=== PATIENT | female | born 1960 | race Caucasian/White ===

== ENCOUNTER 2019-12-18 09:14 | Outpatient (CLI) | payer OTHER, SELFPAY ==
--- NOTE | ~2019-12-18 | XR_ITS ---
EXAMINATION: XR foot LT min 3V EXAM DATE: 12/18/2019 09:34 INDICATION: Initial encounter following injury, with pain of the left foot. TECHNIQUE: Left foot dorsoplantar, lateral and oblique projections obtained and reviewed. There is n o prior study for comparison. FINDINGS: There is mild to moderate left metatarsophalangeal joint primary osteoarthritis. There is mild bunion formation. Subchondral cyst formation at the first metatarsal head. Otherwise, left foot joint spaces are unremarkable. 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 Reviewed, dictated and finalized at location A. E MACHINE HEATER
== END 2019-12-18 09:15 | disposition home or self-care (01) ==
LOC: ANHIMG 09:16
PROVIDERS: PCP Internal Medicine; Visit Provider Internal Medicine
DX: S99.929A Unspecified injury of unspecified foot, initial encounter (principal); M19.072 Primary osteoarthritis, left ankle and foot
CPT/HCPCS: 73630

== ENCOUNTER 2020-03-26 12:59 | Outpatient (CLI) | payer OTHER, SELFPAY ==
--- NOTE | ~2020-03-26 | NM_ITS ---
NM hepatobiliary wo pharm DATE: 03/27/2020 08:02 INDICATION: Right upper quadrant abdominal pain. Gallstones. TECHNIQUE: Serial images of the abdomen were obtained up to 60 minutes after intravenous injection of 4.8 mCi 99M technetium Choletec. The gallbladder ejection fraction was determined after intravenous injection of of 1.5 mcg Kinevac. COMPARISON: 10/19/2016 CT abdomen pelvis: Cholelithiasis was demonstrated FINDINGS: There is hepatic extraction of the radiopharmaceutical. Activity is noted in the common terese e duct within 20 minutes. Gallbladder activity is evident within 45 minutes. The 30 minute gallbladder ejection fraction measures 21%, which is within the lower normal limits. IMPRESSION: Negative gallbladder ejection fraction measures 21%; no evidence of acute cholecystitis Reviewed, dictated and finalized at Location [facility]. Reviewed, dictated and finalized at location A.
== END 2020-03-26 13:00 | disposition home or self-care (01) ==
PROVIDERS: PCP Internal Medicine; Visit Provider Internal Medicine Gastroenterology
DX: R10.11 Right upper quadrant pain (principal); K80.50 Calculus of bile duct without cholangitis or cholecystitis without obstruction
CPT/HCPCS: 78226; A9537

== ENCOUNTER 2020-03-28 07:00 | Outpatient (CLI) | payer OTHER, SELFPAY ==
[2020-03-28 17:05] LABS: SARS-CoV-2 RNA PCR Negative
== END 2020-03-28 07:01 | disposition home or self-care (01) ==
LOC: ANHCOVIDDT 07:00
PROVIDERS: PCP Internal Medicine; Visit Provider Internal Medicine Gastroenterology
DX: Z01.818 Encounter for other preprocedural examination (principal); Z11.59 Encounter for screening for other viral diseases
CPT/HCPCS: 87635; C9803; U0003

== ENCOUNTER 2020-03-31 01:43 | Day surgery (SDC) | payer OTHER, SELFPAY ==
[2020-03-25 14:20] VITALS: BMI 27.5
[2020-03-31 08:22] VITALS: BP 115/64; PULSE 65; RESP 16; TEMP 37.1; O2SAT 98
[2020-03-31] MEDS: LACTATED RINGERS 1,000 ML 150 ML IV CONT (08:26)
--- NOTE | 2020-03-31 08:35 | WPDANESEPPF ---
Anes - Initial Pre Proc Eval Procedure: Operation Date: 03/31/20 09:30 Proposed Procedures p Screening Colonoscopy - Aaron Bradley MD Date/Time: 03/31/20 08:35 Surgeon: Aaron Bradley MD Pre Op Diagnosis: Neoplasm Screening Patient Data Age: 60 Gender: F Height: 5 ft 5 in Weight: 72.3 kg Last Vital Signs Temp 37.1 C 03/31/20 08:22 Pulse 65 03/31/20 08:22 Resp 16 03/31/20 08:22 BP 115/64 03/31/20 08:22 Pulse Ox 98 03/31/20 08:22 Allergies Allergy/AdvReac Type Severity Reaction Status Date / Time Penicillins Allergy Intermediate Hives Verified 03/25/20 14:23 Home Medications Medication Instructions Recorded Confirmed Type pravastatin 40 mg tablet 40 mg PO DAILY #90 tablet 10/25/19 03/25/20 Rx paroxetine HCl 20 mg tablet 20 mg PO DAILY 11/21/19 03/25/20 History carvedilol phosphate 40 mg See Rx Instructions .ROUTE 01/21/20 03/25/20 Rx capsule,[id number] multiphase .COMPLEX #90 cap trazodone 200 mg PO HS 03/25/20 03/25/20 History dextroamphetamine-amphetamine 20 See Rx Instructions PO .COMPLEX 03/28/20 03/31/20 Rx mg tablet #75 tablet Patient hx anesthesia problems: none Family hx anesthesia problems: none PMFSH Past Medical History Medical History Anxiety and depression Attention deficit hyperactivity disorder (ADHD), combined type Grade II diastolic dysfunction History of tongue cancer Mitral valve prolapse Other and unspecified hyperlipidemia Primary insomnia Surgical History Surgical History Endometriosis determined by laparoscopy H/O section History of carpal tunnel release History of tonsillectomy S/P bunionectomy Family History Family History Mother Alzheimer disease Unknown Colon cancer Social History Social History Smoking status: Never smoker Second hand tobacco smoke exposure: No Alcohol intake: current Anes - Eval Final PreProcedure Day of Procedure 03/31/20 08:35 Patient weight: overweight Heart: regular rate and rhythm Lungs: clear to auscultation Airway: Mallampati scale class II Neurological: alert and oriented Last oral intake: >/= 8 hours ASA classification: III Emergent: no Anesthetic plan: proceed Anesthesia type and monitoring: general GIVS and standard monitoring Informed Consent: The patient's anesthetic plan and its attendant risks and benefits were discussed with the patient/family/POA. Questions were solicited and answers provided to the satisfaction of the patient/family/POA.
--- NOTE | 2020-03-31 08:40 | WPDGICN ---
Assessment and Plan Assessment and plan (1) Right sided abdominal pain: Code(s): R10.9 - Unspecified abdominal pain Status: Acute Assessment and Plan: Etiology of pain is somewhat on clear. The pain appears more on the side than typical expectations for gallstones. Plan is for screening colonoscopy to assess for colon and etiology of pain. High-fiber diet is advised. Further recommendations will be given after endoscopy. (2) Gallstones: Code(s): K80.20 - Calculus of gallbladder without cholecystitis without obstruction Status: Acute Assessment and Plan: Gallstones noted a year ago by ultrasound. Pain does not immediately correlate with this finding. To exclude symptomatic gallstones a HIDA scan will be obtained. Further recommendations after HIDA scan. GI Consult Note Consult date/time: 03/31/20 08:40 HPI: Yamileth Sims is a 60 year old female Seen in evaluation at the request Dr. Giovanni Gutierrez. Patient complains of right-sided abdominal pain. Often on for the last several months. She describes as burning and aching. Occasional cramps. Symptoms seem to vary. She has difficulty lying on her right side at night. She does note occasional low back pain. It is not appear related to bowel habits are urinating. No relation to oral intake. She reports that her bowel habits are somewhat irregular. Last colonoscopy was 10 years ago. Recent workup including abdominal ultrasound confirms gallstones. Review of Systems Review of Systems: All systems reviewed & are unremarkable except as noted in HPI and below PMFSH Past Medical History Medical History Anxiety and depression Attention deficit hyperactivity disorder (ADHD), combined type Grade II diastolic dysfunction History of tongue cancer Mitral valve prolapse Other and unspecified hyperlipidemia Primary insomnia Surgical History Surgical History Endometriosis determined by laparoscopy H/O section History of carpal tunnel release History of tonsillectomy S/P bunionectomy Family History Family History Mother Alzheimer disease Unknown Colon cancer Social History Social History Smoking status: Never smoker Second hand tobacco smoke exposure: No Alcohol intake: current Meds Home Medications and Allergies Home Medications Medication Instructions Recorded Confirmed Type pravastatin 40 mg tablet 40 mg PO DAILY #90 tablet 10/25/19 03/25/20 Rx paroxetine HCl 20 mg tablet 20 mg PO DAILY 11/21/19 03/25/20 History carvedilol phosphate 40 mg See Rx Instructions .ROUTE 01/21/20 03/25/20 Rx capsule,[id number] multiphase .COMPLEX #90 cap trazodone 200 mg PO HS 03/25/20 03/25/20 History dextroamphetamine-amphetamine 20 See Rx Instructions PO .COMPLEX 03/28/20 03/31/20 Rx mg tablet #75 tablet Allergies Allergy/AdvReac Type Severity Reaction Status Date / Time Penicillins Allergy Intermediate Hives Verified 03/25/20 14:23 Vital Signs Vital Signs - 24 hr 03/31/20 08:22 Temperature 37.1 C Pulse Rate 65 Respiratory Rate 16 Blood Pressure 115/64 Pulse Oximetry 98 Exam Narrative: Exam Narrative: Physical exam reveals patient to be alert. Comfortable at rest. HEENT exam unremarkable. She is anicteric. Lungs are clear to auscultation and percussion. Heart is without murmur or extra sounds. Abdominal exam bowel sounds are present soft nontender no organomegaly. Laboratory work reveals LFTs to be normal. CBC is normal. An ultrasound 1 year ago revealed asymptomatic gallstones.
[2020-03-31 09:35] VITALS: BP 110/69; PULSE 62; RESP 16; O2SAT 100
[2020-03-31 09:45] VITALS: BP 107/64; PULSE 62; RESP 16; O2SAT 100
[2020-03-31 09:55] VITALS: BP 116/75; PULSE 61; RESP 19; O2SAT 100
== END 2020-03-31 10:25 | disposition home or self-care (01) ==
PROVIDERS: PCP Internal Medicine; Visit Provider Internal Medicine Gastroenterology
PROC: 0DJD8ZZ Inspection of Lower Intestinal Tract, Via Natural or Artificial Opening Endoscopic (ICD-10-PCS; CPT 45378; principal; 2020-03-31 09:30)
DX: Z12.11 Encounter for screening for malignant neoplasm of colon (principal); K57.30 Diverticulosis of large intestine without perforation or abscess without bleeding; K64.8 Other hemorrhoids; R10.9 Unspecified abdominal pain; K80.20 Calculus of gallbladder without cholecystitis without obstruction; F41.8 Other specified anxiety disorders; E78.5 Hyperlipidemia, unspecified; I34.1 Nonrheumatic mitral (valve) prolapse
CPT/HCPCS: 45378; J2001; J2704; J7120

== ENCOUNTER 2020-05-05 13:55 | Outpatient (CLI) | payer OTHER, SELFPAY ==
--- NOTE | 2020-05-05 13:57 | ECG_ITS ---
Measurements Intervals [place] Rate: 56 P: 43 WY: 182 QRS: 65 QRSD: 87 T: 33 QT: 398 QTc: 386 Interpretive Statements SINUS BRADYCARDIA BORDERLINE T WAVE ABNORMALITY- ANTERIOR LEADS BORDERLINE ECG Electronically Signed On 05-05-2020 14:48:40 CDT by Waqas Bruno D.O.
[2020-05-05 14:19] LABS: Hematocrit 43.8 % (37.0-47.0); Hemoglobin 15.3 g/dL (12.0-15.0); Mean Corpuscular HGB Conc 34.9 g/dl (32-36); Mean Corpuscular Hemoglobin 31.3 pg (26-34); Mean Corpuscular Volume 89.6 fl (80-100); Mean Platelet Volume 9.2 fl (7.4-10.4); Platelet Count Result 297 k/mm3 (150-375); Red Blood Count 4.89 M/mm3 (4.2-5.4); Red Cell Distribution Width 12.7 % (11.5-14.5); White Blood Count 5.5 K/mm3 (4.5-10.0)
[2020-05-05 14:26] LABS: Alanine Aminotransferase 15 U/L (4-35); Albumin Level 4.5 g/dL (3.5-5.1); Alkaline Phosphatase 68 U/L (38-126); Amylase 81 U/L (30-110); Aspartate Amino Transferase 27 U/L (14-36); Bilirubin,Total 0.5 mg/dL (0.2-1.3); Lipase 83 U/L (23-300); Magnesium 2.1 mg/dL (1.6-2.3)
== END 2020-05-05 13:56 | disposition home or self-care (01) ==
LOC: ANHSURGERY 13:57
PROVIDERS: PCP Internal Medicine; Visit Provider Surgery
DX: K80.10 Calculus of gallbladder with chronic cholecystitis without obstruction (principal); R94.31 Abnormal electrocardiogram [ECG] [EKG]
CPT/HCPCS: 36415; 80076; 82150; 83690; 83735; 85027; 93005

== ENCOUNTER 2020-05-07 00:10 | Outpatient (CLI) | payer OTHER, SELFPAY ==
[2020-05-07 17:34] LABS: SARS-CoV-2 RNA PCR Negative
== END 2020-05-07 00:11 | disposition home or self-care (01) ==
LOC: ANHCOVIDDT 00:11
PROVIDERS: PCP Internal Medicine; Visit Provider Surgery
DX: Z01.812 Encounter for preprocedural laboratory examination (principal); Z11.59 Encounter for screening for other viral diseases
CPT/HCPCS: 87635; C9803; U0003

== ENCOUNTER 2020-05-09 01:29 | Day surgery (SDC) | payer OTHER, SELFPAY ==
[2020-05-05 10:03] VITALS: BMI 27.3
[2020-05-09] VITALS (12 sets, daily range): BP systolic 94–133; BP diastolic 57–80; PULSE 56–102; RESP 10–18; TEMP 36.1–36.4; O2SAT 93–100
--- NOTE | 2020-05-09 10:48 | WPDANESEPPF ---
Anes - Initial Pre Proc Eval Procedure: Operation Date: 05/09/20 12:00 Proposed Procedures p Laparoscopic Cholecystectomy, Possible Intraoperative Cholangiogram, Possible Open - Aubrey Ronquillo MD Date/Time: 05/09/20 10:48 Surgeon: Aubrey Ronquillo MD Pre Op Diagnosis: Chronic cholecystitis with cholelithiasis Patient Data Age: 60 Gender: F Height: 1.65 m Weight: 74.5 kg Allergies Allergy/AdvReac Type Severity Reaction Status Date / Time Penicillins Allergy Intermediate Hives Verified 05/09/20 10:24 adhesive tape AdvReac Mild RASH, Verified 05/09/20 10:24 ITCHING Home Medications Medication Instructions Recorded Confirmed Type paroxetine HCl 20 mg tablet 20 mg PO DAILY 11/21/19 05/09/20 History pravastatin 40 mg tablet 40 mg PO DAILY #90 tablet 04/21/20 05/09/20 Rx trazodone 100 mg tablet 200 mg PO HS #180 tablet 04/21/20 05/09/20 Rx calcium polycarbophil [FiberCon] 1,250 mg PO DAILY 05/05/20 05/09/20 History carvedilol phosphate 40 mg PO DAILY 05/05/20 05/09/20 History dextroamphetamine-amphetamine 20 mg PO QACLUNCH 05/05/20 05/09/20 History dextroamphetamine-amphetamine 30 mg PO DAILY 05/05/20 05/09/20 History [Adderall] Patient hx anesthesia problems: post op nausea/vomiting Family hx anesthesia problems: none PMFSH Past Medical History Medical History (Updated 05/08/20 @ 08:41 by Hari Foy DO) Anxiety and depression Attention deficit hyperactivity disorder (ADHD), combined type Grade II diastolic dysfunction History of tongue cancer Mitral valve prolapse Other and unspecified hyperlipidemia Primary insomnia SVT (supraventricular tachycardia) 2009 Surgical History Surgical History (Updated 05/01/20 @ 08:46 by Shanique Simpson) Endometriosis determined by laparoscopy H/O section H/O rectal sphincterotomy History of carpal tunnel release History of tonsillectomy S/P bunionectomy Social History Social History Smoking status: Never smoker Second hand tobacco smoke exposure: No Alcohol intake: current Anes - Eval Final PreProcedure Day of Procedure 05/09/20 10:48 Patient weight: overweight Heart: regular rate and rhythm Lungs: clear to auscultation and normal air movement Airway: Mallampati scale class II Neurological: alert and oriented Last oral intake: >/= 8 hours ASA classification: III Emergent: no Anesthetic plan: proceed Anesthesia type and monitoring: general ETT and standard monitoring Informed Consent: The patient's anesthetic plan and its attendant risks and benefits were discussed with the patient/family/POA. Questions were solicited and answers provided to the satisfaction of the patient/family/POA.
[2020-05-09] MEDS: LACTATED RINGERS 1,000 ML 30 ML IV CONT ×2 (10:50→13:17)
--- NOTE | 2020-05-09 11:11 | WPDHPUPDATE1 ---
History and Physical Update Update Date/Time: 05/09/20 11:11 History and Physical has been reviewed, including an updated exam of the patient. There are NO changes in the patient's condition. Risks, benefits, and alternatives have been discussed and questions answered. Patient agrees to proceed with procedure.
[2020-05-09] MEDS: FAMOTIDINE 20 MG/2 ML VIAL IV PUSH (11:22)
[2020-05-09] MEDS: SCOPOLAMINE 1.5 MG PATCH TRANSDERM (11:22)
[2020-05-09] MEDS: CLINDAMYCIN 900 MG/NS 50 ML 900 MG/50 ML PIGGYBACK 50 MG IVPB (11:55)
[2020-05-09] MEDS: BUPIVACAINE/EPINEPHRINE 0.5% 30 ML VIAL INFILTRATE (12:38)
--- NOTE | 2020-05-09 13:29 | PM.PROC ---
Procedure Note - Detailed Date of procedure: 05/09/20 Pre-op diagnosis: Chronic cholecystitis with cholelithiasis Chronic Cholecystitis with Cholelithiasis Post-op diagnosis: same Procedure performed: Laparoscopic Cholecystectomy Description of procedure: Patient was seen preoperatively in the holding area and risks, benefits and alternatives confirmed. Patient was taken to the operating room and general anesthesia was induced. A time out was then preformed with the surgery team confirming patient and site of surgery. The abdomen was prepped and draped in the usual sterile fashion. Incision was made just below the umbilicus with an 11 blade knife. I placed 2 stay sutures of O- Vicryl on either side of the mid-line fascia beneath the umbilicus and was then able to slide in the Armendariz cannula through the fascial defect into the peritoneum. First under low flow and then under high flow the abdomen was insufflated with carbon dioxide never exceeding a pressure of 14. Three 5 mm trocars were then introduced under direct vision. The following trocars were introduced under direct vision: a 5 mm in the epigastrium and two 5 mm trocars along the right costal margin laterally in the subcostal area. There were no significant omental adhesions to the underside of the gallbladder. I then carefully used the L-shaped cautery and the [place] dissector to dissect out the triangle of Calot. I then was able to dissect out both the cystic duct and cystic artery and identify a window of safety. The gall bladder was grasped and the cystic duct and artery were dissected free and clipped with an 5 mm endo-clip truer pinion and wheel. The cystic duct and artery were clipped with use of 2 clips on the patient's side 1 on the gallbladder side utilizing a 5 mm endoclip-truer pinion and wheel. The cystic duct was then transected. The cystic artery was also transected at this point. The gall bladder was removed using electrocautery and then removed from the abdomen using a large 10 mm grasper via the umbilical incision. This patient previously had endometriosis and surgery for that. We noted as we did our exploration that there were some adhesions of the uterus to the anterior abdominal wall there did not appear to be any that were are concerning for possible cause the causing small bowel obstruction. There were not any bandlike adhesions it was more broad adhesions anchoring the anterior surface of the uterus to the anterior the underside of the abdomen. There was also adhesion of the right colon to the lateral abdominal wall. Some pictures of this were taken we did not see any thing that looked like implants of endometriosis at this time. The trocars were removed visualizing hemostasis and the remaining gas evacuated. The large trocar site at the umbilicus was closed with use of the 2 stay sutures of 0 Vicryl mentioned above and also a figure of 8 O-Vicryl suture. The 2 stay sutures mentioned above on either side of the fascia were also tied together to help approximate this midline fascia. Further local anesthetic was placed into each incision for postop pain control. The skin incisions were closed with subcuticular suture of 4-0 Monocryl. Surgical glue then was applied to all the incisions. Patient tolerated the procedure well was taken to the recovery room in good condition. Anesthesia: GETA Surgeon: Aubrey Ronquillo MD Hvac Service Technician: Rae OGDEN, OR visitor services assistant Estimated blood loss (mL): 10 Drains: No Packing: No Pathology: yes (Gallbladder) Complications: No immediate complications Condition: stable Disposition: PACU Findings: Non-inflamed gallbladder with some palpable stones within it upon removal.
[2020-05-09] MEDS: HYDROMORPHONE HCL 2 MG/ML VIAL 0.5 MG IV PUSH (14:24)
== END 2020-05-09 16:38 | disposition home or self-care (01) ==
PROVIDERS: PCP Internal Medicine; Visit Provider Surgery
PROC: 0FT44ZZ Resection of Gallbladder, Percutaneous Endoscopic Approach (ICD-10-PCS; CPT 47562; principal; 2020-05-09 12:00)
DX: K80.10 Calculus of gallbladder with chronic cholecystitis without obstruction (principal); F41.8 Other specified anxiety disorders; F90.2 Attention-deficit hyperactivity disorder, combined type; E78.5 Hyperlipidemia, unspecified; I34.1 Nonrheumatic mitral (valve) prolapse
CPT/HCPCS: 47562; 88304; A9270; J0131; J1100; J1170; J2250; J2405; J2704; J2710; J3010; J7120; Q9966

== ENCOUNTER 2020-05-23 09:21 | Outpatient (CLI) | payer OTHER, SELFPAY ==
[2020-05-23 09:53] LABS: Basophils Percent Auto 0.7 % (0.2-1.2); Eosinophils Absolute Auto 0.2 K/mm3 (0-0.3); Eosinophils Percent Auto 4.2 % (0-4.4); Hematocrit 44.3 % (37.0-47.0); Hemoglobin 15.4 g/dL (12.0-15.0); Immature Granulocyte Absolute 0.02 K/mm3 (0.00-0.031); Immature Granulocyte Percent A 0.4 % (0-0.5); Lymphocytes Absolute Auto 1.47 K/mm3 (0.9-3.2); Lymphocytes Percent Auto 26.6 % (18.3-44.2); Mean Corpuscular HGB Conc 34.8 g/dl (32-36); Mean Corpuscular Hemoglobin 31.3 pg (26-34); Mean Platelet Volume 9.6 fl (7.4-10.4); Monocytes Absolute Auto 0.4 K/mm3 (0.1-0.6); Monocytes Percent Auto 7.2 % (2.6-8.5); Neutrophils Absolute Auto 3.4 K/mm3 (1.3-6.7); Neutrophils Percent Auto 60.9 % (45.5-73.1); Platelet Count Result 358 k/mm3 (150-375); Red Blood Count 4.92 M/mm3 (4.2-5.4); Red Cell Distribution Width 12.4 % (11.5-14.5); White Blood Count 5.5 K/mm3 (4.5-10.0)
[2020-05-23 10:05] LABS: Cholesterol 174 mg/dL (0-200); HDL Direct 49 mg/dL; Triglycerides 134 mg/dL (<150)
[2020-05-23 10:06] LABS: Alanine Aminotransferase 16 U/L (4-35); Albumin Level 4.4 g/dL (3.5-5.1); Alkaline Phosphatase 73 U/L (38-126); Aspartate Amino Transferase 29 U/L (14-36); Bilirubin,Total 0.5 mg/dL (0.2-1.3); Blood Urea Nitrogen 11 mg/dL (7-17); Calcium 9.4 mg/dL (8.4-10.2); Carbon Dioxide 33 mmol/L (22-30); Chloride 98 mmol/L (98-107); Estimated Glomerular Filt Rate > 60; Glucose 102 mg/dL (65-105); Potassium 4.2 mmol/L (3.4-5.0); Sodium 138 mmol/L (137-145)
[2020-05-23 10:15] LABS: LDL Cholesterol Direct 86 mg/dL
== END 2020-05-23 09:22 | disposition home or self-care (01) ==
PROVIDERS: PCP Internal Medicine; Visit Provider Nurse Practitioner Family
DX: K80.10 Calculus of gallbladder with chronic cholecystitis without obstruction (principal)
CPT/HCPCS: 36415; 80053; 80061; 85025

== ENCOUNTER 2020-08-15 07:40 | Outpatient (CLI) | payer OTHER, SELFPAY ==
--- NOTE | ~2020-08-15 | DEXA_ITS ---
Bone Density Report Name: Yamileth Sims Age: 60 Sex: Female Ethnicity: White Date of : 1960 Indication: postmenopausal; cancer; Referring Provider: Yocasta Holliday Study: Bone densitometry was performed. Exam Date: August 15, 2020 Accession number: [id number] Bone Density: Region BMD T-score Z-score Classification AP Spine (L1-L4) 1.131 0.8 2.1 Normal Femoral Neck (Left) 0.911 0.6 1.8 Normal Total Hip (Left) 1.072 1.1 2.0 Normal Total Hip Bilateral Avg 1.062 1.0 1.9 Normal Femoral Neck (Right) 0.835 -0.1 1.1 Normal Total Hip (Right) 1.051 0.9 1.8 Normal World Health Organization criteria for BMD impression classify patients as: Normal (T-score at or above -1.0), Osteopenia (T-score between -1.0 and -2.5), or Osteoporosis (T-score at or below -2.5). 10-year Fracture Risk: FRAX not reported because: All T-scores for Spine Total, Hip Total, Femoral Neck at or above -1.0 Clinical Information Provided by Patient: Has the following medical conditions: Cancer Patient maximum height was 65 Menopause Age: 56 No regular weight bearing exercise Drinks caffeinated beverages Onset of menses at age 14 Number of children 2 Impression: The patient has normal bone mass. Discussion: BONE DENSITY IS ABOVE THE MINIMUM DESIRABLE LEVEL AT ALL SKELETAL SITES TESTED. This patient?s bone mineral density is above the minimum desirable level (T-score -1.0 or better) at all sites measured. The patient should follow a healthful lifestyle (good nutrition with adequate calcium and vitamin D, and appropriate weight-bearing exercise). Follow-Up: Consider repeating this study in 5 years or sooner if there is some new clinical indication. Reported by: [facility] on 08/15/2020 8:02:00 AM. Reviewed, dictated and finalized at location A. [facility]
--- NOTE | ~2020-08-15 | MM_ITS ---
EXAMINATION: MM screening [facility] BI w kristen HISTORY: Screening mammogram TECHNIQUE: Craniocaudal and mediolateral oblique 3-D tomosynthesis images were obtained and synthetic 2-D images were generated. CAD analysis was submitted and interpreted. COMPARISON: 07/17/2019, 07/14/2018, 07/25/2017 BREAST PARENCHYMAL COMPOSITION: The breasts are extremely dense, which lowers the sensitivity of mamm ography. FINDINGS: There is no evidence of suspicious mass, calcification, or architectural distortion to sugg est malignancy in either breast. There has been no suspicious interval change. IMPRESSION: 1. No mammographic evidence of malignancy. 2. Recommend routine screening mammography in one year. BI-RADS Category 1: Negative Reviewed, dictated and finalized at location A.
== END 2020-08-15 07:41 | disposition home or self-care (01) ==
LOC: ANHIMG 07:41
PROVIDERS: PCP Internal Medicine; Visit Provider Nurse Practitioner
DX: Z12.31 Encounter for screening mammogram for malignant neoplasm of breast (principal); Z78.0 Asymptomatic menopausal state
CPT/HCPCS: 77063; 77067; 77080

== ENCOUNTER 2020-11-11 18:49 | Outpatient (CLI) | payer OTHER, SELFPAY ==
--- NOTE | ~2020-11-11 | XR_ITS ---
EXAMINATION: XR lumbar spine 2-3V DATE: 11/11/2020 19:04 INDICATION: Low back pain TECHNIQUE: Anteroposterior and lateral views of the lumbar spine, and cone-down lateral view of the l umbosacral junction were obtained. COMPARISON: 10/15/2016 FINDINGS: There are 3 mm of stable retrolisthesis at L2-3 and L3-4 and 4 mm of stable anterolisthesis of L4 on L5. The vertebral body heights are maintained. There is mild chronic loss of intervertebral disc space height at L2-3 and L4-5. No fracture is identified. There is moderate lower facet osteoar thritis. Small degenerative osteophytes project from the anterior endplates of multiple vertebral bod ies. Surgical clips in the right upper quadrant are likely from prior cholecystectomy. IMPRESSION: 1. Moderate lumbar spondylosis without acute findings or significant interval change. Reviewed, dictated and finalized at location A. 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 Moderate lumbar spondylosis without acute findings or significant interval yulia talley
== END 2020-11-11 18:50 | disposition home or self-care (01) ==
LOC: ANHIMG 18:50
PROVIDERS: PCP Internal Medicine; Visit Provider Nurse Practitioner
DX: M47.896 Other spondylosis, lumbar region (principal)
CPT/HCPCS: 72100

== ENCOUNTER 2021-08-17 08:40 | Outpatient (CLI) | payer OTHER, SELFPAY ==
--- NOTE | ~2021-08-17 | MM_ITS ---
EXAMINATION: MM screening [facility] BI w kristen HISTORY: Screening mammogram TECHNIQUE: Craniocaudal and mediolateral oblique 3-D tomosynthesis images were obtained and synthetic 2-D images were generated. CAD analysis was submitted and interpreted. COMPARISON: 08/15/2020, 07/17/2019, 07/14/2019 BREAST PARENCHYMAL COMPOSITION: The breasts are extremely dense, which lowers the sensitivity of mamm ography. FINDINGS: There is no evidence of suspicious mass, calcification, or architectural distortion to sugg est malignancy in either breast. There has been no suspicious interval change. IMPRESSION: 1. No mammographic evidence of malignancy. 2. Recommend routine screening mammography in one year. BI-RADS Category 1: Negative Reviewed, dictated and finalized at location A.
== END 2021-08-17 08:41 | disposition home or self-care (01) ==
LOC: ANHIMG 08:42
PROVIDERS: PCP Internal Medicine; Visit Provider Nurse Practitioner Obstetrics & Gynecology
DX: Z12.31 Encounter for screening mammogram for malignant neoplasm of breast (principal)
CPT/HCPCS: 77063; 77067

== ENCOUNTER 2021-11-23 12:20 | Outpatient (CLI) | payer OTHER, SELFPAY ==
--- NOTE | ~2021-11-23 | XR_ITS ---
EXAMINATION: XR wrist LT min 3V EXAM DATE: 11/23/2021 12:42 INDICATION: Left Wrist Pain Falling Injury In . TECHNIQUE: Left wrist frontal, frontal with ulnar deviation, oblique and lateral projections obtained and reviewed. There is no prior study for comparison. FINDINGS: Left wrist scapholunate joint space is maintained. There is moderate 1st carpometacarpal pr imary osteoarthritis. There are no acute fractures or dislocations identified. There is no subcutane ous gas. The soft tissue is unremarkable. There are no radiopaque foreign bodies. IMPRESSION: 1. XR wrist LT min 3V exam without acute osseous findings. Reviewed, dictated and finalized at location A. GLOSSER
== END 2021-11-23 12:21 | disposition home or self-care (01) ==
PROVIDERS: PCP Internal Medicine; Visit Provider Plastic Surgery
DX: M19.032 Primary osteoarthritis, left wrist (principal)
CPT/HCPCS: 73110

== ENCOUNTER 2021-12-23 16:00 | Outpatient (RCR) | payer OTHER, SELFPAY ==
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
--- NOTE | 2021-11-26 07:33 | PCPTNOTE ---
Patient did not show up for scheduled appointment this date. She did call later to inform our clinic she over slept. She was rescheduled.
--- NOTE | 2021-12-02 12:04 | PCPTNOTE ---
Patient called & cancelled scheduled appointment this date due to having a last minute meeting at work.
--- NOTE | 2021-12-14 15:32 | PCPTNOTE ---
Patient called & cancelled scheduled appointment this date due to having car problems.
--- NOTE | 2021-12-17 11:45 | PCPTNOTE ---
Patient called & cancelled scheduled appointment this date due to snowy weather.
--- NOTE | 2021-12-21 15:22 | PCPTNOTE ---
Patient called & cancelled scheduled appointment this date due to family emergency. Pt's Aunt has been on hospice and she received an urgent call. Will continue per POC.
--- NOTE | 2021-12-25 07:15 | PCPTNOTE ---
Patient did not show up for scheduled appointment this date. Called pt due to her her no show, she states she over slept. Attempted to give her later times, but the times did not work with her sched. Her re-eval is scheduled for 12/28.
--- NOTE | 2021-12-28 16:27 | PCPTNOTE ---
Patient did not show up for scheduled appointment this date. She had been reminded of this visit last week on 12/25/21 after her no show for that visit. Will plan to DC per no show policy
--- NOTE | 2022-01-12 10:31 | PCPTNOTE ---
Admitting Provider: Attending Provider: Giovanni Gutierrez DO Patient:Yamileth Sims Date of :1960 Physical Therapy Discharge Note Patient has not returned for any further treatments since 12/23/2021, therefore she will be discharged at this time. Patient?s initial visit was on 11/24/2021 and she had a total of 7 visits with 6 cancelled or no show visits. The goals have been not met due to limited visits attended. Thank you for referring this patient to [facility]. Please review, sign, date and return this discharge summary SOURAV. I have been updated about the patient's current status and I agree with discharge from the above service at this time. Referring Physician Date
== END 2022-01-13 09:08 | disposition home or self-care (01) ==
LOC: ANHPT 16:00
PROVIDERS: PCP Internal Medicine; Visit Provider Internal Medicine
DX: M79.605 Pain in left leg (principal); M54.50 Low back pain, unspecified; G89.29 Other chronic pain
CPT/HCPCS: 97014; 97110; 97162; G0283

== ENCOUNTER 2022-01-01 13:07 | Outpatient (CLI) | payer OTHER, SELFPAY ==
--- NOTE | ~2022-01-01 | MMUS_ITS ---
EXAMINATION: MM diagnostic gertrude LT w kristen, US breast LT limited HISTORY: Palpable left breast lump TECHNIQUE: Additional 3-D tomosynthesis images of the left breast were performed and synthetic 2-D im ages were generated. CAD analysis was submitted and interpreted. High resolution Limited left breast ultrasound was performed. COMPARISON: Comparison to multiple prior studies sequentially, with oldest reviewed study dated 07/11. BREAST PARENCHYMAL COMPOSITION: The breasts are extremely dense, which lowers the sensitivity of mamm ography. FINDINGS: MAMMOGRAPHIC FINDINGS: There is a new mass in the upper inner quadrant of the left breast which is obscured by dense fibrogl andular tissue. There are no suspicious calcifications or architectural distortion. ULTRASOUND: Limited left breast ultrasound: At 10:00, 8 cm from the nipple there is an irregular shaped hypoechoi c mass with mixed posterior attenuation measuring 3.3 x 2.9 x 2.4 cm. There are angular margins and i nternal vascularity. IMPRESSION: 1. Irregular heterogeneous left breast mass at 10:00, 8 cm from the nipple corresponding to the area of mammographic abnormality. 2. Ultrasound-guided left breast biopsy recommended. BI-RADS category 4, suspicious findings. Reviewed, dictated and finalized at location A. 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 Irregular heterogeneous left breast mass at 10:00, 8 cm from the nipple mirna esponding to the area of mammographic abnormality. 2. Ultrasound-guided left breast biopsy recommended. BI-RADS category 4, suspicious findings.
== END 2022-01-01 13:08 | disposition home or self-care (01) ==
LOC: ANHIMG 13:13
PROVIDERS: PCP Internal Medicine; Visit Provider Nurse Practitioner Obstetrics & Gynecology
DX: N64.4 Mastodynia (principal); R92.8 Other abnormal and inconclusive findings on diagnostic imaging of breast
CPT/HCPCS: 76642; 77061; 77065; G0279

== ENCOUNTER → 2022-05-21 02:03 | Outpatient (CLI) | payer OTHER, SELFPAY ==
[2022-05-21 12:28] LABS: SARS-CoV-2 RNA PCR Positive
== END ==
PROVIDERS: PCP Internal Medicine; Visit Provider Nurse Practitioner
DX: U07.1 COVID-19 (principal)
CPT/HCPCS: C9803; U0003; U0005

== ENCOUNTER 2024-04-10 13:44 | Outpatient (CLI) | payer OTHER, SELFPAY ==
--- NOTE | ~2024-04-10 | XR_ITS ---
Left foot Technique: AP, oblique, and lateral views were obtained. Clinical History: Pain Findings: There is an acute, transverse, essentially nondisplaced fracture the base of the fifth meta tarsal.. There is mild degenerative change of the first MTP joint region. Soft tissues are unremarkab le. Impression: Acute fracture of the base the fifth metatarsal, as detailed above. Mild degenerative change about the first MTP joint. Reviewed, dictated and finalized at location M. Impression: Acute fracture of the base the fifth metatarsal, as detailed above. Mild degenerative change about the first MTP joint.
--- NOTE | ~2024-04-10 | XR_ITS ---
Left ankle Technique: AP, oblique, and lateral views were obtained. Clinical History: Pain Findings: There is an acute, transverse, nondisplaced fracture the base the fifth metatarsal. No othe r fracture or dislocation seen. Ankle mortise and other visualized joint spaces are preserved. Soft tissues are otherwise unremarkable. Impression: Acute fracture the base of fifth metatarsal, as detailed above. Reviewed, dictated and finalized at location M. Impression: Acute fracture the base of fifth metatarsal, as detailed above.
== END 2024-04-10 13:45 | disposition home or self-care (01) ==
LOC: ANHIMG 13:45
PROVIDERS: PCP Nurse Practitioner Family; Visit Provider Nurse Practitioner Family
DX: S92.355A Nondisplaced fracture of fifth metatarsal bone, left foot, initial encounter for closed fracture (principal); M19.072 Primary osteoarthritis, left ankle and foot; X58.XXXA Exposure to other specified factors, initial encounter
CPT/HCPCS: 73610; 73630

== ENCOUNTER 2025-04-01 17:40 | Outpatient (CLI) | payer OTHER, SELFPAY ==
--- NOTE | ~2025-04-01 | XR_ITS ---
EXAM: XR wrist RT min 3V DATE: 04/01/2025 17:54 HISTORY: Right wrist pain, FELL YESTERDAY, PAIN ANTERIOR AN POSTERIOR . COMPARISON: None available. FINDINGS: Osteopenia. No fracture or dislocation. No lytic or blastic lesion. Mild scattered degener ative change. Ulnar negative variance. No erosion or periosteal change. Soft tissues within normal li mits. IMPRESSION: No acute osseous finding in the right wrist. Reviewed, dictated and finalized at location K.
--- OUTSIDE RECORDS SUMMARY | 2025-04-01 17:44 | XMS_ITS | Encounter Summary ---
Author Organization [facility] Address [address] [place] [address] Care Team Providers Care Industrial Radiographer Name Role Phone Wei Swan MD Primary Care Provider [phone] Encounter Details Date Type Department Care Team (Late st Contact Info) Description 06/19/2020 Lab Requisition [facility] Care DermPath Lab [address] [place] [id number] Phillip Sims MD [address] [place] [address] Social History Tobacco Use Types Packs/Day Years Used Date Smoking Tobacco: Never Smokeless Tobacco: Never Alcohol Use Standard Drinks/Week Comments Yes 0 (1 standard drink = 0.6 oz pur e alcohol) Comments Unknown Sex and Gender Information Value Date Recorded Sex Assigned at Not on file 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 Gender Identity Not on file Sexual Orientation Not on file documented as of this encounter Plan of Treatment Not on file documented as of this encounter Procedures Procedure Name Priority Date/Time Associated Diagnosis Comments DERMATOPATHOLOGY Routine 06/18/2020 12:0 0 AM CDT documented in this encounter Results * DERMATOPATHOLOGY (06/18/2020 12:00 AM CDT) Case Report Dermatopathology Report Case: [id number] Authorizing Provider: Phillip Sims MD Collected: 06/18/2020 12:00 AM Ordering Location: [facility] Care DermPath Lab Received: 06/19/2020 12:27 PM Pathologist: Krzysztof Larson MD Specimens: A) - Skin, right medial breast B) - Skin, dependent left lat breast 0 12:34 PM CDT DERMATOPATHOLOGY LABORATORY Final Diagnosis Specimen A. SKIN, right medial breast: LICHEN PLANUS-LIKE KERATOSIS (BENIGN LICHENOID KERATOSIS), RESOVLING (L82.1) Specimen B. SKIN, dependent left lat breast: LICHEN PLANUS-LIKE KERATOSIS (BENIGN LICHENOID KERATOSIS) (L82.1) 0 12:34 PM CDT DERMATOPATHOLOGY LABORATORY at 1234 CDT Clinical History A-B: R/O dys nevus. 0 12:34 PM CDT DERMATOPATHOLOGY LABORATORY Gross Description Specimen A: Received is one formalin filled container labeled with the patient's name and designated right medial breast. The specimen consists of a shave biopsy measuring [id number]. Jar 0. Specimen B: Received is one formalin filled container labeled with the patient's name and designated dependent left lat breast. The specimen consists of a shave biopsy (2 pieces) measuring [id number] & [id number]. Jar 0. 0 12:34 PM CDT DERMATOPATHOLOGY LABORATORY Microscopic Description Specimen A. SKIN, right medial breast: The epidermis is mildly acanthotic. There is a focal lichenoid infiltrate with vacuolar changes of basilar keratinocytes and scattered necrotic keratinocytes. The number of melanocytes, highlighted by MART-1/Melan-A immunohistochemical staining, is only mildly increased. Specimen B. SKIN, dependent left lat breast: The epidermis is mildly acanthotic. There is a lichenoid infiltrate with vacuolar changes of basilar keratinocytes and scattered necrotic keratinocytes. The number of melanocytes, highlighted by MART-1/Melan-A immunohistochemical staining, is only mildly increased. 0 12:34 PM CDT DERMATOPATHOLOGY LABORATORY Disclaimer An external and internal positive and negative controls are appropriate for the histochemical, immunohistochemical and immunofluorescence stain(s) in this case (if any), except where stated explicitly. The performance characteristics of the stain(s) cited in this report were developed and its performance characteristic determined by the Dermatopathology Laboratory at [facility], directed by Dr. Deepthi Larson. These tests need not be, and therefore are not, approved by the [place] Food and Drug Administration. The tests are used for clinical purposes. Billing Codes Specimen Charges Stain Charges 71814 72345 1 1 [id number] [id number] 1 1 0 12:34 PM CDT DERMATOPATHOLOGY LABORATORY Embedded Images 0 12:34 PM CDT DERMATOPATHOLOGY LABORATORY Pathology/Cytology TISSUE SPECIMEN FROM SKIN / Unknown 06/18/2020 06/19/2020 12:27 PM CDT Miscellaneous samples (specimen) TISSUE SPECIMEN FROM SKIN / Unknown 06/18/2020 06/19/2020 12:27 PM CDT Phillip Sims MD LAB - PATHOLOGY/CYTOLOGY ORD ERABLES Final Result DERMATOPATHOLOGY LABORATORY [facility] - Department of Dermatology Distance Education Coordinator Center/[address] [phone] documented in this encounter Visit Diagnoses Not on filedocumented in this encounter Care Teams Industrial Radiographer Relationship Specialty Start Date End Date Wei Swan MD [address] [place] [address] PCP - General 06/28/17 documented as of this encounter
--- OUTSIDE RECORDS SUMMARY | 2025-04-01 17:44 | XMS_ITS | Encounter Summary ---
Author Organization [facility] Address [address] [place] [address] Phone Care Team Providers Care Correspondence Renew Clerk Name Role Phone Yasir Gonzalez MD Unavailable Aft, Ciara Dorsey MD PhD Unavailable [phone] Monika Bryant MD Unavailable Yeny Oliveira PhD Unavailable [phone] Yossi Reaves MD Primary Care Provider [phone] Jessenia Vaughn POWERTRAIN ENGINEER Unavailable [phone] Encounter Details Date Type Department Care Team (Latest Contact Info) Description 10/15/2024 Orders Only [facility] Scanning, Provider Social History Tobacco Use Types Packs/Day Years [...] on file 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 Gender Identity Female 03/11/2022 12:06 PM CDT Sexual Orientation Straight 03/11/2022 12 :06 PM CDT documented as of this encounter Plan of Treatment Not on file documented as of this encounter Procedures Procedure Name Priority Date/Time Associated Diagnosis Comments SCAN - LABS 10/15/2024 documented in this encounter Results * SCAN - LABS (10/15/2024) us Provider Scanning Edited Result - Final documented in this encounter Visit Diagnoses Not on filedocumented in this encounter Care Teams Correspondence Renew Clerk Relationship Specialty Start Date End Date Yossi Reaves MD [address] [place] [address] PCP - General Family Practice 09/02/23 Yasir Gonzalez MD [address] [place] [address] Consulting Physician Medical Oncology 03/08/22 Aft, Ciara Dorsey MD PhD [address] [place] [address] Surgeon Surgical Oncology 03/16/22 Monika Bryant MD [address] [place] [address] Radiation Oncologist Radiation Oncology 11/25/22 Yeny Oliveira, PhD [address] [place] [address] Nurse Practitioner Radiation Oncology 02/07/23 Jessenia Vaughn NP [address] [place] [address] Nurse Practitioner Nurse Practitioner 09/05/23 documented as of this encounter
--- OUTSIDE RECORDS SUMMARY | 2025-04-01 17:44 | XMS_ITS | Encounter Summary ---
Author Organization [facility] Address [address] [place] [address] Phone Care Team Providers Care Watch Electrician Name Role Phone Yasir Gonzalez MD Unavailable Aft, Ciara Dorsey MD PhD Unavailable Monika Bryant MD Unavailable Yeny Oliveira PhD Unavailable [phone] Yossi Reaves MD Primary Care Provider [phone] Jessenia Vaughn BAND INSTRUMENT MAKER Unavailable [phone] Encounter Details Date Type Department Care Team (Latest Contact Info) Description 10/03/2024 Orders Only [facility] Scanning, Provider [...] on file 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 Gender Identity Female 03/11/2022 12:06 PM CDT Sexual Orientation Straight 03/11/2022 12 :06 PM CDT documented as of this encounter Plan of Treatment Not on file documented as of this encounter Procedures Procedure Name Priority Date/Time Associated Diagnosis Comments SCAN - PATHOLOGY 10/03/2024 documented in this encounter Results * SCAN - PATHOLOGY (10/03/2024) us Provider Scanning Final Result documented in this encounter Visit Diagnoses Not on filedocumented in this encounter Care Teams Watch Electrician Relationship Specialty Start Date End Date Yossi Reaves MD [address] [place] [address] PCP - General Family Practice 09/02/23 Yasir Gonzalez MD [address] [place] [address] Consulting Physician Medical Oncology 03/08/22 Aft, Ciara Dorsey MD PhD [address] [place] [address] Surgeon Surgical Oncology 03/16/22 Monika Bryant MD [address] [place] [address] Radiation Oncologist Radiation Oncology 11/25/22 Yeny Oliveira, PhD [address] [place] [address] Nurse Practitioner Radiation Oncology 02/07/23 Jessenia Vaughn NP [address] [place] [address] Nurse Practitioner Nurse Practitioner 09/05/23 documented as of this encounter
--- OUTSIDE RECORDS SUMMARY | 2025-04-01 17:44 | XMS_ITS | Clinical Summary ---
Author Organization [facility] Address [address] [place] [address] Care Team Providers Care Supervisor Painting Department Name Role Phone Yasir Gonzalez MD Unavailable Aft, Ciara Dorsey MD PhD Unavailable [phone] Monika Bryant MD Unavailable Yeny Oliveira PhD Unavailable [phone] Yossi Reaves MD Primary Care Provider [phone] Jessenia Vaughn AUTO BODY PAINTER Unavailable [phone] Allergies Active Allergy Reactions Criticality Noted Date Comments Adhesive Rash Medium 02/05/2022 Penicillins Hives,Itching Medium 02/05/2022 Medications carvedilol CR (COREG CR) 40 mg 24 hr capsuleIndicati ons:hypertensio n Take 1 capsule (40 mg total) by mouth every morning 12/01/19 22 Active omeprazole (PriLOSEC) 20 mg capsuleIndicati ons:Treatment of Non-Bleeding Gastric Disorder Take 1 capsule (20 mg total) by mouth every morning 12/11/19 22 Active pravastatin (PRAVACHOL) 40 mg tabletIndicatio ns:hyperlipidem ia Take 1 tablet (40 mg total) by mouth every morning 01/28/20 22 Active traZODone (DESYREL) 100 mg tabletIndicatio ns:insomnia associated with depression Take 1 tablet (100 mg total) by mouth nightly 05/11/20 17 Active acetaminophen (TYLENOL) 500 mg tabletIndicatio ns:Pain Take 1 tablet (500 mg total) by mouth as needed for pain Active ibuprofen (ADVIL,MOTRIN) 200 mg tab/cap Take 1 tablet/capsule (200 mg total) by mouth 2 (two) times a day as needed for pain 05/03/20 22 Active PARoxetine (PAXIL) 20 mg tabletIndicatio ns:night sweats Take 1 tablet (20 mg total) by mouth nightly Active doxycycline (PERIOSTAT) 20 mg tablet Take 1 tablet (20 mg total) by mouth 2 (two) times a day Active dextroamphetami ne sulfate (DEXTROSTAT) 15 mg tablet Active vibegron (Gemtesa) 75 mg tabletIndicatio ns:Urinary Urge Incontinence Take 75 mg by mouth nightly Active DULoxetine DR (CYMBALTA) 30 mg capsule Take 1 capsule (30 mg total) by mouth 2 (two) times a day 10/04/20 23 Active Vyvanse 40 mg capsule Take 1 capsule (40 mg total) by mouth daily 10/10/20 23 Active loperamide (IMODIUM) 2 mg capsuleIndicati ons: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 breast in female, estrogen receptor positive (HCC) Take 2 caps (4 mg) by mouth with first onset of diarrhea, 1 cap (2 mg) after each loose stool thereafter. Max 8 caps (16 mg) per 24 hours. 60 capsule 3 12/02/19 24 Active dextroamphetami ne-amphetamine (ADDERALL) 15 mg tablet TAKE 1 TABLET BY MOUTH TWICE DAILY 4 TO 6 HOURS APART 12/20/19 24 Active scopolamine 1 mg over 3 days patch 3 day APPLY 1 PATCH TOPICALLY TO THE SKIN EVERY 3 DAYS NEEDED FOR MOTION SICKNESS 12/27/19 24 Active al & mag hydroxide simethicone-dip henhydramine-li docaine-nystati n (MAGIC MOUTHWASH) suspension 2-6-3-1Indicati ons:Mouth sores Swish and swallow 10 mL every 4 (four) hours as needed (Mouth pain) 400 mL 1 01/20/[address] (CYMBALTA) 60 mg capsule Take 1 capsule (60 mg total) by mouth daily 01/19/20 24 Active nystatin cream Apply topically 2 (two) times a day To affected area until resolved 30 g 1 02/17/20 24 Active ondansetron (ZOFRAN) 8 mg tabletIndicatio ns: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 breast in female, estrogen receptor positive (HCC),Nausea and vomiting, unspecified vomiting type TAKE 1 TABLET BY MOUTH EVERY 8 HOURS NEEDED FOR NAUSEA AND VOMITING 30 tablet 3 07/17/20 24 Active docusate sodium (COLACE) 100 mg capsuleIndicati ons: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 breast in female, estrogen receptor positive (HCC),Constipat ion, unspecified constipation type TAKE 1 CAPSULE BY MOUTH 2 TIMES A DAY NEEDED FOR CONSTIPATION 60 capsule 1 09/03/20 24 Active prochlorperazin e (COMPAZINE) 10 mg tabletIndicatio ns: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 breast in female, estrogen receptor positive (HCC),Nausea TAKE 1 TABLET(10 MG) BY MOUTH EVERY 6 HOURS NEEDED FOR NAUSEA 60 tablet 1 09/20/20 24 Active abemaciclib (VERZENIO) 150 mg tabletIndicatio ns: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 breast in female, estrogen receptor positive (HCC) Take 1 tablet (150 mg total) by mouth 2 (two) times a day 56 tablet 11 10/16/20 24 Active anastrozole (ARIMIDEX) 1 mg tabletIndicatio ns: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 breast in female, estrogen receptor positive (HCC) TAKE 1 TABLET BY MOUTH EVERY DAY 90 tablet 3 10/31/20 24 Active dicyclomine (BENTYL) 20 mg tabletIndicatio ns:Abdominal cramping TAKE 1 TABLET(20 MG) BY MOUTH EVERY 6 HOURS 120 tablet 1 02/16/20 25 Active gabapentin (NEURONTIN) 300 mg capsuleIndicati ons: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 breast in female, estrogen receptor positive (HCC) TAKE 1 CAPSULE BY MOUTH EVERY MORNING AND 2 CAPSULES BY MOUTH AT NIGHT 90 capsule 3 03/14/20 25 Active gabapentin (NEURONTIN) 300 mg capsuleIndicati ons: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 breast in female, estrogen receptor positive (HCC) TAKE 1 CAPSULE BY MOUTH EVERY MORNING AND 2 CAPSULES BY MOUTH AT NIGHT 90 capsule 3 11/19/192024 Discontinued Active Problems Problem Noted Date Diagnosed Date Closed displaced fracture of fifth metatarsal bone of left foot 04/12/2024 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 SVT (supraventricular tachycardia) 05/01/2022 Assessment & Plan (05/03/2022 12:59 PM CDT): EKG with sinus tachycardia on admission. Continue home coreg Assessment & Plan (05/01/2022 6:19 AM CDT): EKG pending. RRR on auscultation Continue home coreg Hypertension 05/01/2022 Assessment & Plan (05/02/2022 12:24 PM CDT): Continue on coreg as above Assessment & Plan (05/01/2022 6:20 AM CDT): Continue on coreg as above Malignant neoplasm of upper- outer quadrant of left breast in female, estrogen receptor positive 03/08/2022 Cancer Staging:Clinical stage from 02/24/2022:Stage IIA(cT2, cN0(f), cM0, G3, ER+, SC+, HER2-) - Signed by Ilda Jenkins MD on 11/25/2022 Pathologic stage from 10/05/2022:No Stage Recommended(ypT1a, pN1mi(sn), cM0, GX, ER+, SC+, HER2-) - Signed by Ilda Jenkins MD on 11/25/2022 Overview (03/08/2022): Added automatically from request for surgery [id number] Assessment & Plan (05/03/2022 12:59 PM CDT): Diagnosed on 02/2022 with high-grade HR+ HER2 negative breast cancer. Most recently received cycle 3 of ddAC on 04/23/22. Presented with neutropenic fever Followed by Dr. Gonzalez Med onc consulted and followed recommendation. Assessment & Plan (05/01/2022 6:19 AM CDT): Diagnosis 02/2022 with high-grade HR+ HER2 negative breast cancer. Most recently received cycle 3 of ddAC on 04/23/22. Now presents with neutropenic fever Followed by Dr. Gonzalez Touch base with Onc team in AM Abnormal MRI, breast 02/24/2022 Resolved Problems Problem Noted Date Diagnosed Date Resolved Date Neutropenic fever 05/01/2022 06/15/2024 Assessment & Plan (05/03/2022 1:01 PM CDT): Presented after being found febrile at home to 102.7. T. On arrival of 100.1. Severe neutropenia with ANC of 0.1 on presentation, likely secondary to chemotherapy. CXR with only atelectasis, UA unremarkable. RVP negative. Blood cx from 05/01 with NGTD. No other localizing signs/symptoms of infection - patient was initiated on empiric antibiotics with cefepime on admission but as counts recovered (ANC on 05/02 and 05/03 are both above 1000), will dc antibiotic and discharge patient today. Assessment & Plan (05/01/2022 6:19 AM CDT): Sever neutropenia with ANC of 0.1, likely secondary to chemotherapy Presents after febrile at home to 102.7. T on arrival of 100.1 ANC of 0.1. CXR with only atelectasis, UA unremarkable. RVP negative No other localizing signs/symptoms of infection Blood cultures pending Continue on empiric cefepime for now Encounters Date Type Department Care Team Description 03/20/2025 Telephone [facility] Oncology [facility] [facility] [address] [place] [address] Liza Porras RN apt cancellation 03/20/2025 Orders Only [facility] Oncology [address] [facility] [address] [place] [address] Liza Porras RN 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 breast in female, estrogen receptor positive (HCC) (Primary Dx) 03/05/2025 Results Follow-Up [facility] Oncology [address] [facility] [address] [place] [address] Devon Cabrera NP Dexa Axial Skeleton Bone Density 1 or 2 Site 02/28/2025 3:10 PM CDT Clinical Support [facility] Bone Health [address] [facility] 5th [place] [address] [place] [address] Postmenopausal (Primary Dx); 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 breast in female, estrogen receptor positive (HCC); group home (current) use of aromatase inhibitors; Encounter for monitoring zoledronic acid therapy 01/29/2025 Telephone [facility] Oncology [address] [place] [address] from Last 3 Months Immunizations Immunization Administration Dates Next Due Influenza, Quadrivalent, Marisol l Culture-based MDCK, Preservative Free, Antibiotic Free, Intramuscular 09/02/2023 Influenza, Quadrivalent, Spl it, Preservative Free, Intramuscular 10/15/2021 Influenza, Trivalent, Cell Culture-based MDCK, Preservative Free, Antibiotic Free, Intramuscular 10/03/2024(Deferred: Other),10/03/2024 Influenza, Unspecified 08/29/2013,08/23/2012 Tdap 03/18/2018 ZOSTER Recombinant 10/08/2018,07/04/2018 Surgical History Surgery Date Site/Laterality Comments BREAST BIOPSY 02/24/2022 Left LAPAROSCOPIC ENDOMETRIOSIS FULGURATION 1991,1992,1995 OTHER SURGICAL HISTORY 11/14/1989 - 11/13/1990 repair tear in anus OTHER SURGICAL HISTORY 11/14/1992 - 11/13/1993 removed cancer under tongue SECTION 11/14/1993 - 11/13/1994 CARPAL TUNNEL RELEASE 11/14/2009 - 11/13/2010 Bilateral BUNIONECTOMY 11/14/2012 - 11/13/2013 CHOLECYSTECTOMY 11/14/2019 - 11/13/2020 BREAST BIOPSY 04/02/2022 Right SECTION 1993 Medical History Medical History Date Comments PONV (postoperative nausea and vomiting) Motion sickness Cancer (HCC) Last chemo Mid O ctober 2021 Hypertension GERD (gastroesophageal reflux disease) Depression Hyperlipidemia Mitral valve prolapse SVT (supraventricular tachycardia) Chest pain Anxiety 1989 Arthritis 2019 Migraines 1981 Family History Medical History Relation Name Comments Cancer Maternal Grandfather Kaleb Throat cancer Maternal Grandfather Kaleb Arthritis Maternal Grandmother khang Clotting disorder Maternal Grandmother khang Melanoma Mother mom Family history of malignant melanoma - (Added by TW Conv) Rashes / Skin problems Mother mom Anesthesia problems Neg Hx Relation Name Status Comments Father Alive Maternal Grandfather Kaleb Maternal Grandmother khang Mother mom Social History Tobacco Use Types Packs/Day Years [...] on file Legal Sex Female 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 Gender Identity Female 03/11/2022 12:06 PM CDT Sexual Orientation Straight 03/11/2022 12 :06 PM CDT Obstetrics History Para Term AB IAB SAB Ectopic Multiple Livin g Live Births 3 2 Date Outcome GA Total Labor Labor/2nd/3rd Weight Sex Type Anes PTL Pamela A1 A5 Name Clin Para Para Last Filed Vital Signs Vital Sign Reading Time Taken Comments Blood Pressure 112/72 12/19/2024 10:22 AM TRAINING FACILITATOR Pulse 71 12/19/2024 10:22 AM TRAINING FACILITATOR Temperature 36.9 C (98.4 F) 12/19/2024 10:22 AM TRAINING FACILITATOR Respiratory Rate 16 12/19/2024 10:22 AM TRAINING FACILITATOR Oxygen Saturation 98% 12/19/2024 10:22 AM TRAINING FACILITATOR Inhaled Oxygen Concentration - - Weight 80.3 kg (177 lb) 12/19/2024 10:22 AM TRAINING FACILITATOR Height 165.1 cm (5' 5 ) 07/26/2024 8:36 AM CDT Body Mass Index 29.45 07/26/2024 8:36 AM CDT Plan of Treatment Health Maintenance Due Date Last Done Comments Cervical Cancer Screening 1960 Colon Cancer Screening-Colonoscopy 1960 Depression Screening 1960 Hepatitis C Screening 1960 Hepatitis B Screening 1979 Regular Well Visit/Exam 18-64 1979 Pneumococcal vaccine <65 (1 of 2 - PCV) 02/04/1980 Covid-19 Vaccine (4 - 2023-2 5 season) 2024 09/14/2021, 2021, 01/13/2021 Breast Cancer Screening-Mammogram 04/30/2025 04/30/2024, 05/25/2023, 08/26/2021, Additional history exists DTaP/Tdap/Td Vaccine (2 - Td or Tdap) 03/18/2028 03/18/2018 Zoster Vaccine Completed 10/08/2018, 07/04/2018 Influenza Vaccine Completed 10/03/2024, , 10/15/2021, Additional history exists Medical Devices Implanted Type Area Mathematical Technician Device Identifier Shelf Expiration Date Model / Serial / Lot Bard [employer]ipheral V[employer] Ultraclip Bard 17ga 10cm 2 Trigger Permanent Ultrasound [id number] - [id number] Implanted:Qty: 1 on 02/24/2022 at [facility] [employer] [id number] / / [employer] Powerport Clearvue Airguard 8fr 1 Lumen Lightweight Intermediate Latex Free [id number] - [id number] Implanted:Qty: 1 on 03/16/2022 by Aft, Ciara Dorsey MD PhD at [facility] Right: Chest [employer] 05/13/2023 [id number] / / [id number] [employer] Ghiatas 20ga 15cm 5cm Beaded Needle Breast Wire Localization [id number] - [id number] Implanted:Qty: 1 on 10/05/2022 at [facility] Left: Breast [employer] [id number] / / Procedures Procedure Name Priority Date/Time Associated Diagnosis Comments DEXA AXIAL SKELETON BONE DENSITY 1 OR MORE SITES Schedule Routine, Read Routine (OP Routine) 02/28/2025 3:38 PM CDT 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 breast in female, estrogen receptor positive (HCC) long term care pharmacist (current) use of aromatase inhibitors DIAGNOSTIC MAMMOGRAM BILATERAL W REESE Schedule Routine, Read Routine (OP Routine) 04/30/2024 1:48 PM CDT 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 breast in female, estrogen receptor positive (HCC) from Last 3 Months or Most Recently Relevant to Health Maintenance Results * Dexa Axial Skeleton Bone Density 1 or 2 Site (02/28/2025 3:38 PM CDT) Anatomical Region Laterality Modality Body N/A Radiographic Rpincess ging Narrative 03/01/2025 8:24 AM CDT Patient Name: Yamileth Sims Date of : 1960 Date of scan: 02/28/2025 Bone mineral density was performed on a HoloCambly Discovery Densitometer. Based on machine cross-calibration and precision studies the least significant changes of this densitometer is 0.024 g/cm2 at the spine, 0.020 g/cm2 at the total proximal femur, and 0.014g/cm2 at the forearm. HISTORY: This is a 65 y.o. postmenopausal female with a history of breast cancer. She reports that she has never smoked. She has never used smokeless tobacco. Currently on treatment with calcium, vitamin D, zoledronic acid (Reclast), and aromatase inhibitor, previously treated with tamoxifen, and current complaint of back pain and leg pain. INDICATIONS: Menopause status, treatment monitoring, and aromatase inhibitor therapy. FINDINGS: BONE MINERAL DENSITY OF THE LUMBAR SPINE Bone Mineral Density (BMD) of the lumbar spine was measured from L1-L4 and the average density was calculated to be 1.225 gm/cm2. This corresponds to a T-score (standard deviations from the mean of young adults) of 1.6. When compared to the previous study of 02/16/2023 there has been a 0.116 gm/cm (10.5%) increase in bone density that is considered significant. BONE MINERAL DENSITY OF THE PROXIMAL FEMUR Bone Mineral Density (BMD) of the left hip total was found to be 1.004 gm/cm2. This corresponds to a T-score standard deviations from the mean of young adults of 0.5. Femoral neck is 0.820 gm/cm2 with a T-score (standard deviations from the mean of young adults) of -0.3. When compared to the previous study of 02/16/2023 there has been a 0.049 gm/cm (5.2%) increase in bone density that is considered significant. SUMMARY: Bone mineral density is near the young adult normal mean with no increased risk for fracture. There has been a significant increase in bone density since previous measurement. ADDITIONAL COMMENTS: Postmenopausal Women and Men Over 50: Diagnostic criteria: Osteoporosis: BMD at or below -2.5 T-score; Osteopenia (low bone mass): BMD between -1.0 and -2.5 T-score. If the patient has a history of a fragility fracture, a fracture that occurred with trauma equivalent to a fall from a standing position or less, then the diagnosis is osteoporosis regardless of bone density. The history and data sections of the bone mineral density scan were prepared by Tisha Batista(Maria Elena) [employer]ik[employer] who is accredited by the International Society of Clinical Densitometry. The overall patient assessment and scan interpretation were performed by Chuyita Horne M.D. who is certified by the International Society of Clinical Densitometry. [id number] us Yasir Gonzalez MD IM DXA PROCEDURE S Final Result * Diagnostic Mammogram Bilateral W Reese (04/30/2024 1:48 PM CDT) Anatomical Region Laterality Modality Breast Bilateral Mammography 04/30/2024 1:54 PM CDT Impressions 04/30/2024 1:54 PM CDT Stable post breast conservation therapy changes within the LEFT breast without mammographic evidence of malignancy in EITHER breast. OVERALL FINAL ASSESSMENT: BI-RADS Category 2: Benign. RECOMMENDATION: 1. Annual diagnostic mammography is recommended. 2. Breast MRI is recommended for supplemental imaging surveillance given personal history of breast cancer and dense breast tissue. Electronically signed by: MD Renetta Owen 04/30/2024 1:54 PM CDT EXAMINATION: BILATERAL DIGITAL DIAGNOSTIC MAMMOGRAM INCLUDING CAD AND BILATERAL DIGITAL BREAST TOMOSYNTHESIS HISTORY: 64-year-old woman with history of LEFT breast invasive ductal carcinoma status post breast conservation therapy in 2021. Prior MRI described LEFT skin thickening which was subsequently biopsied demonstrating changes most consistent with treatment effect. COMPARISON: Multiple priors dating back to 2019, most recent mammogram 05/25/2023 and MRI 11/15/2023 TECHNIQUE: Full field digital mammographic views of BOTH breasts were performed, including computer aided detection (CAD) and BILATERAL digital breast tomosynthesis (DBT). BREAST PARENCHYMAL COMPOSITION: The breasts are extremely dense, which lowers the sensitivity of mammography. MAMMOGRAM FINDINGS: No new suspicious mass, distortion, or calcification within the RIGHT breast. Stable post breast conservation therapy changes within the LEFT breast without new suspicious mass, distortion, or calcification. Procedure Note Wes Mas MD - 04/30/2024 EXAMINATION: BILATERAL DIGITAL DIAGNOSTIC MAMMOGRAM INCLUDING CAD AND BILATERAL DIGITAL BREAST TOMOSYNTHESIS HISTORY: 64-year-old woman with history of LEFT breast invasive ductal carcinoma status post breast conservation therapy in 2021. Prior MRI described LEFT skin thickening which was subsequently biopsied demonstrating changes most consistent with treatment effect. COMPARISON: Multiple priors dating back to 2019, most recent mammogram 05/25/2023 and MRI 11/15/2023 TECHNIQUE: Full field digital mammographic views of BOTH breasts were performed, including computer aided detection (CAD) and BILATERAL digital breast tomosynthesis (DBT). BREAST PARENCHYMAL COMPOSITION: The breasts are extremely dense, which lowers the sensitivity of mammography. MAMMOGRAM FINDINGS: No new suspicious mass, distortion, or calcification within the RIGHT breast. Stable post breast conservation therapy changes within the LEFT breast without new suspicious mass, distortion, or calcification. IMPRESSION: Stable post breast conservation therapy changes within the LEFT breast without mammographic evidence of malignancy in EITHER breast. OVERALL FINAL ASSESSMENT: BI-RADS Category 2: Benign. RECOMMENDATION: 1. Annual diagnostic mammography is recommended. 2. Breast MRI is recommended for supplemental imaging surveillance given personal history of breast cancer and dense breast tissue. Electronically signed by: Wes Mas MD Ciara Martinez MD PhD IMG MAMMO PROCEDURES Final Result from Last 3 Months or Most Recently Relevant to Health Maintenance Insurance [facility] Advance Directives For more information, please contact: [phone] * Full Code (Latest Code Status on File) Date Activated Date Inactivated Comments 05/01/2022 8:25 PM 05/03/2022 7:39 PM Care Teams Supervisor Painting Department Relationship Specialty Start Date End Date Yossi Reaves MD [address] [place] [address] PCP - General Family Practice 09/02/23 Yasir Gonzalez MD [address] [place] [address] Consulting Physician Medical Oncology 03/08/22 Aft, Ciara Dorsey MD PhD [address] [place] [address] Surgeon Surgical Oncology 03/16/22 Monika Bryant MD [address] [place] [address] Radiation Oncologist Radiation Oncology 11/25/22 Yeny Oliveira, PhD [address] [place] [address] Nurse Practitioner Radiation Oncology 02/07/23 Jessenia Vaughn, HAYLEY [address] [place] [address] Nurse Practitioner Nurse Practitioner 09/05/23
--- OUTSIDE RECORDS SUMMARY | 2025-04-01 17:44 | XMS_ITS | Referral Summary ---
Author Organization [facility] Address [address] [place] [address] Care Team Providers Care Accounting Tutor Name Role Phone Yasir Gonzalez MD Unavailable Aft, Ciara Dorsey MD PhD Unavailable Monika Bryant MD Unavailable Yeny Oliveira PhD Unavailable [phone] Yossi Reaves MD Primary Care Provider [phone] Jessenia Vaughn PRINTING PRESSMAN Unavailable [phone] Encounters Date Type Department Care Team Description 03/20/[address] [facility] On[facility] [address] [place] [address] [address] [place] [address] Liza Porras, RN apt cancellation 03/20/[address] [facility] On[facility] [address] [place] [address] 8 [place] [address] Liza Porras, RN 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 breast in female, estrogen receptor positive (HCC) (Primary Dx) 03/05/2025 Results Follow-Up [facility] Oncology [address] [place] [address] 6 [place] [address] Devon Cabrera NP Dexa Axial Skeleton Bone Density 1 or 2 Site 02/28/2025 3:10 PM CDT Clinical Support [facility] [address] [facility] 5th [place] [address] [place] [address] Postmenopausal (Primary Dx); 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 breast in female, estrogen receptor positive (HCC); custodial (current) use of aromatase inhibitors; Encounter for monitoring zoledronic acid therapy 01/29/[address] [facility] On[facility] [address] [place] [address] from Last 3 Months Allergies Active Allergy Reactions Criticality Noted Date [...] simethicone-dip henhydramine-li docaine-nystati n (MAGIC MOUTHWASH) suspension 9-7-2-1Indicati ons:Mouth sores Swish and swallow 10 mL [...] BY MOUTH AT NIGHT 90 capsule 3 11/19/19 25 2024 Discontinued Active Problems Problem Noted Date Diagnosed [...] from 02/24/2022:Stage IIA(cT2, cN0(f), cM0, G3, ER+, CT+, HER2-) - Signed by Ilda Jenkins MD on 11/25/2022 Pathologic stage from 10/05/2022:No Stage Recommended(ypT1a, pN1mi(sn), cM0, GX, ER+, CT+, HER2-) - Signed by Ilda Jenkins MD on 11/25/2022 Overview (03/08/2022): Added automatically from request for surgery [id number] Assessment & Plan (05/03/2022 12:59 PM CDT): [...] pending Continue on empiric cefepime for now Immunizations Immunization Administration Dates Next Due Influenza, Quadrivalent, Marisol l Culture-based MDCK, Preservative Free, Antibiotic Free, Intramuscular 09/02/2023 Influenza, Quadrivalent, Spl it, Preservative Free, Intramuscular 10/15/2021 Influenza, Trivalent, Cell Culture-based MDCK, Preservative Free, Antibiotic Free, Intramuscular 10/03/2024(Deferred: Other),10/03/2024 Influenza, Unspecified 08/29/2013,08/23/2012 Tdap 03/18/2018 ZOSTER Recombinant 10/08/2018,07/04/2018 Social History Tobacco Use Types Packs/Day Years [...] on file Legal Sex Female 2:50 AM PAPER COATING SUPERVISOR Gender Identity Female 03/11/2022 12:06 PM CDT Sexual Orientation Straight 03/11/2022 12 :06 PM CDT Last Filed Vital Signs Vital Sign Reading Time Taken Comments Blood Pressure 112/72 12/19/2024 10:22 AM PAPER COATING SUPERVISOR Pulse 71 12/19/2024 10:22 AM PAPER COATING SUPERVISOR Temperature 36.9 C (98.4 F) 12/19/2024 10:22 AM PAPER COATING SUPERVISOR Respiratory Rate 16 12/19/2024 10:22 AM PAPER COATING SUPERVISOR Oxygen Saturation 98% 12/19/2024 10:22 AM PAPER COATING SUPERVISOR Inhaled Oxygen Concentration - - Weight 80.3 kg (177 lb) 12/19/2024 10:22 AM PAPER COATING SUPERVISOR Height 165.1 cm (5' 5 ) 07/26/2024 8:36 AM CDT Body Mass Index 29.45 07/26/2024 8:36 AM CDT Plan of Treatment Not on file Medical Devices Implanted Type Area Sports Equipment Racker Device Identifier Shelf Expiration Date Model / Serial / Lot Bard Peripheral Vascular Ultraclip Bard 17ga 10cm 2 Trigger Permanent Ultrasound [id number] - [id number] Implanted:Qty: 1 on 02/24/2022 at [facility] Bard Peripheral Vascular [id number] / / Bard Peripheral Vascular Powerport Clearvue Airguard 8fr 1 Lumen Lightweight Intermediate Latex Free [id number] - [id number] Implanted:Qty: 1 on 03/16/2022 by Aft, Ciara Dorsey MD PhD at [facility] Right: Chest Bard Peripheral Vascular 05/13/2023 [id number] / / [id number] Bard Peripheral Vascular Ghiatas 20ga 15cm 5cm Beaded Needle Breast Wire Localization [id number] - [id number] Implanted:Qty: 1 on 10/05/2022 at [facility] Left: Breast Bard Peripheral Vascular [id number] / / Procedures Procedure Name Priority Date/Time Associated Diagnosis Comments DEXA AXIAL SKELETON BONE DENSITY 1 OR MORE SITES Schedule Routine, Read Routine (OP Routine) 02/28/2025 3:38 PM CDT 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 breast in female, estrogen receptor positive (HCC) custodial (current) use of aromatase inhibitors DIAGNOSTIC MAMMOGRAM [...] Anatomical Region Laterality Modality Body N/A Radiographic Princess ging Narrative 03/01/2025 8:24 AM CDT Patient Name: Yamileth Sims Date of : 1960 Date of scan: 02/28/2025 Bone mineral density was performed on a HoloIntigua Discovery Densitometer. Based on machine cross-calibration and [...] mineral density scan were prepared by Tisha Guidry) IVANNA who is accredited by the International Society of Clinical Densitometry. The overall patient assessment and scan interpretation were performed by Chuyita Horne M.D. who is certified by the International Society of Clinical Densitometry. [id number] us Yasir Gonzalez MD IMG DXA PROCEDURE S Final Result * Diagnostic [...] tissue. Electronically signed by: Wes Mas MD Narrative 04/30/2024 1:54 PM CDT EXAMINATION: BILATERAL DIGITAL [...] Most Recently Relevant to Health Maintenance Insurance [facility] Advance Directives For more information, please contact: [phone] * Full Code (Latest Code Status on File) Date Activated Date Inactivated Comments 05/01/2022 8:25 PM 05/03/2022 7:39 PM Care Teams Accounting Tutor Relationship Specialty Start Date End Date Yossi Reaves MD [address] [place] [address] PCP - General Family Practice 09/02/23 Yasir Gonzalez MD [address] [place] [address] Consulting Physician Medical Oncology 03/08/22 Aft, Ciara Dorsey MD PhD [address] [place] [address] Surgeon Surgical Oncology 03/16/22 Monika Bryant MD [address] [place] [address] Radiation Oncologist Radiation Oncology 11/25/22 Yeny Oliveira, PhD [address] [place] [address] Nurse Practitioner Radiation Oncology 02/07/23 Jessenia Vaughn, HAYLEY [address] [place] [address] Nurse Practitioner Nurse Practitioner 09/05/23
--- OUTSIDE RECORDS SUMMARY | 2025-04-01 17:44 | XMS_ITS | Encounter Summary ---
Author Organization [facility] Address [address] [place] [address] Phone Care Team Providers Care Lock Tender Name Role Phone Yasir Gonzalez MD Unavailable AftCiaar MD PhD Unavailable [phone] Monika Bryant MD Unavailable Yeny Oliveira PhD Unavailable [phone] Yossi Reaves MD Primary Care Provider [phone] Jessenia Vaughn VICE PRESIDENT RESEARCH Unavailable [phone] Encounter Details Date Type Department Care Team (Late st Contact Info) Description 03/05/2025 Results Follow-Up [facility] Oncology [address] [facility] Floor 6 [place] [address] Devon Cabrera NP [address] [place] [address] Dexa Axial Skeleton Bone Density 1 or 2 Site Social History Tobacco Use Types Packs/Day Years [...] on file Legal Sex Female 2: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 [address] Surgeon Surgical Oncology 03/16/22 Monika Bryant MD [address] [facility] [address] [place] [address] Radiation Oncologist Radiation Oncology 11/25/22 Yeny Oliveira, PhD [address] [facility] [address] [place] [address] Nurse Practitioner Radiation Oncology 02/07/23 Jessenia Vaughn NP [address] [place] [address] Nurse Practitioner Nurse Practitioner 09/05/23 documented as of this encounter
--- OUTSIDE RECORDS SUMMARY | 2025-04-01 17:44 | XMS_ITS | Encounter Summary ---
Author Organization [facility] Address [address] [place] [address] Phone Care Team Providers Care Turret Lathe Set Up Operator Name Role Phone Giovanni Gutierrez DO Primary Care Provider [phone] Jessenia Vaughn CORE MICROARCHITECT Unavailable [phone] Yasir Gonzalez MD Unavailable Aft, Ciara Dorsey MD PhD Unavailable [phone] Monika Bryant MD Unavailable Nenita Rivera DPT Unavailable Yeny Oliveira PhD Unavailable [phone] Yossi Reaves MD Primary Care Provider [phone] Jessenia Vaughn CORE MICROARCHITECT Unavailable [phone] Encounter Details Date Type Department Care Team (Latest Contact Info) Description 08/20/2022 Orders Only [facility] Scanning, Provider Social History Tobacco Use Types Packs/Day Years Used Date Smoking Tobacco: Never Smokeless Tobacco: Never AUDIT-C Answer Date Recorded Q1: How often do you have a drink containing alcohol? 4 or more times a week 03/16/2022 Q2: How many drinks containi ng alcohol do you have on a typical day when you are drinking? 1 or 2 2 Q3: How often do you have si x or more drinks on one occasion? Never 03/16/2022 Comments No Sex and Gender Information Value Date Recorded Sex Assigned at Not on file Legal Sex Female 2:50 AM TOOTH CUTTER PINION Gender Identity Female 03/11/2022 12:06 PM CDT Sexual Orientation Straight 03/11/2022 12 :06 PM CDT documented as of this encounter Plan of Treatment Not on file documented as of this encounter Procedures Procedure Name Priority Date/Time Associated Diagnosis Comments SCAN - LABS 08/20/2022 documented in this encounter Results * SCAN - LABS (08/20/2022) us Provider Scanning Edited Result - Final documented in this encounter Visit Diagnoses Not on filedocumented in this encounter Care Teams Turret Lathe Set Up Operator Relationship Specialty Start Date End Date Giovanni Gutierrez DO PCP - General Internal Medicine 01/14/22 05/11/23 Yossi Reaves MD [address] [facility] [address] [place] [address] PCP - General Family Practice 09/02/23 Jessenia Vaughn NP Nurse Practitioner Nurse Practitioner 01/14/22 Yasir Villeda MD [address] [place] [address] Consulting Physician Medical Oncology 03/08/22 AftCiara MD PhD [address] [facility] [place] [address] Surgeon Surgical Oncology 03/16/22 Monika Bryant MD [address] [facility] [address] [place] [address] Radiation Oncologist Radiation Oncology 11/25/22 Nenita Rivera DPT [address] [place] [address] Physical Therapist Physical Therapy 12/06/22 01/19/24 Yeny Oliveira, PhD [address] [place] [address] Nurse Practitioner Radiation Oncology 02/07/23 Jessenia Vaughn, HAYLEY [address] [place] [address] Nurse Practitioner Nurse Practitioner 09/05/23 documented as of this encounter
--- OUTSIDE RECORDS SUMMARY | 2025-04-01 17:44 | XMS_ITS ---
Author Organization [facility] Address [address] [place] [address] Care Team Providers Care Mill Recorder Name Role Phone Yasir Gonzalez MD Unavailable Aft, Ciara Dorsey MD PhD Unavailable Monika Bryant MD Unavailable Yeny Oliveira PhD Unavailable [phone] Yossi Reaves MD Primary Care Provider [phone] Jessenia Vaughn DIRECTOR COMMUNITY CENTER Unavailable [phone] Active Problems Problem Noted Date Diagnosed Date [...] from 02/24/2022:Stage IIA(cT2, cN0(f), cM0, G3, ER+, [place]+, HER2-) - Signed by Ilda Jenkins MD on 11/25/2022 Pathologic stage from 10/05/2022:No Stage Recommended(ypT1a, pN1mi(sn), cM0, GX, ER+, [place]+, HER2-) - Signed by Ilda Jenkins MD on 11/25/2022 Overview (03/08/2022): Added automatically from request for surgery [id number] Assessment & Plan (05/03/2022 12:59 PM CDT): [...] team in AM Abnormal MRI, breast 02/24/2022 Current Treatment and Therapy Plans Abemaciclib PO 28 Day Cycles - Breast* Plan Start Date:12/01/2023 Plan Provider:Yasir Gonzalez MD Linked Problems Malignant neoplasm of upper- outer quadrant of left breast in female, estrogen receptor positive (HCC) Treatment Medications Current Day (Day 1 , Cycle 6 - Planned for 08/03/2024) Next Day (Day 1, Cycle 7 - Planned for 08/31/2024) abemaciclib (VERZENIO) No medications scheduled. No medications scheduled. IV MAINTENANCE THERAPY PLAN* Plan Start Date:03/19/2022 Plan Provider:Hari Singer MD PhD Linked Problems Malignant neoplasm of upper- outer quadrant of left breast in female, estrogen receptor positive (HCC) Treatment Medications No medications scheduled. Zoledronic Acid (ZOMETA) Infusion* Plan Start Date:12/16/2023 Plan Provider:Yasir Gonzalez MD Linked Problems Malignant neoplasm of upper- outer quadrant of left breast in female, estrogen receptor positive (HCC) Treatment Medications No medications scheduled. Past Treatment and Therapy Plans Oncology Chemotherapy Treatment Plan Name Start Date Discontinue Date Treatment Medications Discontinue Reason Plan Provider Cycles Dose-Dense AC: DOXOrubicin (ADRIAMYCIN) / Cyclophosphamide followed by: PACLitaxel Weekly x 12 - Breast 2 11/30/2022 cycloPHOSphamide (CYTOXAN)cycloPHOS phamide IVPB in 250 mL (vial 200 mg/mL)([id number])DOXOr ubicin (ADRIAMYCIN)DOXOru bicin (ADRIAMYCIN) 2 mg/mLPACLitaxel (TAXOL)PACLItaxel (TAXOL) 100 mlPACLItaxel (TAXOL) IVPB in 250 mL Therapy Complete Yasir Gonzalez MD 8 of 8 cycles started Radiation Treatments * Course [id number]_202212/30/2022 - 01/26/2023 Treatment Period Energy Fraction Dose Fractions Total Dose Plans Planned L BRS BOOST 01/21/2023 - 01/26/2023 250 4 / 1,000 LT BREAST LNs 12/30/2022 - 01/20/2023 266 16 / 4,256 Reference Points Delivered PTV_BOOST 01/21/2023 - 01/26/2023 1,000 [id number] 12/30/2022 - 01/20/2023 4,256 Lifetime Dose Tracking * Chemical Lifetime Dose Automatic Entry Manual Entr y doxorubicin 237.579 mg/m2 (470.4 mg) 237.579 mg/m2 (470.4 mg) 0 mg/m2 (0 mg) Fluoro Time 0.17 minutes 0.17 minutes 0 minutes cyclophosphamide 2,383.869 mg/m2 (4,720 mg) 2,383.869 mg/m2 (4,720 mg) 0 mg/m2 (0 mg) doxorubicin isotoxic equivalent (Please manually verify calculation) 237.579 mg/m2 (470.4 mg) 237.579 mg/m2 (470.4 mg) 0 mg/m2 (0 mg) Air kerma at the reference point (Ka,r) 1.6 mGy 1.6 mGy 0 mGy DLP 1,326 mGycm 1,326 mGycm 0 mGycm Resolved Problems Problem Noted Date Diagnosed Date [...]
--- OUTSIDE RECORDS SUMMARY | 2025-04-01 17:44 | XMS_ITS | Encounter Summary ---
Author Organization [facility] Address [address] [place] [address] Phone Care Team Providers Care Business Control Specialist Name Role Phone Yasir Gonzalez MD Unavailable Aft, Ciara Dorsey MD PhD Unavailable [phone] Monika Bryant MD Unavailable Yeny Oliveira PhD Unavailable [phone] Yossi Reaves MD Primary Care Provider [phone] Jessenia Vaughn ROVING MARKER Unavailable [phone] Encounter Details Date Type Department Care Team (Latest Contact Info) Description 07/17/2024 Orders Only [facility] Scanning, Provider Social History Tobacco Use Types Packs/Day Years Used Date Smoking Tobacco: Never Cigarettes Smokeless Tobacco: Never AUDIT-C Answer Date Recorded [...] on file Legal Sex Female 2:50 AM HAND PACKER Gender Identity Female 03/11/2022 12:06 PM CDT Sexual Orientation Straight 03/11/2022 12 :06 PM CDT documented as of this encounter Plan of Treatment Not on file documented as of this encounter Procedures Procedure Name Priority Date/Time Associated Diagnosis Comments SCAN - PATHOLOGY 07/17/2024 10:33 AM CDT documented in this encounter Results * SCAN - PATHOLOGY (07/17/2024 10:33 AM CDT) us Provider Scanning Final Result documented in this encounter Visit Diagnoses Not on filedocumented in this encounter Care Teams Business Control Specialist Relationship Specialty Start Date End Date Yossi Reaves MD [address] [facility] [address] [place] [address] PCP - General Family Practice 09/02/23 Yasir Gonzalez MD [address] [place] [address] Consulting Physician Medical Oncology 03/08/22 Aft, Ciara Dorsey MD PhD [address] [place] [address] Surgeon Surgical Oncology 03/16/22 Monika Bryant MD [address] [facility] [address] [place] [address] Radiation Oncologist Radiation Oncology 11/25/22 Yeny Oliveira, PhD [address] [facility] [address] [place] [address] Nurse Practitioner Radiation Oncology 02/07/23 Jessenia Vaughn NP [facility] [place] [address] Nurse Practitioner Nurse Practitioner 09/05/23 documented as of this encounter
--- OUTSIDE RECORDS SUMMARY | 2025-04-01 17:45 | XMS_ITS | Clinical Summary ---
Author Organization [facility] Address [address] 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
--- OUTSIDE RECORDS SUMMARY | 2025-04-01 17:45 | XMS_ITS | Encounter Summary ---
Author Organization [facility] Address [address] [place] [address] Care Team Providers Care Drywall Application Supervisor Name Role Phone Unavailable Primary Care Provider Unavailabl e Encounter Details Date Type Department Care Team (Latest Contact Info) Description 04/16/1999 Outpatient Historical [facility] Dae Lobo Female infertility associated with anovulation (Primary Dx) Social History Tobacco Use Types Packs/Day Years Used Date Smoking Tobacco: Never Assessed Comments Unknown Sex and Gender Information Value Date Recorded Sex Assigned at Not on file Legal Sex Female 4:53 AM ZINC PLATE CUTTER Gender Identity Not on file Sexual Orientation Not on file documented as of this encounter Plan of Treatment Not on file documented as of this encounter Visit Diagnoses Diagnosis 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
--- OUTSIDE RECORDS SUMMARY | 2025-04-01 17:45 | XMS_ITS | Encounter Summary ---
Author Organization [facility] Address [address] [place] [address] Care Team Providers Care Tomb Maker Helper Name Role Phone Unavailable Primary Care Provider Unavailabl e Encounter Details Date Type Department Care Team (Latest Contact Info) Description [address] [facility] Clinton Mota MD NO ADDRESS ON FILE Female infertility of unspecified origin (Primary Dx) Social History Tobacco Use Types Packs/Day Years Used Date Smoking Tobacco: Never Assessed Comments Unknown Sex and Gender Information Value Date Recorded Sex Assigned at Not on file Legal Sex Female 4:53 AM LINE PATROLMAN Gender Identity Not on file Sexual Orientation Not on file documented as of this encounter Plan of Treatment Not on file documented as of this encounter Visit Diagnoses Diagnosis Female infertility of unspecified origin- Primary documented in this encounter
--- OUTSIDE RECORDS SUMMARY | 2025-04-01 17:45 | XMS_ITS | Encounter Summary ---
Author Organization [facility] Address [address] [place] [address] Care Team Providers Care Industrial Aerial Installer Name Role Phone Wei Swan MD Primary Care Provider [phone] Reason for Visit * Diagnostic Imaging (Routine) - Closed Specialty Diagnoses / Procedures Referred By Contac t Referred To Contact Procedures Breast Imaging Screening Outside Reference Aft, Ciara Dorsey MD PhD [address] [place] [address] Phone: tel: fax: Referral ID Status Reason Start Date Expiration Date Visits Re quested Visits Authorized [id number] Closed 01/26/2022 02/25/2023 1 1 Encounter Details Date Type Department Care Team (Late st Contact Info) Description 08/15/2020 Hospital Encounter [facility] [address] [place], [place] [id number] Social History Tobacco Use Types Packs/Day Years [...] on file Legal Sex Female 2:50 AM STADIUM MANAGER Gender Identity Female 03/11/2022 12:06 PM CDT Sexual Orientation Straight 03/11/2022 12 :06 PM CDT documented as of this encounter Functional Status * Audit-C Score Answer Date of Assessment Author 1 [...] only and have not been reviewed by [facility] Radiology. There will be no report generated by a [facility] Radiologist. Narrative [facility]_M[facility]MO[facility] - 01/26/2022 2:57 PM CDT EXAMINATION: Images For Reference Purposes Only us Ciara Martinez MD PhD IMG MAMMO PROCEDURES Final Result [facility] documented in this encounter Visit Diagnoses Not on filedocumented in this encounter Additional Health Concerns Infection Onset Date Last Indicated Resolved Time COVID: Suspected 05/01/2022 05/01/2022 05/01/2022 4:59 AM CDT documented as of this encounter Care Teams Industrial Aerial Installer Relationship Specialty Start Date End Date Wei Swan MD [address] [facility] [address] [place] [address] PCP - General 02/22/13 01/13/22 documented as of this encounter
--- OUTSIDE RECORDS SUMMARY | 2025-04-01 17:45 | XMS_ITS | Encounter Summary ---
Author Organization [facility] Address [address] [place] [address] Care Team Providers Care Customs Entry Writer Name Role Phone Unavailable Primary Care Provider Unavailabl e Encounter Details Date Type Department Care Team (Latest Contact Info) Description 06/08/1999 Outpatient Historical [facility] Clinton Mota MD NO ADDRESS ON FILE Female infertility associated with anovulation (Primary Dx) Social History Tobacco Use Types Packs/Day Years Used Date Smoking Tobacco: Never Assessed Comments Unknown Sex and Gender Information Value Date Recorded Sex Assigned at Not on file Legal Sex Female 4:53 AM WELDER GAS TUNGSTEN ARC Gender Identity Not on file Sexual Orientation Not on file documented as of this encounter Plan of Treatment Not on file documented as of this encounter Visit Diagnoses Diagnosis 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
--- OUTSIDE RECORDS SUMMARY | 2025-04-01 17:45 | XMS_ITS | Encounter Summary ---
Author Organization [facility] Address [address] [place] [address] Care Team Providers Care Rivet Heater Name Role Phone Unavailable Primary Care Provider Unavailabl e Encounter Details Date Type Department Care Team (Latest Contact Info) Description 03/06/2000 Outpatient Historical [facility] Clinton Mota MD NO ADDRESS ON FILE Female infertility of unspecified origin (Primary Dx) Social History Tobacco Use Types Packs/Day Years Used Date Smoking Tobacco: Never Assessed Comments Unknown Sex and Gender Information Value Date Recorded Sex Assigned at Not on file Legal Sex Female 4:53 AM INSULATION SUPERVISOR Gender Identity Not on file Sexual Orientation Not on file documented as of this encounter Plan of Treatment Not on file documented as of this encounter Visit Diagnoses Diagnosis Female infertility of unspecified origin- Primary documented in this encounter
--- OUTSIDE RECORDS SUMMARY | 2025-04-01 17:45 | XMS_ITS | Encounter Summary ---
Author Organization [facility] Address [address] [place] [address] Care Team Providers Care Stove Cleaner Name Role Phone Unavailable Primary Care Provider Unavailabl e Encounter Details Date Type Department Care Team (Latest Contact Info) Description 08/11/1999 Outpatient Historical [facility] Clinton Mota MD NO ADDRESS ON FILE Female infertility associated with anovulation (Primary Dx) Social History Tobacco Use Types Packs/Day Years Used Date Smoking Tobacco: Never Assessed Comments Unknown Sex and Gender Information Value Date Recorded Sex Assigned at Not on file Legal Sex Female 4:53 AM TUBING TESTER Gender Identity Not on file Sexual Orientation Not on file documented as of this encounter Plan of Treatment Not on file documented as of this encounter Visit Diagnoses Diagnosis 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
--- OUTSIDE RECORDS SUMMARY | 2025-04-01 17:45 | XMS_ITS | Encounter Summary ---
Author Organization [facility] Address [address] [place] [address] Care Team Providers Care Slicing Machine Operator/Tender Name Role Phone Wei Swan MD Primary Care Provider [phone] Reason for Visit * Diagnostic Imaging (Routine) - Closed Specialty Diagnoses / Procedures Referred By Contac t Referred To Contact Procedures Breast Imaging US Outside Reference Aft, Ciara Dorsey MD PhD [address] [place] [address] Phone: tel: fax: Referral ID Status Reason Start Date Expiration Date Visits Re quested Visits Authorized [id number] Closed 01/26/2022 02/25/2023 1 1 Encounter Details Date Type Department Care Team (Late st Contact Info) Description 07/25/2017 12:05 AM CDT Hospital Encounter [facility] [address] [place] [id number] Social History Tobacco Use Types Packs/Day [...] on file Legal Sex Female 2:50 AM OIL DEVELOPER Gender Identity Female 03/11/2022 12:06 PM CDT [...] [facility] Radiologist. Narrative [facility] - 01/26/2022 2:59 PM CDT EXAMINATION: Images For Reference Purposes Only us Ciara Martinez MD PhD IMG MAMMO PROCEDURES Final Result [facility] documented in this encounter Visit Diagnoses Not on filedocumented in this encounter Additional Health Concerns Infection Onset Date Last Indicated Resolved Time COVID: Suspected 05/01/2022 05/01/2022 05/01/2022 4:59 AM CDT documented as of this encounter Care Teams Slicing Machine Operator/Tender Relationship Specialty Start Date End Date Wei Swan MD [address] [facility] [address] [facility] [address] [place] [address] PCP - General 02/22/13 01/13/22 documented as of this encounter
--- OUTSIDE RECORDS SUMMARY | 2025-04-01 17:45 | XMS_ITS | Encounter Summary ---
Author Organization [facility] Address 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
--- OUTSIDE RECORDS SUMMARY | 2025-04-01 17:45 | XMS_ITS | Encounter Summary ---
Author Organization [facility] Address [address] [place] [address] Care Team Providers Care Roll Winder Name Role Phone Unavailable Primary Care Provider Unavailabl e Encounter Details Date Type Department Care Team (Latest Contact Info) Description 12/26/1998 Outpatient Historical [facility] D[facility] Lobo Endometriosis of fallopian tube (Primary Dx) Social History Tobacco Use Types Packs/Day Years Used Date Smoking Tobacco: Never Assessed Comments Unknown Sex and Gender Information Value Date Recorded Sex Assigned at Not on file Legal Sex Female 4:53 AM BUSINESS SERVICES ADMINISTRATOR Gender Identity Not on file Sexual Orientation Not on file documented as of this encounter Plan of Treatment Not on file documented as of this encounter Visit Diagnoses Diagnosis Endometriosis of fallopian tube- Primary documented in this encounter
--- OUTSIDE RECORDS SUMMARY | 2025-04-01 17:45 | XMS_ITS | Encounter Summary ---
Author Organization [facility] Healthcare Address [address] [place] [address] Care Team Providers Care Cartographic Technician Name Role Phone Wei Swan MD Primary Care Provider [phone] Reason for Visit * Diagnostic Imaging (Routine) - Closed Specialty Diagnoses / Procedures Referred By Contac t Referred To Contact Procedures Breast Imaging Diagnostic Outside Reference Aft, Ciara Dorsey MD PhD [address] [place] [address] Phone: tel: fax: Referral ID Status Reason Start Date Expiration Date Visits Re quested Visits Authorized [id number] Closed 01/26/2022 02/25/2023 1 1 Encounter Details Date Type Department Care Team (Late st Contact Info) Description 07/25/2017 Hospital Encounter [facility] [address] [place], [place] [id number] Social History Tobacco Use Types Packs/Day Years [...] on file Legal Sex Female 2:50 AM TOBACCO FLAVORER Gender Identity Female 03/11/2022 12:06 PM CDT [...] and have not been reviewed by [facility] Radiology. There will be no report generated by a [facility] Radiologist. Narrative [facility] - 01/26/2022 2:59 PM CDT EXAMINATION: Images For Reference Purposes Only us Ciara Martinez MD PhD IMG MAMMO PROCEDURES Final Result [facility] documented in this encounter Visit Diagnoses Not on filedocumented in this encounter Additional Health Concerns Infection Onset Date Last Indicated Resolved Time COVID: Suspected 05/01/2022 05/01/2022 05/01/2022 4:59 AM CDT documented as of this encounter Care Teams Cartographic Technician Relationship Specialty Start Date End Date Wei Swan MD [address] [facility] [address] [place] [address] PCP - General 02/22/13 01/13/22 documented as of this encounter
--- OUTSIDE RECORDS SUMMARY | 2025-04-01 17:45 | XMS_ITS | Encounter Summary ---
Author Organization [facility] Healthcare Address [address] [place] [address] Care Team Providers Care Cartoon Designer Name Role Phone Wei Swan MD Primary Care Provider [phone] Reason for Visit * Diagnostic Imaging (Routine) - Closed Specialty Diagnoses / Procedures Referred By Contac t Referred To Contact Procedures Breast Imaging Screening Outside Reference Aft, Ciara Dorsey MD PhD [address] [place] [address] Phone: tel: fax: Referral ID Status Reason Start Date Expiration Date Visits Re quested Visits Authorized [id number] Closed 01/26/2022 02/25/2023 1 1 Encounter Details Date Type Department Care Team (Late st Contact Info) Description 07/07/2016 Hospital Encounter [facility] [address] [place], [place] [id number] Social History Tobacco Use Types Packs/Day Years [...] on file Legal Sex Female 2:50 AM EXECUTIVE 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 There will be no report generated by a [facility] Radiologist. Narrative [facility] - 01/26/2022 [...] documented as of this encounter Care Teams Cartoon Designer Relationship Specialty Start Date End Date Wei Swan MD [address] [facility] [address] [place] [address] PCP - General 02/22/13 01/13/22 documented as of this encounter
--- OUTSIDE RECORDS SUMMARY | 2025-04-01 17:45 | XMS_ITS | Encounter Summary ---
Author Organization [facility] Address [address] [place] [address] Care Team Providers Care Refrigerator Room Clerk Name Role Phone Unavailable Primary Care Provider Unavailabl e Encounter Details Date Type Department Care Team (Latest Contact Info) Description 10/14/1999 Outpatient Historical [facility] Clinton Mota MD NO ADDRESS ON FILE Female infertility associated with anovulation (Primary Dx) Social History Tobacco Use Types Packs/Day Years Used Date Smoking Tobacco: Never Assessed Comments Unknown Sex and Gender Information Value Date Recorded Sex Assigned at Not on file Legal Sex Female 4:53 AM HAIR OR BEAUTY SALON MANAGER Gender Identity Not on file Sexual Orientation Not on file documented as of this encounter Plan of Treatment Not on file documented as of this encounter Visit Diagnoses Diagnosis 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
--- OUTSIDE RECORDS SUMMARY | 2025-04-01 17:45 | XMS_ITS | Encounter Summary ---
Author Organization [facility] Address [address] [place] [address] Care Team Providers Care Direct Mail Clerk Name Role Phone Unavailable Primary Care Provider Unavailabl e Encounter Details Date Type Department Care Team (Latest Contact Info) Description 03/18/1999 Outpatient Historical [facility] Clinton Mota MD NO ADDRESS ON FILE Female infertility associated with anovulation (Primary Dx) Social History Tobacco Use Types Packs/Day Years Used Date Smoking Tobacco: Never Assessed Comments Unknown Sex and Gender Information Value Date Recorded Sex Assigned at Not on file Legal Sex Female 4:53 AM EM PHYSICIAN Gender Identity Not on file Sexual Orientation Not on file documented as of this encounter Plan of Treatment Not on file documented as of this encounter Visit Diagnoses Diagnosis 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
--- OUTSIDE RECORDS SUMMARY | 2025-04-01 17:45 | XMS_ITS | Encounter Summary ---
Author Organization [facility] Healthcare Address [address] [place] [address] Care Team Providers Care Machine Engraver Name Role Phone Wei Swan MD Primary Care Provider [phone] Reason for Visit * Diagnostic Imaging (Routine) - Closed Specialty Diagnoses / Procedures Referred By Contac t Referred To Contact Procedures Breast Imaging Screening Outside Reference Aft, Ciara Dorsey MD PhD [address] [place] [address] Phone: tel: fax: Referral ID Status Reason Start Date Expiration Date Visits Re quested Visits Authorized [id number] Closed 01/26/2022 02/25/2023 1 1 Encounter Details Date Type Department Care Team (Late st Contact Info) Description 07/17/2019 Hospital Encounter [facility] [address] [place], [place] [id number] Social History Tobacco Use Types Packs/Day Years [...] on file Legal Sex Female 2:50 AM INFUSION RN Gender Identity Female 03/11/2022 12:06 PM CDT [...] as of this encounter Care Teams Machine Engraver Relationship Specialty Start Date End Date Wei Swan MD [address] [facility] [address] [place] [address] PCP - General 02/22/13 01/13/22 documented as of this encounter
--- OUTSIDE RECORDS SUMMARY | 2025-04-01 17:45 | XMS_ITS | Encounter Summary ---
Author Organization [facility] Address [address] [place] [address] Care Team Providers Care Plastic Surgeon Name Role Phone Unavailable Primary Care Provider Unavailabl e Encounter Details Date Type Department Care Team (Late st Contact Info) Description 12/31/1999 Outpatient Historical [facility] Clinton Mota MD NO ADDRESS ON FILE Investigation and testing for procreation management (Primary Dx) Social History Tobacco Use Types Packs/Day Years Used Date Smoking Tobacco: Never Assessed Comments Unknown Sex and Gender Information Value Date Recorded Sex Assigned at Not on file Legal Sex Female 4:53 AM NUT TAPPER Gender Identity Not on file Sexual Orientation Not on file documented as of this encounter Plan of Treatment Not on file documented as of this encounter Visit Diagnoses Diagnosis Investigation and testing for procreation management- Primary documented in this encounter
--- OUTSIDE RECORDS SUMMARY | 2025-04-01 17:45 | XMS_ITS | Encounter Summary ---
Author Organization [facility] Address [address] [place] [address] Care Team Providers Care Grade Tamper Name Role Phone Unavailable Primary Care Provider Unavailabl e Encounter Details Date Type Department Care Team (Latest Contact Info) Description 12/01/1999 Outpatient Historical [facility] Clinton Mota MD NO ADDRESS ON FILE Female infertility of unspecified origin (Primary Dx) Social History Tobacco Use Types Packs/Day Years Used Date Smoking Tobacco: Never Assessed Comments Unknown Sex and Gender Information Value Date Recorded Sex Assigned at Not on file Legal Sex Female 4:[address]ER Gender Identity Not on file Sexual Orientation Not on file documented as of this encounter Plan of Treatment Not on file documented as of this encounter Visit Diagnoses Diagnosis Female infertility of unspecified origin- Primary documented in this encounter
--- OUTSIDE RECORDS SUMMARY | 2025-04-01 17:45 | XMS_ITS | Encounter Summary ---
Author Organization [facility] Address [address] [place] [address] Care Team Providers Care Care Taker Name Role Phone Unavailable Primary Care Provider Unavailabl e Encounter Details Date Type Department Care Team (Latest Contact Info) Description 02/09/1999 Inpatient Historical [facility] Unspecified symptom associated with female genital organs (Primary Dx) Social History Tobacco Use Types Packs/Day Years Used Date Smoking Tobacco: Never Assessed Comments Unknown Sex and Gender Information Value Date Recorded Sex Assigned at Not on file Legal Sex Female 4:53 AM DEPUTY PROSECUTING ATTORNEY Gender Identity Not on file Sexual Orientation Not on file documented as of this encounter Plan of Treatment Not on file documented as of this encounter Visit Diagnoses Diagnosis Unspecified symptom associated with female genital organs- Primary documented in this encounter
--- OUTSIDE RECORDS SUMMARY | 2025-04-01 17:45 | XMS_ITS | Data Portability ---
Author Organization [facility] Address [address] [place] [address] [place] [address] Care Team Providers Care Media Relations Coordinator Name Role Phone LUCIO SCHRADER Primary Care Provider [phone] Assessment Encounter Date Assessment Date Assessment LastModified by Organization Details LastModified Time 08/10/2022 08/10/2022 Annual gynecological exam performed. Patient will come back in a year unless there are new symptoms. Not available 08/10/2022 14:16:00 08/16/2023 08/16/2023 Annual gynecological exam performed. Patient will come back in a year unless there are new symptoms. [email or web address] Not available 08/16/2023 12:36:51 09/03/2024 09/03/2024 Annual gynecological exam performed. Patient will come back in a year unless there are new symptoms. [email or web address] Not available 09/03/2024 14:47:06 Plan of Treatment Reminders Order Date Submit Date Provider Last Modified By Organization Details Last Modified Time Details Appointments [facility] 2024 01:00P M LENORA HATCH NP Not available Not available Not available Lab urinalysi s, dipstick 2023 024 [facility], [address], [place], [address], 09/03/2024 14:26:45 Referral None recorded. Procedures None recorded. Surgeries None recorded. Imaging MAMMO, diagnosti c, unilatera l 2021 022 JONAS [facility], [address], [place], [address], 01/08/2022 10:06:45 US, breast, unilatera l 2021 oss8 [facility], [address], [place], [address], 03/22/2022 17:18:35 Medication Orders paroxetin e 10 mg tablet [address] [id number], [address] [place], [id number], 08/10/2022 14:20:25 paroxetin e 40 mg tablet [address] [id number], [address] [place], [place], [id number], 08/10/2022 14:20:17 Patient TargetsNo targets recorded. Patient InstructionsNo instructions recorded. Reason for Referral None Reported. Results Created Date Observation Date Name Description Value Unit Range Abnormal Flag Note LastModifiedBy Organization Detail LastModifiedTime 08/10/20 22 08/10/2022 IMAGE GUIDE D PAP AND HPV REGAR DLESS image guided Pap, HPV regardless of Pap result SEE RESULT S BELOW CASE REPOR T: Cytol ogy Gynec ologi latia Repor t Case: [id number] Autho tina santizo Provi sujit: Musa Schultz Colle cted: 08/10 1703 DEATH CLAIM CLERK Order ing Locat ion: [place] [facility] Recei kirstin: 08/11 0742 First Scree n: Bang Carlos, CT Speci men: Scree ja Pap - Image d, Cervi x STATE MENT OF ADEQU ACY: Satis facto ry for evalu ation Trans forma tion zone compo nent canno t be defin itive ly ident ified due to the prese nce of atrop hy or other hormo nal riley es FINAL DIAGN OSIS: Negat jannie for Intra epith elial Lesio n or Ilan qureshi (NIL) . Atrop hic cell hiram rodriguez. Elect ade moe deann d by Bang Carlos, CT on 2021 at 12:54 PM ----- ----- ----- ----- ----- ----- ----- ----- ----- ----- ----- ----- ----- ----- ----- ----- ----- ---- HPV RESUL TS: HPV mRNA E6/E7 : No HPV mRNA Detec desiree NOTE: This high risk HPV mRNA assay detec ts fourt een high- risk HPV types (16, 18, 31, 33, 35, 39, 45, 51, 52, 56, 58, 59, 66, 68) witho ut diffe renti ation . COMME NT: Note: This speci men was revie wed by a Cytot echno logis t and/o r Patho logis t (as indic ated in this repor t) after evalu ation using the Thinp rep Imagi ng Syste m. CLINI LATIA INFOR MATIO N: Menst rual Statu s: LMP (if appli cable ): Clini latia Histo ry/Pr eviou s Pap: Type of Neopl anjelica (if appli cable ): Signi fican t Clini latia Findi ngs: Other Histo ry: Hormo devin (if appli cable ): PAP EDUCA ASIM L NOTE: The Pap Test is a scree ja test with an inher ent false negat jannie rate. Liqui d-bas ed sampl ing may decre ase, but will not elimi delfino, false negat jannie resul ts. A negat jannie resul t does not precl ude the prese nce and/o r devel opmen t of disea se, since the prese nce of abnor mal cells in the sampl e depen ds on the locat ion of the lesio n and sampl ing techn ique. Alison nued regul ar scree ja is the best metho d of cance r preve ntion . If repor desiree cytol ogic findi ng do not corre late with physi latia and/o r histo rical findi ngs, furth er inves tigat ion is recom mikhail d, as clini maureen moore nted. Not Available [facility] [address], [place], [address], 08/17/2022 13:56:46 08/16/20 23 08/16/2023 IMAGE GUIDE D PAP AND HPV REGAR DLESS image guided Pap, HPV regardless of Pap result SEE RESULT S BELOW CASE REPOR T: Cytol ogy Gynec ologi latia Repor t Case: [id number] Autho tina santizo Provi sujit: Musa Schultz Colle cted: 08/16 1400 DEATH CLAIM CLERK Order ing Locat ion: [place] [facility] Recei kirstin: 08/17 0241 First Scree n: Whitley crabtree, Ryan ogden, CT Speci men: Scree ja Pap - Image d, Cervi x STATE MENT OF ADEQU ACY: Satis facto ry for evalu ation Trans forma tion zone compo nent prese nt FINAL DIAGN OSIS: Negat jannie for Intra epith elial Sayda ta or Ilan qureshi (NIL) . Atrop hy prese nt. Elect ade moe deann d by Ryan Remy, CT on 2022 at 3:22 PM ----- ----- ----- ----- ----- ----- ----- ----- ----- ----- ----- ----- ----- ----- ----- ----- ----- ---- HPV RESUL TS: HPV mRNA E6/E7 : No HPV mRNA Detec desiree NOTE: This high risk HPV mRNA assay detec ts fourt een high- risk HPV types (16, 18, 31, 33, 35, 39, 45, 51, 52, 56, 58, 59, 66, 68) witho ut diffe renti ation . COMME NT: This speci men was revie wed by a Cytot echno logis t and/o r Patho logis t (as indic ated in this repor t) after evalu ation using the Thinp rep Imagi ng Syste m. CLINI LATIA INFOR MATIO N: Menst rual Statu s: LMP (if appli cable ): Clini latia Histo ry/Pr eviou s Pap: Type of Neopl anjelica (if appli cable ): Signi fican t Clini latia Findi ngs: Other Histo ry: Hormo devin (if appli cable ): PAP EDUCA ASIM L NOTE: The Pap Test is a scree ja test with an inher ent false negat jannie rate. Liqui d-bas ed sampl ing may decre ase, but will not elimi delfino, false negat jannie resul ts. A negat jannie resul t does not precl ude the prese nce and/o r devel opmen t of disea se, since the prese nce of abnor mal cells in the sampl e depen ds on the locat ion of the lesio n and sampl ing techn ique. Alison nued regul ar scree ja is the best metho d of cance r preve ntion . If repor desiree cytol ogic findi ng do not corre late with physi latia and/o r histo rical findi ngs, furth er inves tigat ion is recom mikhail d, as clini maureen moore nted. Not Available [facility] ([facility]) [address], [place], [address], 08/18/2023 16:24:50 09/03/20 24 09/03/2024 urina lysis , dipst ick Leukocytes - Not Available [facility] [address], [place], [address], 09/03/2024 14:24:36 09/03/20 24 09/03/2024 urina lysis , dipst ick Nitrite - Not Available [place] [address], [place], [address], 09/03/2024 14:24:36 09/03/20 24 09/03/2024 urina lysis , dipst ick Urobilinogen - Not Available [facility] [address], [place], [address], 09/03/2024 14:24:36 09/03/20 24 09/03/2024 urina lysis , dipst ick Protein - Not Available [facility] [address], [place], [address], 09/03/2024 14:24:36 09/03/2009/03/2024 urina lysis , dipst ick pH 5 Not Available [facility] [address], [place], [address], 09/03/2024 14:24:36 09/03/20 24 09/03/2024 urina lysis , dipst ick Specific [place] 1.020 Not Available [facility] [address], [place], [address], 09/03/2024 14:24:36 09/03/2009/03/2024 urina lysis , dipst ick Ketone - Not Available [facility] [address], [place], [address], 09/03/2024 14:24:36 09/03/2009/03/2024 urina lysis , dipst ick Bilirubin - Not Available [facility] shmuel [address], [place], [address], 09/03/2024 14:24:36 09/03/2009/03/2024 urina lysis , dipst ick Glucose - Not Available [facility] [address], [place], [address], 09/03/2024 14:24:36 09/03/20 24 09/03/2024 urina lysis , dipst ick Appearance clear Not Available [facility] [address], [place], [address], 09/03/2024 14:24:36 09/03/20 24 09/03/2024 urina lysis , dipst ick Color Dark yellow Not Available [facility] [address], [place], [address], 09/03/2024 14:24:36 01/08/20 22 MAMMO , diagn ostic , unila teral No observ ation record ed. [facility] [address], [place], [address], 01/15/2022 13:02:25 Result Notes None recorded. Problems Name Problem SNOMED Code Status Onset Date Resolution Date Notes Provider Name and Address Organization Details Recorded Time Pelvic and perineal pain 698404660 Completed 201707/21/2021 Pelvic and perineal pain;Rec orded Elsewher e: No Locat ion: Christine [facility] S ource: EHR Pacu Nurse iva: N Sohanti ce ID: 0001 Román lable Time: 03:30:00 PM Miranda song [facility] 10:59:53 Polyp of cervix [id number] Completed 201707/21/2021 Polyp of cervix uteri;Re corded Elsewher e: No Locat ion: [facility] S ource: EHR Pacu Nurse iva: N Practi ce ID: 0001 Román lable Time: 11:00:00 AM Miranda song [facility] 10:59:55 Menopaus e present [id number] Completed 201707/21/2021 Symptoms such as flushing , sleeples sness, headache , lack of concentr ation, associat ed with natural (age-rel ated) menopaus e;Record ed Elsewher e: No [facility]: [facility] Pacu Nurse iva: N Practi ce ID: 0001 Román lable Time: 11:00:00 AM Miranda Toledo duncan, [facility] 10:59:28 Screenin g for malignan t neoplasm of rectum Completed 201407/21/2021 Screenin g for malignan t neoplasm s of the rectum;R ecorded Elsewher e: No Locat ion: [facility] S ource: EHR Pacu Nurse iva: N Practi ce ID: 0001 Román lable Time: 11:00:00 AM Miranda Paris duncan, [facility] 11:00:15 Speciali zed medical examinat ion Completed 201207/21/2021 Gynecolo gical Examinat ion;Murtaza rded Elsewher e: No Locat ion: [facility] Practi ce ID: 0001 Román lable Time: 11:00:00 AM Miranda Paris duncan, [facility] 11:00:26 Leukocyt osis [id number] Completed 201407/21/2021 LEUKOCYT OSIS NOS;Prac edgardo ID: 0001 Miranda Paris duncan, [facility] 10:59:26 Microsco pic hematuri a [id number] Completed 201407/21/2021 MICROSCO PIC HEMATURI A;Practi ce ID: 0001 Miranda song, [facility] 10:59:30 Adult health examinat ion Completed 201407/21/2021 Routine general medical examinat ion at a health care facility ;Practic e ID: 0001 Miranda song, [facility] 10:41:46 Screenin g for malignan t neoplasm of cervix Completed 201407/21/2021 SCREEN MAL NEOP-CER VIX;Prac edgardo ID: 0001 Miranda song, [facility] 1 11:00:09 Urinary tract infectio us disease [id number] Completed 201507/21/2021 Urinary tract infectio n, site not specifie d;Practi ce ID: 0001 Miranda song, [facility] 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 11:00:24 Removal of intraute rine device Completed 201507/21/2021 Encounte r for removal of intraute rine contrace ptive device;P ractice ID: 0001 Miranda Toledo [facility] 11:00:[address] Concept Completed 201607/21/2021 Encntr for general adult medical exam w/o abnormal findings ;Practic e ID: 0001 Miranda Toledo [facility] 11:00:19 Insertio n of intraute rine contrace ptive device Completed 201107/21/2021 INSERTIO N OF IUD;Murtaza rded Elsewher e: No Locat ion: [facility] S ource: EHR Pacu Nurse iva: N Practi ce ID: 0001 Román lable Time: 11:45:00 AM Miranda Toledo [facility] 1 10:59:21 Mucous polyp of cervix [id number] Completed 201207/21/2021 Mucous polyp of cervix;R ecorded Elsewher e: No Locat ion: [facility] S ource: EHR Pacu Nurse iva: N Practi ce ID: 0001 Román lable Time: 11:00:00 AM Miranda Toledo [facility] 1 10:59:46 Pregnanc y test negative [id number] Completed 201107/21/2021 Pregnanc y examinat ion or test, negative result;R ecorded Elsewher e: No Locat ion: [facility] S ource: EHR Pacu Nurse iva: N Practi ce ID: 0001 Román lable Time: 11:45:00 AM Miranda Toledo [facility] 1 10:59:58 Evaluati on finding Completed 201807/21/2021 Hematuri a, unspecif ied;Murtaza rded Elsewher e: No Locat ion: [facility]: N Practi ce ID: 0001 Román lable Time: 08:26:20 AM Miranda Toledo [facility] 1 10:58:50 Dysfunct ional uterine bleeding Completed 201107/21/2021 Other disorder s of menstrua tion and other abnormal bleeding from female genital tract;Re corded Elsewher e: No Locat ion: [facility]: N Practi ce ID: 0001 Román lable Time: 04:30:00 PM Miranda song [facility] 1 10:58:46 Evaluati on finding [id number] Completed 201607/21/2021 Oth abn and inconclu sive findings on dx imaging of breast;R ecorded Elsewher e: No Locat ion: [facility] S ource: EHR Pacu Nurse iva: N Practi ce ID: 0001 Román lable Time: 10:36:46 AM Miranda song [facility] 1 10:41:52 Proteinu herman [id number] Completed 201007/21/2021 Proteinu herman;Prac edgardo ID: 0001 Miranda song [facility] 11:00:02 Uterovag inal prolapse [id number] Completed 201007/21/2021 Uterovag inal prolapse , unspecif ied;Prac edgardo ID: 0001 Miranda Toledo duncan, [facility] 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 10:59:49 Incomple te uterovag inal prolapse [id number] Completed 201007/21/2021 Uterovag inal prolapse , incomple te;Pract ice ID: 0001 Miranda Toledo [facility] 10:59:15 Cyst of ovary [id number] Completed 201007/21/2021 OVARIAN CYST;Pra ctice ID: 0001 Miranda Toledo [facility], [facility] 10:49:09 Blood in urine [id number] Completed 201407/21/2021 HEMATURI A NOS;Murtaza rded Elsewher e: No Locat ion: Christine mi [facility] S ource: EHR Pacu Nurse iva: N Practi ce ID: 0001 Román lable Time: 10:11:05 AM Miranda Toledojamaal song [facility] 10:41:49 Problem Notes None recorded. Procedures Surgical History Date Name Laterality Status Provider Name and Address Organization Details Recorded Time 024 Date of Last Mammogram completed [facility] 09/03/2024 14:13:02 023 Date of Last Pap Smear completed [facility] 09/03/2024 14:12:05 023 Most Recent Bone Density completed Gisel Snowden [facility] 08/16/2023 12:39:48 021 completed [facility] 11/17/2021 15:52:53 021 Date of Last Colonoscopy completed [facility] 11/17/2021 15:52:53 020 cholecystectomy completed Jessenia Vaughn [facility], [place], [address], [facility] 07/14/2020 13:04:07 018 cervical biopsy completed [facility] 11/17/2021 15:58:27 016 excision of bunion completed [facility] 07/21/2021 19:03:18 013 cervical polypectomy completed [facility] 07/21/2021 19:10:40 010 Carpal tunnel surgery completed [facility] 07/14/2020 10:54:58 997 Laparoscopy completed [facility] 07/21/2021 19:04:04 994 delivery completed [facility] 07/14/2020 10:55:31 993 Laparoscopy completed [facility] 07/21/2021 19:03:53 993 laparotomy completed [facility] 07/14/2020 10:54:48 985 Tonsillectomy completed [facility] 07/14/2020 10:54:31 Imaging Results Imaging Date Name Status LastModified by Organiz ation Details LastModified Time 01/08/2022 MAMMO, diagnostic, unilateral completed [facility] [address], [place], [address], 01/15/2022 13:02:25 Procedure Notes None recorded. Medical Equipment None Reported. Allergies Allergen ID Allergen Name Allergen Category Reaction Reaction Severity Criticality Documentation Date Start Date Code Code System Note Provider Name and Address Organization Details Recorded Time 96361 adhesive environme nt,medica tion rash severe Not available 11/17/2021 86818 UNK Kierra Brandon [facility], [facility] 2 15:52:45 1883 Product containin g penicilli n (product) medicatio n rash severe Not available 07/14/2020 58617 8001 SNOMED Darling Juarez [facility] 0 10:54:05 Medications Name Sig Start Date Stop Date Status Note LastModified by Organization Details LastModified Time Prescript ion - Renewal 07/21 completed Not Available Not Available Not Available nystatin 100,000 unit/ml susp 09/03 completed Not Available Not Available Not Available cyclobenz aprine 10 mg tablet TK 1 T PO QHS PRF MUSCLE SPASM 07/21 completed Not Available Not Available Not Available anastrozo le 1 mg tablet TAKE 1 TABLET BY MOUTH EVERY DAY active Not Available Not Available No t Available nystatin 100,000 unit/mL oral suspensio n 08/16 completed Not Available Not Available Not Available doxycycli ne hyclate 100 mg capsule TAKE 1 CAPSULE BY MOUTH TWICE DAILY FOR 10 DAYS 11/02 completed Not Available Not Available Not Available paroxetin e 10 mg tablet TAKE 1 TABLET BY MOUTH EVERY DAY 08/10 completed Not Available Not Available Not Available clindamyc in HCl 300 mg capsule take 1 capsule by oral route every 12 hours 07/05 completed Prescrib ed Elsewher e: No Locat ion: [facility] M odify By: kobe brown DateTime : 07/02/20 15 09:21:07 AM Not Available Not Available Not Available Coreg 3.125 mg tablet take 1 tablet by oral route 2 times every day with food 07/21 completed Prescrib ed Elsewher e: Yes Loca tion: [facility] odify By: doreen Malagon r DateTime : 02/20/20 12 09:56:27 PM Not Available Not Available Not Available Daily Vitamin tablet take 1 tablet by oral route every day with food 2011 active Prescrib ed Elsewher e: No Locat ion: [facility] odify By: elijah Malagon r DateTime : 02/21/20 12 04:30:00 PM Not Available Not Available Not Available pravastat in 40 mg tablet TAKE 1 TABLET BY MOUTH DAILY active Not Available Not Available No t Available cephalexi n 250 mg capsule 08/10 completed Not Available Not Available Not Available ondansetr on HCl 8 mg tablet TAKE 1 TABLET BY MOUTH EVERY 8 HOURS NEEDED FOR NAUSEA AND VOMITING active Not Available Not Available No t Available fluconazo le 200 mg tablet TAKE 2 TABLETS BY MOUTH DAILY FOR 21 DAYS 08/16 completed Not Available Not Available Not Available vitamin E 100 unit capsule 07/09 completed Prescrib ed Elsewher e: Yes Loca tion: [facility] odify By: aguila Malagon r DateTime : 06/04/20 14 11:30:00 AM Not Available Not Available Not Available ondansetr on HCl 4 mg tablet TK 1 T PO Q 8 H PRF NAUSEA OR VOM 07/21 completed Not Available Not Available Not Available Paxil 10 mg/5 mL oral suspensio n take 10 millilit er by oral route every day 07/09 completed Prescrib ed Elsewher e: Yes Loca tion: [facility] odify By: julio cesarhar tz Encou nter DateTime : 07/09/20 19 08:26:20 AM Not Available Not Available Not Available dextroamp hetamine- amphetami ne 10 mg tablet TAKE 1 TABLET BY MOUTH TWICE DAILY 08/16 completed Not Available Not Available Not Available pimecroli mus 1 % topical cream APPLY TO RASH AREAS ON FACE TWICE DAILY 08/16 completed Not Available Not Available Not Available prochlorp erazine maleate 10 mg tablet active Not Available Not Available Not Available omeprazol e 40 mg capsule,d elayed release TAKE 1 CAPSULE BY MOUTH DAILY FOR 8 WEEKS 08/22 completed Not Available Not Available Not Available tramadol 50 mg tablet 09/03 completed Not Available Not Available Not Available lidocaine -prilocai ne 2.5 %-2.5 % topical cream APPLY TO PORT SITE AND COVER 1 HOUR PRIOR TO APPOINTM ENT 08/10 completed Not Available Not Available Not Available dextroamp hetamine- amphetami ne 30 mg tablet 11/02 completed Not Available Not Available Not Available oxycodone -acetamin ophen 5 mg-325 mg tablet 08/16 completed Not Available Not Available Not Available hydrocort isone 2.5 % topical cream with perineal applicato r INSERT RECTALLY DIRECTED TWICE DAILY 08/10 completed Not Available Not Available Not Available alprazola m 0.25 mg tablet active Not Available Not Available Not Available Metrogel Vaginal 0.75 % (37.5 mg/5 gram) insert 1 applicat orful by vaginal route for 5 nights at bedtime 07/05 completed Prescrib ed Elsewher e: No Locat ion: [facility] odify By: kobe brown DateTime : 06/30/20 16 10:42:35 AM Not Available Not Available Not Available prednisol one acetate 1 % eye drops,jessica pension 08/10 completed Not Available Not Available Not Available pravastat in 10 mg tablet take 1 tablet by oral route every day 11/02 completed Prescrib ed Elsewher e: Yes Loca tion: [facility] odify By: kobe brown DateTime : 07/05/20 18 01:30:00 PM Not Available Not Available Not Available Depo-Prov era 150 mg/mL intramusc ular suspensio n inject 1 millilit er (150MG) by intramus cular route every 3 months 06/14 completed Prescrib ed Elsewher e: No Locat ion: [facility] odify By: justus brown DateTime : 05/25/20 12 01:30:00 PM Not Available Not Available Not Available trazodone 100 mg tablet TAKE 2 TABLETS BY MOUTH AT BEDTIME active Not Available Not Available No t Available dicyclomi ne 20 mg tablet active Not Available Not Available Not Available cephalexi n 500 mg capsule 08/10 completed Not Available Not Available Not Available paroxetin e 20 mg tablet TAKE 1 TABLET BY MOUTH DAILY 09/03 completed Not Available Not Available Not Available trazodone 150 mg tablet take 1 tablet by oral route every day at bedtime 11/02 completed Prescrib ed Elsewher e: Yes Loca tion: [facility] odify By: doreen beltran DateTime : 02/20/20 12 09:56:27 PM Not Available Not Available Not Available Cipro 500 mg tablet take 1 tablet by oral route every 12 hours 07/05 completed Prescrib ed Elsewher e: No Locat ion: [facility] odify By: kobe brown DateTime : 06/23/20 15 11:00:00 AM Not Available Not Available Not Available nystatin 100,000 unit/gram topical cream APPLY TOPICALL Y TO THE AFFECTED AREA TWICE DAILY UNTIL RESOLVED active Not Available Not Available No t Available dexametha sone 4 mg tablet 08/10 completed Not Available Not Available Not Available dextroamp hetamine- amphetami ne 15 mg tablet TAKE 1 TABLET BY MOUTH TWICE DAILY 4 TO 6 HOURS APART 09/03 completed Not Available Not Available Not Available Glucosami ne 500 mg tablet 08/16 completed Prescrib ed Elsewher e: Yes Loca tion: [facility] odify By: elijah Malagon r DateTime : 02/21/20 12 04:30:00 PM Not Available Not Available Not Available docusate sodium 100 mg capsule TAKE 1 CAPSULE BY MOUTH 2 TIMES A DAY NEEDED FOR CONSTIPA TION active Not Available Not Available No t Available gabapenti n 300 mg capsule TAKE 1 CAPSULE BY MOUTH EVERY MORNING AND 2 CAPSULES BY MOUTH AT NIGHT active Not Available Not Available No t Available omeprazol e 20 mg capsule,d elayed release TAKE 1 CAPSULE BY MOUTH DAILY active Not Available Not Available No t Available hydroxyzi ne HCl 25 mg tablet 09/03 completed Not Available Not Available Not Available lotepredn ol etabonate 0.5 % eye drops,jessica pension 08/16 completed Not Available Not Available Not Available scopolami ne 1 mg over 3 days transderm al patch APPLY 1 PATCH TOPICALL Y TO THE SKIN EVERY 3 DAYS NEEDED FOR MOTION SICKNESS active Not Available Not Available No t Available paroxetin e 40 mg tablet TAKE 1 TABLET BY MOUTH DAILY WITH 10MG TABLET FOR TOTAL OF 50MG DAILY 08/10 completed Not Available Not Available Not Available doxycycli ne hyclate 20 mg tablet TAKE 1 TABLET BY MOUTH TWICE DAILY 08/16 completed Not Available Not Available Not Available ondansetr on 4 mg disintegr ating tablet 08/10 completed Not Available Not Available Not Available cefdinir 300 mg capsule TAKE 1 CAPSULE BY MOUTH EVERY 12 HOURS 08/10 completed Not Available Not Available Not Available fluticaso ne propionat e 50 mcg/actua tion nasal spray,jessica pension SHAKE LIQUID AND USE 2 SPRAYS IN EACH NOSTRIL DAILY 08/16 completed Not Available Not Available Not Available dextroamp hetamine- amphetami ne 5 mg tablet TAKE 1 TABLET BY MOUTH DAILY AT 3 PM 08/16 completed Not Available Not Available Not Available oxycodone 5 mg tablet 08/10 completed Not Available Not Available Not Available clindamyc in 1 % lotion APPLY TO RASH AREAS ON FACE TWO TIMES A DAY 08/16 completed Not Available Not Available Not Available Bactrim DS 800 mg-160 mg tablet take 1 tablet by oral route every 12 hours 07/05 completed Prescrib ed Elsewher e: No Locat ion: [facility] odify By: kobe denger DateTime : 06/28/20 16 08:15:00 AM Not Available Not Available Not Available iron ER 325 mg (65 mg iron) capsule,e xtended release take 1 Tablet by Oral route 3 times every day 05/25 completed Prescrib ed Elsewher e: Yes Loca tion: [facility] odify By: agapito nielson DateTime : 02/21/20 12 04:30:00 PM Not Available Not Available Not Available nitrofura ntoin monohydra te/macroc rystals 100 mg capsule 10/03 /2023 completed Not Available Not Available Not Available duloxetin e 30 mg capsule,d elayed release 08/22 completed Not Available Not Available Not Available duloxetin e 60 mg capsule,d elayed release TAKE 1 CAPSULE BY MOUTH DAILY active Not Available Not Available No t Available Calcio Suhail 500 mg tablet 07/05 completed Prescrib ed Elsewher e: Yes Loca tion: [facility] odify By: kobe pateluntvon DateTime : 06/04/20 14 11:30:00 AM Not Available Not Available Not Available docusate sodium 09/03 completed Not Available Not Available Not Available Coreg 07/21 completed Not Available Not Available Not Available dicyclomi ne 09/03 completed [id number]|2025-04-01 17:44:00|2025-04-01 17:44:00|XMS_ITS|BKG DAZOHRAON|External Medical Summaries|[id number]|" Clinical Summary Created on: April 01, 2025 Yamileth Guevara : 1960 Sex: Female Author Organization [facility] Address [address] [place] [address] Care Team Providers Care Media Relations Coordinator Name Role Phone Wei Swan MD Primary Care Provider [phone] Source Comments [facility],non-owned Affiliates and Associated Physician Practices is amultiple site organization consisting of ambulatory clinics and hospital sitesin [place], [place], [place] and [place]. This disclosure is being madepursuant to the Care Everywhere program and may not contain all information available regarding this patient. Last updated 18.[facility] Allergies Active Allergy Reactions Criticality Noted Date Comments Penicillins Rash Medium 07/05/2017 Medications * Be aware that medications may not be up to date on this document. Alwaysverify current medications with the patient. glucosamine 500 MG capsule Take by mouth. 07/05/2017 Active pravastatin (PRAVACHOL) 20 MG tablet 2 05/30/2017 Active traZODone (DESYREL) 100 MG tablet 0 05/11/2017 Active carvedilol CR 24hr (COREG CR) 20 MG capsule 0 05/12/2017 Activ e Biotin 1 MG Take by mouth. 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 Gender Identity Not on file Sexual Orientation Not on file Last Filed Vital Signs Vital Sign Reading Time Taken Comments Blood Pressure 101/74 07/05/2017 3:00 PM CDT Pulse 72 07/05/2017 3:00 PM CDT Temperature - - Respiratory Rate - - Oxygen Saturation 98% 07/05/2017 3:00 PM CDT Inhaled Oxygen Concentration - - Weight 59.4 kg (131 lb) 07/05/2017 3:00 PM CDT Height 165.1 cm (5' 5 ) 07/05/2017 3:00 PM CDT Body Mass Index 21.8 07/05/2017 3:00 PM CDT Plan of Treatment Health Maintenance Due Date Last Done Comments COLOGUARD (AGES 45-75) - COL ON CA SCREENING 1960 COLON MONITORING 1960 COLONOSCOPY - COLON CA SCREENING 1960 CT COLONOGRAPHY - COLON CA SCREENING 1960 Colorectal Cancer Screening 1960 FIT - COLON CA SCREENING 1960 FLEX SIG - COLON CA SCREENING 1960 MAMMOGRAM 1960 HIV SCREENING 02/04/1976 HEPATITIS C SCREENING 01/30/1979 DTAP/TDAP/TD VACCINES (1 - Tdap) 02/04/1980 PNEUMOCOCCAL VACCINE 50+ (1 of 1 - PCV) 2011 ZOSTER VACCINE (1 of 2) 2011 COVID-19 VACCINE (1 - 2023-2 5 season) 2024 DEPRESSION SCREENING 11/14/2024 INFLUENZA VACCINE (Season Ended) 2025 Respiratory Syncytial Virus (RSV) Vaccine Pt: or over 60 yrs (1 - 1-dose 75+ series) 02/04/2036 HEPATITIS B VACCINE Aged Out No longe r eligible based on patient's age to complete this topic HIB VACCINE Aged Out No longer eligi ble based on patient's age to complete this topic HPV VACCINE Aged Out No longer eligi ble based on patient's age to complete this topic MENINGOCOCCAL (Group B) VACC INE SHARED DECISION-MAKING Aged Out No longer eligibl e based on patient's age to complete this topic MENINGOCOCCAL GROUPS A/C/Y/W VACCINE Aged Out No longer eligible b ased on patient's age to complete this topic Insurance [employer] Care Teams Media Relations Coordinator Relationship Specialty Start Date End Date Wei Swan MD [address] [place] [address] PCP - General 06/28/17 "
--- OUTSIDE RECORDS SUMMARY | 2025-04-01 17:45 | XMS_ITS | Encounter Summary ---
Author Organization [facility] Address [address] [place] [address] Care Team Providers Care Food Service Order Clerk Name Role Phone Unavailable Primary Care Provider Unavailabl e Encounter Details Date Type Department Care Team (Latest Contact Info) Description 09/12/1999 Outpatient Historical [facility] Clinton Mota MD NO ADDRESS ON FILE Female infertility associated with anovulation (Primary Dx) Social History Tobacco Use Types Packs/Day Years Used Date Smoking Tobacco: Never Assessed Comments Unknown Sex and Gender Information Value Date Recorded Sex Assigned at Not on file Legal Sex Female 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
--- OUTSIDE RECORDS SUMMARY | 2025-04-01 17:45 | XMS_ITS | Encounter Summary ---
Author Organization [facility] Address [address] [place] [address] Care Team Providers Care Sorting Machine Attendant Name Role Phone Wei Swan MD Primary Care Provider [phone] Reason for Visit * Diagnostic Imaging (Routine) - Closed Specialty Diagnoses / Procedures Referred By Contac t Referred To Contact Procedures Breast Imaging Screening Outside Reference Aft, Ciara Dorsey MD PhD [address] [place] [address] Phone: tel: fax: Referral ID Status Reason Start Date Expiration Date Visits Re quested Visits Authorized [id number] Closed 01/26/2022 02/25/2023 1 1 Encounter Details Date Type Department Care Team (Late st Contact Info) Description 07/14/2018 Hospital Encounter [facility] [address] [place], [place] [id number] Social History Tobacco Use Types Packs/Day Years [...] on file Legal Sex Female 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 There will be no report generated by a [facility] Radiologist. Narrative [facility] - 01/26/2022 2:57 PM CDT EXAMINATION: Images For Reference Purposes Only us Ciara Martinez MD PhD IMG MAMMO PROCEDURES Final Result [facility] documented in this encounter Visit Diagnoses Not on filedocumented in this encounter Additional Health Concerns Infection Onset Date Last Indicated Resolved Time COVID: Suspected 05/01/2022 05/01/2022 05/01/2022 4:59 AM CDT documented as of this encounter Care Teams Sorting Machine Attendant Relationship Specialty Start Date End Date Wei Swan MD [address] [facility] [address] [place] [address] PCP - General 02/22/13 01/13/22 documented as of this encounter
--- OUTSIDE RECORDS SUMMARY | 2025-04-01 17:45 | XMS_ITS | Encounter Summary ---
Author Organization [facility] Address 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
--- OUTSIDE RECORDS SUMMARY | 2025-04-01 17:45 | XMS_ITS | Encounter Summary ---
Author Organization [facility] Healthcare Address [address] [place] [address] Care Team Providers Care Commercial Announcer Name Role Phone Wei Swan MD Primary Care Provider [phone] Reason for Visit * Diagnostic Imaging (Routine) - Closed Specialty Diagnoses / Procedures Referred By Contac t Referred To Contact Procedures Breast Imaging Screening Outside Reference Aft, Ciara Dorsey MD PhD [address] [place] [address] Phone: tel: fax: Referral ID Status Reason Start Date Expiration Date Visits Re quested Visits Authorized [id number] Closed 01/26/2022 02/25/2023 1 1 Encounter Details Date Type Department Care Team (Late st Contact Info) Description 07/11/2017 Hospital Encounter [facility] [address] [place], [place] [id number] Social History Tobacco Use Types Packs/Day Years [...] on file 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 There will be no report generated by a [facility] Radiologist. Narrative [facility] - 01/26/2022 2:58 PM CDT EXAMINATION: Images For Reference Purposes Only us Ciara Martinez MD PhD IMG MAMMO PROCEDURES Final Result [facility] documented in this encounter Visit Diagnoses Not on filedocumented in this encounter Additional Health Concerns Infection Onset Date Last Indicated Resolved Time COVID: Suspected 05/01/2022 05/01/2022 05/01/2022 4:59 AM CDT documented as of this encounter Care Teams Commercial Announcer Relationship Specialty Start Date End Date Wei Swan MD [address] [facility] [address] [place] [address] PCP - General 02/22/13 01/13/22 documented as of this encounter
== END 2025-04-01 17:41 | disposition home or self-care (01) ==
PROVIDERS: PCP Nurse Practitioner Family; Visit Provider Chiropractor Rehabilitation
DX: M25.531 Pain in right wrist (principal)
CPT/HCPCS: 73110

== ENCOUNTER 2025-04-02 08:34 | Emergency (ER) | payer OTHER, SELFPAY ==
[2025-04-02] VITALS (31 sets, daily range): BP systolic 79–123; BP diastolic 50–73; PULSE 77–96; RESP 12–18; TEMP 36.6; O2SAT 87–100
--- NOTE | ~2025-04-02 | CT_ITS ---
EXAMINATION: CT brain wo con DATE: 04/02/2025 10:41 INDICATION: Headache TECHNIQUE: Computed tomography (CT) of the head was performed without intravenous contrast. Sagittal and coronal reconstructions were performed. The mA was adjusted according to patient size. Iterative reconstruction technique was employed. The dose-length product was 605.33 mGy-cm. COMPARISON: None FINDINGS: No acute intracranial hemorrhage, acute infarction or abnormal extra axial fluid collection. There is some contrast within the arteries and venous sinuses related to a contrast-enhanced CT of the abdome n and pelvis performed one hour prior. Ventricles are normal and symmetric. No mass/mass effect. Ther e is an :empty sella with the pituitary flattened along the floor of the sella with concave cephalad pituitary margin. The orbits and paranasal sinuses are normal. Small right mastoid effusion. IMPRESSION: 1. No acute intracranial process. 2. 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 Reviewed, dictated and finalized at location A. IMPRESSION: 1. No acute intracranial process. 2. Empty sella with pituitary flattened along the floor of the sella which ca n be seen in the setting of idiopathic intracranial hypertension.
--- NOTE | ~2025-04-02 | CT_ITS ---
CLINICAL INDICATION: Nausea vomiting and diarrhea. Personal history of breast cancer. COMPARISON: 10/19/2016. TECHNIQUE: Multiple contiguous axial images of the abdomen and pelvis were performed following the ad ministration of with 100 mL Omnipaque-350 intravenous contrast The dose-length product (DLP) was 599.48 mGy-cm. Automated exposure control and iterative reconstruction technique were employed. FINDINGS/OBSERVATIONS: Visualized lower thorax: The bilateral lung bases are clear. The heart is of normal size, without pericardial effusion. Liver: The liver demonstrates homogeneous enhancement and is not enlarged. Gallbladder and biliary system: The gallbladder is surgically absent. Pancreas: The pancreas enhances homogeneously without ductal dilatation. Spleen: The spleen enhances homogeneously and is not enlarged. Kidneys: 2.6 cm rounded focus of decreased attenuation within the lower pole of the right kidney, unc hanged from 2016 representing a simple cyst. The remainder of the bilateral kidneys otherwise enhance symmetrically without hydronephrosis or elham l calculi. Adrenal glands: Unremarkable. Gastrointestinal tract: Moderate hiatal hernia with mural thickening. Colonic diverticulosis without surrounding inflammatory change. Extensive fecal stasis within the distal colon. Small bowel and proximal colon is distended with fluid, consistent with patient's history. Appendix: The appendix is not definitively visualized. However, no pericecal inflammatory change is identified suggest the presence of acute appendicitis. Vasculature: Unremarkable. Lymph nodes: No pathologically enlarged or morphologically suspicious lymph nodes within the retroperitoneum or at the root of the mesentery. Pelvic structures: The bladder is minimally distended, and otherwise unremarkable. The uterus is anteverted and anteflexed. Body wall and musculoskeletal: Age appropriate degenerative disease within the lumbosacral spine, most severe at the level of L3/L4 with osteophyte formation, endplate changes and facet arthropathy. IMPRESSION: Findings consistent with patient's presenting symptoms of nausea and vomiting. Colonic diverticulosis without surrounding inflammatory change (most severe within the rectum). Moderate hiatal hernia with mural thickening. Reviewed, dictated and finalized at location A. IMPRESSION: Findings consistent with patient's presenting symptoms of nausea and vomiting. Colonic diverticulosis without surrounding inflammatory change (most severe wit hin the rectum). Moderate hiatal hernia with mural thickening.
--- OUTSIDE RECORDS SUMMARY | 2025-04-02 08:44 | XMS_ITS | Encounter Summary ---
Author Organization [facility] Healthcare Address [address] [place] [address] Care Team Providers Care Patent Prosecution Attorney Name Role Phone Wei Swan MD Primary Care Provider [phone] Reason for Visit * Diagnostic Imaging (Routine) - Closed Specialty Diagnoses / Procedures Referred By Contac t Referred To Contact Procedures Breast Imaging Screening Outside Reference Aft, Ciara Dorsey MD PhD [address] [place] [address] Phone: tel: fax: Referral ID Status Reason Start Date Expiration Date Visits Re quested Visits Authorized [id number] Closed 01/26/2022 02/25/2023 1 1 Encounter Details Date Type Department Care Team (Late st Contact Info) Description 07/11/2017 Hospital Encounter [facility] [address] [place], [place] [id number] Social History Tobacco Use Types Packs/Day Years [...] on file 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
--- OUTSIDE RECORDS SUMMARY | 2025-04-02 08:44 | XMS_ITS | Clinical Summary ---
Author Organization [facility] Address [address] [place] [address] Care Team Providers Care Hide And Skin Processing Worker Name Role Phone Wei Swan MD Primary Care Provider [phone] Source Comments [facility],non-owned Affiliates and Associated Physician Practices is amultiple site organization consisting of ambulatory clinics and hospital sitesin [place], [place], [place] and [place]. This disclosure is being madepursuant to the Care Everywhere program and may not contain all information available regarding this patient. 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
--- OUTSIDE RECORDS SUMMARY | 2025-04-02 08:44 | XMS_ITS | Referral Summary ---
Author Organization [facility] Address [address] [place] [address] Care Team Providers Care Payroll Benefits Administrator Name Role Phone Yasir Gonzalez MD Unavailable Aft, Ciara Dorsey MD PhD Unavailable [phone] Monika Bryant MD Unavailable Yeny Oliveira PhD Unavailable [phone] Yossi Reaves MD Primary Care Provider [phone] Jessenia Vaughn ROPER OPERATOR Unavailable [phone] Encounters Date Type Department Care Team Description 03/20/2025 Telephone [facility] Oncology [address] [place] [address] [address] [place] [address] Liza Porras, RN apt cancellation 03/20/2025 Orders Only [facility] Oncology [address] [place] [address] [address] [place] [address] Liza Porras, RN 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 breast in female, estrogen receptor positive (HCC) (Primary Dx) 03/05/2025 Results Follow-Up [facility] Oncology [address] [place] [address] [address] [place] [address] Devon Cabrera NP Dexa Axial Skeleton Bone Density 1 or 2 Site 02/28/2025 3:10 PM CDT Clinical Support [facility] [address] 5th [place] [address] [place] [address] Postmenopausal (Primary Dx); 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 breast in female, estrogen receptor positive (HCC); nursing home (current) use of aromatase inhibitors; Encounter for monitoring zoledronic acid therapy 01/29/2025 Telephone [facility] Oncology [address] [place] [address] from Last [...] simethicone-dip henhydramine-li docaine-nystati n (MAGIC MOUTHWASH) suspension 9-9-0-1Indicati ons:Mouth sores Swish and swallow 10 mL [...] from 02/24/2022:Stage IIA(cT2, cN0(f), cM0, G3, ER+, SD+, HER2-) - Signed by Ilda Jenkins MD on 11/25/2022 Pathologic stage from 10/05/2022:No Stage Recommended(ypT1a, pN1mi(sn), cM0, GX, ER+, SD+, HER2-) - Signed by Ilda Jenkins MD on 11/25/2022 Overview (03/08/2022): Added automatically from request for surgery [id number] Assessment & Plan (05/03/2022 12:59 PM CDT): [...] on file Legal Sex Female 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 Gender Identity Female 03/11/2022 12:06 PM CDT Sexual Orientation Straight 03/11/2022 12 :06 PM CDT Last Filed Vital Signs Vital Sign Reading Time Taken Comments Blood Pressure 112/72 12/19/2024 10:22 AM FRAMING MILL OPERATOR HELPER Pulse 71 12/19/2024 10:22 AM FRAMING MILL OPERATOR HELPER Temperature 36.9 C (98.4 F) 12/19/2024 10:22 AM FRAMING MILL OPERATOR HELPER Respiratory Rate 16 12/19/2024 10:22 AM FRAMING MILL OPERATOR HELPER Oxygen Saturation 98% 12/19/2024 10:22 AM FRAMING MILL OPERATOR HELPER Inhaled Oxygen Concentration - - Weight 80.3 kg (177 lb) 12/19/2024 10:22 AM FRAMING MILL OPERATOR HELPER Height 165.1 cm (5' 5 ) 07/26/2024 8:36 AM CDT Body Mass Index 29.45 07/26/2024 8:36 AM CDT Plan of Treatment Not on file Medical Devices Implanted Type Area Concrete Stone Fabricator Device Identifier Shelf Expiration Date Model / Serial / Lot Bard Peripheral Vascular Ultraclip Bard 17ga 10cm 2 Trigger Permanent Ultrasound [id number] - [id number] Implanted:Qty: 1 on 02/24/2022 at [facility] Bard Peripheral Vascular [id number] / / Bard Peripheral Vascular Powerport Clearvue Airguard 8fr 1 Lumen Lightweight Intermediate Latex Free [id number] - [id number] Implanted:Qty: 1 on 03/16/2022 by Aft, Ciara Dorsey MD PhD at [facility] Right: Chest Bard Peripheral Vascular 05/13/2023 [id number] / / [id number] Bard Peripheral Vascular Ghiatas 20ga 15cm 5cm Beaded Needle Breast Wire Localization [id number] - [id number] Implanted:Qty: 1 on 10/05/2022 at [facility] Left: Breast Bard Peripheral Vascular [id number] / / Procedures Procedure Name Priority Date/Time Associated Diagnosis Comments DEXA AXIAL SKELETON BONE DENSITY 1 OR MORE SITES Schedule Routine, Read Routine (OP Routine) 02/28/2025 3:38 PM CDT 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 breast in female, estrogen receptor positive (HCC) nursing home (current) use of aromatase inhibitors DIAGNOSTIC MAMMOGRAM [...] Bone mineral density was performed on a HoloCorNova Discovery Densitometer. Based on machine cross-calibration and [...] by the International Society of Clinical Densitometry. [id number] us Yasir Gonzalez MD IMG DXA PROCEDURE [...] Electronically signed by: Wes Mas MD Ciara aMrtinez MD PhD IMG MAMMO PROCEDURES Final Result from Last 3 Months or Most Recently Relevant to Health Maintenance Insurance [facility] H[facility]PPO Address: [place] [address] [facility] H[facility]/PPO Address: [place] [address] [facility] H[facility]/PPO Address: [place] [address] Advance Directives For more information, please contact: [phone] * Full Code (Latest Code Status on File) Date Activated Date Inactivated Comments 05/01/2022 8:25 PM 05/03/2022 7:39 PM Care Teams Payroll Benefits Administrator Relationship Specialty Start Date End Date Yossi Reaves MD [address] [place] [address] PCP - General Family Practice 09/02/23 Yasir Gonzalez MD [address] [place] [address] Consulting Physician Medical Oncology 03/08/22 Aft, Ciara Dorsey MD PhD [address] [place] [address] Surgeon Surgical Oncology 03/16/22 Monika Bryant MD [address] [place] [address] Radiation Oncologist Radiation Oncology 11/25/22 Yeny Oliveira, PhD [address] [place] [address] Nurse Practitioner Radiation Oncology 02/07/23 Jessenia Vaughn, [place] [address] [place] [address] Nurse Practitioner Nurse Practitioner 09/05/23
--- OUTSIDE RECORDS SUMMARY | 2025-04-02 08:44 | XMS_ITS | Clinical Summary ---
Author Organization [facility] Address [address] [place] [address] Care Team Providers Care Manager People Name Role Phone Yasir Gonzalez MD Unavailable Aft, Ciara Dorsey MD PhD Unavailable [phone] Monika Bryant MD Unavailable Yeny Oliveira PhD Unavailable [phone] Yossi Reaves MD Primary Care Provider [phone] Jessenia Vaughn INDUSTRIAL PAINTER Unavailable [phone] Allergies Active Allergy Reactions Criticality Noted Date [...] simethicone-dip henhydramine-li docaine-nystati n (MAGIC MOUTHWASH) suspension 5-9-8-1Indicati ons:Mouth sores Swish and swallow 10 mL [...] from 02/24/2022:Stage IIA(cT2, cN0(f), cM0, G3, ER+, CA+, HER2-) - Signed by Ilda Jenkins MD on 11/25/2022 Pathologic stage from 10/05/2022:No Stage Recommended(ypT1a, pN1mi(sn), cM0, GX, ER+, CA+, HER2-) - Signed by Ilda Jenkins MD on 11/25/2022 Overview (03/08/2022): Added automatically from request for surgery [id number] Assessment & Plan (05/03/2022 12:59 PM CDT): [...] Type Department Care Team Description 03/20/2025 Telephone [facility] ([place], [place] Floor 8 [place] [address] Liza Porras RN apt cancellation 03/20/2025 Orders Only [facility] [address] [facility] [place] Floor 8 [place] [address] Liza Porras RN 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 breast in female, estrogen receptor positive (HCC) (Primary Dx) 03/05/2025 Results Follow-Up [facility] [address] [facility] ([place], [place] Floor [address] [place] [address] Devon Cabrera NP Dexa Axial Skeleton Bone Density 1 or 2 Site 02/28/2025 3:10 PM CDT Clinical Support [facility] [address] [facility] Medicine 5th [place] [address] [place] [address] Postmenopausal (Primary Dx); 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 breast in female, estrogen receptor positive (HCC); FDC (current) use of aromatase inhibitors; Encounter for monitoring zoledronic acid therapy 01/29/2025 Telephone [facility] [address] [place] [address] from Last [...] on file Legal Sex Female 2:50 AM FASHION MERCHANDISER Gender Identity Female 03/11/2022 12:06 PM CDT [...] Comments Blood Pressure 112/72 12/19/2024 10:22 AM FASHION MERCHANDISER Pulse 71 12/19/2024 10:22 AM FASHION MERCHANDISER Temperature 36.9 C (98.4 F) 12/19/2024 10:22 AM FASHION MERCHANDISER Respiratory Rate 16 12/19/2024 10:22 AM FASHION MERCHANDISER Oxygen Saturation 98% 12/19/2024 10:22 AM FASHION MERCHANDISER Inhaled Oxygen Concentration - - Weight 80.3 kg (177 lb) 12/19/2024 10:22 AM FASHION MERCHANDISER Height 165.1 cm (5' 5 ) 07/26/2024 [...] history exists Medical Devices Implanted Type Area Reed Fixer Device Identifier Shelf Expiration Date Model / Serial / Lot Bard Peripheral Vascular Ultraclip Bard 17ga 10cm 2 Trigger Permanent Ultrasound [id number] - [id number] Implanted:Qty: 1 on 02/24/2022 at [facility] Bard Peripheral Vascular [id number] / / Bard Peripheral Vascular Powerport Clearvue Airguard 8fr 1 Lumen Lightweight Intermediate Latex Free [id number] - [id number] Implanted:Qty: 1 on 03/16/2022 by Aft, Ciara Dorsey MD PhD at [facility] Right: Chest Bard Peripheral Vascular 05/13/2023 [id number] / / [id number] Bard Peripheral Vascular Ghiatas 20ga 15cm 5cm Beaded Needle Breast Wire Localization [id number] - [id number] Implanted:Qty: 1 on 10/05/2022 at [facility] Left: Breast Bard Peripheral Vascular [id number] / / Procedures Procedure Name Priority Date/Time Associated Diagnosis Comments DEXA AXIAL SKELETON BONE DENSITY 1 OR MORE SITES Schedule Routine, Read Routine (OP Routine) 02/28/2025 3:38 PM CDT 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 breast in female, estrogen receptor positive (HCC) intermodal dispatcher (current) use of aromatase inhibitors DIAGNOSTIC MAMMOGRAM [...] Bone mineral density was performed on a [id number] Discovery Densitometer. Based on machine cross-calibration and [...] by the International Society of Clinical Densitometry. [id number] us Yasir Gonzalez MD IM DXA PROCEDURE [...] Electronically signed by: Wes Mas MD Ciara Martienz MD PhD IMG MAMMO PROCEDURES Final Result from Last 3 Months or Most Recently Relevant to Health Maintenance Insurance [facility] Advance Directives For more information, please contact: [phone] * Full Code (Latest Code Status on File) Date Activated Date Inactivated Comments 05/01/2022 8:25 PM 05/03/2022 7:39 PM Care Teams Manager People Relationship Specialty Start Date End Date Yossi Reaves MD [address] [place] [address] PCP - General Family Practice 09/02/23 Yasir Gonzalez MD [address] [place] [address] Consulting Physician Medical Oncology 03/08/22 Aft, Ciara Dorsey MD PhD [address] [place] [address] Surgeon Surgical Oncology 03/16/22 Monika Bryant MD [address] [place] [address] Radiation Oncologist Radiation Oncology 11/25/22 Yeny Oliveira, PhD [address] [place] [address] Nurse Practitioner Radiation Oncology 02/07/23 Jessenia Vaughn, HAY[place] [address] [place] [address] Nurse Practitioner Nurse Practitioner 09/05/23
--- OUTSIDE RECORDS SUMMARY | 2025-04-02 08:44 | XMS_ITS | Encounter Summary ---
Author Organization [facility] Healthcare Address [address] [place] [address] Care Team Providers Care Case Picker Name Role Phone Wei Swan MD Primary Care Provider [phone] Reason for Visit * Diagnostic Imaging (Routine) - Closed Specialty Diagnoses / Procedures Referred By Contac t Referred To Contact Procedures Breast Imaging Screening Outside Reference Aft, Ciara Dorsey MD PhD [address] [place] [address] Phone: tel: fax: Referral ID Status Reason Start Date Expiration Date Visits Re quested Visits Authorized [id number] Closed 01/26/2022 02/25/2023 1 1 Encounter Details Date Type Department Care Team (Late st Contact Info) Description 07/17/2019 Hospital Encounter [facility] [address] [place], [place] [id number] Social History Tobacco Use Types Packs/Day Years [...] on file Legal Sex Female 2:50 AM HR ADMINISTRATOR Gender Identity Female 03/11/2022 12:06 PM CDT [...] drinking? 1 or 2 11/25/2022 9:34 AM Suamn Sun RN Q3: How often do you [...] only and have not been reviewed by [facility] Radiology. There will be no report generated by a [facility] Radiologist. Narrative [facility] - 01/26/2022 [...] documented as of this encounter Care Teams Case Picker Relationship Specialty Start Date End Date Wei Swan MD [address] [facility] [address] [place] [address] PCP - General 02/22/13 01/13/22 documented as of this encounter
--- OUTSIDE RECORDS SUMMARY | 2025-04-02 08:44 | XMS_ITS | Encounter Summary ---
Author Organization [facility] Address [address] [place] [address] Phone Care Team Providers Care Telex Operator Name Role Phone Yasir Gonzalez MD Unavailable Aft, Ciara Dorsey MD PhD Unavailable [phone] Monika Bryant MD Unavailable Yeny Oliveira PhD Unavailable [phone] Yossi Reaves MD Primary Care Provider [phone] Jessenia Vaughn WAIVER ANALYST Unavailable [phone] Encounter Details Date Type Department Care Team [...] on file Legal Sex Female 2:50 AM DENTAL APPLIANCE FIXER Gender Identity Female 03/11/2022 12:06 PM CDT [...] on filedocumented in this encounter Care Teams Telex Operator Relationship Specialty Start Date End Date Yossi Reaves MD [address] [place] [address] PCP - General Family Practice 09/02/23 Yasir Gonzalez MD [address] [place] [address] Consulting Physician Medical Oncology 03/08/22 Aft, Ciara Dorsey MD PhD [address] [place] [address] Surgeon Surgical Oncology 03/16/22 Monika Bryant MD [address] [place] [address] Radiation Oncologist Radiation Oncology 11/25/22 Yeny Oliveira, PhD [address] [place] [address] Nurse Practitioner Radiation Oncology 02/07/23 Jessenia Vaughn NP [address] [place] [address] Nurse Practitioner Nurse Practitioner 09/05/23 documented as of this encounter
--- OUTSIDE RECORDS SUMMARY | 2025-04-02 08:44 | XMS_ITS | Encounter Summary ---
Author Organization [facility] Healthcare Address [address] [place] [address] Care Team Providers Care Mattress Spring Encaser Name Role Phone Wei Swan MD Primary Care Provider [phone] Reason for Visit * Diagnostic Imaging (Routine) - Closed Specialty Diagnoses / Procedures Referred By Contac t Referred To Contact Procedures Breast Imaging Screening Outside Reference Aft, Ciara Dorsey MD PhD [address] [place] [address] Phone: tel: fax: Referral ID Status Reason Start Date Expiration Date Visits Re quested Visits Authorized [id number] Closed 01/26/2022 02/25/2023 1 1 Encounter Details Date Type Department Care Team (Late st Contact Info) Description 08/15/2020 Hospital Encounter [facility] [address] [place], [place] [id number] Social History Tobacco Use Types Packs/Day Years [...] on file Legal Sex Female 2:50 AM KICK PRESS OPERATOR Gender Identity Female 03/11/2022 12:06 PM [...] documented as of this encounter Care Teams Mattress Spring Encaser Relationship Specialty Start Date End Date Wei Swan MD [address] [facility] [address] [place] [address] PCP - General 02/22/13 01/13/22 documented as of this encounter
--- OUTSIDE RECORDS SUMMARY | 2025-04-02 08:44 | XMS_ITS | Encounter Summary ---
Author Organization [facility] Address [address] [place] [address] Phone Care Team Providers Care Torsion Spring Coiling Machine Setter Name Role Phone Yasir Gonzalez MD Unavailable Aft, Ciara Dorsey MD PhD Unavailable [phone] Monika Bryant MD Unavailable Yeny Oliveira PhD Unavailable [phone] Yossi Reaves MD Primary Care Provider [phone] Jessenia Vaughn CHILDCARE WORKER Unavailable [phone] Encounter Details Date Type Department Care Team [...] on file Legal Sex Female 2:50 AM ICU CLERK Gender Identity Female 03/11/2022 12:06 PM CDT [...] on filedocumented in this encounter Care Teams Torsion Spring Coiling Machine Setter Relationship Specialty Start Date End Date Yossi Reaves MD [address] [place] [address] PCP - General Family Practice 09/02/23 Yasir Gonzalez MD [address] [place] [address] Consulting Physician Medical Oncology 03/08/22 Aft, Ciara Dorsey MD PhD [address] [place] [address] Surgeon Surgical Oncology 03/16/22 Monika Bryant MD [address] [place] [address] Radiation Oncologist Radiation Oncology 11/25/22 Yeny Oliveira, PhD [address] [place] [address] Nurse Practitioner Radiation Oncology 02/07/23 Jessenia Vaughn NP [address] [place] [address] Nurse Practitioner Nurse Practitioner 09/05/23 documented as of this encounter
--- OUTSIDE RECORDS SUMMARY | 2025-04-02 08:44 | XMS_ITS | Encounter Summary ---
Author Organization [facility] Address 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
--- OUTSIDE RECORDS SUMMARY | 2025-04-02 08:44 | XMS_ITS | Encounter Summary ---
Author Organization [facility] Healthcare Address [address] [place] [address] Care Team Providers Care Professor In Family Studies Name Role Phone Wei Swan MD Primary Care Provider [phone] Reason for Visit * Diagnostic Imaging (Routine) - Closed Specialty Diagnoses / Procedures Referred By Contac t Referred To Contact Procedures Breast Imaging US Outside Reference Aft, Ciara Dorsey MD PhD [address] [place] [address] Phone: tel: fax: Referral ID Status Reason Start Date Expiration Date Visits Re quested Visits Authorized [id number] Closed 01/26/2022 02/25/2023 1 1 Encounter Details Date Type Department Care Team (Late st Contact Info) Description 07/25/2017 12:05 AM CDT Hospital Encounter [facility] [address] [place] [address] Social History Tobacco Use Types Packs/Day [...] on file Legal Sex Female 2:50 AM TUNNEL WORKER Gender Identity Female 03/11/2022 12:06 PM [...] only and have not been reviewed by [facility] Radiology. There will be no report generated by a [facility] Radiologist. Narrative [facility] - 01/26/2022 2:59 PM CDT EXAMINATION: Images For Reference Purposes Only us Ciara Martinez MD PhD IMG MAMMO PROCEDURES Final Result [facility] documented in this encounter Visit Diagnoses Not on filedocumented in this encounter Additional Health Concerns Infection Onset Date Last Indicated Resolved Time COVID: Suspected 05/01/2022 05/01/2022 05/01/2022 4:59 AM CDT documented as of this encounter Care Teams Professor In Family Studies Relationship Specialty Start Date End Date Wei Swan MD [address] [facility] [address] [place] [address] [place] [address] PCP - General 02/22/13 01/13/22 documented as of this encounter
--- OUTSIDE RECORDS SUMMARY | 2025-04-02 08:44 | XMS_ITS | Encounter Summary ---
Author Organization [facility] Address [address] [place] [address] Phone Care Team Providers Care Loss Prevention Lead Name Role Phone Yasir Gonzalez MD Unavailable Aft, Ciara Dorsey MD PhD Unavailable [phone] Monika Bryant MD Unavailable Yeny Oliveira PhD Unavailable [phone] Yossi Reaves MD Primary Care Provider [phone] Jessenia Vaughn BREAKFAST HOST Unavailable [phone] Encounter Details Date Type Department Care Team [...] on file Legal Sex Female 2:50 AM COVER STRIPPER Gender Identity Female 03/11/2022 12:06 PM CDT [...] on filedocumented in this encounter Care Teams Loss Prevention Lead Relationship Specialty Start Date End Date Yossi Reaves MD [address] [facility] [address] [place] [address] PCP - General Family Practice 09/02/23 Yasir Gonzalez MD [address] [place] [address] Consulting Physician Medical Oncology 03/08/22 Aft, Ciara Dorsey MD PhD [address] [place] [address] Surgeon Surgical Oncology 03/16/22 Monika Bryant MD [address] [facility] [address] [place] [address] Radiation Oncologist Radiation Oncology 11/25/22 Yeny Oliveira, PhD [address] [facility] [address] [place] [address] Nurse Practitioner Radiation Oncology 02/07/23 Jessenia Vaughn NP [facility][note 3] [place] [address] Nurse Practitioner Nurse Practitioner 09/05/23 documented as of this encounter
--- OUTSIDE RECORDS SUMMARY | 2025-04-02 08:44 | XMS_ITS | Encounter Summary ---
Author Organization [facility] Healthcare Address [address] [place] [address] Care Team Providers Care Blurb Writer Name Role Phone Wei Swan MD Primary Care Provider [phone] Reason for Visit * Diagnostic Imaging (Routine) - Closed Specialty Diagnoses / Procedures Referred By Contac t Referred To Contact Procedures Breast Imaging Screening Outside Reference Aft, Ciara Dorsey MD PhD [address] [place] [address] Phone: tel: fax: Referral ID Status Reason Start Date Expiration Date Visits Re quested Visits Authorized [id number] Closed 01/26/2022 02/25/2023 1 1 Encounter Details Date Type Department Care Team (Late st Contact Info) Description 07/14/2018 Hospital Encounter [facility] [address] [place], [place] [id number] Social History Tobacco Use Types Packs/Day Years [...] on file Legal Sex Female 2:50 AM SUPERVISOR PAIRING AND INSPECTING Gender Identity Female 03/11/2022 12:06 PM CDT [...] drinking? 1 or 2 11/25/2022 9:34 AM Sumna Sun RN Q3: How often do you [...] only and have not been reviewed by [facility] Radiology. There will be no report generated by a [facility] Radiologist. Narrative [facility]_M[facility]MO[facility] - 01/26/2022 [...] documented as of this encounter Care Teams Blurb Writer Relationship Specialty Start Date End Date Wei Swan MD [address] [facility] [address] [place] [address] PCP - General 02/22/13 01/13/22 documented as of this encounter
--- OUTSIDE RECORDS SUMMARY | 2025-04-02 08:44 | XMS_ITS ---
Author Organization [facility] Address [address] [place] [address] Care Team Providers Care Counter Roller Name Role Phone Yasir Gonzalez MD Unavailable Aft, Ciara Dorsey MD PhD Unavailable Monika Bryant MD Unavailable Yeny Oliveira PhD Unavailable Yossi Reaves MD Primary Care Provider [phone] Jessenia Vaughn SECOND SHIFT SUPERVISOR Unavailable [phone] Active Problems Problem Noted Date Diagnosed Date [...] from 02/24/2022:Stage IIA(cT2, cN0(f), cM0, G3, ER+, WV+, HER2-) - Signed by Ilda Jenkins MD on 11/25/2022 Pathologic stage from 10/05/2022:No Stage Recommended(ypT1a, pN1mi(sn), cM0, GX, ER+, WV+, HER2-) - Signed by Ilda Jenkins MD on 11/25/2022 Overview (03/08/2022): Added automatically from request for surgery [id number] Assessment & Plan (05/03/2022 12:59 PM CDT): [...]
--- OUTSIDE RECORDS SUMMARY | 2025-04-02 08:44 | XMS_ITS | Encounter Summary ---
Author Organization [facility] Healthcare Address [address] [place] [address] Care Team Providers Care Breaker Engineer Name Role Phone Wei Swan MD Primary Care Provider [phone] Reason for Visit * Diagnostic Imaging (Routine) - Closed Specialty Diagnoses / Procedures Referred By Contac t Referred To Contact Procedures Breast Imaging Screening Outside Reference Aft, Ciara Dorsey MD PhD [address] [place] [address] Phone: tel: fax: Referral ID Status Reason Start Date Expiration Date Visits Re quested Visits Authorized [id number] Closed 01/26/2022 02/25/2023 1 1 Encounter Details Date Type Department Care Team (Late st Contact Info) Description 07/07/2016 Hospital Encounter [facility]iology [facility] [address] [place], [place] [id number] Social History Tobacco Use Types Packs/Day Years [...] on file Legal Sex Female 2:50 AM STATION BAGGAGE AGENT Gender Identity Female 03/11/2022 12:06 PM CDT [...] and have not been reviewed by [facility] Radiology. There will be no report generated by a [facility] Radiologist. Narrative RAD_MAMMO[facility] - 01/26/2022 [...] documented as of this encounter Care Teams Breaker Engineer Relationship Specialty Start Date End Date Wei Swan MD [address] [facility] [address] [place] [address] PCP - General 02/22/13 01/13/22 documented as of this encounter
--- OUTSIDE RECORDS SUMMARY | 2025-04-02 08:44 | XMS_ITS | Encounter Summary ---
Author Organization [facility] Address [address] [place] [address] Phone Care Team Providers Care Real Estate Officer Name Role Phone Yasir Gonzalez MD Unavailable AftCiara MD PhD Unavailable [phone] Monika Bryant MD Unavailable Yeny Oliveira PhD Unavailable [phone] Yossi Reaves MD Primary Care Provider [phone] Jessenia Vaughn CLOUD SERVICES ARCHITECT Unavailable [phone] Encounter Details Date Type Department Care Team (Late st Contact Info) Description 03/05/2025 Results Follow-Up [facility] Oncology [address] [facility] [address] [place] [address] Devon Cabrera NP [address] [place] [address] Dexa Axial Skeleton Bone Density 1 or [...] on file Legal Sex Female 2:50 AM MAORI LIAISON ADVISER Gender Identity Female 03/11/2022 12:06 PM CDT Sexual Orientation Straight 03/11/2022 12 :06 PM CDT documented as of this encounter Plan of Treatment Not on file documented as of this encounter Visit Diagnoses Not on filedocumented in this encounter Care Teams Real Estate Officer Relationship Specialty Start Date End Date Yossi Reaves MD [address] [place] [address] PCP - General Family Practice 09/02/23 Yasir Gonzalez MD [address] [place] [address] Consulting Physician Medical Oncology 03/08/22 Aft, Ciara Dorsey MD PhD [address] [place] [address] Surgeon Surgical Oncology 03/16/22 Monika Bryant MD [address] [facility] [address] [place] [address] Radiation Oncologist Radiation Oncology 11/25/22 Yeny Oliveira, PhD [address] [facility] [address] [place] [address] Nurse Practitioner Radiation Oncology 02/07/23 Jessenia Vaughn NP [address] [place] [address] Nurse Practitioner Nurse Practitioner 09/05/23 documented as of this encounter
--- OUTSIDE RECORDS SUMMARY | 2025-04-02 08:44 | XMS_ITS | Encounter Summary ---
Author Organization [facility] Address [address] [place] [address] Phone Care Team Providers Care Photo Engraver Name Role Phone Giovanni Gutierrez DO Primary Care Provider [phone] Jessenia Vaughn INTAKE ASSESSOR Unavailable [phone] Yasir Gonzalez MD Unavailable Aft, Ciara Dorsey MD PhD Unavailable [phone] Monika Bryant MD Unavailable Nenita Rivera DPT Unavailable Yeny Oliveira PhD Unavailable [phone] Yossi Reaves MD Primary Care Provider [phone] Jessenia Vaughn INTAKE ASSESSOR Unavailable [phone] Encounter Details Date Type Department Care Team [...] file Legal Sex Female 2:50 AM SUPERVISOR SOUND TECHNICIAN Gender Identity Female 03/11/2022 12:06 PM [...] on filedocumented in this encounter Care Teams Photo Engraver Relationship Specialty Start Date End Date Giovanni Gutierrez DO PCP - General Internal Medicine 01/14/22 05/11/23 Yossi Reaves MD [address] [facility] [address] [place] [address] PCP - General Family Practice 09/02/23 Jessenia Vaughn NP Nurse Practitioner Nurse Practitioner 01/14/22 Yasir Villeda MD [address] [place] [address] Consulting Physician Medical Oncology 03/08/22 AftCiara MD PhD [address] [facility] [place] [address] Surgeon Surgical Oncology 03/16/22 Monika Bryant MD [address] [facility] [address] [place] [address] Radiation Oncologist Radiation Oncology 11/25/22 Nenita Rivera DPT [address] [place] [address] Physical Therapist Physical Therapy 12/06/22 01/19/24 Yeny Oliveira, PhD [address] [place] [address] Nurse Practitioner Radiation Oncology 02/07/23 Jessenia Vaughn, HAYLEY [address] [place] [address] Nurse Practitioner Nurse Practitioner 09/05/23 documented as of this encounter
--- OUTSIDE RECORDS SUMMARY | 2025-04-02 08:44 | XMS_ITS | Encounter Summary ---
Author Organization [facility] Healthcare Address [address] [place] [address] Care Team Providers Care Wood Treating Inspector Name Role Phone Wei Swan MD Primary Care Provider [phone] Reason for Visit * Diagnostic Imaging (Routine) - Closed Specialty Diagnoses / Procedures Referred By Contac t Referred To Contact Procedures Breast Imaging Diagnostic Outside Reference Aft, Ciara Dorsey MD PhD [address] [place] [address] Phone: tel: fax: Referral ID Status Reason Start Date Expiration Date Visits Re quested Visits Authorized [id number] Closed 01/26/2022 02/25/2023 1 1 Encounter Details Date Type Department Care Team (Late st Contact Info) Description 07/25/[address] [facility] [address] [place], [place] [id number] Social History Tobacco Use Types Packs/Day Years [...] on file Legal Sex Female 2:50 AM BREAKFAST SERVER Gender Identity Female 03/11/2022 12:06 PM CDT [...] only and have not been reviewed by [facility] Radiology. There will be no report generated by a [facility] Radiologist. Narrative [id number] - 01/26/2022 [...] documented as of this encounter Care Teams Wood Treating Inspector Relationship Specialty Start Date End Date Wei Swan MD [address] [facility] [address] [place] [address] PCP - General 02/22/13 01/13/22 documented as of this encounter
--- OUTSIDE RECORDS SUMMARY | 2025-04-02 08:44 | XMS_ITS | Encounter Summary ---
Author Organization [facility] Address [address] [place] [address] Care Team Providers Care Community Center Coordinator Name Role Phone Wei Swan MD Primary Care Provider Encounter Details Date Type Department Care Team (Late st Contact Info) Description 06/19/2020 Lab Requisition [facility] Care DermPath Lab [address] [facility] [place] [id number] Phillip Sims MD [address] [place] [address] Social History Tobacco Use Types Packs/Day Years Used Date Smoking Tobacco: Never Smokeless Tobacco: Never Alcohol Use Standard Drinks/Week Comments Yes 0 (1 standard drink = 0.6 oz pur e alcohol) Comments Unknown Sex and Gender Information Value Date Recorded Sex Assigned at Not on file Legal Sex Female 5:29 PM HOME HEALTH MANAGER Gender Identity Not on file Sexual Orientation Not on file documented as of this encounter Plan of Treatment Not on file documented as of this encounter Procedures Procedure Name Priority Date/Time Associated Diagnosis Comments DERMATOPATHOLOGY Routine 06/18/2020 12:0 0 AM CDT documented in this encounter Results * DERMATOPATHOLOGY (06/18/2020 12:00 AM CDT) Case Report Dermatopathology Report Case: [id number] Authorizing Provider: Phillip Sims MD Collected: 06/18/2020 12:00 AM Ordering Location: [facility] Care DermPath Lab Received: 06/19/2020 12:27 PM [...] specimen consists of a shave biopsy measuring [id number]. Jar 0. Specimen B: Received is one formalin filled container labeled with the patient's name and designated dependent left lat breast. The specimen consists of a shave biopsy (2 pieces) measuring [id number] & [id number]. Jar 0. 0 12:34 PM CDT DERMATOPATHOLOGY [...] characteristic determined by the Dermatopathology Laboratory at [facility], directed by Dr. Deepthi Larson. These tests need not be, and therefore are not, approved by the [place] Food and Drug Administration. The tests are used for clinical purposes. Billing Codes Specimen Charges Stain Charges 82191 75194 1 1 20545 19789 1 1 0 12:34 PM CDT DERMATOPATHOLOGY LABORATORY Embedded Images 0 12:34 PM CDT DERMATOPATHOLOGY LABORATORY Pathology/Cytology TISSUE SPECIMEN FROM SKIN / Unknown 06/18/2020 06/19/2020 12:27 PM CDT Miscellaneous samples (specimen) TISSUE SPECIMEN FROM SKIN / Unknown 06/18/2020 06/19/2020 12:27 PM CDT Phillip Sims MD LAB - PATHOLOGY/CYTOLOGY ORD ERABLES Final Result DERMATOPATHOLOGY LABORATORY [facility] - Department of Dermatology Geological Technical Officer Center/[address] [phone] documented in this encounter Visit Diagnoses Not on filedocumented in this encounter Care Teams Community Center Coordinator Relationship Specialty Start Date End Date Wei Swan MD [address] [place] [address] PCP - General 06/28/17 documented as of this encounter
--- OUTSIDE RECORDS SUMMARY | 2025-04-02 08:45 | XMS_ITS | Encounter Summary ---
Author Organization [employer] Address [address] [place] [address] Care Team Providers Care Refuge Worker Name Role Phone Unavailable Primary Care Provider Unavailabl e Encounter Details Date Type Department Care Team (Latest Contact Info) Description 08/11/1999 Outpatient Historical [facility] Clinton Mota MD NO ADDRESS ON FILE Female infertility associated with anovulation (Primary Dx) Social History Tobacco Use Types Packs/Day Years Used Date Smoking Tobacco: Never Assessed Comments Unknown Sex and Gender Information Value Date Recorded Sex Assigned at Not on file Legal Sex Female 4:53 AM LEAN MANAGER Gender Identity Not on file Sexual Orientation Not on file documented as of this encounter Plan of Treatment Not on file documented as of this encounter Visit Diagnoses Diagnosis 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
--- OUTSIDE RECORDS SUMMARY | 2025-04-02 08:45 | XMS_ITS | Encounter Summary ---
Author Organization [facility] Address [address] [place] [address] Care Team Providers Care Packer Operator Automatic Name Role Phone Unavailable Primary Care Provider Unavailabl e Encounter Details Date Type Department Care Team (Latest Contact Info) Description 12/01/1999 Outpatient Historical [facility] Clinton Mota MD NO ADDRESS ON FILE Female infertility of unspecified origin (Primary Dx) Social History Tobacco Use Types Packs/Day Years Used Date Smoking Tobacco: Never Assessed Comments Unknown Sex and Gender Information Value Date Recorded Sex Assigned at Not on file Legal Sex Female 4:53 AM AUTO WHEEL ALIGNMENT SPECIALIST Gender Identity Not on file Sexual Orientation Not on file documented as of this encounter Plan of Treatment Not on file documented as of this encounter Visit Diagnoses Diagnosis Female infertility of unspecified origin- Primary documented in this encounter
--- OUTSIDE RECORDS SUMMARY | 2025-04-02 08:45 | XMS_ITS | Encounter Summary ---
Author Organization [facility] Address [address] [place] [address] Care Team Providers Care Food Safety Field Specialist Name Role Phone Unavailable Primary Care Provider Unavailabl e Encounter Details Date Type Department Care Team (Latest Contact Info) Description 10/14/1999 Outpatient Historical [facility] Clinton Mota MD NO ADDRESS ON FILE Female infertility associated with anovulation (Primary Dx) Social History Tobacco Use Types Packs/Day Years Used Date Smoking Tobacco: Never Assessed Comments Unknown Sex and Gender Information Value Date Recorded Sex Assigned at Not on file Legal Sex Female 4:53 AM NETWORK SUPPORT MANAGER Gender Identity Not on file Sexual Orientation Not on file documented as of this encounter Plan of Treatment Not on file documented as of this encounter Visit Diagnoses Diagnosis 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
--- OUTSIDE RECORDS SUMMARY | 2025-04-02 08:45 | XMS_ITS | Encounter Summary ---
Author Organization [facility] Address [address] [place] [address] Care Team Providers Care Plywood And Veneer Repairer Name Role Phone Unavailable Primary Care Provider [...] on file Legal Sex Female 4:53 AM TRUCK SERVICE TECHNICIAN Gender Identity Not on file Sexual Orientation Not on file documented as of this encounter Plan of Treatment Not on file documented as of this encounter Visit Diagnoses Diagnosis Investigation and testing for procreation management- Primary documented in this encounter
--- OUTSIDE RECORDS SUMMARY | 2025-04-02 08:45 | XMS_ITS | Encounter Summary ---
Author Organization [facility] Address [address] [place] [address] Care Team Providers Care Senior Payroll Administrator Name Role Phone Unavailable Primary Care Provider Unavailabl e Encounter Details Date Type Department Care Team (Latest Contact Info) Description 01/02/2000 Outpatient Historical [facility] Clinton Mota MD NO ADDRESS ON FILE Female infertility of unspecified origin (Primary Dx) Social History Tobacco Use Types Packs/Day Years Used Date Smoking Tobacco: Never Assessed Comments Unknown Sex and Gender Information Value Date Recorded Sex Assigned at Not on file Legal Sex Female 4:53 AM YARD JOCKEY Gender Identity Not on file Sexual Orientation Not on file documented as of this encounter Plan of Treatment Not on file documented as of this encounter Visit Diagnoses Diagnosis Female infertility of unspecified origin- Primary documented in this encounter
--- OUTSIDE RECORDS SUMMARY | 2025-04-02 08:45 | XMS_ITS | Clinical Summary ---
Author Organization [facility] Address [address] Robertn: Epic Prelude [place]T [place] [address] Care Team Providers Care Negotiator Sales Name Role Phone Unavailable Primary Care Provider Unavailabl e Social History Tobacco Use Types Packs/Day Years Used Date Smoking Tobacco: Never Assessed Comments Unknown Sex and Gender Information Value Date Recorded Sex Assigned at Not on file Legal Sex Female 4:53 AM LINE DRIVER Gender Identity Not on file Sexual Orientation [...]
--- OUTSIDE RECORDS SUMMARY | 2025-04-02 08:45 | XMS_ITS | Encounter Summary ---
Author Organization [facility] Address 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
--- OUTSIDE RECORDS SUMMARY | 2025-04-02 08:45 | XMS_ITS | Encounter Summary ---
Author Organization [facility] Address [address] [place] [address] Care Team Providers Care Stock Handler Name Role Phone Unavailable Primary Care Provider Unavailabl e Encounter Details Date Type Department Care Team (Latest Contact Info) Description 03/06/2000 Outpatient Historical [facility] Clinton Mota MD NO ADDRESS ON FILE Female infertility of unspecified origin (Primary Dx) Social History Tobacco Use Types Packs/Day Years Used Date Smoking Tobacco: Never Assessed Comments Unknown Sex and Gender Information Value Date Recorded Sex Assigned at Not on file Legal Sex Female 4:53 AM CUSTOMER ACCOUNT SPECIALIST Gender Identity Not on file Sexual Orientation Not on file documented as of this encounter Plan of Treatment Not on file documented as of this encounter Visit Diagnoses Diagnosis Female infertility of unspecified origin- Primary documented in this encounter
--- OUTSIDE RECORDS SUMMARY | 2025-04-02 08:45 | XMS_ITS | Encounter Summary ---
Author Organization [facility] Address [address] [place] [address] Care Team Providers Care Double End Sewer Name Role Phone Unavailable Primary Care Provider [...] on file Legal Sex Female 4:53 AM MEMORY CARE PROGRAM DIRECTOR Gender Identity Not on file Sexual Orientation Not on file documented as of this encounter Plan of Treatment Not on file documented as of this encounter Visit Diagnoses Diagnosis Unspecified symptom associated with female genital organs- Primary documented in this encounter
--- OUTSIDE RECORDS SUMMARY | 2025-04-02 08:45 | XMS_ITS | Encounter Summary ---
Author Organization [facility] Address [address] [place] [address] Care Team Providers Care Railway Signalling Engineer Name Role Phone Unavailable Primary Care Provider [...] on file Legal Sex Female 4:53 AM PLUG WIRER Gender Identity Not on file Sexual Orientation Not on file documented as of this encounter Plan of Treatment Not on file documented as of this encounter Visit Diagnoses Diagnosis Endometriosis of fallopian tube- Primary documented in this encounter
--- OUTSIDE RECORDS SUMMARY | 2025-04-02 08:45 | XMS_ITS | Encounter Summary ---
Author Organization [facility] Address [address] [place] [address] Care Team Providers Care Environmental Services Attendant Name Role Phone Unavailable Primary Care Provider [...] on file Legal Sex Female 4:53 AM TEACHER SELECTION SPECIALIST Gender Identity Not on file Sexual Orientation Not on file documented as of this encounter Plan of Treatment Not on file documented as of this encounter Visit Diagnoses Diagnosis 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
--- OUTSIDE RECORDS SUMMARY | 2025-04-02 08:45 | XMS_ITS | Encounter Summary ---
Author Organization [facility] Address [address] [place] [address] Care Team Providers Care Director Of Customer Service Name Role Phone Unavailable Primary Care Provider Unavailabl e Encounter Details Date Type Department Care Team (Latest Contact Info) Description 03/18/1999 Outpatient Historical [facility] Clinton Mota MD NO ADDRESS ON FILE Female infertility associated with anovulation (Primary Dx) Social History Tobacco Use Types Packs/Day Years Used Date Smoking Tobacco: Never Assessed Comments Unknown Sex and Gender Information Value Date Recorded Sex Assigned at Not on file Legal Sex Female 4:53 AM CLOTHES IRONER Gender Identity Not on file Sexual Orientation Not on file documented as of this encounter Plan of Treatment Not on file documented as of this encounter Visit Diagnoses Diagnosis 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
--- OUTSIDE RECORDS SUMMARY | 2025-04-02 08:45 | XMS_ITS | Encounter Summary ---
Author Organization [facility] Address [address] [place] [address] Care Team Providers Care University Partnership Rep Name Role Phone Unavailable Primary Care Provider Unavailabl e Encounter Details Date Type Department Care Team (Latest Contact Info) Description 2000 Outpatient Historical [facility] Clinton Mota MD NO ADDRESS ON FILE Female infertility of unspecified origin (Primary Dx) Social History Tobacco Use Types Packs/Day Years Used Date Smoking Tobacco: Never Assessed Comments Unknown Sex and Gender Information Value Date Recorded Sex Assigned at Not on file Legal Sex Female 4:53 AM FINANCIAL ACCOUNTING MANAGER Gender Identity Not on file Sexual Orientation Not on file documented as of this encounter Plan of Treatment Not on file documented as of this encounter Visit Diagnoses Diagnosis Female infertility of unspecified origin- Primary documented in this encounter
--- OUTSIDE RECORDS SUMMARY | 2025-04-02 08:45 | XMS_ITS | Encounter Summary ---
Author Organization [facility] Address [address] [place] [address] Care Team Providers Care Elocution Teacher Name Role Phone Unavailable Primary Care Provider Unavailabl e Encounter Details Date Type Department Care Team (Latest Contact Info) Description 09/12/[address] 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
--- NOTE | 2025-04-02 08:58 | PC.NURSE ---
pt requesting not to get into gown at this time. pt made aware that urine sample is needed. declining straight cath at this time.
[2025-04-02 09:00] LABS: Basophils Percent Auto 0.8 % (0.2-1.2); Eosinophils Percent Auto 1.2 % (0-4.4); Hematocrit 36.9 % (37.0-47.0); Hemoglobin 13.6 g/dL (12.0-15.0); Immature Granulocyte Absolute 0.02 K/mm3 (0.00-0.031); Immature Granulocyte Percent A 0.8 % (0-0.5); Lymphocytes Absolute Auto 0.07 K/mm3 (0.9-3.2); Lymphocytes Percent Auto 2.8 % (18.3-44.2); Mean Corpuscular HGB Conc 36.9 g/dl (32-36); Mean Corpuscular Hemoglobin 39.9 pg (26-34); Mean Corpuscular Volume 108.2 fl (80-100); Mean Platelet Volume 9.1 fl (7.4-10.4); Monocytes Absolute Auto 0.1 K/mm3 (0.1-0.6); Monocytes Percent Auto 3.6 % (2.6-8.5); Neutrophils Absolute Auto 2.3 K/mm3 (1.3-6.7); Neutrophils Percent Auto 90.8 % (45.5-73.1); Platelet Count Result 138 k/mm3 (150-375); Red Blood Count 3.41 M/mm3 (4.2-5.4); Red Cell Distribution Width 12.3 % (11.5-14.5); White Blood Count 2.5 K/mm3 (4.5-10.0)
--- NOTE | 2025-04-02 09:07 | ED.NAVMDI ---
HPI - Nausea/Vomiting/Diarrhea General Chief complaint: Nausea/Vomiting/Diarrhea Stated complaint: N/V/D Time Seen by Provider: 04/02/25 08:55 Source: patient and family (Daughter) Mode of arrival: ambulatory Limitations: no limitations History of Present Illness HPI Narrative: Patient presents with nausea, vomiting and diarrhea that started last night after eating a rare steak. She is concerned about food poisoning. She has more than a dozen episodes emesis and similar number episodes of liquid stool. Non bloody stools. Denies any fevers but is having chills. She is also complaining abdominal pain that is generalized right greater than left. Her last bowel movement was just before leaving home and remained diarrheal. History lalo. Currently on Verzenio for breast cancer which does make her nauseous at baseline. Related Data Home Medications ?Medication ?Instructions ?Recorded ?Confirmed ?Last Taken ?Type gabapentin 300 mg capsule 300 mg PO BID 10/04/23 10/15/24 Unknown History vibegron 75 mg tablet (Gemtesa) 75 mg PO DAILY 10/04/23 10/15/24 Unknown History dicyclomine 20 mg tablet 20 mg PO QID PRN abdominal pain 04/10/24 10/15/24 Unknown History abemaciclib 150 mg tablet 150 mg PO BID 10/15/24 10/15/24 Unknown History (Verzenio) Allergies Allergy/AdvReac Type Severity Reaction Status Date / Time Penicillins Allergy Intermediate Hives Verified 04/02/25 08:51 adhesive tape AdvReac Mild RASH, Verified 04/02/25 08:51 ITCHING PMFSH Past Medical History Medical History Breast cancer COVID-19 Cervicalgia Chronic low back pain Back pain associated with peripheral numbness Screening for colon cancer Screening for breast cancer Postmenopausal SVT (supraventricular tachycardia) 2010 History of tongue cancer Anxiety and depression Attention deficit hyperactivity disorder (ADHD), combined type Grade II diastolic dysfunction Mitral valve prolapse Other and unspecified hyperlipidemia Primary insomnia Surgical History Surgical History History of laparoscopic cholecystectomy 05/09/20 H/O rectal sphincterotomy Endometriosis determined by laparoscopy History of tonsillectomy H/O section S/P bunionectomy History of carpal tunnel release Family History Family History Mother Alzheimer disease Unknown Colon cancer Social History Social History Smoking status: Never smoker Second hand tobacco smoke exposure: No Alcohol intake: current Alcohol use details: a glass of wine every night with dinner Substance use: never Substance use type: does not use Do You Feel Safe in your Home?: Yes Lack of Transportation: No Lack of Food: Never True Current Housing: I Have Housing Concerned About Future Housing: No Difficulty Paying Gas/Electric Bills: No Difficulty Paying for Meds: No Currently Unemployed: No Education: Master's Degree or Higher Difficulty w/ Childcare or Family Care: No Living arrangements: with family Occupation/Education: occupation Gender identity (if verbalized by the patient): Female Sexual Orientation (if Verbalized by the Patient): Straight or Heterosexual Spiritual care concerns: No Agree to blood products: Yes Exam Narrative: GENERAL: well-nourished, in no acute distress. HEAD: Normocephalic, atraumatic. EYES: Non injected, non icteric ENT: Nares clear, no rhinorrhea or epistaxis. Tacky mucous membranes NECK: Supple. CHEST: Speaking in full sentences. No respiratory distress. HEART: Regular rate and rhythm. ABDOMEN: Soft, nondistended. No tenderness to palpation. Abdomen is without rigidity or guarding. Not peritoneal. EXTREMITIES: Normal range of motion. No lower extremity edema. SKIN: Warm, dry, no rash. NEURO: No focal deficits. Alert and oriented x3. PSYCH: Normal mood and affect. Course Vital Signs Vital signs: Vital Signs Temperature 98 F 04/02/25 08:41 Pulse Rate 77 04/02/25 08:41 Respiratory Rate 17 04/02/25 08:41 Blood Pressure 122/71 04/02/25 08:41 Pulse Oximetry 100 04/02/25 08:41 Oxygen Delivery Room Air 04/02/25 08:41 Temperature 97.9 F 04/02/25 10:55 Pulse Rate 90 04/02/25 17:01 Respiratory Rate 18 04/02/25 17:01 Blood Pressure 100/61 04/02/25 17:01 Pulse Oximetry 96 04/02/25 17:01 Oxygen Delivery Room Air 04/02/25 08:41 MDM - Nausea/Vomiting/Diarrhea MDM Narrative Medical decision making narrative: Patient presents with acute onset nausea, vomiting, and diarrhea starting last night after having a rare steak. Patient is concerned about food poisoning. She is also a medication for breast cancer the makes her nauseated at baseline at times. Complaining generalized abdominal pain although right greater than left. In the emergency department they are afebrile with vital signs within normal limits. Patient has leukopenia, previously seen although worse today. She also has very mild thrombocytopenia. Hyperglycemia without anion gap acidosis. Ordered analgesic medication as well as antiemetic and 1L IV fluids for tacky mucous membranes. Upon reassessment she notes her N/V/D are better but she has a headache after a vomiting. CT head ordered. After negative for acute intracranial pathology, headache cocktail ordered. I am informed by nurse that patient has had to hypotensive blood pressures checked in bilateral upper extremities. Another 1 L IV fluids ordered. Patient otherwise appears better and notes that her symptoms have markedly improved. I suspect that the hypotension is a combination of the blood pressure being checked with cuff overlying her thick cardigan and medication side effect but, when still remains hypotensive after appropriately obtaining BP measurement, anotehr 1L fluids ordered. Upon reassessment, she does note that her symptoms are resolved and she is feeling better. Blood pressures are borderline but patient feels like she is better able to sit up and trial PO. After doing this, patient has several repeat blood pressures that are improved. Stable for discharge although Patient advised to follow up with her care team including oncologist (has an appoitnment tomorrow) and given return precautions. Patiend and daughter comfortable with plan. Prescribed Zofran ODT. Differential Diagnosis Differential diagnosis: Likely food poisoning, gastroenteritis, drug-induced nausea and vomiting, dehydration and other (appendicitis) Lab Data Attestation: I reviewed the patient's lab results. 04/02/25 08:52 04/02/25 08:52 Labs: Lab Results 04/02/25 04/02/25 Range/Units 08:52 10:54 WBC 2.5 L (4.5-10.0) K/mm3 RBC 3.41 L (4.2-5.4) M/mm3 Hgb 13.6 (12.0-15.0) g/dL Hct 36.9 L (37.0-47.0) % MCV 108.2 H (80-100) fl MCH 39.9 H (26-34) pg MCHC 36.9 H (32-36) g/dl RDW 12.3 (11.5-14.5) % Plt Count 138 L D (150-375) k/mm3 MPV 9.1 (7.4-10.4) fl Immature Gran % (Auto) 0.8 H (0-0.5) % Neut % (Auto) 90.8 H (45.5-73.1) % Lymph % (Auto) 2.8 L (18.3-44.2) % [place] % (Auto) 3.6 (2.6-8.5) % Eos % (Auto) 1.2 (0-4.4) % Baso % (Auto) 0.8 (0.2-1.2) % Lymph # (Auto) 0.07 L (0.9-3.2) K/mm3 [place] # (Auto) 0.1 (0.1-0.6) K/mm3 Eos # (Auto) 0.0 (0-0.3) K/mm3 Baso # (Auto) 0.0 (0.0-0.1) K/mm3 Abs Immat Gran (auto) 0.02 (0.00-0.031) K/mm3 Absolute Neuts (auto) 2.3 (1.3-6.7) K/mm3 Absolute Nucleated RBC 0.000 (0.0-0.012) K/mm3 Nucleated RBC % 0.0 (0.0-0.2) % Sodium 138 (137-145) mmol/L Potassium 3.4 (3.4-5.0) mmol/L Chloride 104 (98-107) mmol/L Carbon Dioxide 25 (22-30) mmol/L Anion Gap 9 (4-12) mmol/L BUN 12 (7-17) mg/dL Creatinine 0.86 (0.7-1.0) mg/dL Estim Creat Clear Calc 57 ml/min Estimated GFR > 60 (59 - ) Glucose 144 H (65-110) mg/dL Calcium 9.5 (8.4-10.2) mg/dL Magnesium 1.7 (1.6-2.3) mg/dL Total Bilirubin 0.9 (0.2-1.3) mg/dL AST 39 H (14-36) U/L ALT 21 (6-35) U/L Alkaline Phosphatase 66 (38-126) U/L Total Protein 7.0 (6.3-8.2) g/dL Albumin 4.3 (3.5-5.1) g/dL Lipase 19 L (23-300) U/L Urine Color Yellow (Yellow) Urine Appearance Clear (Clear) Urine pH 6.0 (5.0-9.0) Ur Specific [place] > 1.045 H (1.001-1.035) Urine Protein Trace (Negative) mg/dL Urine Glucose (UA) Negative (Negative) mg/dL Urine Ketones 2+ H (Negative) mg/dL Ur Blood (Man) Non-hemolyzed trace H (Negative) Urine Nitrate Negative (Negative) Urine Bilirubin Negative (Negative) Urine Urobilinogen 0.2 (<2.0) mg/dL Leukocyte Esterase Rfl Negative (Negative) SAHRA/UL Urine RBC 6-10 H (0-2) /hpf Urine WBC 0-5 (0-3) /hpf Ur Squamous Epith Cells None seen (Few) /hpf Urine Bacteria None seen /hpf Urine Casts 0-2 Imaging Data Radiologist's impression: IMPRESSION: Findings consistent with patient's presenting symptoms of nausea and vomiting. Colonic diverticulosis without surrounding inflammatory change (most severe within the rectum). Moderate hiatal hernia with mural thickening. IMPRESSION: 1. No acute intracranial process. 2. Empty sella with pituitary flattened along the floor of the sella which can be seen in the setting of idiopathic intracranial hypertension. Discharge Plan Discharge Clinical Impression: Right sided abdominal pain, Leukopenia, Diverticulosis of colon, Hernia, hiatal, Headache, Empty sella, Microscopic hematuria, Gastroenteritis Patient Disposition: Home Condition: Stable Instructions: Antibiotic Form, Hiatal Hernia (ED), Diverticulosis (DC), Gastroenteritis (DC), Acute Headache (DC), Acute Nausea and Vomiting (ED), Abdominal Pain (ED) Additional Instructions: Rest and maintain your hydration. The oral disintegrating tablets of Zofran can help with you continue to feel nauseated. Follow-up with primary care provider as well as the rest of your care team including your senior sql server developer/oncologist. Return to the Emergency Department immediately if the pain worsens, develops fever, persistent and uncontrolled vomiting, or for any new symptoms or concerns. Patient Language: Citizen Of [place] Prescriptions: New ondansetron 4 mg tablet,disintegrating 4 mg PO Q8H PRN (Reason: nausea and vomiting) Qty: 7 0RF No Action anastrozole 1 mg tablet 1 mg PO DAILY Qty: 1 0RF prochlorperazine maleate 10 mg tablet 10 mg PO Q8H PRN (Reason: nausea and vomiting) Qty: 1 0RF docusate sodium 100 mg capsule 100 mg PO DAILY PRN (Reason: constipation) Qty: 1 0RF fluticasone propionate [Flonase Allergy Relief] 50 mcg/actuation spray,suspension 2 spray intranasal DAILY Qty: 16 2RF Rx Instructions: administer into each nostril gabapentin 300 mg capsule 300 mg PO BID Rx Instructions: 300 mg in the morning. 600mg in the evening Gemtesa 75 mg tablet 75 mg PO DAILY dicyclomine 20 mg tablet 20 mg PO QID PRN (Reason: abdominal pain) Verzenio 150 mg tablet 150 mg PO BID omeprazole 40 mg capsule,delayed release(DR/EC) See Rx Instructions .ROUTE .COMPLEX Qty: 90 0RF Dose Instruction: TAKE 1 CAPSULE BY MOUTH DAILY FOR 8 WEEKS Rx Instructions: TAKE 1 CAPSULE BY MOUTH DAILY FOR 8 WEEKS duloxetine 60 mg capsule,delayed release(DR/EC) See Rx Instructions .ROUTE .COMPLEX Qty: 90 0RF Dose Instruction: TAKE 1 CAPSULE BY MOUTH DAILY Rx Instructions: TAKE 1 CAPSULE BY MOUTH DAILY carvedilol phosphate 40 mg capsule, ER multiphase 24 hr See Rx Instructions .ROUTE .COMPLEX Qty: 90 1RF Dose Instruction: TAKE 1 CAPSULE BY MOUTH DAILY WITH FOOD Rx Instructions: TAKE 1 CAPSULE BY MOUTH DAILY WITH FOOD trazodone 100 mg tablet 200 mg PO HS Qty: 180 1RF pravastatin 40 mg tablet 40 mg PO DAILY Qty: 90 1RF dextroamphetamine-amphetamine [Adderall] 15 mg tablet 15 mg PO BID Qty: 60 0RF Rx Instructions: administer doses at least 4-6 hours apart Follow-up/Referrals: Maria Elena Garcia APRN [Primary Care Provider] - Stand Alone Forms: Work/School Release IP Time of Disposition: 16:45
[2025-04-02 09:09] LABS: Alanine Aminotransferase 21 U/L (6-35); Albumin Level 4.3 g/dL (3.5-5.1); Alkaline Phosphatase 66 U/L (38-126); Anion Gap 9 mmol/L (4-12); Aspartate Amino Transferase 39 U/L (14-36); Bilirubin,Total 0.9 mg/dL (0.2-1.3); Blood Urea Nitrogen 12 mg/dL (7-17); Calcium 9.5 mg/dL (8.4-10.2); Carbon Dioxide 25 mmol/L (22-30); Chloride 104 mmol/L (98-107); Estimated CRCL calculation 57 ml/min; Estimated Glomerular Filt Rate > 60; Glucose 144 mg/dL (65-110); Lipase 19 U/L (23-300); Potassium 3.4 mmol/L (3.4-5.0); Sodium 138 mmol/L (137-145)
--- OUTSIDE RECORDS SUMMARY | 2025-04-02 09:25 | XMS_ITS | Referral Summary ---
Author Organization [facility] Address [address] [place] [address] Care Team Providers Care Commodity Industry Analyst Name Role Phone Yasir Gonzalez MD Unavailable Aft, Ciara Dorsey MD PhD Unavailable Monika Bryant MD Unavailable Yeny Oliveira PhD Unavailable [phone] Yossi Reaves MD Primary Care Provider [phone] Jessenia Vaughn HAM DOCTOR Unavailable [phone] Encounters Date Type Department Care Team Description 03/20/2025 Telephone [facility] Oncology [address] [place] [address] [address] [place] [address] Liza Porras, RN apt cancellation 03/20/2025 Orders Only [facility] Oncology [address] [place] [address] 8 [place] [address] Liza Porras, RN 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 breast in female, estrogen receptor positive (HCC) (Primary Dx) 03/05/2025 Results Follow-Up [facility] Oncology [address] [place] [address] 6 [place] [address] Devon Cabrera NP Dexa Axial Skeleton Bone Density 1 or 2 Site 02/28/2025 3:10 PM CDT Clinical Support [facility] [address] [facility] 5th [place] [address] [place] [address] Postmenopausal (Primary Dx); 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 breast in female, estrogen receptor positive (HCC); half-way (current) use of aromatase inhibitors; Encounter for monitoring zoledronic acid therapy 01/29/2025 Telephone [facility] Oncology [address] [place] [address] from Last [...] simethicone-dip henhydramine-li docaine-nystati n (MAGIC MOUTHWASH) suspension 8-5-1-1Indicati ons:Mouth sores Swish and swallow 10 mL [...] from 02/24/2022:Stage IIA(cT2, cN0(f), cM0, G3, ER+, WA+, HER2-) - Signed by Ilda Jenkins MD on 11/25/2022 Pathologic stage from 10/05/2022:No Stage Recommended(ypT1a, pN1mi(sn), cM0, GX, ER+, WA+, HER2-) - Signed by Ilda Jenkins MD on 11/25/2022 Overview (03/08/2022): Added automatically from request for surgery [id number] Assessment & Plan (05/03/2022 12:59 PM CDT): [...] on file Legal Sex Female 2:50 AM PASSENGER SERVICE SUPERVISOR Gender Identity Female 03/11/2022 12:06 PM CDT Sexual Orientation Straight 03/11/2022 12 :06 PM CDT Last Filed Vital Signs Vital Sign Reading Time Taken Comments Blood Pressure 112/72 12/19/2024 10:22 AM PASSENGER SERVICE SUPERVISOR Pulse 71 12/19/2024 10:22 AM PASSENGER SERVICE SUPERVISOR Temperature 36.9 C (98.4 F) 12/19/2024 10:22 AM PASSENGER SERVICE SUPERVISOR Respiratory Rate 16 12/19/2024 10:22 AM PASSENGER SERVICE SUPERVISOR Oxygen Saturation 98% 12/19/2024 10:22 AM PASSENGER SERVICE SUPERVISOR Inhaled Oxygen Concentration - - Weight 80.3 kg (177 lb) 12/19/2024 10:22 AM PASSENGER SERVICE SUPERVISOR Height 165.1 cm (5' 5 ) 07/26/2024 8:36 AM CDT Body Mass Index 29.45 07/26/2024 8:36 AM CDT Plan of Treatment Not on file Medical Devices Implanted Type Area Head Of Sales Device Identifier Shelf Expiration Date Model / Serial / Lot Bard Peripheral Vascular Ultraclip Bard 17ga 10cm 2 Trigger Permanent Ultrasound [id number] - [id number] Implanted:Qty: 1 on 02/24/2022 at [facility] Bard Peripheral Vascular [id number] / / Bard Peripheral Vascular Powerport Clearvue Airguard 8fr 1 Lumen Lightweight Intermediate Latex Free [id number] - [id number] Implanted:Qty: 1 on 03/16/2022 by Aft, Ciara Dorsey MD PhD at [facility] Right: Chest Bard Peripheral Vascular 05/13/2023 [id number] / / [id number] Bard Peripheral Vascular Ghiatas 20ga 15cm 5cm Beaded Needle Breast Wire Localization [id number] - [id number] Implanted:Qty: 1 on 10/05/2022 at [facility] Left: Breast Bard Peripheral Vascular [id number] / / Procedures Procedure Name Priority Date/Time Associated Diagnosis Comments DEXA AXIAL SKELETON BONE DENSITY 1 OR MORE SITES Schedule Routine, Read Routine (OP Routine) 02/28/2025 3:38 PM CDT 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 breast in female, estrogen receptor positive (HCC) half-way (current) use of aromatase inhibitors DIAGNOSTIC MAMMOGRAM [...] Bone mineral density was performed on a HoloInPronto Discovery Densitometer. Based on machine cross-calibration and [...] by the International Society of Clinical Densitometry. [id number] us Yasir Gonzalez MD IMG DXA PROCEDURE [...] Most Recently Relevant to Health Maintenance Insurance [facility] Advance Directives For more information, please contact: [phone] * Full Code (Latest Code Status on File) Date Activated Date Inactivated Comments 05/01/2022 8:25 PM 05/03/2022 7:39 PM Care Teams Commodity Industry Analyst Relationship Specialty Start Date End Date Yossi Reaves MD [email or web address] [place] [address] PCP - General Family Practice 09/02/23 Yasir Gonzalez MD [address] [place] [address] Consulting Physician Medical Oncology 03/08/22 Aft, Ciara Dorsey MD PhD [address] [place] [address] Surgeon Surgical Oncology 03/16/22 Monika Bryant MD [address] [place] [address] Radiation Oncologist Radiation Oncology 11/25/22 Yeny Oliveira, PhD [address] [place] [address] Nurse Practitioner Radiation Oncology 02/07/23 Jessenia Vaughn, HAYLEY [address] [place] [address] Nurse Practitioner Nurse Practitioner 09/05/23
--- OUTSIDE RECORDS SUMMARY | 2025-04-02 09:25 | XMS_ITS | Encounter Summary ---
Author Organization [facility] Address [address] [facility] [place] [address] Care Team Providers Care Rn Tele Name Role Phone Wei Swan MD Primary Care Provider [phone] Encounter Details Date Type Department Care Team (Late st Contact Info) Description 06/19/2020 Lab Requisition [facility] Care DermPath Lab [address] [facility] [place] [address] Phillip Sims MD [address] [place] [address] Social History Tobacco Use Types Packs/Day Years Used Date Smoking Tobacco: Never Smokeless Tobacco: Never Alcohol Use Standard Drinks/Week Comments Yes 0 (1 standard drink = 0.6 oz pur e alcohol) Comments Unknown Sex and Gender Information Value Date Recorded Sex Assigned at Not on file Legal Sex Female 5:29 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 Gender Identity Not on file Sexual Orientation Not on file documented as of this encounter Plan of Treatment Not on file documented as of this encounter Procedures Procedure Name Priority Date/Time Associated Diagnosis Comments DERMATOPATHOLOGY Routine 06/18/2020 12:0 0 AM CDT documented in this encounter Results * DERMATOPATHOLOGY (06/18/2020 12:00 AM CDT) Case Report Dermatopathology Report Case: [id number] Authorizing Provider: Phillip Sims MD Collected: 06/18/2020 12:00 AM Ordering Location: [facility] Care DermPath Lab Received: 06/19/2020 12:27 PM [...] specimen consists of a shave biopsy measuring [id number]. Jar 0. Specimen B: Received is one formalin filled container labeled with the patient's name and designated dependent left lat breast. The specimen consists of a shave biopsy (2 pieces) measuring [id number] & [id number]. Jar 0. 0 12:34 PM CDT DERMATOPATHOLOGY [...] characteristic determined by the Dermatopathology Laboratory at [facility], directed by Dr. Deepthi Larson. These tests need not be, and therefore are not, approved by the [place] Food and Drug Administration. The tests are used for clinical purposes. Billing Codes Specimen Charges Stain Charges 74163 91354 1 1 [id number] 49142 1 1 0 12:34 PM CDT DERMATOPATHOLOGY LABORATORY Embedded Images 0 12:34 PM CDT DERMATOPATHOLOGY LABORATORY Pathology/Cytology TISSUE SPECIMEN FROM SKIN / Unknown 06/18/2020 06/19/2020 12:27 PM CDT Miscellaneous samples (specimen) TISSUE SPECIMEN FROM SKIN / Unknown 06/18/2020 06/19/2020 12:27 PM CDT Phillip Sims MD LAB - PATHOLOGY/CYTOLOGY ORD ERABLES Final Result DERMATOPATHOLOGY LABORATORY [facility] - Department of Dermatology [facility]/[address] [phone] documented in this encounter Visit Diagnoses Not on filedocumented in this encounter Care Teams Rn Tele Relationship Specialty Start Date End Date Wei Swan MD [address] [place] [address] PCP - General 06/28/17 documented as of this encounter
--- OUTSIDE RECORDS SUMMARY | 2025-04-02 09:25 | XMS_ITS | Encounter Summary ---
Author Organization [facility] Address [address] [place] [address] Care Team Providers Care Log Chipper Name Role Phone Wei Swan MD Primary Care Provider [phone] Reason for Visit * Diagnostic Imaging (Routine) - Closed Specialty Diagnoses / Procedures Referred By Contac t Referred To Contact Procedures Breast Imaging Screening Outside Reference Aft, Ciara Dorsey MD PhD [address] [place] [address] Phone: tel: fax: Referral ID Status Reason Start Date Expiration Date Visits Re quested Visits Authorized [id number] Closed 01/26/2022 02/25/2023 1 1 Encounter Details Date Type Department Care Team (Late st Contact Info) Description 07/07/2016 Hospital Encounter [facility] [address] [place], [place] [id number] Social History Tobacco Use Types Packs/Day Years [...] on file Legal Sex Female 2:50 AM SECTION WEAVER Gender Identity Female 03/11/2022 12:06 PM [...] and have not been reviewed by [facility] Radiology. There will be no report generated by a [facility] Radiologist. Narrative [facility]_M[facility]MO[facility] - 01/26/2022 3:01 PM CDT EXAMINATION: Images For Reference Purposes Only us Ciara Martinez MD PhD IMG MAMMO PROCEDURES Final Result [facility] documented in this encounter Visit Diagnoses Not on filedocumented in this encounter Additional Health Concerns Infection Onset Date Last Indicated Resolved Time COVID: Suspected 05/01/2022 05/01/2022 05/01/2022 4:59 AM CDT documented as of this encounter Care Teams Log Chipper Relationship Specialty Start Date End Date Wei Swan MD [address] [facility] [address] [place] [address] PCP - General 02/22/13 01/13/22 documented as of this encounter
--- OUTSIDE RECORDS SUMMARY | 2025-04-02 09:25 | XMS_ITS | Encounter Summary ---
Author Organization [facility] Address [address] [place] [address] Care Team Providers Care Dog Obedience Instructor Name Role Phone Unavailable Primary Care Provider Unavailabl e Encounter Details Date Type Department Care Team (Latest Contact Info) Description 06/08/1999 Outpatient Historical 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
--- OUTSIDE RECORDS SUMMARY | 2025-04-02 09:25 | XMS_ITS | Encounter Summary ---
Author Organization [facility] Healthcare Address [address] [place] [address] Care Team Providers Care Hull Builder Name Role Phone Wei Swan MD Primary Care Provider [phone] Reason for Visit * Diagnostic Imaging (Routine) - Closed Specialty Diagnoses / Procedures Referred By Contac t Referred To Contact Procedures Breast Imaging Diagnostic Outside Reference Aft, Ciara Dorsey MD PhD [address] [place] [address] Phone: tel: fax: Referral ID Status Reason Start Date Expiration Date Visits Re quested Visits Authorized [id number] Closed 01/26/2022 02/25/2023 1 1 Encounter Details Date Type Department Care Team (Late st Contact Info) Description 07/25/2017 Hospital Encounter [facility] [address] [place], [place] [id number] Social History Tobacco Use Types Packs/Day Years [...] on file 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 There will be no report generated by a [facility] Radiologist. Narrative [facility]_MAMMO_[facility] - 01/26/2022 [...] documented as of this encounter Care Teams Hull Builder Relationship Specialty Start Date End Date Wei Swan MD [address] [facility] [address] [place] [address] PCP - General 02/22/13 01/13/22 documented as of this encounter
--- OUTSIDE RECORDS SUMMARY | 2025-04-02 09:25 | XMS_ITS | Encounter Summary ---
Author Organization [facility] Address 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
--- OUTSIDE RECORDS SUMMARY | 2025-04-02 09:25 | XMS_ITS | Encounter Summary ---
Author Organization [facility] Healthcare Address [address] [place] [address] Care Team Providers Care Release And Technical Records Clerk Name Role Phone Wei Swan MD Primary Care Provider [phone] Reason for Visit * Diagnostic Imaging (Routine) - Closed Specialty Diagnoses / Procedures Referred By Contac t Referred To Contact Procedures Breast Imaging US Outside Reference Aft, Ciara Dorsey MD PhD [address] [place] [address] Phone: tel: fax: Referral ID Status Reason Start Date Expiration Date Visits Re quested Visits Authorized [id number] Closed 01/26/2022 02/25/2023 1 1 Encounter Details Date Type Department Care Team (Late st Contact Info) Description 07/25/2017 12:05 AM CDT Hospital Encounter [facility] Radiology [facility] [address] [place] [id number] Social History Tobacco Use Types Packs/Day [...] on file 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 There will be no report generated by a [facility] Radiologist. Narrative RAD_MAMMO[facility] - 01/26/2022 [...] documented as of this encounter Care Teams Release And Technical Records Clerk Relationship Specialty Start Date End Date Wei Swan MD [address] [facility] [address] [address] [address] [facility] [address] [place] [address] PCP - General 02/22/13 01/13/22 documented as of this encounter
--- OUTSIDE RECORDS SUMMARY | 2025-04-02 09:25 | XMS_ITS | Encounter Summary ---
Author Organization [facility] Address [address] [place] [address] Care Team Providers Care Greenhouse Worker Name Role Phone Unavailable Primary Care Provider Unavailabl e Encounter Details Date Type Department Care Team (Latest Contact Info) Description 08/11/1999 Outpatient Historical [facility] Clinton Mota MD NO ADDRESS ON FILE Female infertility associated with anovulation (Primary Dx) Social History Tobacco Use Types Packs/Day Years Used Date Smoking Tobacco: Never Assessed Comments Unknown Sex and Gender Information Value Date Recorded Sex Assigned at Not on file Legal Sex Female 4:53 AM CONSTRUCTION RECRUITER Gender Identity Not on file Sexual Orientation Not on file documented as of this encounter Plan of Treatment Not on file documented as of this encounter Visit Diagnoses Diagnosis 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
--- OUTSIDE RECORDS SUMMARY | 2025-04-02 09:25 | XMS_ITS | Encounter Summary ---
Author Organization [facility] Address 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
--- OUTSIDE RECORDS SUMMARY | 2025-04-02 09:25 | XMS_ITS | Encounter Summary ---
Author Organization [facility] Healthcare Address [address] [place] [address] Care Team Providers Care Area Intelligence Technician Name Role Phone Wei Swan MD Primary Care Provider [phone] Reason for Visit * Diagnostic Imaging (Routine) - Closed Specialty Diagnoses / Procedures Referred By Contac t Referred To Contact Procedures Breast Imaging Screening Outside Reference Aft, Ciara Dorsey MD PhD [address] [place] [address] Phone: tel: fax: Referral ID Status Reason Start Date Expiration Date Visits Re quested Visits Authorized [id number] Closed 01/26/2022 02/25/2023 1 1 Encounter Details Date Type Department Care Team (Late st Contact Info) Description 08/15/2020 Hospital Encounter [facility] Radiology [facility] [address] [place], [place] [id number] Social History Tobacco Use Types Packs/Day Years [...] on file Legal Sex Female 2:50 AM PATIENT CASE COORDINATOR Gender Identity Female 03/11/2022 12:06 PM CDT [...] not been reviewed by [facility] Radiology. There will be no report generated by a [facility] Radiologist. Narrative [facility]MAMMO[facility] - 01/26/2022 2:57 PM CDT EXAMINATION: Images For Reference Purposes Only us Ciara Martinez MD PhD IMG MAMMO PROCEDURES Final Result [facility] documented in this encounter Visit Diagnoses Not on filedocumented in this encounter Additional Health Concerns Infection Onset Date Last Indicated Resolved Time COVID: Suspected 05/01/2022 05/01/2022 05/01/2022 4:59 AM CDT documented as of this encounter Care Teams Area Intelligence Technician Relationship Specialty Start Date End Date Wei Swan MD [address] [facility] [address] [place] [address] PCP - General 02/22/13 01/13/22 documented as of this encounter
--- OUTSIDE RECORDS SUMMARY | 2025-04-02 09:25 | XMS_ITS ---
Author Organization [facility] Address [address] [place] [address] Care Team Providers Care Die Cutter Name Role Phone Yasir Gonzalez MD Unavailable Aft, Ciara Dorsey MD PhD Unavailable Monika Bryant MD Unavailable Yeny Oliveira PhD Unavailable [phone] Yossi Reaves MD Primary Care Provider [phone] Jessenia Vaughn FEED CRUSHER Unavailable [phone] Active Problems Problem Noted Date Diagnosed Date [...] (03/08/2022): Added automatically from request for surgery [id number] Assessment & Plan (05/03/2022 12:59 PM CDT): [...]
--- OUTSIDE RECORDS SUMMARY | 2025-04-02 09:25 | XMS_ITS | Clinical Summary ---
Author Organization [facility] Address [address] [place] [address] Care Team Providers Care Choir Teacher Name Role Phone Yasir Gonzalez MD Unavailable Aft, Ciara Dorsey MD PhD Unavailable [phone] Monika Bryant MD Unavailable Yeny Oliveira PhD Unavailable [phone] Yossi Reaves MD Primary Care Provider [phone] Jessenia Vaughn PAPER REELER Unavailable [phone] Allergies Active Allergy Reactions Criticality Noted Date [...] simethicone-dip henhydramine-li docaine-nystati n (MAGIC MOUTHWASH) suspension 4-3-0-1Indicati ons:Mouth sores Swish and swallow 10 mL [...] from 02/24/2022:Stage IIA(cT2, cN0(f), cM0, G3, ER+, IA+, HER2-) - Signed by Ilda Jenkins MD on 11/25/2022 Pathologic stage from 10/05/2022:No Stage Recommended(ypT1a, pN1mi(sn), cM0, GX, ER+, IA+, HER2-) - Signed by Ilda Jenkins MD on 11/25/2022 Overview (03/08/2022): Added automatically from request for surgery [id number] Assessment & Plan (05/03/2022 12:59 PM CDT): [...] Type Department Care Team Description 03/20/2025 Telephone [facility] Oncology [facility] [facility] Floor [address] [place] [address] Liza Porras RN apt cancellation 03/20/2025 Orders Only [facility] Oncology [address] [facility] Floor [address] [place] [address] Liza Porras RN 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 breast in female, estrogen receptor positive (HCC) (Primary Dx) 03/05/2025 Results Follow-Up [facility] Oncology [address] [facility] Floor [address] [place] [address] Devon Cabrera NP Dexa Axial Skeleton Bone Density 1 or 2 Site 02/28/2025 3:10 PM CDT Clinical Support [facility] [address] [facility] 5th [place] [address] [place] [address] Postmenopausal (Primary Dx); 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 breast in female, estrogen receptor positive (HCC); alf (current) use of aromatase inhibitors; Encounter for monitoring zoledronic acid therapy 01/29/2025 Telephone [facility] Oncology [address] [place] [address] from Last [...] on file 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 Gender Identity Female 03/11/2022 12:06 [...] Comments Blood Pressure 112/72 12/19/2024 10:22 AM SHAVING MACHINE OPERATOR Pulse 71 12/19/2024 10:22 AM SHAVING MACHINE OPERATOR Temperature 36.9 C (98.4 F) 12/19/2024 10:22 AM SHAVING MACHINE OPERATOR Respiratory Rate 16 12/19/2024 10:22 AM SHAVING MACHINE OPERATOR Oxygen Saturation 98% 12/19/2024 10:22 AM SHAVING MACHINE OPERATOR Inhaled Oxygen Concentration - - Weight 80.3 kg (177 lb) 12/19/2024 10:22 AM SHAVING MACHINE OPERATOR Height 165.1 cm (5' 5 ) 07/26/2024 [...] history exists Medical Devices Implanted Type Area Powder Expert Device Identifier Shelf Expiration Date Model / Serial / Lot Bard Peripheral Vascular Ultraclip Bard 17ga 10cm 2 Trigger Permanent Ultrasound [id number] - [id number] Implanted:Qty: 1 on 02/24/2022 at [facility] Bard Peripheral Vascular [id number] / / Bard Peripheral Vascular Powerport Clearvue Airguard 8fr 1 Lumen Lightweight Intermediate Latex Free [id number] - [id number] Implanted:Qty: 1 on 03/16/2022 by Aft, Ciara Dorsey MD PhD at [facility] Right: Chest Bard Peripheral Vascular 05/13/2023 [id number] / / [id number] Bard Peripheral Vascular Ghiatas 20ga 15cm 5cm Beaded Needle Breast Wire Localization [id number] - [id number] Implanted:Qty: 1 on 10/05/2022 at [facility] Left: Breast Bard Peripheral Vascular [id number] / / Procedures Procedure Name Priority Date/Time Associated Diagnosis Comments DEXA AXIAL SKELETON BONE DENSITY 1 OR MORE SITES Schedule Routine, Read Routine (OP Routine) 02/28/2025 3:38 PM CDT 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 breast in female, estrogen receptor positive (HCC) terminal computer operator (current) use of aromatase inhibitors DIAGNOSTIC MAMMOGRAM [...] Bone mineral density was performed on a HoloAdcrowd retargeting Discovery Densitometer. Based on machine cross-calibration and [...] by the International Society of Clinical Densitometry. [id number] us Yasir Gonzalez MD IM DXA PROCEDURE [...] Most Recently Relevant to Health Maintenance Insurance [facility] Advance Directives For more information, please contact: [phone] * Full Code (Latest Code Status on File) Date Activated Date Inactivated Comments 05/01/2022 8:25 PM 05/03/2022 7:39 PM Care Teams Choir Teacher Relationship Specialty Start Date End Date oYssi Reaves MD [address] [place] [address] PCP - General Family Practice 09/02/23 Yasir Gonzalez MD [address] [place] [address] Consulting Physician Medical Oncology 03/08/22 Aft, Ciara Dorsey MD PhD [address] [place] [address] Surgeon Surgical Oncology 03/16/22 Monika Bryant MD [address] [place] [address] Radiation Oncologist Radiation Oncology 11/25/22 Yeny Oliveira, PhD [address] [place] [address] Nurse Practitioner Radiation Oncology 02/07/23 Jessenia Vaughn, H[place] [address] [place] [address] Nurse Practitioner Nurse Practitioner 09/05/23
--- OUTSIDE RECORDS SUMMARY | 2025-04-02 09:25 | XMS_ITS | Encounter Summary ---
Author Organization [facility] Address [address] [place] [address] Care Team Providers Care Forensics Analyst Name Role Phone Unavailable Primary Care Provider Unavailabl e Encounter Details Date Type Department Care Team (Latest Contact Info) Description 12/01/1999 Outpatient Historical [facility] Clinton Mota MD NO ADDRESS ON FILE Female infertility of unspecified origin (Primary Dx) Social History Tobacco Use Types Packs/Day Years Used Date Smoking Tobacco: Never Assessed Comments Unknown Sex and Gender Information Value Date Recorded Sex Assigned at Not on file Legal Sex Female 4:53 AM FOCUSER Gender Identity Not on file Sexual Orientation Not on file documented as of this encounter Plan of Treatment Not on file documented as of this encounter Visit Diagnoses Diagnosis Female infertility of unspecified origin- Primary documented in this encounter
--- OUTSIDE RECORDS SUMMARY | 2025-04-02 09:25 | XMS_ITS | Encounter Summary ---
Author Organization [facility] Address [address] [place] [address] Phone Care Team Providers Care Steel Wool Machine Operator Name Role Phone Yasir Gonzalez MD Unavailable Aft, Ciara Dorsey MD PhD Unavailable [phone] Monika Bryant MD Unavailable Yeny Oliveira PhD Unavailable [phone] Yossi Reaves MD Primary Care Provider [phone] BAILIFF Unavailable [phone] Encounter Details Date Type Department Care Team [...] on file Legal Sex Female 2:50 AM STAGE SET UP WORKER Gender Identity Female 03/11/2022 12:06 PM [...] on filedocumented in this encounter Care Teams Steel Wool Machine Operator Relationship Specialty Start Date End Date Yossi Reaves MD [address] [facility] [address] [place] [address] PCP - General Family Practice 09/02/23 Yasir Gonzalez MD [address] [place] [address] Consulting Physician Medical Oncology 03/08/22 Aft, Ciara Dorsey MD PhD [address] [place] [address] Surgeon Surgical Oncology 03/16/22 Monika Bryant MD [address] [facility] [address] [place] [address] Radiation Oncologist Radiation Oncology 11/25/22 Yeny Oliveira, PhD [address] [facility] [address] [place] [address] Nurse Practitioner Radiation Oncology 02/07/23 Jessenia Vaughn NP [facility] [place] [place] [address] Nurse Practitioner Nurse Practitioner 09/05/23 documented as of this encounter
--- OUTSIDE RECORDS SUMMARY | 2025-04-02 09:25 | XMS_ITS | Encounter Summary ---
Author Organization [facility] Address [address] [place] [address] Care Team Providers Care First Coat Sander Name Role Phone Unavailable Primary Care Provider Unavailabl e Encounter Details Date Type Department Care Team (Latest Contact Info) Description 03/06/2000 Outpatient Historical [facility] Clinton Mota MD NO ADDRESS ON FILE Female infertility of unspecified origin (Primary Dx) Social History Tobacco Use Types Packs/Day Years Used Date Smoking Tobacco: Never Assessed Comments Unknown Sex and Gender Information Value Date Recorded Sex Assigned at Not on file Legal Sex Female 4:53 AM COMMUNITY RELATIONS MANAGER Gender Identity Not on file Sexual Orientation Not on file documented as of this encounter Plan of Treatment Not on file documented as of this encounter Visit Diagnoses Diagnosis Female infertility of unspecified origin- Primary documented in this encounter
--- OUTSIDE RECORDS SUMMARY | 2025-04-02 09:25 | XMS_ITS | Encounter Summary ---
Author Organization [facility] Address [address] [place] [address] Care Team Providers Care Cisco Network Engineer Name Role Phone Unavailable Primary Care Provider Unavailabl e Encounter Details Date Type Department Care Team (Latest Contact Info) Description 03/18/1999 Outpatient Historical [facility] Clinton Mota MD NO ADDRESS ON FILE Female infertility associated with anovulation (Primary Dx) Social History Tobacco Use Types Packs/Day Years Used Date Smoking Tobacco: Never Assessed Comments Unknown Sex and Gender Information Value Date Recorded Sex Assigned at Not on file Legal Sex Female 4:53 AM ROTATING EQUIPMENT ENGINEER Gender Identity Not on file Sexual Orientation Not on file documented as of this encounter Plan of Treatment Not on file documented as of this encounter Visit Diagnoses Diagnosis 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
--- OUTSIDE RECORDS SUMMARY | 2025-04-02 09:25 | XMS_ITS | Encounter Summary ---
Author Organization [facility] Address [address] [place] [address] Phone Care Team Providers Care Sanitation Supervisor Name Role Phone Yasir Gonzalez MD Unavailable AftCiara MD PhD Unavailable [phone] Monika Bryant MD Unavailable Yeny Oliveira PhD Unavailable [phone] Yossi Reaves MD Primary Care Provider [phone] Jessenia Vaughn FUSE COILER Unavailable [phone] Encounter Details Date Type Department Care Team (Late st Contact Info) Description 03/05/2025 Results Follow-Up [facility] Oncology [address] [facility] [address] [place] [address] Devon Cabrera NP [address] [place] [address] Dexa Axial Skeleton Bone Density 1 or [...] on file Legal Sex Female 2:50 AM 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 ENGINEER Gender Identity Female 03/11/2022 12:06 PM CDT Sexual Orientation Straight 03/11/2022 12 :06 PM CDT documented as of this encounter Plan of Treatment Not on file documented as of this encounter Visit Diagnoses Not on filedocumented in this encounter Care Teams Sanitation Supervisor Relationship Specialty Start Date End Date Yossi Reaves MD [address] [place] [address] PCP - General Family Practice 09/02/23 Yasir Gonzalez MD [address] [place] [address] Consulting Physician Medical Oncology 03/08/22 Aft, Ciara Dorsey MD PhD [address] [address] Surgeon Surgical Oncology 03/16/22 Monika Bryant MD [address] [facility] [address] [place] [address] Radiation Oncologist Radiation Oncology 11/25/22 Yeny Oliveira, PhD [address] [facility] [address] [place] [address] Nurse Practitioner Radiation Oncology 02/07/23 Jessenia Vaughn NP [address] [place] [address] Nurse Practitioner Nurse Practitioner 09/05/23 documented as of this encounter
--- OUTSIDE RECORDS SUMMARY | 2025-04-02 09:25 | XMS_ITS | Encounter Summary ---
Author Organization [facility] Address 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
--- OUTSIDE RECORDS SUMMARY | 2025-04-02 09:25 | XMS_ITS | Encounter Summary ---
Author Organization [facility] Address 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
--- OUTSIDE RECORDS SUMMARY | 2025-04-02 09:25 | XMS_ITS | Encounter Summary ---
Author Organization [facility] Address [address] [place] [address] Phone Care Team Providers Care Miscellaneous Machine Operator Name Role Phone Yasir Gonzalez MD Unavailable Aft, Ciara Dorsey MD PhD Unavailable [phone] Monika Bryant MD Unavailable Yeny Oliveira PhD Unavailable Yossi Reaves MD Primary Care Provider [phone] Jessenia Vaughn CASE MANAGEMENT DIRECTOR Unavailable [phone] Encounter Details Date Type Department Care Team [...] on file Legal Sex Female 2:50 AM SOCIAL PROBLEMS SPECIALIST Gender Identity Female 03/11/2022 12:06 PM [...] on filedocumented in this encounter Care Teams Miscellaneous Machine Operator Relationship Specialty Start Date End Date Yossi Reaves MD [address] [place] [address] PCP - General Family Practice 09/02/23 Yasir Gonzalez MD [address] [place] [address] Consulting Physician Medical Oncology 03/08/22 Aft, Ciara Dorsey MD PhD [address] [place] [address] Surgeon Surgical Oncology 03/16/22 Monika Bryant MD [address] [place] [address] Radiation Oncologist Radiation Oncology 11/25/22 Yeny Oliveira, PhD [address] [place] [address] Nurse Practitioner Radiation Oncology 02/07/23 Jessenia Vaughn NP [address] [place] [address] Nurse Practitioner Nurse Practitioner 09/05/23 documented as of this encounter
--- OUTSIDE RECORDS SUMMARY | 2025-04-02 09:25 | XMS_ITS | Encounter Summary ---
Author Organization [facility] Address [address] [place] [address] Care Team Providers Care Face Cleaner Name Role Phone Unavailable Primary Care [...] on file Legal Sex Female 4:53 AM HOSPITAL UNIT COORDINATOR Gender Identity Not on file Sexual Orientation Not on file documented as of this encounter Plan of Treatment Not on file documented as of this encounter Visit Diagnoses Diagnosis Unspecified symptom associated with female genital organs- Primary documented in this encounter
--- OUTSIDE RECORDS SUMMARY | 2025-04-02 09:25 | XMS_ITS | Encounter Summary ---
Author Organization [facility] Address [address] [place] [address] Care Team Providers Care Equipment Operator Name Role Phone Unavailable Primary Care Provider [...] on file Legal Sex Female 4:53 AM COAT CHECK ATTENDANT Gender Identity Not on file Sexual Orientation Not on file documented as of this encounter Plan of Treatment Not on file documented as of this encounter Visit Diagnoses Diagnosis 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
--- OUTSIDE RECORDS SUMMARY | 2025-04-02 09:25 | XMS_ITS | Clinical Summary ---
Author Organization [facility] [employer] Address [address] [place] [address] Care Team Providers Care Assistant Director Of Plant Operations Name Role Phone Wei Swan MD Primary Care Provider Source Comments [facility] [employer]non-owned Affiliates and Associated Physician Practices is amultiple site organization consisting of ambulatory clinics and hospital sitesin [place], [place], [place] and [place]. This disclosure is being madepursuant to the Care Everywhere program and may not contain all information available regarding this patient. Last updated 18.[facility] [employer] [facility] [employer] Allergies Active Allergy Reactions Criticality Noted Date [...] on file Legal Sex Female 5:29 PM TELEGRAPH EQUIPMENT MAINTAINER Gender Identity Not on file Sexual Orientation [...] complete this topic Insurance [employer] Care Teams Assistant Director Of Plant Operations Relationship Specialty Start Date End Date Wei Swan MD [address] [place] [address] PCP - General 06/28/17
--- OUTSIDE RECORDS SUMMARY | 2025-04-02 09:25 | XMS_ITS | Encounter Summary ---
Author Organization [facility] Address [address] [place] [address] Phone Care Team Providers Care Metal Cleaner Name Role Phone Giovanni Gutierrez DO Primary Care Provider [phone] Jessenia Vaughn WASTE COTTON CLEANER Unavailable [phone] Yasir Gonzalez MD Unavailable Aft, Ciara Dorsey MD PhD Unavailable [phone] Monika Bryant MD Unavailable Nenita Rivera DPT Unavailable Yeny Oliveira PhD Unavailable [phone] Yossi Reaves MD Primary Care Provider [phone] Jessenia Vaughn WASTE COTTON CLEANER Unavailable [phone] Encounter Details Date Type Department Care Team [...] on file Legal Sex Female 2:50 AM SALVAGER Gender Identity Female 03/11/2022 12:06 PM CDT [...] on filedocumented in this encounter Care Teams Metal Cleaner Relationship Specialty Start Date End Date Giovanni Gutierrez DO PCP - General Internal Medicine 01/14/22 05/11/23 Yossi Reaves MD [address] [facility] [address] [place] [address] PCP - General Family Practice 09/02/23 Jessenia Vaughn NP Nurse Practitioner Nurse Practitioner 01/14/22 Yasir Villeda MD [address] [place] [address] Consulting Physician Medical Oncology 03/08/22 AftCiara MD PhD [address] [facility] [place] [address] Surgeon Surgical Oncology 03/16/22 Monika Bryant MD [address] [facility] [address] [place] [address] Radiation Oncologist Radiation Oncology 11/25/22 Nenita Rivera DPT [address] [place] [address] Physical Therapist Physical Therapy 12/06/22 01/19/24 Yeny Oliveira, PhD [address] [place] [address] Nurse Practitioner Radiation Oncology 02/07/23 Jessenia Vaughn, HAYLEY [address] [place] [address] Nurse Practitioner Nurse Practitioner 09/05/23 documented as of this encounter
--- OUTSIDE RECORDS SUMMARY | 2025-04-02 09:25 | XMS_ITS | Encounter Summary ---
Author Organization [facility] Address 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
--- OUTSIDE RECORDS SUMMARY | 2025-04-02 09:25 | XMS_ITS | Encounter Summary ---
Author Organization [facility] Address [address] [place] [address] Care Team Providers Care Staff Electronic Warfare Officer Name Role Phone Wei Swan MD Primary Care Provider [phone] Reason for Visit * Diagnostic Imaging (Routine) - Closed Specialty Diagnoses / Procedures Referred By Contac t Referred To Contact Procedures Breast Imaging Screening Outside Reference Aft, Ciara Dorsey MD PhD [address] [place] [address] Phone: tel: fax: Referral ID Status Reason Start Date Expiration Date Visits Re quested Visits Authorized [id number] Closed 01/26/2022 02/25/2023 1 1 Encounter Details Date Type Department Care Team (Late st Contact Info) Description 07/14/2018 Hospital Encounter [facility] [address] [place], [place] [id number] Social History Tobacco Use Types Packs/Day Years [...] on file Legal Sex Female 2:50 AM CULINARY INTERN Gender Identity Female 03/11/2022 12:06 PM CDT [...] documented as of this encounter Care Teams Staff Electronic Warfare Officer Relationship Specialty Start Date End Date Wei Swan MD [address] [facility] [address] [place] [address] PCP - General 02/22/13 01/13/22 documented as of this encounter
--- OUTSIDE RECORDS SUMMARY | 2025-04-02 09:25 | XMS_ITS | Encounter Summary ---
Author Organization [facility] Address [address] [place] [address] Care Team Providers Care Allergist/Md Name Role Phone Unavailable Primary Care Provider [...] on file Legal Sex Female 4:53 AM DIE TRY OUT WORKER STAMPING Gender Identity Not on file Sexual Orientation Not on file documented as of this encounter Plan of Treatment Not on file documented as of this encounter Visit Diagnoses Diagnosis Investigation and testing for procreation management- Primary documented in this encounter
--- OUTSIDE RECORDS SUMMARY | 2025-04-02 09:25 | XMS_ITS | Clinical Summary ---
Author Organization [facility] Address [address] Robertn: Epic Prelude [place]T [place] [address] Care Team Providers Care Program Coordinator Executive Education Name Role Phone Unavailable Primary Care Provider Unavailabl e Social History Tobacco Use Types Packs/Day Years Used Date Smoking Tobacco: Never Assessed Comments Unknown Sex and Gender Information Value Date Recorded Sex Assigned at Not on file Legal Sex Female 4:53 AM DIRECTOR OF CARDIOLOGY SERVICE LINE Gender Identity Not on file Sexual Orientation [...]
--- OUTSIDE RECORDS SUMMARY | 2025-04-02 09:25 | XMS_ITS | Encounter Summary ---
Author Organization [facility] Address [address] [place] [address] Care Team Providers Care Analytical Data Miner Name Role Phone Wei Swan MD Primary Care Provider [phone] Reason for Visit * Diagnostic Imaging (Routine) - Closed Specialty Diagnoses / Procedures Referred By Contac t Referred To Contact Procedures Breast Imaging Screening Outside Reference Aft, Ciara Dorsey MD PhD [address] [place] [address] Phone: tel: fax: Referral ID Status Reason Start Date Expiration Date Visits Re quested Visits Authorized [id number] Closed 01/26/2022 02/25/2023 1 1 Encounter Details Date Type Department Care Team (Late st Contact Info) Description 07/17/2019 Hospital Encounter [facility]iology [facility] [address] [place], [place] [id number] Social History Tobacco Use Types Packs/Day Years [...] on file Legal Sex Female 2:50 AM CASE MANAGEMENT ASSISTANT Gender Identity Female 03/11/2022 12:06 PM CDT Sexual Orientation Straight 03/11/2022 12 :06 PM CDT documented as of this encounter Functional Status * Audit-C Score Answer Date of Assessment Author 1 11/25/2022 9:34 AM Krzyzstof Sun RN * Question Answer Date of [...] only and have not been reviewed by [facility]. There will be no report generated by a [facility] Radiologist. Narrative [facility] - 01/26/2022 2:57 PM CDT EXAMINATION: Images For Reference Purposes Only us Ciara Martinez MD PhD IMG MAMMO PROCEDURES Final Result [facility] documented in this encounter Visit Diagnoses Not on filedocumented in this encounter Additional Health Concerns Infection Onset Date Last Indicated Resolved Time COVID: Suspected 05/01/2022 05/01/2022 05/01/2022 4:59 AM CDT documented as of this encounter Care Teams Analytical Data Miner Relationship Specialty Start Date End Date Wei Swan MD [address] [facility] [address] [place] [address] PCP - General 02/22/13 01/13/22 documented as of this encounter
--- OUTSIDE RECORDS SUMMARY | 2025-04-02 09:25 | XMS_ITS | Encounter Summary ---
Author Organization [facility] Address [address] [place] [address] Phone Care Team Providers Care Lip Of Shank Cutter Name Role Phone Yasir Gonzalez MD Unavailable Aft, Ciara Dorsey MD PhD Unavailable [phone] Monika Bryant MD Unavailable Yeny Oliveira PhD Unavailable [phone] Yossi Reaves MD Primary Care Provider [phone] Jessenia Vaughn CHECK AIRMAN Unavailable [phone] Encounter Details Date Type Department Care Team [...] on file Legal Sex Female 2:50 AM FEATHER BONER Gender Identity Female 03/11/2022 12:06 PM CDT [...] on filedocumented in this encounter Care Teams Lip Of Shank Cutter Relationship Specialty Start Date End Date Yossi Reaves MD [address] [place] [address] PCP - General Family Practice 09/02/23 Yasir Gonzalez MD [address] [place] [address] Consulting Physician Medical Oncology 03/08/22 Aft, Ciara Dorsey MD PhD [address] [place] [address] Surgeon Surgical Oncology 03/16/22 Monika Bryant MD [address] [place] [address] Radiation Oncologist Radiation Oncology 11/25/22 Yeny Oliveira, PhD [address] [place] [address] Nurse Practitioner Radiation Oncology 02/07/23 Jessenia Vaughn NP [address] [place] [address] Nurse Practitioner Nurse Practitioner 09/05/23 documented as of this encounter
--- OUTSIDE RECORDS SUMMARY | 2025-04-02 09:25 | XMS_ITS | Encounter Summary ---
Author Organization [facility] Address [address] [place] [address] Care Team Providers Care Motel Front Desk Clerk Name Role Phone Unavailable Primary Care [...] on file Legal Sex Female 4:53 AM MANAGER MERCHANDISE Gender Identity Not on file Sexual Orientation Not on file documented as of this encounter Plan of Treatment Not on file documented as of this encounter Visit Diagnoses Diagnosis Endometriosis of fallopian tube- Primary documented in this encounter
--- OUTSIDE RECORDS SUMMARY | 2025-04-02 09:25 | XMS_ITS | Encounter Summary ---
Author Organization [facility] Address [address] [place] [address] Care Team Providers Care Marine Pilot Name Role Phone Wei Swan MD Primary Care Provider [phone] Reason for Visit * Diagnostic Imaging (Routine) - Closed Specialty Diagnoses / Procedures Referred By Contac t Referred To Contact Procedures Breast Imaging Screening Outside Reference Aft, Ciara Dorsey MD PhD [address] [place] [address] Phone: tel: fax: Referral ID Status Reason Start Date Expiration Date Visits Re quested Visits Authorized [id number] Closed 01/26/2022 02/25/2023 1 1 Encounter Details Date Type Department Care Team (Late st Contact Info) Description 07/11/[address] [facility] [address] [place], [place] [id number] Social History Tobacco Use Types Packs/Day Years [...] on file Legal Sex Female 2:50 AM BANANA CARRIER Gender Identity Female 03/11/2022 12:06 PM CDT [...] and have not been reviewed by [facility] Radiology. There will be no report generated by a [facility] Radiologist. Narrative [facility] [...] documented as of this encounter Care Teams Marine Pilot Relationship Specialty Start Date End Date Wei Swan MD [address] [facility] [address] [place] [address] PCP - General 02/22/13 01/13/22 documented as of this encounter
[2025-04-02] MEDS: SODIUM CHLORIDE 0.9% IV 1,000 ML 999 ML IV CONT ×3 (09:32→14:36)
[2025-04-02] MEDS: MORPHINE SULFATE (*CRX) 4 MG/ML INJ IV PUSH (09:32)
[2025-04-02] MEDS: ONDANSETRON INJ 4 MG/2 ML VIAL IV PUSH (09:32)
[2025-04-02] MEDS: ACETAMINOPHEN 500 MG TABLET 1000 MG PO (10:44)
[2025-04-02] MEDS: PANTOPRAZOLE 40 MG TABLET PO (10:44)
[2025-04-02 11:08] LABS: Add Urine Microscopic? YES; Appearance Urine Clear (Clear); Bacteria Urine None Seen /hpf; Bilirubin Urine Negative (Negative); Blood Urine Non-Hemolyzed Trace (Negative); Color Urine Yellow (Yellow); Glucose Urine UA Negative (Negative); Ketones Urine 2+ mg/dL (Negative); Leukocyte Esterase Ur Negative LEU/UL (Negative); Nitrate Urine Negative (Negative); Non Pathogenic Casts 0-2; Protein Urine Trace mg/dL (Negative); Specific Grav Ur > 1.045 (1.001-1.035); Squamous Epithelial Cell Urine None Seen /hpf (Few); Urobilinogen Urine 0.2 mg/dL (<2.0); WBC Urine 0-5 /hpf (0-3)
[2025-04-02 11:30] LABS: Magnesium 1.7 mg/dL (1.6-2.3)
[2025-04-02] MEDS: KETOROLAC 15 MG/ML VIAL (*BKC) IV PUSH (11:32)
[2025-04-02] MEDS: PROCHLORPERAZINE EDISYLATE 10 MG/2 ML VIAL 5 MG IV PUSH (11:33)
[2025-04-02] MEDS: diphenhydrAMINE HCl INJ 50 MG/ML VIAL 25 MG IV PUSH (11:33)
== END 2025-04-02 17:02 | disposition home or self-care (01) ==
PROVIDERS: Emergency Provider Student in an Organized Health Care Education/Training Program; PCP Nurse Practitioner Family
DX: K52.9 Noninfective gastroenteritis and colitis, unspecified (principal); K57.90 Diverticulosis of intestine, part unspecified, without perforation or abscess without bleeding; K44.9 Diaphragmatic hernia without obstruction or gangrene; E23.6 Other disorders of pituitary gland; R31.29 Other microscopic hematuria; D72.819 Decreased white blood cell count, unspecified; C50.919 Malignant neoplasm of unspecified site of unspecified female breast; I34.1 Nonrheumatic mitral (valve) prolapse; I51.89 Other ill-defined heart diseases; E78.5 Hyperlipidemia, unspecified; F41.9 Anxiety disorder, unspecified; F32.A Depression, unspecified; F90.2 Attention-deficit hyperactivity disorder, combined type; F51.01 Primary insomnia; Z85.810 Personal history of malignant neoplasm of tongue; Z86.16 Personal history of COVID-19; Z90.49 Acquired absence of other specified parts of digestive tract; Z79.899 Other long term (current) drug therapy
CPT/HCPCS: 36415; 70450; 74177; 80053; 81001; 83690; 83735; 85025; 96361; 96374; 96375; 99284; A9270; J0780; J1200; J1885; J2270; J2405; J7030; Q9967

== ENCOUNTER 2025-08-27 08:50 | Outpatient (CLI) | payer OTHER, SELFPAY ==
--- OUTSIDE RECORDS SUMMARY | 2016-07-07 | XMS_ITS | Encounter Summary ---
Author Organization [facility] Healthcare Address [address] [place] [address] Care Team Providers Care Family Services Specialist Name Role Phone Wei Swan MD Primary Care Provider [phone] Reason for Visit * Diagnostic Imaging (Routine) - Closed Specialty Diagnoses / Procedures Referred By Contac t Referred To Contact Procedures Breast Imaging Screening Outside Reference Aft, Ciara Dorsey MD PhD [address] [place] [address] Phone: tel: fax: Referral ID Status Reason Start Date Expiration Date Visits Re quested Visits Authorized [id number] Closed 01/26/2022 02/25/2023 1 1 Encounter Details Date Type Department Care Team (Late st Contact Info) Description 07/07/2016 Hospital Encounter [facility] [address] [place], [place] [id number] Social History Tobacco Use Types Packs/Day Years Used Date Smoking Tobacco: Never Smokeless Tobacco: Never AUDIT-C Answer Date [...] on file Legal Sex Female 2:50 AM RN PROGRESSIVE CARE UNIT Gender Identity Female 03/11/2022 12:06 PM CDT Sexual Orientation Straight 03/11/2022 12 :06 PM CDT documented as of this encounter Functional Status * AUDIT-C Score Answer Date of Assessment Author 1 11/25/2022 9:34 AM Krzysztof Sun RN * Question Answer Date of Assessment Author Q1: [...] Never 11/25/2022 9:34 AM Alisson Sun RN documented as of this encounter Plan of Treatment Not on [...] only and have not been reviewed by [facility] Radiology. There will be no report generated by a [facility] Radiologist. Narrative [facility] - 01/26/2022 3:01 PM CDT EXAMINATION: Images For Reference Purposes Only us Ciara Martinez MD PhD IMG MAMMO PROCEDURES Final Result [facility] documented in this encounter Visit Diagnoses Not on filedocumented in this encounter Additional Health Concerns Infection Onset Date Last Indicated Resolved Time COVID: Suspected 05/01/2022 05/01/2022 05/01/2022 4:59 AM CDT documented as of this encounter Care Teams Family Services Specialist Relationship Specialty Start Date End Date Wei Swan MD PCP - General 02/22/13 01/13/22 documented as of this encounter
--- OUTSIDE RECORDS SUMMARY | 2017-07-11 | XMS_ITS | Encounter Summary ---
Author Organization [facility] Healthcare Address [address] [place] [address] Care Team Providers Care Development Analyst Name Role Phone Wei Swan MD Primary Care Provider [phone] Reason for Visit * Diagnostic Imaging (Routine) - Closed Specialty Diagnoses / Procedures Referred By Contac t Referred To Contact Procedures Breast Imaging Screening Outside Reference Aft, Ciara Dorsey MD PhD [address] [place] [address] Phone: tel: fax: Referral ID Status Reason Start Date Expiration Date Visits Re quested Visits Authorized [id number] Closed 01/26/2022 02/25/2023 1 1 Encounter Details Date Type Department Care Team (Late st Contact Info) Description 07/11/2017 Hospital Encounter [facility]iology [facility] [address] [place], [place] [phone] Social History Tobacco Use Types Packs/Day Years [...] on file Legal Sex Female 2:50 AM SFDC TECHNICAL ARCHITECT Gender Identity Female 03/11/2022 12:06 PM CDT [...] only and have not been reviewed by [facility] Radiology. There will be no report generated by a [facility] Radiologist. Narrative RAD_MAMMO[facility] - 01/26/2022 2:58 PM CDT EXAMINATION: Images For Reference Purposes Only us Ciara Martinez MD PhD IMG MAMMO PROCEDURES Final Result [facility] documented in this encounter Visit Diagnoses Not on filedocumented in this encounter Additional Health Concerns Infection Onset Date Last Indicated Resolved Time COVID: Suspected 05/01/2022 05/01/2022 05/01/2022 4:59 AM CDT documented as of this encounter Care Teams Development Analyst Relationship Specialty Start Date End Date Wei Swan MD PCP - General 02/22/13 01/13/22 documented as of this encounter
--- OUTSIDE RECORDS SUMMARY | 2017-07-25 | XMS_ITS | Encounter Summary ---
Author Organization [facility] Healthcare Address [address] [place] [address] Care Team Providers Care Keycase Assembler Name Role Phone Wei Swan MD Primary Care Provider Reason for Visit * Diagnostic Imaging (Routine) - Closed Specialty Diagnoses / Procedures Referred By Contac t Referred To Contact Procedures Breast Imaging Diagnostic Outside Reference Aft, Ciara Dorsey MD PhD [address] [place] [address] Phone: tel: fax: Referral ID Status Reason Start Date Expiration Date Visits Re quested Visits Authorized [id number] Closed 01/26/2022 02/25/2023 1 1 Encounter Details Date Type Department Care Team (Late st Contact Info) Description 07/25/2017 Hospital Encounter [facility] Radiology [facility] [address] [place], [place] [phone] Social History Tobacco Use Types Packs/Day Years [...] on file Legal Sex Female 2:50 AM ENT NURSE Gender Identity Female 03/11/2022 12:06 PM CDT [...] only and have not been reviewed by [facility] Radiology. There will be no report generated by a [facility] Radiologist. Narrative [facility] - 01/26/2022 2:59 PM CDT EXAMINATION: Images For Reference Purposes Only us Ciara Martinez MD PhD IMG MAMMO PROCEDURES Final Result [facility] documented in this encounter Visit Diagnoses Not on filedocumented in this encounter Additional Health Concerns Infection Onset Date Last Indicated Resolved Time COVID: Suspected 05/01/2022 05/01/2022 05/01/2022 4:59 AM CDT documented as of this encounter Care Teams Keycase Assembler Relationship Specialty Start Date End Date Wei Swan MD PCP - General 02/22/13 01/13/22 documented as of this encounter
--- OUTSIDE RECORDS SUMMARY | 2017-07-25 00:05 | XMS_ITS | Encounter Summary ---
Author Organization [facility] Healthcare Address [address] [place] [address] Care Team Providers Care Lorry Weigher Name Role Phone Wei Swan MD Primary Care Provider [phone] Reason for Visit * Diagnostic Imaging (Routine) - Closed Specialty Diagnoses / Procedures Referred By Contac t Referred To Contact Procedures Breast Imaging US Outside Reference Aft, Ciara Dorsey MD PhD [address] [place] [address] Phone: tel: fax: Referral ID Status Reason Start Date Expiration Date Visits Re quested Visits Authorized [id number] Closed 01/26/2022 02/25/2023 1 1 Encounter Details Date Type Department Care Team (Late st Contact Info) Description 07/25/2017 12:05 AM CDT Hospital Encounter [facility] Radiology [facility] [address] [place] [id number] Social History Tobacco Use Types Packs/Day Years [...] on file Legal Sex Female 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 Radiology. There will be no report generated by a [facility] Radiologist. Narrative [facility] - 01/26/2022 2:59 PM CDT EXAMINATION: Images For Reference Purposes Only us Ciara Martinez MD PhD IMG MAMMO PROCEDURES Final Result [facility] documented in this encounter Visit Diagnoses Not on filedocumented in this encounter Additional Health Concerns Infection Onset Date Last Indicated Resolved Time COVID: Suspected 05/01/2022 05/01/2022 05/01/2022 4:59 AM CDT documented as of this encounter Care Teams Lorry Weigher Relationship Specialty Start Date End Date Wei Swan MD PCP - General 02/22/13 01/13/22 documented as of this encounter
--- OUTSIDE RECORDS SUMMARY | 2018-07-14 | XMS_ITS | Encounter Summary ---
Author Organization [facility] Healthcare Address [address] [place] [address] Care Team Providers Care Claim Manager Name Role Phone Wei Swan MD Primary Care Provider [phone] Reason for Visit * Diagnostic Imaging (Routine) - Closed Specialty Diagnoses / Procedures Referred By Contac t Referred To Contact Procedures Breast Imaging Screening Outside Reference Aft, Ciara Dorsey MD PhD [address] [place] [address] Phone: tel: fax: Referral ID Status Reason Start Date Expiration Date Visits Re quested Visits Authorized [id number] Closed 01/26/2022 02/25/2023 1 1 Encounter Details Date Type Department Care Team (Late st Contact Info) Description 07/14/2018 Hospital Encounter [facility]iology [facility] [address] [place], [place] [phone] Social History Tobacco Use Types Packs/Day Years [...] on file Legal Sex Female 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 Never 11/25/2022 9:34 AM Alissno Sun RN documented as of this encounter [...] have not been reviewed by [facility] Radiology. There will be no report generated by a [facility] Radiologist. Narrative RAD[facility] - 01/26/2022 2:57 PM CDT EXAMINATION: Images For Reference Purposes Only us Ciara Martinez MD PhD IMG MAMMO PROCEDURES Final Result [facility] documented in this encounter Visit Diagnoses Not on filedocumented in this encounter Additional Health Concerns Infection Onset Date Last Indicated Resolved Time COVID: Suspected 05/01/2022 05/01/2022 05/01/2022 4:59 AM CDT documented as of this encounter Care Teams Claim Manager Relationship Specialty Start Date End Date Wei Swan MD PCP - General 02/22/13 01/13/22 documented as of this encounter
--- OUTSIDE RECORDS SUMMARY | 2019-07-17 | XMS_ITS | Encounter Summary ---
Author Organization [facility] Healthcare Address [address] [place] [address] Care Team Providers Care Certified Recreational Therapist Name Role Phone Wei Swan MD Primary Care Provider [phone] Reason for Visit * Diagnostic Imaging (Routine) - Closed Specialty Diagnoses / Procedures Referred By Contac t Referred To Contact Procedures Breast Imaging Screening Outside Reference Aft, Ciara Dorsey MD PhD [address] [place] [address] Phone: tel: fax: Referral ID Status Reason Start Date Expiration Date Visits Re quested Visits Authorized [id number] Closed 01/26/2022 02/25/2023 1 1 Encounter Details Date Type Department Care Team (Late st Contact Info) Description 07/17/2019 Hospital Encounter [facility] [address] [place], [place] [id number] Social History Tobacco Use Types Packs/Day Years [...] on file 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
--- OUTSIDE RECORDS SUMMARY | 2020-08-15 | XMS_ITS | Encounter Summary ---
Author Organization [facility] Healthcare Address [address] [place] [address] Care Team Providers Care Bulldozer Operator Name Role Phone Wei Swan MD Primary Care Provider [phone] Reason for Visit * Diagnostic Imaging (Routine) - Closed Specialty Diagnoses / Procedures Referred By Contac t Referred To Contact Procedures Breast Imaging Screening Outside Reference Aft, Ciara Dorsey MD PhD [address] [place] [address] Phone: tel: fax: Referral ID Status Reason Start Date Expiration Date Visits Re quested Visits Authorized [id number] Closed 01/26/2022 02/25/2023 1 1 Encounter Details Date Type Department Care Team (Late st Contact Info) Description 08/15/2020 Hospital Encounter [facility] [address], [place] [id number] Social History Tobacco Use Types Packs/Day Years [...] on file 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 There will be no report generated by a [facility] Radiologist. Narrative [facility]MO[facility] - 01/26/2022 2:57 PM CDT EXAMINATION: Images For Reference Purposes Only us Ciara Martinez MD PhD IMG MAMMO PROCEDURES Final Result [facility] documented in this encounter Visit Diagnoses Not on filedocumented in this encounter Additional Health Concerns Infection Onset Date Last Indicated Resolved Time COVID: Suspected 05/01/2022 05/01/2022 05/01/2022 4:59 AM CDT documented as of this encounter Care Teams Bulldozer Operator Relationship Specialty Start Date End Date Wei Swan MD PCP - General 02/22/13 01/13/22 documented as of this encounter
--- OUTSIDE RECORDS SUMMARY | 2025-08-27 09:32 | XMS_ITS | Encounter Summary ---
Author Organization [facility] Address 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
--- OUTSIDE RECORDS SUMMARY | 2025-08-27 09:32 | XMS_ITS | Encounter Summary ---
Author Organization [facility] Address 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
--- OUTSIDE RECORDS SUMMARY | 2025-08-27 09:32 | XMS_ITS | Encounter Summary ---
Author Organization [facility] Address [address] [place] [address] Care Team Providers Care Weed Burner Name Role Phone Unavailable Primary Care Provider Unavailabl e Encounter Details Date Type Department Care Team (Latest Contact Info) Description 09/12/1999 Outpatient Historical [facility] Clinton Mota MD NO ADDRESS ON FILE Female infertility associated with anovulation (Primary Dx) Social History Tobacco Use Types Packs/Day Years Used Date Smoking Tobacco: Never Assessed Comments Unknown Sex and Gender Information Value Date Recorded Sex Assigned at Not on file Legal Sex Female 4:53 AM LOCATION MAN Gender Identity Not on file Sexual Orientation Not on file documented as of this encounter Plan of Treatment Not on file documented as of this encounter Visit Diagnoses Diagnosis 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
--- OUTSIDE RECORDS SUMMARY | 2025-08-27 09:32 | XMS_ITS | Encounter Summary ---
Author Organization [facility] Address [address] [place] [address] Care Team Providers Care Investigation Officer Name Role Phone Unavailable Primary Care Provider Unavailabl e Encounter Details Date Type Department Care Team (Latest Contact Info) Description 10/14/1999 Outpatient Historical [facility] Clinton Mota MD NO ADDRESS ON FILE Female infertility associated with anovulation (Primary Dx) Social History Tobacco Use Types Packs/Day Years Used Date Smoking Tobacco: Never Assessed Comments Unknown Sex and Gender Information Value Date Recorded Sex Assigned at Not on file Legal Sex Female 4:53 AM HANGER Gender Identity Not on file Sexual Orientation Not on file documented as of this encounter Plan of Treatment Not on file documented as of this encounter Visit Diagnoses Diagnosis 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
--- OUTSIDE RECORDS SUMMARY | 2025-08-27 09:32 | XMS_ITS | Encounter Summary ---
Author Organization [facility] Address [address] [place] [address] Care Team Providers Care Correctional Captain Name Role Phone Unavailable Primary Care Provider [...] on file Legal Sex Female 4:53 AM SECOND STEWARD Gender Identity Not on file Sexual Orientation Not on file documented as of this encounter Plan of Treatment Not on file documented as of this encounter Visit Diagnoses Diagnosis 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
--- OUTSIDE RECORDS SUMMARY | 2025-08-27 09:32 | XMS_ITS | Encounter Summary ---
Author Organization [facility] Address [address] [place] [address] Phone Care Team Providers Care Electronic Funds Transfer Coordinator Name Role Phone Yasir Gonzalez MD Unavailable Aft, Ciara Dorsey MD PhD Unavailable [phone] Monika Bryant MD Unavailable Yeny Oliveira PhD Unavailable [phone] Yossi Reaves MD Primary Care Provider [phone] Jessenia Vaughn LOCKSTITCH LINING MAKER Unavailable [phone] Encounter Details Date Type Department Care Team [...] on file Legal Sex Female 2:50 AM WEB RETAILER Gender Identity Female 03/11/2022 12:06 PM CDT [...] on filedocumented in this encounter Care Teams Electronic Funds Transfer Coordinator Relationship Specialty Start Date End Date Yossi Reaves MD [address] [place] [address] PCP - General Family Practice 09/02/23 Yasir Gonzalez MD [address] [place] [address] Consulting Physician Medical Oncology 03/08/22 Aft, Ciara Dorsey MD PhD [address] [place] [address] Surgeon Surgical Oncology 03/16/22 Monika Bryant MD [address] [place] [address] Radiation Oncologist Radiation Oncology 11/25/22 Yeny Oliveira, PhD [address] [place] [address] Nurse Practitioner Radiation Oncology 02/07/23 Jessenia Vaughn NP [address] [place] [address] Nurse Practitioner Nurse Practitioner 09/05/23 documented as of this encounter
--- OUTSIDE RECORDS SUMMARY | 2025-08-27 09:32 | XMS_ITS | Encounter Summary ---
Author Organization [facility] Address [address] [place] [address] Care Team Providers Care Cinder Block Mason Name Role Phone Unavailable Primary Care Provider Unavailabl e Encounter Details Date Type Department Care Team (Latest Contact Info) Description 01/02/2000 Outpatient Historical [facility] Clinton Mota MD NO ADDRESS ON FILE Female infertility of unspecified origin (Primary Dx) Social History Tobacco Use Types Packs/Day Years Used Date Smoking Tobacco: Never Assessed Comments Unknown Sex and Gender Information Value Date Recorded Sex Assigned at Not on file Legal Sex Female 4:53 AM ARMOR RECONNAISSANCE SPECIALIST Gender Identity Not on file Sexual Orientation Not on file documented as of this encounter Plan of Treatment Not on file documented as of this encounter Visit Diagnoses Diagnosis Female infertility of unspecified origin- Primary documented in this encounter
--- OUTSIDE RECORDS SUMMARY | 2025-08-27 09:32 | XMS_ITS | Encounter Summary ---
Author Organization [facility] Address [address] [place] [address] Care Team Providers Care Solar Photovoltaic Crew Lead Name Role Phone Unavailable Primary Care Provider Unavailabl e Encounter Details Date Type Department Care Team (Latest Contact Info) Description 06/08/1999 Outpatient Historical [facility] Clinton Mota MD NO ADDRESS ON FILE Female infertility associated with anovulation (Primary Dx) Social History Tobacco Use Types Packs/Day Years Used Date Smoking Tobacco: Never Assessed Comments Unknown Sex and Gender Information Value Date Recorded Sex Assigned at Not on file Legal Sex Female 4:53 AM RADIOLOGY EQUIPMENT SERVICER Gender Identity Not on file Sexual Orientation Not on file documented as of this encounter Plan of Treatment Not on file documented as of this encounter Visit Diagnoses Diagnosis 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
--- OUTSIDE RECORDS SUMMARY | 2025-08-27 09:32 | XMS_ITS | Encounter Summary ---
Author Organization [facility] Address [address] [place] [address] Care Team Providers Care Tour Consultant Name Role Phone Unavailable Primary Care Provider [...] on file Legal Sex Female 4:53 AM FRESH FOODS CAKE DECORATOR Gender Identity Not on file Sexual Orientation Not on file documented as of this encounter Plan of Treatment Not on file documented as of this encounter Visit Diagnoses Diagnosis Unspecified symptom associated with female genital organs- Primary documented in this encounter
--- OUTSIDE RECORDS SUMMARY | 2025-08-27 09:32 | XMS_ITS | Clinical Summary ---
Author Organization [facility] Address [address] [place] [address] Care Team Providers Care Finisher Tailor Apprentice Name Role Phone Wei Swan MD Primary Care Provider [phone] Source Comments [facility],non-owned Affiliates and Associated Physician Practices is amultiple site organization consisting of ambulatory clinics and hospital sitesin [place], [place], [place] and [place]. This disclosure is being madepursuant to the Care Everywhere program and may not contain all information available regarding this patient. Last updated 18.[facility] Allergies Active Allergy Reactions Criticality Noted Date [...] on file Legal Sex Female 5:29 PM LATIN PROFESSOR Gender Identity Not on file Sexual Orientation [...] 3:00 PM CDT Height 165.1 cm (5' 5) 07/05/2017 3:00 PM CDT Body Mass Index [...] 2011 ZOSTER VACCINE (1 of 2) 2011 DEPRESSION SCREENING 11/14/2024 COVID-19 VACCINE (1 - 2023-2 5 season) 2025 INFLUENZA VACCINE (#1) 2025 Respiratory Syncytial Virus (RSV) Vaccine Pt: [...] complete this topic Insurance [employer] Care Teams Finisher Tailor Apprentice Relationship Specialty Start Date End Date Wei Swan MD [address] [place] [address] PCP - General 06/28/17
--- OUTSIDE RECORDS SUMMARY | 2025-08-27 09:32 | XMS_ITS | Encounter Summary ---
Author Organization [facility] Address [address] [place] [address] Phone Care Team Providers Care Market News Reporter Name Role Phone Giovanni Gutierrez DO Primary Care Provider [phone] Jessenia Vaughn PHARMACEUTICAL PHYSICIAN Unavailable [phone] Yasir Gonzalez MD Unavailable Aft, Ciara oDrsey MD PhD Unavailable [phone] Monika Bryant MD Unavailable Nenita Rivera DPT Unavailable Yeny Oliveira PhD Unavailable [phone] Yossi Reaves MD Primary Care Provider [phone] Jessenia Vaughn PHARMACEUTICAL PHYSICIAN Unavailable [phone] Encounter Details Date Type Department Care Team [...] on file Legal Sex Female 2:50 AM RISK CONTROL SPECIALIST Gender Identity Female 03/11/2022 12:06 PM [...] on filedocumented in this encounter Care Teams Market News Reporter Relationship Specialty Start Date End Date Giovanni Gutierrez DO PCP - General Internal Medicine 01/14/22 05/11/23 Yossi Reaves MD [address] [facility] [address] [place] [address] PCP - General Family Practice 09/02/23 Jessenia Vaughn NP Nurse Practitioner Nurse Practitioner 01/14/22 Yasir Villeda MD [address] [place] [address] Consulting Physician Medical Oncology 03/08/22 AftCiara MD PhD [address] [facility] [place] [address] Surgeon Surgical Oncology 03/16/22 Monika Bryant MD [address] [facility] [address] [place] [address] Radiation Oncologist Radiation Oncology 11/25/22 Nenita Rivera DPT [address] [place] [address] Physical Therapist Physical Therapy 12/06/22 01/19/24 Yeny Oliveira, PhD [address] [place] [address] Nurse Practitioner Radiation Oncology 02/07/23 Jessenia Vaughn, [place] [address] [place] [address] Nurse Practitioner Nurse Practitioner 09/05/23 documented as of this encounter
--- OUTSIDE RECORDS SUMMARY | 2025-08-27 09:32 | XMS_ITS | Patient Health Record ---
Author Organization [facility] Address [address] [place], [place] [id number] Care Team Providers Care Clinical Immunologist Name Role Phone MOIZ Sadler Unavailable Wei Swan Unavailable Unavailable Reason For Referral No Information Plan Of Treatment No Information Insurance Providers Payer Name Payer Address Payer Phone Subscriber Number Group Number Insured Name Patient Relationship to Insured Coverage Start Date [facility]age End Date [facility] [address] [place], [place] [id number] ALEXANDER GUEVARA Self - patient is the insured
--- OUTSIDE RECORDS SUMMARY | 2025-08-27 09:32 | XMS_ITS | Clinical Summary ---
Author Organization [facility] Address [address] [place] [phone] Care Team Providers Care Upholstery Covers Inspector Name Role Phone Yasir Gonzalez MD Unavailable Aft, Ciara Dorsey MD PhD Unavailable [phone] Monika Bryant MD Unavailable Yeny Oliveira PhD Unavailable [phone] Yossi Reaves MD Primary Care Provider [phone] Jessenia Vaughn UNIT AIDE Unavailable [phone] Allergies Active Allergy Reactions Criticality Noted Date Comments Adhesive Rash Medium 02/05/2022 Penicillins Hives,Itching Medium 02/05/2022 Medications carvedilol CR (COREG CR) 40 mg 24 hr capsuleIndicatio ns:hypertension Take 1 capsule (40 mg total) by mouth every morning 12/01/19 22 Active omeprazole (PriLOSEC) 20 mg capsuleIndicatio ns:Treatment of Non-Bleeding Gastric Disorder Take 1 capsule (20 mg total) by mouth every morning 12/11/19 22 Active pravastatin (PRAVACHOL) 40 mg tabletIndication s:hyperlipidemia Take 1 tablet (40 mg total) by mouth every morning 01/28/20 22 Active traZODone (DESYREL) 100 mg tabletIndication s:insomnia associated with depression Take 1 tablet (100 mg total) by mouth nightly 05/11/20 17 Active acetaminophen (TYLENOL) 500 mg tabletIndication s:Pain Take 1 tablet (500 mg total) by mouth as needed for pain Active ibuprofen (ADVIL,MOTRIN) 200 mg tab/cap Take 1 tablet/capsule (200 mg total) by mouth 2 (two) times a day as needed for pain 05/03/20 22 Active doxycycline (PERIOSTAT) 20 mg tablet Take 1 tablet (20 mg total) by mouth 2 (two) times a day Active dextroamphetamin e sulfate (DEXTROSTAT) 15 mg tablet Active vibegron (Gemtesa) 75 mg tabletIndication s:Urinary Urge Incontinence Take 75 mg by mouth nightly Active DULoxetine DR (CYMBALTA) 30 mg capsule Take 1 capsule (30 mg total) by mouth 2 (two) times a day 10/04/20 23 Active Vyvanse 40 mg capsule Take 1 capsule (40 mg total) by mouth daily 10/10/20 23 Active loperamide (IMODIUM) 2 mg capsuleIndicatio ns: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 breast in female, estrogen receptor positive (HCC) Take 2 caps (4 mg) by mouth with first onset of diarrhea, 1 cap (2 mg) after each loose stool thereafter. Max 8 caps (16 mg) per 24 hours. 60 capsule 3 12/02/19 24 Active dextroamphetamin e-amphetamine (ADDERALL) 15 mg tablet TAKE 1 TABLET BY MOUTH TWICE DAILY 4 TO 6 HOURS APART 12/20/19 24 Active al & mag hydroxide simethicone-diph enhydramine-lido goyo-nystatin (MAGIC MOUTHWASH) suspension 7-7-4-1Indicatio ns:Mouth sores Swish and swallow 10 mL every 4 (four) hours as needed (Mouth pain) 400 mL 1 01/20/[address] (CYMBALTA) 60 mg capsule Take 1 capsule (60 mg total) by mouth daily 01/19/20 24 Active nystatin cream Apply topically 2 (two) times a day To affected area until resolved 30 g 1 02/17/20 24 Active ondansetron (ZOFRAN) 8 mg tabletIndication s: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 breast in female, estrogen receptor positive (HCC),Nausea and vomiting, unspecified vomiting type TAKE 1 TABLET BY MOUTH EVERY 8 HOURS NEEDED FOR NAUSEA AND VOMITING 30 tablet 3 07/17/20 24 Active docusate sodium (COLACE) 100 mg capsuleIndicatio ns: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 breast in female, estrogen receptor positive (HCC),Constipati on, unspecified constipation type TAKE 1 CAPSULE BY MOUTH 2 TIMES A DAY NEEDED FOR CONSTIPATION 60 capsule 1 09/03/20 24 Active abemaciclib (VERZENIO) 150 mg tabletIndication s: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 breast in female, estrogen receptor positive (HCC) Take 1 tablet (150 mg total) by mouth 2 (two) times a day 56 tablet 11 10/16/20 24 Active anastrozole (ARIMIDEX) 1 mg tabletIndication s: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 breast in female, estrogen receptor positive (HCC) TAKE 1 TABLET BY MOUTH EVERY DAY 90 tablet 3 10/31/20 24 Active diphenoxylate-at ropine (LOMOTIL) 2.5-0.025 mg per tabletIndication s:diarrhea Take 1 tablet by mouth 4 (four) times a day as needed for diarrhea 30 tablet 04/04/20 25 Active fluticasone propionate (FLONASE) 50 mcg/actuation nasal spray 2 sprays daily 04/22/20 25 Active prochlorperazine (COMPAZINE) 10 mg tabletIndication s: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 breast in female, estrogen receptor positive (HCC),Nausea Take 1 tablet (10 mg total) by mouth every 6 (six) hours as needed for nausea or vomiting 60 tablet 1 06/19/20 25 Active gabapentin (NEURONTIN) 300 mg capsuleIndicatio ns: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 breast in female, estrogen receptor positive (HCC) TAKE 1 CAPSULE BY MOUTH EVERY MORNING AND 2 CAPSULES BY MOUTH AT NIGHT 90 capsule 3 06/19/20 25 Active dicyclomine (BENTYL) 20 mg tabletIndication s:Abdominal cramping TAKE 1 TABLET(20 MG) BY MOUTH FOUR TIMES DAILY NEEDED FOR ABDOMINAL CRAMPS 120 tablet 1 07/22/20 25 Active amitriptyline (ELAVIL) 50 mg tablet Take 1 tablet (50 mg total) by mouth nightly 30 tablet 11 08/14/20 25 026 Active levothyroxine (SYNTHROID) 50 mcg tablet Take 1 tablet (50 mcg total) by 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 before breakfast 30 tablet 2 08/15/20 25 Active PARoxetine (PAXIL) 20 mg tabletIndication s:night sweats Take 1 tablet (20 mg total) by mouth nightly 025 Discontin ued(Thera py completed ) Active Problems Problem Noted Date Diagnosed Date Migraine with aura and witho ut status migrainosus, not intractable 08/14/2025 Medication overuse headache 08/14/2025 Closed displaced fracture of fifth metatarsal bone [...] from 02/24/2022:Stage IIA(cT2, cN0(f), cM0, G3, ER+, ID+, HER2-) - Signed by Ilda Jenkins MD on 11/25/2022 Pathologic stage from 10/05/2022:No Stage Recommended(ypT1a, pN1mi(sn), cM0, GX, ER+, ID+, HER2-) - Signed by Ilda Jenkins MD on 11/25/2022 Overview (03/08/2022): Added automatically from request for surgery [id number] Assessment & Plan (05/03/2022 12:59 PM CDT): [...] Encounters Date Type Department Care Team Description 08/14/2025 9:50 AM CDT Lab [facility] [address] [place] [phone] Migraine with aura and without status migrainosus, not intractable 08/14/2025 9:00 AM CDT Office [facility] [address] [place] [phone] Rod Barrett MD Migraine with aura and without status migrainosus, not intractable (Primary Dx); Medication overuse headache 08/14/2025 Results [facility] [address] [place] [address] [address] [place] [phone] Rod Barrett MD Thyroid Function Letcher, T4, free 07/03/2025 1:15 PM CDT Office Visit [facility] with [facility] [address] [place] [address] Helena Lombardo, UNIT AIDE Empty sella (Primary Dx) 07/03/2025 10:26 AM CDT - 07/03/2025 11:59 PM CDT Hospital Encounter [facility] - Imaging [address] [place] [phone] Other disorders of pituitary gland Discharge Disposition: Discharge to home or self care 06/19/2025 4:00 PM CDT Infusion [facility] [address] [facility] [address] [place] [address] 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 breast in female, estrogen receptor positive (HCC) (Primary Dx); FDC (current) use of aromatase inhibitors 06/19/2025 3:00 PM CDT Office Visit [facility] [address] [facility] [address] [place] [phone] Yasir Gonzalez MD 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 breast in female, estrogen receptor positive (HCC) (Primary Dx); buttermaker helper (current) use of aromatase inhibitors; Nausea 06/19/2025 2:30 PM CDT Lab [facility] - Lab Collection [address] [facility] [address] [place] [address] 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 breast in female, estrogen receptor positive (HCC) 06/19/2025 2:00 PM CDT Lab [facility] [address] [facility] [address] [place] [address] 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 breast in female, estrogen receptor positive (HCC) from Last 3 Months Immunizations Immunization Administration [...] on file 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 Gender Identity Female 03/11/2022 12:06 PM CDT Sexual Orientation Straight 03/11/2022 12 :06 PM CDT Obstetrics History Para Term AB IAB SAB Ectopic Multiple Livin g Live Births 3 2 Date Outcome GA Total Labor Labor/2nd/3rd Weight Sex Type Anes PTL Pamela A1 A5 Name Clin Para Para Last Filed Vital Signs Vital Sign Reading Time Taken Comments Blood Pressure 124/62 08/14/2025 8:47 AM CDT Pulse 73 08/14/2025 8:47 AM CDT Temperature 36.2 C (97.1 F) 06/19/2025 2:43 PM CDT Respiratory Rate 16 08/14/2025 8:47 AM CDT Oxygen Saturation 97% 08/14/2025 8:47 AM CDT Inhaled Oxygen Concentration - - Weight 71.2 kg (157 lb) 08/14/2025 8:47 AM CDT Height 162.6 cm (5' 4) 08/14/2025 8:47 AM CDT Body Mass Index 26.95 08/14/2025 8:47 AM CDT Plan of Treatment Health Maintenance Due Date Last Done Comments Cervical Cancer Screening 1961 Colon Cancer Screening-Colonoscopy 1961 Depression Screening 1961 Hepatitis C Screening 1961 Hepatitis B Screening 1979 Regular Well Visit/Exam 18-64 1979 Pneumococcal vaccine <65 (1 of 2 - PCV) 02/04/1980 Covid-19 Vaccine (4 - 2024-2 6 season) 2025 09/14/2021, 2021, 01/13/2021 Influenza Vaccine (#1) 2025 , 09/02/2023, 10/15/2021, Additional history exists Breast Cancer Screening-Mammogram 05/07/2026 05/07/2025, 04/30/2024, 05/25/2023, Additional history exists DTaP/Tdap/Td Vaccine (2 - Td or Tdap) 03/18/2028 03/18/2018 Zoster Vaccine Completed 10/08/2018, 07/04/2018 Medical Devices Implanted Type Area Liaison Inspection Laboratory Assistant Device Identifier Shelf Expiration Date Model / Serial / Lot Bard Peripheral Vascular Ultraclip Bard 17ga 10cm 2 Trigger Permanent Ultrasound [id number] - [id number] Implanted:Qty: 1 on 02/24/2022 at [facility] [employer] [id number] / / [employer]ipheral [employer] Powerport Clearvue Airguard 8fr 1 Lumen Lightweight Intermediate Latex Free [id number] - [id number] Implanted:Qty: 1 on 03/16/2022 by Aft, Ciara Dorsey MD PhD at [facility] Right: Chest [employer] 05/13/2023 [id number] / / [id number] Bard Peripheral [employer] Ghiatas 20ga 15cm 5cm Beaded Needle Breast Wire Localization [id number] - [id number] Implanted:Qty: 1 on 10/05/2022 at [facility] Left: Breast [employer] [id number] / / Procedures Procedure Name Priority Date/Time Associated Diagnosis Comments T4, FREE Routine 08/14/2025 9:53 AM CDT Migraine with aura and without status migrainosus, not intractable THYROID FUNCTION CASCADE Routine 08/14/2025 9:53 AM CDT Migraine with aura and without status migrainosus, not intractable MRI BRAIN W WO CONTRAST Schedule Routine, Read Routine (OP Routine) 07/03/2025 11:39 AM CDT Other disorders of pituitary gland EGFR Routine 06/19/2025 2:33 PM CDT 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 breast in female, estrogen receptor positive (HCC) DIFFERENTIAL AUTO Routine 06/19/2025 2:3 3 PM CDT 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 breast in female, estrogen receptor positive (HCC) CBC WITH AUTO DIFFERENTIAL Routine 06/19/2025 2:33 PM CDT 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 breast in female, estrogen receptor positive (HCC) COMPREHENSIVE METABOLIC PANEL Routine 06/19/2025 2:33 PM CDT 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 breast in female, estrogen receptor positive (HCC) DIAGNOSTIC MAMMOGRAM BILATERAL W REESE Schedule Routine, Read Routine (OP Routine) 05/07/2025 2:56 PM CDT History of breast cancer from Last 3 Months or Most Recently Relevant to Health Maintenance Results * (ABNORMAL) Thyroid Function Letcher (08/14/2025 9:53 AM CDT) TSH 5.42(H) 0.30 - 4.20 mcIUnit/mL Blood 08/14/2025 9:53 AM CDT 08/14/2025 12:44 PM CDT us Rod Barrett MD LAB BLOOD ORDERABLES Final Result [facility] [address] Department [place] [address] * T4, free (08/14/2025 9:53 AM CDT) Free T4 0.90 0.90 - 1.70 ng/dL Blood 08/14/2025 9:53 AM CDT 08/14/2025 12:44 PM CDT Narrative [facility] - 08/14/2025 3:25 PM CDT This test was reflexed from a TSH result. us Rod Barrett MD LAB BLOOD ORDERABLES Final Result [facility] [address] Department [place] [address] * MRI Brain W WO Contrast (07/03/2025 11:39 AM CDT) Anatomical Region Laterality Modality Head and Neck N/A Magnetic Resonan ce 07/03/2025 11:4 9 AM CDT Impressions 07/03/2025 12:18 PM CDT Unchanged partially empty sella, a nonspecific finding that typically represents a normal variant in this age group. No pituitary lesion. Dictated by: Mario Beckham MD The radiology attending physician has personally reviewed this study, and had reviewed and/or edited this written report and agrees with it. Electronically signed by: Dae Blair MD Narrative 07/03/2025 12:18 PM CDT EXAMINATION: Magnetic resonance imaging (MRI) of the brain and brainstem without and with contrast. HISTORY: Incidental empty sella on head CT TECHNIQUE: Multiplanar multi-weighted MRI of the brain and brainstem was performed without without and with intravenous contrast using the pituitary protocol. This included acquisitions showing dynamic contrast enhancement of the sella turcica in the coronal plane and a post-contrast T1-Stealth sequence. Contrast information: 14 mL Gadoterate Meglumine IV COMPARISON: Head CT 04/02/2025 FINDINGS: Motion degraded examination. Redemonstrated partially empty sella, with a small amount of CSF herniation through the diaphragm sella causing concavity within the superior pituitary margin. The pituitary gland enhances normally with no adenoma . The infundibulum appears normal. The optic chiasm and orbits are normal. There is no abnormal contrast enhancement. The scalp and calvarium are normal. The superior sagittal sinus demonstrates normal venous flow. The corpus callosum is normal in shape and signal intensity. The posterior fossa is unremarkable. The brainstem and craniocervical junction are unremarkable. The ventricles are normal in size and position without evidence of hydrocephalus. The paranasal sinuses are normal. Unchanged small bilateral mastoid effusions. The orbits appear normal. Normal flow voids are demonstrated in the carotid arteries and basilar artery. Procedure Note Dae Blair MD PhD - 07/03/2025 EXAMINATION: Magnetic resonance imaging (MRI) of the brain and brainstem without and with contrast. HISTORY: Incidental empty sella on head CT TECHNIQUE: Multiplanar multi-weighted MRI of the brain and brainstem was performed without without and with intravenous contrast using the pituitary protocol. This included acquisitions showing dynamic contrast enhancement of the sella turcica in the coronal plane and a post-contrast T1-Stealth sequence. Contrast information: 14 mL Gadoterate Meglumine IV COMPARISON: Head CT 04/02/2025 FINDINGS: Motion degraded examination. Redemonstrated partially empty sella, with a small amount of CSF herniation through the diaphragm sella causing concavity within the superior pituitary margin. The pituitary gland enhances normally with no adenoma . The infundibulum appears normal. The optic chiasm and orbits are normal. There is no abnormal contrast enhancement. The scalp and calvarium are normal. The superior sagittal sinus demonstrates normal venous flow. The corpus callosum is normal in shape and signal intensity. The posterior fossa is unremarkable. The brainstem and craniocervical junction are unremarkable. The ventricles are normal in size and position without evidence of hydrocephalus. The paranasal sinuses are normal. Unchanged small bilateral mastoid effusions. The orbits appear normal. Normal flow voids are demonstrated in the carotid arteries and basilar artery. IMPRESSION: Unchanged partially empty sella, a nonspecific finding that typically represents a normal variant in this age group. No pituitary lesion. Dictated by: Mario Beckham MD The radiology attending physician has personally reviewed this study, and had reviewed and/or edited this written report and agrees with it. Electronically signed by: Dae Blair MD us Helena Padmini Lombardo NP IM MRI PROCEDURES Final Resul t * eGFR (06/19/2025 2:33 PM CDT) eGFR 66 >=60 mL/min/1. 73 m2 Comment: Interpretive Data Reference Interval Normal >/= 90 mL/min/1.73m2 Mildly decreased* 60 - 89 mL/min/1.73m2 Mildly to moderately decreased 45 - 59 mL/min/1.73m2 Moderately to severely decreased 30 - 44 mL/min/1.73m2 Severely decreased 15 - 29 mL/min/1.73m2 Kidney Failure < 15 mL/min/1.73m2 *Relative to young adult level Estimated glomerular filtration rate is determined by the 2020 CKD-EPI equation recommended by the National Kidney Foundation (A Unifying Approach to GFR Estimation: Recommendations of the NKF-ASK Task Force on Reassessing the Inclusion of Race in Diagnosing Kidney Disease, JASN 2020). The CKD-EPI equation should not be used for patients with unstable renal function and has not been validated in children and those over 70. Current interpretive data was last reviewed 2021. Blood 06/19/2025 2:33 PM CDT 06/19/2025 2:36 PM CDT Yasir Gonzalez MD LAB BLOOD ORDERAB LES Final Result [facility] [address] [facility] Department [place] [address] * Differential, auto (06/19/2025 2:33 PM CDT) Neutrophil abs 2.54 1.50 - 6.50 K/cumm Comment:Testing performed by : [facility], [address] [place], [place] [phone] Lymphocyte abs 0.86 0.80 - 3.30 K/cumm [facility] Comment:Testing performed by : [facility], [address] [place] [phone] Monocyte abs 0.29 0.20 - 0.80 K/cumm [facility] Comment:Testing performed by : [facility], [address] [place] [phone] Eosinophil abs 0.05 0.00 - 0.50 K/cumm [facility] Comment:Testing performed by : [facility], [address] [place] [phone] Basophil abs 0.05 0.00 - 0.10 K/cumm [facility] Comment:Testing performed by : [facility], [address] [place] [phone] Neutrophil pct 67.0 % [facility] Comment: Interpretive Data Percent cell count reference ranges are not reported, since discordance with absolute values may lead to misinterpretation of CBC data. Current Interpretive Data was last revised on 2018. Testing performed by: [facility], [address] [place] [phone] Lymphocyte pct 22.6 % [facility] Comment: Interpretive Data Percent cell count reference ranges are not reported, since discordance with absolute values may lead to misinterpretation of CBC data. Current Interpretive Data was last revised on 2018. Testing performed by: [facility], [address] [place] [phone] Monocyte pct 7.8 % [facility] Comment: Interpretive Data Percent cell count reference ranges are not reported, since discordance with absolute values may lead to misinterpretation of CBC data. Current Interpretive Data was last revised on 2018. Testing performed by: [facility], [address] [place] [phone] Eosinophil pct 1.2 % [facility] Comment: Interpretive Data Percent cell count reference ranges are not reported, since discordance with absolute values may lead to misinterpretation of CBC data. Current Interpretive Data was last revised on 2018. Testing performed by: [facility], [address] [place] [phone] Basophil pct 1.4 % [facility] Comment: Interpretive Data Percent cell count reference ranges are not reported, since discordance with absolute values may lead to misinterpretation of CBC data. Current Interpretive Data was last revised on 2018. Testing performed by: [facility], [address] [place] [phone] Blood 06/19/2025 2:33 PM CDT 06/19/2025 2:35 PM CDT Yasir Gonzalez MD LAB BLOOD ORDERAB LES Final Result [facility] Department [place] [address] * (ABNORMAL) CBC with auto differential (06/19/2025 2:33 PM CDT) WBC 3.79(L) 3.80 - 9.90 K/cumm Comment:Testing performed by : [facility], [address] [place] [address] Hgb 12.7 11.9 - 15.5 g/dL [facility] Comment:Testing performed by : [facility], [address] [place] [address] Hct 35.5(L) 35.6 - 45.5 % [facility] Comment:Testing performed by : [facility], [address] [place] [address] Plt 195 150 - 400 K/cumm [facility] Comment:Testing performed by : [facility], [address] [place] [address] MPV 6.4(L) 6.8 - 10.4 fL [facility] Comment:Testing performed by : [facility], [address] [place] [address] RBC 3.27(L) 3.90 - 5.20 M/cumm [facility] Comment:Testing performed by : [facility], [address] [place] [address] MCV 108.5(H) 81.3 - 96.4 fL [facility] Comment:Testing performed by : [facility], [address] [place] [address] MCH 38.8(H) 27.1 - 33.3 pg [facility] Comment:Testing performed by : [facility], [address] [place] [address] MCHC 35.7 32.3 - 35.7 g/dL [facility] Comment:Testing performed by : [facility], [address] [place] [address] RDW CV 13.6 11.1 - 14.9 % [facility] Comment:Testing performed by : [facility], [address] [place] [address] NRBC abs 0.00 0.00 - 0.01 K/cumm [facility] Comment:Testing performed by : [facility], [address] [place] [address] Blood 06/19/2025 2:33 PM CDT 06/19/2025 2:35 PM CDT Yasir Gonzalez MD LAB BLOOD ORDERAB LES Final Result [facility] Department [place] [address] * Comprehensive metabolic panel (06/19/2025 2:33 PM CDT) Sodium 140 135 - 145 mmol/L Potassium, pl 3.5 3.3 - 4.9 mmol/L [facility] Chloride 100 97 - 110 mmol/L [facility] CO2 29 22 - 32 mmol/L [facility] Anion gap 11 2 - 15 mmol/L [facility] BUN 16 6 - 25 mg/dL [facility] Creatinine 0.96 0.60 - 1.10 mg/dL [facility] Glucose 103 70 - 199 mg/dL [facility] Comment: Interpretive Data Fasting glucose >/= 126 mg/dl is diagnostic for diabetes. Fasting is defined as no caloric intake for at least 8 hours. Fasting glucose between 100 mg/dl to 125 mg/dl is diagnostic of prediabetes. In a patient with classic symptoms of hyperglycemia or hyperglycemic crisis, a random glucose >/= 200 mg/dl is diagnostic for diabetes. In the absence of unequivocal hyperglycemia, results should be confirmed by repeat testing. The classification and Diagnosis of Diabetes Diabetes Care 2021; 46: S19-S40. Current interpretive data was last revised 2022. Calcium 10.1 8.5 - 10.3 mg/dL [facility] Bilirubin, total 0.4 0.1 - 1.2 mg/dL [facility] Protein, pl 6.8 6.5 - 8.5 g/dL [facility] Albumin 4.2 3.5 - 5.0 g/dL [facility] Alk phos 83 40 - 130 Units/L [facility] ALT 12 7 - 45 Units/L [facility] AST 23 10 - 45 Units/L [facility] Blood 06/19/2025 2:33 PM CDT 06/19/2025 2:36 PM CDT us Yasir Gonzalez MD LAB BLOOD ORDERAB LES Final Result [facility] Department [place] [address] * Diagnostic Mammogram Bilateral W Reese (05/07/2025 2:56 PM CDT) Anatomical Region Laterality Modality Breast Bilateral Mammography 05/07/2025 3:37 PM CDT Impressions 05/07/2025 3:37 PM CDT Questionable area of architectural distortion in the right upper breast that partially effaces on the additional imaging, seen only on the MLO views. Further evaluation with breast MRI is recommended. In the absence of an MRI correlate, short-term follow-up may be performed with right breast diagnostic mammography in 6 months. OVERALL FINAL ASSESSMENT: BI-RADS Category 3: Probably Benign. RECOMMENDATION: Breast MRI with IV contrast. In the absence of suspicious MRI correlate, short-term follow-up with right breast mammogram. Electronically signed by: Radha Tilley M.D. Narrative 05/07/2025 3:37 PM CDT EXAMINATION: DIAGNOSTIC MAMMOGRAM BILATERAL W REESE, US BREAST RIGHT LIMITED HISTORY: 65-year-old female with history of left breast invasive ductal carcinoma treated conservatively. COMPARISON: Priors dating back to 2021 TECHNIQUE: Full field digital mammographic views of BOTH breasts were performed, including computer aided detection (CAD) and digital breast tomosynthesis (DBT). Targeted right breast ultrasound was performed by a trained dianeticist. BREAST PARENCHYMAL COMPOSITION: The breasts are extremely dense, which lowers the sensitivity of mammography. MAMMOGRAM FINDINGS: Right breast postbiopsy changes are present. Left breast conservation therapy changes are present. There is a questionable area of architectural distortion in the right upper breast seen only on the MLO view that partially effaces on the additional imaging and does not persist on the ML imaging. Ultrasound findings: There is no sonographic correlate to the questioned mammographic finding. No suspicious cystic or solid masses visualized. 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 Relationship Specialty Start Date End Date Yossi Reaves MD [address] [facility] [address] [place] [address] PCP - General Family Practice 09/02/23 Yasir Gonzalez MD [address] [place] [address] Consulting Physician Medical Oncology 03/08/22 Aft, Ciara Dorsey MD PhD [address] [place] [address] Surgeon Surgical Oncology 03/16/22 Monika Bryant MD [address] [facility] [address] [place] [address] Radiation Oncologist Radiation Oncology 11/25/22 Yeny Oliveira, PhD [address] [facility] [address] [place] [address] Nurse Practitioner Radiation Oncology 02/07/23 Jessenia Vaughn NP [address] [place] [address] Nurse Practitioner Nurse Practitioner 09/05/23
--- OUTSIDE RECORDS SUMMARY | 2025-08-27 09:32 | XMS_ITS | Encounter Summary ---
Author Organization [facility] Address [address] [place] [address] Phone Care Team Providers Care Supervisor Gelatin Plant Name Role Phone Yasir Gonzalez MD Unavailable Aft, Ciara Dorsey MD PhD Unavailable [phone] Monika Bryant MD Unavailable Yeny Oliveira PhD Unavailable [phone] Yossi Reaves MD Primary Care Provider [phone] Jessenia Vaughn CITY DISTRIBUTION CLERK Unavailable [phone] Encounter Details Date Type Department Care Team [...] on file Legal Sex Female 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 DIRECTOR OF INSTITUTIONAL SALES Gender Identity Female 03/11/2022 12:06 PM CDT [...] on filedocumented in this encounter Care Teams Supervisor Gelatin Plant Relationship Specialty Start Date End Date Yossi Reaves MD [address] [facility] [address] [place] [address] PCP - General Family Practice 09/02/23 Yasir Gonzalez MD [address] [place] [address] Consulting Physician Medical Oncology 03/08/22 Aft, Ciara Dorsey MD PhD [address] [place] [address] Surgeon Surgical Oncology 03/16/22 Monika Bryant MD [address] [facility] [address] [place] [address] Radiation Oncologist Radiation Oncology 11/25/22 Yeny Oliveira, PhD [address] [facility] [address] [place] [address] Nurse Practitioner Radiation Oncology 02/07/23 Jessenia Vaughn NP [facility] [place] [place] [address] Nurse Practitioner Nurse Practitioner 09/05/23 documented as of this encounter
--- OUTSIDE RECORDS SUMMARY | 2025-08-27 09:32 | XMS_ITS | Encounter Summary ---
Author Organization [facility] Address [address] [place] [address] Care Team Providers Care Job Coach/Job Developer Name Role Phone Wei Swan MD Primary Care Provider [phone] Encounter Details Date Type Department Care Team (Late st Contact Info) Description 06/19/2020 Lab Requisition [facility] Care DermPath Lab [address] 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 FISHER Gender Identity Not on file Sexual Orientation Not on file documented as of this encounter Plan of Treatment Not on file documented as of this encounter Procedures Procedure Name Priority Date/Time Associated Diagnosis Comments DERMATOPATHOLOGY Routine 06/18/2020 12:0 0 AM CDT documented in this encounter Results * DERMATOPATHOLOGY (06/18/2020 12:00 AM CDT) Case Report Dermatopathology Report Case: [id number] Authorizing Provider: Phillip Sims MD Collected: 06/18/2020 12:00 AM Ordering Location: [facility] Care DermPath Lab Received: 06/19/2020 12:27 [...] specimen consists of a shave biopsy measuring [id number]. Jar 0. Specimen B: Received is one formalin filled container labeled with the patient's name and designated dependent left lat breast. The specimen consists of a shave biopsy (2 pieces) measuring [id number] & [id number]. Jar 0. 0 12:34 PM CDT DERMATOPATHOLOGY [...] characteristic determined by the Dermatopathology Laboratory at [facility], directed by Dr. Deepthi Larson. These tests need not be, and therefore are not, approved by the [place] Food and Drug Administration. The tests are used for clinical purposes. Billing Codes Specimen Charges Stain Charges 89800 70571 1 1 [id number] 18782 1 1 0 12:34 PM CDT DERMATOPATHOLOGY LABORATORY Embedded Images 0 12:34 PM CDT DERMATOPATHOLOGY LABORATORY Pathology/Cytology TISSUE SPECIMEN FROM SKIN / Unknown 06/18/2020 06/19/2020 12:27 PM CDT Miscellaneous samples (specimen) TISSUE SPECIMEN FROM SKIN / Unknown 06/18/2020 06/19/2020 12:27 PM CDT Phillip Sims MD LAB - PATHOLOGY/CYTOLOGY ORD ERABLES Final Result DERMATOPATHOLOGY LABORATORY [facility] - Department of Dermatology [facility]/[address] [phone] documented in this encounter Visit Diagnoses Not on filedocumented in this encounter Care Teams Job Coach/Job Developer Relationship Specialty Start Date End Date Wei Swan MD [address] [place] [address] PCP - General 06/28/17 documented as of this encounter
--- OUTSIDE RECORDS SUMMARY | 2025-08-27 09:32 | XMS_ITS ---
Author Organization [facility] Address [address] [place] [address] Care Team Providers Care Software Implementation Project Manager Name Role Phone Yasir Gonzalez MD Unavailable Aft, Ciara Dorsey MD PhD Unavailable Monika Bryant MD Unavailable Yeny Oliveira PhD Unavailable [phone] Yossi Reaves MD Primary Care Provider [phone] Jessenia Vaughn CAN FILLING AND CLOSING MACHINE TENDER Unavailable [phone] Active Problems Problem Noted Date Diagnosed Date [...] from 02/24/2022:Stage IIA(cT2, cN0(f), cM0, G3, ER+, MS+, HER2-) - Signed by Ilda Jenkins MD on 11/25/2022 Pathologic stage from 10/05/2022:No Stage Recommended(ypT1a, pN1mi(sn), cM0, GX, ER+, MS+, HER2-) - Signed by Ilda Jenkins MD on 11/25/2022 Overview (03/08/2022): Added automatically from request for surgery [id number] Assessment & Plan (05/03/2022 12:59 PM CDT): [...]
--- OUTSIDE RECORDS SUMMARY | 2025-08-27 09:32 | XMS_ITS | Encounter Summary ---
Author Organization [facility] Address [address] [place] [address] Care Team Providers Care Treating Plant Supervisor Name Role Phone Unavailable Primary Care Provider Unavailabl e Encounter Details Date Type Department Care Team (Latest Contact Info) Description 2000 Outpatient Historical [facility] Clinton Mota MD NO ADDRESS ON FILE Female infertility of unspecified origin (Primary Dx) Social History Tobacco Use Types Packs/Day Years Used Date Smoking Tobacco: Never Assessed Comments Unknown Sex and Gender Information Value Date Recorded Sex Assigned at Not on file Legal 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
--- OUTSIDE RECORDS SUMMARY | 2025-08-27 09:32 | XMS_ITS | Encounter Summary ---
Author Organization [facility] Address [address] [place] [address] Phone Care Team Providers Care Supervisor Reactor Fueling Name Role Phone Yasir Gonzalez MD Unavailable Aft, Ciara Dorsey MD PhD Unavailable [phone] Monika Bryant MD Unavailable Yeny Oliveira PhD Unavailable [phone] Yossi Reaves MD Primary Care Provider [phone] Jessenia Vaughn PHYSICAL EDUCATION INSTRUCTOR Unavailable [phone] Encounter Details Date Type Department Care Team [...] on file Legal Sex Female 2:50 AM HUMANITIES DEPARTMENT CHAIR Gender Identity Female 03/11/2022 12:06 PM CDT [...] filedocumented in this encounter Care Teams Supervisor Reactor Fueling Relationship Specialty Start Date End Date Yossi Reaves MD [address] [place] [address] PCP - General Family Practice 09/02/23 Yasir Gonzalez MD [address] [place] [address] Consulting Physician Medical Oncology 03/08/22 Aft, Ciara Dorsey MD PhD [address] [place] [address] Surgeon Surgical Oncology 03/16/22 Monika Bryant MD [address] [place] [address] Radiation Oncologist Radiation Oncology 11/25/22 Yeny Oliveira, PhD [address] [place] [address] Nurse Practitioner Radiation Oncology 02/07/23 Jessenia Vaughn NP [address] [place] [address] Nurse Practitioner Nurse Practitioner 09/05/23 documented as of this encounter
--- OUTSIDE RECORDS SUMMARY | 2025-08-27 09:33 | XMS_ITS | Encounter Summary ---
Author Organization [employer] [facility] Address [address] [place] [address] Care Team Providers Care Dump Worker Name Role Phone Unavailable Primary Care Provider Unavailabl e Encounter Details Date Type Department Care Team (Latest Contact Info) Description 12/01/1999 Outpatient Historical [facility] Clinton Mota MD NO ADDRESS ON FILE Female infertility of unspecified origin (Primary Dx) Social History Tobacco Use Types Packs/Day Years Used Date Smoking Tobacco: Never Assessed Comments Unknown Sex and Gender Information Value Date Recorded Sex Assigned at Not on file Legal Sex Female 4:53 AM EXAMINING OFFICER Gender Identity Not on file Sexual Orientation Not on file documented as of this encounter Plan of Treatment Not on file documented as of this encounter Visit Diagnoses Diagnosis Female infertility of unspecified origin- Primary documented in this encounter
--- OUTSIDE RECORDS SUMMARY | 2025-08-27 09:33 | XMS_ITS | Clinical Summary ---
Author Organization [facility] Address [address] Robertn: Epic Prelude ADT [place] [address] Care Team Providers Care Enrobing Machine Feeder Name Role Phone Unavailable Primary Care Provider Unavailabl e Social History Tobacco Use Types Packs/Day Years Used Date Smoking Tobacco: Never Assessed Comments Unknown Sex and Gender Information Value Date Recorded Sex Assigned at Not on file Legal Sex Female 4:53 AM SORTING COWS WORKER Gender Identity Not on file Sexual [...] (1 of 2) 2011 INFLUENZA VACCINE (#1) 2025 RSV VACCINE (60+ or ) (1 - 1-dose 75+ series) 02/04/2036
--- OUTSIDE RECORDS SUMMARY | 2025-08-27 09:33 | XMS_ITS | Encounter Summary ---
Author Organization [facility] Address [address] [place] [address] Care Team Providers Care Second Vp Hr Assessment Name Role Phone Unavailable Primary Care Provider Unavailabl e Encounter Details Date Type Department Care Team (Latest Contact Info) Description 03/06/2000 Outpatient Historical [facility] Clinton Mota MD NO ADDRESS ON FILE Female infertility of unspecified origin (Primary Dx) Social History Tobacco Use Types Packs/Day Years Used Date Smoking Tobacco: Never Assessed Comments Unknown Sex and Gender Information Value Date Recorded Sex Assigned at Not on file Legal Sex Female 4:53 AM FRENCH PROFESSOR Gender Identity Not on file Sexual Orientation Not on file documented as of this encounter Plan of Treatment Not on file documented as of this encounter Visit Diagnoses Diagnosis Female infertility of unspecified origin- Primary documented in this encounter
--- OUTSIDE RECORDS SUMMARY | 2025-08-27 09:33 | XMS_ITS | Encounter Summary ---
Author Organization [facility] Address [address] [place] [address] Phone Care Team Providers Care Gear Tooth Grinding Machine Operator Name Role Phone Yasir Gonzalez MD Unavailable Aft, Ciara Dorsey MD PhD Unavailable [phone] Monika Bryant MD Unavailable Yeny Oliveira PhD Unavailable [phone] Yossi Reaves MD Primary Care Provider [phone] Jessenia Vaughn PROFESSOR/NURSE ANESTHETIST Unavailable [phone] Encounter Details Date Type Department Care Team (Latest Contact Info) Description 04/10/2025 Orders Only [facility] Scanning, Provider [...] on file Legal Sex Female 2:50 AM CHEMISTRY TECHNICIAN Gender Identity Female 03/11/2022 12:06 PM CDT Sexual Orientation Straight 03/11/2022 12 :06 PM CDT documented as of this encounter Plan of Treatment Not on file documented as of this encounter Procedures Procedure Name Priority Date/Time Associated Diagnosis Comments SCAN - PATHOLOGY 04/10/2025 documented in this encounter Results * SCAN - PATHOLOGY (04/10/2025) us Provider Scanning Final Result documented in this encounter Visit Diagnoses Not on filedocumented in this encounter Care Teams Gear Tooth Grinding Machine Operator Relationship Specialty Start Date End Date Yossi Reaves MD [address] [place] [address] PCP - General Family Practice 09/02/23 Yasir Gonzalez MD [address] [place] [address] Consulting Physician Medical Oncology 03/08/22 Aft, Ciara Dorsey MD PhD [address] [place] [address] Surgeon Surgical Oncology 03/16/22 Monika Bryant MD [address] [place] [address] Radiation Oncologist Radiation Oncology 11/25/22 Yeny Oliveira, PhD [address] [place] [address] Nurse Practitioner Radiation Oncology 02/07/23 Jessenia Vaughn NP [address] [place] [address] Nurse Practitioner Nurse Practitioner 09/05/23 documented as of this encounter
--- OUTSIDE RECORDS SUMMARY | 2025-08-27 09:33 | XMS_ITS | Encounter Summary ---
Author Organization [facility] Address [address] [place] [address] Care Team Providers Care Sewer Head Name Role Phone Unavailable Primary Care Provider [...] on file Legal Sex Female 4:53 AM CATH LAB TECH Gender Identity Not on file Sexual Orientation Not on file documented as of this encounter Plan of Treatment Not on file documented as of this encounter Visit Diagnoses Diagnosis 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
--- OUTSIDE RECORDS SUMMARY | 2025-08-27 09:33 | XMS_ITS | Encounter Summary ---
Author Organization [facility] Address [address] [place] [address] Care Team Providers Care Alterations Sewer Name Role Phone Unavailable Primary Care [...] on file Legal Sex Female 4:53 AM CRYSTAL GROWING TECHNICIAN Gender Identity Not on file Sexual Orientation Not on file documented as of this encounter Plan of Treatment Not on file documented as of this encounter Visit Diagnoses Diagnosis Endometriosis of fallopian tube- Primary documented in this encounter
--- OUTSIDE RECORDS SUMMARY | 2025-08-27 09:33 | XMS_ITS | Encounter Summary ---
Author Organization [facility] Address [address] [place] [address] Care Team Providers Care Trial Attorney Name Role Phone Unavailable Primary Care Provider [...] on file Legal Sex Female 4:53 AM TIRE BUSTER Gender Identity Not on file Sexual Orientation Not on file documented as of this encounter Plan of Treatment Not on file documented as of this encounter Visit Diagnoses Diagnosis Investigation and testing for procreation management- Primary documented in this encounter
[2025-09-19 11:45] VITALS: BMI 26.1
--- NOTE | 2025-09-19 11:45 | WPDHOMESLEEP ---
Sleep Study - Home Unattended Date of Study: 08/27/25 Ordering Provider: Maria Elena Garcia APRN Interpreting Provider: Qiana Henderson, DO Home Sleep Study Type: Watch PAT Height: 1.65 m Weight: 71.214 kg Body Mass Index: 26.1 Neck Circumference (inches): 14 [place]: 8 Reason for Sleep Study snoring Sleep History The patient is a 65-year-old female that had a sleep study ordered by her primary care for evaluation of sleep apnea. The patient rarely awakens from sleep short of breath. She frequently awakens at night with heartburn, belching or cough. She frequently snores and is frequently loud enough that others complain. She frequently has trouble sleeping when she has a cold. She rarely wakes up gasping for air throughout the night. She frequently has breathing problems at night observed by herself or others. She occasionally sweats excessively at night. She rarely has heart palpitations or irregular heartbeats during the night. She denies falling asleep during the day. She rarely falls asleep while driving. She denies sleep paralysis, cataplexy and hypnagogic/ hypnopompic hallucinations. She denies feeling afraid of going to sleep. She rarely has nightmares. She occasionally remembers her dreams. She occasionally has thoughts racing through her mind. She rarely feels sad or depressed. She frequently has anxiety. She occasionally has muscular tension. She denies noticing parts of her body jerk. She rarely kicks during the night. She occasionally has crawling and aching feelings in her legs and occasionally has leg pain during the night. She frequently grinds her teeth during sleep but rarely awakens with morning jaw pain. She is occasionally bothered by pain during the day and occasionally awakened by pain during the night. She occasionally wakes up feeling stiff in the morning. She rarely wakes up with sore or achy muscles. She occasionally wakes up with pain in the neck, spine and other joints. She goes to bed at 11:30 p.m. on weekdays and at 12:30 a.m. on the weekends. It takes her 15-20 minutes to fall asleep. She wakes up 1-2 times throughout the night to urinate and is able to fall back asleep within 5 minutes. She wakes up at 5:00 a.m. on weekdays and at 7:00 a.m. on the weekends. She typically gets 8 hours of sleep per night. She will stay in bed for 10-15 minutes after waking up in the morning. She currently lives with her. She denies consuming any caffeinated beverages within 2 hours of bedtime. She denies engaging in physical exercise before bedtime. She will watch television before falling asleep. She denies taking naps in afternoon or the evening. She consumes 1-2 cups of caffeinated beverage per day. She denies tobacco, alcohol and recreational drug use. [facility] Past Medical History Medical History Breast cancer COVID-19 Cervicalgia Chronic low back pain Back pain associated with peripheral numbness Screening for colon cancer Screening for breast cancer Postmenopausal SVT (supraventricular tachycardia) 2010 History of tongue cancer Anxiety and depression Attention deficit hyperactivity disorder (ADHD), combined type Grade II diastolic dysfunction Mitral valve prolapse Other and unspecified hyperlipidemia Primary insomnia Surgical History Surgical History History of laparoscopic cholecystectomy 05/09/20 H/O rectal sphincterotomy Endometriosis determined by laparoscopy History of tonsillectomy H/O section S/P bunionectomy History of carpal tunnel release Family History Family History Mother Alzheimer disease Unknown Colon cancer Social History Social History Smoking status: Never smoker Second hand tobacco smoke exposure: No Alcohol intake: current Alcohol use details: a glass of wine every night with dinner Substance use: never Substance use type: does not use Do You Feel Safe in your Home?: Yes Lack of Transportation: No Lack of Food: Never True Current Housing: I Have Housing Concerned About Future Housing: No Difficulty Paying Gas/Electric Bills: No Difficulty Paying for Meds: No Currently Unemployed: No Education: Master's Degree or Higher Difficulty w/ Childcare or Family Care: No Living arrangements: with family Occupation/Education: occupation Gender identity (if verbalized by the patient): Female Sexual Orientation (if Verbalized by the Patient): Straight or Heterosexual Spiritual care concerns: No Agree to blood products: Yes Medications Home Medications ?Medication ?Instructions ?Recorded ?Confirmed ?Type anastrozole 1 mg tablet 1 mg PO DAILY #1 tablet 03/01/23 04/22/25 Rx prochlorperazine maleate 10 mg 10 mg PO Q8H PRN nausea and 03/01/23 04/22/25 Rx tablet vomiting #1 tablet gabapentin 300 mg capsule 300 mg PO BID 10/04/23 04/22/25 History vibegron 75 mg tablet (Gemtesa) 75 mg PO DAILY 10/04/23 04/22/25 History dicyclomine 20 mg tablet 20 mg PO QID PRN abdominal pain 04/10/24 04/22/25 History abemaciclib 150 mg tablet 150 mg PO BID 10/15/24 04/22/25 History (Verzenio) carvedilol phosphate 40 mg See Rx Instructions .Route 01/31/25 04/22/25 Rx capsule,ext.[id number] multiphase .COMPLEX #90 caps ondansetron 4 mg disintegrating 4 mg PO Q8H PRN nausea and 04/02/25 04/22/25 Rx tablet vomiting #7 tabs duloxetine 60 mg capsule,delayed See Rx Instructions .Route 04/17/25 04/22/25 Rx release .COMPLEX #90 caps biotin 10,000 mcg capsule mcg PO 04/22/25 04/22/25 History calcium carbonate 600 mg PO BID 04/22/25 04/22/25 History fluticasone propionate 50 2 spray intranasal DAILY #16 mL 04/22/25 04/22/25 Rx mcg/actuation nasal spray,suspension (Flonase Allergy Relief) multivitamin (Daily Multi-Vitamin 1 tablet PO DAILY 04/22/25 04/22/25 History tablet) omeprazole 20 mg capsule,delayed 20 mg PO DAILY #90 caps 04/22/25 04/22/25 Rx release scopolamine base 1 mg over 3 days 1 patch transdermal Q3D PRN motion 04/22/25 04/22/25 Rx transdermal patch sickness #10 ea trazodone 100 mg tablet 200 mg (2 x 100 mg) PO HS #180 tabs 04/22/25 04/22/25 Rx vitamin B complex 1 tablet PO DAILY 04/22/25 04/22/25 History pravastatin 40 mg tablet See Rx Instructions .Route 08/27/25 Rx .COMPLEX #90 tabs dextroamphetamine-amphetamine 15 15 mg PO BID #60 tabs 09/11/25 Rx mg tablet (Adderall) Sleep Procedure The sleep study was completed using [employer] a technically adequate device with seven channels: peripheral arterial tone, actigraphy, body position, snore, respiratory movement, pulse oximetry, sleep staging, and heart rate. Prior to using the device, the patient received verbal and written instructions for its application and was provided with the help desk phone number for additional telephonic instruction with 24-hour availability of qualified personnel to answer questions. The study was scored using CMS guidelines. Sleep Architecture The total recording time is 8 hrs, 7 min. The total sleep time is 6 hrs, 24 min. Sleep latency is 6 minutes. REM latency is 79 minutes. The patient had 17 episodes of waking. Sleep architecture shows 7.3% deep sleep, 81.4% light sleep, and (as % Total Sleep Time) showed NREM (Light 81.4%; Deep 7.3%), and a 11.4% stage REM. The patient spent 3.1% of total sleep time in the supine position. Sleep efficiency was 78.85. Respiratory Analysis The overall AHI (pAHI 4%:) is 4.2. The overall AHI (pAHI 3%:) is 6.9. The central AHI is 1.0. The AHI was 6.7 in NREM and 8.4 in REM sleep. The AHI was 40.0 in Supine and 5.7 in Non-supine sleep. Percent of Jamari Ornelas respirations is 0.0. Oximetry Data The oxygen desaturation index (DARNELL 4%:) is 2.7. The mean saturation is 95%, and the lowest saturation is 90%. Time spent with saturation < 88% is 0.0 minutes. Snoring Profile Snoring average intensity is 40 dB. The patient snored above 45 decibels for 9.4 minutes, 2.4% of sleep time. Cardiac Profile The average pulse rate is 78 beats per minutes. The lowest pulse rate is 63 bpm. The highest pulse rate reported is 113 bpm. Atrial fibrillation was not detected. Premature beats occur <0.1 per minute. Assessment and Plan Assessment and Plan (1) STEVE (obstructive sleep apnea): Code(s): G47.33 - Obstructive sleep apnea (adult) (pediatric) Status: Acute Assessment and Plan: Per AASM criteria (pAHI 3%), the patient had an overall AHI of 6.9 with desaturation down to 90%. This is consistent with mild sleep apnea. Due to the patient's insomnia, she qualifies for treatment. I recommend that the patient be prescribed AutoPAP 5-15 cm H2O, CPAP mask/filters/tubing and heated humidity. A mandibular advancement device is also an acceptable treatment option. This should be used with all episodes of sleep.? Compliance should be reviewed within 31-90 days of starting therapy for usage greater than 4 hours per night greater than 70% of the nights. The patient should be asked about symptoms such as?excessive daytime sleepiness, quality of sleep, decreased nocturia, increased?mental functioning such as memory, mood, and concentration. Per CMS criteria (pAHI 4%), the patient had an overall AHI of 4.2 with desaturation down to 90%.This is not consistent with sleep-disordered breathing. If the patient's insurance company only recognizes CMS guidelines, she would not qualify for treatment. I recommend that she have a split study with the use of a hypnotic to ensure we obtain enough sleep data. Data The data obtained during this sleep study is adequate for interpretation. Certification This sleep study has been reviewed by a board certified sleep medicine physician.
== END 2025-08-28 11:47 | disposition home or self-care (01) ==
PROVIDERS: PCP Nurse Practitioner Family; Visit Provider Nurse Practitioner Family
DX: G47.30 Sleep apnea, unspecified (principal); G47.33 Obstructive sleep apnea (adult) (pediatric)
CPT/HCPCS: 95800

== ENCOUNTER 2025-10-11 12:02 | Emergency (ER) | payer OTHER, SELFPAY ==
--- OUTSIDE RECORDS SUMMARY | 2016-07-06 23:00 | XMS_ITS | Encounter Summary ---
Author Organization [facility] Healthcare Address [address] [place] [address] Care Team Providers Care Japanese Professor Name Role Phone Wei Swan MD Primary Care Provider [phone] Reason for Visit * Diagnostic Imaging (Routine) - Closed Specialty Diagnoses / Procedures Referred By Contac t Referred To Contact Procedures Breast Imaging Screening Outside Reference Aft, Ciara Dorsey MD PhD [address] [place] [address] Phone: tel: fax: Referral ID Status Reason Start Date Expiration Date Visits Re quested Visits Authorized [id number] Closed 01/26/2022 02/25/2023 1 1 Encounter Details Date Type Department Care Team (Late st Contact Info) Description 07/07/2016 Hospital Encounter [facility] [address], [place] [id number] Social History Tobacco Use Types Packs/Day Years Used Date Smoking Tobacco: Never Passive Smoke Exposure: Never Smokeless Tobacco: Never AUDIT-C Answer Date Recorded Q1: How often do you have a drink containing alc ohol? Monthly or less 11/25/2022 Q2: How many drinks containi ng alcohol do you have on a typical day when you are drinking? 1 or 2 11/25/2022 Q3: How often do you have si x or more drinks on one occasion? Never 11/25/2022 Comments No Sex and Gender Information Value Date Recorded Sex Assigned at Not on file Legal Sex Female 2:50 AM M1A1 TANK CREWMAN Gender Identity Female 03/11/2022 12:06 PM CDT Sexual Orientation Straight 03/11/2022 12 :06 PM CDT documented as of this encounter Functional Status * In the past year, patient experienced: Question Answer Date of Assessment Author One or more falls in the las t year 2 11/25/2022 9:29 AM Alisson Sun RN How many times? 2 or more 11/25/2022 9:29 AM Alisson Luo Ma, RN Was the patient injured in the fall? No 11/25/2022 9:29 AM Alisson Sun RN Has trouble stepping up onto a curb 1 11/25/2022 9:29 AM Alisson Sun RN Advised to use a cane or walker to get around safely 2 11/25/2022 9:29 AM Krzysztof Sun RN Often has to herrera to the toilet 0 11/25/2022 9:29 AM Alisson Sun RN Feels unsteady when walking 1 11/25/2022 9: 29 AM Alisson Sun RN Has lost some feeling in feet 1 11/25/2022 9:29 AM Alisson Sun RN Steadies self on furniture while walking at home 1 11/25/2022 9:29 AM Alisson Sun RN Takes medicine that makes him/her feel lightheaded or more tired than usual 0 11/25/2022 9:29 AM Alisson Sun RN Worried about falling 1 11/25/2022 9:29 AM Alisson Sun RN Takes medicine to sleep or improve mood 1 11/25/2022 9:29 AM Alisson Sun RN Needs to push with hands whe n rising from a chair 1 11/25/2022 9:29 AM Alisson Sun RN Often feels sad or depressed 0 11/25/2022 9 :29 AM Alisson Sun RN STEADI Score Total 11 11/25/2022 9:29 AM Alisson Sun RN * DALY Fall Risk Interventions Question Answer Date of Assessment Author Interventions applied Yellow armband 11/25/2022 9:30 A M Alisson Sun RN * Question Answer Date of Assessment Author MAP (mmHg) 93 10/05/2022 1:10 PM Joycelyn Griffin RN * Flaquito Fall Risk Question Answer Date of Assessment Author History of Falling 0 10/05/2022 12 :10 PM Joycelyn Ziegler RN Secondary Diagnosis 15 10/05/2022 1 2:10 PM Joycelyn Ziegler RN Ambulatory Aids 0 10/05/2022 12:10 PM Joycelyn Ziegler RN Intravenous Therapy/Heparin/Saline Lock 20 10/05/2022 12:10 PM Joycelyn Ziegler RN Gait/Transferring 10 10/05/2022 12: 10 PM Joycelyn Ziegler RN Mental Status 0 10/05/2022 12:10 PM Joycelyn Ziegler RN Auto Low/High - if selected proceed to interventions (retired) N/A-fall assessment required 03/16/2022 12:49 PM CDZaira Parker RN Morse Fall Risk Score (Score >= 45 places fall precaution order) 45 10/05/2022 12:10 PM Joycelyn Ziegler RN Prior Fall Event (Autopopulated from EMR) None found 10/05/2022 12:10 PM Joycelyn Ziegler RN * Aamir Scale Question Answer Date of Assessment Author Sensory Perceptions 4 10/05/2022 12:10 PM C Joycelyn Hussein RN Moisture 4 10/05/2022 12:10 PM Joycelyn Barnett RN Activity 4 10/05/2022 12:10 PM Joycelyn Barnett RN Mobility 4 10/05/2022 12:10 PM Joycelyn Barnett RN Nutrition 3 10/05/2022 12:10 PM M1A1 TANK CREWMAN Joycelyn Owen RN Friction and Shear 3 10/05/2022 12:10 PM Joycelyn Bender RN Aamir Scale Score 22 10/05/2022 12:10 PM Joycelyn Bender RN * Question Answer Date of Assessment Author BP Method Manual 03/03/2023 3:56 PM CDT rTinity Dorantes PTA * Question Answer Date of Assessment Author BP Location Left arm 09/18/2025 2:24 PM M1A1 TANK CREWMAN Johanny Begum CMA * Fall Risk Interventions Question Answer Date of Assessment Author All Low Fall Interventions Applied Yes 10/05/2022 12:10 PM Joycelyn Ziegler RN All Moderate Fall Interventions Applied No 10/05/2022 12:10 PM Joycelyn Ziegler RN All Moderate Fall Risk Interventions EXCEPT: Fall risk sign with education;Gait belt at bedside;PT eval requested or obtained;OT eval requested or obtained 10/05/2022 12:10 PM Joycelyn Ziegler RN All High Fall Risk Interventions Applied No 10/05/2022 12:10 PM Joycelyn Ziegler RN All High Risk Interventions EXCEPT: Bed alarm;Chair alarm 10/05/2022 12:10 PM Joycelyn Ziegler RN Reason For Exception(s) pacu 10/05/20 12:10 PM Joycelyn Ziegler RN Reason For Exception(s) pacu 10/05/20 12:10 PM Joycelyn Ziegler RN * B.M.A.T. - Bedside Mobility Assessment Tool for Nurses Question Answer Date of Assessment Author Is patient able to participate in the BMAT? Yes 05/02/2022 7:00 PM BETHT Tigist Sun RN BMAT Level Level 4 - Green 05/02/2022 7:00 PM CDT Itzel Mahmood RN * Question Answer Date of Assessment Author 1. Has the patient self-repo rted, presented with clinical signs of, or have a documented history of any of the following within the past 30 days? No 05/01/2022 8:35 PM CDT Itzel Sun RN * Self-Injurious Risk Level Answer Date of Assessment Author No risk level 05/01/2022 8:35 PM CDT Mina Sun RN * Alcohol Withdrawal BP Hierarchy Answer Date of Assessment Author 69 09/02/2023 2:03 PM CDT Colin Sam CMA * Pressure Injury Prevention Question Answer Date of Assessment Author Pressure Ulcer Prevention Interventions Keep skin clean and dry (Sensory Perception/Moisture ) 10/05/2022 6:30 AM Zaira Wasserman RN * AUDIT-C Score Answer Date of Assessment Author 1 11/25/2022 9:34 AM Krzysztof Sun RN * Alcohol Use Question Answer Date of Assessment Author Q1: How often do you have a drink containing alcohol? Monthly or less 11/25/2022 9:34 AM Alisson Sun RN Q2: How many drinks containing alcohol do you have on a typical day when you are drinking? 1 or 2 11/25/2022 9:34 AM Suman Sun RN Q3: How often do you have six or more drinks on one occasion? Never 11/25/2022 9:34 AM Alisson Sun RN * Integumentary Question Answer Date of Assessment Author Skin Color Appropriate for ethnicity 10/05/2022 12:10 PM Joycelyn Ziegler RN Skin Condition/Temp Warm;Dry 10/05/2022 1 2:10 PM Joycelyn Ziegler RN Skin Integrity Surgical incision 10/05/2022 12: 10 PM Joycelyn Ziegler RN Skin Turgor Non-tenting 10/05/2022 12:10 PM Joycelyn Ziegler RN Integumentary Additional Assessments Yes-Aamir 10/05/2022 12:10 PM Joycelyn Ziegler RN Integumentary (WDL) X 10/05/2022 1 2:10 PM Joycelyn Ziegler RN Skin Location R chest, L breast 10/05/2022 12: 10 PM Joycelyn Ziegler RN * Aamir Scale Question Answer Date of Assessment Author Aamir Scale Used Aamir 10/05/2022 12:10 PM Joycelyn Ziegler RN * Question Answer Date of Assessment Author Percent Meal Eaten (%) 50 05/03/2022 12:55 P M BETHT Fannie Domingo RN * Question Answer Date of Assessment Author BP Method Manual 03/03/2023 3:56 PM CDT Trinity Dorantes PTA * Question Answer Date of Assessment Author BP Location Left arm 09/18/2025 2:24 PM M1A1 TANK CREWMAN Johanny Begum CMA * Question Answer Date of Assessment Author Bed In Lowest Position Yes 10/05/2022 12:10 P M Joycelyn Ziegler RN Bed Wheels Locked Yes 10/05/2022 12:10 PM Joycelyn Ziegler RN * Fall Risk Interventions Question Answer Date of Assessment Author All Low Fall Interventions Applied Yes 10/05/2022 12:10 PM Joycelyn Ziegler RN All Moderate Fall Interventions Applied No 10/05/2022 12:10 PM Joycelyn Ziegler RN All Moderate Fall Risk Interventions EXCEPT: Fall risk sign with education;Gait belt at bedside;PT eval requested or obtained;OT eval requested or obtained 10/05/2022 12:10 PM Joycelyn Ziegler RN All High Fall Risk Interventions Applied No 10/05/2022 12:10 PM Joycelyn Ziegler RN All High Risk Interventions EXCEPT: Bed alarm;Chair alarm 10/05/2022 12:10 PM Joycelyn Ziegler RN Reason For Exception(s) pacu 10/05/20 12:10 PM Joycelyn Ziegler RN Reason For Exception(s) pacu 10/05/20 12:10 PM Joycelyn Ziegler RN * Question Answer Date of Assessment Author Hygiene Gown Changed 05/02/2022 7:00 PM Itzel Washington RN Hygiene Level of Assistance Independent 05/01/2022 8:35 PM Itzel Washington RN Bath Bathed/showered with chlorhexidine (CHG) 05/02/2022 7:00 PM Itzel Washington RN * ADL Screening Question Answer Date of Assessment Author Patient's Vision Adequate to Safely Complete Daily Activities Yes 05/01/2022 8:35 PM Itzel Washington RN Patient's Judgement Adequate to Safely Complete Daily Activities Yes 05/01/2022 8:35 PM Itzel Washington RN Patient's Memory Adequate to Safely Complete Daily Activities Yes 05/01/2022 8:35 PM Itzel Washington RN Patient Able to Express Needs/Desires Yes 05/01/2022 8:35 PM BETHT Itzel Sun RN Dressing Independent 05/01/2022 8:35 PM BETHT Itzel Sun RN Grooming Independent 05/01/2022 8:35 PM Itzel Washington RN Feeding Independent 05/01/2022 8:35 PM Itzel Washington RN Bathing Independent 05/01/2022 8:35 PM Itzel Washington RN Toileting Independent 05/01/2022 8:35 PM Itzel Washington RN In/Out Bed Independent 05/01/2022 8:35 PM Itzel Washington RN Walks in Home Independent 05/01/2022 8:35 PM Itzel Figueroa RN Weakness of Legs Both 09/20/2022 2:04 PM Cleo Fergsuon, RN Weakness of Arms/Hands None 09/20/2022 2:04 PM Cleo Aguillon RN Hearing - Right Ear Functional 09/20/2022 2:04 PM CS Cleo Calix, RN Hearing - Left Ear Functional 09/20/2022 2:04 PM Cleo Aguillon RN Dominant hand? Right 05/01/2022 8:35 PM Itzel Vila RN Decline in ADLs in last 2 weeks? No 05/01/2022 8:35 PM Itzel Washington RN * Therapy Consults Question Answer Date of Assessment Author PT Evaluation Needed 2 05/01/2022 8:35 PM Itzel Pollack RN OT Evaluation Needed 2 05/01/2022 8:35 PM C Itzel Alfaro RN HATCHERY LABORER Evaluation Needed 2 05/01/2022 8:35 PM CDT Itzel Sun RN * Assistive Devices Question Answer Date of Assessment Author Assistive Devices/DME Cane;Eyeglasses;Co nt acts 09/20/2022 2:04 PM M1A1 TANK CREWMAN Cleo Solis RN documented as of this encounter Mental Status * Question Answer Entry Date Author Neuro (WDL) WDL 05/03/2022 9:00 AM CDT Fannie Rubalcava RN Other Neuro Symptoms Headache 05/02/2022 8:30 AM C Lisa Grayson RN * Question Answer Entry Date Author Level of Consciousness Drowsy;Responds t o voice 10/05/2022 1:10 PM Joycelyn Ziegler RN Orientation Oriented X4 (person, place, time, situation) 10/05/2022 1:10 PM Joycelyn Ziegler RN Neuro (WDL) X 10/05/2022 1:10 PM Joycelyn Ziegler RN documented in this encounter Plan of Treatment Not on file documented as of this encounter Procedures Procedure Name Priority Date/Time Associated Diagnosis Comments BREAST IMAGING MG SCREENING OUTSIDE REFERENCE Routine 07/07/2016 12:00 AM CDT documented in this encounter Results * Breast Imaging Screening Outside Reference (07/07/2016 12:00 AM CDT) Impressions [facility] - 01/26/2022 3:01 PM CDT These images are for Reference purposes only and have not been reviewed by [facility] Radiology. There will be no report generated by a [facility] Radiologist. Narrative [facility] - 01/26/2022 3:01 PM CDT EXAMINATION: Images For Reference Purposes Only us Ciara Martinez MD PhD IMG MAMMO PROCEDURES Final Result [facility] documented in this encounter Visit Diagnoses Not on filedocumented in this encounter Additional Health Concerns Infection Onset Date Last Indicated Resolved Time COVID: Suspected 05/01/2022 05/01/2022 05/01/2022 4:59 AM CDT documented as of this encounter Care Teams Japanese Professor Relationship Specialty Start Date End Date Wei Swan MD PCP - General 02/22/13 01/13/22 documented as of this encounter
--- OUTSIDE RECORDS SUMMARY | 2017-07-10 23:00 | XMS_ITS | Encounter Summary ---
Author Organization [facility] Healthcare Address [address] [place] [address] Care Team Providers Care Chemical Processor Name Role Phone Wei Swan MD Primary Care Provider [phone] Reason for Visit * Diagnostic Imaging (Routine) - Closed Specialty Diagnoses / Procedures Referred By Contac t Referred To Contact Procedures Breast Imaging Screening Outside Reference Aft, Ciara Dorsey MD PhD [address] [place] [address] Phone: tel: fax: Referral ID Status Reason Start Date Expiration Date Visits Re quested Visits Authorized [id number] Closed 01/26/2022 02/25/2023 1 1 Encounter Details Date Type Department Care Team (Late st Contact Info) Description 07/11/2017 Hospital Encounter [facility] [address] [place], [place] [id number] Social History Tobacco Use Types Packs/Day Years [...] on file Legal Sex Female 2:50 AM EMERGING TECHNOLOGIES DIRECTOR Gender Identity Female 03/11/2022 12:06 PM CDT [...] Barnett RN Nutrition 3 10/05/2022 12:10 PM EMERGING TECHNOLOGIES DIRECTOR Joycelyn Owen RN Friction and Shear 3 10/05/2022 12:10 PM Joycelyn Bender RN Aamir Scale Score 22 10/05/2022 12:10 PM Joycelyn Bender RN * Question Answer Date of Assessment Author BP Method Manual 03/03/2023 3:56 PM CDT Trinity Dorantes PTA * Question Answer Date of Assessment Author BP Location Left arm 09/18/2025 2:24 PM EMERGING TECHNOLOGIES DIRECTOR Johanny Begum CMA * Fall Risk Interventions [...] Surgical incision 10/05/2022 12: 10 PM Joycelyn Zielger RN Skin Turgor Non-tenting 10/05/2022 12:10 PM [...] BP Location Left arm 09/18/2025 2:24 PM EMERGING TECHNOLOGIES DIRECTOR Johanny Begum CMA * Question Answer Date [...] Evaluation Needed 2 05/01/2022 8:35 PM C Itezl Alfaro RN SEMICONDUCTOR WAFERS MARKER Evaluation Needed 2 05/01/2022 8:35 PM CDT Itzel Sun RN * Assistive Devices Question Answer Date of Assessment Author Assistive Devices/DME Cane;Eyeglasses;Co nt acts 09/20/2022 2:04 PM EMERGING TECHNOLOGIES DIRECTOR Cleo Solis RN documented as of this [...] only and have not been reviewed by [facility] Radiology. There will be no report generated by a [facility] Radiologist. Narrative RAD_MAMMO_[facility] - 01/26/2022 2:58 PM CDT EXAMINATION: Images For Reference Purposes Only us Ciara Martinez MD PhD IMG MAMMO PROCEDURES Final Result RAD_MAMMO[facility] documented in this encounter Visit Diagnoses Not on filedocumented in this encounter Additional Health Concerns Infection Onset Date Last Indicated Resolved Time COVID: Suspected 05/01/2022 05/01/2022 05/01/2022 4:59 AM CDT documented as of this encounter Care Teams Chemical Processor Relationship Specialty Start Date End Date Wei Swan MD PCP - General 02/22/13 01/13/22 documented as of this encounter
--- OUTSIDE RECORDS SUMMARY | 2017-07-24 23:00 | XMS_ITS | Encounter Summary ---
Author Organization [facility] Healthcare Address [address] [place] [address] Care Team Providers Care Piano Refinisher Name Role Phone Wei Swan MD Primary Care Provider [phone] Reason for Visit * Diagnostic Imaging (Routine) - Closed Specialty Diagnoses / Procedures Referred By Contac t Referred To Contact Procedures Breast Imaging Diagnostic Outside Reference Aft, Ciara Dorsey MD PhD [address] [place] [address] Phone: tel: fax: Referral ID Status Reason Start Date Expiration Date Visits Re quested Visits Authorized [id number] Closed 01/26/2022 02/25/2023 1 1 Encounter Details Date Type Department Care Team (Late st Contact Info) Description 07/25/2017 [address] Encounter [facility] [address] [place], [place] [phone] Social History Tobacco Use Types Packs/Day Years [...] on file Legal Sex Female 2:50 AM STRATEGIC MANAGER Gender Identity Female 03/11/2022 12:06 PM [...] EMR) None found 10/05/2022 12:10 PM Joycelyn Zieglre RN * Aamir Scale Question Answer Date of Assessment Author Sensory Perceptions 4 10/05/2022 12:10 PM C Joycelyn Hussein RN Moisture 4 10/05/2022 12:10 PM Joycelyn Barnett RN Activity 4 10/05/2022 12:10 PM Joycelyn Barnett RN Mobility 4 10/05/2022 12:10 PM Joycelyn Barnett RN Nutrition 3 10/05/2022 12:10 PM STRATEGIC MANAGER Joycelyn Owen RN Friction and Shear 3 10/05/2022 12:10 PM Joycelyn Bender RN Aamir Scale Score 22 10/05/2022 12:10 PM Joycelyn Bender RN * Question Answer Date of Assessment Author BP Method Manual 03/03/2023 3:56 PM CDT Trinity Dorantes PTA * Question Answer Date of Assessment Author BP Location Left arm 09/18/2025 2:24 PM STRATEGIC MANAGER Johanny Begum CMA * Fall Risk [...] BP Location Left arm 09/18/2025 2:24 PM STRATEGIC MANAGER Johanny Begum CMA * Question Answer [...] 05/01/2022 8:35 PM C Itzel Alfaro RN CASH REGISTER SERVICER Evaluation Needed 2 05/01/2022 8:35 PM CDT Itzel Sun RN * Assistive Devices Question Answer Date of Assessment Author Assistive Devices/DME Cane;Eyeglasses;Co nt acts 09/20/2022 2:04 PM STRATEGIC MANAGER Cleo Solis RN documented as of [...] [facility]. Narrative RAD_M[facility]MO[facility] - 01/26/2022 2:59 PM CDT EXAMINATION: Images For Reference Purposes Only us Ciara Martinez MD PhD IMG MAMMO PROCEDURES Final Result RAD_M[facility]MO[facility] documented in this encounter Visit Diagnoses Not on filedocumented in this encounter Additional Health Concerns Infection Onset Date Last Indicated Resolved Time COVID: Suspected 05/01/2022 05/01/2022 05/01/2022 4:59 AM CDT documented as of this encounter Care Teams Piano Refinisher Relationship Specialty Start Date End Date Wei Swan MD PCP - General 02/22/13 01/13/22 documented as of this encounter
--- OUTSIDE RECORDS SUMMARY | 2017-07-24 23:05 | XMS_ITS | Encounter Summary ---
Author Organization [facility] Healthcare Address [address] [place] [address] Care Team Providers Care Manager Urology Name Role Phone eWi Swan MD Primary Care Provider [phone] Reason for Visit * Diagnostic Imaging (Routine) - Closed Specialty Diagnoses / Procedures Referred By Contac t Referred To Contact Procedures Breast Imaging US Outside Reference Aft, Ciara Dorsey MD PhD [address] [place] [address] Phone: tel: fax: Referral ID Status Reason Start Date Expiration Date Visits Re quested Visits Authorized [id number] Closed 01/26/2022 02/25/2023 1 1 Encounter Details Date Type Department Care Team (Late st Contact Info) Description 07/25/2017 12:05 AM CDT Hospital Encounter [facility] Radiology [facility] [address] [place] [phone] Social History Tobacco Use Types Packs/Day Years [...] on file Legal Sex Female 2:50 AM IN FLIGHT CREW MEMBER Gender Identity Female 03/11/2022 12:06 PM CDT [...] at home 1 11/25/2022 9:29 AM Alisson uSn RN Takes medicine that makes him/her feel [...] (retired) N/A-fall assessment required 03/16/2022 12:49 PM CDT Zaira Novoa RN Morse Fall Risk Score (Score >= [...] Barnett RN Nutrition 3 10/05/2022 12:10 PM IN FLIGHT CREW MEMBER Joycelyn Owen RN Friction and Shear 3 10/05/2022 12:10 PM Joycelyn Bender RN Aamir Scale Score 22 10/05/2022 12:10 PM Joycelyn Bender RN * Question Answer Date of Assessment Author BP Method Manual 03/03/2023 3:56 PM CDT Trinity Dorantes PTA * Question Answer Date of Assessment Author BP Location Left arm 09/18/2025 2:24 PM IN FLIGHT CREW MEMBER Johanny Begum CMA * Fall Risk Interventions [...] in the BMAT? Yes 05/02/2022 7:00 PM CDT Tigist Sun RN BMAT Level Level 4 [...] Scale Used Aamir 10/05/2022 12:10 PM Joycelyn Ziegler, MELVI * Question Answer Date of Assessment Author Percent Meal Eaten (%) 50 05/03/2022 12:55 P M BETHT Fannie Domingo RN * Question Answer Date of Assessment Author BP Method Manual 03/03/2023 3:56 PM CDT Trinity Dorantes PTA * Question Answer Date of Assessment Author BP Location Left arm 09/18/2025 2:24 PM IN FLIGHT CREW MEMBER Johanny Begum CMA * Question Answer Date [...] of Legs Both 09/20/2022 2:04 PM Cleo Ferguson RN Weakness of Arms/Hands None 09/20/2022 2:04 PM Cleo Aguillon RN Hearing - Right Ear Functional 09/20/2022 2:04 PM CS Cleo Calix RN Hearing - Left Ear Functional 09/20/2022 [...] 05/01/2022 8:35 PM C Itzel Alfaro RN CREDIT COLLECTIONS ANALYST Evaluation Needed 2 05/01/2022 8:35 PM CDT Itzel Sun RN * Assistive Devices Question Answer Date of Assessment Author Assistive Devices/DME Cane;Eyeglasses;Co nt acts 09/20/2022 2:04 PM IN FLIGHT CREW MEMBER Cleo Solis RN documented as of this [...] Priority Date/Time Associated Diagnosis Comments BREAST IMAGING US OUTSIDE REFERENCE Routine 07/25/2017 12:05 AM CDT documented in this encounter Results * Breast Imaging US Outside Reference (07/25/2017 12:05 AM CDT) Impressions RAD_M[facility]MO[facility] - 01/26/2022 2:59 PM CDT These images are for Reference purposes only and have not been reviewed by [facility] Radiology. There will be no report generated by a [facility] Radiologist. Narrative RAD_MAMMO_[facility] - 01/26/2022 2:59 PM CDT EXAMINATION: Images For Reference Purposes Only us Ciara Martinez MD PhD IMG MAMMO PROCEDURES Final Result [facility] documented in this encounter Visit Diagnoses Not on filedocumented in this encounter Additional Health Concerns Infection Onset Date Last Indicated Resolved Time COVID: Suspected 05/01/2022 05/01/2022 05/01/2022 4:59 AM CDT documented as of this encounter Care Teams Manager Urology Relationship Specialty Start Date End Date Wei Swan MD PCP - General 02/22/13 01/13/22 documented as of this encounter
--- OUTSIDE RECORDS SUMMARY | 2018-07-13 23:00 | XMS_ITS | Encounter Summary ---
Author Organization [facility] Healthcare Address [address] [place] [address] Care Team Providers Care Asset Management Analyst Name Role Phone Wei Swan MD Primary Care Provider Reason for Visit * Diagnostic Imaging (Routine) - Closed Specialty Diagnoses / Procedures Referred By Contac t Referred To Contact Procedures Breast Imaging Screening Outside Reference Aft, Ciara Dorsey MD PhD [address] [place] [address] Phone: tel: fax: Referral ID Status Reason Start Date Expiration Date Visits Re quested Visits Authorized [id number] Closed 01/26/2022 02/25/2023 1 1 Encounter Details Date Type Department Care Team (Late st Contact Info) Description 07/14/2018 Hospital Encounter [facility] Radiology [facility] [address] [place], [place] [phone] Social History Tobacco Use Types Packs/Day Years [...] on file Legal Sex Female 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 POWER SHOVEL OPERATOR Gender Identity Female 03/11/2022 12:06 PM [...] Barnett RN Nutrition 3 10/05/2022 12:10 PM POWER SHOVEL OPERATOR Joycelyn Owen RN Friction and Shear 3 10/05/2022 12:10 PM Joycelyn Bender RN Aamir Scale Score 22 10/05/2022 12:10 PM Joycelyn Bender RN * Question Answer Date of Assessment Author BP Method Manual 03/03/2023 3:56 PM CDT Trinity Dorantes PTA * Question Answer Date of Assessment Author BP Location Left arm 09/18/2025 2:24 PM POWER SHOVEL OPERATOR Johanny Begum CMA * Fall Risk Interventions [...] BP Location Left arm 09/18/2025 2:24 PM POWER SHOVEL OPERATOR Johanny Begum CMA * Question Answer Date [...] 05/01/2022 8:35 PM C Itzel Alfaro RN ASSOCIATE PROFESSOR OF PSYCHOLOGY Evaluation Needed 2 05/01/2022 8:35 PM CDT Itzel Sun RN * Assistive Devices Question Answer Date of Assessment Author Assistive Devices/DME Cane;Eyeglasses;Co nt acts 09/20/2022 2:04 PM POWER SHOVEL OPERATOR Cleo Solis RN documented as of this [...] only and have not been reviewed by [facility] Radiology. There will be no report generated by a [facility] Radiologist. Narrative RAD[facility]MO[facility] - 01/26/2022 2:57 PM CDT EXAMINATION: Images For Reference Purposes Only us Ciara Martinez MD PhD IMG MAMMO PROCEDURES Final Result [facility] documented in this encounter Visit Diagnoses Not on filedocumented in this encounter Additional Health Concerns Infection Onset Date Last Indicated Resolved Time COVID: Suspected 05/01/2022 05/01/2022 05/01/2022 4:59 AM CDT documented as of this encounter Care Teams Asset Management Analyst Relationship Specialty Start Date End Date Wei Swan MD PCP - General 02/22/13 01/13/22 documented as of this encounter
--- OUTSIDE RECORDS SUMMARY | 2019-07-16 23:00 | XMS_ITS | Encounter Summary ---
Author Organization [facility] Healthcare Address [address] [place] [address] Care Team Providers Care Electronic Commerce Specialist Name Role Phone Wei Swan MD Primary Care Provider [phone] Reason for Visit * Diagnostic Imaging (Routine) - Closed Specialty Diagnoses / Procedures Referred By Contac t Referred To Contact Procedures Breast Imaging Screening Outside Reference Aft, Ciara Dorsey MD PhD [address] [place] [address] Phone: tel: fax: Referral ID Status Reason Start Date Expiration Date Visits Re quested Visits Authorized [id number] Closed 01/26/2022 02/25/2023 1 1 Encounter Details Date Type Department Care Team (Late st Contact Info) Description 07/17/2019 Hospital Encounter [facility] Radiology [facility] [address] [place], [place] [phone] Social History Tobacco Use Types Packs/Day Years [...] file Legal Sex Female 2:50 AM LOOM BLOWER Gender Identity Female 03/11/2022 12:06 PM CDT [...] of Falling 0 10/05/2022 12 :10 PM Joyceyln Ziegler RN Secondary Diagnosis 15 10/05/2022 1 [...] Barnett RN Nutrition 3 10/05/2022 12:10 PM LOOM BLOWER Joycelyn Owen RN Friction and Shear 3 10/05/2022 12:10 PM Joycelyn Bender RN Aamir Scale Score 22 10/05/2022 12:10 PM Joycelyn Bender RN * Question Answer Date of Assessment Author BP Method Manual 03/03/2023 3:56 PM CDT Trinity Dorantes PTA * Question Answer Date of Assessment Author BP Location Left arm 09/18/2025 2:24 PM LOOM BLOWER Johanny Begum CMA * Fall Risk Interventions [...] BP Location Left arm 09/18/2025 2:24 PM LOOM BLOWER Johanny Begum CMA * Question Answer Date [...] 05/01/2022 8:35 PM C Itzel Alfaro RN CIRCULAR SAWYER HELPER Evaluation Needed 2 05/01/2022 8:35 PM CDT Itzel Sun RN * Assistive Devices Question Answer Date of Assessment Author Assistive Devices/DME Cane;Eyeglasses;Co nt acts 09/20/2022 2:04 PM LOOM BLOWER Cleo Solis RN documented as of this [...] BREAST IMAGING MG SCREENING OUTSIDE REFERENCE Routine 07/17/2019 12:00 AM CDT documented in this encounter Results * Breast Imaging Screening Outside Reference (07/17/2019 12:00 AM CDT) Impressions RAD[facility] - 01/26/2022 2:57 PM CDT These images are for Reference purposes only and have not been reviewed by [facility] Radiology. There will be no report generated by a [facility] Radiologist. Narrative RAD_M[facility]MO[facility] - 01/26/2022 2:57 PM CDT EXAMINATION: Images For Reference Purposes Only us Ciara Martinez MD PhD IMG MAMMO PROCEDURES Final Result [facility] documented in this encounter Visit Diagnoses Not on filedocumented in this encounter Additional Health Concerns Infection Onset Date Last Indicated Resolved Time COVID: Suspected 05/01/2022 05/01/2022 05/01/2022 4:59 AM CDT documented as of this encounter Care Teams Electronic Commerce Specialist Relationship Specialty Start Date End Date Wei Swan MD PCP - General 02/22/13 01/13/22 documented as of this encounter
--- OUTSIDE RECORDS SUMMARY | 2020-08-14 23:00 | XMS_ITS | Encounter Summary ---
Author Organization [facility] Healthcare Address [address] [place] [address] Care Team Providers Care Director Of Residence Life Name Role Phone Wei Swan MD Primary Care Provider Reason for Visit * Diagnostic Imaging (Routine) - Closed Specialty Diagnoses / Procedures Referred By Contac t Referred To Contact Procedures Breast Imaging Screening Outside Reference Aft, Ciara Dorsey MD PhD [address] [place] [address] Phone: tel: fax: Referral ID Status Reason Start Date Expiration Date Visits Re quested Visits Authorized [id number] Closed 01/26/2022 02/25/2023 1 1 Encounter Details Date Type Department Care Team (Late st Contact Info) Description 08/15/2020 Hospital Encounter [facility] [address] [place], [place] [id number] Social History Tobacco Use Types Packs/Day Years [...] on file 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 Gender Identity Female 03/11/2022 12:06 PM CDT [...] Barnett RN Nutrition 3 10/05/2022 12:10 PM BODY TRIMMER UPHOLSTERER Joycelyn Owen RN Friction and Shear 3 10/05/2022 12:10 PM Joycelyn Bender RN Aamir Scale Score 22 10/05/2022 12:10 PM Joycelyn Bender RN * Question Answer Date of Assessment Author BP Method Manual 03/03/2023 3:56 PM CDT Trinity Dorantes PTA * Question Answer Date of Assessment Author BP Location Left arm 09/18/2025 2:24 PM BODY TRIMMER UPHOLSTERER Johanny Begum CMA * Fall Risk Interventions [...] BP Location Left arm 09/18/2025 2:24 PM BODY TRIMMER UPHOLSTERER Johanny Begum CMA * Question Answer Date [...] 05/01/2022 8:35 PM C Itzel Alfaro RN MAINTENANCE SCHEDULER Evaluation Needed 2 05/01/2022 8:35 PM CDT Itzel Sun RN * Assistive Devices Question Answer Date of Assessment Author Assistive Devices/DME Cane;Eyeglasses;Co nt acts 09/20/2022 2:04 PM BODY TRIMMER UPHOLSTERER Cleo Solis RN documented as of this [...] only and have not been reviewed by [facility] Radiology. There will be no report generated by a [facility] Radiologist. Narrative [facility]_MAMMO[facility] - 01/26/2022 2:57 [...] of this encounter Care Teams Director Of Residence Life Relationship Specialty Start Date End Date Wei Swan MD PCP - General 02/22/13 01/13/22 documented as of this encounter
--- OUTSIDE RECORDS SUMMARY | 2025-10-11 12:07 | XMS_ITS | Encounter Summary ---
Author Organization [facility] Address 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
--- OUTSIDE RECORDS SUMMARY | 2025-10-11 12:07 | XMS_ITS | Clinical Summary ---
Author Organization [facility] Address [address] 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
--- OUTSIDE RECORDS SUMMARY | 2025-10-11 12:07 | XMS_ITS | Encounter Summary ---
Author Organization [facility] Address 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
--- OUTSIDE RECORDS SUMMARY | 2025-10-11 12:07 | XMS_ITS | Encounter Summary ---
Author Organization [facility] Address 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
--- OUTSIDE RECORDS SUMMARY | 2025-10-11 12:07 | XMS_ITS | Clinical Summary ---
Author Organization [facility] Address [address] [place] [address] Care Team Providers Care Stores Assistant Name Role Phone Wei Swan MD Primary Care Provider [phone] Source Comments [facility],non-owned Affiliates and Associated Physician Practices is amultiple site organization consisting of ambulatory clinics and hospital sitesin [place], [place], [place] and [place]. This disclosure is being madepursuant to the Care Everywhere program and may not contain all information available regarding this patient. 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
--- OUTSIDE RECORDS SUMMARY | 2025-10-11 12:07 | XMS_ITS | Encounter Summary ---
Author Organization [facility] Address 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
--- OUTSIDE RECORDS SUMMARY | 2025-10-11 12:07 | XMS_ITS | Encounter Summary ---
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 Gender Identity Female 03/11/2022 12:06 PM [...] on filedocumented in this encounter Care Teams Pump House Technician Relationship Specialty Start Date End Date Yossi Reaves MD [address] [place] [address] PCP - General Family Practice 09/02/23 Yasir Gonzalez MD [address] [place] [address] Consulting Physician Medical Oncology 03/08/22 Aft, Ciara Dorsey MD PhD [address] [place] [address] Surgeon Surgical Oncology 03/16/22 Monika Bryant MD [address] [place] [address] Radiation Oncologist Radiation Oncology 11/25/22 Yeny Oliveira, PhD [address] [place] [address] Nurse Practitioner Radiation Oncology 02/07/23 Jessenia Vaughn NP [address] [place] [address] Nurse Practitioner Nurse Practitioner 09/05/23 documented as of this encounter
--- OUTSIDE RECORDS SUMMARY | 2025-10-11 12:07 | XMS_ITS | Continuity of Care Document ---
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 Patient will come back in a year unless there are new symptoms. [email or web address] Not available 09/05/2025 14:08:37 Plan of Treatment Reminders Order Date Submit Date Provider Last Modified By Organization Details Last Modified Time Details Appointments WELL WOMAN- EST 026 01:00PM LENORA HATCH NP Not available Not available Not available Lab None record ed. Referral None record ed. Procedures None record ed. Surgeries None record ed. Imaging None record ed. Medication Orders None record ed. Patient TargetsNo targets recorded. Patient InstructionsNo instructions recorded. Reason for Referral None Reported. Problems Name Problem SNOMED Code Status Onset Date Resolution Date Notes Provider Name and Address Organization Details Recorded Time Proteinu herman [id number] Completed 201007/21/2021 Proteinu herman;Prac edgardo ID: 0001 Miranda song, [facility] 11:00:02 Uterovag inal prolapse [id number] Completed 201007/21/2021 Uterovag inal prolapse , unspecif ied;Prac edgardo ID: 0001 Miranda song, [facility] 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 10:59:49 Incomple te uterovag inal prolapse [id number] Completed 201007/21/2021 Uterovag inal prolapse , incomple te;Pract ice ID: 0001 Miranda song, [facility] 10:59:15 Cyst of ovary [id number] Completed 201007/21/2021 OVARIAN CYST;Pra ctice ID: 0001 Miranda [facility], [facility] 10:49:09 Dysfunct ional uterine bleeding Completed 201107/21/2021 Other disorder s of menstrua tion and other abnormal bleeding from female genital tract;Re corded Elsewher e: No Locat ion: [facility] S ource: [employer] [facility] [facility] Esthetics Instructor iva: N Practi ce ID: 0001 Román lable Time: 04:30:00 PM Miranda [facility] 10:58:46 Insertio n of intraute rine contrace ptive device Completed 201107/21/2021 INSERTIO N OF IUD;Murtaza rded Elsewher e: No Locat ion: [facility] S ource: EHR Esthetics Instructor iva: N Practi ce ID: 0001 Román lable Time: 11:45:00 AM Miranda [facility] [facility] 1 10:59:21 Pregnanc y test negative [id number] Completed 201107/21/2021 Pregnanc y examinat ion or test, negative result;R ecorded Elsewher e: No Locat ion: [facility] S ource: EHR Esthetics Instructor iva: N Practi ce ID: 0001 Román lable Time: 11:45:00 AM Miranda [place] duncan, [facility] 1 10:59:58 Speciali butch medical examinat ion Completed 201207/21/2021 Gynecolo gical Examinat ion;Murtaza rded Elsewher e: No Locat ion: [facility] S ource: EHR Esthetics Instructor iva: N Practi ce ID: 0001 Román lable Time: 11:00:00 AM Miranda [place] duncan, [facility] 1 11:00:26 Mucous polyp of cervix [id number] Completed 201207/21/2021 Mucous polyp of cervix;R ecorded Elsewher e: No Locat ion: [facility] S ource: [employer] Esthetics Instructor iva: N Practi ce ID: 0001 Román lable Time: 11:00:00 AM Miranda [place] duncan, [facility] 1 10:59:46 Screenin g for malignan t neoplasm of rectum Completed 201407/21/2021 Screenin g for malignan t neoplasm s of the rectum;R ecorded Elsewher e: No Locat ion: [facility] N Practi ce ID: 0001 Román lable Time: 11:00:00 AM Miranda [place] duncan, [facility] 1 11:00:15 Leukocyt osis [id number] Completed 201407/21/2021 LEUKOCYT OSIS NOS;Prac edgardo ID: 0001 Miranda [place] duncan, [facility] 10:59:26 Microsco pic hematuri a [id number] Completed 201407/21/2021 MICROSCO PIC HEMATURI A;Practi ce ID: 0001 Miranda song, [facility] 10:59:30 Adult health examinat ion Completed 201407/21/2021 Routine general medical examinat ion at a health care facility ;Practic e ID: 0001 Miranda song [facility] 10:41:46 Screenin g for malignan t neoplasm of cervix Completed 201407/21/2021 SCREEN MAL NEOP-CER VIX;Prac edgardo ID: 0001 Miranda [facility] 11:00:09 Blood in urine [id number] Completed 201407/21/2021 HEMATURI A NOS;Murtaza rded Elsewher e: No Locat ion: [facility] S ource: EHR Esthetics Instructor iva: N Practi ce ID: 0001 Román lable Time: 10:11:05 AM Miranda [place] duncan [facility] 10:41:49 Urinary tract infectio us disease [id number] Completed 201507/21/2021 Urinary tract infectio n, site not specifie d;Practi ce ID: 0001 Miranda Tol[place] duncna [facility] 11:00:[address] Concept Completed 201507/21/2021 Encntr for supervisor metalizing exam (general ) (routine ) w/o abn findings ;Practic e ID: 0001 Miranda [facility] 11:00:24 Removal of intraute rine device Completed 201507/21/2021 Encounte r for removal of intraute rine contrace ptive device;P ractice ID: 0001 Miranda [facility] 11:00:[address] Concept Completed 201607/21/2021 Encntr for general adult medical exam w/o abnormal findings ;Practic e ID: 0001 Miranda [facility] 11:00:19 Evaluati on finding Completed 201607/21/2021 Oth abn and inconclu sive findings on dx imaging of breast;R ecorded Elsewher e: No Locat ion: [facility]: N Sohanti ce ID: 0001 Román lable Time: 10:36:46 AM Miranda song [facility] 1 10:41:52 Pelvic and perineal pain [id number] Completed 201707/21/2021 Pelvic and perineal pain;Rec orded Elsewher e: No Locat ion: [facility] S ource: [facility] iva: N Sohanti ce ID: 0001 Román lable Time: 03:30:00 PM Miranda song [facility] 1 10:59:53 Polyp of cervix [id number] Completed 201707/21/2021 Polyp of cervix uteri;Re corded Elsewher e: No Locat ion: [facility] S ource: [facility] iva: N Sohanti ce ID: 0001 Román lable Time: 11:00:00 AM Miranda song [facility] 1 10:59:55 Menopaus e present [id number] Completed 201707/21/2021 Symptoms such as flushing , sleeples sness, headache , lack of concentr ation, associat ed with natural (age-rel ated) menopaus e;Record ed Elsewher e: No Locat ion: [facility] S ource: EHR Esthetics Instructor iva: N Sohanti ce ID: 0001 Román lable Time: 11:00:00 AM Miranda song [facility] 1 10:59:28 Evaluati on finding Completed 201807/21/2021 Hematuri a, unspecif ied;Murtaza rded Elsewher e: No Locat ion: [facility]: N Practi ce ID: 0001 Román lable Time: 08:26:20 AM Miranda song [facility] 10:58:50 Problem Notes None recorded. Procedures Surgical History Date Name Laterality Status Provider Name and Address Organization Details Recorded Time 025 Date of Last Mammogram completed Niya Conway [facility] 09/05/2025 14:12:13 023 Date of Last Pap Smear completed Edith Najera [facility] 09/03/2024 14:12:05 023 Most Recent Bone Density completed Gisel Snowden [facility] 08/16/2023 12:39:48 022 excision of mass of breast completed Niya Conway [facility] 09/05/2025 14:14:56 021 completed Kierra Brandon [facility] 11/17/2021 15:52:53 021 Date of Last Colonoscopy completed Kierra [facility] 11/17/2021 15:52:53 020 cholecystectomy completed Jessenia Vaughn [facility] [address], [place], [address], [facility] 07/14/2020 13:04:07 018 cervical biopsy completed Kierra Brandon [facility] 11/17/2021 15:58:27 016 excision of bunion completed Miranda Toledo [facility] 07/21/2021 19:03:18 013 cervical polypectomy completed Miranda Toledo [facility] 07/21/2021 19:10:40 010 Carpal tunnel surgery completed Darling Juarez [facility] 07/14/2020 10:54:58 997 Laparoscopy completed [facility] 07/21/2021 19:04:04 994 delivery completed [facility] 07/14/2020 10:55:31 993 Laparoscopy completed [facility] 07/21/2021 19:03:53 993 laparotomy completed [facility] 07/14/2020 10:54:48 985 Tonsillectomy completed [facility] 07/14/2020 10:54:31 Imaging Results None recorded. Procedure Notes None recorded. Medical Equipment None Reported. Allergies Allergen ID Allergen Name Allergen Category Reaction Reaction Severity Criticality Documentation Date Start Date Code Code System Note Provider Name and Address Organization Details Recorded Time 69484 adhesive environme nt,medica tion rash severe Not available 11/17/2021 Kierra Brandon [facility] 2 15:52:45 1883 Product containin g penicilli n (product) medicatio n rash severe Not available 07/14/2020 62667 8001 SNOMED [facility] 0 10:54:05 Medications Name Sig Start [...] Prescrib ed Elsewher e: No Locat ion: [facility] odify By: kobe Sona kevin DateTime : 07/02/20 15 09:21:07 AM Not Available Not Available Not Available Coreg 3.125 mg tablet take 1 tablet by oral route 2 times every day with food 07/21 completed Prescrib ed Elsewher e: Yes Loca tion: [facility] odify By: doreen Malagon r DateTime : 02/20/20 12 09:56:27 PM Not Available Not Available Not Available Daily Vitamin tablet take 1 tablet by oral route every day with food 2011 active Prescrib ed Elsewher e: No Locat ion: [facility] odify By: elijah Malagon r DateTime : 02/21/20 12 04:30:00 PM Not Available Not Available Not Available azithromy arielle 250 mg tablet TAKE 2 TABLETS BY MOUTH FOR 1 DAY THEN TAKE 1 TABLET BY MOUTH DAILY FOR 4 DAYS 08/22 completed Not Available Not Available Not Available pravastat in 40 mg tablet TAKE 1 TABLET BY MOUTH DAILY active Not Available Not Available No t Available nystatin 100,000 unit/gram topical ointment APPLY TOPICALL Y TO THE AFFECTED AREA 2-3 TIMES DAILY active Not Available Not Available No [...] Prescrib ed Elsewher e: Yes Loca tion: [facility] odify By: aguila Malagon r DateTime : [...] Prescrib ed Elsewher e: Yes Loca tion: [facility] odify By: julio cesarhar tz Encou nter DateTime : 07/09/20 19 08:26:20 AM Not Available Not Available Not Available dextroamp hetamine- amphetami ne 10 mg tablet TAKE 1 TABLET BY MOUTH TWICE DAILY 08/16 completed Not Available Not Available Not Available pimecroli mus 1 % topical cream APPLY TO RASH AREAS ON FACE TWICE DAILY 08/16 completed Not Available Not Available Not Available diphenoxy late-atro pine 2.5 mg-0.025 mg tablet TAKE 1 TABLET BY MOUTH FOUR TIMES DAILY NEEDED FOR DIARRHEA active Not Available Not Available No t Available prochlorp erazine maleate 10 mg tablet active Not Available Not Available Not Available omeprazol e 40 mg capsule,d elayed release TAKE 1 CAPSULE BY MOUTH DAILY FOR 8 WEEKS 09/05 completed Not Available Not Available Not Available [...] Not Available alprazola m 0.25 mg tablet Take 1 tablet 3 times a day by oral route. active Not Available Not Available No t Available Metrogel Vaginal 0.75 % (37.5 mg/5 gram) insert 1 applicat orful by vaginal route for 5 nights at bedtime 07/05 completed Prescrib ed Elsewher e: No Locat ion: Christine mi [facility] odify By: kobe pateluntvon DateTime : 06/30/20 16 10:42:35 AM Not Available Not Available Not Available prednisol one acetate 1 % eye drops,jessica pension 08/10 completed Not Available Not Available Not Available pravastat in 10 mg tablet take 1 tablet by oral route every day 11/02 completed Prescrib ed Elsewher e: Yes Loca tion: Christine mi [facility] odify By: kobe Mi ncounter DateTime : 07/05/20 18 01:30:00 PM Not Available Not Available Not Available Depo-Prov era 150 mg/mL intramusc ular suspensio n inject 1 millilit er (150MG) by intramus cular route every 3 months 06/14 completed Prescrib ed Elsewher e: No Locat ion: Christine mi [facility] odify By: justus pateluntvon DateTime : 05/25/20 12 01:30:00 PM Not [...] Elsewher e: Yes Loca tion: Christine mi [facility] odify By: doreen beltran DateTime : 02/20/20 12 09:56:27 PM Not Available Not Available Not Available Cipro 500 mg tablet take 1 tablet by oral route every 12 hours 07/05 completed Prescrib ed Elsewher e: No Locat ion: Christine mi [facility] odify By: kobe Mi ncounter DateTime : 06/23/20 15 11:00:00 AM Not [...] TWICE DAILY 4 TO 6 HOURS APART active Not Available Not Available No t Available Glucosami ne 500 mg tablet 08/16 completed Prescrib ed Elsewher e: Yes Loca tion: [facility] odify By: elijah beltran DateTime : 02/21/20 12 04:30:00 PM Not Available Not Available Not Available docusate sodium 100 mg capsule TAKE 1 CAPSULE BY MOUTH 2 TIMES A DAY NEEDED FOR CONSTIPA TION active Not Available Not Available No t Available gabapenti n 300 mg capsule TAKE ONE CAPSULE BY MOUTH EVERY MORNING AND 2 CAPSULES AT NIGHT active Not Available Not Available [...] EVERY 3 DAYS NEEDED FOR MOTION SICKNESS 09/05 completed Not Available Not Available Not Available paroxetin e 40 mg tablet TAKE 1 TABLET BY MOUTH DAILY WITH 10MG TABLET FOR TOTAL OF 50MG DAILY 08/10 completed Not Available Not Available Not Available doxycycli ne hyclate 20 mg tablet TAKE 1 TABLET BY MOUTH TWICE DAILY 08/16 completed Not Available Not Available Not Available ondansetr on 4 mg disintegr ating tablet DISSOLVE 1 TABLET ON THE TONGUE EVERY 8 HOURS NEEDED FOR NAUSEA OR VOMITING active Not Available Not Available No t Available cefdinir 300 mg capsule TAKE 1 CAPSULE BY MOUTH EVERY 12 HOURS 08/10 completed Not Available Not Available Not Available fluticaso ne propionat e 50 mcg/actua tion nasal spray,jessica pension SHAKE LIQUID AND USE 2 SPRAYS IN EACH NOSTRIL DAILY active Not Available Not Available No t Available dextroamp hetamine- amphetami ne 5 mg [...] Prescrib ed Elsewher e: No Locat ion: [facility] odify By: kobe brown DateTime : 06/28/20 16 08:15:00 AM Not Available Not Available Not Available iron ER 325 mg (65 mg iron) capsule,e xtended release take 1 Tablet by Oral route 3 times every day 05/25 completed Prescrib ed Elsewher e: Yes Loca tion: [facility] odify By: agapito nielson DateTime : 02/21/20 12 04:30:00 PM Not Available Not Available Not Available nitrofura ntoin monohydra te/macroc rystals 100 mg capsule 08/16 completed Not Available Not Available Not Available duloxetin e 30 mg capsule,d elayed release 08/22 completed Not Available Not Available Not Available duloxetin e 60 mg capsule,d elayed release TAKE 1 CAPSULE BY MOUTH DAILY active Not Available Not Available No t Available Calcio Suhail 500 mg tablet 07/05 completed Prescrib ed Elsewher e: Yes Loca tion: [facility] odify By: kobe brown DateTime : 06/04/20 14 11:30:00 AM Not Available Not Available Not Available docusate sodium 09/03 completed Not Available Not Available Not Available Coreg 07/21 completed Not Available Not Available Not Available dicyclomi ne 09/03 completed Not Available Not Available Not Available pravastat in 07/21 completed Not Available Not Available Not Available Adderall (10mg) active Not Available Not Available Not Available trazodone 07/21 completed Not Available Not Available Not Available Trazodone 11/17 completed Not Available Not Available Not Available Adderall 07/21 completed Not Available Not Available Not Available Daily Vitamin Formula 07/21 completed Not Available Not Available Not Available carvedilo l phosphate ER 40 mg capsule,e xt.releas e24hr multiphas e TAKE 1 CAPSULE BY MOUTH DAILY WITH FOOD active Not Available Not Available No t Available Vyvanse 50 mg capsule TAKE 1 CAPSULE BY MOUTH DAILY 08/16 completed Not Available Not Available Not Available Vyvanse 70 mg capsule TAKE 1 CAPSULE BY MOUTH DAILY 08/10 completed Not Available Not Available Not Available Vyvanse 60 mg capsule TAKE 1 CAPSULE BY MOUTH DAILY 08/10 completed Not Available Not Available Not Available Vyvanse 40 mg capsule TAKE 1 CAPSULE BY MOUTH DAILY 09/05 completed Not Available Not Available Not Available Myrbetriq 25 mg tablet,ex tended release TAKE 1 TABLET BY MOUTH DAILY. MONITOR BLOOD PRESSURE WEEKLY 11/17 completed Not Available Not Available Not Available biotin 1 mg capsule 07/05 completed Prescrib kacy Hurst e: Yes [facility] By: kobe brown DateTime : 06/04/20 11:30:00 AM Not Available Not Available Not Available dextroamp hetamine sulfate 15 mg tablet 09/03 completed Not Available Not Available Not Available prochlorp erazine 09/03 completed Not Available Not Available Not Available Verzenio 150 mg tablet 09/05 completed Not Available Not Available Not Available Acid Knife Setter Assembler (omeprazo le) 20 mg capsule,d elayed release 11/17 completed Not Available Not Available Not Available COVID-19 test specimen collectio n TEST DIRECTED TODAY 08/10 completed Not Available Not Available Not Available Gemtesa 75 mg tablet TAKE 1 TABLET BY MOUTH DAILY active Not Available Not Available No t Available BinaxNOW COVID-19 Ag Self Test kit TEST DIRECTED TODAY 08/10 completed Not Available Not Available Not Available Paxlovid 300 mg (150 mg x 2)-100 mg tablets in a dose pack FOLLOW PACKAGE DIRECTIO NS 08/10 completed Not Available Not Available Not Available Vitals Date Recorded Body height Body mass index (BMI) Body weight Systolic And Diastolic Provider Name and Address Organization Details Last Updated DateTime 09/05/2025 165.1 cm 26.5 kg/m2 91877.19 g 96/64 mm[Hg] Niya Conway [facility] 09/05/2025 14:09:22 Social History Question Answer Notes LastModified by Organizat ion Details LastModified Time Tobacco Smoking Status Never Smoker Olena Chavez duncan, [facility] 08/16/2023 12:23:20 Do You Have An Advance Directive? No Information n ot available 11/17/2021 How Many Years Have You Consumed Alcohol? 20 [email or web address] Information not available 09/03/2024 Are You Blind Or Do You Have Difficulty Seeing? No [email or web address] Information n ot available 07/21/2021 What Is Your Level Of Caffeine Consumption? Moderate [email or web address] Information not available 07/21/2021 How Much Tobacco Do You Chew? None Information not available 11/17/2021 In The 14 Days Before Symptom Onset, Have You Had Close Contact With A Laboratory-confirm ed COVID-19 While That Case Was Ill? No [email or web address] Information n ot available 07/21/2021 In The 14 Days Before Symptom Onset, Have You Had Close Contact With A Person Who Is Under Investigation For COVID-19 While That Person Was Ill? No [email or web address] Information not available 07/21/2021 Have You Been To An Area Known To Be High Risk For COVID-19? No [email or web address] Information not available 07/21/2021 Are You Deaf Or Do You Have Serious Difficulty Hearing? No [email or web address] Information not available 07/21/2021 What Type Of Diet Are You Following? REGULAR Information n ot available 07/21/2021 What Is The Highest Grade Or Level Of School You Have Completed Or The Highest Degree You Have Received? [id number] Information not available 11/17/2021 Are There Any Guns Present In Your Home? No Information not available 11/17/2021 Have You Ever Been Counseled For Unhealthy Alcohol Use? No [email or web address] Information not available 08/16/2023 Do You Use Protection During Sex? No Information not available 11/17/2021 Do You Use Your Seat Belt Or Car Seat Routinely? Yes [email or web address] Information not available 07/21/2021 Are You Sexually Active? No [email or web address] Information not available 09/05/2025 Do You Have Smoke And Carbon Monoxide Detectors In Your Home? Yes [email or web address] Information not available 07/21/2021 How Much Tobacco Do You Smoke? No Information not available 11/17/2021 Do You Use Sunscreen Routinely? Yes [email or web address] Information not available 07/21/2021 Has Tobacco Cessation Counseling Been Provided? No [email or web address] Information not available 08/16/2023 Have You Used IV Drugs? No Information not available 11/17/2021 Do You Have Difficulty Walking Or Climbing Stairs? Yes [email or web address] Information not available 09/05/2025 Sex: Unknown Functional Status Question Answer Note LastModified by Organizat ion Details LastModified Time Do you use any illicit or recreational drugs? No [email or web address] Information not available 07/21/2021 Do you or have you ever used any other forms of tobacco or nicotine? No Information not available 08/16/2023 What is your level of alcohol consumption? Moderate [email or web address] Information not available 09/03/2024 Are you currently employed? Yes [email or web address] Information not available 09/05/2025 Are you able to walk independently without assistance or assistive devices? [email or web address] Information not available 09/05/2025 Are you able to care for yourself independently? 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 No [email or web address] Information not available 09/05/2025 What is your exercise level? Occasional walking [email or web address] Information not available 07/14/2020 Mental Status Question Answer Note LastModified by Organization D etails LastModified Time Do you feel stressed (tense, restless, nervous, or anxious, or unable to sleep at night)? [id number] [email or web address] Information not available 07/21/2021 Family History Relationship Description Onset Age of this Age Resolved Age Notes LastModified by Organization Details LastModified Time Maternal Aunt Malignant neoplasm of colon [email or web address] Not available 2019 10:53:15 Maternal Grandmother Deep venous thrombosis [email or web address] Not available 09/03 14:02:31 Maternal Grandmother Polyp of colon [email or web address] Not available 2023 14:02:31 Maternal Grandfather Family history of malignant neoplasm of oral cavity [email or web address] Not available 08/15 14:02:31 Medical History Condition Response Allergies (Food, seasonal, environmental ) N Other Y Breast Cancer N Drug/Latex Allergies/Reactions N Blood Transfusion N Dermatologic Disorders N Lung Disease N Defects or Inherited Disease N Breast Problem Y Gestational Diabetes N Hematologic disorders N Anesthesia Complications N History of STI N Deep Vein Thrombosis N Polycystic ovary syndrome N Anxiety Disorder Y Autoimmune disease N Arthritis N Infertility N Polyps N Acid Reflux (GERD) N History of abnormal pap N Cancer Y Stroke N Varicosities N Neurologic/Epilepsy N Endometriosis Y High Cholesterol Y Headaches N Fibromyalgia N Kidney Disease N Heart Problems Y Kidney or Bladder Problems Y Thyroid Problems N GI Problems N Eating Disorder N Anemia N Art (IVF or FET) N Psychiatric Illness Y Ovarian Cancer N Diabetes N Pulmonary (TB, Asthma) N Hepatitis/Liver Disease N No Past Medical History N Eczema N Urinary Tract Infection N Abuse/Domestic Violence N Asthma N Trauma/Violence N Depression/ depression N Heart Disease N Pre-Eclampsia N Hypertension N Osteoporosis N Thrombophilias N Gynecological History Statement/Question Response Abnormal Pap N Date of Last Mammogram 04/14/2025 Date of LMP N On BCP's at Conception? N STIs/STDs N Was last menstrual period normal N HPV Vaccine N Current Control Method None Age at First Child 35 Date of Last Colonoscopy 02/21/2021 Most Recent Bone Density 11/14/2022 Sexually Active? N Menses Monthly N Age of first menstrual cycle 13 Date of Last Pap Smear 08/16/2023 Sexual Problems? N LMP Unknown 02/21/2021 N Obstetrics History GPAL:G 2 P 0 2 0 2 Type Value Premature 2 Living 2 Total 2 Past Encounters Encounter ID Performer Location Encounter Start Date Encounter Closed Date Diagnosis/Indication Diagnosis SNOMED-CT Code Diagnosis ICD10 Code Diagnosis IMO Codes Diagnosis Note [id number] LENORA HATCH, HAYLEY [place] [address] [address] 09/05/2025 13:57:20 09/05/2025 14:28:16 Well woman health examination [id number] Annual gynecologi latia exam performed. Patient will come back in a year unless there are new symptoms. Suggest Calcium with Vitamin D if not eating in diet. Patient advised to get annual flu shot. Recommend yearly physicals and perform monthly breast exams. Genetic testing is available for patients with family history of cancer. Engage in safe sexual practices, use condoms. Encouraged to have daily exercise. Avoid tobacco and illicit drugs, moderation of alcohol. If BMI greater than 25 dietary consult advised. If you have any questions please call or email. mammogram- UTD (04/2025 WNL) - managed by breast oncologist at [facility] colon cancer screening - UTD (2020)- PCP DEXA scan- UTD - PCP Pap smear- UTD (08/16/23 - WNL), will repeat in 2025 per ASCCP guidelines . laboratory evaluation - PCP STI testing - Declined Health Concerns Section Related Observation LastModified by Organization Detai ls LastModified Time None Recorded Concern Status LastModified by Organization Details LastModified Time None Recorded Payers Encounter Date Sequence Insurance Name Policy Number Policy Trevizo Covered Member ID Trevizo Member ID Guarantor Name 09/05/2025 1 [facility] [id number] Yamileth Sims [id number] Yamileth Sims Notes Date Note Type Note Provider Name and Address Organization Details Recorded Time 5 text/html Annual Bowl Turner Post-MenopausalReported by PatientGenitourinary symptomsFor menopausal symptoms, patient reportsno menopausal symptomsandnormal vaginal lubrication. For vaginal bleeding, patient reportshistory of menopause having occurredandno history of post menopausal bleeding. For urinary symptoms, patient reportsno hematuria,no incontinence,no nocturia, andno urinary frequency(oab/incontinenc e sx r/t uterine prolapse. patient states that sx are controlled on gemtesa - sees urologist). For vulva, patient reportsno genital lesionandno vulvar atrophy. For vagina, patient reportsnormal vaginal dischargeandno vaginal atrophy.Breast symptomsFor breast, patient reportsno breast lump,no nipple discharge, andno breast pain.Psychological symptomsFor sexual complaints, patient reportsno sexual complaints. For psychological symptoms, patient reportsno depressionandno anxiety.Preventative measuresFor preventive measures, patient reportsencourage regular mammograms starting age 40,encourage self breast examination,encourage regular exercise, andencourage no tobacco use. Patient presents for annual well woman exam. Patient denies concerns today. LENORA HATCH, HAYLEY [address], [place], [address], [place] [facility] 09/05/2025 14:28:02 OBGyn Episode No OBEpisode recorded.
--- OUTSIDE RECORDS SUMMARY | 2025-10-11 12:07 | XMS_ITS | Encounter Summary ---
Author Organization [facility] Address 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
--- OUTSIDE RECORDS SUMMARY | 2025-10-11 12:07 | XMS_ITS | Encounter Summary ---
Author Organization [facility] Address 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
--- OUTSIDE RECORDS SUMMARY | 2025-10-11 12:07 | XMS_ITS | Encounter Summary ---
Author Organization [facility] Address 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
--- OUTSIDE RECORDS SUMMARY | 2025-10-11 12:07 | XMS_ITS | Encounter Summary ---
Author Organization [facility] Address 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
--- OUTSIDE RECORDS SUMMARY | 2025-10-11 12:07 | XMS_ITS | Encounter Summary ---
Author Organization [facility] Address 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
--- OUTSIDE RECORDS SUMMARY | 2025-10-11 12:07 | XMS_ITS | Encounter Summary ---
Author Organization [facility] Address [address] [place] [address] Phone Care Team Providers Care Route Rider Supervisor Name Role Phone Giovanni Gutierrez DO Primary Care Provider [phone] Jessenia Vaughn APPRENTICE PHOTOGRAPHER Unavailable [phone] Yasir Gonzalez MD Unavailable Aft, Ciara Dorsey MD PhD Unavailable [phone] Monika Bryant MD Unavailable Nenita Rivera DPT Unavailable Yeny Oliveira PhD Unavailable [phone] Yossi Reaves MD Primary Care Provider [phone] Jessenia Vaughn APPRENTICE PHOTOGRAPHER Unavailable [phone] Encounter Details Date Type Department Care Team [...] on file 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 Gender Identity Female 03/11/2022 12:06 PM CDT Sexual Orientation Straight 03/11/2022 12 :06 PM CDT documented as of this encounter Functional Status documented as of this encounter Plan of Treatment Not on file documented as of this encounter Procedures Procedure Name Priority Date/Time Associated Diagnosis Comments SCAN - LABS 08/20/2022 documented in this encounter Results * SCAN - LABS (08/20/2022) us Provider Scanning Edited Result - Final documented in this encounter Visit Diagnoses Not on filedocumented in this encounter Care Teams Route Rider Supervisor Relationship Specialty Start Date End Date Giovanni Gutierrez DO PCP - General Internal Medicine 01/14/22 05/11/23 Yossi Reaves MD [address] [facility] [address] [facility] [address] [place] [address] PCP - General Family Practice 09/02/23 Jessenia Vaughn NP Nurse Practitioner Nurse Practitioner 01/14/22 3 Yasir Gonzalez MD [address] [place] [address] Consulting Physician Medical Oncology 03/08/22 AftCiara MD PhD [address] [facility] [place] [address] Surgeon Surgical Oncology 03/16/22 Monika Bryant MD [address] [facility] [address] [place] [address] Radiation Oncologist Radiation Oncology 11/25/22 Nenita Rivera DPT [address] [place] [address] Physical Therapist Physical Therapy 12/06/22 01/19/24 Yeny Oliveira, PhD [address] [place] [address] Nurse Practitioner Radiation Oncology 02/07/23 Jessenia Vaughn NP [address] [place] [address] Nurse Practitioner Nurse Practitioner 09/05/23 documented as of this encounter
--- OUTSIDE RECORDS SUMMARY | 2025-10-11 12:07 | XMS_ITS | Encounter Summary ---
Author Organization [facility] Address [address] [place] [address] Care Team Providers Care Division Commander Name Role Phone Wei Swan MD Primary Care Provider [phone] Encounter Details Date Type Department Care Team (Late st Contact Info) Description 06/19/2020 Lab Requisition [facility] Care Derm[facility] Lab [address] 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 Gender Identity Not on file Sexual Orientation Not on file documented as of this encounter Plan of Treatment Not on file documented as of this encounter Procedures Procedure Name Priority Date/Time Associated Diagnosis Comments DERMATOPATHOLOGY Routine 06/18/2020 12:0 0 AM CDT documented in this encounter Results * DERMATOPATHOLOGY (06/18/2020 12:00 AM CDT) Case Report Dermatopathology Report Case: [id number] Authorizing Provider: Phillpi Sims MD Collected: 06/18/2020 12:00 AM Ordering Location: [facility] Care DermPath Lab Received: 06/19/2020 12:27 [...] specimen consists of a shave biopsy measuring [id number]. Jar 0. Specimen B: Received is one formalin filled container labeled with the patient's name and designated dependent left lat breast. The specimen consists of a shave biopsy (2 pieces) measuring 2o7g0ar & 0s7u5un. Jar 0. 0 12:34 PM CDT DERMATOPATHOLOGY [...] characteristic determined by the Dermatopathology Laboratory at [facility], directed by Dr. Deepthi Larson. These tests need not be, and therefore are not, approved by the [place] Food and Drug Administration. The tests are used for clinical purposes. Billing Codes Specimen Charges Stain Charges 44697 10361 1 1 00130 01143 1 1 0 12:34 PM CDT DERMATOPATHOLOGY LABORATORY Embedded Images 0 12:34 PM CDT DERMATOPATHOLOGY LABORATORY Pathology/Cytology TISSUE SPECIMEN FROM SKIN / Unknown 06/18/2020 06/19/2020 12:27 PM CDT Miscellaneous samples (specimen) TISSUE SPECIMEN FROM SKIN / Unknown 06/18/2020 06/19/2020 12:27 PM CDT Phillip Sims MD LAB - PATHOLOGY/CYTOLOGY ORD ERABLES Final Result DERMATOPATHOLOGY LABORATORY [facility] - Department of Dermatology [facility]/[address] [phone] documented in this encounter Visit Diagnoses Not on filedocumented in this encounter Care Teams Division Commander Relationship Specialty Start Date End Date Wei Swan MD [address] [place] [address] PCP - General 06/28/17 documented as of this encounter
--- OUTSIDE RECORDS SUMMARY | 2025-10-11 12:07 | XMS_ITS ---
Author Organization [facility] Address [address] [place] [address] Care Team Providers Care Tar Pot Man Name Role Phone Yasir Gonzalez MD Unavailable Aft, Ciara Dorsey MD PhD Unavailable Monika Bryant MD Unavailable Yeny Oliveira PhD Unavailable [phone] Yossi Reaves MD Primary Care Provider [phone] Jessenia Vaughn COMMUNITY SPECIALIST Unavailable [phone] Active Problems Problem Noted Date Diagnosed Date [...] from 02/24/2022:Stage IIA(cT2, cN0(f), cM0, G3, ER+, TN+, HER2-) - Signed by Ilda Jenkins MD on 11/25/2022 Pathologic stage from 10/05/2022:No Stage Recommended(ypT1a, pN1mi(sn), cM0, GX, ER+, TN+, HER2-) - Signed by Ilda Jenkins MD on 11/25/2022 Overview (03/08/2022): Added automatically from request for surgery [id number] Assessment & Plan (05/03/2022 12:59 PM CDT): [...] Medications Current Day (Day 1 , Cycle 7 - Planned for 10/16/2025) Next Day (Day 1, Cycle 8 - Planned for 11/13/2025) abemaciclib (VERZENIO) No medications scheduled. No medications [...]
--- OUTSIDE RECORDS SUMMARY | 2025-10-11 12:07 | XMS_ITS | Encounter Summary ---
Author Organization [facility] Address 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
--- OUTSIDE RECORDS SUMMARY | 2025-10-11 12:07 | XMS_ITS | Clinical Summary ---
Author Organization [facility] Address [address] [place] [address] Care Team Providers Care Senior Statistical Programmer Name Role Phone Yasir Gonzalez MD Unavailable Aft, Ciara Dorsey MD PhD Unavailable Monika Bryant MD Unavailable Yeny Oliveira PhD Unavailable [phone] Yossi Reaves MD Primary Care Provider [phone] Jessenia Vaughn ADDICTION MEDICINE PHYSICIAN Unavailable [phone] Allergies Active Allergy Reactions Criticality Noted Date Comments Adhesive Rash Medium 02/05/2022 Penicillins Hives,Itching Medium 02/05/2022 Medications carvedilol CR (COREG CR) 40 mg 24 hr capsuleIndicati ons:hypertensio n Take 1 capsule (40 mg total) by mouth every morning 022 Active pravastatin (PRAVACHOL) 40 mg tabletIndicatio ns:hyperlipidem ia Take 1 tablet (40 mg total) by mouth every morning 022 Active traZODone (DESYREL) 100 mg tabletIndicatio ns:insomnia associated with depression Take 1 tablet (100 mg total) by mouth nightly 017 Active acetaminophen (TYLENOL) 500 mg tabletIndicatio ns:Pain Take 1 tablet (500 mg total) by mouth as needed for pain Active ibuprofen (ADVIL,MOTRIN) 200 mg tab/cap Take 1 tablet/capsule (200 mg total) by mouth 2 (two) times a day as needed for pain 022 Active dextroamphetami ne sulfate (DEXTROSTAT) 15 mg tablet Active vibegron (Gemtesa) 75 mg tabletIndicatio ns:Urinary Urge Incontinence Take 75 mg by mouth nightly Active DULoxetine DR (CYMBALTA) 30 mg capsule Take 1 capsule (30 mg total) by mouth 2 (two) times a day 023 Active loperamide (IMODIUM) 2 mg capsuleIndicati ons: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 breast in female, estrogen receptor positive (HCC) Take 2 caps (4 mg) by mouth with first onset of diarrhea, 1 cap (2 mg) after each loose stool thereafter. Max 8 caps (16 mg) per 24 hours. 60 capsule 3 024 Active dextroamphetami ne-amphetamine (ADDERALL) 15 mg tablet TAKE 1 TABLET BY MOUTH TWICE DAILY 4 TO 6 HOURS APART 024 Active al & mag hydroxide simethicone-dip henhydramine-li docaine-nystati n (MAGIC MOUTHWASH) suspension 8-3-1-1Indicati ons:Mouth sores Swish and swallow 10 mL every 4 (four) hours as needed (Mouth pain) 400 mL [address] (CYMBALTA) 60 mg capsule Take 1 capsule (60 mg total) by mouth daily 024 Active nystatin cream Apply topically 2 (two) times a day To affected area until resolved 30 g 1 024 Active ondansetron (ZOFRAN) 8 mg tabletIndicatio ns: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 breast in female, estrogen receptor positive (HCC),Nausea and vomiting, unspecified vomiting type TAKE 1 TABLET BY MOUTH EVERY 8 HOURS NEEDED FOR NAUSEA AND VOMITING 30 tablet 3 024 Active diphenoxylate-a tropine (LOMOTIL) 2.5-0.025 mg per tabletIndicatio ns:diarrhea Take 1 tablet by mouth 4 (four) times a day as needed for diarrhea 30 tablet 025 Active fluticasone propionate (FLONASE) 50 mcg/actuation nasal spray 2 sprays daily 025 Active amitriptyline (ELAVIL) 50 mg tablet Take 1 tablet (50 mg total) by mouth nightly 30 tablet 11 025 2025 Active levothyroxine (SYNTHROID) 50 mcg tablet Take 1 tablet (50 mcg total) by mouth supervisor liquid yeast before breakfast 30 tablet 2 025 Active docusate sodium (COLACE) 100 mg capsuleIndicati ons: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 breast in female, estrogen receptor positive (HCC),Constipat ion, unspecified constipation type TAKE 1 CAPSULE BY MOUTH 2 TIMES A DAY NEEDED FOR CONSTIPATION 60 capsule 1 025 Active prochlorperazin e (COMPAZINE) 10 mg tabletIndicatio ns: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 breast in female, estrogen receptor positive (HCC),Nausea TAKE 1 TABLET(10 MG) BY MOUTH EVERY 6 HOURS NEEDED FOR NAUSEA OR VOMITING 60 tablet 1 025 Active omeprazole (PriLOSEC) 40 mg capsule TAKE 1 CAPSULE BY MOUTH DAILY FOR 8 WEEKS 025 Active gabapentin (NEURONTIN) 300 mg capsuleIndicati ons: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 breast in female, estrogen receptor positive (HCC) TAKE 1 CAPSULE BY MOUTH EVERY MORNING AND 2 CAPSULES BY MOUTH AT NIGHT 90 capsule 3 025 Active abemaciclib (VERZENIO) 150 mg tabletIndicatio ns: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 breast in female, estrogen receptor positive (HCC) Take 1 tablet (150 mg total) by mouth 2 (two) times a day 60 tablet 4 025 Active dicyclomine (BENTYL) 20 mg tabletIndicatio ns:Abdominal cramping TAKE 1 TABLET(20 MG) BY MOUTH FOUR TIMES DAILY NEEDED FOR ABDOMINAL CRAMPS 120 tablet 1 025 Active anastrozole (ARIMIDEX) 1 mg tabletIndicatio ns: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 breast in female, estrogen receptor positive (HCC) TAKE 1 TABLET BY MOUTH EVERY DAY 90 tablet 3 025 Active omeprazole (PriLOSEC) 20 mg capsuleIndicati ons:Treatment of Non-Bleeding Gastric Disorder Take 1 capsule (20 mg total) by mouth every morning 022 2024 Discontinued(T herapy completed) abemaciclib (VERZENIO) 150 mg tabletIndicatio ns: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 breast in female, estrogen receptor positive (HCC) Take 1 tablet (150 mg total) by mouth 2 (two) times a day 56 tablet 11 024 2024 Discontinued(D uplicate order) anastrozole (ARIMIDEX) 1 mg tabletIndicatio ns: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 breast in female, estrogen receptor positive (HCC) TAKE 1 TABLET BY MOUTH EVERY DAY 90 tablet 3 024 2024 Discontinued prochlorperazin e (COMPAZINE) 10 mg tabletIndicatio ns: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 breast in female, estrogen receptor positive (HCC),Nausea Take 1 tablet (10 mg total) by mouth every 6 (six) hours as needed for nausea or vomiting 60 tablet 1 025 2024 Discontinued gabapentin (NEURONTIN) 300 mg capsuleIndicati ons: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 breast in female, estrogen receptor positive (HCC) TAKE 1 CAPSULE BY MOUTH EVERY MORNING AND 2 CAPSULES BY MOUTH AT NIGHT 90 capsule 3 025 2024 Discontinued(R eorder) dicyclomine (BENTYL) 20 mg tabletIndicatio ns:Abdominal cramping TAKE 1 TABLET(20 MG) BY MOUTH FOUR TIMES DAILY NEEDED FOR ABDOMINAL CRAMPS 120 tablet 1 025 2024 Discontinued Active Problems Problem Noted Date [...] from 02/24/2022:Stage IIA(cT2, cN0(f), cM0, G3, ER+, PA+, HER2-) - Signed by Ilda Jenkins MD on 11/25/2022 Pathologic stage from 10/05/2022:No Stage Recommended(ypT1a, pN1mi(sn), cM0, GX, ER+, PA+, HER2-) - Signed by Ilda Jenkins MD on 11/25/2022 Overview (03/08/2022): Added automatically from request for surgery [id number] Assessment & Plan (05/03/2022 12:59 PM CDT): [...] Encounters Date Type Department Care Team Description 09/18/2025 2:30 PM MANAGER OF CORPORATE COMMUNICATIONS Office Visit [facility] Medicine Oncology [address] [place] [address] Yasir Gonzalez MD 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 breast in female, estrogen receptor positive (HCC) (Primary Dx); superintendent terminal (current) use of aromatase inhibitors 09/18/2025 1:30 PM MANAGER OF CORPORATE COMMUNICATIONS Lab [facility] - Lab Collection [address] [place] [address] 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 breast in female, estrogen receptor positive (HCC); longterm (current) use of aromatase inhibitors 09/10/2025 11:00 AM CDT Office Visit [facility] Cardiology [address] [place] [address] Neha Roche NP History of chest pain; SVT (supraventricular tachycardia) 08/14/2025 9:50 AM CDT Lab [facility] [address] [place] [address] Migraine with aura and without status migrainosus, not intractable 08/14/2025 9:00 AM CDT Office Visit [facility] [address], [place] [address] Rod Barrett MD Migraine with aura and without status migrainosus, not intractable (Primary Dx); Medication overuse headache 08/14/2025 Results [facility] [address] [place] [phone] Rod Barrett MD Thyroid Function Rich, T4, free from Last 3 Months Immunizations Immunization Administration Dates Next Due Influenza, Quadrivalent, Marisol l Culture-based MDCK, Preservative Free, Antibiotic Free, Intramuscular 09/02/2023 Influenza, Quadrivalent, Spl it, Preservative Free, Intramuscular 10/15/2021 Influenza, Trivalent, Cell Culture-based MDCK, Preservative Free, Antibiotic Free, Intramuscular 10/03/2024(Deferred: Other),10/03/2024 Influenza, Trivalent, IM (MDV) 08/29/2013,2011 Influenza, Trivalent, Preser vative Free, Intramuscular 09/18/2025 Influenza, Unspecified 08/29/2013,08/23/2012 Sars-cov-2 Covid-19 Mrna, Bi valent, Original/omicron Ba.1 09/24/2022 Tdap 03/18/2018 ZOSTER LIVE 10/08/2018,07/04/2018 ZOSTER Recombinant 10/08/2018,07/04/2018 Surgical History Surgery Date [...] Chest pain Anxiety 1989 Arthritis 2019 Migraines 1980 Family History Medical History Relation Name Comments [...] Passive Smoke Exposure: Never Smokeless Tobacco: Never Tobacco Cessation:Counseling Given: Not Answered AUDIT-C Answer Date Recorded Q1: How often [...] on file Legal Sex Female 2:50 AM MANAGER OF CORPORATE COMMUNICATIONS Gender Identity Female 03/11/2022 12:06 PM CDT Sexual Orientation Straight 03/11/2022 12 :06 PM CDT Obstetrics History Para Term AB IAB SAB Ectopic Multiple Livin g Live Births 3 2 Date Outcome GA Total Labor Labor/2nd/3rd Weight Sex Type Anes PTL Pamela A1 A5 Name Clin Para Para Last Filed Vital Signs Vital Sign Reading Time Taken Comments Blood Pressure 100/64 09/18/2025 2:24 PM MANAGER OF CORPORATE COMMUNICATIONS Pulse 83 09/18/2025 2:24 PM MANAGER OF CORPORATE COMMUNICATIONS Temperature 37.8 C (100 F) 09/18/2025 2:24 PM MANAGER OF CORPORATE COMMUNICATIONS Respiratory Rate 18 09/18/2025 2:24 PM MANAGER OF CORPORATE COMMUNICATIONS Oxygen Saturation 94% 09/18/2025 2:24 PM MANAGER OF CORPORATE COMMUNICATIONS Inhaled Oxygen Concentration - - Weight 71 kg (156 lb 9.6 oz) 09/18/2025 2:24 PM MANAGER OF CORPORATE COMMUNICATIONS Height 165.1 cm (5' 5) 09/10/2025 10:58 AM CDT Body Mass Index 26.06 09/10/2025 10:58 AM CDT Plan of Treatment Health Maintenance Due Date Last Done Comments Cervical Cancer Screening 1961 Colon Cancer Screening-Colonoscopy 1961 Depression Screening 1961 Hepatitis C Screening 1961 Hepatitis B Screening 1979 Regular Well Visit/Exam 18-64 1979 Pneumococcal vaccine <65 (1 of 2 - PCV) 02/04/1980 Covid-19 Vaccine (2024-2 6 season) 2025 09/24/2022, 09/14/2021, 2021, Additional history exists Breast Cancer Screening-Mammogram 05/07/2026 05/07/2025, 04/30/2024, 05/25/2023, Additional history exists DTaP/Tdap/Td Vaccine (2 - Td or Tdap) 03/18/2028 03/18/2018 Zoster Vaccine Completed 10/08/2018, 09/15, 07/04/2018, Additional history exists Influenza Vaccine Completed 09/18/2025, , 09/02/2023, Additional history exists Medical Devices Implanted Type Area Street Light Inspector Device Identifier Shelf Expiration Date Model / Serial / Lot Bard Peripheral V[employer] Ultraclip Bard 17ga 10cm 2 Trigger Permanent Ultrasound [id number] - [id number] Implanted:Qty: 1 on 02/24/2022 at [facility] [employer] [id number] / / [employer] Powerport Clearvue Airguard 8fr 1 Lumen Lightweight Intermediate Latex Free [id number] - [id number] Implanted:Qty: 1 on 03/16/2022 by Aft, Ciara Dorsey MD PhD at [facility] Right: Chest [employer] 05/13/2023 [id number] / / [id number] [employer]ascular Dylaniatas 20ga 15cm 5cm Beaded Needle Breast Wire Localization [id number] - [id number] Implanted:Qty: 1 on 10/05/2022 at [facility] Left: Breast [employer] [id number] / / Procedures Procedure Name Priority Date/Time Associated Diagnosis Comments EGFR Routine 09/18/2025 2:14 PM MANAGER OF CORPORATE COMMUNICATIONS 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 breast in female, estrogen receptor positive (HCC) superintendent terminal (current) use of aromatase inhibitors DIFFERENTIAL AUTO Routine 09/18/2025 2:1 4 PM MANAGER OF CORPORATE COMMUNICATIONS 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 breast in female, estrogen receptor positive (HCC) superintendent terminal (current) use of aromatase inhibitors CBC WITH AUTO DIFFERENTIAL Routine 09/18/2025 2:14 PM MANAGER OF CORPORATE COMMUNICATIONS 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 breast in female, estrogen receptor positive (HCC) longterm (current) use of aromatase inhibitors COMPREHENSIVE METABOLIC PANEL Routine 09/18/2025 2:14 PM MANAGER OF CORPORATE COMMUNICATIONS 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 breast in female, estrogen receptor positive (HCC) superintendent terminal (current) use of aromatase inhibitors GUARDANT REVEAL Routine 09/18/2025 2:08 PM MANAGER OF CORPORATE COMMUNICATIONS 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 breast in female, estrogen receptor positive (HCC) T4, FREE Routine 08/14/2025 9:53 AM CDT Migraine with aura and without status migrainosus, not intractable THYROID FUNCTION CASCADE Routine 08/14/2025 9:53 AM CDT Migraine with aura and without status migrainosus, not intractable DIAGNOSTIC MAMMOGRAM BILATERAL W REESE Schedule Routine, Read Routine (OP Routine) 05/07/2025 2:56 PM CDT History of breast cancer from Last 3 Months or Most Recently Relevant to Health Maintenance Results * eGFR (09/18/2025 2:14 PM MANAGER OF CORPORATE COMMUNICATIONS) [facility] eGFR 71 >=60 mL/min/1. 73 m2 Comment: Interpretive Data [...] interpretive data was last reviewed 2021. Blood 09/18/2025 2:14 PM MANAGER OF CORPORATE COMMUNICATIONS 09/18/2025 2:20 PM MANAGER OF CORPORATE COMMUNICATIONS us Yasir Gonzalez MD LAB BLOOD ORDERAB LES Final Result [facility] [place] [address] * (ABNORMAL) Differential, auto (09/18/2025 2:14 PM MANAGER OF CORPORATE COMMUNICATIONS) [facility] Neutrophil abs 2.37 1.50 - 6.50 K/cumm Comment:Testing performed by : [facility], [address] [place] [phone] Lymphocyte abs 0.49(L) 0.80 - 3.30 K/cumm [facility] Comment:Testing performed by : [facility], [address] [place] [phone] Monocyte abs 0.28 0.20 - 0.80 K/cumm [facility] Comment:Testing performed by : [facility], [address] [place] [phone] Eosinophil abs 0.19 0.00 - 0.50 K/cumm [facility] Comment:Testing performed by : [facility], [address] [place] [phone] Basophil abs 0.05 0.00 - 0.10 K/cumm [facility] Comment:Testing performed by : [facility], [address] [place] [phone] Neutrophil pct 70.1 % [facility] Comment: Interpretive Data Percent cell count reference ranges are not reported, since discordance with absolute values may lead to misinterpretation of CBC data. Current Interpretive Data was last revised on 2018. Testing performed by: [facility], [address] [place] [phone] Lymphocyte pct 14.4 % [facility] Comment: Interpretive Data Percent cell count reference ranges are not reported, since discordance with absolute values may lead to misinterpretation of CBC data. Current Interpretive Data was last revised on 2018. Testing performed by: [facility], [address] [place] [phone] Monocyte pct 8.4 % [facility] Comment: Interpretive Data Percent cell count reference ranges are not reported, since discordance with absolute values may lead to misinterpretation of CBC data. Current Interpretive Data was last revised on 2018. Testing performed by: [facility], [address] [place] [phone] Eosinophil pct 5.7 % [facility] Comment: Interpretive Data Percent cell count reference ranges are not reported, since discordance with absolute values may lead to misinterpretation of CBC data. Current Interpretive Data was last revised on 2018. Testing performed by: [facility], [address] [place] [phone] Basophil pct 1.5 % [facility] Comment: Interpretive Data Percent cell count reference ranges are not reported, since discordance with absolute values may lead to misinterpretation of CBC data. Current Interpretive Data was last revised on 2018. Testing performed by: [facility], [address] [place] [phone] Blood 09/18/2025 2:14 PM MANAGER OF CORPORATE COMMUNICATIONS 09/18/2025 2:17 PM MANAGER OF CORPORATE COMMUNICATIONS Yasir Gonzalez MD LAB BLOOD ORDERAB LES Final Result [facility] [place] [address] * (ABNORMAL) CBC with auto differential (09/18/2025 2:14 PM MANAGER OF CORPORATE COMMUNICATIONS) WBC 3.38(L) 3.80 - 9.90 K/cumm Comment:Testing performed by : [facility], [address] [place] [address] Hgb 10.7(L) 11.9 - 15.5 g/dL [facility] Comment:Testing performed by : [facility], [address] [place] [address] Hct 30.2(L) 35.6 - 45.5 % [facility] Comment:Testing performed by : [facility], [address] [place] [address] Plt 252 150 - 400 K/cumm [facility] Comment:Testing performed by : [facility], [address] [place] [address] MPV 6.1(L) 6.8 - 10.4 fL [facility] Comment:Testing performed by : [facility], [address] [place] [address] RBC 2.72(L) 3.90 - 5.20 M/cumm [facility] Comment:Testing performed by : [facility], [address] [place] [address] MCV 111.0(H) 81.3 - 96.4 fL [facility] Comment:Testing performed by : [facility], [address] [place] [address] MCH 39.4(H) 27.1 - 33.3 pg [facility] Comment:Testing performed by : [facility], [address] [place] [phone] MCHC 35.5 32.3 - 35.7 g/dL [facility] Comment:Testing performed by : [facility], [address] [place] [phone] RDW CV 14.0 11.1 - 14.9 % [facility] Comment:Testing performed by : [facility], [address] [place] [phone] NRBC abs 0.00 0.00 - 0.01 K/cumm [facility] Comment:Testing performed by : [facility], [address] [place] [phone] Blood 09/18/2025 2:14 PM MANAGER OF CORPORATE COMMUNICATIONS 09/18/2025 2:17 PM MANAGER OF CORPORATE COMMUNICATIONS Yasir Gonzalez MD LAB BLOOD ORDERAB LES Final Result [facility] [place] [address] * (ABNORMAL) Comprehensive metabolic panel (09/18/2025 2:14 PM MANAGER OF CORPORATE COMMUNICATIONS) Sodium 136 135 - 145 mmol/L Potassium, pl 4.6 3.3 - 4.9 mmol/L [facility] Chloride 99 97 - 110 mmol/L [facility] CO2 29 22 - 32 mmol/L [facility] Anion gap 8 2 - 15 mmol/L [facility] BUN 17 6 - 25 mg/dL [facility] Creatinine 0.90 0.60 - 1.10 mg/dL [facility] Glucose 92 70 - 199 mg/dL [facility] Comment: Interpretive Data Fasting glucose >/= 126 [...] interpretive data was last revised 2022. Calcium 9.3 8.5 - 10.3 mg/dL [facility] Bilirubin, total 0.5 0.1 - 1.2 mg/dL [facility] Protein, pl 6.4(L) 6.5 - 8.5 g/dL [facility] Albumin 3.7 3.5 - 5.0 g/dL [facility] Alk phos 93 40 - 130 Units/L [facility] ALT 14 7 - 45 Units/L [facility] AST 33 10 - 45 Units/L [facility] Blood 09/18/2025 2:14 PM MANAGER OF CORPORATE COMMUNICATIONS 09/18/2025 2:20 PM MANAGER OF CORPORATE COMMUNICATIONS Yasir Gonzalez MD LAB BLOOD ORDERAB LES Final Result [facility] [place] [address] * [facility] Reveal One-Time Order (09/18/2025 2:08 PM MANAGER OF CORPORATE COMMUNICATIONS) [facility] TUMOR FRACTION 0% 09/27/2025 6:23 PM MANAGER OF CORPORATE COMMUNICATIONS [facility] Blood specimen (specimen) Venous blood specimen / Unknown 09/18/2025 2:08 PM MANAGER OF CORPORATE COMMUNICATIONS 09/20/2025 3:33 PM MANAGER OF CORPORATE COMMUNICATIONS Yasir Gonzalez MD LAB GENETIC TESTI NG Final Result [facility] [address] [place] [address], [facility] [phone] [facility] [address] [place] [address] * (ABNORMAL) Thyroid Function Rich (08/14/2025 9:53 AM CDT) TSH 5.42(H) 0.30 - 4.20 mcIUnit/mL Blood 08/14/2025 9:53 AM CDT 08/14/2025 12:44 PM CDT Rod Barrett MD LAB BLOOD ORDERABLES Final Result Performing Organization Address City/[facility]/ZIP Co de Phone Number [facility] [address] [facility] [employer] [place] [address] * T4, free (08/14/2025 9:53 AM CDT) Free T4 0.90 0.90 - 1.70 ng/dL Blood 08/14/2025 9:53 AM CDT 08/14/2025 12:44 PM CDT Narrative [facility] - 08/14/2025 3:25 PM CDT This test was reflexed from a TSH result. Rod Barrett MD LAB BLOOD ORDERABLES Final Result Performing Organization Address [facility] Co de Phone Number [facility] [address] [facility] [employer] [place] [address] * Diagnostic Mammogram Bilateral W Reese (05/07/2025 [...] breast ultrasound was performed by a trained import customs clearing agent. BREAST PARENCHYMAL COMPOSITION: The breasts are extremely [...] Most Recently Relevant to Health Maintenance Insurance [facility] HMO/PPO Address: [facility] [id number] [place] [id number] [facility] HMO/PPO Address: [address] [address] [facility] HMO/PPO Address: [address] [place] [phone] Advance Directives For more information, please contact: [phone] * Full Code (Latest Code Status on File) Date Activated Date Inactivated Comments 05/01/2022 8:25 PM 05/03/2022 7:39 PM Care Teams Senior Statistical Programmer Relationship Specialty Start Date End Date Yossi Reaves MD [address] [facility] [address] [place] [address] PCP - General Family Practice 09/02/23 Yasir Gonzalez MD [address] [place] [address] Consulting Physician Medical Oncology 03/08/22 Aft, Ciara Dorsey MD PhD [address] [place] [address] Surgeon Surgical Oncology 03/16/22 Monika Bryant MD [address] [facility] [address] [place] [address] Radiation Oncologist Radiation Oncology 11/25/22 Yeny Oliveira, PhD [address] [facility] [address] [place] [address] Nurse Practitioner Radiation Oncology 02/07/23 Jessenia Vaughn NP [address] [place] [address] Nurse Practitioner Nurse Practitioner 09/05/23
--- OUTSIDE RECORDS SUMMARY | 2025-10-11 12:07 | XMS_ITS | Encounter Summary ---
Author Organization [facility] Address [address] [place] [address] Care Team Providers Care Legal Paraprofessional Name Role Phone Unavailable Primary Care Provider Unavailabl e Encounter Details Date Type Department Care Team (Latest Contact Info) Description 08/11/1999 Outpatient Historical [facility] Clinton Mota MD NO ADDRESS ON FILE Female infertility associated with anovulation (Primary Dx) Social History Tobacco Use Types Packs/Day Years Used Date Smoking Tobacco: Never Assessed Comments Unknown Sex and Gender Information Value Date Recorded Sex Assigned at Not on file Legal Sex Female 4:53 AM NEWSPAPER 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
--- OUTSIDE RECORDS SUMMARY | 2025-10-11 12:07 | XMS_ITS | Patient Health Record ---
Author Organization [facility] Address [address] [place], [place] [address] Care Team Providers Care Neuropsychology Medical Consultant Name Role Phone MOIZ Sadler Unavailable [phone] Wei Swan Unavailable Unavailable Reason For Referral No Information Social History Social History Additional Details Category Social Info Options Details Migrated Social History Migrated Social History History of tobacco use : , Smoking Status : Never smoked , Alcohol intake : Plan Of Treatment No Information Insurance Providers Payer Name Payer Address Payer Phone Subscriber Number Group Number Insured Name Patient Relationship to Insured Coverage Start Date [facility]age End Date [facility] [address] [place], [place] [id number] ALEXANDER GUEVARA Self - patient is the insured
--- OUTSIDE RECORDS SUMMARY | 2025-10-11 12:07 | XMS_ITS | Encounter Summary ---
Author Organization [facility] Address 

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
--- OUTSIDE RECORDS SUMMARY | 2025-10-11 12:07 | XMS_ITS | Encounter Summary ---
Author Organization [facility] Address 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
--- OUTSIDE RECORDS SUMMARY | 2025-10-11 12:07 | XMS_ITS | Encounter Summary ---
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 Gender Identity Female 03/11/2022 12:06 PM CDT [...] on filedocumented in this encounter Care Teams Reverberatory Skimmer Relationship Specialty Start Date End Date Yossi Reaves MD [address] [facility] [address] [place] [address] PCP - General Family Practice 09/02/23 Yasir Gonzalez MD [address] [place] [address] Consulting Physician Medical Oncology 03/08/22 Aft, Ciara Dorsey MD PhD [address] [place] [address] Surgeon Surgical Oncology 03/16/22 Monika Bryant MD [address] [facility] [address] [place] [address] Radiation Oncologist Radiation Oncology 11/25/22 Yeny Oliveira, PhD [address] [facility] [address] [place] [address] Nurse Practitioner Radiation Oncology 02/07/23 Jessenia Vaughn NP [facility] [place] [address] Nurse Practitioner Nurse Practitioner 09/05/23 documented as of this encounter
--- OUTSIDE RECORDS SUMMARY | 2025-10-11 12:07 | XMS_ITS | Encounter Summary ---
Author Organization [employer] Address 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
--- OUTSIDE RECORDS SUMMARY | 2025-10-11 12:07 | XMS_ITS | Encounter Summary ---
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 Gender Identity Female 03/11/2022 12:06 PM CDT [...] filedocumented in this encounter Care Teams Community Educator Relationship Specialty Start Date End Date Yossi Reaves MD [address] [place] [address] PCP - General Family Practice 09/02/23 Yasir Gonzalez MD [address] [place] [address] Consulting Physician Medical Oncology 03/08/22 Aft, Ciara Dorsey MD PhD [address] [place] [address] Surgeon Surgical Oncology 03/16/22 Monika Bryant MD [address] [place] [address] Radiation Oncologist Radiation Oncology 11/25/22 Yeny Oliveira, PhD [address] [place] [address] Nurse Practitioner Radiation Oncology 02/07/23 Jessenia Vaughn NP [address] [place] [address] Nurse Practitioner Nurse Practitioner 09/05/23 documented as of this encounter
--- OUTSIDE RECORDS SUMMARY | 2025-10-11 12:07 | XMS_ITS | Data Portability ---
Author Organization [facility] [place] Address [address] [place] [address] [place] [address] Care Team Providers Care Instrument Worker Name Role Phone LUCIO SCHRADER Primary Care [...] new symptoms. [email or web address] Not available 09/03/2024 14:47:06 09/05/2025 09/05/2025 Annual gynecological exam performed. Patient will come back in a year unless there are new symptoms. [email or web address] Not available 09/05/2025 14:08:37 Plan of Treatment Reminders Order Date Submit Date Provider Last Modified By Organization Details Last Modified Time Details Appointments [facility] 2025 01:00P M LENORA HATCH NP Not available Not available Not available Lab urinalysi s, dipstick 2023 024 [email or web address] [facility], [place], [address], 09/03/2024 14:26:45 Referral None recorded. Procedures None recorded. Surgeries None recorded. Imaging MAMMO, diagnosti c, unilatera l 2021 022 JONAS [facility], [address], [place], [address], 01/08/2022 10:06:45 US, breast, unilatera l 2021 022 [facility], [address], [place], [address], 03/22/2022 17:18:35 Medication Orders None recorded. Patient TargetsNo targets recorded. Patient InstructionsNo instructions recorded. Reason for Referral None Reported. 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 CLINI DANE INFOR MATIO N: Menst rual Statu s: LMP (if appli cable ): Clini dane Histo ry/Pr eviou s Pap: Type of Neopl anjelica (if appli cable ): Signi fican t Clini dane Findi ngs: Other Histo ry: Hormo devin [...] techn ique. Alison nued regul ar scree aj is the best metho d of cance r preve ntion . If repor desiree cytol ogic findi ng do not corre late with physi dane and/o r histo rical findi ngs, furth er inves tigat ion is recom mikhail d, as clini maureen moore nted. Not Available [facility] [id number] [facility], [place], [address], 08/17/2022 13:56:46 08/16/20 23 08/16/2023 IMAGE GUIDE D PAP AND HPV REGAR DLESS image guided Pap, HPV regardless of Pap result SEE RESULT S BELOW CASE REPOR T: Cytol ogy Gynec ologi dane Repor t Case: [id number] Autho tina santizo Provi sujit: Niko silvio , Dima Albarado cted: 08/16 1400 BULLARD OPERATOR Order ing Locat ion: [place] Patho logy [...] n or Ilan qureshi (NIL) . Atrop hy prese nt. Elect ade moe deann d by Whitley crabtree, [place] og[place], [place] on 2022 at 3:22 PM ----- [...] Thinp rep Imagi ng Syste m. CLINI DAEN INFOR MATIO N: Menst rual Statu s: LMP (if appli cable ): Clini dane Histo ry/Pr eviou s Pap: Type of Neopl anjelica (if appli cable ): Signi fican t Clini dane Findi ngs: Other Histo ry: Hormo devin [...] ng do not corre late with physi dane and/o r histo rical findi ngs, furth er inves tigat ion is recom mikhail d, as clini maureen warra nted. Not Available [facility] (Lab) [address], [place], [address], 08/18/2023 16:24:50 09/03/20 24 09/03/2024 urina lysis , dipst ick Leukocytes - Not Available [facility] [address], [place], [address], 09/03/2024 14:24:36 09/03/20 24 09/03/2024 urina lysis , dipst ick Nitrite - Not Available [facility] [address], [place], [address], 09/03/2024 14:24:36 09/03/20 24 09/03/2024 urina lysis , dipst ick Urobilinogen - Not Available Quique grissom [address], [place], [address], 09/03/2024 14:24:36 09/03/20 24 09/03/2024 urina lysis , dipst ick Protein - Not Available [facility] [address], [place], [address], 09/03/2024 14:24:36 09/03/20 24 09/03/2024 urina lysis , dipst ick pH 5 Not Available [facility] [address], [place], [address], 09/03/2024 14:24:36 09/03/2009/03/2024 urina lysis , dipst ick Specific [place] 1.[address] [facility] [address], [place], [address], 09/03/2024 14:24:36 09/03/20 24 09/03/2024 urina lysis , dipst ick Ketone - Not Available [facility] [address], [place], [address], 09/03/2024 14:24:36 09/03/20 24 09/03/2024 urina lysis , dipst ick Bilirubin - Not [facility] [address], [place], [address], 09/03/2024 14:24:36 09/03/2009/03/2024 urina lysis , dipst ick Glucose - Not Available [facility] [address], [place], [address], 09/03/2024 14:24:36 09/03/2009/03/2024 urina lysis , dipst ick Appearance clear Not Available Randa contreras [address], [place], [address], 09/03/2024 14:24:36 09/03/20 24 09/03/2024 urina lysis , dipst ick Color Dark yellow Not Available [facility] [address], [place], [address], 09/03/2024 14:24:36 01/08/20 22 MAMMO , diagn ostic , unila teral No observ ation record ed. JONAS [facility] [address], [place], [address], 01/15/2022 13:02:25 Result Notes None recorded. Problems Name Problem SNOMED Code Status Onset Date Resolution Date Notes Provider Name and Address Organization Details Recorded Time Proteinu herman 36585034 Completed 201007/21/2021 Proteinu herman;Prac edgardo ID: 0001 Miranda song [facility] 11:00:02 Uterovag inal prolapse 19033767 Completed 201007/21/2021 Uterovag inal prolapse , unspecif ied;Prac edgardo ID: 0001 Miranda [facility], [facility] 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 10:59:49 Incomple te uterovag inal prolapse [id number] Completed 201007/21/2021 Uterovag inal prolapse , incomple te;Pract ice ID: 0001 Miranda [facility], [facility] 10:59:15 Cyst of ovary [id number] Completed 201007/21/2021 OVARIAN CYST;Pra ctice ID: 0001 Miranda [facility] 10:49:09 Dysfunct ional uterine bleeding Completed 201107/21/2021 Other disorder s of menstrua tion and other abnormal bleeding from female genital tract;Re corded Elsewher e: No Locat ion[facility] N Sohanti ce ID: 0001 Román lable Time: 04:30:00 PM Miranda Toledo duncan, [facility] 1 10:58:46 Insertio n of intraute rine contrace ptive device Completed 201107/21/2021 INSERTIO N OF IUD;Murtaza rded Elsewher e: No Locat ion: [facility] N Sohanti ce ID: 0001 Román lable Time: 11:45:00 AM Miranda [facility], [facility] 1 10:59:21 Pregnanc y test negative [id number] Completed 201107/21/2021 Pregnanc y examinat ion or test, negative result;R ecorded Elsewher e: No Locat ion: [facility] S ource: [facility] iva: N Sohanti ce ID: 0001 Román lable Time: 11:45:00 AM Miranda [facility], [facility] 1 10:59:58 Speciali zed medical examinat ion Completed 201207/21/2021 Gynecolo gical Examinat ion;Murtaza rded Elsewher e: No Locat ion: [facility] Kunal Parryti ce ID: 0001 Román lable Time: 11:00:00 AM Miranda Toledo duncan, [facility] 1 11:00:26 Mucous polyp of cervix 19410643 Completed 201207/21/2021 Mucous polyp of cervix;R ecorded Elsewher e: No Locat ion: [facility] N Sohanti ce ID: 0001 Román lable Time: 11:00:00 AM Miranda [facility], [facility] 1 10:59:46 Screenin g for malignan t neoplasm of rectum Completed 201407/21/2021 Screenin g for malignan t neoplasm s of the rectum;R ecorded Elsewher e: No Locat ion: [facility] S ource: [employer] iva: N Practi ce ID: 0001 Román lable Time: 11:00:00 AM Miranda Paris duncan, [facility] 11:00:15 Leukocyt osis [id number] Completed 201407/21/2021 LEUKOCYT OSIS NOS;Prac edgardo ID: 0001 Miranda Toledo dunacn, [facility] 10:59:26 Microsco pic hematuri a [id number] Completed 201407/21/2021 MICROSCO PIC HEMATURI A;Practi ce ID: 0001 Miranda Toledo duncan [facility] 10:59:30 Adult health examinat ion Completed 201407/21/2021 Routine general medical examinat ion at a health care facility ;Practic e ID: 0001 Miranda [facility], [facility] 10:41:46 Screenin g for malignan t neoplasm of cervix Completed 201407/21/2021 SCREEN MAL NEOP-CER VIX;Prac edgardo ID: 0001 Miranda Toledo duncan, [facility] 11:00:09 Blood in urine [id number] Completed 201407/21/2021 HEMATURI A NOS;Murtaza rded Elsewher e: No Locat ion: [facility] S ource: [employer] iva: N Practi ce ID: 0001 Román lable Time: 10:11:05 AM Miranda Toledo duncan [facility] 10:41:49 Urinary tract infectio us disease [id number] Completed 201507/21/2021 Urinary tract infectio n, site not specifie d;Faisal ce ID: 0001 Miranda song [facility] [address] 11:00:[address] Concept Completed 201507/21/2021 Encntr for clock smith exam (general ) (routine ) w/o abn findings ;Practic e ID: 0001 Miranda song [facility] 1 11:00:24 Removal of intraute rine device Completed 201507/21/2021 Encounte r for removal of intraute rine contrace ptive device;P ractice ID: 0001 Miranda song [facility] 11:00:[address] Concept Completed 201607/21/2021 Encntr for general adult medical exam w/o abnormal findings ;Practic e ID: 0001 Miranad [facility] 11:00:19 Evaluati on finding Completed 201607/21/2021 Oth abn and inconclu sive findings on dx imaging of breast;R ecorded Elsewher e: No Locat ion: [facility] S ource: [employer] iva: N Faisal ce ID: 0001 Román lable Time: 10:36:46 AM Miranda [facility] 10:41:52 Pelvic and perineal pain 127575604 Completed 201707/21/2021 Pelvic and perineal pain;Rec orded Elsewher e: No Locat ion: [facility] S ource: [employer] iva: N Sohanti ce ID: 0001 Román lable Time: 03:30:00 PM Miranda [facility] 10:59:53 Polyp of cervix [id number] Completed 201707/21/2021 Polyp of cervix uteri;Re corded Elsewher e: No Locat ion: [facility] S ource: [employer] iva: N Sohanti ce ID: 0001 Román lable Time: 11:00:00 AM Miranda song [facility] 10:59:55 Menopaus e present [id number] Completed 201707/21/2021 Symptoms such as flushing , sleeples sness, headache , lack of concentr ation, associat ed with natural (age-rel ated) menopaus e;Record ed Elsewher e: No Locat ion: Christine mi [facility] S ource: [employer] iva: N Practi ce ID: 0001 Román lable Time: 11:00:00 AM Miranda song [facility] 10:59:28 Evaluati on finding Completed 201807/21/2021 Hematuri a, unspecif ied;Murtaza rded Elsewher e: No Locat ion: Christine [facility] S ource: [employer] iva: N Sohanti ce ID: 0001 Román lable Time: 08:26:20 AM Miranda song [facility] 10:58:50 Problem Notes None recorded. Procedures Surgical History Date Name Laterality Status Provider Name and Address Organization Details Recorded Time 025 Date of Last Mammogram completed Niya Conway [facility] 09/05/2025 14:12:13 023 Date of Last Pap Smear completed Edith Najera [facility] 09/03/2024 14:12:05 023 Most Recent Bone Density completed Gisel Snowden [facility] 08/16/2023 12:39:48 022 excision of mass of breast completed Niya Conway [facility] 09/05/2025 14:14:56 021 completed Kierra Brandon [facility] 11/17/2021 15:52:53 021 Date of Last Colonoscopy completed [facility] 11/17/2021 15:52:53 020 cholecystectomy completed Jessenia Vaughn [facility]- [address], [place], [address], [facility] 07/14/2020 13:04:07 018 cervical biopsy completed [facility] 11/17/2021 15:58:27 016 excision of bunion completed [facility] 07/21/2021 19:03:18 013 cervical polypectomy completed [facility] 07/21/2021 19:10:40 010 Carpal tunnel surgery completed [facility] 07/14/2020 10:54:58 997 Laparoscopy completed [facility] 07/21/2021 19:04:04 994 delivery completed [facility] 07/14/2020 10:55:31 993 Laparoscopy completed [facility] 07/21/2021 19:03:53 993 laparotomy completed [facility] 07/14/2020 10:54:48 985 Tonsillectomy completed [facility] 07/14/2020 10:54:31 Imaging Results None recorded. Procedure Notes None recorded. Medical Equipment None Reported. Allergies Allergen ID Allergen Name Allergen Category Reaction Reaction Severity Criticality Documentation Date Start Date Code Code System Note Provider Name and Address Organization Details Recorded Time 20569 adhesive environme nt,medica tion rash severe Not available 11/17/2021 Kierra Brandon [facility] 2 15:52:45 1883 Product containin g penicilli n (product) medicatio n rash severe Not available 07/14/2020 57373 8001 JOLANTA Juarez [facility] 0 10:54:05 Medications Name Sig Start [...] Prescrib ed Elsewher e: No Locat ion: [facility] odify By: kobe brown DateTime : 07/02/20 15 09:21:07 AM Not Available Not Available Not Available Coreg 3.125 mg tablet take 1 tablet by oral route 2 times every day with food 07/21 completed Prescrib ed Elsewher e: Yes Loca tion: [facility] odify By: doreen Malagon r DateTime : 02/20/20 12 09:56:27 PM Not Available Not Available Not Available Daily Vitamin tablet take 1 tablet by oral route every day with food 2011 active Prescrib ed Elsewher e: No Locat ion: [facility] odify By: elijah Malagon r DateTime [...] Prescrib ed Elsewher e: Yes Loca tion: [facility] odify By: aguila Malagon r DateTime [...] Prescrib ed Elsewher e: Yes Loca tion: [facility] M odify By: norberto coloradoer DateTime : 07/09/20 19 08:26:20 AM Not [...] Prescrib ed Elsewher e: No Locat ion: [facility] odify By: kobe brown DateTime : 06/30/20 16 10:42:35 AM Not Available Not Available Not Available prednisol one acetate 1 % eye drops,jessica pension 08/10 completed Not Available Not Available Not Available pravastat in 10 mg tablet take 1 tablet by oral route every day 11/02 completed Prescrib ed Elsewher e: Yes Loca tion: [facility] odify By: kobe brown DateTime : 07/05/20 18 01:30:00 PM Not Available Not Available Not Available Depo-Prov era 150 mg/mL intramusc ular suspensio n inject 1 millilit er (150MG) by intramus cular route every 3 months 06/14 completed Prescrib ed Elsewher e: No Locat ion: [facility] odify By: justus brown DateTime : 05/25/20 [...] Prescrib ed Elsewher e: Yes Loca tion: [facility] odify By: doreen Malagon r DateTime : 02/20/20 12 09:56:27 PM Not Available Not Available Not Available Cipro 500 mg tablet take 1 tablet by oral route every 12 hours 07/05 completed Prescrib ed Elsewher e: No Locat ion: [facility] odify By: kobe brown DateTime : 06/23/20 [...] Prescrib ed Elsewher e: Yes Loca tion: [facility] odify By: elijah Malagon r DateTime [...] ne propionat e 50 mcg/actua tion nasal spray,[facility] thumb region SHAKE LIQUID AND USE 2 SPRAYS IN [...] Prescrib ed Elsewher e: No Locat ion: [facility] odify By: kobe brown DateTime : 06/28/20 16 08:15:00 AM Not Available Not Available Not Available iron ER 325 mg (65 mg iron) capsule,e xtended release take 1 Tablet by Oral route 3 times every day 05/25 completed Prescrib ed Elsewher e: Yes [facility] By: agapito nielson DateTime : 02/21/20 [...] Prescrib ed Elsewher e: Yes [facility] By: kobe brown DateTime : 06/04/20 [...] biotin 1 mg capsule 07/05 completed Prescrib ed Elsewher e: Yes [facility] By: kobe brown DateTime : 06/04/20 14 11:30:00 AM Not Available Not Available Not Available dextroamp hetamine sulfate 15 mg tablet 09/03 completed Not Available Not Available Not Available prochlorp erazine 09/03 completed Not Available Not Available Not Available Verzenio 150 mg tablet 09/05 completed Not Available Not Available Not Available Acid Care Analyst (omeprazo le) 20 mg capsule,d elayed release [...] and Address Organization Details Last Updated DateTime 12/22/2021 164.47 cm 29.5 kg/m2 46542.26 g 130/62 mm[Hg] [facility] 12/22/2021 15:02:25 Date Recorded Body height Body mass index (BMI) Body weight Systolic And Diastolic Provider Name and Address Organization Details Last Updated DateTime 08/10/2022 161.93 cm 30.4 kg/m2 14554.26 g 120/80 mm[Hg] [facility] 08/10/2022 14:19:17 Date Recorded Body height Body mass index (BMI) Body weight Systolic And Diastolic Provider Name and Address Organization Details Last Updated DateTime 08/16/2023 161.93 cm 29.6 kg/m2 67293.3 g 108/71 mm[Hg] Gisel Snowden [facility] 08/16/2023 12:37:18 Date Recorded Body height Body mass index (BMI) Body weight Systolic And Diastolic Systolic And Diastolic Provider Name and Address Organization Details Last Updated DateTime 09/03/2024 161.93 cm 32.8 kg/m2 61184.39 g 109/74 mm[Hg] 92/60 mm[Hg] Edith Blankton [facility] 14:09:02 Date Recorded Body height Body mass index (BMI) Body weight Systolic And Diastolic Provider Name and Address Organization Details Last Updated DateTime 09/05/2025 165.1 cm 26.5 kg/m2 15213.19 g 96/64 mm[Hg] Niya Floresalejandra [facility] 09/05/2025 14:09:22 Social History Question Answer Notes LastModified by Organizat ion Details LastModified Time Tobacco Smoking Status Never Smoker Olena Chavez duncan, [facility] 08/16/2023 12:23:20 Do You Have An Advance Directive? No Information n ot available 11/17/2021 How Many Years Have You Consumed Alcohol? 20 [email or web address] Information not available 09/03/2024 Are You Blind Or Do You Have Difficulty Seeing? No [email or web address] Information n ot available 07/21/2021 What Is Your Level Of Caffeine Consumption? Moderate [email or web address] Information not available 07/21/2021 How Much Tobacco Do You Chew? None Information not available 11/17/2021 In The 14 Days Before Symptom Onset, Have You Had Close Contact With A Laboratory-confirm ed COVID-19 While That Case Was Ill? No [email or web address] Information n ot available 07/21/2021 In The 14 Days Before Symptom Onset, Have You Had Close Contact With A Person Who Is Under Investigation For COVID-19 While That Person Was Ill? No Information not available 07/21/2021 Have You Been To An Area Known To Be High Risk For COVID-19? No [email or web address] Information not available 07/21/2021 Are You Deaf Or Do You Have Serious Difficulty Hearing? No [email or web address] Information not available 07/21/2021 What Type Of Diet Are You Following? REGULAR [email or web address] Information n ot available 07/21/2021 What Is The Highest Grade Or Level Of School You Have Completed Or The Highest Degree You Have Received? [id number] Information not available 11/17/2021 Are There Any Guns Present In Your Home? No Information not available 11/17/2021 Have You Ever Been Counseled For Unhealthy Alcohol Use? No [email or web address] Information not available 08/16/2023 Do You Use Protection During Sex? No Information not available 11/17/2021 Do You Use Your Seat Belt Or Car Seat Routinely? Yes [email or web address] Information not available 07/21/2021 Are You Sexually Active? No Information not available 09/05/2025 Do You Have Smoke And Carbon Monoxide Detectors In Your Home? Yes [email or web address] Information not available 07/21/2021 How Much Tobacco Do You Smoke? No Information not available 11/17/2021 Do You Use Sunscreen Routinely? Yes [email or web address] Information not available 07/21/2021 Has Tobacco Cessation Counseling Been Provided? No [email or web address] Information not available 08/16/2023 Have You Used IV Drugs? No Information not available 11/17/2021 Do You Have Difficulty Walking Or Climbing Stairs? Yes [email or web address] Information not available 09/05/2025 Sex: Unknown Functional Status Question Answer Note LastModified by Organizat ion Details LastModified Time Do you use any illicit or recreational drugs? No [email or web address] Information not available 07/21/2021 Do you or have you ever used any other forms of tobacco or nicotine? No [email or web address] Information not available 08/16/2023 What is your level of alcohol consumption? Moderate [email or web address] Information not available 09/03/2024 Are you currently employed? Yes [email or web address] Information not available 09/05/2025 Are you able to walk independently without assistance or assistive devices? YESASSIST [email or web address] Information not available 09/05/2025 Are you able to care for yourself independently? Yes [email or web address] Information not available 09/05/2025 What is your occupation? [employer] Information not available 11/17/2021 Do you have difficulty dressing, bathing, grooming, or toileting? No [email or web address] Information not available 09/05/2025 What is your exercise level? Occasional walking jgumber Information not available 07/14/2020 Mental Status Question Answer Note LastModified by Organization D etails LastModified Time Do you feel stressed (tense, restless, nervous, or anxious, or unable to sleep at night)? [id number] [email or web address] Information not available 07/21/2021 Family History Relationship Description Onset Age of this Age Resolved Age Notes LastModified by Organization Details LastModified Time Maternal Aunt Malignant neoplasm of colon [email or web address] Not available 2019 10:53:15 Maternal Grandmother Deep venous thrombosis [email or web address] Not available 09/03 14:02:31 Maternal Grandmother Polyp of colon [email or web address] Not available 2023 14:02:31 Maternal Grandfather Family history of malignant neoplasm of oral cavity [email or web address] Not available 08/15 14:02:31 Medical History Condition Response Allergies (Food, seasonal, environmental ) N Other Y Breast Cancer N Drug/Latex Allergies/Reactions N Blood Transfusion N Lung Disease N Dermatologic Disorders N Defects or Inherited Disease N Breast [...] ICD10 Code Diagnosis IMO Codes Diagnosis Note [id number] Jessenia Vaughn [facility] [address] [address] 07/14/2020 12:41:06 07/14/2020 13:14:36 Gynecologic examination [id number] Z01.419 Take Calcium with Vitamin D 12-1500mg daily. Do monthly self breast exams. It is advised to get annual flu shot in the fall and she could obtain at [facility] or [facility]. If you haven't received the Tdap vaccine in the last 10 years you should obtain one as well. Have mammogram yearly, bone density every 2-3 years and colonoscop y every 5-10 years depending on findings and history. Engage in daily exercise of low impact aerobic exercise 45-60 minutes 4-5 times weekly. Avoid tobacco and illicit drugs as well as using moderation with alcohol intake less than 1-2 8 oz beverages daily. This lifestyle behavior pattern will lead to less health conditions and longer life span. If BMI greater than 25 weight watchers or dietary consult advised. Questions have been answered. Patient appears to understand instructio ns, but if you have any further questions call or respond to this email Option to defer pap this year. Prefers to proceed with pap/hpv. Mammo ordered Dexa 2018 ok Colonoscop y 03/2020 Menopause approx 2017. [id number] Jessenia Vaughn [facility] [address] [address] 07/21/2021 10:22:21 07/22/2021 10:27:02 Gynecologic examination [id number] Z01.419 Take Calcium with Vitamin D 12-1500mg daily. Do monthly self breast exams. It is advised to get annual flu shot in the fall and she could obtain at [facility] or [facility] clinic. If you haven't received the Tdap vaccine in the last 10 years you should obtain one as well. Have mammogram yearly, bone density every 2-3 years and colonoscop y every 5-10 years depending on findings and history. Engage in daily exercise of low impact aerobic exercise 45-60 minutes 4-5 times weekly. Avoid tobacco and illicit drugs as well as using moderation with alcohol intake less than 1-2 8 oz beverages daily. This lifestyle behavior pattern will lead to less health conditions and longer life span. If BMI greater than 25 weight watchers or dietary consult advised. Questions have been answered. Patient appears to understand instructio ns, but if you have any further questions call or respond to this email Option to defer pap this year. Prefers to proceed with pap/hpv. Mammo ordered Dexa 2018; ordered for 2020 Colonoscop y 03/2020 Menopause approx 2017. Postmenopa usal osteopenia [id number] M85.80 Menopausal symptom 27731 002 N95.1 Trial of 50mg vs 40mg of current SSRI for hot flashes as she feels she is having some break through flushes lately over the last 6mos.RTO x 2mos med check Female uri nary stress incontinence [id number] N39.3 Offered trial of Pessary if interested & referral to Pelvic floor therapy.Wi ll let us know if wants to pursue this issue. Pain in pelvis [id number] R10.2 Having some random lower pelvic cramping.D ifficult to decipher if it is abd or clock smith related.So me right adnexal tenderness on exam but otherwise wnlWe agreed to update TVUS to ensure not clock smith related issue.if not, she will go see her PCP for further evaluation . [id number] Huber Abernathy MD [facility] [address] [address] 08/06/2021 17:00:53 08/06/2021 17:22:21 Pain in pelvis [id number] R10.2 [id number] [facility] [address] [address] 11/17/2021 15:39:11 11/17/2021 18:16:08 Menopausal symptom [id number] N95.1 Doing exceptiona lly well on Paroxetine 50mg daily.Has resolved all menopausal hot flushes and she feels it has positively enhanced her mood.Wishe s to contine. Neg suicidal ideations or thoughts of self harm.Will make appt for next WWE 07/2022. Time spent in visit is a total of 15 mins with at least 50% of visit consisting of counseling and review of plan of care.Addit ional precaution dieter measures were taken to minimize potential exposure to the Covid-19 virus during this patient s visit, including available hand foreman or supervisor and operator upon arrive, temperatur e check and being asked a series of screening questions. All staff wore face coverings during this encounter, as well as provided additional cleaning and sanitizing of all surfaces, including countertop s, pens, chairs, door handles, light switches, etc, prior to and following the patient s visit. [id number] Jessenia Vaughn [facility] [address] [address] 12/22/2021 14:37:40 12/23/2021 10:35:20 Mass of left breast [id number] N64.4 today we agreed to updated imaging based on findings during exam.Will await results to determine if further f/u or evaluation is required. Time spent in visit is a total of 15 mins with at least 50% of visit consisting of counseling and review of plan of care.Addit ional precaution dieter measures were taken to minimize potential exposure to the Covid-19 virus during this patient s visit, including available hand foreman or supervisor and operator upon arrive, temperatur e check and being asked a series of screening questions. All staff wore face coverings during this encounter, as well as provided additional cleaning and sanitizing of all surfaces, including countertop s, pens, chairs, door handles, light switches, etc, prior to and following the patient s visit. [id number] Jessenia Vaughn [facility] [address] [address] 08/10/2022 13:59:42 08/10/2022 14:44:00 Gynecologic examination [id number] Z01.419 Z11.51 Take Calcium with Vitamin D 12-1500mg daily. Do monthly self breast exams. It is advised to get annual flu shot in the fall and she could obtain at [facility] or [facility] clinic. If you haven't received the Tdap vaccine in the last 10 years you should obtain one as well. Have mammogram yearly, bone density every 2-3 years and colonoscop y every 5-10 years depending on findings and history. Engage in daily exercise of low impact aerobic exercise 45-60 minutes 4-5 times weekly. Avoid tobacco and illicit drugs as well as using moderation with alcohol intake less than 1-2 8 oz beverages daily. This lifestyle behavior pattern will lead to less health conditions and longer life span. If BMI greater than 25 weight watchers or dietary consult advised. Questions have been answered. Patient appears to understand instructio ns, but if you have any further questions call or respond to this email Pap/hpv sent STD Screen declined Genetic Screen discussed Colon Screen PCP Dexa Screen PCP Routine Labs PCP/Specia listMammo- -breast care managed by breast oncologist [id number] [facility] [address] [address] 08/16/2023 12:22:28 08/16/2023 12:48:30 Gynecologic examination [id number] Z01.419 Z11.51 Take Calcium with Vitamin D 12-1500mg daily. Do monthly self breast exams. It is advised to get annual flu shot in the fall and she could obtain at [facility] or [facility] care clinic. If you haven't received the Tdap vaccine in the last 10 years you should obtain one as well. Have mammogram yearly, bone density every 2-3 years and colonoscop y every 5-10 years depending on findings and history. Engage in daily exercise of low impact aerobic exercise 45-60 minutes 4-5 times weekly. Avoid tobacco and illicit drugs as well as using moderation with alcohol intake less than 1-2 8 oz beverages daily. This lifestyle behavior pattern will lead to less health conditions and longer life span. If BMI greater than 25 weight watchers or dietary consult advised. Questions have been answered. Patient appears to understand instructio ns, but if you have any further questions call or respond to this email Pap/hpv sentSTD Screen declinedGe netic Screen discussedC olon Screen PCPDexa Screen PCPRoutine Labs PCP/Specia listMammo- -breast care managed by breast oncologist [id number] Huber Abernathy MD [facility] [address],[place] [address] 09/03/2024 14:02:27 09/03/2024 15:04:39 Gynecologic examination [id number] Z01.419 Annual gynecologi dane exam performed. Patient will come back in [...] questions please call or email. mammogram- UTD (04/2024 WNL) - managed by breast oncologist colon cancer screening - UTD - PCP DEXA scan- UTD - PCP Pt to continue following up with urology regarding urinary sx r/t prolapse. Pap smear- UTD (08/16/23 - WNL), will repeat in 2025 per ASCCP guidelines . laboratory evaluation - PCP STI testing - Declined [id number] LENORA HATCH NP [facility] [address],[facility] [place] [address] 09/05/2025 13:57:20 09/05/2025 14:28:16 Well woman health examination [id number] Z01.419 [id number] Annual gynecologi dane exam performed. Patient will come back in [...] WNL) - managed by breast oncologist at [facility] colon cancer screening - UTD (2020)- PCP DEXA scan- UTD - PCP Pap smear- UTD (08/16/23 - WNL), will repeat in 2025 per ASCCP guidelines . laboratory evaluation - PCP STI testing - Declined Health Concerns Section Related Observation LastModified by Organization Saniya ls LastModified Time None Recorded Concern Status LastModified by Organization Details LastModified Time None Recorded Advance Directives Directive N: Payers Insurance Date Sequence Insurance Name Policy Number Policy Trevizo Covered Member ID Trevizo Member ID Guarantor Name 07/16/2021 1 [employer] Farrukh Sims [id number] 2 Yamileth Sims 09/04/2025 1 [employer] Yamileth Sims [id number] OI Yamileth Sims 11/02/2021 1 [employer] - [employer] PRIOR TO 21 - [facility] [employer] [id number] Farrukh Sims [id number] OI Yamileth Sims 09/09/2025 1 [employer] [id number] Yamileth Sims [id number] Yamileth Sims Notes Date Note Type Note Provider Name and Address Organization Details Recorded Time 2 text/html Breast MassReported by PatientHPIFor location, patient reportsleftandupper inner quadrant. For onset/timing, patient reports2-4 weeksandsudden. For quality, patient reportslocalized,firm,ten sujit, andfixed. For severity, patient reportsmild. For duration, patient reportsconstantandpersist ent. For context, patient reportsperforms breast self examination. For associated symptoms, patient reportsno fever,no skin redness,no nipple discharge,no breast swelling,no arm pain,no arm swelling, andno chest pain.ROS as noted in the HPI Jessenia Vaughn, [facility]- [address], [place], [address], [facility] 12/22/2021 23:04:31 2 text/html Annual Didactic Instructor Post-MenopausalReported by PatientGenitourinary symptomsFor menopausal symptoms, patient reportsno menopausal symptomsandnormal vaginal lubrication. For vaginal bleeding, patient reportshistory of menopause having occurredandno history of post menopausal bleeding. For urinary symptoms, patient reportsno hematuria,no incontinence,no nocturia, andno urinary frequency. For vulva, patient reportsno genital lesionandno vulvar atrophy. For vagina, patient reportsnormal vaginal dischargeandno vaginal atrophy.Breast symptomsFor breast, patient reportsno breast lump,no nipple discharge, andno breast pain.Psychological symptomsFor sexual complaints, patient reportsno sexual complaints. For psychological symptoms, patient reportsno depressionandno anxiety.Preventative measuresFor preventive measures, patient reportsencourage regular mammograms starting age 40,encourage self breast examination,encourage regular exercise,encourage no tobacco use,mammogram performed within the past year (seeing breast oncologist for chemo currently), andhistory of recent colonoscopy. Jessenia Vaughn [facility] [address], [place], [address], [facility] 08/10/2022 14:32:57 3 text/html Annual Didactic Instructor Post-MenopausalReported by PatientGenitourinary symptomsFor menopausal symptoms, patient reportsno menopausal symptomsandnormal vaginal lubrication. For vaginal bleeding, patient reportshistory of menopause having occurredandno history of post menopausal bleeding. For urinary symptoms, patient reportsno hematuria,no incontinence,no nocturia, andno urinary frequency. For vulva, patient reportsno genital lesionandno vulvar atrophy. For vagina, patient reportsnormal vaginal dischargeandno vaginal atrophy.Breast symptomsFor breast, patient reportsno breast lump,no nipple discharge, andno breast pain.Psychological symptomsFor sexual complaints, patient reportsno sexual complaints. For psychological symptoms, patient reportsno depressionandno anxiety.Preventative measuresFor preventive measures, patient reportsencourage regular mammograms starting age 40,encourage self breast examination,encourage regular exercise,encourage no tobacco use,mammogram performed within the past year, andhistory of recent colonoscopy. Jessenia Vaughn [facility] [address], [place], [address], [facility] 08/16/2023 12:48:07 4 text/html Annual GYNReported by PatientHistoryFor history, patient reportsno gynecologic complaints.Genitourinary symptomsFor urinary symptoms, patient reportsstress incontinence (managed by urologist)but reportsno hematuria. For vulva, patient reportsno genital lesion. For vagina, patient reportsnormal vaginal discharge. For menstrual cycle, (post menopausal).Breast symptomsFor breast, patient reportsno breast pain,no breast lump, andno nipple discharge.Endocrine symptomsFor sexual complaints, patient reportsno sexual complaints,no pain during intercourse, andnormal libido. For menopausal symptoms, patient reportsno menopausal symptomsandnormal vaginal lubrication.Psychological symptomsFor psychological symptoms, patient reportsno depression,no anxiety, andno pmdd.Preventative measuresFor preventive measures, patient reportsencourage self breast examination,encourage regular exercise,encourage no tobacco use,encourage regular mammograms starting age 40,mammogram performed within the past year, andup to date on colonoscopy screening. Patient presents for annual well woman exam. Patient denies concerns today. LENORA HATCH NP [address], [place], [address], [facility] 09/03/2024 14:58:21 5 text/html Annual Didactic Instructor Post-MenopausalReported by PatientGenitourinary symptomsFor menopausal symptoms, patient reportsno menopausal symptomsandnormal vaginal lubrication. For vaginal bleeding, patient reportshistory of menopause having occurredandno history of post menopausal bleeding. For urinary symptoms, patient reportsno hematuria,no incontinence,no nocturia, andno urinary frequency(oab/incontinenc e sx r/t uterine prolapse. patient states that sx are controlled [facility] For vulva, patient reportsno genital lesionandno [...] woman exam. Patient denies concerns today. LENORA HATCH NP [address], [place], [address], [facility] 09/05/2025 14:28:02 OBGyn Episode Ob Episode Information Episode Created Date Number of Fetuses Patient Bloodtype Patient rh Status Prepregnancy Weight lbs Domestic Partner Domestic Partner Phone Father Name Technology Analyst Status 07/14/20 20 1 CLOSED Fetus Data First Name Last Name Admitted to NICU Weight (g) Sex Living Outcome Pediatric Complications Fetus ID Race Codes Race Delivery Type 2749.67 4704 F Prematur e 4155 Vaginal Delivery Dagoberto Calculation Initial Dagoberto Date Initial Exam Date Initial Exam Provider Initial Ultrasound Date Last Menstrual Period Date Ultra Sound Weeks Gestation 0 Eighteen To Twenty Week Dagoberto Update Ultra Sound Date Fundal Height At Umbil Quickening Date Ultra Sound Latest Weeks Gestation Final Dagoberto Confirmed By Final Dagoberto Confirmed Date Final Dagoberto Date Ultra Sound Latest Days Gestation 0 0 Menstrual History Last Menstrual Date Menses Monthly On Bcp Conception Prior Menses Frequency Hcg Plus Date Menarche Onset Age Delivery Information Delivery Date Delivery Type Labor Anesthesia Weeks Gestation Incision Type Labor Labor Length Hrs Delivered By Post Complications Tubal Sterilization Discharge Date Comments 7 34 true Sirisha Discharge Information Feeding Method Contraceptive Method Maternal HG B and HCT Levels Ob Episode Information Episode Created Date Number of Fetuses Patient Bloodtype Patient rh Status Prepregnancy Weight lbs Domestic Partner Domestic Partner Phone Father Name Technology Analyst Status 07/14/20 20 1 CLOSED Fetus Data First Name Last Name Admitted to NICU Weight (g) Sex Living Outcome Pediatric Complications Fetus ID Race Codes Race Delivery Type 2381.35 8 M Prematur e 4156 Primary Dagoberto Calculation Initial Dagoberto Date Initial Exam Date Initial Exam Provider Initial Ultrasound Date Last Menstrual Period Date Ultra Sound Weeks Gestation 0 Eighteen To Twenty Week Dagoberto Update Ultra Sound Date Fundal Height At Umbil Quickening Date Ultra Sound Latest Weeks Gestation Final Dagoberto Confirmed By Final Dagoberto Confirmed Date Final Dagoberto Date Ultra Sound Latest Days Gestation 0 0 Menstrual History Last Menstrual Date Menses Monthly On Bcp Conception Prior Menses Frequency Hcg Plus Date Menarche Onset Age Delivery Information Delivery Date Delivery Type Labor Anesthesia Weeks Gestation Incision Type Labor Labor Length Hrs Delivered By Post Complications Tubal Sterilization Discharge Date Comments 4 33 true Yasir - - breech Discharge Information Feeding Method Contraceptive Method Maternal HG B and HCT Levels
[2025-10-11 12:16] VITALS: BP 92/55; PULSE 93; RESP 20; TEMP 36.1; O2SAT 93
--- NOTE | 2025-10-11 12:36 | ED.URI ---
HPI - URI/Sore Throat General Chief Complaint: Upper Respiratory Infection Stated Complaint: URI Symptoms Source: patient Mode of arrival: ambulatory Limitations: no limitations History of Present Illness HPI Narrative: this is a 65 y/o female patient that presents to the urgent care with one week history of cough, sore throat, and sinus pressure. patient has been using OTC medication with minimal relief. denies any other distress. MD elicited complaint: cough, sore throat, rhinorrhea, nasal congestion and sinus pain Onset (ago): week(s) (1) Consistency: constant Severity: mild Description of mucous: green Able to tolerate fluids by mouth: Yes Exacerbating factors: exertion Relieving factors: nothing Context: sick contacts Associated symptoms: denies other symptoms Treatments prior to arrival: acetaminophen and cold medicine Related Data Home Medications ?Medication ?Instructions ?Recorded ?Confirmed ?Last Taken ?Type gabapentin 300 mg capsule 300 mg PO BID 10/04/23 04/22/25 Unknown History vibegron 75 mg tablet (Gemtesa) 75 mg PO DAILY 10/04/23 04/22/25 Unknown History dicyclomine 20 mg tablet 20 mg PO QID PRN abdominal pain 04/10/24 04/22/25 Unknown History abemaciclib 150 mg tablet 150 mg PO BID 10/15/24 04/22/25 Unknown History (Verzenio) biotin 10,000 mcg capsule mcg PO 04/22/25 04/22/25 Unknown History calcium carbonate 600 mg PO BID 04/22/25 04/22/25 Unknown History multivitamin (Daily Multi-Vitamin 1 tablet PO DAILY 04/22/25 04/22/25 Unknown History tablet) vitamin B complex 1 tablet PO DAILY 04/22/25 04/22/25 Unknown History Allergies Allergy/AdvReac Type Severity Reaction Status Date / Time Penicillins Allergy Intermediate Hives Verified 10/11/25 12:09 adhesive tape AdvReac Mild RASH, Verified 10/11/25 12:09 ITCHING Review of Systems Review of Systems: All systems reviewed & are unremarkable except as noted in HPI and below PMFSH Past Medical History Medical History Breast cancer COVID-19 Cervicalgia Chronic low back pain Back pain associated with peripheral numbness Screening for colon cancer Screening for breast cancer Postmenopausal SVT (supraventricular tachycardia) 2010 History of tongue cancer Anxiety and depression Attention deficit hyperactivity disorder (ADHD), combined type Grade II diastolic dysfunction Mitral valve prolapse Other and unspecified hyperlipidemia Primary insomnia Surgical History Surgical History History of laparoscopic cholecystectomy 05/09/20 H/O rectal sphincterotomy Endometriosis determined by laparoscopy History of tonsillectomy H/O section S/P bunionectomy History of carpal tunnel release Family History Family History Mother Alzheimer disease Unknown Colon cancer Social History Social History Smoking status: Never smoker Second hand tobacco smoke exposure: No Alcohol intake: current Alcohol use details: a glass of wine every night with dinner Substance use: never Substance use type: does not use Lack of Transportation: No Lack of Food: Never True Current Housing: I Have Housing Concerned About Future Housing: No Difficulty Paying Gas/Electric Bills: No Difficulty Paying for Meds: No Currently Unemployed: No Education: Master's Degree or Higher Difficulty w/ Childcare or Family Care: No Living arrangements: with family Occupation/Education: occupation Gender identity (if verbalized by the patient): Female Sexual Orientation (if Verbalized by the Patient): Straight or Heterosexual Spiritual care concerns: No Agree to blood products: Yes Course Course Emergency Course: is a 65 y/o female patient that presents to the urgent care with one week history of cough, sore throat, and sinus pressure. patient has been using OTC medication with minimal relief. denies any other distress. after exam educated patient on treatment and with her medical history need for outpatient follow up. educated patient to continue with symptoms management. answered her questions to satisfaction. educated her to increase fluids, rest, Take antibiotic as prescribed, take prednisone as prescribed, continue with symptom relief with over the counter cough and cold medications, follow up with your primary MD in 3-4 days for further exam if no improvement next 48 hours, follow-up with the emergency department. patient denied any further needs or concerns to be addressed prior to discharge. Level of Care: Express Care Visit Vital Signs Vital signs: Vital Signs Temperature 97.0 F L 10/11/25 12:16 Pulse Rate 93 10/11/25 12:16 Respiratory Rate 20 11/28/25 12:16 Blood Pressure 92/55 L 10/11/25 12:16 Pulse Oximetry 93 10/11/25 12:16 Oxygen Delivery Room Air 10/11/25 12:16 Temperature 97.0 F L 10/11/25 12:16 Pulse Rate 93 10/11/25 12:16 Respiratory Rate 20 10/11/25 12:16 Blood Pressure 92/55 L 10/11/25 12:16 Pulse Oximetry 93 10/11/25 12:16 Oxygen Delivery Room Air 10/11/25 12:16 MDM - URI/Sore Throat MDM Narrative Medical decision making narrative: is a 65 y/o female patient that presents to the urgent care with one week history of cough, sore throat, and sinus pressure. patient has been using OTC medication with minimal relief. denies any other distress. after exam educated patient on treatment and with her medical history need for outpatient follow up. educated patient to continue with symptoms management. answered her questions to satisfaction. educated her to increase fluids, rest, Take antibiotic as prescribed, take prednisone as prescribed, continue with symptom relief with over the counter cough and cold medications, follow up with your primary MD in 3-4 days for further exam if no improvement next 48 hours, follow-up with the emergency department. patient denied any further needs or concerns to be addressed prior to discharge. Differential Diagnosis Differential diagnosis: Likely upper respiratory infection, sinusitis, bronchitis and pharyngitis Medical Records Attestation: I reviewed the patient's medical records. Discharge Plan Discharge Clinical Impression: Upper respiratory infection Qualifiers: URI type: unspecified URI Qualified Code(s): J06.9 - Acute upper respiratory infection, unspecified Patient Disposition: Home Condition: Stable Instructions: Antibiotic Form Additional Instructions: increase fluids rest Take antibiotic as prescribed take prednisone as prescribed continue with symptom relief with over the counter cough and cold medications follow up with your primary MD in 3-4 days for further exam if no improvement next 48 hours, follow-up with the emergency department. Patient Language: E[place]re[place] Prescriptions: New azithromycin [Zithromax Z-Slick] 250 mg tablet See Rx Instructions .ROUTE .COMPLEX Qty: 6 0RF Rx Instructions: For 250 mg dose pack: take 500 mg today (day 1), then 250 mg for 4 days (days 2-5) prednisone 20 mg tablet 20 mg PO BID Qty: 10 0RF No Action anastrozole 1 mg tablet 1 mg PO DAILY Qty: 1 0RF prochlorperazine maleate 10 mg tablet 10 mg PO Q8H PRN (Reason: nausea and vomiting) Qty: 1 0RF gabapentin 300 mg capsule 300 mg PO BID Rx Instructions: 300 mg in the morning. 600mg in the evening Gemtesa 75 mg tablet 75 mg PO DAILY multivitamin [Daily Multi-Vitamin] Tablet 1 tablet PO DAILY calcium carbonate 600 mg calcium (1,500 mg) tablet 600 mg PO BID vitamin B complex Tablet 1 tablet PO DAILY biotin 10,000 mcg capsule PO fluticasone propionate [Flonase Allergy Relief] 50 mcg/actuation spray,suspension 2 spray intranasal DAILY Qty: 16 2RF Rx Instructions: administer into each nostril trazodone 100 mg tablet 200 mg PO HS Qty: 180 1RF scopolamine base 1 mg over 3 days patch 3 day 1 patch transdermal Q3D PRN (Reason: motion sickness) Qty: 10 0RF dicyclomine 20 mg tablet 20 mg PO QID PRN (Reason: abdominal pain) Verzenio 150 mg tablet 150 mg PO BID ondansetron 4 mg tablet,disintegrating 4 mg PO Q8H PRN (Reason: nausea and vomiting) Qty: 7 0RF carvedilol phosphate 40 mg capsule, ER multiphase 24 hr See Rx Instructions .ROUTE .COMPLEX Qty: 90 1RF Dose Instruction: TAKE 1 CAPSULE BY MOUTH DAILY WITH FOOD Rx Instructions: TAKE 1 CAPSULE BY MOUTH DAILY WITH FOOD pravastatin 40 mg tablet See Rx Instructions .ROUTE .COMPLEX Qty: 90 0RF Dose Instruction: TAKE 1 TABLET BY MOUTH DAILY Rx Instructions: TAKE 1 TABLET BY MOUTH DAILY omeprazole 20 mg capsule,delayed release(DR/EC) See Rx Instructions .ROUTE .COMPLEX Qty: 90 0RF Dose Instruction: TAKE 1 CAPSULE BY MOUTH DAILY Rx Instructions: TAKE 1 CAPSULE BY MOUTH DAILY dextroamphetamine-amphetamine [Adderall] 15 mg tablet 15 mg PO BID Qty: 60 0RF Rx Instructions: administer doses at least 4-6 hours apart duloxetine 60 mg capsule,delayed release(DR/EC) See Rx Instructions .ROUTE .COMPLEX Qty: 90 0RF Dose Instruction: TAKE 1 CAPSULE BY MOUTH DAILY Rx Instructions: TAKE 1 CAPSULE BY MOUTH DAILY Follow-up/Referrals: Maria Elena Garcia APRN [Primary Care Provider, Internal Medicine] Time of Disposition: 12:40
== END 2025-10-11 12:42 | disposition home or self-care (01) ==
PROVIDERS: Emergency Provider Nurse Practitioner Family; PCP Nurse Practitioner Family
DX: J06.9 Acute upper respiratory infection, unspecified (principal); F90.9 Attention-deficit hyperactivity disorder, unspecified type; E78.49 Other hyperlipidemia; I34.1 Nonrheumatic mitral (valve) prolapse; F32.A Depression, unspecified; Z86.16 Personal history of COVID-19; Z85.3 Personal history of malignant neoplasm of breast; Z85.810 Personal history of malignant neoplasm of tongue
CPT/HCPCS: 99213; G0463

== ENCOUNTER 2025-10-16 14:26 | Inpatient (IN) | payer OTHER, SELFPAY ==
--- OUTSIDE RECORDS SUMMARY | 2016-07-06 23:00 | XMS_ITS | Encounter Summary ---
Author Organization [facility] Healthcare Address [address] [place] [address] Care Team Providers Care Executive Chairman Of The Board Name Role Phone Wei Swan MD Primary Care Provider [phone] Reason for Visit * Diagnostic Imaging (Routine) - Closed Specialty Diagnoses / Procedures Referred By Contac t Referred To Contact Procedures Breast Imaging Screening Outside Reference Aft, Ciara Dorsey MD PhD [address] [place] [address] Phone: tel: fax: Referral ID Status Reason Start Date Expiration Date Visits Re quested Visits Authorized [id number] Closed 01/26/2022 02/25/2023 1 1 Encounter Details Date Type Department Care Team (Late st Contact Info) Description 07/07/2016 Hospital Encounter [facility] [address], [place] [id number] Social History Tobacco Use Types Packs/Day Years [...] on file Legal Sex Female 2:50 AM COMPLIANCE SPEC Gender Identity Female 03/11/2022 12:06 PM CDT [...] Gait/Transferring 10 10/05/2022 12: 10 PM Joycelyn Zielger RN Mental Status 0 10/05/2022 12:10 PM [...] Barnett RN Nutrition 3 10/05/2022 12:10 PM COMPLIANCE SPEC Joycelyn Owen RN Friction and Shear 3 10/05/2022 12:10 PM Joycelyn Bender RN Aamir Scale Score 22 10/05/2022 12:10 PM Joycelyn Bender RN * Question Answer Date of Assessment Author BP Method Manual 03/03/2023 3:56 PM CDT Triinty Dorantes PTA * Question Answer Date of Assessment Author BP Location Left arm 09/18/2025 2:24 PM COMPLIANCE SPEC Johanny Begum CMA * Fall Risk Interventions [...] one occasion? Never 11/25/2022 9:34 AM Alisson Snu RN * Integumentary Question Answer Date of [...] BP Location Left arm 09/18/2025 2:24 PM COMPLIANCE SPEC Johanny Begum CMA * Question Answer Date [...] of Legs Both 09/20/2022 2:04 PM Cleo Ferguson, RN Weakness of Arms/Hands None 09/20/2022 2:04 [...] 05/01/2022 8:35 PM C Itzel Alfaro RN WEBBING INSPECTOR Evaluation Needed 2 05/01/2022 8:35 PM CDT Itzel Sun RN * Assistive Devices Question Answer Date of Assessment Author Assistive Devices/DME Cane;Eyeglasses;Co nt acts 09/20/2022 2:04 PM COMPLIANCE SPEC Cleo Solis RN documented as of this [...] only and have not been reviewed by [facility] Radiology. There will be no report generated by a [facility] Radiologist. Narrative [facility] - 01/26/2022 3:01 PM CDT EXAMINATION: Images For Reference Purposes Only us Ciara Martinez MD PhD IMG MAMMO PROCEDURES Final Result [facility] documented in this encounter Visit Diagnoses Not on filedocumented in this encounter Additional Health Concerns Infection Onset Date Last Indicated Resolved Time COVID: Suspected 05/01/2022 05/01/2022 05/01/2022 4:59 AM CDT documented as of this encounter Care Teams Executive Chairman Of The Board Relationship Specialty Start Date End Date Wei Swan MD PCP - General 02/22/13 01/13/22 documented as of this encounter
--- OUTSIDE RECORDS SUMMARY | 2016-07-06 23:00 | XMS_ITS | Encounter Summary ---
Author Organization [facility] Healthcare Address [address] [place] [address] Care Team Providers Care Web Content Producer Name Role Phone Wei Swan MD Primary Care Provider [phone] Reason for Visit * Diagnostic Imaging (Routine) - Closed Specialty Diagnoses / Procedures Referred By Contac t Referred To Contact Procedures Breast Imaging Screening Outside Reference Aft, Ciara Dorsey MD PhD [address] [place] [address] Phone: tel: fax: Referral ID Status Reason Start Date Expiration Date Visits Re quested Visits Authorized [id number] Closed 01/26/2022 02/25/2023 1 1 Encounter Details Date Type Department Care Team (Late st Contact Info) Description 07/07/2016 Hospital Encounter [facility] [address] [place], [place] [id number] Social History Tobacco Use Types Packs/Day Years [...] on file Legal Sex Female 2:50 AM LACE WEAVER Gender Identity Female 03/11/2022 12:06 PM CDT [...] Secondary Diagnosis 15 10/05/2022 1 2:10 PM Joyeclyn Ziegler RN Ambulatory Aids 0 10/05/2022 12:10 [...] Barnett RN Nutrition 3 10/05/2022 12:10 PM LACE WEAVER Joycelyn Owen RN Friction and Shear 3 10/05/2022 12:10 PM Joycelyn Bender RN Aamir Scale Score 22 10/05/2022 12:10 PM Joycelyn Bender RN * Question Answer Date of Assessment Author BP Method Manual 03/03/2023 3:56 PM CDT Trinity Doranets PTA * Question Answer Date of Assessment Author BP Location Left arm 09/18/2025 2:24 PM LACE WEAVER Johanny Begum CMA * Fall Risk Interventions [...] BP Location Left arm 09/18/2025 2:24 PM LACE WEAVER Johanny Begum CMA * Question Answer Date [...] 05/01/2022 8:35 PM C Itzel Alfaro RN ETHICS OFFICER Evaluation Needed 2 05/01/2022 8:35 PM CDT Itzel Sun RN * Assistive Devices Question Answer Date of Assessment Author Assistive Devices/DME Cane;Eyeglasses;Co nt acts 09/20/2022 2:04 PM LACE WEAVER Cleo Solis RN documented as of this [...] only and have not been reviewed by [facility] Radiology. There will be no report generated by a [facility] Radiologist. Narrative [facility] - 01/26/2022 3:01 PM CDT EXAMINATION: Images For Reference Purposes Only us Ciara Martinez MD PhD IMG MAMMO PROCEDURES Final Result [facility] documented in this encounter Visit Diagnoses Not on filedocumented in this encounter Additional Health Concerns Infection Onset Date Last Indicated Resolved Time COVID: Suspected 05/01/2022 05/01/2022 05/01/2022 4:59 AM CDT documented as of this encounter Care Teams Web Content Producer Relationship Specialty Start Date End Date Wei Swan MD PCP - General 02/22/13 01/13/22 documented as of this encounter
--- OUTSIDE RECORDS SUMMARY | 2017-07-10 23:00 | XMS_ITS | Encounter Summary ---
Author Organization [facility] Healthcare Address [address] [place] [address] Care Team Providers Care Smoke Control Supervisor Name Role Phone Wei Swan MD Primary Care Provider [phone] Reason for Visit * Diagnostic Imaging (Routine) - Closed Specialty Diagnoses / Procedures Referred By Contac t Referred To Contact Procedures Breast Imaging Screening Outside Reference Aft, Ciara Dorsey MD PhD [address] [place] [address] Phone: tel: fax: Referral ID Status Reason Start Date Expiration Date Visits Re quested Visits Authorized [id number] Closed 01/26/2022 02/25/2023 1 1 Encounter Details Date Type Department Care Team (Late st Contact Info) Description 07/11/2017 Hospital Encounter [facility] [address] [place], [place] [phone] Social History Tobacco Use Types Packs/Day Years [...] on file Legal Sex Female 2:50 AM CREAMERY WORKER Gender Identity Female 03/11/2022 12:06 PM CDT [...] Barnett RN Nutrition 3 10/05/2022 12:10 PM CREAMERY WORKER Joycelyn Owen RN Friction and Shear 3 10/05/2022 12:10 PM Joycelyn Bender RN Aamir Scale Score 22 10/05/2022 12:10 PM Joycelyn Bender RN * Question Answer Date of Assessment Author BP Method Manual 03/03/2023 3:56 PM CDT Trinity Dorantes PTA * Question Answer Date of Assessment Author BP Location Left arm 09/18/2025 2:24 PM CREAMERY WORKER Johanny Begum CMA * Fall Risk Interventions [...] BP Location Left arm 09/18/2025 2:24 PM CREAMERY WORKER Johanny Begum CMA * Question Answer Date [...] 05/01/2022 8:35 PM C Itzel Alfaro RN PIT HOIST OPERATOR Evaluation Needed 2 05/01/2022 8:35 PM CDT Itzel Sun RN * Assistive Devices Question Answer Date of Assessment Author Assistive Devices/DME Cane;Eyeglasses;Co nt acts 09/20/2022 2:04 PM CREAMERY WORKER Cleo Solis RN documented as of this [...] BREAST IMAGING MG SCREENING OUTSIDE REFERENCE Routine 07/11/2017 12:00 AM CDT documented in this encounter Results * Breast Imaging Screening Outside Reference (07/11/2017 12:00 AM CDT) Impressions [facility] - 01/26/2022 2:58 PM CDT These images are for Reference purposes only and have not been reviewed by [facility] Radiology. There will be no report generated by a [facility] Radiologist. Narrative RAD[facility] - 01/26/2022 2:58 PM CDT EXAMINATION: Images For Reference Purposes Only us Ciara Martinez MD PhD IMG MAMMO PROCEDURES Final Result [facility] documented in this encounter Visit Diagnoses Not on filedocumented in this encounter Additional Health Concerns Infection Onset Date Last Indicated Resolved Time COVID: Suspected 05/01/2022 05/01/2022 05/01/2022 4:59 AM CDT documented as of this encounter Care Teams Smoke Control Supervisor Relationship Specialty Start Date End Date Wei Swan MD PCP - General 02/22/13 01/13/22 documented as of this encounter
--- OUTSIDE RECORDS SUMMARY | 2017-07-10 23:00 | XMS_ITS | Encounter Summary ---
Author Organization [facility] Healthcare Address [address] [place] [address] Care Team Providers Care Resource Room Special Education Teacher Name Role Phone Wei Swan MD Primary Care Provider [phone] Reason for Visit * Diagnostic Imaging (Routine) - Closed Specialty Diagnoses / Procedures Referred By Contac t Referred To Contact Procedures Breast Imaging Screening Outside Reference Aft, Ciara Dorsey MD PhD [address] [place] [address] Phone: tel: fax: Referral ID Status Reason Start Date Expiration Date Visits Re quested Visits Authorized [id number] Closed 01/26/2022 02/25/2023 1 1 Encounter Details Date Type Department Care Team (Late st Contact Info) Description 07/11/2017 Hospital Encounter [facility] [address] [place], [place] [phone] Social History Tobacco Use Types Packs/Day Years [...] on file Legal Sex Female 2:50 AM SHOWPLACE MANAGER Gender Identity Female 03/11/2022 12:06 PM CDT [...] Barnett RN Nutrition 3 10/05/2022 12:10 PM SHOWPLACE MANAGER Joycelyn Owen RN Friction and Shear 3 10/05/2022 12:10 PM Joycelyn Bender RN Aamir Scale Score 22 10/05/2022 12:10 PM Joycelyn Bender RN * Question Answer Date of Assessment Author BP Method Manual 03/03/2023 3:56 PM CDT Trinity Dorantes PTA * Question Answer Date of Assessment Author BP Location Left arm 09/18/2025 2:24 PM SHOWPLACE MANAGER Johanny Begum CMA * Fall Risk Interventions [...] BP Location Left arm 09/18/2025 2:24 PM SHOWPLACE MANAGER Johanny Begum CMA * Question Answer Date [...] 05/01/2022 8:35 PM C Itzel Alfaro RN SUSTAINABLE AGRICULTURE SPECIALIST Evaluation Needed 2 05/01/2022 8:35 PM CDT Itzel Sun RN * Assistive Devices Question Answer Date of Assessment Author Assistive Devices/DME Cane;Eyeglasses;Co nt acts 09/20/2022 2:04 PM SHOWPLACE MANAGER Cleo Solis RN documented as of this [...] only and have not been reviewed by [facility] Radiology. There will be no report generated by a [facility] Radiologist. Narrative RAD_MAMMO[facility] - 01/26/2022 2:58 PM CDT EXAMINATION: Images For Reference Purposes Only us Ciara Martinez MD PhD IMG MAMMO PROCEDURES Final Result [facility]MO[facility] documented in this encounter Visit Diagnoses Not on filedocumented in this encounter Additional Health Concerns Infection Onset Date Last Indicated Resolved Time COVID: Suspected 05/01/2022 05/01/2022 05/01/2022 4:59 AM CDT documented as of this encounter Care Teams Resource Room Special Education Teacher Relationship Specialty Start Date End Date Wei Swan MD PCP - General 02/22/13 01/13/22 documented as of this encounter
--- OUTSIDE RECORDS SUMMARY | 2017-07-24 23:00 | XMS_ITS | Encounter Summary ---
Author Organization [facility] Healthcare Address [address] [place] [address] Care Team Providers Care Supervisor Hanging And Trimming Name Role Phone Wei Swan MD Primary Care Provider [phone] Reason for Visit * Diagnostic Imaging (Routine) - Closed Specialty Diagnoses / Procedures Referred By Contac t Referred To Contact Procedures Breast Imaging Diagnostic Outside Reference Aft, Ciara Dorsey MD PhD [address] [place] [address] Phone: tel: fax: Referral ID Status Reason Start Date Expiration Date Visits Re quested Visits Authorized [id number] Closed 01/26/2022 02/25/2023 1 1 Encounter Details Date Type Department Care Team (Late st Contact Info) Description 07/25/2017 Hospital Encounter [facility] Radiology [facility] [address] [place], [place] [phone] Social History Tobacco Use Types Packs/Day Years [...] on file Legal Sex Female 2:50 AM EXTERNAL GRINDER TENDER Gender Identity Female 03/11/2022 12:06 PM CDT [...] Barnett RN Nutrition 3 10/05/2022 12:10 PM EXTERNAL GRINDER TENDER Joycelyn Owen RN Friction and Shear 3 10/05/2022 12:10 PM Joycelyn Bender RN Aamir Scale Score 22 10/05/2022 12:10 PM Joycelyn Bender RN * Question Answer Date of Assessment Author BP Method Manual 03/03/2023 3:56 PM CDT Trinity Dorantes PTA * Question Answer Date of Assessment Author BP Location Left arm 09/18/2025 2:24 PM EXTERNAL GRINDER TENDER Johanny Begum CMA * Fall Risk Interventions [...] the BMAT? Yes 05/02/2022 7:00 PM BETHT Tiigst Sun RN BMAT Level Level 4 - [...] drinking? 1 or 2 11/25/2022 9:34 AM Alisson Sun RN Q3: How often do you [...] Eaten (%) 50 05/03/2022 12:55 P M Fannie Arriaza RN * Question Answer Date of Assessment Author BP Method Manual 03/03/2023 3:56 PM CDT Trinity Dorantes PTA * Question Answer Date of Assessment Author BP Location Left arm 09/18/2025 2:24 PM EXTERNAL GRINDER TENDER Johanny Begum CMA * Question Answer Date [...] Complete Daily Activities Yes 05/01/2022 8:35 PM BETHT Gail Sun RN Patient's Memory Adequate to Safely Complete Daily Activities Yes 05/01/2022 8:35 PM Itzel Washington RN Patient Able to Express Needs/Desires Yes 05/01/2022 8:35 PM Itzel [place] RN Dressing Independent 05/01/2022 8:35 PM Itzel [place] RN Grooming Independent 05/01/2022 8:35 PM Itzel [place] RN Feeding Independent 05/01/2022 8:35 PM Itzel [place] RN Bathing Independent 05/01/2022 8:35 PM Itzel [place] RN Toileting Independent 05/01/2022 8:35 PM Itzel [place] RN In/Out Bed Independent 05/01/2022 8:35 PM Itzel [place] RN Walks in Home Independent 05/01/2022 8:35 PM Itzel Figueroa RN Weakness of Legs Both 09/20/2022 2:04 PM Cleo Aguillon, RN Weakness of Arms/Hands None 09/20/2022 2:04 PM Cleo Aguillon RN Hearing - Right Ear Functional 09/20/2022 2:04 PM Cleo Hurley RN Hearing - Left Ear Functional 09/20/2022 2:04 PM Cleo Aguillon RN Dominant hand? Right 05/01/2022 8:35 PM Itzel Vila RN Decline in ADLs in last 2 weeks? No 05/01/2022 8:35 PM Itzel Washington RN * Therapy Consults Question Answer Date of Assessment Author PT Evaluation Needed 2 05/01/2022 8:35 PM C Itzel Alfaro RN OT Evaluation Needed 2 05/01/2022 8:35 PM C Itzel Alfaro RN SENIOR ORACLE DBA Evaluation Needed 2 05/01/2022 8:35 PM CDT Itzel Sun RN * Assistive Devices Question Answer Date of Assessment Author Assistive Devices/DME Cane;Eyeglasses;Co nt acts 09/20/2022 2:04 PM EXTERNAL GRINDER TENDER Cleo Solis RN documented as of this [...] Date/Time Associated Diagnosis Comments BREAST IMAGING MG DIAGNOSTIC OUTSIDE REFERENCE Routine 07/25/2017 12:00 AM CDT documented in this encounter Results * Breast Imaging Diagnostic Outside Reference (07/25/2017 12:00 AM CDT) Impressions RAD_MAMMO[facility] - 01/26/2022 2:59 PM CDT These images are for Reference purposes only and have not been reviewed by [facility] Radiology. There will be no report generated by a [facility] Radiologist. Narrative RAD_MAMMO[facility] - 01/26/2022 2:59 PM CDT EXAMINATION: Images For Reference Purposes Only us Ciara Martinez MD PhD IMG MAMMO PROCEDURES Final Result [facility]MO[facility] documented in this encounter Visit Diagnoses Not on filedocumented in this encounter Additional Health Concerns Infection Onset Date Last Indicated Resolved Time COVID: Suspected 05/01/2022 05/01/2022 05/01/2022 4:59 AM CDT documented as of this encounter Care Teams Supervisor Hanging And Trimming Relationship Specialty Start Date End Date Wei Swan MD PCP - General 02/22/13 01/13/22 documented as of this encounter
--- OUTSIDE RECORDS SUMMARY | 2017-07-24 23:00 | XMS_ITS | Encounter Summary ---
Author Organization [facility] Healthcare Address [address] [place] [address] Care Team Providers Care Parcel Contractor Name Role Phone Wei Swan MD Primary Care Provider [phone] Reason for Visit * Diagnostic Imaging (Routine) - Closed Specialty Diagnoses / Procedures Referred By Contac t Referred To Contact Procedures Breast Imaging Diagnostic Outside Reference Aft, Ciara Dorsey MD PhD [address] [place] [address] Phone: tel: fax: Referral ID Status Reason Start Date Expiration Date Visits Re quested Visits Authorized [id number] Closed 01/26/2022 02/25/2023 1 1 Encounter Details Date Type Department Care Team (Late st Contact Info) Description 07/25/2017 Hospital Encounter [facility] Radiology [facility] [address] [place], [place] [phone] Social History Tobacco Use Types Packs/Day Years [...] on file Legal Sex Female 2:50 AM CHANGE OVER Gender Identity Female 03/11/2022 12:06 PM CDT [...] Barnett RN Nutrition 3 10/05/2022 12:10 PM CHANGE OVER Joycelyn Owen RN Friction and Shear 3 10/05/2022 12:10 PM Joycelyn Bender RN Aamir Scale Score 22 10/05/2022 12:10 PM Joycelyn Bender RN * Question Answer Date of Assessment Author BP Method Manual 03/03/2023 3:56 PM CDT Trinity Dorantes PTA * Question Answer Date of Assessment Author BP Location Left arm 09/18/2025 2:24 PM CHANGE OVER Johanny Begum CMA * Fall Risk Interventions [...] BP Location Left arm 09/18/2025 2:24 PM CHANGE OVER Johanny Begum CMA * Question Answer Date [...] 05/01/2022 8:35 PM C Itzel Alfaro RN WOODEN FURNITURE POLISHER Evaluation Needed 2 05/01/2022 8:35 PM CDT Itzel Sun RN * Assistive Devices Question Answer Date of Assessment Author Assistive Devices/DME Cane;Eyeglasses;Co nt acts 09/20/2022 2:04 PM CHANGE OVER Cleo Solis RN documented as of this [...] only and have not been reviewed by [facility] Radiology. There will be no report generated by a [facility] Radiologist. Narrative RAD_MAMMO_[facility] - 01/26/2022 2:59 PM CDT EXAMINATION: Images For Reference Purposes Only us Ciara Martinez MD PhD IMG MAMMO PROCEDURES Final Result RAD[facility]MO[facility] documented in this encounter Visit Diagnoses Not on filedocumented in this encounter Additional Health Concerns Infection Onset Date Last Indicated Resolved Time COVID: Suspected 05/01/2022 05/01/2022 05/01/2022 4:59 AM CDT documented as of this encounter Care Teams Parcel Contractor Relationship Specialty Start Date End Date Wei Swan MD PCP - General 02/22/13 01/13/22 documented as of this encounter
--- OUTSIDE RECORDS SUMMARY | 2017-07-24 23:05 | XMS_ITS | Encounter Summary ---
Author Organization [facility] Healthcare Address [address] [place] [address] Care Team Providers Care Retread Technician Name Role Phone Wei Swan MD Primary Care Provider [phone] Reason for Visit * Diagnostic Imaging (Routine) - Closed Specialty Diagnoses / Procedures Referred By Contac t Referred To Contact Procedures Breast Imaging US Outside Reference Aft, Ciara Dorsey MD PhD [address] [place] [address] Phone: tel: fax: Referral ID Status Reason Start Date Expiration Date Visits Re quested Visits Authorized [id number] Closed 01/26/2022 02/25/2023 1 1 Encounter Details Date Type Department Care Team (Late st Contact Info) Description 07/25/2017 12:05 AM CDT Hospital Encounter [facility]iology [facility] [address] [place] [phone] Social History Tobacco Use Types Packs/Day Years [...] on file Legal Sex Female 2:50 AM PULP PILER Gender Identity Female 03/11/2022 12:06 PM CDT [...] Falling 0 10/05/2022 12 :10 PM Joycelyn Ziegelr RN Secondary Diagnosis 15 10/05/2022 1 2:10 [...] Barnett RN Nutrition 3 10/05/2022 12:10 PM PULP PILER Joycelyn Owen RN Friction and Shear 3 10/05/2022 12:10 PM Joycelyn Bender RN Aamir Scale Score 22 10/05/2022 12:10 PM Joycelyn Bender RN * Question Answer Date of Assessment Author BP Method Manual 03/03/2023 3:56 PM CDT Trinity Dorantes PTA * Question Answer Date of Assessment Author BP Location Left arm 09/18/2025 2:24 PM PULP PILER Johanny Begum CMA * Fall Risk Interventions [...] BP Location Left arm 09/18/2025 2:24 PM PULP PILER Johanny Begum CMA * Question Answer Date [...] 05/01/2022 8:35 PM C Itzel Alfaro RN GEODETIC ADVISOR Evaluation Needed 2 05/01/2022 8:35 PM CDT Itzel Sun RN * Assistive Devices Question Answer Date of Assessment Author Assistive Devices/DME Cane;Eyeglasses;Co nt acts 09/20/2022 2:04 PM PULP PILER Cleo Solis RN documented as of this [...] only and have not been reviewed by [facility] Radiology. There will be no report generated by a [facility] Radiologist. Narrative RAD_MAMMO_[facility] - 01/26/2022 2:59 PM CDT EXAMINATION: Images For Reference Purposes Only us Ciara Martinez MD PhD IMG MAMMO PROCEDURES Final Result [facility]_M[facility] documented in this encounter Visit Diagnoses Not on filedocumented in this encounter Additional Health Concerns Infection Onset Date Last Indicated Resolved Time COVID: Suspected 05/01/2022 05/01/2022 05/01/2022 4:59 AM CDT documented as of this encounter Care Teams Retread Technician Relationship Specialty Start Date End Date Wei Swan MD PCP - General 02/22/13 01/13/22 documented as of this encounter
--- OUTSIDE RECORDS SUMMARY | 2017-07-24 23:05 | XMS_ITS | Encounter Summary ---
Author Organization [facility] Healthcare Address [address] [place] [address] Care Team Providers Care Mirror Silverer Name Role Phone Wei Swan MD Primary Care Provider [phone] Reason for Visit * Diagnostic Imaging (Routine) - Closed Specialty Diagnoses / Procedures Referred By Contac t Referred To Contact Procedures Breast Imaging US Outside Reference Aft, Ciara Dorsey MD PhD [address] [place] [address] Phone: tel: fax: Referral ID Status Reason Start Date Expiration Date Visits Re quested Visits Authorized [id number] Closed 01/26/2022 02/25/2023 1 1 Encounter Details Date Type Department Care Team (Late st Contact Info) Description 07/25/2017 12:05 AM CDT Hospital Encounter [facility] [address] [place] [id number] Social History Tobacco Use Types Packs/Day Years [...] on file Legal Sex Female 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 CUP MOLD CUTTER Gender Identity Female 03/11/2022 12:06 PM CDT [...] Barnett RN Nutrition 3 10/05/2022 12:10 PM BRASSIERE CUP MOLD CUTTER Joycelyn Owen RN Friction and Shear 3 10/05/2022 12:10 PM Joycelyn Bender RN Aamir Scale Score 22 10/05/2022 12:10 PM Joycelyn Bender RN * Question Answer Date of Assessment Author BP Method Manual 03/03/2023 3:56 PM CDT Trinity Dorantes PTA * Question Answer Date of Assessment Author BP Location Left arm 09/18/2025 2:24 PM BRASSIERE CUP MOLD CUTTER Johanny Begum CMA * Fall Risk Interventions [...] BP Location Left arm 09/18/2025 2:24 PM BRASSIERE CUP MOLD CUTTER Johanny Begum CMA * Question Answer Date [...] 05/01/2022 8:35 PM C Itzel Alfaro RN CONTAINER FINISHER Evaluation Needed 2 05/01/2022 8:35 PM CDT Itzel Sun RN * Assistive Devices Question Answer Date of Assessment Author Assistive Devices/DME Cane;Eyeglasses;Co nt acts 09/20/2022 2:04 PM BRASSIERE CUP MOLD CUTTER Cleo Solis RN documented as of this [...] only and have not been reviewed by [facility] Radiology. There will be no report generated by a [facility] Radiologist. Narrative [facility] - 01/26/2022 2:59 PM CDT EXAMINATION: Images For Reference Purposes Only us Ciara Martinez MD PhD IMG MAMMO PROCEDURES Final Result [facility] documented in this encounter Visit Diagnoses Not on filedocumented in this encounter Additional Health Concerns Infection Onset Date Last Indicated Resolved Time COVID: Suspected 05/01/2022 05/01/2022 05/01/2022 4:59 AM CDT documented as of this encounter Care Teams Mirror Silverer Relationship Specialty Start Date End Date Wei Swan MD PCP - General 02/22/13 01/13/22 documented as of this encounter
--- OUTSIDE RECORDS SUMMARY | 2018-07-13 23:00 | XMS_ITS | Encounter Summary ---
Author Organization [facility] Healthcare Address [address] [place] [address] Care Team Providers Care Assistant Scientist Name Role Phone Wei Swan MD Primary Care Provider [phone] Reason for Visit * Diagnostic Imaging (Routine) - Closed Specialty Diagnoses / Procedures Referred By Contac t Referred To Contact Procedures Breast Imaging Screening Outside Reference Aft, Ciara Dorsey MD PhD [address] [place] [address] Phone: tel: fax: Referral ID Status Reason Start Date Expiration Date Visits Re quested Visits Authorized [id number] Closed 01/26/2022 02/25/2023 1 1 Encounter Details Date Type Department Care Team (Late st Contact Info) Description 07/14/2018 Hospital Encounter [facility] Radiology [facility] [address] [place], [place] [phone] Social History Tobacco Use Types Packs/Day Years [...] on file Legal Sex Female 2:50 AM MAGAZINE FEEDER Gender Identity Female 03/11/2022 12:06 PM CDT [...] Gait/Transferring 10 10/05/2022 12: 10 PM Joycelyn Ziegelr RN Mental Status 0 10/05/2022 12:10 PM [...] Barnett RN Nutrition 3 10/05/2022 12:10 PM MAGAZINE FEEDER Joycelyn Owen RN Friction and Shear 3 10/05/2022 12:10 PM Joycelyn Bender RN Aamir Scale Score 22 10/05/2022 12:10 PM Joycelyn Bender RN * Question Answer Date of Assessment Author BP Method Manual 03/03/2023 3:56 PM CDT Trinity Dorantes PTA * Question Answer Date of Assessment Author BP Location Left arm 09/18/2025 2:24 PM MAGAZINE FEEDER Johanny Begum CMA * Fall Risk Interventions [...] BP Location Left arm 09/18/2025 2:24 PM MAGAZINE FEEDER Johanny Begum CMA * Question Answer Date [...] 05/01/2022 8:35 PM C Itzel Alfaro RN BOX COVERER HAND Evaluation Needed 2 05/01/2022 8:35 PM CDT Itzel Sun RN * Assistive Devices Question Answer Date of Assessment Author Assistive Devices/DME Cane;Eyeglasses;Co nt acts 09/20/2022 2:04 PM MAGAZINE FEEDER Cleo Solis RN documented as of this [...] BREAST IMAGING MG SCREENING OUTSIDE REFERENCE Routine 07/14/2018 12:00 AM CDT documented in this encounter Results * Breast Imaging Screening Outside Reference (07/14/2018 12:00 AM CDT) Impressions [facility] - 01/26/2022 2:57 PM CDT These images are for Reference purposes only and have not been reviewed by [facility] Radiology. There will be no report generated by a [facility] Radiologist. Narrative [facility] - 01/26/2022 2:57 PM CDT EXAMINATION: Images For Reference Purposes Only us Ciara Martinez MD PhD IMG MAMMO PROCEDURES Final Result [facility] documented in this encounter Visit Diagnoses Not on filedocumented in this encounter Additional Health Concerns Infection Onset Date Last Indicated Resolved Time COVID: Suspected 05/01/2022 05/01/2022 05/01/2022 4:59 AM CDT documented as of this encounter Care Teams Assistant Scientist Relationship Specialty Start Date End Date Wei Swan MD PCP - General 02/22/13 01/13/22 documented as of this encounter
--- OUTSIDE RECORDS SUMMARY | 2018-07-13 23:00 | XMS_ITS | Encounter Summary ---
Author Organization [facility] Healthcare Address [address] [place] [address] Care Team Providers Care Information Systems Audit Manager Name Role Phone Wei Swan MD Primary Care Provider [phone] Reason for Visit * Diagnostic Imaging (Routine) - Closed Specialty Diagnoses / Procedures Referred By Contac t Referred To Contact Procedures Breast Imaging Screening Outside Reference Aft, Ciara Dorsey MD PhD [address] [place] [address] Phone: tel: fax: Referral ID Status Reason Start Date Expiration Date Visits Re quested Visits Authorized [id number] Closed 01/26/2022 02/25/2023 1 1 Encounter Details Date Type Department Care Team (Late st Contact Info) Description 07/14/[address] [facility] Radiology [facility] [address] [place], [place] [phone] Social History Tobacco Use Types Packs/Day Years [...] on file Legal Sex Female 2:50 AM CHILD CARE TEACHER Gender Identity Female 03/11/2022 12:06 PM CDT [...] Barnett RN Nutrition 3 10/05/2022 12:10 PM CHILD CARE TEACHER Joycelyn Owen RN Friction and Shear 3 10/05/2022 12:10 PM Joycelyn Bender RN Aamir Scale Score 22 10/05/2022 12:10 PM Joycelyn Bender RN * Question Answer Date of Assessment Author BP Method Manual 03/03/2023 3:56 PM CDT Trinity Dorantes PTA * Question Answer Date of Assessment Author BP Location Left arm 09/18/2025 2:24 PM CHILD CARE TEACHER Johanny Begum CMA * Fall Risk Interventions [...] BP Location Left arm 09/18/2025 2:24 PM CHILD CARE TEACHER Johanny Begum CMA * Question Answer Date [...] 05/01/2022 8:35 PM C Itzel Alfaro RN DISPLAY FABRICATION SUPERVISOR Evaluation Needed 2 05/01/2022 8:35 PM CDT Itzel Sun RN * Assistive Devices Question Answer Date of Assessment Author Assistive Devices/DME Cane;Eyeglasses;Co nt acts 09/20/2022 2:04 PM CHILD CARE TEACHER Cleo Solis RN documented as of this [...] and have not been reviewed by [facility] Radiology. There will be no report generated by a [facility] Radiologist. Narrative [facility] - 01/26/2022 2:57 PM CDT EXAMINATION: Images For Reference Purposes Only us Ciara Martinez MD PhD IMG MAMMO PROCEDURES Final Result [facility] documented in this encounter Visit Diagnoses Not on filedocumented in this encounter Additional Health Concerns Infection Onset Date Last Indicated Resolved Time COVID: Suspected 05/01/2022 05/01/2022 05/01/2022 4:59 AM CDT documented as of this encounter Care Teams Information Systems Audit Manager Relationship Specialty Start Date End Date Wei Swan MD PCP - General 02/22/13 01/13/22 documented as of this encounter
--- OUTSIDE RECORDS SUMMARY | 2019-07-16 23:00 | XMS_ITS | Encounter Summary ---
Author Organization [facility] Healthcare Address [address] [place] [address] Care Team Providers Care Machine Buffer Name Role Phone Wei Swan MD Primary Care Provider [phone] Reason for Visit * Diagnostic Imaging (Routine) - Closed Specialty Diagnoses / Procedures Referred By Contac t Referred To Contact Procedures Breast Imaging Screening Outside Reference Aft, Ciara Dorsey MD PhD [address] [place] [address] Phone: tel: fax: Referral ID Status Reason Start Date Expiration Date Visits Re quested Visits Authorized [id number] Closed 01/26/2022 02/25/2023 1 1 Encounter Details Date Type Department Care Team (Late st Contact Info) Description 07/17/2019 Hospital Encounter [facility]iology [facility] [address] [place], [place] [phone] Social History Tobacco Use Types Packs/Day Years [...] on file Legal Sex Female 2:50 AM PROMOTION MANAGER Gender Identity Female 03/11/2022 12:06 PM [...] improve mood 1 11/25/2022 9:29 AM Alisson uSn RN Needs to push with hands whe [...] Barnett RN Nutrition 3 10/05/2022 12:10 PM PROMOTION MANAGER Joycelyn Owen RN Friction and Shear 3 10/05/2022 12:10 PM Joycelyn Bender RN Aamir Scale Score 22 10/05/2022 12:10 PM Joycelyn Bender RN * Question Answer Date of Assessment Author BP Method Manual 03/03/2023 3:56 PM CDT Trinity Dorantes PTA * Question Answer Date of Assessment Author BP Location Left arm 09/18/2025 2:24 PM PROMOTION MANAGER Johanny Begum CMA * Fall Risk Interventions Question Answer Date of Assessment Author All Low Fall Interventions Applied Yes 10/05/2022 12:10 PM Joycelyn Ziegler RN All Moderate Fall Interventions Applied No 10/05/2022 12:10 PM Joycelyn iZegler RN All Moderate Fall Risk Interventions EXCEPT: [...] BP Location Left arm 09/18/2025 2:24 PM PROMOTION MANAGER Johanny Begum CMA * Question Answer [...] 05/01/2022 8:35 PM C Itzel Alfaro RN HYDROELECTRIC PRODUCTION TECHNICIAN Evaluation Needed 2 05/01/2022 8:35 PM CDT Itzel Sun RN * Assistive Devices Question Answer Date of Assessment Author Assistive Devices/DME Cane;Eyeglasses;Co nt acts 09/20/2022 2:04 PM PROMOTION MANAGER Cleo Solis RN documented as of [...] only and have not been reviewed by [facility] Radiology. There will be no report generated by a [facility] Radiologist. Narrative RAD_M[facility]MO[facility] - 01/26/2022 2:57 PM CDT EXAMINATION: Images For Reference Purposes Only us Ciara Martinez MD PhD IMG MAMMO PROCEDURES Final Result [facility] documented in this encounter Visit Diagnoses Not on filedocumented in this encounter Additional Health Concerns Infection Onset Date Last Indicated Resolved Time COVID: Suspected 05/01/2022 05/01/2022 05/01/2022 4:59 AM CDT documented as of this encounter Care Teams Machine Buffer Relationship Specialty Start Date End Date Wei Swan MD PCP - General 02/22/13 01/13/22 documented as of this encounter
--- OUTSIDE RECORDS SUMMARY | 2019-07-16 23:00 | XMS_ITS | Encounter Summary ---
Author Organization [facility] Healthcare Address [address] [place] [address] Care Team Providers Care Detector Car Operator Name Role Phone Wei Swan MD Primary Care Provider [phone] Reason for Visit * Diagnostic Imaging (Routine) - Closed Specialty Diagnoses / Procedures Referred By Contac t Referred To Contact Procedures Breast Imaging Screening Outside Reference Aft, Ciara Dorsey MD PhD [address] [place] [address] Phone: tel: fax: Referral ID Status Reason Start Date Expiration Date Visits Re quested Visits Authorized [id number] Closed 01/26/2022 02/25/2023 1 1 Encounter Details Date Type Department Care Team (Late st Contact Info) Description 07/17/2019 Hospital Encounter [facility] [address] [place], [place] [id number] Social History Tobacco Use Types Packs/Day Years [...] on file 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 Gender Identity Female 03/11/2022 12:06 PM [...] Barnett RN Nutrition 3 10/05/2022 12:10 PM OPTICAL GOODS DRILLING MACHINE OPERATOR Joycelyn Owen RN Friction and Shear 3 10/05/2022 12:10 PM Joycelyn Bender RN Aamir Scale Score 22 10/05/2022 12:10 PM Joycelyn Bender RN * Question Answer Date of Assessment Author BP Method Manual 03/03/2023 3:56 PM CDT Trinity Dorantes PTA * Question Answer Date of Assessment Author BP Location Left arm 09/18/2025 2:24 PM OPTICAL GOODS DRILLING MACHINE OPERATOR Johanny Begum CMA * Fall Risk [...] BP Location Left arm 09/18/2025 2:24 PM OPTICAL GOODS DRILLING MACHINE OPERATOR Johanny Begum CMA * Question Answer [...] 2 weeks? No 05/01/2022 8:35 PM Itzel Washintgon RN * Therapy Consults Question Answer Date of Assessment Author PT Evaluation Needed 2 05/01/2022 8:35 PM Itzel Pollack RN OT Evaluation Needed 2 05/01/2022 8:35 PM C Itzel Alfaro RN UNIT TRUST MANAGER Evaluation Needed 2 05/01/2022 8:35 PM CDT Itzel Sun RN * Assistive Devices Question Answer Date of Assessment Author Assistive Devices/DME Cane;Eyeglasses;Co nt acts 09/20/2022 2:04 PM OPTICAL GOODS DRILLING MACHINE OPERATOR Cleo Solis RN documented as of [...] and have not been reviewed by [facility] Radiology. There will be no report generated by a [facility] Radiologist. Narrative [facility] - 01/26/2022 2:57 PM CDT EXAMINATION: Images For Reference Purposes Only us Ciara Martinez MD PhD IMG MAMMO PROCEDURES Final Result [facility] documented in this encounter Visit Diagnoses Not on filedocumented in this encounter Additional Health Concerns Infection Onset Date Last Indicated Resolved Time COVID: Suspected 05/01/2022 05/01/2022 05/01/2022 4:59 AM CDT documented as of this encounter Care Teams Detector Car Operator Relationship Specialty Start Date End Date Wei Swan MD PCP - General 02/22/13 01/13/22 documented as of this encounter
--- OUTSIDE RECORDS SUMMARY | 2020-08-14 23:00 | XMS_ITS | Encounter Summary ---
Author Organization [facility] Healthcare Address [address] [place] [address] Care Team Providers Care Director Of Regional Sales Name Role Phone Wei Swan MD Primary Care Provider [phone] Reason for Visit * Diagnostic Imaging (Routine) - Closed Specialty Diagnoses / Procedures Referred By Contac t Referred To Contact Procedures Breast Imaging Screening Outside Reference Aft, Ciara Dorsey MD PhD [address] [place] [address] Phone: tel: fax: Referral ID Status Reason Start Date Expiration Date Visits Re quested Visits Authorized [id number] Closed 01/26/2022 02/25/2023 1 1 Encounter Details Date Type Department Care Team (Late st Contact Info) Description 08/15/2020 Hospital Encounter [facility] [address] [place], [place] [id number] Social History Tobacco Use Types Packs/Day Years [...] on file 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 Gender Identity Female 03/11/2022 12:06 PM CDT [...] Barnett RN Nutrition 3 10/05/2022 12:10 PM RAIL GANG SUPERVISOR Joycelyn Owen RN Friction and Shear 3 10/05/2022 12:10 PM Joycelyn Bender RN Aamir Scale Score 22 10/05/2022 12:10 PM Joycelyn Bender RN * Question Answer Date of Assessment Author BP Method Manual 03/03/2023 3:56 PM CDT Trinity Dorantes PTA * Question Answer Date of Assessment Author BP Location Left arm 09/18/2025 2:24 PM RAIL GANG SUPERVISOR Johanny Begum CMA * Fall Risk Interventions [...] BP Location Left arm 09/18/2025 2:24 PM RAIL GANG SUPERVISOR Johanny Begum CMA * Question Answer Date [...] with chlorhexidine (CHG) 05/02/2022 7:00 PM Itzel Washingtno RN * ADL Screening Question Answer Date [...] 05/01/2022 8:35 PM C Itzel Alfaro RN COMPUTER APPLICATIONS ENGINEER Evaluation Needed 2 05/01/2022 8:35 PM CDT Itzel Sun RN * Assistive Devices Question Answer Date of Assessment Author Assistive Devices/DME Cane;Eyeglasses;Co nt acts 09/20/2022 2:04 PM RAIL GANG SUPERVISOR Cleo Solis RN documented as of this [...] BREAST IMAGING MG SCREENING OUTSIDE REFERENCE Routine 08/15/2020 12:00 AM CDT documented in this encounter Results * Breast Imaging Screening Outside Reference (08/15/2020 12:00 AM CDT) Impressions [facility] - 01/26/2022 2:57 PM CDT These images are for Reference purposes only and have not been reviewed by [facility] Radiology. There will be no report generated by a [facility] Radiologist. Narrative [facility] - 01/26/2022 2:57 PM CDT EXAMINATION: Images For Reference Purposes Only us Ciara Martinez MD PhD IMG MAMMO PROCEDURES Final Result [facility] documented in this encounter Visit Diagnoses Not on filedocumented in this encounter Additional Health Concerns Infection Onset Date Last Indicated Resolved Time COVID: Suspected 05/01/2022 05/01/2022 05/01/2022 4:59 AM CDT documented as of this encounter Care Teams Director Of Regional Sales Relationship Specialty Start Date End Date Wei Swan MD PCP - General 02/22/13 01/13/22 documented as of this encounter
--- OUTSIDE RECORDS SUMMARY | 2020-08-14 23:00 | XMS_ITS | Encounter Summary ---
Author Organization [facility] Healthcare Address [address] [place] [address] Care Team Providers Care Wire Charger Name Role Phone eWi Swan MD Primary Care Provider [phone] Reason for Visit * Diagnostic Imaging (Routine) - Closed Specialty Diagnoses / Procedures Referred By Contac t Referred To Contact Procedures Breast Imaging Screening Outside Reference Aft, Ciara Dorsey MD PhD [address] [place] [address] Phone: tel: fax: Referral ID Status Reason Start Date Expiration Date Visits Re quested Visits Authorized [id number] Closed 01/26/2022 02/25/2023 1 1 Encounter Details Date Type Department Care Team (Late st Contact Info) Description 08/15/2020 Hospital Encounter [facility] [address] [place], [place] [id number] Social History Tobacco Use Types Packs/Day Years [...] on file 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 Gender Identity Female 03/11/2022 12:06 PM CDT [...] Barnett RN Nutrition 3 10/05/2022 12:10 PM UNDRAPED ARTIST MODEL Joycelyn Owen RN Friction and Shear 3 10/05/2022 12:10 PM Joycelyn Bender RN Aamir Scale Score 22 10/05/2022 12:10 PM Joycelyn Bender RN * Question Answer Date of Assessment Author BP Method Manual 03/03/2023 3:56 PM CDT Trinity Dorantes PTA * Question Answer Date of Assessment Author BP Location Left arm 09/18/2025 2:24 PM UNDRAPED ARTIST MODEL Johanny Begum CMA * Fall Risk Interventions [...] BP Location Left arm 09/18/2025 2:24 PM UNDRAPED ARTIST MODEL Johanny Begum CMA * Question Answer Date [...] Washington RN Feeding Independent 05/01/2022 8:35 PM Itezl Washington RN Bathing Independent 05/01/2022 8:35 PM [...] 05/01/2022 8:35 PM C Itzel Alfaro RN CORPORATE SECRETARY Evaluation Needed 2 05/01/2022 8:35 PM CDT Itzel Sun RN * Assistive Devices Question Answer Date of Assessment Author Assistive Devices/DME Cane;Eyeglasses;Co nt acts 09/20/2022 2:04 PM UNDRAPED ARTIST MODEL Cleo Solis RN documented as of this [...] only and have not been reviewed by [facility] Radiology. There will be no report generated by a [facility] Radiologist. Narrative [facility]_MAMMO[facility] - 01/26/2022 2:57 PM CDT EXAMINATION: Images For Reference Purposes Only us Ciara Martinez MD PhD IMG MAMMO PROCEDURES Final Result [facility]MAMMO[facility] documented in this encounter Visit Diagnoses Not on filedocumented in this encounter Additional Health Concerns Infection Onset Date Last Indicated Resolved Time COVID: Suspected 05/01/2022 05/01/2022 05/01/2022 4:59 AM CDT documented as of this encounter Care Teams Wire Charger Relationship Specialty Start Date End Date Wei Swan MD PCP - General 02/22/13 01/13/22 documented as of this encounter
[2025-10-16] VITALS (24 sets, daily range): BP systolic 83–127; BP diastolic 47–86; PULSE 61–89; RESP 17–35; TEMP 36.8–37.1; O2SAT 87–99; BMI 26.0
--- NOTE | ~2025-10-16 | XR_ITS ---
EXAMINATION: XR chest 1V portable COMPARISON: No comparisons available. HISTORY: Post procedure BRONCHOSCOPY FINDINGS: There are bilateral infiltrates. No pneumothorax. Heart is normal size. Mediastinal and hilar contours are within normal limits. Bony thorax no acute abnormality. Miscellaneous:ETT 3 cm above the brown, nasogastric tube in the stomach, left PICC line in the SVC. Large amount of subcutaneous air obscures evaluation for pneumothorax or pneumomediastinum. Impression: Bilateral pneumonia. Large amount of subcutaneous air. Evaluation for pneumothorax or pneumomediastinum is limited. CT suggested to assess as clinically one Reviewed, dictated and finalized at location P. ESS IM[employer]OVEMENT ANALYST Impression: Bilateral pneumonia. Large amount of subcutaneous air. Evaluation for pneumotho rax or pneumomediastinum is limited. CT suggested to assess as clinically one
--- NOTE | ~2025-10-16 | XR_ITS ---
EXAMINATION: XR chest 1V portable DATE: 10/18/2025 05:25 INDICATION: Pneumonia. Respiratory failure. TECHNIQUE: frontal view of the chest was obtained. COMPARISON: Chest radiograph dated 10/17/2025 FINDINGS: Coarse interstitial and patchy airspace opacities throughout both lungs. No pleural effusion or pneumothorax. Heart size is normal. There is suggestion of some pneumomediastinum in the region of the aortic arch with soft tissue gas at the neck. Cholecystectomy clips in right upper quadrant. IMPRESSION: 1. Diffuse bilateral lung disease which could represent pneumonia and/or mild to moderate pulmonary edema. 2. Pneumomediastinum and soft tissue gas at the neck. No pneumothorax. Reviewed, dictated and finalized at location A. AND PET SUPPLIES SALESPERSON IMPRESSION: 1. Diffuse bilateral lung disease which could represent pneumonia and/or mild t o moderate pulmonary edema. 2. Pneumomediastinum and soft tissue gas at the neck. No pneumothorax.
--- NOTE | ~2025-10-16 | XR_ITS ---
XR chest 1V portable INDICATION:Tachypnea/SaO2 74% . REFERENCE: None FINDINGS: A single AP of the chest demonstrates normal heart size. Patchy airspace opacities are scattered bilaterally. There is no evidence of pneumothorax or pleural effusion. IMPRESSION: Diffuse patchy airspace opacities bilaterally. Reviewed, dictated and finalized at location S. OSOFT DYNAMICS MANAGER ARCHITECT
--- NOTE | ~2025-10-16 | XR_ITS ---
EXAMINATION: XR chest ET placement COMPARISON: No comparisons available. HISTORY: intubation AND OG TUBE PLACEMENT FINDINGS: There are large diffuse bilateral airspace opacity is. No pneumothorax. Heart is normal size. Mediastinal and hilar contours are within normal limits. Bony thorax no acute abnormality. Miscellaneous: ETT 3 cm above the brown, nasogastric tube in the stomach. Impression: Severe bilateral pneumonia Reviewed, dictated and finalized at location P. T SERVICE HOST Impression: Severe bilateral pneumonia
--- NOTE | ~2025-10-16 | CT_ITS ---
EXAMINATION:CT diagnostic chest wo con DATE: 10/21/2025 14:20 INDICATION: Pneumomediastinum TECHNIQUE: Computed tomography (CT) of the chest was performed without intravenous contrast. The dose-length product (DLP) was 303.50 mGy-cm. COMPARISON: None. FINDINGS: Severe pneumomediastinum with air tracking into the soft tissues of the neck with extensive subcutaneous emphysema present; no clear source for pneumomediastinum. No pneumothorax. Diffuse patchy alveolar opacification throughout both lung ricci, accentuated by lower lung volumes, and developing trace pleural effusions right greater than left. Endotracheal tube tip extending to the mid to lower trachea. Gastric catheter with tip extending into the body the stomach. Left sided PICC line with tip in the lower SVC. Heart size normal with no significant pericardial effusion. Great vessels normal size. No acute process seen in the visualized upper abdomen or bony thorax. IMPRESSION: 1. Severe pneumomediastinum with air tracking cephalad into the neck soft tissues resulting in extensive subcutaneous emphysema in the neck, and lies right-sided chest wall. 2. Multifocal consolidative changes and trace bilateral pleural effusions with overall worse appearance compared to October 16 exam. 3. Other findings as above. Reviewed, dictated and finalized at location A. CLEANER IMPRESSION: 1. Severe pneumomediastinum with air tracking cephalad into the neck soft tissu es resulting in extensive subcutaneous emphysema in the neck, and lies right-si ded chest wall. 2. Multifocal consolidative changes and trace bilateral pleural effusions with overall worse appearance compared to October 16 exam. 3. Other findings as above.
--- NOTE | ~2025-10-16 | US_ITS ---
EXAMINATION: US venous doppler [facility] DATE: 10/22/2025 11:57 INDICATION: Pulmonary embolus TECHNIQUE: Grayscale ultrasound images without and with compression and Doppler ultrasound images of the bilateral lower extremity veins were obtained. Exam limited due to patient body habitus, limited mobility and mechanical ventilation. COMPARISON: None. FINDINGS: The visualized portions of right common femoral vein, profunda (deep) femoral vein, femoral vein, popliteal vein, peroneal veins, posterior tibial veins, and greater saphenous vein outflow are patent. The visualized portions of left common femoral vein, profunda femoral vein, femoral vein, popliteal vein, peroneal veins, posterior tibial veins, and greater saphenous vein outflow are patent. IMPRESSION: 1. Somewhat limited examination with no deep venous thrombosis identified. Reviewed, dictated and finalized at location A. HASING OFFICER
--- NOTE | ~2025-10-16 | XR_ITS ---
Examination: XR chest 1V portable Clinical History: INCREASED WORK OF BREATHING Comparison: X-ray and CT chest earlier same day Technique: Portable AP Findings: Heart size normal. Mild worsening of diffuse interstitial opacity. No acute bony abnormality. IMPRESSION: 1. Mild worsening of diffuse severe pneumonitis, probably viral. Reviewed, dictated and finalized at location R. D TRUCK OPERATOR
--- NOTE | ~2025-10-16 | XR_ITS ---
EXAMINATION: XR chest 1V portable COMPARISON: No comparisons available. HISTORY: JIM x10d FINDINGS: Scattered bilateral infiltrates. No pneumothorax. Heart is normal size. Mediastinal and hilar contours are within normal limits. Bony thorax no acute abnormality. Miscellaneous: None Impression: Bilateral pneumonia Reviewed, dictated and finalized at location P. RANCE VERIFICATION SPECIALIST Impression: Bilateral pneumonia
--- NOTE | ~2025-10-16 | XR_ITS ---
Examination: XR chest 1V portable Clinical History: Pneumonia, respiratory failure Comparison: 1 day prior Technique: Portable AP Findings: ET tube, NG tube, left PICC. Heart size normal. Persistent pneumomediastinum. Diffuse bilateral airspace opacities. Dense airspace disease left base. No acute bony abnormality. Cervical subcutaneous emphysema. IMPRESSION: 1. No significant change or worsening. Reviewed, dictated and finalized at location R. SINGER
--- NOTE | ~2025-10-16 | XR_ITS ---
EXAMINATION: XR chest 1V portable COMPARISON: No comparisons available. HISTORY: Pneumonia, respiratory failure FINDINGS: There are bilateral infiltrates. No pneumothorax. Heart is normal size. Mediastinal and hilar contours are within normal limits. Bony thorax no acute abnormality. Miscellaneous: ET tube 3 cm above the brown, nasogastric tube in the stomach, left PICC line in the SVC. Impression: Mild improvement Reviewed, dictated and finalized at location P. AL MARKETING COORDINATOR Impression: Mild improvement
--- NOTE | ~2025-10-16 | XR_ITS ---
Examination: XR chest 1V portable Clinical History: Pneumonia, respiratory failure Comparison: 1 day prior Technique: Portable AP Findings: ET tube, NG tube. Heart size normal. Mild pneumomediastinum persists. Persistent scattered diffuse bilateral airspace disease. No acute bony abnormality. IMPRESSION: 1. Persistent bilateral multifocal pneumonia. 2. Persistent mild pneumomediastinum. Reviewed, dictated and finalized at location R. CTOR DATABASE
--- NOTE | ~2025-10-16 | XR_ITS ---
EXAMINATION: XR chest 1V portable COMPARISON: No comparisons available. HISTORY: Pneumonia, respiratory failure FINDINGS: There are large bilateral infiltrates with moderate pulmonary venous congestion. No pneumothorax. Mild cardiomegaly. Mediastinal and hilar contours are within normal limits. Bony thorax no acute abnormality. Miscellaneous: ET tube 3 cm above the brown, nasogastric tube in the stomach. Impression: CHF. Superimposed probable pneumonia. The findings appear slightly progressed Reviewed, dictated and finalized at location P. LY RESOURCE SPECIALIST Impression: CHF. Superimposed probable pneumonia. The findings appear slightly progressed
--- NOTE | ~2025-10-16 | XR_ITS ---
EXAMINATION: XR chest 1V portable COMPARISON: No comparisons available. HISTORY: Pneumonia, respiratory failure FINDINGS: There are bilateral infiltrates. No pneumothorax. Heart is normal size. Mediastinal and hilar contours are within normal limits. Bony thorax no acute abnormality. Miscellaneous: ET tube 2 cm above the brown, left PICC line in the SVC, nasogastric tube in the stomach. Impression: Bilateral pneumonia. The findings appear minimally improved Reviewed, dictated and finalized at location P. ERN HAND Impression: Bilateral pneumonia. The findings appear minimally improved
--- NOTE | ~2025-10-16 | CT_ITS ---
EXAMINATION: CTA chest PE protocol DATE: 10/16/2025 16:14 INDICATION: Difficulty breathing. Recent upper respiratory tract infection. TECHNIQUE: Computed tomography (CT) pulmonary angiogram of the chest was performed with 100 mL Omnipaque-350 intravenous contrast. Additional 3D reconstructions utilizing coronal maximum intensity projection (MIP) were performed. Automated exposure control and iterative reconstruction technique were employed. The dose-length product was 167.83 mGy-cm. COMPARISON: None FINDINGS: There is a pulmonary arterial filling defect in the first order branch of the right posterior basilar pulmonary artery as well as within a few smaller subsegmental pulmonary arteries in the lateral basilar segment of the left lower lobe. Small patchy regions of consolidation with surrounding groundglass and linear opacities scattered throughout both lungs suspicious for pneumonia with appearance very similar to COVID pneumonia as manifest during the early stages of the pandemic. No pleural effusion. Heart size is normal. No evident right heart strain. No pericardial effusion. There is pneumomediastinum primarily peripheral to the pericardium on both the left and right. No evident pneumothorax. Thoracic aorta is normal in caliber with no dissection. No pathologically enlarged thoracic lymphadenopathy. And visualized upper abdomen is unremarkable. Moderate to severe thoracic spondylosis. IMPRESSION: 1. Pulmonary emboli in subsegmental pulmonary arteries in the bilateral basilar lower lobes with relatively low clot burden and without evident right heart strain. Dr. French discussed these findings with Dr. Guadalupe at 4:40 PM. 2. Diffuse bilateral lung disease suspicious for atypical pneumonia with appearance similar to COVID pneumonia as manifest during the early stages of the pandemic. 3. Small amount of pneumomediastinum of indeterminate origin. Reviewed, dictated and finalized at location A. Y COORDINATOR IMPRESSION: 1. Pulmonary emboli in subsegmental pulmonary arteries in the bilateral basilar lower lobes with relatively low clot burden and without evident right heart st rain. Dr. French discussed these findings with Dr. Guadalupe at 4:40 PM. 2. Diffuse bilateral lung disease suspicious for atypical pneumonia with appear ance similar to COVID pneumonia as manifest during the early stages of the pand emic. 3. Small amount of pneumomediastinum of indeterminate origin.
--- NOTE | ~2025-10-16 | XR_ITS ---
EXAMINATION: XR chest 1V portable COMPARISON: No comparisons available. HISTORY: Resp Failure FINDINGS: There are bilateral infiltrates superimposed on chronic lung disease. No pneumothorax. Heart is normal size. Mediastinal and hilar contours are within normal limits. Bony thorax no acute abnormality. Miscellaneous: ET tube 3 cm above the brown, nasogastric tube in the stomach, left PICC line in the SVC. Impression: Bilateral pneumonia superimposed on chronic lung disease. The findings appear slightly progressed compared to the previous study. Reviewed, dictated and finalized at location P. COORDINATOR Impression: Bilateral pneumonia superimposed on chronic lung disease. The findings appear s lightly progressed compared to the previous study.
--- NOTE | 2025-10-16 14:51 | ECG_ITS ---
Test Date: 2025-10-16 15:29:45 Measurements Intervals [place] Rate: 82 P: 54 IA: 171 QRS: 39 QRSD: 85 T: 36 QT: 377 QTc: 442 Interpretive Statements SINUS RHYTHM POSSIBLE LEFT ATRIAL ENLARGEMENT MINIMAL Q WAVES- INFERIOR LEADS BORDERLINE T WAVE ABNORMALITY- ANTERIOR LEADS BASELINE ARTIFACT- I, II, III, AVR, AVF, V2-V6 BORDERLINE ECG No previous ECG available for comparison Electronically Signed On 10-16-2025 19:37:24 SERVICE GIRL by Waqas Bruno D.O.
[2025-10-16] MEDS: IPRATROPIUM 0.5 MG/ALBUTEROL SULFATE 2.5 MG (BASE) AMPUL.NEB 3 ML INHALATION (15:15)
[2025-10-16 15:21] LABS: Hematocrit 31.0 % (37.0-47.0); Hemoglobin 11.3 g/dL (12.0-15.0); Immature Granulocyte Percent A 0.6 % (0-0.5); Lymphocytes Absolute Auto 0.75 K/mm3 (0.9-3.2); Mean Corpuscular HGB Conc 36.5 g/dl (32-36); Mean Corpuscular Hemoglobin 42.0 pg (26-34); Mean Corpuscular Volume 115.2 fl (80-100); Nucleated Red Blood Cells Absolute Auto 0.000 K/mm3 (0.0-0.012); Nucleated Red Blood Cells Perc 0.0 % (0.0-0.2); Platelet Count Result 150 k/mm3 (150-375); Red Blood Count 2.69 M/mm3 (4.2-5.4); White Blood Count 5.3 K/mm3 (4.5-10.0)
[2025-10-16 15:22] LABS: Strep Group A RT-PCR NOT DETECTED (Negative)
[2025-10-16 15:33] LABS: Influenza A QL RT-PCR Negative (Negative); Influenza B QL RT-PCR Negative (Negative); RSV RNA, RT-PCR Negative (Negative); SARS-CoV-2 RNA PCR Negative (Negative)
[2025-10-16 15:34] LABS: Alanine Aminotransferase 29 U/L (6-35); Albumin Level 3.7 g/dL (3.5-5.1); Alkaline Phosphatase 134 U/L (38-126); Anion Gap 4 mmol/L (4-12); Aspartate Amino Transferase 44 U/L (14-36); Bilirubin,Total 0.6 mg/dL (0.2-1.3); Blood Urea Nitrogen 24 mg/dL (7-17); Calcium 9.8 mg/dL (8.4-10.2); Carbon Dioxide 31 mmol/L (22-30); Chloride 99 mmol/L (98-107); Estimated CRCL calculation 49 ml/min; Estimated Glomerular Filt Rate > 60; Glucose 76 mg/dL (65-110); Magnesium 2.0 mg/dL (1.6-2.3); Potassium 3.5 mmol/L (3.4-5.0); Sodium 134 mmol/L (137-145); Total Protein 6.7 g/dL (6.3-8.2)
[2025-10-16 15:43] LABS: NT Pro B Type Natriuretic Pept 592 pg/mL (19.9-100)
[2025-10-16 15:45] LABS: Hypochromasia Occasional; Schistocytes None Seen
[2025-10-16 15:46] LABS: Macrocytosis 1+ (NORMAL)
--- OUTSIDE RECORDS SUMMARY | 2025-10-16 15:47 | XMS_ITS | Clinical Summary ---
Author Organization [facility] Address [address] [place] [address] Care Team Providers Care Brush Loader And Handle Attacher Name Role Phone Yasir Gonzalez MD Unavailable Aft, Ciara Dorsey MD PhD Unavailable [phone] Monika Bryant MD Unavailable Yeny Oliveira PhD Unavailable [phone] Yossi Reaves MD Primary Care Provider [phone] Jessenia Vaughn ELECTRICAL TECH/PROJECT MANAGER Unavailable [phone] Allergies Active Allergy Reactions Criticality Noted Date [...] simethicone-dip henhydramine-li docaine-nystati n (MAGIC MOUTHWASH) suspension 2-1-5-1Indicati ons:Mouth sores Swish and swallow 10 mL [...] 1 tablet (50 mcg total) by mouth information systems administrator before breakfast 30 tablet 2 025 Active [...] DAY 90 tablet 3 024 2024 Discontinued gabapentin (NEURONTIN) 300 mg capsuleIndicati [...] from 02/24/2022:Stage IIA(cT2, cN0(f), cM0, G3, ER+, VT+, HER2-) - Signed by Ilda Jenkins MD on 11/25/2022 Pathologic stage from 10/05/2022:No Stage Recommended(ypT1a, pN1mi(sn), cM0, GX, ER+, VT+, HER2-) - Signed by Ilda Jenkins MD on 11/25/2022 Overview (03/08/2022): Added automatically from request for surgery [id number] Assessment & Plan (05/03/2022 12:59 PM CDT): [...] Department Care Team Description 09/18/2025 2:30 PM HEALTHCARE ACCOUNT MANAGER Office Visit [facility] Medicine Oncology [address] [facility] [address] [place] [address] Yasir Gonzalez MD 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 breast in female, estrogen receptor positive (HCC) (Primary Dx); credit officer (current) use of aromatase inhibitors 09/18/2025 1:30 PM HEALTHCARE ACCOUNT MANAGER Lab [facility] - Lab Collection [address] [facility] Floor 5 [place] [address] 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 breast in female, estrogen receptor positive (HCC); credit officer (current) use of aromatase inhibitors 09/10/2025 11:00 AM CDT Office Visit [facility] Cardiology [address] [place] [address] Neha Roche NP History of chest pain; SVT (supraventricular tachycardia) 08/14/2025 9:50 AM CDT Lab [facility] [address] [place] [address] Migraine with aura and without status migrainosus, not intractable 08/14/2025 9:00 AM CDT Office Visit [facility] [address] [facility] [address] [place] [address] Rod Barrett MD Migraine with aura and without status migrainosus, not intractable (Primary Dx); Medication overuse headache 08/14/2025 Results [facility] [address] [place] [address] [address] [place] [address] Rod Barrett MD Thyroid Function Davis, T4, free from Last 3 Months Immunizations [...] Unspecified 08/29/2013,08/23/2012 Sars-cov-2 Covid-19 Mrna, Bi valent, Original/omoliverron Ba.1 09/24/2022 Tdap 03/18/2018 ZOSTER LIVE 10/08/2018,07/04/2018 [...] (supraventricular tachycardia) Chest pain Anxiety 1989 Arthritis 2020 Migraines 1981 Family History Medical History Relation [...] on file Legal Sex Female 2:50 AM HEALTHCARE ACCOUNT MANAGER Gender Identity Female 03/11/2022 12:06 PM [...] Comments Blood Pressure 100/64 09/18/2025 2:24 PM HEALTHCARE ACCOUNT MANAGER Pulse 83 09/18/2025 2:24 PM HEALTHCARE ACCOUNT MANAGER Temperature 37.8 C (100 F) 09/18/2025 2:24 PM HEALTHCARE ACCOUNT MANAGER Respiratory Rate 18 09/18/2025 2:24 PM HEALTHCARE ACCOUNT MANAGER Oxygen Saturation 94% 09/18/2025 2:24 PM HEALTHCARE ACCOUNT MANAGER Inhaled Oxygen Concentration - - Weight 71 kg (156 lb 9.6 oz) 09/18/2025 2:24 PM HEALTHCARE ACCOUNT MANAGER Height 165.1 cm (5' 5) 09/10/2025 10:58 [...] Vaccine (4 - 2024-2 6 season) 2025 09/24/2022, 09/14/2021, 2021, Additional history exists Breast Cancer Screening-Mammogram 05/07/2026 05/07/2025, 04/30/2024, 05/25/2023, Additional history exists DTaP/Tdap/Td Vaccine (2 - Td or Tdap) 03/18/2028 03/18/2018 Zoster Vaccine Completed 10/08/2018, 09/15, 07/04/2018, Additional history exists Influenza Vaccine Completed 09/18/2025, , 09/02/2023, Additional history exists Medical Devices Implanted Type Area Regulatory Internship Device Identifier Shelf Expiration Date Model / Serial / Lot Bard Peripheral Vascular Ultraclip Bard 17ga 10cm 2 Trigger Permanent Ultrasound [id number] - [id number] Implanted:Qty: 1 on 02/24/2022 at [facility] Bard Peripheral Vascular [id number] / / Bard Peripheral Vascular Powerport Clearvue Airguard 8fr 1 Lumen Lightweight Intermediate Latex Free [id number] - [id number] Implanted:Qty: 1 on 03/16/2022 by Aft, Ciara Dorsey MD PhD at [facility] Right: Chest Bard Peripheral Vascular 05/13/2023 [id number] / / [id number] Bard Peripheral Vascular Ghiatas 20ga 15cm 5cm Beaded Needle Breast Wire Localization [id number] - [id number] Implanted:Qty: 1 on 10/05/2022 at [facility] Left: Breast Bard Peripheral Vascular [id number] / / Procedures Procedure Name Priority Date/Time Associated Diagnosis Comments EGFR Routine 09/18/2025 2:14 PM HEALTHCARE ACCOUNT MANAGER 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 breast in female, estrogen receptor positive (HCC) assisted (current) use of aromatase inhibitors DIFFERENTIAL AUTO Routine 09/18/2025 2:1 4 PM HEALTHCARE ACCOUNT MANAGER 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 breast in female, estrogen receptor positive (HCC) assisted (current) use of aromatase inhibitors CBC WITH AUTO DIFFERENTIAL Routine 09/18/2025 2:14 PM HEALTHCARE ACCOUNT MANAGER 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 breast in female, estrogen receptor positive (HCC) assisted (current) use of aromatase inhibitors COMPREHENSIVE METABOLIC PANEL Routine 09/18/2025 2:14 PM HEALTHCARE ACCOUNT MANAGER 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 breast in female, estrogen receptor positive (HCC) assisted (current) use of aromatase inhibitors GUARDANT REVEAL Routine 09/18/2025 2:08 PM HEALTHCARE ACCOUNT MANAGER 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 [...] Maintenance Results * eGFR (09/18/2025 2:14 PM HEALTHCARE ACCOUNT MANAGER) eGFR 71 >=60 mL/min/1. 73 m2 Comment: [...] last reviewed 2021. Blood 09/18/2025 2:14 PM HEALTHCARE ACCOUNT MANAGER 09/18/2025 2:20 PM HEALTHCARE ACCOUNT MANAGER us Yasir Gonzalez MD LAB BLOOD ORDERAB LES Final Result [facility] Department [place] [address] * (ABNORMAL) Differential, auto (09/18/2025 2:14 PM HEALTHCARE ACCOUNT MANAGER) Neutrophil abs 2.37 1.50 - 6.50 K/cumm Comment:Testing performed by : [facility], [address] [place] [phone] Lymphocyte abs 0.49(L) 0.80 - 3.30 K/cumm [facility] Comment:Testing performed by : [facility], [address] [place] [phone] Monocyte abs 0.28 0.20 - 0.80 K/cumm [facility] Comment:Testing performed by : [facility], [address] [place] [phone] Eosinophil abs 0.19 0.00 - 0.50 K/cumm [facility] Comment:Testing performed by : [facility], [address] [place] [phone] Basophil abs 0.05 0.00 - 0.10 K/cumm [facility] Comment:Testing performed by : [facility], [address] [place] [phone] Neutrophil pct 70.1 % CERNER BJ Comment: Interpretive Data Percent cell count reference ranges are not reported, since discordance with absolute values may lead to misinterpretation of CBC data. Current Interpretive Data was last revised on 2018. Testing performed by: [facility], [address] [place] [phone] Lymphocyte pct 14.4 % [facility]ERN[facility] BJ Comment: Interpretive Data Percent cell count reference ranges are not reported, since discordance with absolute values may lead to misinterpretation of CBC data. Current Interpretive Data was last revised on 2018. Testing performed by: [facility], [address] [place] [phone] Monocyte pct 8.4 % [facility]J Comment: Interpretive Data Percent cell count reference ranges are not reported, since discordance with absolute values may lead to misinterpretation of CBC data. Current Interpretive Data was last revised on 2018. Testing performed by: [facility], [address] [place] [phone] Eosinophil pct 5.7 % [facility] BJ Comment: Interpretive Data Percent cell count reference ranges are not reported, since discordance with absolute values may lead to misinterpretation of CBC data. Current Interpretive Data was last revised on 2018. Testing performed by: [facility], [address] [place] [phone] Basophil pct 1.5 % [facility] BJ Comment: Interpretive Data Percent cell count reference ranges are not reported, since discordance with absolute values may lead to misinterpretation of CBC data. Current Interpretive Data was last revised on 2018. Testing performed by: [facility], [address] [place] [phone] Blood 09/18/2025 2:14 PM HEALTHCARE ACCOUNT MANAGER 09/18/2025 2:17 PM HEALTHCARE ACCOUNT MANAGER Yasir Gonzalez MD LAB BLOOD ORDERAB LES Final Result [facility] Department [place] [address] * (ABNORMAL) CBC with auto differential (09/18/2025 2:14 PM HEALTHCARE ACCOUNT MANAGER) WBC 3.38(L) 3.80 - 9.90 K/cumm Comment:Testing performed by : [facility], [address] [place] [address] Hgb 10.7(L) 11.9 - 15.5 g/dL [facility] BJ Comment:Testing performed by : [facility], [address] [place] [address] Hct 30.2(L) 35.6 - 45.5 % [facility]ER[facility] ACUNA Comment:Testing performed by : [facility], [address] [place] [address] Plt 252 150 - 400 K/cumm [facility] Comment:Testing performed by : [facility], [address] [place] [address] MPV 6.1(L) 6.8 - 10.4 fL [facility] BJ Comment:Testing performed by : [facility], [address] [place] [address] RBC 2.72(L) 3.90 - 5.20 M/cumm [facility] BJ Comment:Testing performed by : [facility], [address] [place] [address] MCV 111.0(H) 81.3 - 96.4 fL [facility] BJ Comment:Testing performed by : [facility], [address] [place] [address] MCH 39.4(H) 27.1 - 33.3 pg [facility] BJ Comment:Testing performed by : [facility], [address] [place] [address] MCHC 35.5 32.3 - 35.7 g/dL C[facility] BJ Comment:Testing performed by : [facility], [address] [place] [address] RDW CV 14.0 11.1 - 14.9 % [facility] Comment:Testing performed by : [facility], [address] [place] [address] NRBC abs 0.00 0.00 - 0.01 K/cumm [facility] Comment:Testing performed by : [facility], [address] [place] [address] Blood 09/18/2025 2:14 PM HEALTHCARE ACCOUNT MANAGER 09/18/2025 2:17 PM HEALTHCARE ACCOUNT MANAGER Yasir Gonzalez MD LAB BLOOD ORDERAB LES Final Result [facility] Department [place] [address] * (ABNORMAL) Comprehensive metabolic panel (09/18/2025 2:14 PM HEALTHCARE ACCOUNT MANAGER) Sodium 136 135 - 145 mmol/L Potassium, pl 4.6 3.3 - 4.9 mmol/L [facility] Chloride 99 97 - 110 mmol/L [facility] CO2 29 22 - 32 mmol/L [facility] Anion gap 8 2 - 15 mmol/L [facility] BUN 17 6 - 25 mg/dL [facility] Creatinine 0.90 0.60 - 1.10 mg/dL [facility] Glucose 92 70 - 199 mg/dL [facility] Comment: Interpretive Data Fasting glucose >/= [...] 2022. Calcium 9.3 8.5 - 10.3 mg/dL [facility] Bilirubin, total 0.5 0.1 - 1.2 mg/dL [facility] Protein, pl 6.4(L) 6.5 - 8.5 g/dL [facility] Albumin 3.7 3.5 - 5.0 g/dL [facility] Alk phos 93 40 - 130 Units/L [facility] ALT 14 7 - 45 Units/L [facility] AST 33 10 - 45 Units/L [facility] Blood 09/18/2025 2:14 PM HEALTHCARE ACCOUNT MANAGER 09/18/2025 2:20 PM HEALTHCARE ACCOUNT MANAGER us Yasir Gonzalez MD LAB BLOOD ORDERAB LES Final Result [facility] [place] [address] * Guardant Reveal One-Time Order (09/18/2025 2:08 PM HEALTHCARE ACCOUNT MANAGER) Pathologist [facility] TUMOR FRACTION 0% 09/27/2025 6:23 PM HEALTHCARE ACCOUNT MANAGER [facility] Blood specimen (specimen) Venous blood specimen / Unknown 09/18/2025 2:08 PM HEALTHCARE ACCOUNT MANAGER 09/20/2025 3:33 PM HEALTHCARE ACCOUNT MANAGER Yasir Gonzalez MD LAB GENETIC TESTI NG Final Result Performing Organization Address City/[facility]/ZIP Co de Phone Number [facility] [address] [place] [address] [facility] [address] [place] [address] * (ABNORMAL) Thyroid Function Davis (08/14/2025 9:53 AM CDT) Pathologist [facility] TSH 5.42(H) 0.30 - 4.20 mcIUnit/mL Blood 08/14/2025 9:53 AM CDT 08/14/2025 12:44 PM CDT Rod Barrett MD LAB BLOOD ORDERABLES Final Result Performing Organization Address [facility] Co de Phone Number [facility] [address] [place] [address] * T4, free (08/14/2025 9:53 AM CDT) Free T4 0.90 0.90 - 1.70 ng/dL Blood 08/14/2025 9:53 AM CDT 08/14/2025 12:44 PM CDT Narrative [facility] - 08/14/2025 3:25 PM CDT This test was reflexed from a TSH result. Rod aBrrett MD LAB BLOOD ORDERABLES Final Result Performing Organization Address [facility] de Phone Number [facility] [address] [place] [address] * Diagnostic Mammogram Bilateral W Reese (05/07/2025 [...] breast ultrasound was performed by a trained artillery or naval gunfire observer. BREAST PARENCHYMAL COMPOSITION: The breasts are extremely [...] Most Recently Relevant to Health Maintenance Insurance [facility] Advance Directives For more information, please contact: [phone] * Full Code (Latest Code Status on File) Date Activated Date Inactivated Comments 05/01/2022 8:25 PM 05/03/2022 7:39 PM Care Teams Brush Loader And Handle Attacher Relationship Specialty Start Date End Date Yossi Reaves MD [address] [place] [address] PCP - General Family Practice 09/02/23 Yasir Gonzalez MD [address] [place] [address] Consulting Physician Medical Oncology 03/08/22 Aft, Ciara Dorsey MD PhD [address] [place] [address] Surgeon Surgical Oncology 03/16/22 Monika Bryant MD [address] [place] [address] Radiation Oncologist Radiation Oncology 11/25/22 Yeny Oliveira, PhD [address] [facility] [address] [place] [address] Nurse Practitioner Radiation Oncology 02/07/23 Jessenia Vaughn NP [address] [place] [address] Nurse Practitioner Nurse Practitioner 09/05/23
--- OUTSIDE RECORDS SUMMARY | 2025-10-16 15:47 | XMS_ITS | Encounter Summary ---
Author Organization [facility] Address [address] [place] [address] Phone Care Team Providers Care On Air Talent Name Role Phone Giovanni Gutierrez DO Primary Care Provider [phone] Jessenia Vaughn CRANBERRY FARM SUPERVISOR Unavailable [phone] Yasir Gonzalez MD Unavailable Aft, Ciara Dorsey MD PhD Unavailable [phone] Monika Bryant MD Unavailable Nenita Rivera DPT Unavailable Yeny Oliveira PhD Unavailable [phone] Yossi Reaves MD Primary Care Provider [phone] Jessenia Vaughn CRANBERRY FARM SUPERVISOR Unavailable [phone] Encounter Details Date Type Department Care Team [...] on file Legal Sex Female 2:50 AM CLAMP FORKLIFT OPERATOR Gender Identity Female 03/11/2022 12:06 PM [...] on filedocumented in this encounter Care Teams On Air Talent Relationship Specialty Start Date End Date Giovanni Gutierrez DO PCP - General Internal Medicine 01/14/22 05/11/23 Yossi Reaves MD [address] [facility] [address] [facility] [address] [place] [address] PCP - General Family Practice 09/02/23 Jessenia Vaughn NP Nurse Practitioner Nurse Practitioner 01/14/22 3 Yasir Gonzalez MD [address] [place] [address] Consulting Physician Medical Oncology 03/08/22 AftCiara MD PhD [address] [place] [address] Surgeon Surgical Oncology 03/16/22 Monika Bryant MD [address] [facility] [address] [place] [address] Radiation Oncologist Radiation Oncology 11/25/22 Nenita Rivera DPT [address] [place] [address] Physical Therapist Physical Therapy 12/06/22 01/19/24 Yeny Oliveira, PhD [address] [place] [address] Nurse Practitioner Radiation Oncology 02/07/23 Jessenia Vaughn NP [address] [place] [address] Nurse Practitioner Nurse Practitioner 09/05/23 documented as of this encounter
--- OUTSIDE RECORDS SUMMARY | 2025-10-16 15:47 | XMS_ITS | Encounter Summary ---
Author Organization [facility] Address [address] [place] [address] Phone Care Team Providers Care Watch Repair Technician Name Role Phone Yasir Gonzalez MD Unavailable Aft, Ciara Dorsey MD PhD Unavailable [phone] Monika Bryant MD Unavailable Yeny Oliveira PhD Unavailable [phone] Yossi Reaves MD Primary Care Provider [phone] Jessenia Vaughn OBSERVATION ASSISTANT Unavailable [phone] Encounter Details Date Type Department Care Team [...] on file Legal Sex Female 2:50 AM SPINNER CONCRETE PIPE Gender Identity Female 03/11/2022 12:06 PM CDT [...] filedocumented in this encounter Care Teams Watch Repair Technician Relationship Specialty Start Date End Date Yossi Reaves MD [address] [facility] [address] [place] [address] PCP - General Family Practice 09/02/23 Yasir Gonzalez MD [address] [place] [address] Consulting Physician Medical Oncology 03/08/22 Aft, Ciara Dorsey MD PhD [address] [place] [address] Surgeon Surgical Oncology 03/16/22 Monika Bryant MD [address] [facility] [address] [place] [address] Radiation Oncologist Radiation Oncology 11/25/22 Yeny Oliveira, PhD [address] [facility] [address] [place] [address] Nurse Practitioner Radiation Oncology 02/07/23 Jessenia Vaughn NP [facility] [place] [place] [address] Nurse Practitioner Nurse Practitioner 09/05/23 documented as of this encounter
--- OUTSIDE RECORDS SUMMARY | 2025-10-16 15:47 | XMS_ITS ---
Author Organization [facility] Address [address] [place] [address] Care Team Providers Care Hand Mexican Food Maker Name Role Phone Yasir Gonzalez MD Unavailable Aft, Ciara Dorsey MD PhD Unavailable Monika Bryant MD Unavailable Yeny Oliveira PhD Unavailable [phone] Yossi Reaves MD Primary Care Provider [phone] Jessenia Vaughn LINE PREP COOK Unavailable [phone] Active Problems Problem Noted Date Diagnosed Date [...] from 02/24/2022:Stage IIA(cT2, cN0(f), cM0, G3, ER+, TX+, HER2-) - Signed by Ilda Jenkins MD on 11/25/2022 Pathologic stage from 10/05/2022:No Stage Recommended(ypT1a, pN1mi(sn), cM0, GX, ER+, TX+, HER2-) - Signed by Ilda Jenkins MD on 11/25/2022 Overview (03/08/2022): Added automatically from request for surgery [id number] Assessment & Plan (05/03/2022 12:59 PM CDT): [...]
--- OUTSIDE RECORDS SUMMARY | 2025-10-16 15:47 | XMS_ITS | Encounter Summary ---
Author Organization [facility] Address [address] [place] [address] Phone Care Team Providers Care Panelbeater Name Role Phone Yasir Gonzalez MD Unavailable Aft, Ciara Dorsey MD PhD Unavailable [phone] Monika Bryant MD Unavailable Yeny Oliveira PhD Unavailable [phone] Yossi Reaves MD Primary Care Provider [phone] Jessenia Vaughn INSPECTOR [employer] Unavailable [phone] Encounter Details Date Type Department Care Team [...] on file Legal Sex Female 2:50 AM MARKETING OPERATIONS SPECIALIST Gender Identity Female 03/11/2022 12:06 PM [...] on filedocumented in this encounter Care Teams Panelbeater Relationship Specialty Start Date End Date Yossi Reaves MD [address] [place] [address] PCP - General Family Practice 09/02/23 Yasir Gonzalez MD [address] [place] [address] Consulting Physician Medical Oncology 03/08/22 Aft, Ciara Dorsey MD PhD [address] [place] [address] Surgeon Surgical Oncology 03/16/22 Monika Bryant MD [address] [place] [address] Radiation Oncologist Radiation Oncology 11/25/22 Yeny Oliveira, PhD [address] [place] [address] Nurse Practitioner Radiation Oncology 02/07/23 Jessenia Vaughn NP [address] [place] [address] Nurse Practitioner Nurse Practitioner 09/05/23 documented as of this encounter
--- OUTSIDE RECORDS SUMMARY | 2025-10-16 15:47 | XMS_ITS | Encounter Summary ---
Author Organization [facility] Address [address] [place] [address] Phone Care Team Providers Care Fan Engine Engineer Name Role Phone Yasir Gonzalez MD Unavailable Aft, Ciara Dorsey MD PhD Unavailable [phone] Monika Bryant MD Unavailable Yeny Oliveira PhD Unavailable [phone] Yossi Reaves MD Primary Care Provider [phone] Jessenia Vaughn WELD LAY OUT WORKER Unavailable [phone] Encounter Details Date Type Department Care Team [...] on file Legal Sex Female 2:50 AM CALCULUS TUTOR Gender Identity Female 03/11/2022 12:06 PM CDT [...] on filedocumented in this encounter Care Teams Fan Engine Engineer Relationship Specialty Start Date End Date Yossi Reaves MD [address] [place] [address] PCP - General Family Practice 09/02/23 Yasir Gonzalez MD [address] [place] [address] Consulting Physician Medical Oncology 03/08/22 Aft, Ciara Dorsey MD PhD [address] [place] [address] Surgeon Surgical Oncology 03/16/22 Monika Bryant MD [address] [place] [address] Radiation Oncologist Radiation Oncology 11/25/22 Yeny Oliveira, PhD [address] [place] [address] Nurse Practitioner Radiation Oncology 02/07/23 Jessenia Vaughn, HAYLEY [address] [place] [address] Nurse Practitioner Nurse Practitioner 09/05/23 documented as of this encounter
--- OUTSIDE RECORDS SUMMARY | 2025-10-16 15:47 | XMS_ITS | Encounter Summary ---
Author Organization [facility] Address [address] [place] [address] Care Team Providers Care Title Camera Operator Name Role Phone Wei Swan MD Primary Care Provider [phone] Encounter Details Date Type Department Care Team (Late st Contact Info) Description 06/19/2020 Lab Requisition [facility] Care DermPath Lab [address] [facility] [place] [id number] Phillip Sims MD [address] [place] [address] Social History Tobacco Use Types Packs/Day Years Used Date Smoking Tobacco: Never Smokeless Tobacco: Never Alcohol Use Standard Drinks/Week Comments Yes 0 (1 standard drink = 0.6 oz pur e alcohol) Comments Unknown Sex and Gender Information Value Date Recorded Sex Assigned at Not on file Legal Sex Female 5:29 PM DIRECTOR EXPERIMENTAL MEDICINE Gender Identity Not on file Sexual Orientation Not on file documented as of this encounter Plan of Treatment Not on file documented as of this encounter Procedures Procedure Name Priority Date/Time Associated Diagnosis Comments DERMATOPATHOLOGY Routine 06/18/2020 12:0 0 AM CDT documented in this encounter Results * DERMATOPATHOLOGY (06/18/2020 12:00 AM CDT) Case Report Dermatopathology Report Case: [id number] Authorizing Provider: Phillip Sims MD Collected: 06/18/2020 12:00 AM Ordering Location: [facility] Care DermPath Lab Received: 06/19/2020 [...] specimen consists of a shave biopsy measuring [id number]. Jar 0. Specimen B: Received is one formalin filled container labeled with the patient's name and designated dependent left lat breast. The specimen consists of a shave biopsy (2 pieces) measuring [id number] & [id number]. Jar 0. 0 12:34 PM CDT DERMATOPATHOLOGY [...] characteristic determined by the Dermatopathology Laboratory at [facility], directed by Dr. Deepthi Larson. These tests need not be, and therefore are not, approved by the [place] Food and Drug Administration. The tests are used for clinical purposes. Billing Codes Specimen Charges Stain Charges 55842 44025 1 1 [id number] [id number] 1 1 0 12:34 PM CDT DERMATOPATHOLOGY LABORATORY Embedded Images 0 12:34 PM CDT DERMATOPATHOLOGY LABORATORY Pathology/Cytology TISSUE SPECIMEN FROM SKIN / Unknown 06/18/2020 06/19/2020 12:27 PM CDT Miscellaneous samples (specimen) TISSUE SPECIMEN FROM SKIN / Unknown 06/18/2020 06/19/2020 12:27 PM CDT Phillip Sims MD LAB - PATHOLOGY/CYTOLOGY ORD ERABLES Final Result DERMATOPATHOLOGY LABORATORY [facility] - Department of Dermatology [facility]/[address] [phone] documented in this encounter Visit Diagnoses Not on filedocumented in this encounter Care Teams Title Camera Operator Relationship Specialty Start Date End Date Wei Swan MD [address] [place] [address] PCP - General 06/28/17 documented as of this encounter
--- OUTSIDE RECORDS SUMMARY | 2025-10-16 15:47 | XMS_ITS | Clinical Summary ---
Author Organization [facility] [employer] Address [address] [place] [address] Care Team Providers Care Fabrication Manager Name Role Phone Wei Swan MD Primary Care Provider [phone] Source Comments [facility] [employer],non-owned Affiliates and Associated Physician Practices is amultiple site organization consisting of ambulatory clinics and hospital sitesin [place], [place], [place] and [place]. This disclosure is being madepursuant to the Care Everywhere program and may not contain all information available regarding this patient. Last updated 18.[facility] [employer] Allergies Active Allergy Reactions Criticality Noted Date [...] on file Legal Sex Female 5:29 PM ENGINEERING PROJECT DESIGNER Gender Identity Not on file Sexual Orientation [...] complete this topic Insurance [employer] Care Teams Fabrication Manager Relationship Specialty Start Date End Date Wei Swan MD [address] [place] [address] PCP - General 06/28/17
--- OUTSIDE RECORDS SUMMARY | 2025-10-16 15:48 | XMS_ITS | Encounter Summary ---
Author Organization [facility] Address [address] [place] [address] Care Team Providers Care Machine Slat Basket Maker Name Role Phone Unavailable Primary Care Provider Unavailabl e Encounter Details Date Type Department Care Team (Latest Contact Info) Description 12/01/[address] 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
--- OUTSIDE RECORDS SUMMARY | 2025-10-16 15:48 | XMS_ITS | Encounter Summary ---
Author Organization [facility] Address 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
--- OUTSIDE RECORDS SUMMARY | 2025-10-16 15:48 | XMS_ITS | Encounter Summary ---
Author Organization [facility] Address [address] [place] [address] Care Team Providers Care School Bus Driver/Mechanic Name Role Phone Unavailable Primary Care Provider Unavailabl e Encounter Details Date Type Department Care Team (Latest Contact Info) Description 03/18/1999 Outpatient Historical [facility] Clinton Mota MD NO ADDRESS ON FILE Female infertility associated with anovulation (Primary Dx) Social History Tobacco Use Types Packs/Day Years Used Date Smoking Tobacco: Never Assessed Comments Unknown Sex and Gender Information Value Date Recorded Sex Assigned at Not on file Legal Sex Female 4:53 AM RIVET MAKER Gender Identity Not on file Sexual Orientation Not on file documented as of this encounter Plan of Treatment Not on file documented as of this encounter Visit Diagnoses Diagnosis 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
--- OUTSIDE RECORDS SUMMARY | 2025-10-16 15:48 | XMS_ITS | Encounter Summary ---
Author Organization [facility] Address [address] [place] [address] Care Team Providers Care Staffing Analyst Name Role Phone Unavailable Primary Care [...] on file Legal Sex Female 4:53 AM PHOTOGRAPH INSPECTOR Gender Identity Not on file Sexual Orientation Not on file documented as of this encounter Plan of Treatment Not on file documented as of this encounter Visit Diagnoses Diagnosis Unspecified symptom associated with female genital organs- Primary documented in this encounter
--- OUTSIDE RECORDS SUMMARY | 2025-10-16 15:48 | XMS_ITS | Encounter Summary ---
Author Organization [facility] Address [address] [place] [address] Phone Care Team Providers Care Supplier Specialist Name Role Phone Yasir Gonzalez MD Unavailable Aft, Ciara Dorsey MD PhD Unavailable [phone] Monika Bryant MD Unavailable Yeny Oliveira PhD Unavailable [phone] Yossi Reaves MD Primary Care Provider [phone] Jessenia Vaughn PERSONAL BANKING ASSISTANT Unavailable [phone] Encounter Details Date Type Department Care Team [...] on file Legal Sex Female 2:50 AM SPRAYER INSECTICIDE Gender Identity Female 03/11/2022 12:06 PM CDT [...] on filedocumented in this encounter Care Teams Supplier Specialist Relationship Specialty Start Date End Date Yossi Reaves MD [address] [place] [address] PCP - General Family Practice 09/02/23 Yasir Gonzalez MD [address] [place] [address] Consulting Physician Medical Oncology 03/08/22 Aft, Ciara Dorsey MD PhD [address] [place] [address] Surgeon Surgical Oncology 03/16/22 Monika Bryant MD [address] [place] [address] Radiation Oncologist Radiation Oncology 11/25/22 Yeny Oliveira, PhD [address] [place] [address] Nurse Practitioner Radiation Oncology 02/07/23 Jessenia Vaughn NP [address] [place] [address] Nurse Practitioner Nurse Practitioner 09/05/23 documented as of this encounter
--- OUTSIDE RECORDS SUMMARY | 2025-10-16 15:48 | XMS_ITS | Encounter Summary ---
Author Organization [facility] Address [address] [place] [address] Care Team Providers Care Transport Rn Name Role Phone Unavailable Primary Care Provider [...] on file Legal Sex Female 4:53 AM SUPERVISOR LIME Gender Identity Not on file Sexual Orientation Not on file documented as of this encounter Plan of Treatment Not on file documented as of this encounter Visit Diagnoses Diagnosis Endometriosis of fallopian tube- Primary documented in this encounter
--- OUTSIDE RECORDS SUMMARY | 2025-10-16 15:48 | XMS_ITS | Encounter Summary ---
Author Organization [facility] Address 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
--- OUTSIDE RECORDS SUMMARY | 2025-10-16 15:48 | XMS_ITS | Encounter Summary ---
Author Organization [facility] Address [address] [place] [address] Care Team Providers Care Basic Sciences Professor Name Role Phone Unavailable Primary Care Provider [...] on file Legal Sex Female 4:53 AM LEARNING AND DEVELOPMENT ADMINISTRATOR Gender Identity Not on file Sexual Orientation Not on file documented as of this encounter Plan of Treatment Not on file documented as of this encounter Visit Diagnoses Diagnosis 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
--- OUTSIDE RECORDS SUMMARY | 2025-10-16 15:48 | XMS_ITS | Clinical Summary ---
Author Organization [facility] Address [address] Robertn: Epic Prelude ADT [place] [address] Care Team Providers Care Tire Builder Operator Name Role Phone Unavailable Primary Care Provider Unavailabl e Social History Tobacco Use Types Packs/Day Years Used Date Smoking Tobacco: Never Assessed Comments Unknown Sex and Gender Information Value Date Recorded Sex Assigned at Not on file Legal Sex Female 4:53 AM GROUP FITNESS DEPARTMENT HEAD Gender Identity Not on file Sexual Orientation [...]
--- OUTSIDE RECORDS SUMMARY | 2025-10-16 15:48 | XMS_ITS | Encounter Summary ---
Author Organization [facility] Address [address] [place] [address] Care Team Providers Care Health And Safety Consultant Name Role Phone Unavailable Primary Care Provider Unavailabl e Encounter Details Date Type Department Care Team (Latest Contact Info) Description 01/02/2000 Outpatient Historical [facility] Clinton Mota MD NO ADDRESS ON FILE Female infertility of unspecified origin (Primary Dx) Social History Tobacco Use Types Packs/Day Years Used Date Smoking Tobacco: Never Assessed Comments Unknown Sex and Gender Information Value Date Recorded Sex Assigned at Not on file Legal Sex Female 4:53 AM INFORMATION SYSTEMS SPECIALIST Gender Identity Not on file Sexual Orientation Not on file documented as of this encounter Plan of Treatment Not on file documented as of this encounter Visit Diagnoses Diagnosis Female infertility of unspecified origin- Primary documented in this encounter
--- OUTSIDE RECORDS SUMMARY | 2025-10-16 15:48 | XMS_ITS | Encounter Summary ---
Author Organization [facility] Address [address] [place] [address] Care Team Providers Care Retail Specialist Name Role Phone Unavailable Primary Care Provider Unavailabl e Encounter Details Date Type Department Care Team (Latest Contact Info) Description 03/06/2000 Outpatient Historical [facility] Clinton Mota MD NO ADDRESS ON FILE Female infertility of unspecified origin (Primary Dx) Social History Tobacco Use Types Packs/Day Years Used Date Smoking Tobacco: Never Assessed Comments Unknown Sex and Gender Information Value Date Recorded Sex Assigned at Not on file Legal Sex Female 4:53 AM STEEL SHOT HEADER OPERATOR Gender Identity Not on file Sexual Orientation Not on file documented as of this encounter Plan of Treatment Not on file documented as of this encounter Visit Diagnoses Diagnosis Female infertility of unspecified origin- Primary documented in this encounter
--- OUTSIDE RECORDS SUMMARY | 2025-10-16 15:48 | XMS_ITS | Encounter Summary ---
Author Organization [facility] Address [address] [place] [address] Care Team Providers Care Vacuum Conditioner Operator Name Role Phone Unavailable Primary Care Provider Unavailabl e Encounter Details Date Type Department Care Team (Latest Contact Info) Description 2000 Outpatient Historical [facility] Clinton Mota MD NO ADDRESS ON FILE Female infertility of unspecified origin (Primary Dx) Social History Tobacco Use Types Packs/Day Years Used Date Smoking Tobacco: Never Assessed Comments Unknown Sex and Gender Information Value Date Recorded Sex Assigned at Not on file Legal Sex Female 4:53 AM MEDICAL PAYMENT POSTER Gender Identity Not on file Sexual Orientation Not on file documented as of this encounter Plan of Treatment Not on file documented as of this encounter Visit Diagnoses Diagnosis Female infertility of unspecified origin- Primary documented in this encounter
--- OUTSIDE RECORDS SUMMARY | 2025-10-16 15:48 | XMS_ITS | Encounter Summary ---
Author Organization [facility] Address [address] [place] [address] Care Team Providers Care Dip Dyer Name Role Phone Unavailable Primary Care Provider [...] on file Legal Sex Female 4:53 AM MAINTENANCE CHIEF Gender Identity Not on file Sexual Orientation Not on file documented as of this encounter Plan of Treatment Not on file documented as of this encounter Visit Diagnoses Diagnosis Investigation and testing for procreation management- Primary documented in this encounter
--- OUTSIDE RECORDS SUMMARY | 2025-10-16 15:48 | XMS_ITS | Patient Health Record ---
Author Organization [facility] Address [address] [place], [place] [id number] Care Team Providers Care Lens Grinder And Polisher Name Role Phone MOIZ Sadler Unavailable [phone] Wei Swan Unavailable Unavailable Reason For Referral [...] Insured Coverage Start Date Coverage End Date [facility] [address] [place], [place] [id number] ALEXANDER GUEVARA Self - patient is the insured
--- OUTSIDE RECORDS SUMMARY | 2025-10-16 15:48 | XMS_ITS | Encounter Summary ---
Author Organization [facility] Address 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
--- OUTSIDE RECORDS SUMMARY | 2025-10-16 15:48 | XMS_ITS | Encounter Summary ---
Author Organization [facility] Address 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
--- OUTSIDE RECORDS SUMMARY | 2025-10-16 15:48 | XMS_ITS | Encounter Summary ---
Author Organization [facility] Address [address] [place] [address] Care Team Providers Care Nurses Aide Name Role Phone Unavailable Primary Care Provider [...] on file Legal Sex Female 4:53 AM UNARMED SECURITY OFFICER Gender Identity Not on file Sexual Orientation Not on file documented as of this encounter Plan of Treatment Not on file documented as of this encounter Visit Diagnoses Diagnosis 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
--- OUTSIDE RECORDS SUMMARY | 2025-10-16 16:46 | XMS_ITS | Clinical Summary ---
Author Organization [facility] [employer] Address [address] [place] [address] Care Team Providers Care Pig Handler Name Role Phone Wei Swan MD Primary Care Provider [phone] [facility] [employer],non-owned Affiliates and Associated Physician Practices is amultiple site organization consisting of ambulatory clinics and hospital sitesin [place], [place], [place] and [place]. This disclosure is being madepursuant to the Care Everywhere program and may not contain all information available regarding this patient. Last updated 18.[facility] [employer] Allergies Active Allergy Reactions Criticality Noted Date [...] on file Legal Sex Female 5:29 PM TENTER FRAME BACK TENDER Gender Identity Not on file Sexual Orientation [...] complete this topic Insurance [employer] Care Teams Pig Handler Relationship Specialty Start Date End Date Wei Swan MD [address] [place] [address] PCP - General 06/28/17
--- OUTSIDE RECORDS SUMMARY | 2025-10-16 16:46 | XMS_ITS | Encounter Summary ---
Author Organization [facility] Address [address] [place] [address] Care Team Providers Care Pmp Name Role Phone Wei Swan MD Primary Care Provider [phone] Encounter Details Date Type Department Care Team (Late st Contact Info) Description 06/19/[address] [facility] Care DermPath Lab [address] [place] [address] Phillip Sims MD [address] [place] [address] Social History Tobacco Use Types Packs/Day Years Used Date Smoking Tobacco: Never Smokeless Tobacco: Never Alcohol Use Standard Drinks/Week Comments Yes 0 (1 standard drink = 0.6 oz pur e alcohol) Comments Unknown Sex and Gender Information Value Date Recorded Sex Assigned at Not on file Legal Sex Female 5:29 PM METHODS ENGINEER Gender Identity Not on file Sexual Orientation Not on file documented as of this encounter Plan of Treatment Not on file documented as of this encounter Procedures Procedure Name Priority Date/Time Associated Diagnosis Comments DERMATOPATHOLOGY Routine 06/18/2020 12:0 0 AM CDT documented in this encounter Results * DERMATOPATHOLOGY (06/18/2020 12:00 AM CDT) Case Report Dermatopathology Report Case: [id number] Authorizing Provider: Phillip Sims MD Collected: 06/18/2020 12:00 AM Ordering Location: [facility] Care DermPath Lab Received: 06/19/2020 12:27 PM [...] specimen consists of a shave biopsy measuring [id number]. Jar 0. Specimen B: Received is one formalin filled container labeled with the patient's name and designated dependent left lat breast. The specimen consists of a shave biopsy (2 pieces) measuring [id number] & [id number]. Jar 0. 0 12:34 PM CDT DERMATOPATHOLOGY [...] by the Dermatopathology Laboratory at [facility], directed by Dr. Deepthi Larson. These tests need not be, and therefore are not, approved by the [place] Food and Drug Administration. The tests are used for clinical purposes. Billing Codes Specimen Charges Stain Charges 82697 64383 1 1 [id number] 1 1 0 12:34 PM CDT DERMATOPATHOLOGY LABORATORY Embedded Images 0 12:34 PM CDT DERMATOPATHOLOGY LABORATORY Pathology/Cytology TISSUE SPECIMEN FROM SKIN / Unknown 06/18/2020 06/19/2020 12:27 PM CDT Miscellaneous samples (specimen) TISSUE SPECIMEN FROM SKIN / Unknown 06/18/2020 06/19/2020 12:27 PM CDT Phillip Sims MD LAB - PATHOLOGY/CYTOLOGY ORD ERABLES Final Result DERMATOPATHOLOGY LABORATORY [facility] - Department of Dermatology [employer] Accessories Salesperson Center/[address] [phone] documented in this encounter Visit Diagnoses Not on filedocumented in this encounter Care Teams Pmp Relationship Specialty Start Date End Date Wei Swan MD [address] [place] [address] PCP - General 06/28/17 documented as of this encounter
--- OUTSIDE RECORDS SUMMARY | 2025-10-16 16:47 | XMS_ITS | Encounter Summary ---
Author Organization [facility] Address [address] [place] [address] Phone Care Team Providers Care Rope Twisting Machine Operator Name Role Phone Yasir Gonzalez MD Unavailable Aft, Ciara Dorsey MD PhD Unavailable [phone] Monika Bryant MD Unavailable Yeny Oliveira PhD Unavailable [phone] Yossi Reaves MD Primary Care Provider [phone] Jessenia Vaughn FLAG MAKER Unavailable [phone] Encounter Details Date Type Department Care Team [...] on file Legal Sex Female 2:50 AM WOODWORKING SHOP LABORER Gender Identity Female 03/11/2022 12:06 PM CDT [...] on filedocumented in this encounter Care Teams Rope Twisting Machine Operator Relationship Specialty Start Date End Date Yossi Reaves MD [address] [facility] [address] [place] [address] PCP - General Family Practice 09/02/23 Yasir Gonzalez MD [address] [place] [address] Consulting Physician Medical Oncology 03/08/22 Aft, Ciara Dorsey MD PhD [address] [place] [address] Surgeon Surgical Oncology 03/16/22 Monika Bryant MD [address] LL [facility] [address] [place] [address] Radiation Oncologist Radiation Oncology 11/25/22 Yeny Oliveira, PhD [address] LL [facility] [address] [place] [address] Nurse Practitioner Radiation Oncology 02/07/23 Jessenia Vaughn NP [facility] [place] [place] [address] Nurse Practitioner Nurse Practitioner 09/05/23 documented as of this encounter
--- OUTSIDE RECORDS SUMMARY | 2025-10-16 16:47 | XMS_ITS | Encounter Summary ---
Author Organization [facility] Address [address] [place] [address] Phone Care Team Providers Care Casting Supervisor Name Role Phone Yasir Gonzalez MD Unavailable Aft, Ciara Dorsey MD PhD Unavailable [phone] Monika Bryant MD Unavailable Yeny Oliveira PhD Unavailable [phone] Yossi Reaves MD Primary Care Provider [phone] Jessenia Vaughn SUPERVISOR CURING ROOM Unavailable [phone] Encounter Details Date Type Department Care Team [...] on file Legal Sex Female 2:50 AM PIECE MARKER SMALL ARMS Gender Identity Female 03/11/2022 12:06 PM CDT [...] on filedocumented in this encounter Care Teams Casting Supervisor Relationship Specialty Start Date End Date Yossi Reaves MD [address] [place] [address] PCP - General Family Practice 09/02/23 Yasir Gonzalez MD [address] [place] [address] Consulting Physician Medical Oncology 03/08/22 Aft, Ciara Dorsey MD PhD [address] [place] [address] Surgeon Surgical Oncology 03/16/22 Monika Bryant MD [address] [place] [address] Radiation Oncologist Radiation Oncology 11/25/22 Yeny Oliveira, PhD [address] [place] [address] Nurse Practitioner Radiation Oncology 02/07/23 Jessenia Vaughn, [place] [address] [place] [address] Nurse Practitioner Nurse Practitioner 09/05/23 documented as of this encounter
--- OUTSIDE RECORDS SUMMARY | 2025-10-16 16:47 | XMS_ITS | Clinical Summary ---
Author Organization [facility] Address [address] [place] [address] Care Team Providers Care Home Health Provider Name Role Phone Yasir Gonzalez MD Unavailable Aft, Ciara Dorsey MD PhD Unavailable [phone] Monika Bryant MD Unavailable Yeny Oliveira PhD Unavailable [phone] Yossi Reaves MD Primary Care Provider [phone] Jessenia Vaughn STABLE MANAGER Unavailable [phone] Allergies Active Allergy Reactions Criticality Noted Date [...] simethicone-dip henhydramine-li docaine-nystati n (MAGIC MOUTHWASH) suspension 9-0-4-1Indicati ons:Mouth sores Swish and swallow 10 mL [...] 1 tablet (50 mcg total) by mouth service person before breakfast 30 tablet 2 025 Active [...] from 02/24/2022:Stage IIA(cT2, cN0(f), cM0, G3, ER+, WI+, HER2-) - Signed by Ilda Jenkins MD on 11/25/2022 Pathologic stage from 10/05/2022:No Stage Recommended(ypT1a, pN1mi(sn), cM0, GX, ER+, WI+, HER2-) - Signed by Ilda Jenkins MD on 11/25/2022 Overview (03/08/2022): Added automatically from request for surgery [id number] Assessment & Plan (05/03/2022 12:59 PM CDT): [...] Department Care Team Description 09/18/2025 2:30 PM FACEPIECE LINE SUPERVISOR Office Visit [facility] Medicine Oncology [address] [facility] Floor [address] [place] [address] Yasir Gonzalez MD 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 breast in female, estrogen receptor positive (HCC) (Primary Dx); superintendent container terminal (current) use of aromatase inhibitors 09/18/2025 1:30 PM FACEPIECE LINE SUPERVISOR Lab [facility] - Lab Collection [address] [facility] [address] [place] [address] 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 breast in female, estrogen receptor positive (HCC); superintendent container terminal (current) use of aromatase inhibitors 09/10/2025 11:00 AM CDT Office Visit [facility] [address] [place] [address] Neha Roche NP History of chest pain; SVT (supraventricular tachycardia) 08/14/2025 9:50 AM CDT Lab [facility] [address] [place] [address] Migraine with aura and without status migrainosus, not intractable 08/14/2025 9:00 AM CDT Office Visit [facility] [address] [facility] [address] [place] [address] Rod Barrett MD Migraine with aura and without status migrainosus, not intractable (Primary Dx); Medication overuse headache 08/14/2025 Results [facility] [address] [place] [address] [address] [place] [address] Rod Barrett MD Thyroid Function Grand, T4, free from Last 3 Months Immunizations [...] on file Legal Sex Female 2:50 AM FACEPIECE LINE SUPERVISOR Gender Identity Female 03/11/2022 12:06 PM [...] Comments Blood Pressure 100/64 09/18/2025 2:24 PM FACEPIECE LINE SUPERVISOR Pulse 83 09/18/2025 2:24 PM FACEPIECE LINE SUPERVISOR Temperature 37.8 C (100 F) 09/18/2025 2:24 PM FACEPIECE LINE SUPERVISOR Respiratory Rate 18 09/18/2025 2:24 PM FACEPIECE LINE SUPERVISOR Oxygen Saturation 94% 09/18/2025 2:24 PM FACEPIECE LINE SUPERVISOR Inhaled Oxygen Concentration - - Weight 71 kg (156 lb 9.6 oz) 09/18/2025 2:24 PM FACEPIECE LINE SUPERVISOR Height 165.1 cm (5' 5) 09/10/2025 10:58 [...] history exists Medical Devices Implanted Type Area Party Supply Specialist Device Identifier Shelf Expiration Date Model / Serial / Lot Bard Peripheral Vascular Ultraclip Bard 17ga 10cm 2 Trigger Permanent Ultrasound [id number] - [id number] Implanted:Qty: 1 on 02/24/2022 at [facility] Bard Peripheral Vascular [id number] / / Bard Peripheral Vascular Powerport Clearvue Airguard 8fr 1 Lumen Lightweight Intermediate Latex Free [id number] - [id number] Implanted:Qty: 1 on 03/16/2022 by Aft, Ciara Dorsey MD PhD at [facility] Right: Chest Bard Peripheral Vascular 05/13/2023 [id number] / / [id number] Bard Peripheral Vascular Ghiatas 20ga 15cm 5cm Beaded Needle Breast Wire Localization [id number] - [id number] Implanted:Qty: 1 on 10/05/2022 at [facility] Left: Breast Bard Peripheral Vascular [id number] / / Procedures Procedure Name Priority Date/Time Associated Diagnosis Comments EGFR Routine 09/18/2025 2:14 PM FACEPIECE LINE SUPERVISOR 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 breast in female, estrogen receptor positive (HCC) shelter (current) use of aromatase inhibitors DIFFERENTIAL AUTO Routine 09/18/2025 2:1 4 PM FACEPIECE LINE SUPERVISOR 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 breast in female, estrogen receptor positive (HCC) shelter (current) use of aromatase inhibitors CBC WITH AUTO DIFFERENTIAL Routine 09/18/2025 2:14 PM FACEPIECE LINE SUPERVISOR 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 breast in female, estrogen receptor positive (HCC) shelter (current) use of aromatase inhibitors COMPREHENSIVE METABOLIC PANEL Routine 09/18/2025 2:14 PM FACEPIECE LINE SUPERVISOR 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 breast in female, estrogen receptor positive (HCC) shelter (current) use of aromatase inhibitors GUARDANT REVEAL Routine 09/18/2025 2:08 PM FACEPIECE LINE SUPERVISOR 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 [...] Maintenance Results * eGFR (09/18/2025 2:14 PM FACEPIECE LINE SUPERVISOR) eGFR 71 >=60 mL/min/1. 73 m2 Comment: [...] last reviewed 2021. Blood 09/18/2025 2:14 PM FACEPIECE LINE SUPERVISOR 09/18/2025 2:20 PM FACEPIECE LINE SUPERVISOR us Yasir Gonzalez MD LAB BLOOD ORDERAB LES Final Result [facility] Department [place] [address] * (ABNORMAL) Differential, auto (09/18/2025 2:14 PM FACEPIECE LINE SUPERVISOR) Neutrophil abs 2.37 1.50 - 6.50 K/cumm Comment:Testing performed by : [facility], [address] [place] [phone] Lymphocyte abs 0.49(L) 0.80 - 3.30 K/cumm [facility] Comment:Testing performed by : [facility], [address] [place] [phone] Monocyte abs 0.28 0.20 - 0.80 K/cumm [facility] Comment:Testing performed by : [facility], [address] [place] [phone] Eosinophil abs 0.19 0.00 - 0.50 K/cumm [facility] Comment:Testing performed by : [facility], [address] [place] [phone] Basophil abs 0.05 0.00 - 0.10 K/cumm [facility] Comment:Testing performed by : [facility], [address] [place] [phone] Neutrophil pct 70.1 % [facility] Comment: Interpretive Data Percent cell count reference ranges are not reported, since discordance with absolute values may lead to misinterpretation of CBC data. Current Interpretive Data was last revised on 2018. Testing performed by: [facility], [address] [place] [phone] Lymphocyte pct 14.4 % [facility] Comment: Interpretive Data Percent cell count reference ranges are not reported, since discordance with absolute values may lead to misinterpretation of CBC data. Current Interpretive Data was last revised on 2018. Testing performed by: [facility], [address] [place] [phone] Monocyte pct 8.4 % [facility] Comment: Interpretive Data Percent cell count reference ranges are not reported, since discordance with absolute values may lead to misinterpretation of CBC data. Current Interpretive Data was last revised on 2018. Testing performed by: [facility], [address] [place] [phone] Eosinophil pct 5.7 % [facility] Comment: Interpretive Data Percent cell count reference ranges are not reported, since discordance with absolute values may lead to misinterpretation of CBC data. Current Interpretive Data was last revised on 2018. Testing performed by: [facility], [address] [place] [phone] Basophil pct 1.5 % [facility] Comment: Interpretive Data Percent cell count reference ranges are not reported, since discordance with absolute values may lead to misinterpretation of CBC data. Current Interpretive Data was last revised on 2018. Testing performed by: [facility], [address] [place] [phone] Blood 09/18/2025 2:14 PM FACEPIECE LINE SUPERVISOR 09/18/2025 2:17 PM FACEPIECE LINE SUPERVISOR Yasir Gnozalez MD LAB BLOOD ORDERAB LES Final Result [facility] Department [place] [address] * (ABNORMAL) CBC with auto differential (09/18/2025 2:14 PM FACEPIECE LINE SUPERVISOR) WBC 3.38(L) 3.80 - 9.90 K/cumm Comment:Testing performed by : [facility], [address] [place] [address] Hgb 10.7(L) 11.9 - 15.5 g/dL [facility] Comment:Testing performed by : [facility], [address] [place] [address] Hct 30.2(L) 35.6 - 45.5 % [facility] Comment:Testing performed by : [facility], [address] [place] [address] Plt 252 150 - 400 K/cumm [facility] Comment:Testing performed by : [facility], [address] [place] [address] MPV 6.1(L) 6.8 - 10.4 fL [facility] Comment:Testing performed by : [facility], [address] [place] [address] RBC 2.72(L) 3.90 - 5.20 M/cumm [facility] Comment:Testing performed by : [facility], [address] [place] [address] MCV 111.0(H) 81.3 - 96.4 fL [facility] Comment:Testing performed by : [facility], [address] [place] [address] MCH 39.4(H) 27.1 - 33.3 pg [facility] Comment:Testing performed by : [facility], [address] [place] [address] MCHC 35.5 32.3 - 35.7 g/dL [facility] Comment:Testing performed by : [facility], [address] [place] [address] RDW CV 14.0 11.1 - 14.9 % [facility] Comment:Testing performed by : [facility], [address] [place] [address] NRBC abs 0.00 0.00 - 0.01 K/cumm [facility] Comment:Testing performed by : [facility], [address] [place] [address] Blood 09/18/2025 2:14 PM FACEPIECE LINE SUPERVISOR 09/18/2025 2:17 PM FACEPIECE LINE SUPERVISOR Yasir Gonzalez MD LAB BLOOD ORDERAB LES Final Result [facility] Department [place] [address] * (ABNORMAL) Comprehensive metabolic panel (09/18/2025 2:14 PM FACEPIECE LINE SUPERVISOR) Sodium 136 135 - 145 mmol/L Potassium, pl 4.6 3.3 - 4.9 mmol/L [facility] Chloride 99 97 - 110 mmol/L [facility] CO2 29 22 - 32 mmol/L [facility] Anion gap 8 2 - 15 mmol/L [facility] BUN 17 6 - 25 mg/dL [facility] Creatinine 0.90 0.60 - 1.10 mg/dL [facility] Glucose 92 70 - 199 mg/dL [facility] Comment: Interpretive Data Fasting glucose >/= 126 [...] 2022. Calcium 9.3 8.5 - 10.3 mg/dL [facility] Bilirubin, total 0.5 0.1 - 1.2 mg/dL [facility] Protein, pl 6.4(L) 6.5 - 8.5 g/dL [facility] Albumin 3.7 3.5 - 5.0 g/dL [facility] Alk phos 93 40 - 130 Units/L [facility] ALT 14 7 - 45 Units/L [facility] AST 33 10 - 45 Units/L [facility] Blood 09/18/2025 2:14 PM FACEPIECE LINE SUPERVISOR 09/18/2025 2:20 PM FACEPIECE LINE SUPERVISOR us Yasir Gonzalez MD LAB BLOOD ORDERAB LES Final Result [facility] Department [place] [address] * Guardant Reveal One-Time Order (09/18/2025 2:08 PM FACEPIECE LINE SUPERVISOR) Pathologist [facility] TUMOR FRACTION 0% 09/27/2025 6:23 PM FACEPIECE LINE SUPERVISOR [facility] Blood specimen (specimen) Venous blood specimen / Unknown 09/18/2025 2:08 PM FACEPIECE LINE SUPERVISOR 09/20/2025 3:33 PM FACEPIECE LINE SUPERVISOR Yasir Gonzalez MD LAB GENETIC TESTI NG Final Result Performing Organization Address City/[facility]/ZIP Co de Phone Number [facility] [address] [place] [address] [facility] [address] [place] [address] * (ABNORMAL) Thyroid Function Grand (08/14/2025 9:53 AM CDT) Pathologist [facility] TSH 5.42(H) 0.30 - 4.20 mcIUnit/mL Blood 08/14/2025 9:53 AM CDT 08/14/2025 12:44 PM CDT Rod Barrett MD LAB BLOOD ORDERABLES Final Result Performing Organization Address [facility] Co de Phone Number [facility] [address] [place] [address] * T4, free (08/14/2025 9:53 AM CDT) Free T4 0.90 0.90 - 1.70 ng/dL Blood 08/14/2025 9:53 AM CDT 08/14/2025 12:44 PM CDT Narrative [facility] - 08/14/2025 3:25 PM CDT This test was reflexed from a TSH result. Rod Barrett MD LAB BLOOD ORDERABLES Final Result Performing Organization Address [facility] de Phone Number [facility] [address] [place] [address] * Diagnostic Mammogram Bilateral W Reese (05/07/2025 [...] breast ultrasound was performed by a trained refinish technician. BREAST PARENCHYMAL COMPOSITION: The breasts are extremely [...] Most Recently Relevant to Health Maintenance Insurance [facility] Advance Directives For more information, please contact: [phone] * Full Code (Latest Code Status on File) Date Activated Date Inactivated Comments 05/01/2022 8:25 PM 05/03/2022 7:39 PM Care Teams Home Health Provider Relationship Specialty Start Date End Date Yossi Reaves MD [address] [place] [address] PCP - General Family Practice 09/02/23 Yasir Gonzalez MD [address] [place] [address] Consulting Physician Medical Oncology 03/08/22 Aft, Ciara Dorsey MD PhD [address] [place] [address] Surgeon Surgical Oncology 03/16/22 Monika Bryant MD [address] [place] [address] Radiation Oncologist Radiation Oncology 11/25/22 Yeny Oliveira, PhD [address] [facility] [address] [place] [address] Nurse Practitioner Radiation Oncology 02/07/23 Jessenia Vaughn NP [address] [place] [address] Nurse Practitioner Nurse Practitioner 09/05/23
--- OUTSIDE RECORDS SUMMARY | 2025-10-16 16:47 | XMS_ITS | Encounter Summary ---
Author Organization [facility] Address [address] [place] [address] Phone Care Team Providers Care Conference Manager Name Role Phone Giovanni Gutierrez DO Primary Care Provider [phone] Jessenia Vaughn NEGOTIATOR SALES Unavailable [phone] Yasir Gonzalez MD Unavailable Aft, Ciara oDrsey MD PhD Unavailable [phone] Monika Bryant MD Unavailable Nenita Rivera DPT Unavailable Yeny Oliveira PhD Unavailable [phone] Yossi Reaves MD Primary Care Provider [phone] Jessenia Vaughn NEGOTIATOR SALES Unavailable [phone] Encounter Details Date Type Department Care Team [...] on file Legal Sex Female 2:50 AM SOFT HAT BINDER Gender Identity Female 03/11/2022 12:06 PM CDT [...] on filedocumented in this encounter Care Teams Conference Manager Relationship Specialty Start Date End Date Giovanni Gutierrez DO PCP - General Internal Medicine 01/14/22 05/11/23 Yossi Reaves MD [address] [facility] [address] [facility] [address] [place] [address] PCP - General Family Practice 09/02/23 Jessenia Vaughn NP Nurse Practitioner Nurse Practitioner 01/14/22 3 Yasir Gonzalez MD [address] [place] [address] Consulting Physician Medical Oncology 03/08/22 AftCiara MD PhD [address] [place] [address] Surgeon Surgical Oncology 03/16/22 Monika Bryant MD [address] [facility] [address] [place] [address] Radiation Oncologist Radiation Oncology 11/25/22 Nenita Rivera DPT [address] [place] [address] Physical Therapist Physical Therapy 12/06/22 01/19/24 Yeny Oliveira, PhD [address] [place] [address] Nurse Practitioner Radiation Oncology 02/07/23 Jessenia Vaughn NP [address] [place] [address] Nurse Practitioner Nurse Practitioner 09/05/23 documented as of this encounter
--- OUTSIDE RECORDS SUMMARY | 2025-10-16 16:47 | XMS_ITS | Encounter Summary ---
Author Organization [facility] Address [address] [place] [address] Phone Care Team Providers Care Dandy Tender Name Role Phone Yasir Gonzalez MD Unavailable Aft, Ciara Dorsey MD PhD Unavailable [phone] Monika Bryant MD Unavailable Yeny Oliveira PhD Unavailable [phone] Yossi Reaves MD Primary Care Provider [phone] Jessenia Vaughn MARKETING COPYWRITER Unavailable [phone] Encounter Details Date Type Department Care Team [...] on filedocumented in this encounter Care Teams Dandy Tender Relationship Specialty Start Date End Date Yossi Reaves MD [address] [place] [address] PCP - General Family Practice 09/02/23 Yasir Gonzalez MD [address] [place] [address] Consulting Physician Medical Oncology 03/08/22 Aft, Ciara Dorsey MD PhD [address] [place] [address] Surgeon Surgical Oncology 03/16/22 Monika Bryant MD [address] [place] [address] Radiation Oncologist Radiation Oncology 11/25/22 Yeny Oliveira, PhD [address] [place] [address] Nurse Practitioner Radiation Oncology 02/07/23 Jessenia Vaughn NP [address] [place] [address] Nurse Practitioner Nurse Practitioner 09/05/23 documented as of this encounter
--- OUTSIDE RECORDS SUMMARY | 2025-10-16 16:47 | XMS_ITS | Encounter Summary ---
Author Organization [facility] Address [address] [place] [address] Care Team Providers Care Millwright Name Role Phone Unavailable Primary Care Provider [...] on file Legal Sex Female 4:53 AM ANIMAL CRUELTY INVESTIGATION SUPERVISOR Gender Identity Not on file Sexual Orientation Not on file documented as of this encounter Plan of Treatment Not on file documented as of this encounter Visit Diagnoses Diagnosis 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
--- OUTSIDE RECORDS SUMMARY | 2025-10-16 16:47 | XMS_ITS ---
Author Organization [facility] Address [address] [place] [address] Care Team Providers Care Superintendent Drilling And Production Name Role Phone Yasir Gonzalez MD Unavailable Aft, Ciara Dorsey MD PhD Unavailable Monika Bryant MD Unavailable Yeny Oliveira PhD Unavailable [phone] Yossi Reaves MD Primary Care Provider [phone] Jessenia Vaughn CLIENT SUPPORT PROFESSIONAL Unavailable [phone] Active Problems Problem Noted Date Diagnosed Date [...] from 02/24/2022:Stage IIA(cT2, cN0(f), cM0, G3, ER+, [place]+, HER2-) - Signed by Ilda Jenkins MD on 11/25/2022 Pathologic stage from 10/05/2022:No Stage Recommended(ypT1a, pN1mi(sn), cM0, GX, ER+, IL+, HER2-) - Signed by Ilda Jenkins MD on 11/25/2022 Overview (03/08/2022): Added automatically from request for surgery [id number] Assessment & Plan (05/03/2022 12:59 PM CDT): [...]
--- OUTSIDE RECORDS SUMMARY | 2025-10-16 16:47 | XMS_ITS | Encounter Summary ---
Author Organization [facility] Address [address] [place] [address] Care Team Providers Care Print Designer Name Role Phone Unavailable Primary Care [...] on file Legal Sex Female 4:53 AM STOCK TRACER Gender Identity Not on file Sexual Orientation Not on file documented as of this encounter Plan of Treatment Not on file documented as of this encounter Visit Diagnoses Diagnosis Unspecified symptom associated with female genital organs- Primary documented in this encounter
--- OUTSIDE RECORDS SUMMARY | 2025-10-16 16:48 | XMS_ITS | Encounter Summary ---
Author Organization [facility] Address [address] [place] [address] Phone Care Team Providers Care Government Auditor Name Role Phone Yasir Gonzalez MD Unavailable Aft, Ciara Dorsey MD PhD Unavailable [phone] Monika Bryant MD Unavailable Yeny Oliveira PhD Unavailable [phone] Yossi Reaves MD Primary Care Provider [phone] Jessenia Vaughn MANAGER OF HUMAN RESOURCES Unavailable [phone] Encounter Details Date Type Department Care Team [...] on file Legal Sex Female 2:50 AM DIVISION DIRECTOR Gender Identity Female 03/11/2022 12:06 PM [...] on filedocumented in this encounter Care Teams Government Auditor Relationship Specialty Start Date End Date Yossi Reaves MD [address] [place] [address] PCP - General Family Practice 09/02/23 Yasir Gonzalez MD [address] [place] [address] Consulting Physician Medical Oncology 03/08/22 Aft, Ciara Dorsey MD PhD [address] [place] [address] Surgeon Surgical Oncology 03/16/22 Monika Bryant MD [address] [place] [address] Radiation Oncologist Radiation Oncology 11/25/22 Yeny Oliveira, PhD [address] [place] [address] Nurse Practitioner Radiation Oncology 02/07/23 Jessenia Vaughn NP [address] [place] [address] Nurse Practitioner Nurse Practitioner 09/05/23 documented as of this encounter
--- OUTSIDE RECORDS SUMMARY | 2025-10-16 16:48 | XMS_ITS | Clinical Summary ---
Author Organization [facility] Address [address] Robertn: Epic Prelude ADT [place] [address] Care Team Providers Care Cma Or Lpn Name Role Phone Unavailable Primary Care Provider Unavailabl e Social History Tobacco Use Types Packs/Day Years Used Date Smoking Tobacco: Never Assessed Comments Unknown Sex and Gender Information Value Date Recorded Sex Assigned at Not on file Legal Sex Female 4:53 AM ROLL FORMING SUPERVISOR Gender Identity Not on file Sexual [...]
--- OUTSIDE RECORDS SUMMARY | 2025-10-16 16:48 | XMS_ITS | Encounter Summary ---
Author Organization [facility] Address [address] [place] [address] Care Team Providers Care Mental Health Aide Name Role Phone Unavailable Primary Care Provider Unavailabl e Encounter Details Date Type Department Care Team (Latest Contact Info) Description 06/08/1999 Outpatient Historical [facility] Clinton Mota MD NO ADDRESS ON FILE Female infertility associated with anovulation (Primary Dx) Social History Tobacco Use Types Packs/Day Years Used Date Smoking Tobacco: Never Assessed Comments Unknown Sex and Gender Information Value Date Recorded Sex Assigned at Not on file Legal Sex Female 4:53 AM CORPORATE LEGAL ASSISTANT Gender Identity Not on file Sexual Orientation Not on file documented as of this encounter Plan of Treatment Not on file documented as of this encounter Visit Diagnoses Diagnosis 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
--- OUTSIDE RECORDS SUMMARY | 2025-10-16 16:48 | XMS_ITS | Encounter Summary ---
Author Organization [facility] Address [address] [place] [address] Care Team Providers Care Electroslag Welding Machine Operator Name Role Phone Unavailable Primary Care Provider Unavailabl e Encounter Details Date Type Department Care Team (Latest Contact Info) Description 2000 Outpatient Historical [facility] Clinton Mota MD NO ADDRESS ON FILE Female infertility of unspecified origin (Primary Dx) Social History Tobacco Use Types Packs/Day Years Used Date Smoking Tobacco: Never Assessed Comments Unknown Sex and Gender Information Value Date Recorded Sex Assigned at Not on file Legal Sex Female 4:53 AM IN FLIGHT REFUELING OPERATOR Gender Identity Not on file Sexual Orientation Not on file documented as of this encounter Plan of Treatment Not on file documented as of this encounter Visit Diagnoses Diagnosis Female infertility of unspecified origin- Primary documented in this encounter
--- OUTSIDE RECORDS SUMMARY | 2025-10-16 16:48 | XMS_ITS | Encounter Summary ---
Author Organization [facility] Address [address] [place] [address] Care Team Providers Care Medical Claims Examiner Name Role Phone Unavailable Primary Care Provider [...] on file Legal Sex Female 4:53 AM SENIOR SERVICE AIDE Gender Identity Not on file Sexual Orientation Not on file documented as of this encounter Plan of Treatment Not on file documented as of this encounter Visit Diagnoses Diagnosis 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
--- OUTSIDE RECORDS SUMMARY | 2025-10-16 16:48 | XMS_ITS | Encounter Summary ---
Author Organization [facility] Address [address] [place] [address] Care Team Providers Care Peoplesoft Hrms Developer Name Role Phone Unavailable Primary Care Provider Unavailabl e Encounter Details Date Type Department Care Team (Latest Contact Info) Description 09/12/1999 Outpatient Historical [facility] Clinton Mota MD NO ADDRESS ON FILE Female infertility associated with anovulation (Primary Dx) Social History Tobacco Use Types Packs/Day Years Used Date Smoking Tobacco: Never Assessed Comments Unknown Sex and Gender Information Value Date Recorded Sex Assigned at Not on file Legal Sex Female 4:53 AM INSERTER Gender Identity Not on file Sexual Orientation Not on file documented as of this encounter Plan of Treatment Not on file documented as of this encounter Visit Diagnoses Diagnosis 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
--- OUTSIDE RECORDS SUMMARY | 2025-10-16 16:48 | XMS_ITS | Encounter Summary ---
Author Organization [facility] Address [address] [place] [address] Care Team Providers Care Financial Brokers Name Role Phone Unavailable Primary Care Provider Unavailabl e Encounter Details Date Type Department Care Team (Latest Contact Info) Description 03/06/[address] [facility] Clinton Mota MD NO ADDRESS ON FILE Female infertility of unspecified origin (Primary Dx) Social History Tobacco Use Types Packs/Day Years Used Date Smoking Tobacco: Never Assessed Comments Unknown Sex and Gender Information Value Date Recorded Sex Assigned at Not on file Legal Sex Female 4:53 AM CEMENT FITTINGS MAKER Gender Identity Not on file Sexual Orientation Not on file documented as of this encounter Plan of Treatment Not on file documented as of this encounter Visit Diagnoses Diagnosis Female infertility of unspecified origin- Primary documented in this encounter
--- OUTSIDE RECORDS SUMMARY | 2025-10-16 16:48 | XMS_ITS | Encounter Summary ---
Author Organization [facility] Address [address] [place] [address] Care Team Providers Care Machine Operator General Name Role Phone Unavailable Primary Care Provider Unavailabl e Encounter Details Date Type Department Care Team (Latest Contact Info) Description 01/02/[address] 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
--- OUTSIDE RECORDS SUMMARY | 2025-10-16 16:48 | XMS_ITS | Encounter Summary ---
Author Organization [facility] Address 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
--- OUTSIDE RECORDS SUMMARY | 2025-10-16 16:48 | XMS_ITS | Encounter Summary ---
Author Organization [facility] Address 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
--- OUTSIDE RECORDS SUMMARY | 2025-10-16 16:48 | XMS_ITS | Encounter Summary ---
Author Organization [facility] Address 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
--- OUTSIDE RECORDS SUMMARY | 2025-10-16 16:48 | XMS_ITS | Encounter Summary ---
Author Organization [facility] Address 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
--- OUTSIDE RECORDS SUMMARY | 2025-10-16 16:48 | XMS_ITS | Encounter Summary ---
Author Organization [facility] Address 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
--- OUTSIDE RECORDS SUMMARY | 2025-10-16 16:48 | XMS_ITS | Encounter Summary ---
Author Organization [facility] Address 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
[2025-10-16] MEDS: cefTRIAXone 1 GM in SODIUM CHLORIDE 0.9% IV 50 ML 100 ML IVPB (17:07)
[2025-10-16] MEDS: AZITHROMYCIN 500 MG TABLET PO (17:08)
[2025-10-16] MEDS: SODIUM CHLORIDE 0.9% IV 1,000 ML 999 ML IV CONT (17:08)
[2025-10-16] MEDS: APIXABAN 5 MG TABLET 10 MG PO (17:14)
--- NOTE | 2025-10-16 17:21 | P.HP_ITS ---
H&P: HPI History of Present Illness Date/Time: 10/16/25 17:21 Chief Complaint: Shortness of breath Narrative: 65-year-old female patient has a history of chronic back pain, tongue cancer and breast cancer on oral chemo, ADHD, grade 2 diastolic dysfunction, mitral valve prolapse presents the hospital with shortness of breath. Patient states that she has been sick for about 2 weeks. Last week she went to her PCP and was put on azithromycin and steroids she states that she has not gotten better. She she states that she has had dry cough. Patient is tachypneic on exam unable to speak in full sentences using some accessory muscles. Patient also complains of BARBIE horses for the last 3 nights. While in the emergency room the patient has increased oxygen needs from room air to 6 L, due to that an CT scan that looks like COVID we have elected to send patient to IMU and statin the floor. At this time. Patient was getting 20 mg of Lasix in the ED, on reassessment the patient is breathing better less tachypneic able to talk in complete sentences. Lab work in the ED shows hemoglobin of 11.3, D-dimer of 1.63, sodium of 134, carbon dioxide 31, BUN of 24, glucose is 76, AST of 44, alkaline phos of 134, BNP of 592, influenza A/B, RSV, COVID negative, strep A negative. Chest CTA shows pulmonary emboli with low clot burden and no right heart strain, diffuse bilateral lung disease suspicious for atypical pneumonia with appearance similar to COVID pneumonia as manifest during the early stages of the pandemic and Small amount of pneumomediastinum of indeterminate origin. Per family her oncologist has recommended holding her oral chemotherapy while in hospital. Review of Systems Review of Systems: 12 systems were reviewed and are negativ e except for as per HPI. [facility] Past Medical History Medical History Breast cancer COVID-19 Cervicalgia Chronic low back pain Back pain associated with peripheral numbness Screening for colon cancer Screening for breast cancer Postmenopausal SVT (supraventricular tachycardia) 2010 History of tongue cancer Anxiety and depression Attention deficit hyperactivity disorder (ADHD), combined type Grade II diastolic dysfunction Mitral valve prolapse Other and unspecified hyperlipidemia Primary insomnia Surgical History Surgical History History of laparoscopic cholecystectomy 05/09/20 H/O rectal sphincterotomy Endometriosis determined by laparoscopy History of tonsillectomy H/O section S/P bunionectomy History of carpal tunnel release Family History Family History (Updated 10/16/25 @ 20:09 by Bindu Bonilla RN) Mother Alzheimer disease Unknown Colon cancer Social History Social History Smoking status: Never smoker Second hand tobacco smoke exposure: No Alcohol intake: current Alcohol use details: a glass of wine every night with dinner Substance use: never Substance use type: does not use Lack of Transportation: No Lack of Food: Never True Current Housing: I Have Housing Concerned About Future Housing: No Difficulty Paying Gas/Electric Bills: No Difficulty Paying for Meds: No Currently Unemployed: No Education: Master's Degree or Higher Difficulty w/ Childcare or Family Care: No Living arrangements: with family Occupation/Education: occupation Gender identity (if verbalized by the patient): Female Sexual Orientation (if Verbalized by the Patient): Straight or Heterosexual Spiritual care concerns: Yes Agree to blood products: Yes Meds Home Medications and Allergies Home Medications ?Medication ?Instructions ?Recorded ?Confirmed ?Type anastrozole 1 mg tablet 1 mg PO DAILY #1 tablet 02/1210/16/25 Rx prochlorperazine maleate 10 mg 10 mg PO Q8H PRN nausea and 03/01/23 10/16/25 Rx tablet vomiting #1 tablet gabapentin 300 mg capsule 300 mg PO BID 10/04/2310/16 History vibegron 75 mg tablet (Gemtesa) 75 mg PO DAILY 3 10/16/25 History dicyclomine 20 mg tablet 20 mg PO QID PRN abdominal p ain 04/10/24 10/16/25 History abemaciclib 150 mg tablet 150 mg PO BID 10/15/2410/16 History (Verzenio) carvedilol phosphate 40 mg See Rx Instructions .Route 01/31/25 10/16/25 Rx capsule,[id number] multiphase .COMPLEX #90 caps ondansetron 4 mg disintegrating 4 mg PO Q8H PRN nausea and 04/02/25 10/16/25 Rx tablet vomiting #7 tabs biotin 10,000 mcg capsule 10,000 mcg PO DAILY 04/22/25 10/16/25 History calcium carbonate 600 mg PO BID 04/22/2510/16 History multivitamin (Daily Multi-Vitamin 1 tablet PO DAILY 10/16/25 History tablet) vitamin B complex 1 tablet PO DAILY 04/22/25 1 12/17/24 History pravastatin 40 mg tablet See Rx Instructions .Route 1 10/16/25 Rx .COMPLEX #90 tabs omeprazole 20 mg capsule,delayed See Rx Instructions . Route 10/02/25 10/16/25 Rx release .COMPLEX #90 caps dextroamphetamine-amphetamine 15 15 mg PO BID #60 tabs 10/09/25 10/16/25 Rx mg tablet (Adderall) duloxetine 60 mg capsule,delayed See Rx Instructions . Route 10/09/25 10/16/25 Rx release .COMPLEX #90 caps amitriptyline 50 mg tablet 50 mg PO QHS 10/16/2510/16 History levothyroxine 50 mcg tablet 50 mcg PO DAILY 10/16/25 1 12/17/24 History Allergies Allergy/AdvReac Type Severity Reaction Status Date / Time Penicillins Allergy Intermediate Hives Verified 10/16/25 20:08 adhesive tape AdvReac Mild RASH, Verified 10/16/25 20:08 ITCHING Vital Signs Vital Signs - 24 hr 10/16/25 14:38 10/16/25 14:45 10/16/25 14:46 Temperature 98.3 F Pulse Rate 86 82 Respiratory Rate 19 17 Blood Pressure 109/77 100/52 L Pulse Oximetry 94 97 96 Oxygen Delivery Room Air Room Air Oxygen Flow Rate 10/16/25 15:15 10/16/25 15:20 10/16/25 15:25 Temperature Pulse Rate 85 Respiratory Rate 20 Blood Pressure Pulse Oximetry 88 L 87 L Oxygen Delivery Nasal Cannula Room Air Oxygen Flow Rate 4 10/16/25 15:25 10/16/25 15:26 10/16/25 17:16 Temperature Pulse Rate 85 Respiratory Rate 20 Blood Pressure Pulse Oximetry 96 99 Oxygen Delivery Nasal Cannula Nasal Cannula Oxygen Flow Rate 4 6 Exam Narrative: General: Mild distress, accessory muscles tachypneic HEENT: normocephalic, atraumatic. Mucous membranes moist. EOMI, PERRLA, bilateral sclera anicteric, no conjunctival injection. Neck supple without JVD, lymphadenopathy, or bruit. Respiratory: Diminished course Cardiovascular: Regular rate and rhythm, normal S1-S2. No murmurs, rubs, or clicks. PMI is nondisplaced, capillary refill less than 3 second. Abdomen: Soft, round, no pulsatile masses, nondistended and nontender. No rebound, no guarding. Bowel sounds present to all four quadrants. No high pitch or tinkling sounds, resonant to percussion. Extremities: No cyanosis, clubbing, or edema present. Pulses are palpable 2/2. Active ROM to all four extremities. Neuro: Alert and orientated x 4. PERRLA. Cranial nerves 2-12 intact without focal deficit. Skin: Warm, dry, and intact, without rash, erythema, or lesion. Psych: pleasant, cooperative, normal speech, normal affect, no hallucinations, no dysarthia Results Labs Labs: Short CBC 10/16/25 Range/Units 15:15 WBC 5.3 (4.5-10.0) K/mm3 Hgb 11.3 L (12.0-15.0) g/dL Hct 31.0 L (37.0-47.0) % Plt Count 150 (150-375) k/mm3 BMP 10/16/25 15:15 Sodium 134 L Potassium 3.5 Chloride 99 Carbon Dioxide 31 H BUN 24 H D Creatinine 0.91 Glucose 76 Calcium 9.8 Liver Function 10/16/25 Range/Units 15:15 Total Bilirubin 0.6 (0.2-1.3) mg/dL AST 44 H (14-36) U/L ALT 29 (6-35) U/L Alkaline Phosphatase 134 H (38-126) U/L Albumin 3.7 (3.5-5.1) g/dL Critical Care Time Critical Care Time Indication: Acute respiratory distress Time Type: Intermittent Initial evaluation, discuss w/ involved parties, attempting to gather old records: 30 minutes Documenting medical record: 10 minutes Review of results (EKG's, labs, imaging): 10 minutes Discussing case with multiple memebers of the care team and consultants: 10 minutes Total Critical Care Time: 60 Critical Care Time Overview: Patient seen in the emergency room and on the floor. Respirations have improved after Lasix. Quality VTE Prophylaxis VTE prophylaxis: pharmacologic ordered If No VTE Prophylaxis Answer both mechanical and pharmacologic: Reason no mechanical VTE proph: medical contraindication Assessment and Plan Assessment and plan (1) Pneumonia: Code(s): J18.9 - Pneumonia, unspecified organism Status: Acute Assessment and Plan: CT with honeycomb appearance will order additional testing Pulmonology consult pending Lasix ordered after patient had increased oxygen demands after L bolus. respiratory panel with SARs COVID 2 pending Decadron daily Legionella pending Lactic acid 1.2 Mycoplasma pending Streptococcus pending Blood cultures pending MRSA pending Rocephin and azithromycin changed to Levaquin and cefepime Patient states that she would want to be intubated for respiratory distress (2) Pneumomediastinum: Code(s): J98.2 - Interstitial emphysema Status: Acute Assessment and Plan: Pulmonology consulted (3) Pulmonary embolism: Code(s): I26.99 - Other pulmonary embolism without acute cor pulmonale Status: Acute Assessment and Plan: 10 mg of Eliquis given in ED Eliquis b.i.d. No SCDs patient complaining calf pain (4) Attention deficit hyperactivity disorder (ADHD), combined type: Code(s): F90.2 - Attention-deficit hyperactivity disorder, combined type Status: Acute Assessment and Plan: Currently holding medication as patient does not feel she needs it while she is in hospital (5) Anxiety and depression: Code(s): F41.9 - Anxiety disorder, unspecified; F32.9 - Major depressive disorder, single episode, unspecified Status: Acute Assessment and Plan: Continue amitriptyline Hospitalist [facility] Advance Care Plan I have confirmed that the patient's Advanced Care Plan is present, code status is documented, or surrogate decision maker is listed in patient medical record.: Yes Medication Reconciliation I have utilized all available resources to obtain, update and review the patients current medications (includes all prescriptions, OTC, herbals, cannabis, and nutritional supplements).: Yes
--- NOTE | 2025-10-16 17:23 | WPCEDHO ---
ED Hand Off Checklist All vitals saved: yes IV Site documented: yes All med administrations documented: yes Triage Note Triage Note pt to ED from home with c/o SOB 10/16/25 14:38 and sore throat. pt states she was seen ant urgent care a week ago and put on antibiotics for an upper respiratory infection and finished them today. pt was seen at pcp today and was told to come here for low O2. pt states she is SOB and is having a hard time breathing. pt O2 is 94 upon arrival to room. Allergies Penicillins Allergy (Intermediate, Verified 10/16/25 16:08) Hives adhesive tape Adverse Reaction (Mild, Verified 10/16/25 16:08) RASH, ITCHING Family History (Last Reviewed 10/16/25 @ 12:55 by Kristin Vazquez [facility]) Mother Alzheimer disease Unknown Colon cancer Active Medications including assessments/comments Sodium Chloride (Normal Saline Iv) 1,000 mls @ 999 mls/hr IV CONT .Q1H1M STA Stop: 10/16/25 18:02 Last Admin: 10/16/25 17:08 Dose: 999 mls/hr Documented By: DIANNE Infusion/Titration Document 10/16/25 17:08 DIANNE (Rec: 10/16/25 17:08 DIANNE [id number]) Intake IV Site Peripheral Access Left Antecubital Container Volume 1,000 Waste Amount 0 Dosing Infusion Rate 999 Cumulative Dose Not Applicable Increase/Decrease Started Elapsed Time Elapsed Time ( 0m minutes) Administered/Completed Medications Discontinued Medications Albuterol/Ipratropium (Ipratropium 0.5 Mg/Albuterol Sulfate 2.5 Mg (Base) Ampul.Neb 3 Ml) 3 ml INHALATION ONCE STA Stop: 10/16/25 14:52 Last Admin: 10/16/25 15:15 Dose: 3 ml Documented By: AIDA Apixaban (Apixaban 5 Mg Tablet) 10 mg PO ONCE STA Stop: 10/16/25 16:44 Last Admin: 10/16/25 17:14 Dose: 10 mg Documented By: DIANNE Azithromycin (Azithromycin 500 Mg Tablet) 500 mg PO ONCE STA Stop: 10/16/25 16:45 Last Admin: 10/16/25 17:08 Dose: 500 mg Documented By: DIANNE Ceftriaxone Sodium 1 gm/ (Sodium Chloride) 50 mls @ 100 mls/hr IVPB ONCE STA Stop: 10/16/25 17:13 Last Admin: 10/16/25 17:07 Dose: 100 mls/hr Documented By: DIANNE Ceftriaxone Sodium 1 gm/ (Sodium Chloride) 50 mls @ 100 mls/hr IVPB Q24H [facility] Last Admin: 10/16/25 17:21 Dose: Not Given Documented By: DA Non-Admin Reason: No Dose Required Interventions/Assessments IV / Saline Lock, Insert Start: 10/16/25 14:27 Freq: Status: Active Protocol: Document 10/16/25 14:57 LDD (Rec: 10/16/25 14:57 LDD [id number]) IV Assessment Peripheral Access Left Antecubital IV Catheter Access Initiated IV Insertion Date 10/16/25 IV Insertion Time 14:57 Catheter Gauge 18 IV Insertion 1 Attempts Ultrasound Used for No Placement IV Site Assessment WNL IV Care and WNL Maintenance PA: Cardiovascular Assessment Start: 10/16/25 14:27 Freq: Status: Active Protocol: Document 10/16/25 14:45 LDD (Rec: 10/16/25 14:46 LDD [id number]) Cardiovascular Assessment Cardiovascular None Symptoms Skin Description Normal Color Heart Sounds Normal Jugular Vein None Distention PA: Respiratory Assessment Start: 10/16/25 14:27 Freq: Status: Active Protocol: Document 10/16/25 14:45 LDD (Rec: 10/16/25 14:46 LDD [id number]) Respiratory Assessment Symptoms Congestion,Cough,Shortness of Breath at Rest,Shortness of Breath With Exertion Effort Normal Pattern Regular Depth Normal Chest Expansion Symmetrical Cough Description Dry Sputum Amount None Oxygen Delivery Oxygen Delivery Room Air Pulse Oximetry (90- 97 100) Last Vital Signs Temperature 98.3 F 10/16/25 14:38 Pulse Rate 89 10/16/25 16:46 Respiratory Rate 22 H 10/16/25 16:46 Pulse Oximetry 99 10/16/25 17:16 Blood Pressure 101/64 10/16/25 16:46 Blood Pressure Mean 76 10/16/25 16:46 Oxygen Delivery Nasal Cannula 10/16/25 17:16 Oxygen Flow Rate 6 10/16/25 17:16 Weight 70.4 kg 10/16/25 14:38 Last Result - Abnormals Only RBC 2.69 M/mm3 (4.2-5.4) L 10/16/25 15:15 Hgb 11.3 g/dL (12.0-15.0) L 10/16/25 15:15 Hct 31.0 % (37.0-47.0) L 10/16/25 15:15 MCV 115.2 fl (80-100) H 10/16/25 15:15 MCH 42.0 pg (26-34) H 10/16/25 15:15 MCHC 36.5 g/dl (32-36) H 10/16/25 15:15 RDW 16.1 % (11.5-14.5) H 10/16/25 15:15 Immature Gran % (Auto) 0.6 % (0-0.5) H 10/16/25 15:15 Neut % (Auto) 79.0 % (45.5-73.1) H 10/16/25 15:15 Lymph % (Auto) 14.3 % (18.3-44.2) L 10/16/25 15:15 Lymph # (Auto) 0.75 K/mm3 (0.9-3.2) L 10/16/25 15:15 D-Dimer 1.63 ug/mL (<0.48) H 10/16/25 15:15 Sodium 134 mmol/L (137-145) L 10/16/25 15:15 Carbon Dioxide 31 mmol/L (22-30) H 10/16/25 15:15 BUN 24 mg/dL (7-17) H D 10/16/25 15:15 AST 44 U/L (14-36) H 10/16/25 15:15 Alkaline Phosphatase 134 U/L (38-126) H 10/16/25 15:15 NT-Pro-B Natriuret Pep 592 pg/mL (19.9-100) H 10/16/25 15:15 Most Recent Suicide Severity Rating Suicide Severity Rating NO RISK INDICATED 10/16/25 14:38
--- NOTE | 2025-10-16 17:36 | ED.SOB ---
HPI - SOB/Dyspnea General Chief Complaint: Shortness of Breath/Dyspnea Stated Complaint: cough,SOB, low O2 home readings Time Seen by Provider: 10/16/25 14:37 History of Present Illness HPI Narrative: Patient presents here with persistent cough, now increasing shortness of breath, was recently diagnosed with possible pneumonia started on antibiotics. Related Data Home Medications ?Medication ?Instructions ?Recorded ?Confirmed ?Last Taken ?Type gabapentin 300 mg capsule 300 mg PO BID 10/04/23 10/16/25 Unknown History vibegron 75 mg tablet (Gemtesa) 75 mg PO DAILY 10/04/23 10/16/25 Unknown History dicyclomine 20 mg tablet 20 mg PO QID PRN abdominal pain 04/10/24 10/16/25 Unknown History abemaciclib 150 mg tablet 150 mg PO BID 10/15/24 10/16/25 Unknown History (Verzenio) biotin 10,000 mcg capsule 10,000 mcg PO DAILY 04/22/25 10/16/25 Unknown History calcium carbonate 600 mg PO BID 04/22/25 10/16/25 Unknown History multivitamin (Daily Multi-Vitamin 1 tablet PO DAILY 04/22/25 10/16/25 Unknown History tablet) vitamin B complex 1 tablet PO DAILY 04/22/25 10/16/25 Unknown History amitriptyline 50 mg tablet mg PO DAILY 10/16/25 Unknown History levothyroxine 50 mcg tablet 50 mcg PO DAILY 10/16/25 10/16/25 Unknown History Allergies Allergy/AdvReac Type Severity Reaction Status Date / Time Penicillins Allergy Intermediate Hives Verified 10/16/25 16:08 adhesive tape AdvReac Mild RASH, Verified 10/16/25 16:08 ITCHING Review of Systems Review of Systems: All systems reviewed & are unremarkable except as noted in HPI and below PMFSH Past Medical History Medical History Breast cancer COVID-19 Cervicalgia Chronic low back pain Back pain associated with peripheral numbness Screening for colon cancer Screening for breast cancer Postmenopausal SVT (supraventricular tachycardia) 2010 History of tongue cancer Anxiety and depression Attention deficit hyperactivity disorder (ADHD), combined type Grade II diastolic dysfunction Mitral valve prolapse Other and unspecified hyperlipidemia Primary insomnia Surgical History Surgical History History of laparoscopic cholecystectomy 05/09/20 H/O rectal sphincterotomy Endometriosis determined by laparoscopy History of tonsillectomy H/O section S/P bunionectomy History of carpal tunnel release Family History Family History Mother Alzheimer disease Unknown Colon cancer Social History Social History Smoking status: Never smoker Second hand tobacco smoke exposure: No Alcohol intake: current Alcohol use details: a glass of wine every night with dinner Substance use: never Substance use type: does not use Lack of Transportation: No Lack of Food: Never True Current Housing: I Have Housing Concerned About Future Housing: No Difficulty Paying Gas/Electric Bills: No Difficulty Paying for Meds: No Currently Unemployed: No Education: Master's Degree or Higher Difficulty w/ Childcare or Family Care: No Living arrangements: with family Occupation/Education: occupation Gender identity (if verbalized by the patient): Female Sexual Orientation (if Verbalized by the Patient): Straight or Heterosexual Spiritual care concerns: No Agree to blood products: Yes Exam Narrative: EXAMINATION OF ORGAN SYSTEMS/BODY AREAS: Constitutional: Vital signs per nursing GENERAL: Appears very out of breath HEAD: Normal with no signs of head trauma. EYES: EOMI, conjunctiva normal ENT: Hearing grossly intact LUNGS: Dyspneic HEART: [Regular rate and rhythm] ABD: [Soft], [nontender to palpation] EXT: Normal range of motion SKIN: [No rashes or lesions.] NEURO: [Alert. No gross focal sensory or strength deficits.] PSYCH: Normal affect Course Vital Signs Vital signs: Vital Signs Temperature 98.3 F 10/16/25 14:38 Pulse Rate 86 10/16/25 14:38 Respiratory Rate 19 10/16/25 14:38 Blood Pressure 109/77 10/16/25 14:38 Pulse Oximetry 94 10/16/25 14:38 Oxygen Delivery Room Air 10/16/25 14:38 Temperature 98.3 F 10/16/25 14:38 Pulse Rate 89 10/16/25 16:46 Respiratory Rate 22 H 10/16/25 16:46 Blood Pressure 101/64 10/16/25 16:46 Pulse Oximetry 99 10/16/25 17:16 Oxygen Delivery Nasal Cannula 10/16/25 17:16 Oxygen Flow Rate 6 10/16/25 17:16 MDM MDM Narrative Medical decision making narrative: 65-year-old presenting with increasing shortness of breath, URI symptoms not improved after antibiotic course. On exam, she appears quite dyspneic, slightly diminished lung sounds, broad workup initiated, swabs are negative. Chest x-ray concerning for bilateral pneumonia, CT PE with ground-glass opacities bilaterally on my independent interpretation, radiologist called to let me know about the small PEs without signs of right heart strain; she also has tiny amount of pneumomediastinum which I suspect is from coughing. Findings discussed with patient, will admit her since she has new oxygen requirement and for her shortness of breath. Fluids given. Discussed with hospitalist for admission. Differential Diagnosis Differential Diagnosis: pneumonia, pulmonary embolism, ACS, CHF, COPD Lab Data 10/16/25 15:15 10/16/25 15:15 Labs: Lab Results 10/16/25 10/16/25 Range/Units 14:51 15:15 WBC 5.3 (4.5-10.0) K/mm3 RBC 2.69 L (4.2-5.4) M/mm3 Hgb 11.3 L (12.0-15.0) g/dL Hct 31.0 L (37.0-47.0) % MCV 115.2 H (80-100) fl MCH 42.0 H (26-34) pg MCHC 36.5 H (32-36) g/dl RDW 16.1 H (11.5-14.5) % Plt Count 150 (150-375) k/mm3 MPV 9.1 (7.4-10.4) fl Immature Gran % (Auto) 0.6 H (0-0.5) % Neut % (Auto) 79.0 H (45.5-73.1) % Lymph % (Auto) 14.3 L (18.3-44.2) % [place] % (Auto) 4.9 (2.6-8.5) % Eos % (Auto) 0.8 (0-4.4) % Baso % (Auto) 0.4 (0.2-1.2) % Lymph # (Auto) 0.75 L (0.9-3.2) K/mm3 [place] # (Auto) 0.3 (0.1-0.6) K/mm3 Eos # (Auto) 0.0 (0-0.3) K/mm3 Baso # (Auto) 0.0 (0.0-0.1) K/mm3 Abs Immat Gran (auto) 0.03 (0.00-0.031) K/mm3 Absolute Neuts (auto) 4.2 (1.3-6.7) K/mm3 Absolute Nucleated RBC 0.000 (0.0-0.012) K/mm3 Band Neutrophils % Not Reportable Nucleated RBC % 0.0 (0.0-0.2) % Platelet Estimate Adequate (Adequate) Hypochromasia Occasional Macrocytosis 1+ (NORMAL) Schistocytes None seen D-Dimer 1.63 H (<0.48) ug/mL Sodium 134 L (137-145) mmol/L Potassium 3.5 (3.4-5.0) mmol/L Chloride 99 (98-107) mmol/L Carbon Dioxide 31 H (22-30) mmol/L Anion Gap 4 (4-12) mmol/L BUN 24 H D (7-17) mg/dL Creatinine 0.91 (0.7-1.0) mg/dL Estim Creat Clear Calc 49 ml/min Estimated GFR > 60 (59 - ) Glucose 76 (65-110) mg/dL Calcium 9.8 (8.4-10.2) mg/dL Magnesium 2.0 (1.6-2.3) mg/dL Total Bilirubin 0.6 (0.2-1.3) mg/dL AST 44 H (14-36) U/L ALT 29 (6-35) U/L Alkaline Phosphatase 134 H (38-126) U/L NT-Pro-B Natriuret Pep 592 H (19.9-100) pg/mL Total Protein 6.7 (6.3-8.2) g/dL Albumin 3.7 (3.5-5.1) g/dL Influenza A (RT-PCR) Negative (Negative) Influenza B (RT-PCR) Negative (Negative) RSV (RT-PCR) Negative (Negative) SARS-CoV-2 RNA (RT-PCR) Negative (Negative) Group A Strep (PCR) Not detected (Negative) Imaging Data Radiologist's impression: ITS Impressions Chest X-Ray 10/16/25 15:16 Impression: Bilateral pneumonia Chest CTA 10/16/25 16:25 IMPRESSION: 1. Pulmonary emboli in subsegmental pulmonary arteries in the bilateral basilar lower lobes with relatively low clot burden and without evident right heart strain. Dr. French discussed these findings with Dr. Guadalupe at 4:40 PM. 2. Diffuse bilateral lung disease suspicious for atypical pneumonia with appearance similar to COVID pneumonia as manifest during the early stages of the pandemic. 3. Small amount of pneumomediastinum of indeterminate origin. Critical Care Time Critical Care Time Critical Care Time: Yes Indication: Low oxygen from pulmonary embolism, bilateral pneumonia Initial evaluation, discuss w/ involved parties, attempting to gather old records: 10 minutes Documenting medical record: 5 minutes Review of results (EKG's, labs, imaging): 5 minutes Serial repeat bedside evaluation: 10 minutes Discussing case with multiple memebers of the care team and consultants: 5 minutes Total Critical Care Time: 35 Discharge Plan Discharge Clinical Impression: Pulmonary embolism, Bilateral pneumonia Patient Disposition: Still a Patient Condition: Serious
[2025-10-16] MEDS: FUROSEMIDE INJ 40 MG/4 ML VIAL 20 MG IV PUSH (17:37)
[2025-10-16] MEDS: dexAMETHasone SOD PHOS INJ 10 MG/ML 1 ML VIAL IV PUSH (18:29)
--- NOTE | 2025-10-16 18:43 | WPCEDHO ---
ED Hand Off Checklist All vitals saved: IV Site documented: All med administrations documented: Triage Note Triage Note pt to ED from home with c/o SOB 10/16/25 14:38 and sore throat. pt states she was seen ant urgent care a week ago and put on antibiotics for an upper respiratory infection and finished them today. pt was seen at pcp today and was told to come here for low O2. pt states she is SOB and is having a hard time breathing. pt O2 is 94 upon arrival to room. Allergies Penicillins Allergy (Intermediate, Verified 10/16/25 16:08) Hives adhesive tape Adverse Reaction (Mild, Verified 10/16/25 16:08) RASH, ITCHING Family History (Last Reviewed 10/16/25 @ 12:55 by Kristin Vazquez [facility]) Mother Alzheimer disease Unknown Colon cancer Administered/Completed Medications Discontinued Medications Albuterol/Ipratropium (Ipratropium 0.5 Mg/Albuterol Sulfate 2.5 Mg (Base) Ampul.Neb 3 Ml) 3 ml INHALATION ONCE STA Stop: 10/16/25 14:52 Last Admin: 10/16/25 15:15 Dose: 3 ml Documented By: AIDA Apixaban (Apixaban 5 Mg Tablet) 10 mg PO ONCE STA Stop: 10/16/25 16:44 Last Admin: 10/16/25 17:14 Dose: 10 mg Documented By: DIANNE Azithromycin (Azithromycin 500 Mg Tablet) 500 mg PO ONCE STA Stop: 10/16/25 16:45 Last Admin: 10/16/25 17:08 Dose: 500 mg Documented By: DIANNE Dexamethasone Sodium Phosphate (Dexamethasone Sod Phos Inj 10 Mg/Ml 1 Ml Vial) 10 mg IV PUSH ONCE ONE Stop: 10/16/25 17:40 Last Admin: 10/16/25 18:29 Dose: 10 mg Documented By: ANDIE Furosemide (Furosemide Inj 40 Mg/4 Ml Vial) 20 mg IV PUSH ONCE ONE Stop: 10/16/25 17:23 Last Admin: 10/16/25 17:37 Dose: 20 mg Documented By: DA Ceftriaxone Sodium 1 gm/ (Sodium Chloride) 50 mls @ 100 mls/hr IVPB ONCE STA Stop: 10/16/25 17:13 Last Infusion: 10/16/25 17:42 Dose: Infused Documented By: Admin: 10/16/25 17:07 Dose: 100 mls/hr Documented By: DIANNE Ceftriaxone Sodium 1 gm/ (Sodium Chloride) 50 mls @ 100 mls/hr IVPB Q24H [facility] Last Admin: 10/16/25 17:21 Dose: Not Given Documented By: DA Non-Admin Reason: No Dose Required Sodium Chloride (Normal Saline Iv) 1,000 mls @ 999 mls/hr IV CONT .Q1H1M STA Stop: 10/16/25 18:02 Last Infusion: 10/16/25 18:34 Dose: Infused Documented By: Admin: 10/16/25 17:08 Dose: 999 mls/hr Documented By: DIANNE Notes 10/16/25 17:23 ED Hand Off by Latanya Gonzalez ED Hand Off Checklist All vitals saved: yes IV Site documented: yes All med administrations documented: yes Triage Note Triage Note pt to ED from home with c/o SOB 10/16/25 14:38 and sore throat. pt states she was seen ant urgent care a week ago and put on antibiotics for an upper respiratory infection and finished them today. pt was seen at pcp today and was told to come here for low O2. pt states she is SOB and is having a hard time breathing. pt O2 is 94 upon arrival to room. Allergies Penicillins Allergy (Intermediate, Verified 10/16/25 16:08) Hives adhesive tape Adverse Reaction (Mild, Verified 10/16/25 16:08) RASH, ITCHING Family History (Last Reviewed 10/16/25 @ 12:55 by Kristin Vazquez [facility]) Mother Alzheimer disease Unknown Colon cancer Active Medications including assessments/comments Sodium Chloride (Normal Saline Iv) 1,000 mls @ 999 mls/hr IV CONT .Q1H1M STA Stop: 10/16/25 18:02 Last Admin: 10/16/25 17:08 Dose: 999 mls/hr Documented By: DIANNE Infusion/Titration Document 10/16/25 17:08 DIANNE (Rec: 10/16/25 17:08 DIANNE [id number]) Intake IV Site Peripheral Access Left Antecubital Container Volume 1,000 Waste Amount 0 Dosing Infusion Rate 999 Cumulative Dose Not Applicable Increase/Decrease Started Elapsed Time Elapsed Time ( 0m minutes) Administered/Completed Medications Discontinued Medications Albuterol/Ipratropium (Ipratropium 0.5 Mg/Albuterol Sulfate 2.5 Mg (Base) Ampul.Neb 3 Ml) 3 ml INHALATION ONCE STA Stop: 10/16/25 14:52 Last Admin: 10/16/25 15:15 Dose: 3 ml Documented By: AIDA Apixaban (Apixaban 5 Mg Tablet) 10 mg PO ONCE STA Stop: 10/16/25 16:44 Last Admin: 10/16/25 17:14 Dose: 10 mg Documented By: DIANNE Azithromycin (Azithromycin 500 Mg Tablet) 500 mg PO ONCE STA Stop: 10/16/25 16:45 Last Admin: 10/16/25 17:08 Dose: 500 mg Documented By: DIANNE Ceftriaxone Sodium 1 gm/ (Sodium Chloride) 50 mls @ 100 mls/hr IVPB ONCE STA Stop: 10/16/25 17:13 Last Admin: 10/16/25 17:07 Dose: 100 mls/hr Documented By: DIANNE Ceftriaxone Sodium 1 gm/ (Sodium Chloride) 50 mls @ 100 mls/hr IVPB Q24H [facility] Last Admin: 10/16/25 17:21 Dose: Not Given Documented By: DA Non-Admin Reason: No Dose Required Interventions/Assessments IV / Saline Lock, Insert Start: 10/16/25 14:27 Freq: Status: Active Protocol: Document 10/16/25 14:57 LDD (Rec: 10/16/25 14:57 LDD [id number]) IV Assessment Peripheral Access Left Antecubital IV Catheter Access Initiated IV Insertion Date 10/16/25 IV Insertion Time 14:57 Catheter Gauge 18 IV Insertion 1 Attempts Ultrasound Used for No Placement IV Site Assessment WNL IV Care and WNL Maintenance PA: Cardiovascular Assessment Start: 10/16/25 14:27 Freq: Status: Active Protocol: Document 10/16/25 14:45 LDD (Rec: 10/16/25 14:46 LDD [id number]) Cardiovascular Assessment Cardiovascular None Symptoms Skin Description Normal Color Heart Sounds Normal Jugular Vein None Distention PA: Respiratory Assessment Start: 10/16/25 14:27 Freq: Status: Active Protocol: Document 10/16/25 14:45 LDD (Rec: 10/16/25 14:46 LDD [id number]) Respiratory Assessment Symptoms Congestion,Cough,Shortness of Breath at Rest,Shortness of Breath With Exertion Effort Normal Pattern Regular Depth Normal Chest Expansion Symmetrical Cough Description Dry Sputum Amount None Oxygen Delivery Oxygen Delivery Room Air Pulse Oximetry (90- 97 100) Last Vital Signs Temperature 98.3 F 10/16/25 14:38 Pulse Rate 89 10/16/25 16:46 Respiratory Rate 22 H 10/16/25 16:46 Pulse Oximetry 99 10/16/25 17:16 Blood Pressure 101/64 10/16/25 16:46 Blood Pressure Mean 76 10/16/25 16:46 Oxygen Delivery Nasal Cannula 10/16/25 17:16 Oxygen Flow Rate 6 10/16/25 17:16 Weight 70.4 kg 10/16/25 14:38 Last Result - Abnormals Only RBC 2.69 M/mm3 (4.2-5.4) L 10/16/25 15:15 Hgb 11.3 g/dL (12.0-15.0) L 10/16/25 15:15 Hct 31.0 % (37.0-47.0) L 10/16/25 15:15 MCV 115.2 fl (80-100) H 10/16/25 15:15 MCH 42.0 pg (26-34) H 10/16/25 15:15 MCHC 36.5 g/dl (32-36) H 10/16/25 15:15 RDW 16.1 % (11.5-14.5) H 10/16/25 15:15 Immature Gran % (Auto) 0.6 % (0-0.5) H 10/16/25 15:15 Neut % (Auto) 79.0 % (45.5-73.1) H 10/16/25 15:15 Lymph % (Auto) 14.3 % (18.3-44.2) L 10/16/25 15:15 Lymph # (Auto) 0.75 K/mm3 (0.9-3.2) L 10/16/25 15:15 D-Dimer 1.63 ug/mL (<0.48) H 10/16/25 15:15 Sodium 134 mmol/L (137-145) L 10/16/25 15:15 Carbon Dioxide 31 mmol/L (22-30) H 10/16/25 15:15 BUN 24 mg/dL (7-17) H D 10/16/25 15:15 AST 44 U/L (14-36) H 10/16/25 15:15 Alkaline Phosphatase 134 U/L (38-126) H 10/16/25 15:15 NT-Pro-B Natriuret Pep 592 pg/mL (19.9-100) H 10/16/25 15:15 Most Recent Suicide Severity Rating Suicide Severity Rating NO RISK INDICATED 10/16/25 14:38 Initialized on 10/16/25 17:23 - END OF NOTE Interventions/Assessments IV / Saline Lock, Insert Start: 10/16/25 14:27 Freq: Status: Active Protocol: Document 10/16/25 14:57 LDD (Rec: 10/16/25 14:57 LDD [id number]) IV Assessment Peripheral Access Left Antecubital IV Catheter Access Initiated IV Insertion Date 10/16/25 IV Insertion Time 14:57 Catheter Gauge 18 IV Insertion 1 Attempts Ultrasound Used for No Placement IV Site Assessment WNL IV Care and WNL Maintenance PA: Cardiovascular Assessment Start: 10/16/25 14:27 Freq: Status: Active Protocol: Document 10/16/25 14:45 LDD (Rec: 10/16/25 14:46 LDD [id number]) Cardiovascular Assessment Cardiovascular None Symptoms Skin Description Normal Color Heart Sounds Normal Jugular Vein None Distention PA: Respiratory Assessment Start: 10/16/25 14:27 Freq: Status: Active Protocol: Document 10/16/25 14:45 LDD (Rec: 10/16/25 14:46 LDD [id number]) Respiratory Assessment Symptoms Congestion,Cough,Shortness of Breath at Rest,Shortness of Breath With Exertion Effort Normal Pattern Regular Depth Normal Chest Expansion Symmetrical Cough Description Dry Sputum Amount None Oxygen Delivery Oxygen Delivery Room Air Pulse Oximetry (90- 97 100 %) Last Vital Signs Temperature 98.3 F 10/16/25 14:38 Pulse Rate 82 10/16/25 18:32 Respiratory Rate 35 H 10/16/25 18:32 Pulse Oximetry 98 10/16/25 18:32 Blood Pressure 93/66 L 10/16/25 18:32 Blood Pressure Mean 74 10/16/25 18:32 Oxygen Delivery Nasal Cannula 10/16/25 17:16 Oxygen Flow Rate 6 10/16/25 17:16 Weight 70.4 kg 10/16/25 14:38 Last Result - Abnormals Only RBC 2.69 M/mm3 (4.2-5.4) L 10/16/25 15:15 Hgb 11.3 g/dL (12.0-15.0) L 10/16/25 15:15 Hct 31.0 % (37.0-47.0) L 10/16/25 15:15 MCV 115.2 fl (80-100) H 10/16/25 15:15 MCH 42.0 pg (26-34) H 10/16/25 15:15 MCHC 36.5 g/dl (32-36) H 10/16/25 15:15 RDW 16.1 % (11.5-14.5) H 10/16/25 15:15 Immature Gran % (Auto) 0.6 % (0-0.5) H 10/16/25 15:15 Neut % (Auto) 79.0 % (45.5-73.1) H 10/16/25 15:15 Lymph % (Auto) 14.3 % (18.3-44.2) L 10/16/25 15:15 Lymph # (Auto) 0.75 K/mm3 (0.9-3.2) L 10/16/25 15:15 D-Dimer 1.63 ug/mL (<0.48) H 10/16/25 15:15 Sodium 134 mmol/L (137-145) L 10/16/25 15:15 Carbon Dioxide 31 mmol/L (22-30) H 10/16/25 15:15 BUN 24 mg/dL (7-17) H D 10/16/25 15:15 AST 44 U/L (14-36) H 10/16/25 15:15 Alkaline Phosphatase 134 U/L (38-126) H 10/16/25 15:15 NT-Pro-B Natriuret Pep 592 pg/mL (19.9-100) H 10/16/25 15:15 Most Recent Suicide Severity Rating Suicide Severity Rating NO RISK INDICATED 10/16/25 14:38
--- NOTE | 2025-10-16 19:20 | ADMGEN ---
This patient, Yamileth Sims, was admitted to IMU Room 213-01. Patient/family oriented to hospital policies and general routines including ID bracelet, bed and alarms, visiting hours, pain management, procedures, bathroom and other care routines, personal items, smoking policy, room service/diet, and visiting hours. Information on how to activate the Rapid Response Team has been discussed. Patient/Family are encouraged to report perceived risks to care and to ask questions if they do not understand what they are told or what they should do.
[2025-10-16] MEDS: PRAVASTATIN SODIUM 20 MG TABLET 40 MG BY MOUTH (20:13)
[2025-10-16] MEDS: GABAPENTIN 300 MG CAPSULE 600 MG PO (20:13)
[2025-10-16] MEDS: guaiFENesin 12 HR 600 MG TABCR 1200 MG PO (20:14)
[2025-10-16] MEDS: CEFEPIME 2 GM in SODIUM CHLORIDE 0.9% IV 50 ML 100 ML IVPB (20:16)
[2025-10-16 21:29] LABS: MRSA (PCR) NOT DETECTED (NOT DETECTE)
[2025-10-16] MEDS: MIDODRINE HCL 2.5 MG TABLET 5 MG PO (23:12)
[2025-10-16] MEDS: PROCHLORPERAZINE MALEATE 5 MG TABLET 10 MG PO (23:12)
[2025-10-16] MEDS: AMITRIPTYLINE HCL 25 MG TABLET 50 MG PO (23:12)
[2025-10-16] MEDS: PHENOL/SOD PHENO SPRAY CHERRY (*BKC) 1 SPRAY MUCOUS MEM (23:23)
--- NOTE | 2025-10-16 23:33 | PHAR ---
HOME MEDICATION: vibegron (Gemtesa) 75 mg tablet, Take 1 tablet by mouth daily, verified by pharmacy 10/16@2088 [place]
[2025-10-17] VITALS (38 sets, daily range): BP systolic 88–150; BP diastolic 41–130; PULSE 73–106; RESP 19–42; TEMP 36.4–37.9; O2SAT 76–100
[2025-10-17 00:18] LABS: Alveolar/Arterial O2 Gradient 136.0 mmHg; Fractional Inspired Oxygen 35 %; HCO3 ABG 23.4 mEq/l (22.0-26.0); Oxygen Content ABG 14.2 %vol (16.0-22.0); Oxygen Saturation ABG 96.5 % (95.0-100.0); PCO2 ABG 31.3 mmHg (35.0-45.0); PO2 ABG 77.2 mmHg (80.0-100.0); PO2 FiO2 Ratio Arterial Blood 2.21 %
[2025-10-17 00:22] LABS: Liters per Minute 30.0 LPM; Modified Allen's Test Pass; Site Drawn LEFT RADIAL
[2025-10-17] MEDS: SODIUM CHLORIDE 0.9% IV 1,000 ML 999 ML IV CONT ×3 (01:26→02:30)
[2025-10-17] MEDS: HYDROCORTISONE SODIUM SUCCINATE 100 MG/2 ML VIAL 50 MG IV PUSH ×2 (01:32→04:57)
[2025-10-17] MEDS: HEPARIN SOD/D5W 100 UNITS/ML 25,000 UNITS/250 ML BAG 8 UNITS IV CONT (01:40)
[2025-10-17 01:49] LABS: Hematocrit 26.3 % (37.0-47.0); Hemoglobin 9.1 g/dL (12.0-15.0); Immature Granulocyte Percent A 1.2 % (0-0.5); Lymphocytes Absolute Auto 0.26 K/mm3 (0.9-3.2); Mean Corpuscular HGB Conc 34.6 g/dl (32-36); Mean Corpuscular Hemoglobin 41.2 pg (26-34); Mean Corpuscular Volume 119.0 fl (80-100); Nucleated Red Blood Cells Absolute Auto 0.000 K/mm3 (0.0-0.012); Nucleated Red Blood Cells Perc 0.0 % (0.0-0.2); Platelet Count Result 102 k/mm3 (150-375); Red Blood Count 2.21 M/mm3 (4.2-5.4); White Blood Count 3.3 K/mm3 (4.5-10.0)
[2025-10-17 02:00] LABS: INR 1.4; Prothrombin Time 17.2 Seconds (11.1-14.7)
[2025-10-17 02:01] LABS: Partial Thromboplastin Time 21.8 Seconds (22.3-36.8)
[2025-10-17 02:02] LABS: Troponin I < 0.012 ng/mL (0.000-0.034)
[2025-10-17 02:17] LABS: Anisocytosis 1+; Macrocytosis 1+ (NORMAL)
[2025-10-17 02:18] LABS: Schistocytes None Seen
[2025-10-17] MEDS: SODIUM CHLORIDE 0.9% IV 200 ML 999 ML IV CONT (02:30)
[2025-10-17] MEDS: VANCOMYCIN 1,750 MG/NS 500 ML 1,750 MG/500 ML BAG 250 MG IVPB (02:55)
[2025-10-17] MEDS: PHENOL/SOD PHENO SPRAY CHERRY (*BKC) 1 SPRAY MUCOUS MEM ×2 (02:55→22:00)
[2025-10-17] MEDS: LEVOTHYROXINE SODIUM 50 MCG TABLET PO (04:58)
[2025-10-17] MEDS: MEROPENEM 1 GM in SODIUM CHLORIDE 0.9% IV 100 ML 200 ML IVPB ×2 (04:58→17:22)
[2025-10-17 08:02] LABS: Hematocrit 27.3 % (37.0-47.0); Hemoglobin 9.4 g/dL (12.0-15.0); Immature Platelet Fraction Pct 1.9 % (0.9-11.2); Mean Corpuscular HGB Conc 34.4 g/dl (32-36); Mean Corpuscular Hemoglobin 40.9 pg (26-34); Mean Corpuscular Volume 118.7 fl (80-100); Platelet Count Result 122 k/mm3 (150-375); Red Blood Count 2.30 M/mm3 (4.2-5.4); White Blood Count 3.4 K/mm3 (4.5-10.0)
[2025-10-17] MEDS: FUROSEMIDE INJ 40 MG/4 ML VIAL 20 MG IV PUSH (08:21)
[2025-10-17 08:24] LABS: Band Neutrophils Percent 10 % (0-6); Lymphocytes Absolute Manual 0.06 K/mm3 (1.1-4.5); Lymphocytes Percent Manual 2 % (18-44); Monocytes Absolute Manual 0.03 K/mm3 (0.1-0.90); Monocytes Percent Manual 1 % (3-9); Neutrophils Absolute Manual 3.29 K/mm3 (1.3-6.7); Neutrophils Percent Manual 87 % (46-73); Total Cells Counted 100
[2025-10-17 08:25] LABS: Anisocytosis Occasional; Polychromasia Occasional
[2025-10-17 08:26] LABS: Hypochromasia Occasional; Ovalocytes 1+; Schistocytes Occasional
[2025-10-17 08:28] LABS: Partial Thromboplastin Time 54.8 Seconds (22.3-36.8)
[2025-10-17 08:41] LABS: Anion Gap 0 mmol/L (4-12); Blood Urea Nitrogen 18 mg/dL (7-17); Calcium 8.0 mg/dL (8.4-10.2); Carbon Dioxide 26 mmol/L (22-30); Chloride 106 mmol/L (98-107); Estimated CRCL calculation 61 ml/min; Estimated Glomerular Filt Rate > 60; Glucose 127 mg/dL (65-110); Potassium 3.9 mmol/L (3.4-5.0); Sodium 132 mmol/L (137-145)
[2025-10-17 08:49] LABS: Add Urine Microscopic? YES; Appearance Urine Cloudy (Clear); Glucose Urine UA Negative (Negative); Leukocyte Esterase Ur Negative LEU/UL (Negative); Need Manual Microscopic Reviewed; Nitrate Urine Negative (Negative); Specific Grav Ur 1.027 (1.001-1.035)
[2025-10-17 08:53] LABS: Troponin I < 0.012 ng/mL (0.000-0.034)
--- NOTE | 2025-10-17 09:17 | WPDCNINT2 ---
Assessment and Plan Assessment and plan (1) Acute respiratory failure: Code(s): J96.00 - Acute respiratory failure, unspecified whether with hypoxia or hypercapnia Status: Acute Assessment and Plan: Acute hypoxic respiratory failure likely related to pneumonia/pneumonitis, pulmonary embolism -recently treated for pneumonia as outpatient. -10/17: chest x-ray this morning showed mild worsening of diffuse severe pneumonitis -patient started on meropenem and vancomycin (10/16) -will start bronchodilators and Pulmicort -discussed with patient and daughter at bedside, if her conditions worsens she is agreeable for intubation -will diurese her today 10/16: Chest CTA MPRESSION: 1. Pulmonary emboli in subsegmental pulmonary arteries in the bilateral basilar lower lobes with relatively low clot burden and without evident right heart strain. Dr. French discussed these findings with Dr. Guadalupe at 4:40 PM. 2. Diffuse bilateral lung disease suspicious for atypical pneumonia with appearance similar to COVID pneumonia as manifest during the early stages of the pandemic. 3. Small amount of pneumomediastinum of indeterminate origin (2) Pneumonia: Code(s): J18.9 - Pneumonia, unspecified organism Status: Acute Assessment and Plan: As above (3) Pulmonary embolism: Code(s): I26.99 - Other pulmonary embolism without acute cor pulmonale Status: Acute Assessment and Plan: Continue heparin infusion, CTA PE protocol showed subsegmental pulmonary embolism in the bibasal lower lobes with low clot burden and without evidence of right heart strain. (4) Breast cancer: Code(s): C50.919 - Malignant neoplasm of unspecified site of unspecified female breast Status: Acute Assessment and Plan: Patient with breast cancer takes abemaciclib, anastrozole, (5) Hx of supraventricular tachycardia: Code(s): Z86.79 - Personal history of other diseases of the circulatory system Status: Acute Assessment and Plan: Patient on Coreg, currently on hold. Heart rates are stable, regular rate and rhythm -continue to monitor (6) Hyperlipidemia: Code(s): E78.5 - Hyperlipidemia, unspecified Status: Acute Assessment and Plan: Continue pravastatin (7) Hypertension: Code(s): I10 - Essential (primary) hypertension Status: Acute Assessment and Plan: Blood pressures have been stable, continue to monitor (8) Pneumomediastinum: Code(s): J98.2 - Interstitial emphysema Status: Acute Assessment and Plan: Likely related to coughing -patient on Mucinex. -will continue to monitor VS chest x-ray Plan DVT prophylaxis: Heparin infusion Stress ulcer prophylaxis: Protonix (patient does take omeprazole at home) Nutrition: Full liquid diet Code Status: Full code Critical Care Time Spent: 48 minutes Discuss with daughter Sirisha, son Yasir, and the patient and updated them with patient's condition and plan of care. Also discussed that if her respiratory status worsens she may require intubation for which there agreeable. Will have speech the patient for aspiration Due to a high probability of clinically significant, life threatening deterioration, the patient required my highest level of preparedness to intervene emergently and I personally spent this critical care time directly and personally managing the patient. This critical care time included obtaining a history; examining the patient; pulse oximetry; ordering and review of studies; arranging urgent treatment with development of a management plan; evaluation of patient's response to treatment; frequent reassessment; and discussions with other providers. It was exclusive of separately billable procedures and treating other patients and teaching time. Please see Assessment and Plan section and the rest of the note for further information on patient assessment and treatment This dictation may have been done utilizing a voice recognition system. Attempts have been made to correct errors. However, there may be uncorrected grammatical, spelling, and recognitions errors present. Developer Programmer Analyst Consult Note Consult date: 10/17/25 Reason for consult: Acute respiratory failure, pneumonia/pneumonitis, pulmonary embolism, presented to the ED on 10/16/2025 with complaints of cough, shortness of breath HPI: Yamileth Sims is a 65 year old female with past medical history of breast cancer on oral chemotherapy, her oncologist is and [facility], history of chronic low back pain, peripheral neuropathy with drop foot, history of SVT, history of tongue cancer, and anxiety, depression, ADHD, grade 2 diastolic dysfunction, mitral valve prolapse, hyperlipidemia presented to the ED at [facility] on 10/16/2025 with complains of cough, shortness of breath. In the ER she stated her shortness of breath was worsening and she was recently diagnosed with possible pneumonia and started on antibiotics. Her upper respiratory tract infection symptoms did not improve with the antibiotics. Chest x-ray was concerning for bilateral pneumonia. CT PE protocol showed ground-glass to PCG bilaterally with segmental PEs without signs of right-sided heart strain, tiny amount of pneumomediastinum off indeterminate origin, likely due to coughing. Patient was admitted to intermediate Unit, the hospitalist team call me overnight since oxygen requirements increasing, and patient was placed on Airvo. Patient was transferred to the ICU for further management. Labs on admission: WBC 5.3, hemoglobin 11.3, platelets 150, sodium 134, potassium 3.5, CO2 31, BUN 24, creatinine 0.91, blood sugars 76. D-dimer was 1.63, lactic acid 1.2, LFTs within normal limits, proBNP was 592, troponins < 0.012 x 2. UA UA was unremarkable for UTI. Influenza, RSV and SARS-CoV-2 PCR were negative Patient was started on azithromycin vancomycin and meropenem Patient seen and examined this morning in the ICU, remains on airflow, 30 L flow rate, 35% FiO2, is awake, alert, oriented, nonfocal. States he feels slightly better since she came to the hospital. O2 sats have been adequate, she does get tachypneic when talking. Hemodynamically stable, urine output has been adequate, afebrile. Denies any tobacco or illicit drug use, she does have a glass of wine with dinner every night Review of Systems Review of Systems: All systems reviewed & are unremarkable except as noted in HPI and below PMFSH Past Medical History Medical History (Updated 10/17/25 @ 09:41 by Derik Montaño MD) Breast cancer COVID-19 Cervicalgia Chronic low back pain Back pain associated with peripheral numbness Screening for colon cancer Screening for breast cancer Postmenopausal SVT (supraventricular tachycardia) 2010 History of tongue cancer Anxiety and depression Attention deficit hyperactivity disorder (ADHD), combined type Grade II diastolic dysfunction Mitral valve prolapse Other and unspecified hyperlipidemia Primary insomnia Surgical History Surgical History History of laparoscopic cholecystectomy 05/09/20 H/O rectal sphincterotomy Endometriosis determined by laparoscopy History of tonsillectomy H/O section S/P bunionectomy History of carpal tunnel release Family History Family History (Updated 10/16/25 @ 20:09 by Bindu Bonilla RN) Mother Alzheimer disease Unknown Colon cancer Social History Social History Smoking status: Never smoker Second hand tobacco smoke exposure: No Alcohol intake: current Alcohol use details: a glass of wine every night with dinner Substance use: never Substance use type: does not use Lack of Transportation: No Lack of Food: Never True Current Housing: I Have Housing Concerned About Future Housing: No Difficulty Paying Gas/Electric Bills: No Difficulty Paying for Meds: No Currently Unemployed: No Education: Master's Degree or Higher Difficulty w/ Childcare or Family Care: No Living arrangements: with family Occupation/Education: occupation Gender identity (if verbalized by the patient): Female Sexual Orientation (if Verbalized by the Patient): Straight or Heterosexual Spiritual care concerns: Yes Agree to blood products: Yes Meds Home Medications and Allergies Home Medications ?Medication ?Instructions ?Recorded ?Confirmed ?Type anastrozole 1 mg tablet 1 mg PO DAILY #1 tablet 03/01/23 10/16/25 Rx prochlorperazine maleate 10 mg 10 mg PO Q8H PRN nausea and 03/01/23 10/16/25 Rx tablet vomiting #1 tablet gabapentin 300 mg capsule 300 mg PO BID 10/04/23 10/16/25 History vibegron 75 mg tablet (Gemtesa) 75 mg PO DAILY 10/04/23 10/16/25 History dicyclomine 20 mg tablet 20 mg PO QID PRN abdominal pain 04/10/24 10/16/25 History abemaciclib 150 mg tablet 150 mg PO BID 10/15/24 10/16/25 History (Verzenio) carvedilol phosphate 40 mg See Rx Instructions .Route 01/31/25 10/16/25 Rx capsule,[id number] multiphase .COMPLEX #90 caps ondansetron 4 mg disintegrating 4 mg PO Q8H PRN nausea and 04/02/25 10/16/25 Rx tablet vomiting #7 tabs biotin 10,000 mcg capsule 10,000 mcg PO DAILY 04/22/25 10/16/25 History calcium carbonate 600 mg PO BID 04/22/25 10/16/25 History multivitamin (Daily Multi-Vitamin 1 tablet PO DAILY 04/22/25 10/16/25 History tablet) vitamin B complex 1 tablet PO DAILY 04/22/25 10/16/25 History pravastatin 40 mg tablet See Rx Instructions .Route 08/27/25 10/16/25 Rx .COMPLEX #90 tabs omeprazole 20 mg capsule,delayed See Rx Instructions .Route 10/02/25 10/16/25 Rx release .COMPLEX #90 caps dextroamphetamine-amphetamine 15 15 mg PO BID #60 tabs 10/09/25 10/16/25 Rx mg tablet (Adderall) duloxetine 60 mg capsule,delayed See Rx Instructions .Route 10/09/25 10/16/25 Rx release .COMPLEX #90 caps amitriptyline 50 mg tablet 50 mg PO QHS 10/16/25 10/16/25 History levothyroxine 50 mcg tablet 50 mcg PO DAILY 10/16/25 10/16/25 History Allergies Allergy/AdvReac Type Severity Reaction Status Date / Time Penicillins Allergy Intermediate Hives Verified 10/16/25 20:08 adhesive tape AdvReac Mild RASH, Verified 10/16/25 20:08 ITCHING Vital Signs Vital Signs - 24 hr 10/16/25 14:38 10/16/25 14:45 10/16/25 14:46 Temperature 98.3 F Pulse Rate 86 82 Respiratory Rate 19 17 Blood Pressure 109/77 100/52 L Pulse Oximetry 94 97 96 Oxygen Delivery Room Air Room Air Oxygen Flow Rate Fraction of Inspired Oxygen 10/16/25 15:15 10/16/25 15:20 10/16/25 15:25 Temperature Pulse Rate 85 Respiratory Rate 20 Blood Pressure Pulse Oximetry 88 L 87 L Oxygen Delivery Nasal Cannula Room Air Oxygen Flow Rate 4 Fraction of Inspired Oxygen 10/16/25 15:25 10/16/25 15:26 10/16/25 16:46 Temperature Pulse Rate 85 89 Respiratory Rate 20 22 H Blood Pressure 101/64 Pulse Oximetry 96 95 Oxygen Delivery Nasal Cannula Oxygen Flow Rate 4 Fraction of Inspired Oxygen 10/16/25 16:47 10/16/25 17:16 10/16/25 17:38 Temperature Pulse Rate 89 81 Respiratory Rate 31 H 30 H Blood Pressure 127/86 Pulse Oximetry 94 99 98 Oxygen Delivery Nasal Cannula Oxygen Flow Rate 6 Fraction of Inspired Oxygen 10/16/25 17:55 10/16/25 18:00 10/16/25 18:01 Temperature Pulse Rate 65 61 Respiratory Rate 34 H 28 H 27 H Blood Pressure 127/73 Pulse Oximetry Oxygen Delivery Oxygen Flow Rate Fraction of Inspired Oxygen 10/16/25 18:15 10/16/25 18:16 10/16/25 18:30 Temperature Pulse Rate 81 82 85 Respiratory Rate 33 H 32 H 30 H Blood Pressure 94/62 L Pulse Oximetry 98 Oxygen Delivery Oxygen Flow Rate Fraction of Inspired Oxygen 10/16/25 18:31 10/16/25 18:32 10/16/25 19:11 Temperature Pulse Rate 83 82 88 Respiratory Rate 32 H 35 H 25 H Blood Pressure 87/47 L 93/66 L 101/59 L Pulse Oximetry 98 96 Oxygen Delivery Oxygen Flow Rate Fraction of Inspired Oxygen 10/16/25 19:20 10/16/25 20:00 10/16/25 20:00 Temperature 98.8 F Pulse Rate 81 79 Respiratory Rate 25 H Blood Pressure 95/61 L Pulse Oximetry 99 99 Oxygen Delivery High Flow Nasal Cannula Oxygen Flow Rate 6 Fraction of Inspired Oxygen 10/16/25 23:04 10/16/25 23:40 10/17/25 00:00 Temperature 98.8 F Pulse Rate 86 86 Respiratory Rate 24 H 26 H Blood Pressure 83/47 L Pulse Oximetry 97 97 97 Oxygen Delivery High Flow Therapy with Na High Flow Therapy with Na Oxygen Flow Rate 30 30 Fraction of Inspired Oxygen 35 35 10/17/25 00:00 10/17/25 00:00 10/17/25 00:38 Temperature Pulse Rate 79 86 85 Respiratory Rate 33 H Blood Pressure 150/130 H Pulse Oximetry 96 Oxygen Delivery Oxygen Flow Rate Fraction of Inspired Oxygen 10/17/25 00:52 10/17/25 01:47 10/17/25 02:00 Temperature 98.5 F 98.6 F Pulse Rate 81 87 85 Respiratory Rate 38 H 22 H 21 H Blood Pressure 97/62 L 91/59 L 90/59 L Pulse Oximetry 100 100 100 Oxygen Delivery Oxygen Flow Rate Fraction of Inspired Oxygen 10/17/25 02:00 10/17/25 03:00 10/17/25 03:26 Temperature 97.7 F 97.7 F Pulse Rate 85 86 79 Respiratory Rate 22 H 21 H Blood Pressure 88/61 L 94/61 L Pulse Oximetry 100 100 Oxygen Delivery Oxygen Flow Rate Fraction of Inspired Oxygen 10/17/25 03:53 10/17/25 04:00 10/17/25 04:00 Temperature 97.6 F Pulse Rate 79 81 81 Respiratory Rate 21 H 20 Blood Pressure 98/62 L Pulse Oximetry 100 98 Oxygen Delivery High Flow Therapy with Na Oxygen Flow Rate 30 Fraction of Inspired Oxygen 35 10/17/25 05:00 10/17/25 06:00 10/17/25 06:00 Temperature 97.6 F 97.6 F Pulse Rate 79 82 79 Respiratory Rate 24 H 20 Blood Pressure 107/56 L 105/73 Pulse Oximetry 100 93 Oxygen Delivery Oxygen Flow Rate Fraction of Inspired Oxygen 10/17/25 07:00 10/17/25 08:00 Temperature 97.7 F 98.1 F Pulse Rate 73 81 Respiratory Rate 21 H 27 H Blood Pressure 114/70 117/74 Pulse Oximetry 99 100 Oxygen Delivery Oxygen Flow Rate Fraction of Inspired Oxygen Exam Narrative: General: Pleasant female in no acute distress HEENT:? Pupils equal and reactive, sclera is clear Neck:? Supple Respiratory:? Coarse breath sounds diffusely, no wheezing, decreased at base Cardiac:? S1-S2 is normal, regular rate and rhythm Abdomen:? Soft, nontender, nondistended, hypoactive bowel Extremities:? Pitting edema bilateral lower extremities Neuro:? Patient is awake, alert, oriented, nonfocal, able to answer questions and follows simple command Skin:? No skin lesions noted Psych:? Normal mentation and affect Results Labs 10/17/25 07:50 10/17/25 07:50 Labs: Short CBC 10/16/25 10/17/25 10/17/25 Range/Units 15:15 01:29 07:50 WBC 5.3 3.3 L 3.4 L (4.5-10.0) K/mm3 Hgb 11.3 L 9.1 L 9.4 L (12.0-15.0) g/dL Hct 31.0 L 26.3 L 27.3 L (37.0-47.0) % Plt Count 150 102 L 122 L (150-375) k/mm3 BMP 10/16/25 10/17/25 15:15 07:50 Sodium 134 L 132 L Potassium 3.5 3.9 Chloride 99 106 Carbon Dioxide 31 H 26 BUN 24 H D 18 H Creatinine 0.91 0.73 Glucose 76 127 H Calcium 9.8 8.0 L Cardiac Enzymes 10/17/25 10/17/25 Range/Units 01:29 07:50 Troponin I < 0.012 < 0.012 (0.000-0.034) ng/mL Liver Function 10/16/25 Range/Units 15:15 Total Bilirubin 0.6 (0.2-1.3) mg/dL AST 44 H (14-36) U/L ALT 29 (6-35) U/L Alkaline Phosphatase 134 H (38-126) U/L Albumin 3.7 (3.5-5.1) g/dL Urine 10/17/25 Range/Units 07:46 Urine Color Yellow (Yellow) Urine Appearance Cloudy H (Clear) Urine pH 5.0 (5.0-9.0) Ur Specific [place] 1.027 (1.001-1.035) Urine Protein Trace (Negative) mg/dL Urine Glucose (UA) Negative (Negative) mg/dL Quality VTE Prophylaxis VTE prophylaxis: pharmacologic ordered Hospitalist MIPS Advance Care Plan I have confirmed that the patient's Advanced Care Plan is present, code status is documented, or surrogate decision maker is listed in patient medical record.: Yes Medication Reconciliation I have utilized all available resources to obtain, update and review the patients current medications (includes all prescriptions, OTC, herbals, cannabis, and nutritional supplements).: Yes
--- NOTE | 2025-10-17 11:38 | PCSTNOTE ---
Please refer to the Bedside Swallow Evaluation in the EMR. Please note, silent aspiration cannot be ruled out at bedside. Pt was seen for a bedside swallow evaluation; pt has a h/o tongue cancer many years ago, but had no residual difficulty with swallowing until recently, her family reports some coughing with meals. Treatment for the tongue cancer consisted of chemo and a resection, where a portion was removed from under the tongue. Pt and her daughter denied radiation for her tongue CA. She did receive radiation for her more recent breast cancer. Pt was admitted with acute respiratory failure and is currently on Airvo. Before this admission, pt did not have any O2 needs. Pt was sleepy but easily awoke and followed commands; initially, her vocal quality was raspy but improved to a clear vocal quality after the ice chip trials. Pt was positioned upright in the bed for the evaluation; labial seal and ROM were good; lingual ROM was limited to the L, but otherwise WFL. Intelligibility is good. She was tested with multiple trials of ice chips & pudding via a spoon, crackers via her hand, as well as thin liquids (water) via a cup, then a straw. The oral stages were WFL; no leakage or pocketing was noted. During the pharyngeal stage, the timing of the swallow appeared intact, and laryngeal elevation appeared adequate. No overt s/s of aspiration were exhibited with the ice chips, pudding, cracker, and cup sips of water. Delayed cough/weak throat clearing was noted after a trial of straw drinking thin liquids. Due to this inconsistent but overt finding, the family's report of coughing during meals, and the dx of acute respiratory failure, an MBS is recommended to further assess swallow ability, determine a safe diet as well as an appropriate POC. Recommendation: an MBS to r/o dysphagia. Full liquids are allowed until the MBS but pt must be positioned upright, take only small sips, and no straw drinking. If difficulty is noted with full liquids taken via small sips, make NPO until MBS; Per RN, pt cannot go for MBS until she is off Airvo
[2025-10-17] MEDS: PANTOPRAZOLE SODIUM IV 40 MG VIAL IV PUSH (12:17)
[2025-10-17] MEDS: PRAVASTATIN SODIUM 20 MG TABLET 40 MG BY MOUTH (12:17)
[2025-10-17] MEDS: guaiFENesin 12 HR 600 MG TABCR 1200 MG PO (12:18)
[2025-10-17] MEDS: BUDESONIDE RESPULE NEB 0.5 MG/2 ML AMP INHALATION ×2 (14:15→20:09)
[2025-10-17] MEDS: IPRATROPIUM 0.5 MG/ALBUTEROL SULFATE 2.5 MG (BASE) AMPUL.NEB 3 ML INHALATION ×2 (14:15→20:10)
[2025-10-17 14:18] LABS: Partial Thromboplastin Time 54.0 Seconds (22.3-36.8)
[2025-10-17] MEDS: DOXYCYCLINE IV 100 MG in SODIUM CHLORIDE 0.9% IV 100 ML IVPB (20:47)
[2025-10-17 21:09] LABS: Partial Thromboplastin Time 162.9 Seconds (22.3-36.8)
[2025-10-17 21:17] LABS: Alveolar/Arterial O2 Gradient 516.5 mmHg; Carboxyhemoglobin 1.0 % THb (0-2.0); Fractional Inspired Oxygen 92 %; HCO3 ABG 21.0 mEq/l (22.0-26.0); Methemoglobin ABG 0.0 %THb (0-1.5); Oxygen Content ABG 15.1 %vol (16.0-22.0); Oxygen Saturation ABG 98.6 % (95.0-100.0); PCO2 ABG 25.6 mmHg (35.0-45.0); PO2 ABG 113.4 mmHg (80.0-100.0); PO2 FiO2 Ratio Arterial Blood 1.23 %; Reduced Hemoglobin 1.6 %THb (0-5.0)
--- NOTE | 2025-10-17 21:17 | PC.NURSE ---
Patient decompensating with SpO2 in 70s dropping into 60s. Patient struggling to breathe and feeling a sense of impending doom. RR in the 40s and temperature spiked to 100.3. Dr. French notified and STAT CXR and ABG ordered. Dr. French at bedside. Linda SALES EXEC at bedside as well. Patient's airvo increased to 40 L and 100%. Son and daughter at bedside. Patient educated on possibility of intubation due to increased work of breathing. RR in 40's when talking to children. Patient trying not to overexert herself but has very little reserve and taking longer to rebound when desatting into the 70s. Dr. Montaño notified.
[2025-10-17 21:18] LABS: Site Drawn RIGHT BRACHIAL
[2025-10-17 21:19] LABS: Liters per Minute 40.0 LPM
[2025-10-17] MEDS: MORPHINE SULFATE (*CRX) 4 MG/ML INJ 2 MG IV PUSH (21:56)
[2025-10-18] VITALS (74 sets, daily range): BP systolic 86–176; BP diastolic 55–101; PULSE 60–137; RESP 20–40; TEMP 36.8–37.9; O2SAT 93–100; BMI 26.2
[2025-10-18] MEDS: MORPHINE SULFATE (*CRX) 4 MG/ML INJ 2 MG IV PUSH ×2 (01:24→05:28)
[2025-10-18] MEDS: IPRATROPIUM 0.5 MG/ALBUTEROL SULFATE 2.5 MG (BASE) AMPUL.NEB 3 ML INHALATION ×4 (03:02→20:45)
[2025-10-18] MEDS: VANCOMYCIN 1,250 MG/NS 250 ML 1,250 MG/250 ML BAG 166.67 MG IVPB (03:10)
[2025-10-18 04:41] LABS: Hematocrit 28.0 % (37.0-47.0); Hemoglobin 9.5 g/dL (12.0-15.0); Immature Granulocyte Percent A 0.5 % (0-0.5); Lymphocytes Absolute Auto 0.38 K/mm3 (0.9-3.2); Mean Corpuscular HGB Conc 33.9 g/dl (32-36); Mean Corpuscular Hemoglobin 40.9 pg (26-34); Mean Corpuscular Volume 120.7 fl (80-100); Nucleated Red Blood Cells Absolute Auto 0.000 K/mm3 (0.0-0.012); Nucleated Red Blood Cells Perc 0.0 % (0.0-0.2); Platelet Count Result 100 k/mm3 (150-375); Red Blood Count 2.32 M/mm3 (4.2-5.4); White Blood Count 4.4 K/mm3 (4.5-10.0)
[2025-10-18 04:52] LABS: INR 1.2; Prothrombin Time 15.2 Seconds (11.1-14.7)
[2025-10-18 04:54] LABS: Partial Thromboplastin Time 66.7 Seconds (22.3-36.8)
[2025-10-18 05:05] LABS: Macrocytosis Occasional (NORMAL); Ovalocytes Occasional; Schistocytes None Seen
[2025-10-18 05:06] LABS: Alanine Aminotransferase 174 U/L (6-35); Albumin Level 2.8 g/dL (3.5-5.1); Alkaline Phosphatase 256 U/L (38-126); Anion Gap 3 mmol/L (4-12); Anisocytosis Occasional; Aspartate Amino Transferase 325 U/L (14-36); Bilirubin,Total 0.9 mg/dL (0.2-1.3); Blood Urea Nitrogen 13 mg/dL (7-17); CRP 4.0 mg/dL (<1.0); Calcium 8.3 mg/dL (8.4-10.2); Carbon Dioxide 25 mmol/L (22-30); Chloride 104 mmol/L (98-107); Estimated CRCL calculation 68 ml/min; Estimated Glomerular Filt Rate > 60; Glucose 124 mg/dL (65-110); Magnesium 1.9 mg/dL (1.6-2.3); Potassium 2.7 mmol/L (3.4-5.0); Sodium 132 mmol/L (137-145); Total Protein 5.5 g/dL (6.3-8.2)
[2025-10-18 05:15] LABS: Troponin I < 0.012 ng/mL (0.000-0.034)
[2025-10-18] MEDS: MEROPENEM 1 GM in SODIUM CHLORIDE 0.9% IV 100 ML 200 ML IVPB ×2 (05:29→17:09)
[2025-10-18] MEDS: HEPARIN SOD/D5W 100 UNITS/ML 25,000 UNITS/250 ML BAG 10 UNITS IV CONT (05:29)
[2025-10-18 05:52] LABS: Alveolar/Arterial O2 Gradient 279.1 mmHg; Carboxyhemoglobin 0.9 % THb (0-2.0); Fractional Inspired Oxygen 55 %; HCO3 ABG 24.5 mEq/l (22.0-26.0); Methemoglobin ABG 0.3 %THb (0-1.5); Oxygen Content ABG 13.5 %vol (16.0-22.0); Oxygen Saturation ABG 96.5 % (95.0-100.0); PCO2 ABG 32.2 mmHg (35.0-45.0); PO2 ABG 77.2 mmHg (80.0-100.0); PO2 FiO2 Ratio Arterial Blood 1.40 %; Reduced Hemoglobin 4.4 %THb (0-5.0)
[2025-10-18 05:54] LABS: Site Drawn RIGHT BRACHIAL
[2025-10-18 05:55] LABS: Liters per Minute 40.0 LPM
[2025-10-18] MEDS: POTASSIUM CHLORIDE INJ 40 MEQ in SODIUM CHLORIDE 0.9% IV 500 ML 75 MEQ IVPB (06:11)
--- NOTE | 2025-10-18 06:25 | PC.NURSE ---
Patient complains of potassium burning at IV insertion site. Moved to PIV in right wrist and continues to burn. Rate decreased to 75 mEq/hr
[2025-10-18] MEDS: ONDANSETRON INJ 4 MG/2 ML VIAL IV PUSH (06:55)
[2025-10-18] MEDS: DOXYCYCLINE IV 100 MG in SODIUM CHLORIDE 0.9% IV 100 ML IVPB ×2 (08:27→19:49)
[2025-10-18] MEDS: PANTOPRAZOLE SODIUM IV 40 MG VIAL IV PUSH (08:27)
[2025-10-18] MEDS: BUDESONIDE RESPULE NEB 0.5 MG/2 ML AMP INHALATION ×2 (08:53→20:45)
[2025-10-18 09:04] LABS: Influenza A QL RT-PCR Negative (Negative); Influenza B QL RT-PCR Negative (Negative); RSV RNA, RT-PCR Negative (Negative); SARS-CoV-2 RNA PCR Negative (Negative)
[2025-10-18] MEDS: ETOMIDATE 20 MG/10 ML AMPUL IV PUSH (09:17)
[2025-10-18] MEDS: ROCURONIUM BROMIDE 50 MG/5 ML VIAL IV PUSH (09:18)
[2025-10-18] MEDS: MIDAZOLAM 100MG/NS 100ML(*CRX) 100 MG/100 ML BAG IV CONT (09:20)
[2025-10-18] MEDS: FENTANYL 2,500MCG/NS250ML(*CRX 2,500 MCG/250 ML BAG IV CONT (09:20)
--- NOTE | 2025-10-18 09:42 | WPDPROCEDUR ---
Procedures Intubation Intubation Date: 10/18/25 Intubation Time: 09:42 Consent: Consent was obtained from the patient. After explaining her the rationale for intubation for impending respiratory failure, possible hypoperfusion given elevation in the lactic acid and LFTs. Patient was agreeable, I also discussed with her son and daughter at bedside. A pre-procedural Time-Out was completed immediately before starting the procedure and confirmed: Patient Identification, Site, Procedure, Patient Position and the Availability of Requisite Equipment: Yes Sedative: etomidate Paralytic: succinylcholine Laryngoscope: fiber optic video scope Assist device used: fiber optic device ET tube size: 7.5 Tube secured depth (cm): 23 Tube secured location: lips Tube placement confirmation: visualized tube passing through cords, equal breath sounds bilaterally, no breath sounds over epigastrium and confirmation by capnometry Patient tolerated procedure: well and no complications Intubation complications: none Additional comments: Vocal cords were very anterior, had to bend the stylet for the ETT quite a bit.
[2025-10-18] MEDS: RAPID SEQUENCE INTUBATION KIT 1 EACH (09:43)
[2025-10-18 10:17] LABS: Alveolar/Arterial O2 Gradient 510.1 mmHg; Fractional Inspired Oxygen 100 %; HCO3 ABG 25.0 mEq/l (22.0-26.0); Oxygen Content ABG 15.6 %vol (16.0-22.0); Oxygen Saturation ABG 99.2 % (95.0-100.0); PCO2 ABG 35.2 mmHg (35.0-45.0); PO2 ABG 167.7 mmHg (80.0-100.0); PO2 FiO2 Ratio Arterial Blood 1.68 %
[2025-10-18 10:25] LABS: Arterial Blood Gas Ventilator rate 24 /MIN; Modified Allen's Test Pass; Site Drawn LEFT RADIAL
[2025-10-18 10:26] LABS: Arterial Blood Gas Tidal Volume 350 ml
--- NOTE | 2025-10-18 12:57 | P.PNINT_ITS ---
Assessment and Plan Assessment and Plan (1) Acute respiratory failure: Code(s): J96.00 - Acute respiratory failure, unspecified whether with hypoxia or hypercapnia Status: Acute Assessment and Plan: Acute hypoxic respiratory failure likely related to pneumonia/pneumonitis, pulmonary embolism -recently treated for pneumonia as outpatient. -10/17: chest x-ray this morning showed mild worsening of diffuse severe pneumonitis -continue meropenem and vancomycin (10/16) given patient is immunosuppressed -discussed with patient, son and daughter at bedside, explained to them regarding increased oxygen requirements, impending respiratory failure, lactic acidosis, elevated LFTs could be related to hypoperfusion. Patient and children are agreeable for intubation 10/18: Patient successfully intubated, currently on CMV mode of ventilation, ABGs reviewed post intubation, ventilator adjusted currently on peep of 10 and 60% FiO2 -continue bronchodilators and Pulmicort 10/16: Chest CTA MPRESSION: 1. Pulmonary emboli in subsegmental pulmonary arteries in the bilateral basilar lower lobes with relatively low clot burden and without evident right heart strain. Dr. French discussed these findings with Dr. Guadalupe at 4:40 PM. 2. Diffuse bilateral lung disease suspicious for atypical pneumonia with appearance similar to COVID pneumonia as manifest during the early stages of the pandemic. 3. Small amount of pneumomediastinum of indeterminate origin (2) Pneumonia: Code(s): J18.9 - Pneumonia, unspecified organism Status: Acute Assessment and Plan: As above (3) Pulmonary embolism: Code(s): I26.99 - Other pulmonary embolism without acute cor pulmonale Status: Acute Assessment and Plan: Continue heparin infusion, CTA PE protocol showed subsegmental pulmonary embolism in the bibasal lower lobes with low clot burden and without evidence of right heart strain. (4) Breast cancer: Code(s): C50.919 - Malignant neoplasm of unspecified site of unspecified female breast Status: Acute Assessment and Plan: Patient with breast cancer takes abemaciclib, anastrozole, currently on hold (5) Hx of supraventricular tachycardia: Code(s): Z86.79 - Personal history of other diseases of the circulatory system Status: Acute Assessment and Plan: Patient on Coreg, currently on hold. Heart rates are stable, regular rate and rhythm -continue to monitor (6) Hyperlipidemia: Code(s): E78.5 - Hyperlipidemia, unspecified Status: Acute Assessment and Plan: Continue pravastatin (7) Hypertension: Code(s): I10 - Essential (primary) hypertension Status: Acute Assessment and Plan: Blood pressures have been stable, continue to monitor (8) Pneumomediastinum: Code(s): J98.2 - Interstitial emphysema Status: Acute Assessment and Plan: Likely related to coughing -patient on Mucinex. -will continue to monitor VS chest x-ray Plan DVT prophylaxis: Heparin infusion Stress ulcer prophylaxis: Protonix (patient does take omeprazole at home) Nutrition: Will start tube feeds in a.m. 10/18: PICC line inserted Code Status: Full code Critical Care Time Spent: 48 minutes Discuss with daughter Sirisha, son Yasir, and the patient and updated them with patient's condition and plan of care. Due to a high probability of clinically significant, life threatening deterioration, the patient required my highest level of preparedness to intervene emergently and I personally spent this critical care time directly and personally managing the patient. This critical care time included obtaining a history; examining the patient; pulse oximetry; ordering and review of studies; arranging urgent treatment with development of a management plan; evaluation of patient's response to treatment; frequent reassessment; and discussions with other providers. It was exclusive of separately billable procedures and treating other patients and teaching time. Please see Assessment and Plan section and the rest of the note for further information on patient assessment and treatment This dictation may have been done utilizing a voice recognition system. Attempts have been made to correct errors. However, there may be uncorrected grammatical, spelling, and recognitions errors present. Subjective Date/time seen: 10/18/25 12:57 Interval history: Reason for consult: Acute respiratory failure, pneumonia/pneumonitis, pulmonary embolism, presented to the ED on 10/16/2025 with complaints of cough, shortness of breath 10/18: Intubated 10/18/2025: Patient seen and examined the ICU, labs reviewed. Chest x-ray seems to have worsened along with elevated lactic acid, elevated CRP, worsening LFTs could be related to hypoxia. Patient in ARDS with a PF ratio of 140. Oxygen requirements have increased overnight, patient was placed on BiPAP and Airvo. Continues to have difficulty breathing and shortness of breath. She also complains of cough. Hemodynamically stable, discussed with patient and her children regarding intubation for impending respiratory failure to which all of them agreeable. Review of Systems Review of Systems: All systems reviewed & are unremarkable except as noted in HPI and below Exam Narrative: General: Pleasant female in no acute distress HEENT:? Pupils equal and reactive, sclera is clear Neck:? Supple Respiratory:? Coarse breath sounds diffusely, no wheezing, decreased at base Cardiac:? S1-S2 is normal, regular rate and rhythm Abdomen:? Soft, nontender, nondistended, hypoactive bowel Extremities:? Pitting edema bilateral lower extremities Neuro:? Patient is awake, alert, oriented, nonfocal, able to answer questions and follows simple command Skin:? No skin lesions noted Psych:? Normal mentation and affect Objective Data Vital Signs Vital Signs: Vital Signs - 24 hr 10/17/25 13:00 10/17/25 13:00 10/17/25 14:00 Temperature 98.7 F 98.5 F Pulse Rate 91 95 104 H Respiratory Rate 21 H 31 H Blood Pressure 99/65 L 96/58 L Pulse Oximetry 100 93 Oxygen Delivery Oxygen Flow Rate Fraction of Inspired Oxygen 10/17/25 14:00 10/17/25 14:15 10/17/25 14:15 Temperature 98.6 F Pulse Rate 94 91 97 Respiratory Rate 28 H 23 H 28 H Blood Pressure 104/63 Pulse Oximetry 93 97 Oxygen Delivery High Flow Therapy with Na Oxygen Flow Rate 30 Fraction of Inspired Oxygen 29 10/17/25 14:30 10/17/25 16:00 10/17/25 16:00 Temperature 98.9 F Pulse Rate 97 97 94 Respiratory Rate 28 H 27 H 28 H Blood Pressure 98/58 L Pulse Oximetry 95 93 Oxygen Delivery High Flow Therapy with Na Oxygen Flow Rate 30 Fraction of Inspired Oxygen 40 10/17/25 16:00 10/17/25 17:00 10/17/25 18:00 Temperature 99.2 F 99.4 F Pulse Rate 102 H 102 H 105 H Respiratory Rate 29 H 41 H Blood Pressure 99/59 L 100/57 L Pulse Oximetry 87 L Oxygen Delivery Oxygen Flow Rate Fraction of Inspired Oxygen 10/17/25 18:00 10/17/25 18:33 10/17/25 19:00 Temperature 99.5 F Pulse Rate 104 H 104 H Respiratory Rate 38 H Blood Pressure 95/61 L Pulse Oximetry 90 91 Oxygen Delivery Oxygen Flow Rate Fraction of Inspired Oxygen 10/17/25 20:00 10/17/25 20:00 10/17/25 20:10 Temperature 100.3 F H Pulse Rate 102 H 103 H 103 H Respiratory Rate 30 H 27 H Blood Pressure 96/41 L Pulse Oximetry 100 Oxygen Delivery Oxygen Flow Rate Fraction of Inspired Oxygen 10/17/25 20:14 10/17/25 20:20 10/17/25 21:00 Temperature Pulse Rate 99 97 97 Respiratory Rate 25 H 28 H 28 H Blood Pressure Pulse Oximetry 93 76 L Oxygen Delivery High Flow Therapy with Na High Flow Therapy with Na Oxygen Flow Rate 30 40 Fraction of Inspired Oxygen 30 40 10/17/25 21:00 10/17/25 21:37 10/17/25 22:00 Temperature 100.3 F H Pulse Rate 104 H 101 H 101 H Respiratory Rate 42 H 38 H Blood Pressure 114/68 Pulse Oximetry 100 97 Oxygen Delivery BiPAP Oxygen Flow Rate Fraction of Inspired Oxygen 10/17/25 22:00 10/17/25 22:53 10/17/25 23:00 Temperature 100.2 F H 100.2 F H Pulse Rate 98 103 H 102 H Respiratory Rate 33 H 31 H 33 H Blood Pressure 102/59 L 113/73 Pulse Oximetry 96 97 97 Oxygen Delivery BiPAP Oxygen Flow Rate Fraction of Inspired Oxygen 10/17/25 23:46 10/18/25 00:00 10/18/25 00:00 Temperature 100.2 F H Pulse Rate 106 H 102 H 100 Respiratory Rate 25 H 27 H Blood Pressure 102/58 L Pulse Oximetry 96 99 Oxygen Delivery BiPAP Oxygen Flow Rate Fraction of Inspired Oxygen 40 10/18/25 00:04 10/18/25 01:00 10/18/25 02:00 Temperature 100.2 F H Pulse Rate 101 H 96 100 Respiratory Rate 24 H 24 H Blood Pressure 104/58 L Pulse Oximetry 100 100 Oxygen Delivery High Flow Therapy with Na Oxygen Flow Rate 40 Fraction of Inspired Oxygen 90 10/18/25 02:00 10/18/25 03:00 10/18/25 03:03 Temperature 99.4 F 99.1 F Pulse Rate 99 110 H 100 Respiratory Rate 25 H 28 H 25 H Blood Pressure 120/72 106/69 Pulse Oximetry 99 95 Oxygen Delivery Oxygen Flow Rate Fraction of Inspired Oxygen 10/18/25 03:08 10/18/25 03:10 10/18/25 04:00 Temperature 98.9 F Pulse Rate 111 H 108 H 95 Respiratory Rate 27 H 25 H 25 H Blood Pressure 111/67 Pulse Oximetry 96 94 Oxygen Delivery High Flow Therapy with Na Oxygen Flow Rate 30 Fraction of Inspired Oxygen 55 10/18/25 04:00 10/18/25 04:10 10/18/25 05:00 Temperature 99.7 F H Pulse Rate 97 108 H 95 Respiratory Rate 24 H 26 H Blood Pressure 89/64 L Pulse Oximetry 94 99 Oxygen Delivery High Flow Therapy with Na Oxygen Flow Rate 40 Fraction of Inspired Oxygen 55 10/18/25 05:55 10/18/25 06:00 10/18/25 06:00 Temperature 99.4 F Pulse Rate 89 91 90 Respiratory Rate 28 H 28 H Blood Pressure 114/67 Pulse Oximetry 96 98 Oxygen Delivery High Flow Therapy with Na Oxygen Flow Rate 40 Fraction of Inspired Oxygen 55 10/18/25 07:00 10/18/25 08:00 10/18/25 08:00 Temperature 99.6 F Pulse Rate 92 97 Respiratory Rate 29 H 29 H Blood Pressure 119/67 110/74 Pulse Oximetry 98 98 100 Oxygen Delivery High Flow Therapy with Na Oxygen Flow Rate 40 Fraction of Inspired Oxygen 10/18/25 08:00 10/18/25 08:20 10/18/25 08:39 Temperature 99.8 F H Pulse Rate 93 93 Respiratory Rate Blood Pressure Pulse Oximetry 96 Oxygen Delivery High Flow Therapy with Na Oxygen Flow Rate 40 Fraction of Inspired Oxygen 66 10/18/25 09:00 10/18/25 09:20 10/18/25 09:20 Temperature Pulse Rate 98 108 H 130 H Respiratory Rate 33 H 27 H Blood Pressure 141/84 H Pulse Oximetry 96 100 Oxygen Delivery Mechanical Ventilation Oxygen Flow Rate Fraction of Inspired Oxygen 100 10/18/25 09:20 10/18/25 09:20 10/18/25 09:35 Temperature Pulse Rate 130 H 130 H 98 Respiratory Rate 40 H 30 H 24 H Blood Pressure Pulse Oximetry Oxygen Delivery Oxygen Flow Rate Fraction of Inspired Oxygen 10/18/25 09:45 10/18/25 09:45 10/18/25 10:00 Temperature Pulse Rate 137 H 129 H 104 H Respiratory Rate 24 H 24 H 24 H Blood Pressure 137/101 H Pulse Oximetry 100 Oxygen Delivery Oxygen Flow Rate Fraction of Inspired Oxygen 10/18/25 10:00 10/18/25 10:11 10/18/25 10:15 Temperature Pulse Rate 94 113 H 104 H Respiratory Rate 24 H 24 H Blood Pressure Pulse Oximetry Oxygen Delivery Oxygen Flow Rate Fraction of Inspired Oxygen 10/18/25 10:30 10/18/25 10:34 10/18/25 10:53 Temperature Pulse Rate 109 H 120 H 99 Respiratory Rate 24 H 24 H Blood Pressure Pulse Oximetry 99 Oxygen Delivery Mechanical Ventilation Oxygen Flow Rate Fraction of Inspired Oxygen 65 10/18/25 11:00 10/18/25 11:12 10/18/25 11:16 Temperature 99.5 F Pulse Rate 98 110 H Respiratory Rate 20 20 Blood Pressure 118/78 Pulse Oximetry 99 96 Oxygen Delivery Mechanical Ventilation Oxygen Flow Rate Fraction of Inspired Oxygen 10/18/25 12:00 10/18/25 12:00 10/18/25 12:00 Temperature Pulse Rate 101 H 100 Respiratory Rate 20 20 Blood Pressure 114/73 Pulse Oximetry 100 Oxygen Delivery Oxygen Flow Rate Fraction of Inspired Oxygen 60 10/18/25 12:00 10/18/25 12:00 10/18/25 12:00 Temperature 99.5 F Pulse Rate 100 100 99 Respiratory Rate 20 20 Blood Pressure 114/73 Pulse Oximetry 100 Oxygen Delivery Oxygen Flow Rate Fraction of Inspired Oxygen Intake/Output Intake/Output: Intake & Output 10/15/25 10/16/25 10/17/25 10/18/25 23:59 23:59 23:59 23:59 Intake Total 1050 4476.3 756.7 Output Total 400 2680 550 Balance 650 1796.3 206.7 Meds/Results Medications: Active Medications Generic Name Dose Route Start Last Admin Trade Name Freq PRN Reason Stop Dose Admin Acetaminophen 650 mg 10/16/25 19:07 Acetaminophen 325 Mg Tablet PO Q4H PRN Mild Pain (1-3) or Fever Hydrocodone Bitart/Acetaminophen 1 tab 10/16/25 19:07 Hydrocodone/Acetaminophen (*Crx) 5-325 Mg Tablet PO Q4H PRN Moderate Pain (4-6) Albuterol/Ipratropium 3 ml 10/17/25 14:00 10/18/25 08:30 Ipratropium 0.5 Mg/Albuterol Sulfate 2.5 Mg (Base) Ampul.Neb 3 Ml INHALATION 3 ml Q6HRT [facility] Administration Amitriptyline HCl 50 mg 10/16/25 22:35 12/04/25 21:37 Amitriptyline Hcl 25 Mg Tablet PO Not Given On Hold: 10/18/25 10:18 QHS [facility] Anastrozole 1 mg 10/17/25 09:00 10/18/25 10:26 Anastrozole (*Chemo) 1 Mg Tablet PO Not Given On Hold: 10/18/25 10:18 DAILY [facility] Apixaban 10 mg 10/17/25 09:00 Apixaban 5 Mg Tablet PO On Hold: 10/17/25 09:00 Q12HR [facility] Comment: HEPARIN DRIP STARTED Budesonide 0.5 mg 10/17/25 09:50 10/18/25 08:53 Budesonide Respule Neb 0.5 Mg/2 Ml Amp INHALATION 0.5 mg Q12HRT [facility] Administration Carvedilol 40 mg 10/17/25 08:00 10/17/25 10:07 Carvedilol Cr 10 Mg Capsule PO Not Given On Hold: 10/17/25 09:00 DAILY@0800 [facility] Docusate Sodium 100 mg 10/17/25 09:00 Docusate Sodium 100 Mg Capsule PO On Hold: 10/17/25 09:00 Q12HR [facility] Duloxetine HCl 60 mg 10/17/25 09:00 Duloxetine Hcl 60 Mg Capsule.Dr BY MOUTH On Hold: 10/17/25 09:00 DAILY [facility] Gabapentin 600 mg 10/16/25 19:35 10/16/25 20:13 Gabapentin 300 Mg Capsule PO 600 mg On Hold: 10/17/25 09:00 QPM [facility] Administration Gabapentin 300 mg 10/17/25 09:00 Gabapentin 300 Mg Capsule PO On Hold: 10/17/25 09:00 QAM [facility] Guaifenesin 1,200 mg 10/16/25 21:00 10/18/25 11:47 Guaifenesin 12 Hr 600 Mg Tabcr PO Not Given Q12HR [facility] Heparin Sodium (Porcine) 4,000 units 10/17/25 01:19 10/17/25 14:25 Heparin Sodium 5,000 Units/Ml Vial IV PUSH 4,000 units PRN PRN Administration aPTT less than 55 seconds Heparin Sodium (Porcine) 2,500 units 10/17/25 01:19 10/18/25 05:30 Heparin Sodium 5,000 Units/Ml Vial IV PUSH 2,500 units PRN PRN Administration aPTT 55 - 70 seconds Heparin Sodium/Dextrose 25,000 units in 250 mls @ 10 mls/hr 10/17/25 01:19 10/18/25 05:29 Heparin Sodium/D5w 100 Units/Ml IV CONT 1,000 units/hr .Q24H [facility] 10 mls/hr Protocol Administration 1,000 UNITS/HR Meropenem 1 gm/ Sodium 100 mls @ 200 mls/hr 10/17/25 18:00 10/18/25 05:29 Chloride IVPB 200 mls/hr Q12H [facility] Administration Vancomycin HCl 1,250 mg in 250 mls @ 166.667 mls/hr 10/18/25 03:00 10/18/25 04:40 Vancomycin 1,250 Mg/Ns 250 Ml IVPB Infused Q24H [facility] Infusion Doxycycline Hyclate 100 mg/ 100 mls @ 100 mls/hr 10/17/25 21:00 10/18/25 08:27 Sodium Chloride IVPB 100 mls/hr Q12H [facility] Administration Fentanyl Citrate 2,500 mcg in 250 mls @ 15 mls/hr 10/18/25 09:20 10/18/25 12:00 Fentanyl 2,500 Mcg/Ns 250 Ml IV CONT 150 mcg/hr .[id number] [facility] 15 mls/hr Protocol Titration 150 MCG/HR Midazolam HCl 100 mg in 100 mls @ 8 mls/hr 10/18/25 09:20 10/18/25 12:00 Versed 100 Mg/Ns 100 Ml IV CONT 8 mg/hr .[id number] [facility] 8 mls/hr Protocol Titration 8 MG/HR Levothyroxine Sodium 50 mcg 10/17/25 06:30 10/18/25 05:30 Levothyroxine Sodium 50 Mcg Tablet PO Not Given DAILY@0630 [facility] Methocarbamol 500 mg 10/16/25 18:45 Methocarbamol 500 Mg Tablet PO On Hold: 10/17/25 09:00 QID PRN Spasms Methylprednisolone Sodium Succinate 60 mg 10/19/25 09:00 Methylprednisolone Sod Succ 125 Mg Vial IV PUSH DAILY [facility] Multi-Ingred Cream/Lotion/Oil/Oint 1 applic 10/18/25 21:00 Mineral Oil/White Petrolatum Ointment EACH EYE Q12HR [facility] Home Med (Vibegron [ 75 mg 10/17/25 09:00 10/18/25 10:28 Gemtesa] 75 Mg PO 11/16/25 08:59 Not Given Tablet) DAILY [facility] On Hold: 10/18/25 10:20 Ondansetron HCl 4 mg 10/17/25 07:51 10/18/25 06:55 Ondansetron Inj 4 Mg/2 Ml Vial IV PUSH 4 mg Q6H PRN Administration Nausea And Vomiting Pantoprazole Sodium 40 mg 10/18/25 09:00 10/18/25 08:27 Pantoprazole Sodium Iv 40 Mg Vial IV PUSH 40 mg QAM [facility] Administration Pravastatin Sodium 40 mg 10/16/25 19:05 10/18/25 11:47 Pravastatin Sodium 20 Mg Tablet BY MOUTH Not Given DAILY [facility] Prochlorperazine Maleate 10 mg 10/16/25 22:25 10/16/25 23:12 Prochlorperazine Maleate 5 Mg Tablet PO 10 mg On Hold: 10/17/25 09:00 Q8H PRN Administration Nausea And Vomiting Sodium Chloride 10 ml 10/18/25 14:00 10/18/25 12:48 Central Line Flush IV PUSH Not Given Q8HR [facility] Sodium Chloride 10 ml 10/18/25 10:10 Central Line Flush IV PUSH PRN PRN with TPN bag changes Sodium Chloride 20 ml 10/18/25 10:10 Central Line Flush IV PUSH PRN PRN after blood draws Radiology Results: ITS Impressions Chest CTA 10/16/25 16:25 IMPRESSION: 1. Pulmonary emboli in subsegmental pulmonary arteries in the bilateral basilar lower lobes with relatively low clot burden and without evident right heart strain. Dr. French discussed these findings with Dr. Guadalupe at 4:40 PM. 2. Diffuse bilateral lung disease suspicious for atypical pneumonia with ap pearance similar to COVID pneumonia as manifest during the early stages of the pandemic. 3. Small amount of pneumomediastinum of indeterminate origin. Chest X-Ray 10/18/25 09:55 Impression: Severe bilateral pneumonia Labs Labs: Laboratory Results - last 24 hr 10/17/25 10/17/25 10/17/25 13:18 20:41 21:06 WBC RBC Hgb Hct MCV MCH MCHC RDW Plt Count MPV Immature Gran % (Auto) Neut % (Auto) Lymph % (Auto) [place] % (Auto) Eos % (Auto) Baso % (Auto) Lymph # (Auto) [place] # (Auto) Eos # (Auto) Baso # (Auto) Abs Immat Gran (auto) Absolute Neuts (auto) Absolute Nucleated RBC Band Neutrophils % Nucleated RBC % Platelet Estimate Anisocytosis Macrocytosis Ovalocytes Schistocytes PT INR APTT 54.0 H 162.9 H* Puncture Site Right brachial ABG pH 7.531 H* ABG pCO2 25.6 L ABG pO2 113.4 H ABG PO2/FiO2 Ratio 1.23 ABG HCO3 21.0 L ABG O2 Saturation 98.6 ABG O2 Content 15.1 L ABG Base Excess -0.7 A-a Gradient 516.5 Oxyhemoglobin 97.4 Carboxyhemoglobin 1.0 Methemoglobin 0.0 Reduced Hemoglobin 1.6 Total Hemoglobin 10.9 L O2 Delivery Device High flow therapy O2 Liters/Min 40.0 Minute Volume Vent Rate Vent Mode FiO2 92 Tidal Volume PEEP Peak Inspir Pressure Pressure Support Sodium Potassium Chloride Carbon Dioxide Anion Gap BUN Creatinine Estim Creat Clear Calc Estimated GFR Glucose POC Capillary Glucose Lactic Acid Calcium Phosphorus Magnesium Total Bilirubin Direct Bilirubin AST ALT Alkaline Phosphatase Troponin I C-Reactive Protein Total Protein Albumin 10/18/25 10/18/25 10/18/25 04:03 05:37 07:22 WBC 4.4 L RBC 2.32 L Hgb 9.5 L Hct 28.0 L MCV 120.7 H MCH 40.9 H MCHC 33.9 RDW 16.5 H Plt Count 100 L MPV 9.9 Immature Gran % (Auto) 0.5 Neut % (Auto) 85.8 H Lymph % (Auto) 8.6 L [place] % (Auto) 3.2 Eos % (Auto) 1.4 Baso % (Auto) 0.5 Lymph # (Auto) 0.38 L [place] # (Auto) 0.1 Eos # (Auto) 0.1 Baso # (Auto) 0.0 Abs Immat Gran (auto) 0.02 Absolute Neuts (auto) 3.8 Absolute Nucleated RBC 0.000 Band Neutrophils % Not Reportable Nucleated RBC % 0.0 Platelet Estimate Decreased Anisocytosis Occasional Macrocytosis Occasional Ovalocytes Occasional Schistocytes None seen PT 15.2 H INR 1.2 APTT 66.7 H Puncture Site Right brachial ABG pH 7.499 H ABG pCO2 32.2 L ABG pO2 77.2 L ABG PO2/FiO2 Ratio 1.40 ABG HCO3 24.5 ABG O2 Saturation 96.5 ABG O2 Content 13.5 L ABG Base Excess 1.6 A-a Gradient 279.1 Oxyhemoglobin 94.4 Carboxyhemoglobin 0.9 Methemoglobin 0.3 Reduced Hemoglobin 4.4 Total Hemoglobin 10.1 L O2 Delivery Device High flow therapy O2 Liters/Min 40.0 Minute Volume Vent Rate Vent Mode FiO2 55 Tidal Volume PEEP Peak Inspir Pressure Pressure Support Sodium 132 L Potassium 2.7 L* Chloride 104 Carbon Dioxide 25 Anion Gap 3 L BUN 13 D Creatinine 0.64 L Estim Creat Clear Calc 68 Estimated GFR > 60 Glucose 124 H POC Capillary Glucose Lactic Acid 2.5 H 1.4 Calcium 8.3 L Phosphorus 3.5 Magnesium 1.9 Total Bilirubin 0.9 Direct Bilirubin 0.0 AST 325 H ALT 174 H Alkaline Phosphatase 256 H Troponin I < 0.012 C-Reactive Protein 4.0 H Total Protein 5.5 L Albumin 2.8 L 10/18/25 10/18/25 10:04 11:42 WBC RBC Hgb Hct MCV MCH MCHC RDW Plt Count MPV Immature Gran % (Auto) Neut % (Auto) Lymph % (Auto) [place] % (Auto) Eos % (Auto) Baso % (Auto) Lymph # (Auto) [place] # (Auto) Eos # (Auto) Baso # (Auto) Abs Immat Gran (auto) Absolute Neuts (auto) Absolute Nucleated RBC Band Neutrophils % Nucleated RBC % Platelet Estimate Anisocytosis Macrocytosis Ovalocytes Schistocytes PT INR APTT Puncture Site Left radial ABG pH 7.470 H ABG pCO2 35.2 ABG pO2 167.7 H ABG PO2/FiO2 Ratio 1.68 ABG HCO3 25.0 ABG O2 Saturation 99.2 ABG O2 Content 15.6 L ABG Base Excess 1.6 A-a Gradient 510.1 Oxyhemoglobin 97.7 Carboxyhemoglobin Methemoglobin Reduced Hemoglobin Total Hemoglobin 11.1 L O2 Delivery Device Ventilator O2 Liters/Min Not Reportable Minute Volume Not Reportable Vent Rate 24 Vent Mode Cmv FiO2 100 Tidal Volume 350 PEEP 10 Peak Inspir Pressure Not Reportable Pressure Support Not Reportable Sodium Potassium Chloride Carbon Dioxide Anion Gap BUN Creatinine Estim Creat Clear Calc Estimated GFR Glucose POC Capillary Glucose 97 Lactic Acid Calcium Phosphorus Magnesium Total Bilirubin Direct Bilirubin AST ALT Alkaline Phosphatase Troponin I C-Reactive Protein Total Protein Albumin Quality VTE Prophylaxis VTE prophylaxis: pharmacologic ordered
--- NOTE | 2025-10-18 13:00 | PC.NURSE ---
PTT due at 1130. RN obtained ordered lab specimen from PICC line and sent off to lab. Lab called and notified RN that blood sample was not enough for the tube. RN attempted 3 total times, all three times lab specimen was not at the correct amount. Called laborer hoisting to obtain lab. Specimen now pending.
[2025-10-18 13:12] LABS: Partial Thromboplastin Time 86.1 Seconds (22.3-36.8)
[2025-10-18 19:30] LABS: Partial Thromboplastin Time 77.8 Seconds (22.3-36.8)
[2025-10-18] MEDS: NOREPINEPHRINE 8 MG/D5W 250 ML 8 MG/250 ML BAG 9.38 MG IV CONT (19:47)
[2025-10-18] MEDS: MINERAL OIL/WHITE PETROLATUM OINTMENT 1 APPLIC EACH EYE (19:49)
[2025-10-18] MEDS: CENTRAL LINE FLUSH 10 ML IV PUSH (22:30)
[2025-10-18] MEDS: MIDAZOLAM 100MG/NS 100ML(*CRX) 100 MG/100 ML BAG 6 MG IV CONT (23:57)
[2025-10-19] VITALS (58 sets, daily range): BP systolic 90–123; BP diastolic 51–86; PULSE 75–110; RESP 18–23; TEMP 36.6–37.3; O2SAT 91–99
--- NOTE | 2025-10-19 | ECHO_ITS ---
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 Staff Referring Physician: Derik Montaño MD Barrel Lathe Operator: Gunjan Saldivar Attending Provider: Jyoti Cuevas MD Contrast/Agitated Saline Contrast/Ag. Saline: Definity Amount: 2.00 ml Summary 1. Left ventricular systolic function is normal, estimated at 60-65. 2. The left ventricular diastolic function is grade I diastolic dysfunction. 3. Technically difficult study. Left Ventricle Left ventricular chamber dimension is normal. Left ventricular systolic function is normal, estimated at 60-65. There is no increased left ventricular wall thickness. Left ventricular septal wall motion is normal. The left ventricular diastolic function is grade I diastolic dysfunction. Right Ventricle Right ventricular chamber dimension is normal. Right ventricular systolic function is normal. Left Atria Left atrial chamber dimension is normal. Right Atria Right atrial chamber dimension is normal. Aortic Valve The aortic valve is not well visualized. There is no aortic valve sclerosis. There is no aortic valve stenosis. There is no aortic valve regurgitation. Pulmonic Valve The pulmonic valve is normal. There is no pulmonic valve stenosis. There is no pulmonic regurgitation. Mitral Valve The mitral valve has normal leaflets. There is no mitral valve stenosis. There is no mitral valve regurgitation. Tricuspid Valve The tricuspid valve leaflets are normal. There is no significant tricuspid valve stenosis. There is no tricuspid valve regurgitation. Pericardium/Pleural The pericardium appears normal. There is no pericardial effusion. Inferior Vena Cava Normal inferior vena cava with >50% collapse upon inspiration consistent with normal right atrial pressure, 5 mmHg. Aorta The aortic root size at the sinus of Valsalva is normal. The prox ascending aorta size is normal. Left Ventricular Outflow Tract Name Value Normal LVOT 2D LVOT Diameter 2.0 cm LVOT Doppler LVOT Peak Velocity 110 cm/s LVOT Peak Gradient 5 mmHg LVOT Mean Gradient 3 mmHg LVOT VTI 16 cm LVOT Stroke Volume 52 ml LVOT CO 5.4 l/min LVOT CI 2.9 l/min/m2 Pulmonic Valve Name Value Normal RVOT Doppler RVOT Peak Velocity 66 cm/s RVOT Peak Gradient 2 mmHg PV Doppler PV Peak Velocity 81 cm/s PV Peak Gradient 3 mmHg Mitral Valve Name Value Normal MV Diastolic Function MV E Peak Velocity 69 cm/s MV A Peak Velocity 87 cm/s MV E/A 0.8 MV Decel Time (PW) 282 ms MV Annular TDI MV E/e' (Septal) 9.3 MV E/e' (Lateral) 6.7 MV E/e' (Average) 8.0 Tricuspid Valve Name Value Normal Estimated PAP/RSVP RA Pressure 5 mmHg <=5 Aortic Valve Name Value Normal AV Doppler AV Peak Velocity 150 cm/s AV Peak Gradient 9 mmHg AV Area (Cont Eq Chilango) 2.4 cm2 AV DI (Ch[place]ango) 0.73 AV Regurgitation 2D LVOT Area 3.2 cm2 Ventricles Name Value Normal LV Dimensions 2D/MM IVS Diastolic Thickness (2D) 0.9 cm 0.6-1.0 LVID Diastole (2D) 4.0 cm 3.8-5.2 LVIW Diastolic Thickness (2D) 0.9 cm 0.6-0.9 LVID Systole (2D) 2.7 cm 2.2-3.5 LVOT Diameter 2.0 cm LV Mass (2D Cubed) 108.67 g 67.00-162.00 LV Mass Index (2D Cubed) 58 g/m2 43-95 Relative Wall Thickness (2D) 0.46 <=0.42 LV Fractional Shortening/Ejection Fraction 2D/MM LV Fractional Shortening (2D) 32 % 27-45 LV EF (2D Teichholz) 61 % LV Diastolic Volume (4C MOD) 86 ml LV EF (4C MOD) 67 % LV Diastolic Volume (2C MOD) 72 ml LV EF (2C MOD) 70 % LV Diastolic Volume (BP MOD) 81 ml 46-106 LV Diastolic Volume Index (BP MOD) 43 ml/m2 29-61 LV Systolic Volume (BP MOD) 26 ml 14-42 LV Systolic Volume Index (BP MOD) 14 ml/m2 8-24 LV EF (BP MOD) 68 % 54-74 LV Diastolic Length (4C) 7.9 cm LV Systolic Length (4C) 5.7 cm LV Stroke Volume (4C MOD) 57 ml Atria Name Value Normal LA Dimensions LA Volume (4C A-L) 19 ml LA Volume (BP A-L) 27 ml RA Dimensions RA Systolic Major Mackey Length (4C) 4.2 cm 2.2-2.8 RA Area (4C) 10.5 cm2 <=18.0 Report Signatures
[2025-10-19] MEDS: FENTANYL 2,500MCG/NS250ML(*CRX 2,500 MCG/250 ML BAG 17.5 MCG IV CONT (01:08)
[2025-10-19] MEDS: IPRATROPIUM 0.5 MG/ALBUTEROL SULFATE 2.5 MG (BASE) AMPUL.NEB 3 ML INHALATION ×4 (02:36→20:01)
[2025-10-19] MEDS: VANCOMYCIN 1,250 MG/NS 250 ML 1,250 MG/250 ML BAG 166.67 MG IVPB (04:35)
[2025-10-19 04:45] LABS: Hematocrit 24.3 % (37.0-47.0); Hemoglobin 8.5 g/dL (12.0-15.0); Immature Granulocyte Percent A 0.6 % (0-0.5); Immature Platelet Fraction Pct 2.0 % (0.9-11.2); Lymphocytes Absolute Auto 0.32 K/mm3 (0.9-3.2); Mean Corpuscular HGB Conc 35.0 g/dl (32-36); Mean Corpuscular Hemoglobin 40.7 pg (26-34); Mean Corpuscular Volume 116.3 fl (80-100); Nucleated Red Blood Cells Absolute Auto 0.000 K/mm3 (0.0-0.012); Nucleated Red Blood Cells Perc 0.0 % (0.0-0.2); Platelet Count Result 106 k/mm3 (150-375); Red Blood Count 2.09 M/mm3 (4.2-5.4); White Blood Count 3.6 K/mm3 (4.5-10.0)
[2025-10-19] MEDS: MEROPENEM 1 GM in SODIUM CHLORIDE 0.9% IV 100 ML 200 ML IVPB ×2 (04:54→17:25)
[2025-10-19] MEDS: CENTRAL LINE FLUSH 10 ML IV PUSH ×2 (04:54→20:17)
[2025-10-19 04:59] LABS: Partial Thromboplastin Time 148.0 Seconds (22.3-36.8)
[2025-10-19 05:17] LABS: Anisocytosis 1+; Hypochromasia 1+; Macrocytosis 1+ (NORMAL); Polychromasia Occasional; Schistocytes None Seen
[2025-10-19 05:18] LABS: Alveolar/Arterial O2 Gradient 276.4 mmHg; Carboxyhemoglobin 1.0 % THb (0-2.0); Fractional Inspired Oxygen 55 %; HCO3 ABG 27.5 mEq/l (22.0-26.0); Methemoglobin ABG 0.3 %THb (0-1.5); Oxygen Content ABG 12.3 %vol (16.0-22.0); Oxygen Saturation ABG 95.2 % (95.0-100.0); PCO2 ABG 39.6 mmHg (35.0-45.0); PO2 ABG 71.7 mmHg (80.0-100.0); PO2 FiO2 Ratio Arterial Blood 1.30 %; Reduced Hemoglobin 6.2 %THb (0-5.0); Site Drawn RIGHT BRACHIAL
[2025-10-19 05:19] LABS: Arterial Blood Gas Tidal Volume 350 ml; Arterial Blood Gas Ventilator rate 20 /MIN
[2025-10-19 05:22] LABS: Alanine Aminotransferase 141 U/L (6-35); Albumin Level 2.4 g/dL (3.5-5.1); Alkaline Phosphatase 206 U/L (38-126); Anion Gap -1 mmol/L (4-12); Aspartate Amino Transferase 85 U/L (14-36); Bilirubin,Total 0.6 mg/dL (0.2-1.3); Blood Urea Nitrogen 10 mg/dL (7-17); CRP 13.0 mg/dL (<1.0); Calcium 7.6 mg/dL (8.4-10.2); Carbon Dioxide 30 mmol/L (22-30); Chloride 104 mmol/L (98-107); Estimated CRCL calculation 81 ml/min; Estimated Glomerular Filt Rate > 60; Glucose 114 mg/dL (65-110); Magnesium 1.8 mg/dL (1.6-2.3); Potassium 3.3 mmol/L (3.4-5.0); Sodium 133 mmol/L (137-145); Total Protein 4.9 g/dL (6.3-8.2)
[2025-10-19] MEDS: HEPARIN SOD/D5W 100 UNITS/ML 25,000 UNITS/250 ML BAG 8 UNITS IV CONT (08:22)
[2025-10-19] MEDS: PANTOPRAZOLE SODIUM IV 40 MG VIAL IV PUSH (08:23)
[2025-10-19] MEDS: DOXYCYCLINE IV 100 MG in SODIUM CHLORIDE 0.9% IV 100 ML IVPB ×2 (08:24→20:15)
[2025-10-19] MEDS: MINERAL OIL/WHITE PETROLATUM OINTMENT 1 APPLIC EACH EYE ×2 (08:27→20:17)
[2025-10-19] MEDS: MAGNESIUM SULF 2 GM/WATER 50ML 2 GM/50 ML BAG IVPB (08:28)
[2025-10-19] MEDS: KCL 40 MEQ/WATER 100 ML 100 ML 25 ML IVPB (08:28)
[2025-10-19] MEDS: PRAVASTATIN SODIUM 20 MG TABLET 40 MG BY MOUTH (08:41)
[2025-10-19] MEDS: LEVOTHYROXINE SODIUM 50 MCG TABLET PO (08:41)
[2025-10-19] MEDS: BUDESONIDE RESPULE NEB 0.5 MG/2 ML AMP INHALATION ×2 (09:11→20:01)
--- NOTE | 2025-10-19 09:27 | P.PNINT_ITS ---
Assessment and Plan Assessment and Plan (1) Acute respiratory failure: Code(s): J96.00 - Acute respiratory failure, unspecified whether with hypoxia or hypercapnia Status: Acute Assessment and Plan: Acute hypoxic respiratory failure likely related to pneumonia/pneumonitis, pulmonary embolism -recently treated for pneumonia as outpatient. -10/17: chest x-ray this morning showed mild worsening of diffuse severe pneumonitis -continue meropenem and vancomycin (10/16) given patient is immunosuppressed -discussed with patient, son and daughter at bedside, explained to them regarding increased oxygen requirements, impending respiratory failure, lactic acidosis, elevated LFTs could be related to hypoperfusion. Patient and children are agreeable for intubation 10/18: Patient successfully intubated, currently on CMV mode of ventilation, ABGs reviewed post intubation, ventilator adjusted currently on peep of 10 and 60% FiO2 -continue bronchodilators and Pulmicort 10/18: Discuss with Dr. Yasir Gonzalez oncologist at [facility] who was her oncologist and treating of further breast cancer with Verzenio and anastrozole. He stated that Verzenio can cause pneumonitis in the have been case reports. Starting steroids 10/19: Thick secretions, added Mucomyst with DuoNeb. Patient also has bouts of coughing, added guaifenesin per tube. Continue steroids for pneumonitis/ARDS 10/16: Chest CTA MPRESSION: 1. Pulmonary emboli in subsegmental pulmonary arteries in the bilateral basilar lower lobes with relatively low clot burden and without evident right heart strain. Dr. French discussed these findings with Dr. Guadalupe at 4:40 PM. 2. Diffuse bilateral lung disease suspicious for atypical pneumonia with appearance similar to COVID pneumonia as manifest during the early stages of the pandemic. 3. Small amount of pneumomediastinum of indeterminate origin (2) Pneumonia: Code(s): J18.9 - Pneumonia, unspecified organism Status: Acute Assessment and Plan: As above (3) Pulmonary embolism: Code(s): I26.99 - Other pulmonary embolism without acute cor pulmonale Status: Acute Assessment and Plan: Continue heparin infusion, CTA PE protocol showed subsegmental pulmonary embolism in the bibasal lower lobes with low clot burden and without evidence of right heart strain. (4) Breast cancer: Code(s): C50.919 - Malignant neoplasm of unspecified site of unspecified female breast Status: Acute Assessment and Plan: Patient with breast cancer takes Verzenio, anastrozole, currently on hold, oncologist also agreed with holding these medications (5) Hx of supraventricular tachycardia: Code(s): Z86.79 - Personal history of other diseases of the circulatory system Status: Acute Assessment and Plan: Patient on Coreg, currently on hold. Heart rates are stable, regular rate and rhythm -continue to monitor (6) Hyperlipidemia: Code(s): E78.5 - Hyperlipidemia, unspecified Status: Acute Assessment and Plan: Continue pravastatin (7) Hypertension: Code(s): I10 - Essential (primary) hypertension Status: Acute Assessment and Plan: Patient was hypotensive overnight, likely related to sedation, requiring Levophed for a brief amount of time. Currently off Levophed (8) Pneumomediastinum: Code(s): J98.2 - Interstitial emphysema Status: Acute Assessment and Plan: Likely related to coughing -will continue Robitussin per tube -will continue to monitor VS chest x-ray Plan DVT prophylaxis: Heparin infusion Stress ulcer prophylaxis: Protonix (patient does take omeprazole at home) Nutrition: Will start tube feeds 10/18: PICC line inserted Code Status: Full code Critical Care Time Spent: 33 minutes Discuss with daughter Sirisha, son Yasir, and the patient and updated them with patient's condition and plan of care. Due to a high probability of clinically significant, life threatening deterioration, the patient required my highest level of preparedness to intervene emergently and I personally spent this critical care time directly and personally managing the patient. This critical care time included obtaining a history; examining the patient; pulse oximetry; ordering and review of studies; arranging urgent treatment with development of a management plan; evaluation of patient's response to treatment; frequent reassessment; and discussions with other providers. It was exclusive of separately billable procedures and treating other patients and teaching time. Please see Assessment and Plan section and the rest of the note for further information on patient assessment and treatment This dictation may have been done utilizing a voice recognition system. Attempts have been made to correct errors. However, there may be uncorrected grammatical, spelling, and recognitions errors present. Subjective Date/time seen: 10/19/25 09:27 Interval history: Reason for consult: Acute respiratory failure, pneumonia/pneumonitis, pulmonary embolism, presented to the ED on 10/16/2025 with complaints of cough, shortness of breath 10/18: Intubated 10/19/2025: Patient seen examined the ICU, remains intubated cough on CMV mode of ventilation, pee of 10, 55% FiO2. Sedated with fentanyl and Versed infusion, patient opens her eyes, follows simple commands. Urine output has been adequate, patient is afebrile. Was hypotensive overnight briefly requiring Levophed which currently is off. Lactic acid has normalized, LFTs trending down Review of Systems Review of Systems: All systems reviewed & are unremarkable except as noted in HPI and below Exam Narrative: General: Intubated on sedation, no acute distress HEENT:? Pupils equal and reactive, sclera is clear Neck:? Supple Respiratory:? Coarse breath sounds diffusely, no wheezing, decreased at base Cardiac:? S1-S2 is normal, regular rate and rhythm Abdomen:? Soft, nontender, nondistended, hypoactive bowel sounds Extremities:? Pitting edema bilateral lower extremities Neuro:? Intubated, sedated opens her eyes and follows simple commands Skin:? No skin lesions noted Psych:? Unable to assess at this time Objective Data Vital Signs Vital Signs: Vital Signs - 24 hr 10/18/25 09:35 10/18/25 09:45 10/18/25 09:45 Temperature Pulse Rate 98 137 H 129 H Respiratory Rate 24 H 24 H 24 H Blood Pressure Pulse Oximetry Oxygen Delivery Fraction of Inspired Oxygen 10/18/25 10:00 10/18/25 10:00 10/18/25 10:11 Temperature Pulse Rate 104 H 94 113 H Respiratory Rate 24 H 24 H Blood Pressure 137/101 H Pulse Oximetry 100 Oxygen Delivery Fraction of Inspired Oxygen 10/18/25 10:15 10/18/25 10:30 10/18/25 10:34 Temperature Pulse Rate 104 H 109 H 120 H Respiratory Rate 24 H 24 H 24 H Blood Pressure Pulse Oximetry Oxygen Delivery Fraction of Inspired Oxygen 10/18/25 10:53 10/18/25 11:00 10/18/25 11:12 Temperature 99.5 F Pulse Rate 99 98 110 H Respiratory Rate 20 20 Blood Pressure 118/78 Pulse Oximetry 99 99 Oxygen Delivery Mechanical Ventilation Fraction of Inspired Oxygen 65 10/18/25 11:16 10/18/25 12:00 10/18/25 12:00 Temperature Pulse Rate 101 H Respiratory Rate 20 Blood Pressure 114/73 Pulse Oximetry 96 100 Oxygen Delivery Mechanical Ventilation Fraction of Inspired Oxygen 60 10/18/25 12:00 10/18/25 12:00 10/18/25 12:00 Temperature 99.5 F Pulse Rate 100 100 100 Respiratory Rate 20 20 20 Blood Pressure 114/73 Pulse Oximetry 100 Oxygen Delivery Fraction of Inspired Oxygen 10/18/25 12:00 10/18/25 13:00 10/18/25 13:45 Temperature 99.5 F Pulse Rate 99 101 H 102 H Respiratory Rate 20 Blood Pressure 114/73 Pulse Oximetry 100 Oxygen Delivery Fraction of Inspired Oxygen 10/18/25 13:58 10/18/25 14:00 10/18/25 14:00 Temperature 100.2 F H Pulse Rate 100 101 H 104 H Respiratory Rate 20 20 20 Blood Pressure 92/59 L Pulse Oximetry 98 Oxygen Delivery Fraction of Inspired Oxygen 10/18/25 14:00 10/18/25 14:05 10/18/25 14:13 Temperature Pulse Rate 104 H 106 H 105 H Respiratory Rate 20 20 Blood Pressure Pulse Oximetry 96 Oxygen Delivery Mechanical Ventilation Fraction of Inspired Oxygen 55 10/18/25 15:00 10/18/25 15:08 10/18/25 15:36 Temperature 99.7 F H Pulse Rate 100 99 97 Respiratory Rate 20 20 20 Blood Pressure 88/55 L Pulse Oximetry 99 Oxygen Delivery Fraction of Inspired Oxygen 10/18/25 15:54 10/18/25 15:55 10/18/25 16:00 Temperature Pulse Rate 96 Respiratory Rate 20 Blood Pressure Pulse Oximetry 97 Oxygen Delivery Mechanical Ventilation Fraction of Inspired Oxygen 55 10/18/25 16:00 10/18/25 16:00 10/18/25 16:00 Temperature 99.4 F Pulse Rate 97 96 95 Respiratory Rate 20 20 Blood Pressure 88/59 L Pulse Oximetry 97 Oxygen Delivery Fraction of Inspired Oxygen 10/18/25 16:14 10/18/25 16:47 10/18/25 17:00 Temperature 99.2 F Pulse Rate 94 94 94 Respiratory Rate 20 20 20 Blood Pressure 99/60 L Pulse Oximetry 99 Oxygen Delivery Fraction of Inspired Oxygen 10/18/25 17:15 10/18/25 17:43 10/18/25 18:00 Temperature 98.9 F Pulse Rate 116 H 90 86 Respiratory Rate 20 Blood Pressure 92/55 L Pulse Oximetry 95 95 Oxygen Delivery Mechanical Ventilation Fraction of Inspired Oxygen 50 10/18/25 18:00 10/18/25 18:04 10/18/25 18:53 Temperature Pulse Rate 90 90 91 Respiratory Rate 20 20 20 Blood Pressure Pulse Oximetry Oxygen Delivery Fraction of Inspired Oxygen 10/18/25 18:54 10/18/25 19:00 10/18/25 19:06 Temperature 98.7 F Pulse Rate 94 80 91 Respiratory Rate 20 20 26 H Blood Pressure 92/56 L Pulse Oximetry 95 Oxygen Delivery Fraction of Inspired Oxygen 10/18/25 19:07 10/18/25 19:41 10/18/25 19:47 Temperature 98.7 F Pulse Rate 95 85 83 Respiratory Rate 26 H 20 Blood Pressure 88/56 L 86/56 L Pulse Oximetry 96 Oxygen Delivery Fraction of Inspired Oxygen 10/18/25 19:50 10/18/25 20:00 10/18/25 20:00 Temperature 98.5 F Pulse Rate 63 61 60 Respiratory Rate 20 20 20 Blood Pressure 176/90 H Pulse Oximetry 100 100 Oxygen Delivery Mechanical Ventilation Fraction of Inspired Oxygen 55 10/18/25 20:00 10/18/25 20:00 10/18/25 20:00 Temperature Pulse Rate 60 63 Respiratory Rate 20 Blood Pressure 176/90 H Pulse Oximetry Oxygen Delivery Fraction of Inspired Oxygen 55 10/18/25 20:00 10/18/25 20:10 10/18/25 20:10 Temperature 98.5 F Pulse Rate 65 75 75 Respiratory Rate 20 Blood Pressure 145/81 H 145/81 H Pulse Oximetry 98 Oxygen Delivery Fraction of Inspired Oxygen 10/18/25 20:20 10/18/25 20:22 10/18/25 20:22 Temperature 98.5 F 98.5 F Pulse Rate 93 94 93 Respiratory Rate 20 20 Blood Pressure 120/73 86/57 L 86/57 L Pulse Oximetry 95 94 Oxygen Delivery Fraction of Inspired Oxygen 10/18/25 20:35 10/18/25 20:35 10/18/25 20:45 Temperature 98.5 F 98.5 F Pulse Rate 91 93 92 Respiratory Rate 20 20 Blood Pressure 89/57 L 89/57 L 106/72 Pulse Oximetry 95 93 Oxygen Delivery Fraction of Inspired Oxygen 10/18/25 20:46 10/18/25 20:47 10/18/25 21:00 Temperature 98.5 F Pulse Rate 83 85 90 Respiratory Rate 20 20 Blood Pressure 102/65 Pulse Oximetry 93 94 Oxygen Delivery Mechanical Ventilation Fraction of Inspired Oxygen 55 10/18/25 21:09 10/18/25 22:00 10/18/25 22:00 Temperature 98.3 F Pulse Rate 87 86 85 Respiratory Rate 20 20 Blood Pressure 124/73 Pulse Oximetry 95 Oxygen Delivery Fraction of Inspired Oxygen 10/18/25 22:00 10/18/25 22:00 10/18/25 22:00 Temperature Pulse Rate 86 86 89 Respiratory Rate 20 20 Blood Pressure 124/73 Pulse Oximetry Oxygen Delivery Fraction of Inspired Oxygen 10/18/25 22:15 10/18/25 23:00 10/18/25 23:24 Temperature 98.3 F 98.3 F Pulse Rate 86 85 81 Respiratory Rate 20 20 Blood Pressure 115/72 104/68 Pulse Oximetry 95 95 95 Oxygen Delivery Mechanical Ventilation Fraction of Inspired Oxygen 55 10/18/25 23:29 10/18/25 23:34 10/18/25 23:57 Temperature Pulse Rate 81 82 Respiratory Rate 20 20 Blood Pressure Pulse Oximetry 95 Oxygen Delivery Mechanical Ventilation Fraction of Inspired Oxygen 55 55 10/18/25 23:57 10/19/25 00:00 10/19/25 00:00 Temperature Pulse Rate 82 80 81 Respiratory Rate 20 20 Blood Pressure 107/68 Pulse Oximetry Oxygen Delivery Fraction of Inspired Oxygen 10/19/25 00:00 10/19/25 00:00 10/19/25 01:00 Temperature 98.1 F 98 F Pulse Rate 78 82 80 Respiratory Rate 20 20 Blood Pressure 107/68 123/74 Pulse Oximetry 97 96 Oxygen Delivery Fraction of Inspired Oxygen 10/19/25 01:00 10/19/25 01:08 10/19/25 01:08 Temperature 98.0 F Pulse Rate 81 79 78 Respiratory Rate 20 20 Blood Pressure 123/74 123/74 Pulse Oximetry 96 Oxygen Delivery Fraction of Inspired Oxygen 10/19/25 01:08 10/19/25 01:15 10/19/25 02:00 Temperature 98 F Pulse Rate 78 85 87 Respiratory Rate 20 20 Blood Pressure 104/68 Pulse Oximetry 95 Oxygen Delivery Fraction of Inspired Oxygen 10/19/25 02:00 10/19/25 02:00 10/19/25 02:00 Temperature 98.1 F Pulse Rate 87 87 87 Respiratory Rate 20 20 Blood Pressure 94/57 L 94/57 L Pulse Oximetry 95 Oxygen Delivery Fraction of Inspired Oxygen 10/19/25 02:00 10/19/25 02:37 10/19/25 02:37 Temperature Pulse Rate 87 89 89 Respiratory Rate 20 20 Blood Pressure Pulse Oximetry 95 Oxygen Delivery Mechanical Ventilation Fraction of Inspired Oxygen 55 10/19/25 03:00 10/19/25 04:00 10/19/25 04:00 Temperature 97.9 F Pulse Rate 87 79 79 Respiratory Rate 20 20 Blood Pressure 93/60 L 92/59 L Pulse Oximetry 95 Oxygen Delivery Fraction of Inspired Oxygen 10/19/25 04:00 10/19/25 04:00 10/19/25 04:00 Temperature Pulse Rate 79 79 Respiratory Rate 20 20 Blood Pressure Pulse Oximetry 95 Oxygen Delivery Mechanical Ventilation Fraction of Inspired Oxygen 55 55 10/19/25 04:00 10/19/25 04:00 10/19/25 05:00 Temperature 98.1 F 98.1 F Pulse Rate 84 80 78 Respiratory Rate 20 18 Blood Pressure 92/59 L 104/86 Pulse Oximetry 96 98 Oxygen Delivery Fraction of Inspired Oxygen 10/19/25 05:05 10/19/25 06:00 10/19/25 06:00 Temperature 98.2 F Pulse Rate 76 79 75 Respiratory Rate 20 Blood Pressure 90/55 L Pulse Oximetry 99 95 Oxygen Delivery Mechanical Ventilation Fraction of Inspired Oxygen 55 10/19/25 06:00 10/19/25 06:00 10/19/25 06:00 Temperature Pulse Rate 78 75 75 Respiratory Rate 20 20 Blood Pressure 90/55 L Pulse Oximetry Oxygen Delivery Fraction of Inspired Oxygen 10/19/25 07:00 10/19/25 08:00 10/19/25 08:00 Temperature 98.2 F Pulse Rate 83 93 94 Respiratory Rate 20 20 20 Blood Pressure 96/56 L Pulse Oximetry 94 Oxygen Delivery Fraction of Inspired Oxygen 10/19/25 08:00 10/19/25 08:00 10/19/25 08:00 Temperature 98.7 F Pulse Rate 91 Respiratory Rate 18 Blood Pressure 95/56 L Pulse Oximetry 92 Oxygen Delivery Mechanical Ventilation Fraction of Inspired Oxygen 50 50 10/19/25 08:00 10/19/25 08:30 10/19/25 09:00 Temperature 98.7 F Pulse Rate 92 93 91 Respiratory Rate 20 20 Blood Pressure 102/60 102/60 Pulse Oximetry 93 Oxygen Delivery Fraction of Inspired Oxygen 10/19/25 09:11 10/19/25 09:15 10/19/25 09:18 Temperature Pulse Rate 96 95 99 Respiratory Rate 18 19 Blood Pressure Pulse Oximetry 94 Oxygen Delivery Mechanical Ventilation Fraction of Inspired Oxygen 50 Intake/Output Intake/Output: Intake & Output 10/16/25 10/17/25 10/18/25 10/19/25 23:59 23:59 23:59 23:59 Intake Total 1050 4476.3 1527.3 687.0 Output Total 400 2680 1050 510 Balance 650 1796.3 477.3 177.0 Meds/Results Medications: Active Medications Generic Name Dose Route Start Last Admin Trade Name Freq PRN Reason Stop Dose Admin Acetaminophen 650 mg 10/16/25 19:07 Acetaminophen 325 Mg Tablet PO Q4H PRN Mild Pain (1-3) or Fever Hydrocodone Bitart/Acetaminophen 1 tab 10/16/25 19:07 Hydrocodone/Acetaminophen (*Crx) 5-325 Mg Tablet PO Q4H PRN Moderate Pain (4-6) Albuterol/Ipratropium 3 ml 10/17/25 14:00 10/19/25 09:11 Ipratropium 0.5 Mg/Albuterol Sulfate 2.5 Mg (Base) Ampul.Neb 3 Ml INHALATION 3 ml Q6HRT [facility] Administration Amitriptyline HCl 50 mg 10/16/25 22:35 10/17/25 21:37 Amitriptyline Hcl 25 Mg Tablet PO Not Given On Hold: 10/18/25 10:18 QHS [facility] Anastrozole 1 mg 10/17/25 09:00 10/18/25 10:26 Anastrozole (*Chemo) 1 Mg Tablet PO Not Given On Hold: 10/18/25 10:18 DAILY [facility] Apixaban 10 mg 10/17/25 09:00 Apixaban 5 Mg Tablet PO On Hold: 10/17/25 09:00 Q12HR [facility] Comment: HEPARIN DRIP STARTED Budesonide 0.5 mg 10/17/25 09:50 10/19/25 09:11 Budesonide Respule Neb 0.5 Mg/2 Ml Amp INHALATION 0.5 mg Q12HRT [facility] Administration Carvedilol 40 mg 10/17/25 08:00 10/17/25 10:07 Carvedilol Cr 10 Mg Capsule PO Not Given On Hold: 10/17/25 09:00 DAILY@0800 [facility] Dextrose 12.5 gm 10/19/25 07:37 Dextrose 50% 25 Gm/50 Ml Syringe IV PUSH PRN PRN Hypoglycemia Protocol Docusate Sodium 100 mg 10/17/25 09:00 Docusate Sodium 100 Mg Capsule PO On Hold: 10/17/25 09:00 Q12HR [facility] Duloxetine HCl 60 mg 10/17/25 09:00 Duloxetine Hcl 60 Mg Capsule.Dr BY MOUTH On Hold: 10/17/25 09:00 DAILY [facility] Gabapentin 600 mg 10/16/25 19:35 10/16/25 20:13 Gabapentin 300 Mg Capsule PO 600 mg On Hold: 10/17/25 09:00 QPM [facility] Administration Gabapentin 300 mg 10/17/25 09:00 Gabapentin 300 Mg Capsule PO On Hold: 10/17/25 09:00 QAM [facility] Glucagon 1 mg 10/19/25 07:37 Glucagon For Inj 1 Mg Vial IM PRN PRN Hypoglycemia Protocol Glucose 15 gm 10/19/25 07:37 Glucose Oral Gel 15 Gm Of Glucse In 37.5 Gm Tube PO PRN PRN Hypoglycemia Protocol Guaifenesin 1,200 mg 10/16/25 21:00 10/18/25 11:47 Guaifenesin 12 Hr 600 Mg Tabcr PO Not Given On Hold: 10/18/25 19:28 Q12HR [facility] Resume: 10/25/25 09:00 Heparin Sodium (Porcine) 4,000 units 10/17/25 01:19 10/17/25 14:25 Heparin Sodium 5,000 Units/Ml Vial IV PUSH 4,000 units PRN PRN Administration aPTT less than 55 seconds Heparin Sodium (Porcine) 2,500 units 10/17/25 01:19 10/18/25 05:30 Heparin Sodium 5,000 Units/Ml Vial IV PUSH 2,500 units PRN PRN Administration aPTT 55 - 70 seconds Heparin Sodium/Dextrose 25,000 units in 250 mls @ 8 mls/hr 10/17/25 01:19 10/19/25 08:22 Heparin Sodium/D5w 100 Units/Ml IV CONT 800 units/hr .Q24H [facility] 8 mls/hr Protocol Administration 800 UNITS/HR Meropenem 1 gm/ Sodium 100 mls @ 200 mls/hr 10/17/25 18:00 10/19/25 05:30 Chloride IVPB Infused Q12H [facility] Infusion Doxycycline Hyclate 100 mg/ 100 mls @ 100 mls/hr 10/17/25 21:00 10/19/25 08:24 Sodium Chloride IVPB 100 mls/hr Q12H [facility] Administration Fentanyl Citrate 2,500 mcg in 250 mls @ 17.5 mls/hr 10/18/25 09:20 10/19/25 08:00 Fentanyl 2,500 Mcg/Ns 250 Ml IV CONT 175 mcg/hr .[id number] [facility] 17.5 mls/hr Protocol Titration 175 MCG/HR Midazolam HCl 100 mg in 100 mls @ 7 mls/hr 10/18/25 09:20 10/19/25 08:30 Versed 100 Mg/Ns 100 Ml IV CONT 7 mg/hr .[id number] [facility] 7 mls/hr Protocol Titration 7 MG/HR Norepinephrine Bitartrate 8 mg in 250 mls @ 0 mls/hr 10/18/25 19:40 10/19/25 08:00 Levophed 8 Mg/D5w 250 Ml IV CONT 0 mcg/min .Q0M [facility] 0 mls/hr Protocol Titration Vancomycin HCl 1,250 mg in 250 mls @ 166.667 mls/hr 10/19/25 04:00 10/19/25 06:14 Vancomycin 1,250 Mg/Ns 250 Ml IVPB Infused Q12H [facility] Infusion Potassium Chloride 100 mls @ 25 mls/hr 10/19/25 07:36 10/19/25 08:28 Kcl 40 Meq/Water 100 Ml IVPB 10/19/25 11:35 25 mls/hr ONCE ONE Administration Dextrose 1,000 mls @ 100 mls/hr 10/19/25 07:37 Dextrose 5% 1,000 Ml IVPB PRN PRN Hypoglycemia Protocol Insulin Aspart 3 - 6 units 10/19/25 12:00 Insulin Aspart (*Bkc) 100 Units/Ml SUB-Q Q6HR [facility] Protocol Levothyroxine Sodium 50 mcg 10/17/25 06:30 10/19/25 08:41 Levothyroxine Sodium 50 Mcg Tablet PO 50 mcg DAILY@0630 [facility] Administration Methocarbamol 500 mg 10/16/25 18:45 Methocarbamol 500 Mg Tablet PO On Hold: 10/17/25 09:00 QID PRN Spasms Methylprednisolone Sodium Succinate 60 mg 10/19/25 08:00 10/19/25 08:34 Methylprednisolone Sod Succ 125 Mg Vial IV PUSH 60 mg Q6H [facility] Administration Multi-Ingred Cream/Lotion/Oil/Oint 1 applic 10/18/25 21:00 10/19/25 08:27 Mineral Oil/White Petrolatum Ointment EACH EYE 1 applic Q12HR [facility] Administration Home Med (Vibegron [ 75 mg 10/17/25 09:00 10/18/25 10:28 Gemtesa] 75 Mg PO 11/16/25 08:59 Not Given Tablet) DAILY [facility] On Hold: 10/18/25 10:20 Ondansetron HCl 4 mg 10/17/25 07:51 10/18/25 06:55 Ondansetron Inj 4 Mg/2 Ml Vial IV PUSH 4 mg Q6H PRN Administration Nausea And Vomiting Pantoprazole Sodium 40 mg 10/18/25 09:00 10/19/25 08:23 Pantoprazole Sodium Iv 40 Mg Vial IV PUSH 40 mg QAM [facility] Administration Perflutren Lipid Microsphere 0 ml 10/19/25 07:39 Perflutren Lipid Microspheres 1.5 Ml Vial Diluted To 10 Ml Total Volume IV PUSH 10/22/25 07:39 ONCE PRN adequate visualization Protocol Pravastatin Sodium 40 mg 10/16/25 19:05 10/19/25 08:41 Pravastatin Sodium 20 Mg Tablet BY MOUTH 40 mg DAILY [facility] Administration Prochlorperazine Maleate 10 mg 10/16/25 22:25 10/16/25 23:12 Prochlorperazine Maleate 5 Mg Tablet PO 10 mg On Hold: 10/17/25 09:00 Q8H PRN Administration Nausea And Vomiting Sodium Chloride 10 ml 10/18/25 14:00 10/19/25 04:54 Central Line Flush IV PUSH 10 ml Q8HR [facility] Administration Sodium Chloride 10 ml 10/18/25 10:10 Central Line Flush IV PUSH PRN PRN with TPN bag changes Sodium Chloride 20 ml 10/18/25 10:10 Central Line Flush IV PUSH PRN PRN after blood draws Radiology Results: ITS Impressions Chest CTA 10/16/25 16:25 IMPRESSION: 1. Pulmonary emboli in subsegmental pulmonary arteries in the bilateral basilar lower lobes with relatively low clot burden and without evident right heart strain. Dr. French discussed these findings with Dr. Guadalupe at 4:40 PM. 2. Diffuse bilateral lung disease suspicious for atypical pneumonia with appearance similar to COVID pneumonia as manifest during the early stages of the pandemic. 3. Small amount of pneumomediastinum of indeterminate origin. Labs Labs: Laboratory Results - last 24 hr 10/16/25 10/16/25 10/18/25 19:08 20:02 08:22 WBC RBC Hgb Hct MCV MCH MCHC RDW Plt Count MPV Immature Gran % (Auto) Neut % (Auto) Lymph % (Auto) [place] % (Auto) Eos % (Auto) Baso % (Auto) Lymph # (Auto) [place] # (Auto) Eos # (Auto) Baso # (Auto) Abs Immat Gran (auto) Absolute Neuts (auto) Absolute Nucleated RBC Band Neutrophils % Nucleated RBC % Platelet Estimate % Immature Plt Fraction Polychromasia Hypochromasia Anisocytosis Macrocytosis Schistocytes APTT Puncture Site ABG pH ABG pCO2 ABG pO2 ABG PO2/FiO2 Ratio ABG HCO3 ABG O2 Saturation ABG O2 Content ABG Base Excess A-a Gradient Oxyhemoglobin Carboxyhemoglobin Methemoglobin Reduced Hemoglobin Total Hemoglobin O2 Delivery Device O2 Liters/Min Minute Volume Vent Rate Vent Mode FiO2 Tidal Volume PEEP Peak Inspir Pressure Pressure Support Sodium Potassium Chloride Carbon Dioxide Anion Gap BUN Creatinine Estim Creat Clear Calc Estimated GFR Glucose POC Capillary Glucose Lactic Acid Calcium Phosphorus Magnesium Total Bilirubin AST ALT Alkaline Phosphatase C-Reactive Protein Total Protein Albumin Vancomycin Trough Chlamy pneumoniae PCR Not detected Adenovirus (PCR) Not detected B. pertussis DNA (PCR) Not detected B.parapertussis DNA PCR Not detected Coronavirus OC43 (PCR) Not detected Coronavirus HKU1 (PCR) Not detected Coronavirus 229E (PCR) Not detected Coronavirus NL63 (PCR) Not detected Human Metapneumovir PCR Not detected Influenza A (RT-PCR) Negative Influenza A (H1) PCR Not detected Influ A (H1/09) PCR Not detected Influenza A (H3) PCR Not detected Influenza Type A (PCR) Not detected Influenza B (RT-PCR) Negative Influenza Type B (PCR) Not detected M.pneumoniae IgM Titer <770 M. pneumoniae (PCR) Not detected Parainfluenza 1 (PCR) Not detected Parainfluenza 2 (PCR) Not detected Parainfluenza 3 (PCR) Not detected Parainfluenza 4 (PCR) Not detected RSV (RT-PCR) Negative RSV (PCR) Not detected Entero/Rhino (PCR) Not detected SARS-CoV-2 (PCR) Not detected SARS-CoV-2 RNA (RT-PCR) Negative 10/18/25 10/18/25 10/18/25 10:04 11:42 12:51 WBC RBC Hgb Hct MCV MCH MCHC RDW Plt Count MPV Immature Gran % (Auto) Neut % (Auto) Lymph % (Auto) [place] % (Auto) Eos % (Auto) Baso % (Auto) Lymph # (Auto) [place] # (Auto) Eos # (Auto) Baso # (Auto) Abs Immat Gran (auto) Absolute Neuts (auto) Absolute Nucleated RBC Band Neutrophils % Nucleated RBC % Platelet Estimate % Immature Plt Fraction Polychromasia Hypochromasia Anisocytosis Macrocytosis Schistocytes APTT 86.1 H Puncture Site Left radial ABG pH 7.470 H ABG pCO2 35.2 ABG pO2 167.7 H ABG PO2/FiO2 Ratio 1.68 ABG HCO3 25.0 ABG O2 Saturation 99.2 ABG O2 Content 15.6 L ABG Base Excess 1.6 A-a Gradient 510.1 Oxyhemoglobin 97.7 Carboxyhemoglobin Methemoglobin Reduced Hemoglobin Total Hemoglobin 11.1 L O2 Delivery Device Ventilator O2 Liters/Min Not Reportable Minute Volume Not Reportable Vent Rate 24 Vent Mode Cmv FiO2 100 Tidal Volume 350 PEEP 10 Peak Inspir Pressure Not Reportable Pressure Support Not Reportable Sodium Potassium Chloride Carbon Dioxide Anion Gap BUN Creatinine Estim Creat Clear Calc Estimated GFR Glucose POC Capillary Glucose 97 Lactic Acid Calcium Phosphorus Magnesium Total Bilirubin AST ALT Alkaline Phosphatase C-Reactive Protein Total Protein Albumin Vancomycin Trough Chlamy pneumoniae PCR Adenovirus (PCR) B. pertussis DNA (PCR) B.parapertussis DNA PCR Coronavirus OC43 (PCR) Coronavirus HKU1 (PCR) Coronavirus 229E (PCR) Coronavirus NL63 (PCR) Human Metapneumovir PCR Influenza A (RT-PCR) Influenza A (H1) PCR Influ A (H1) PCR Influenza A (H3) PCR Influenza Type A (PCR) Influenza B (RT-PCR) Influenza Type B (PCR) M.pneumoniae IgM Titer M. pneumoniae (PCR) Parainfluenza 1 (PCR) Parainfluenza 2 (PCR) Parainfluenza 3 (PCR) Parainfluenza 4 (PCR) RSV (RT-PCR) RSV (PCR) Entero/Rhino (PCR) SARS-CoV-2 (PCR) SARS-CoV-2 RNA (RT-PCR) 10/18/25 10/18/25 10/18/25 17:34 18:49 23:49 WBC RBC Hgb Hct MCV MCH MCHC RDW Plt Count MPV Immature Gran % (Auto) Neut % (Auto) Lymph % (Auto) [place] % (Auto) Eos % (Auto) Baso % (Auto) Lymph # (Auto) [place] # (Auto) Eos # (Auto) Baso # (Auto) Abs Immat Gran (auto) Absolute Neuts (auto) Absolute Nucleated RBC Band Neutrophils % Nucleated RBC % Platelet Estimate % Immature Plt Fraction Polychromasia Hypochromasia Anisocytosis Macrocytosis Schistocytes APTT 77.8 H Puncture Site ABG pH ABG pCO2 ABG pO2 ABG PO2/FiO2 Ratio ABG HCO3 ABG O2 Saturation ABG O2 Content ABG Base Excess A-a Gradient Oxyhemoglobin Carboxyhemoglobin Methemoglobin Reduced Hemoglobin Total Hemoglobin O2 Delivery Device O2 Liters/Min Minute Volume Vent Rate Vent Mode FiO2 Tidal Volume PEEP Peak Inspir Pressure Pressure Support Sodium Potassium Chloride Carbon Dioxide Anion Gap BUN Creatinine Estim Creat Clear Calc Estimated GFR Glucose POC Capillary Glucose 141 H 153 H Lactic Acid Calcium Phosphorus Magnesium Total Bilirubin AST ALT Alkaline Phosphatase C-Reactive Protein Total Protein Albumin Vancomycin Trough Chlamy pneumoniae PCR Adenovirus (PCR) B. pertussis DNA (PCR) B.parapertussis DNA PCR Coronavirus OC43 (PCR) Coronavirus HKU1 (PCR) Coronavirus 229E (PCR) Coronavirus NL63 (PCR) Human Metapneumovir PCR Influenza A (RT-PCR) Influenza A (H1) PCR Influ A (H1/09) PCR Influenza A (H3) PCR Influenza Type A (PCR) Influenza B (RT-PCR) Influenza Type B (PCR) M.pneumoniae IgM Titer M. pneumoniae (PCR) Parainfluenza 1 (PCR) Parainfluenza 2 (PCR) Parainfluenza 3 (PCR) Parainfluenza 4 (PCR) RSV (RT-PCR) RSV (PCR) Entero/Rhino (PCR) SARS-CoV-2 (PCR) SARS-CoV-2 RNA (RT-PCR) 10/19/25 10/19/25 10/19/25 03:05 04:34 04:57 WBC 3.6 L RBC 2.09 L Hgb 8.5 L Hct 24.3 L MCV 116.3 H MCH 40.7 H MCHC 35.0 RDW 15.6 H Plt Count 106 L MPV 9.7 Immature Gran % (Auto) 0.6 H Neut % (Auto) 87.5 H Lymph % (Auto) 8.9 L [place] % (Auto) 3.0 Eos % (Auto) 0.0 Baso % (Auto) 0.0 L Lymph # (Auto) 0.32 L [place] # (Auto) 0.1 Eos # (Auto) 0.0 Baso # (Auto) 0.0 Abs Immat Gran (auto) 0.02 Absolute Neuts (auto) 3.2 Absolute Nucleated RBC 0.000 Band Neutrophils % Not Reportable Nucleated RBC % 0.0 Platelet Estimate Decreased % Immature Plt Fraction 2.0 Polychromasia Occasional Hypochromasia 1+ Anisocytosis 1+ Macrocytosis 1+ Schistocytes None seen APTT 148.0 H Puncture Site Right brachial ABG pH 7.459 H ABG pCO2 39.6 ABG pO2 71.7 L ABG PO2/FiO2 Ratio 1.30 ABG HCO3 27.5 H ABG O2 Saturation 95.2 ABG O2 Content 12.3 L ABG Base Excess 3.4 A-a Gradient 276.4 Oxyhemoglobin 92.5 Carboxyhemoglobin 1.0 Methemoglobin 0.3 Reduced Hemoglobin 6.2 H Total Hemoglobin 9.4 L O2 Delivery Device Ventilator O2 Liters/Min Not Reportable Minute Volume Not Reportable Vent Rate 20 Vent Mode Cmv FiO2 55 Tidal Volume 350 PEEP 10 Peak Inspir Pressure Not Reportable Pressure Support Not Reportable Sodium 133 L Potassium 3.3 L Chloride 104 Carbon Dioxide 30 Anion Gap -1 L BUN 10 Creatinine 0.53 L Estim Creat Clear Calc 81 Estimated GFR > 60 Glucose 114 H POC Capillary Glucose Lactic Acid 1.1 Calcium 7.6 L Phosphorus 2.9 Magnesium 1.8 Total Bilirubin 0.6 AST 85 H ALT 141 H Alkaline Phosphatase 206 H C-Reactive Protein 13.0 H Total Protein 4.9 L Albumin 2.4 L Vancomycin Trough 5.3 L Chlamy pneumoniae PCR Adenovirus (PCR) B. pertussis DNA (PCR) B.parapertussis DNA PCR Coronavirus OC43 (PCR) Coronavirus HKU1 (PCR) Coronavirus 229E (PCR) Coronavirus NL63 (PCR) Human Metapneumovir PCR Influenza A (RT-PCR) Influenza A (H1) PCR Influ A (H1/09) PCR Influenza A (H3) PCR Influenza Type A (PCR) Influenza B (RT-PCR) Influenza Type B (PCR) M.pneumoniae IgM Titer M. pneumoniae (PCR) Parainfluenza 1 (PCR) Parainfluenza 2 (PCR) Parainfluenza 3 (PCR) Parainfluenza 4 (PCR) RSV (RT-PCR) RSV (PCR) Entero/Rhino (PCR) SARS-CoV-2 (PCR) SARS-CoV-2 RNA (RT-PCR) Quality VTE Prophylaxis VTE prophylaxis: pharmacologic ordered
[2025-10-19] MEDS: PROPOFOL IV EMULSION 100 ML 2.27 MG IV CONT (10:37)
[2025-10-19 11:34] LABS: Triglycerides 114 mg/dL (<150)
[2025-10-19 12:25] LABS: Partial Thromboplastin Time 68.8 Seconds (22.3-36.8)
[2025-10-19] MEDS: MIDAZOLAM 100MG/NS 100ML(*CRX) 100 MG/100 ML BAG IV CONT (14:25)
[2025-10-19] MEDS: ACETYLCYSTEINE 20% INHAL SOLN 800 MG/4 ML VIAL 200 MG INHALATION ×2 (14:36→20:01)
[2025-10-19] MEDS: PERFLUTREN LIPID MICROSPHERES 1.5 ML VIAL DILUTED TO 10 ML TOTAL VOLUME IV PUSH (14:46)
--- NOTE | 2025-10-19 14:47 | IVDEFINITY ---
Prior to administration of IV Definity the patient was educated on the risks and benefits of the imaging enhancing agent including potential adverse side effects. The patient verbalized understanding. Allergies were verified. No exclusion criteria were identified and at least one of the following inclusion criteria were met: 1) physician request, 2) patient technically difficult to image (per the [place] [employer] guidelines of two or more segments not discernable within the apical view), or 3) questionable left ventricular function. ?
[2025-10-19] MEDS: FENTANYL 2,500MCG/NS250ML(*CRX 2,500 MCG/250 ML BAG 12.5 MCG IV CONT (15:50)
[2025-10-19] MEDS: VANCOMYCIN 1,250 MG/NS 250 ML 1,250 MG/250 ML BAG 166 MG IVPB (15:51)
[2025-10-19 19:35] LABS: Partial Thromboplastin Time 79.8 Seconds (22.3-36.8)
[2025-10-20] VITALS (56 sets, daily range): BP systolic 94–116; BP diastolic 58–97; PULSE 88–116; RESP 16–30; TEMP 36.7–37.2; O2SAT 90–100
[2025-10-20] MEDS: PROPOFOL IV EMULSION 100 ML 11.33 MG IV CONT (00:30)
[2025-10-20 01:20] LABS: Partial Thromboplastin Time 78.3 Seconds (22.3-36.8)
[2025-10-20] MEDS: ACETYLCYSTEINE 20% INHAL SOLN 800 MG/4 ML VIAL 200 MG INHALATION ×4 (03:12→22:13)
[2025-10-20] MEDS: IPRATROPIUM 0.5 MG/ALBUTEROL SULFATE 2.5 MG (BASE) AMPUL.NEB 3 ML INHALATION ×4 (03:12→22:13)
[2025-10-20] MEDS: VANCOMYCIN 1,250 MG/NS 250 ML 1,250 MG/250 ML BAG 166 MG IVPB (03:13)
[2025-10-20 04:58] LABS: Hematocrit 25.5 % (37.0-47.0); Hemoglobin 8.9 g/dL (12.0-15.0); Immature Granulocyte Percent A 1.0 % (0-0.5); Immature Platelet Fraction Pct 2.8 % (0.9-11.2); Lymphocytes Absolute Auto 0.15 K/mm3 (0.9-3.2); Mean Corpuscular HGB Conc 34.9 g/dl (32-36); Mean Corpuscular Hemoglobin 41.0 pg (26-34); Mean Corpuscular Volume 117.5 fl (80-100); Nucleated Red Blood Cells Absolute Auto 0.000 K/mm3 (0.0-0.012); Nucleated Red Blood Cells Perc 0.0 % (0.0-0.2); Platelet Count Result 107 k/mm3 (150-375); Red Blood Count 2.17 M/mm3 (4.2-5.4); White Blood Count 4.8 K/mm3 (4.5-10.0)
[2025-10-20 05:00] LABS: Alveolar/Arterial O2 Gradient 331.0 mmHg; Carboxyhemoglobin 1.4 % THb (0-2.0); Fractional Inspired Oxygen 60 %; HCO3 ABG 24.4 mEq/l (22.0-26.0); Methemoglobin ABG 0.0 %THb (0-1.5); Oxygen Content ABG 13.4 %vol (16.0-22.0); PCO2 ABG 41.3 mmHg (35.0-45.0); PO2 ABG 51.4 mmHg (80.0-100.0); PO2 FiO2 Ratio Arterial Blood 0.86 %; Reduced Hemoglobin 14.4 %THb (0-5.0)
[2025-10-20 05:16] LABS: Alanine Aminotransferase 98 U/L (6-35); Albumin Level 2.7 g/dL (3.5-5.1); Alkaline Phosphatase 196 U/L (38-126); Anion Gap -1 mmol/L (4-12); Aspartate Amino Transferase 37 U/L (14-36); Bilirubin,Total 0.4 mg/dL (0.2-1.3); Blood Urea Nitrogen 14 mg/dL (7-17); CRP 8.6 mg/dL (<1.0); Calcium 8.0 mg/dL (8.4-10.2); Carbon Dioxide 29 mmol/L (22-30); Chloride 105 mmol/L (98-107); Estimated CRCL calculation 95 ml/min; Estimated Glomerular Filt Rate > 60; Glucose 175 mg/dL (65-110); Magnesium 2.6 mg/dL (1.6-2.3); Potassium 3.8 mmol/L (3.4-5.0); Sodium 133 mmol/L (137-145); Total Protein 5.5 g/dL (6.3-8.2)
[2025-10-20 05:24] LABS: INR 1.2; Prothrombin Time 15.2 Seconds (11.1-14.7)
[2025-10-20 05:25] LABS: Partial Thromboplastin Time 93.3 Seconds (22.3-36.8)
[2025-10-20] MEDS: MEROPENEM 1 GM in SODIUM CHLORIDE 0.9% IV 100 ML 200 ML IVPB ×2 (05:25→17:43)
[2025-10-20] MEDS: CENTRAL LINE FLUSH 10 ML IV PUSH ×3 (05:27→20:18)
[2025-10-20] MEDS: CENTRAL LINE FLUSH 20 ML IV PUSH (05:27)
[2025-10-20] MEDS: LEVOTHYROXINE SODIUM 50 MCG TABLET PO (05:30)
[2025-10-20] MEDS: PROPOFOL IV EMULSION 100 ML 18.12 MG IV CONT (05:31)
[2025-10-20 05:52] LABS: Modified Allen's Test Pass; Site Drawn RIGHT RADIAL
[2025-10-20] MEDS: BUDESONIDE RESPULE NEB 0.5 MG/2 ML AMP INHALATION ×2 (07:51→22:13)
[2025-10-20] MEDS: MIDAZOLAM HCL (*CRX) 2 MG/2 ML VIAL IV PUSH (08:40)
[2025-10-20] MEDS: POTASSIUM/PHOSPHORUS/SODIUM 1.5 GM PACKET 1 PACKET PO (09:13)
[2025-10-20] MEDS: PANTOPRAZOLE SODIUM IV 40 MG VIAL IV PUSH (09:13)
[2025-10-20] MEDS: PRAVASTATIN SODIUM 20 MG TABLET 40 MG BY MOUTH (09:13)
[2025-10-20] MEDS: DOXYCYCLINE IV 100 MG in SODIUM CHLORIDE 0.9% IV 100 ML IVPB ×2 (09:14→20:17)
[2025-10-20] MEDS: MINERAL OIL/WHITE PETROLATUM OINTMENT 1 APPLIC EACH EYE ×2 (09:14→20:18)
[2025-10-20] MEDS: PROPOFOL IV EMULSION 100 ML 22.65 MG IV CONT ×4 (10:29→22:30)
[2025-10-20 12:05] LABS: Alveolar/Arterial O2 Gradient 383.9 mmHg; Fractional Inspired Oxygen 70 %; HCO3 ABG 26.6 mEq/l (22.0-26.0); Oxygen Content ABG 12.6 %vol (16.0-22.0); Oxygen Saturation ABG 93.9 % (95.0-100.0); PCO2 ABG 43.1 mmHg (35.0-45.0); PO2 ABG 68.9 mmHg (80.0-100.0); PO2 FiO2 Ratio Arterial Blood 0.98 %
[2025-10-20 12:06] LABS: Arterial Blood Gas Tidal Volume 350 ml; Arterial Blood Gas Ventilator rate 18 /MIN; Modified Allen's Test Pass; Site Drawn LEFT RADIAL
[2025-10-20] MEDS: HEPARIN SOD/D5W 100 UNITS/ML 25,000 UNITS/250 ML BAG 9 UNITS IV CONT (12:21)
--- NOTE | 2025-10-20 12:34 | P.PNINT_ITS ---
Assessment and Plan Assessment and Plan (1) Acute respiratory failure: Code(s): J96.00 - Acute respiratory failure, unspecified whether with hypoxia or hypercapnia Status: Acute Assessment and Plan: Acute hypoxic respiratory failure likely related to pneumonia/pneumonitis, pulmonary embolism -recently treated for pneumonia as outpatient. -10/17: chest x-ray this morning showed mild worsening of diffuse severe pneumonitis -continue meropenem and vancomycin (10/16) given patient is immunosuppressed -discussed with patient, son and daughter at bedside, explained to them regarding increased oxygen requirements, impending respiratory failure, lactic acidosis, elevated LFTs could be related to hypoperfusion. Patient and children are agreeable for intubation 10/18: Patient successfully intubated, currently on CMV mode of ventilation, ABGs reviewed post intubation, ventilator adjusted currently on peep of 10 and 60% FiO2 -continue bronchodilators and Pulmicort 10/18: Discussed with Dr. Yasir Gonzalez oncologist at [facility] who was her oncologist and treating of further breast cancer with Verzenio and anastrozole. He stated that Verzenio can cause pneumonitis in the have been case reports. Starting steroids 10/19: Thick secretions, added Mucomyst with DuoNeb. Patient also has bouts of coughing, added guaifenesin per tube. Continue steroids for pneumonitis/ARDS 10/20: Patient on propofol infusion, opens her eyes, is coughing, tachypneic, dyssynchronous. I have asked the bedside RN to start fentanyl and Versed infusion and maintain RASS of -2. Repeat gases improving. CRP improving 10/16: Chest CTA MPRESSION: 1. Pulmonary emboli in subsegmental pulmonary arteries in the bilateral basilar lower lobes with relatively low clot burden and without evident right heart strain. Dr. French discussed these findings with Dr. Guadalupe at 4:40 PM. 2. Diffuse bilateral lung disease suspicious for atypical pneumonia with appearance similar to COVID pneumonia as manifest during the early stages of the pandemic. 3. Small amount of pneumomediastinum of indeterminate origin (2) Pneumonia: Code(s): J18.9 - Pneumonia, unspecified organism Status: Acute Assessment and Plan: As above (3) Pulmonary embolism: Code(s): I26.99 - Other pulmonary embolism without acute cor pulmonale Status: Acute Assessment and Plan: Continue heparin infusion, CTA PE protocol showed subsegmental pulmonary embolism in the bibasal lower lobes with low clot burden and without evidence of right heart strain. (4) Breast cancer: Code(s): C50.919 - Malignant neoplasm of unspecified site of unspecified female breast Status: Acute Assessment and Plan: Patient with breast cancer takes Verzenio, anastrozole, currently on hold, oncologist also agreed with holding these medications (5) Hx of supraventricular tachycardia: Code(s): Z86.79 - Personal history of other diseases of the circulatory system Status: Acute Assessment and Plan: Patient on Coreg, currently on hold. Heart rates are stable, regular rate and rhythm -continue to monitor (6) Hyperlipidemia: Code(s): E78.5 - Hyperlipidemia, unspecified Status: Acute Assessment and Plan: Continue pravastatin (7) Hypertension: Code(s): I10 - Essential (primary) hypertension Status: Acute Assessment and Plan: 10/19: Patient was hypotensive overnight, likely related to sedation, requiring Levophed for a brief amount of time. Currently off Levophed (8) Pneumomediastinum: Code(s): J98.2 - Interstitial emphysema Status: Acute Assessment and Plan: Likely related to coughing -will continue Robitussin per tube -will continue to monitor VS chest x-ray Plan DVT prophylaxis: Heparin infusion Stress ulcer prophylaxis: Protonix (patient does take omeprazole at home) Nutrition: Tolerating tube feeds 10/18: PICC line inserted Code Status: Full code Critical Care Time Spent: 33 minutes Discuss with daughter Sirisha, son Yasir, and the patient and updated them with patient's condition and plan of care. Due to a high probability of clinically significant, life threatening deterioration, the patient required my highest level of preparedness to intervene emergently and I personally spent this critical care time directly and personally managing the patient. This critical care time included obtaining a history; examining the patient; pulse oximetry; ordering and review of studies; arranging urgent treatment with development of a management plan; evaluation of patient's response to treatment; frequent reassessment; and discussions with other providers. It was exclusive of separately billable procedures and treating other patients and teaching time. Please see Assessment and Plan section and the rest of the note for further information on patient assessment and treatment This dictation may have been done utilizing a voice recognition system. Attempts have been made to correct errors. However, there may be uncorrected grammatical, spelling, and recognitions errors present. Subjective Date/time seen: 10/20/25 12:34 Interval history: Reason for consult: Acute respiratory failure, pneumonia/pneumonitis, pulmonary embolism, presented to the ED on 10/16/2025 with complaints of cough, shortness of breath 10/18: Intubated 10/20/2025: Patient seen and examined the ICU, remains intubated, peep of 10, 70% FiO2. Sedated with propofol infusion, opens her eyes, dyssynchronous with the ventilator. I asked the bedside RN to start her back on fentanyl and Versed infusion. Urine output has been adequate, patient is afebrile, hemodynamically stable. Lactic acid is normal, LFTs trending down. Tolerating tube feeds Review of Systems Review of Systems: ROS unobtainable: Yes unobtainable due to endotracheal tube and unobtainable due to medical condition Exam Narrative: General: Intubated on sedation, in respiratory distress, coughing HEENT:? Pupils equal and reactive, sclera is clear Neck:? Supple Respiratory:? Coarse breath sounds diffusely, no wheezing, decreased at bases Cardiac:? S1-S2 is normal, regular rate and rhythm Abdomen:? Soft, nontender, nondistended, hypoactive bowel sounds Extremities:? Pitting edema bilateral lower extremities Neuro:? Intubated, sedated opens her eyes, agitated, does not follow simple commands Skin:? No skin lesions noted Psych:? Unable to assess at this time Objective Data Vital Signs Vital Signs: Vital Signs - 24 hr 10/19/25 12:36 10/19/25 13:00 10/19/25 13:37 Temperature 98.9 F Pulse Rate 97 100 96 Respiratory Rate 18 18 18 Blood Pressure 95/54 L Pulse Oximetry 94 Oxygen Delivery Fraction of Inspired Oxygen 10/19/25 14:00 10/19/25 14:00 10/19/25 14:02 Temperature 99.0 F Pulse Rate 99 100 100 Respiratory Rate 18 18 Blood Pressure 92/53 L Pulse Oximetry 93 Oxygen Delivery Fraction of Inspired Oxygen 10/19/25 14:02 10/19/25 14:03 10/19/25 14:03 Temperature Pulse Rate 100 100 100 Respiratory Rate 18 18 Blood Pressure 92/53 L Pulse Oximetry Oxygen Delivery Fraction of Inspired Oxygen 10/19/25 14:23 10/19/25 14:25 10/19/25 14:25 Temperature Pulse Rate 99 101 H 101 H Respiratory Rate 18 18 18 Blood Pressure Pulse Oximetry Oxygen Delivery Fraction of Inspired Oxygen 10/19/25 14:37 10/19/25 14:41 10/19/25 14:47 Temperature Pulse Rate 96 102 H 105 H Respiratory Rate 18 19 Blood Pressure Pulse Oximetry 93 Oxygen Delivery Mechanical Ventilation Fraction of Inspired Oxygen 60 10/19/25 15:00 10/19/25 15:18 10/19/25 15:18 Temperature 98.9 F Pulse Rate 110 H 107 H 107 H Respiratory Rate 21 H 18 18 Blood Pressure 98/56 L Pulse Oximetry 95 Oxygen Delivery Fraction of Inspired Oxygen 10/19/25 15:48 10/19/25 15:50 10/19/25 16:00 Temperature 98.9 F Pulse Rate 107 H 107 H 108 H Respiratory Rate 18 18 18 Blood Pressure 99/56 L Pulse Oximetry 92 Oxygen Delivery Fraction of Inspired Oxygen 10/19/25 16:00 10/19/25 16:00 10/19/25 16:00 Temperature Pulse Rate 106 H Respiratory Rate 18 Blood Pressure Pulse Oximetry Oxygen Delivery Mechanical Ventilation Fraction of Inspired Oxygen 60 60 10/19/25 16:00 10/19/25 16:00 10/19/25 16:00 Temperature Pulse Rate 106 H 106 H 107 H Respiratory Rate 18 Blood Pressure 99/56 L Pulse Oximetry Oxygen Delivery Fraction of Inspired Oxygen 10/19/25 16:10 10/19/25 17:00 10/19/25 17:21 Temperature 98.7 F Pulse Rate 106 H 102 H 103 H Respiratory Rate 18 18 18 Blood Pressure 99/55 L Pulse Oximetry 92 Oxygen Delivery Fraction of Inspired Oxygen 10/19/25 17:36 10/19/25 17:49 10/19/25 18:00 Temperature 98.6 F Pulse Rate 100 98 99 Respiratory Rate 18 Blood Pressure 94/51 L Pulse Oximetry 93 94 Oxygen Delivery Mechanical Ventilation Fraction of Inspired Oxygen 60 10/19/25 18:00 10/19/25 18:00 10/19/25 18:00 Temperature Pulse Rate 98 96 96 Respiratory Rate 18 18 18 Blood Pressure Pulse Oximetry Oxygen Delivery Fraction of Inspired Oxygen 10/19/25 18:00 10/19/25 19:00 10/19/25 20:00 Temperature 98.5 F Pulse Rate 96 94 91 Respiratory Rate 19 20 Blood Pressure 94/51 L 91/57 L Pulse Oximetry 94 Oxygen Delivery Fraction of Inspired Oxygen 10/19/25 20:00 10/19/25 20:00 10/19/25 20:00 Temperature Pulse Rate 91 91 Respiratory Rate 20 20 Blood Pressure Pulse Oximetry Oxygen Delivery Fraction of Inspired Oxygen 60 10/19/25 20:00 10/19/25 20:00 10/19/25 20:00 Temperature 98.3 F Pulse Rate 91 94 Respiratory Rate 20 Blood Pressure 99/58 L Pulse Oximetry 96 94 Oxygen Delivery Mechanical Ventilation Fraction of Inspired Oxygen 60 10/19/25 20:01 10/19/25 20:01 10/19/25 21:00 Temperature 98.1 F Pulse Rate 93 93 101 H Respiratory Rate 19 19 Blood Pressure 94/58 L Pulse Oximetry 94 91 Oxygen Delivery Mechanical Ventilation Fraction of Inspired Oxygen 60 10/19/25 21:44 10/19/25 21:45 10/19/25 21:47 Temperature Pulse Rate 91 91 91 Respiratory Rate 20 20 20 Blood Pressure Pulse Oximetry Oxygen Delivery Fraction of Inspired Oxygen 10/19/25 22:00 10/19/25 22:00 10/19/25 22:04 Temperature 98.4 F Pulse Rate 92 92 92 Respiratory Rate 23 H 23 H Blood Pressure 102/60 Pulse Oximetry 91 Oxygen Delivery Fraction of Inspired Oxygen 10/19/25 22:04 10/19/25 22:05 10/19/25 22:58 Temperature Pulse Rate 92 92 88 Respiratory Rate 23 H 23 H Blood Pressure Pulse Oximetry 91 Oxygen Delivery Mechanical Ventilation Fraction of Inspired Oxygen 60 10/19/25 23:00 10/20/25 00:00 10/20/25 00:00 Temperature 98.4 F 98.5 F Pulse Rate 88 90 90 Respiratory Rate 19 20 20 Blood Pressure 101/59 L 103/61 Pulse Oximetry 91 92 Oxygen Delivery Fraction of Inspired Oxygen 10/20/25 00:00 10/20/25 00:00 10/20/25 00:00 Temperature Pulse Rate 90 90 Respiratory Rate 20 20 Blood Pressure Pulse Oximetry Oxygen Delivery Fraction of Inspired Oxygen 60 10/20/25 00:00 10/20/25 00:30 10/20/25 00:30 Temperature Pulse Rate 91 91 91 Respiratory Rate 20 20 Blood Pressure Pulse Oximetry Oxygen Delivery Fraction of Inspired Oxygen 10/20/25 00:30 10/20/25 00:30 10/20/25 01:00 Temperature 98.3 F Pulse Rate 91 91 Respiratory Rate 20 24 H Blood Pressure 103/63 Pulse Oximetry 92 94 Oxygen Delivery Mechanical Ventilation Fraction of Inspired Oxygen 60 10/20/25 02:00 10/20/25 02:00 10/20/25 02:00 Temperature Pulse Rate 88 88 88 Respiratory Rate 22 H 22 H 22 H Blood Pressure Pulse Oximetry Oxygen Delivery Fraction of Inspired Oxygen 10/20/25 02:00 10/20/25 02:00 10/20/25 02:30 Temperature 98.2 F Pulse Rate 88 88 90 Respiratory Rate 22 H 20 Blood Pressure 100/62 Pulse Oximetry 91 Oxygen Delivery Fraction of Inspired Oxygen 10/20/25 03:00 10/20/25 03:10 10/20/25 03:12 Temperature 98.4 F Pulse Rate 97 90 90 Respiratory Rate 21 H 21 H Blood Pressure 101/60 Pulse Oximetry 94 93 Oxygen Delivery Mechanical Ventilation Fraction of Inspired Oxygen 60 10/20/25 03:12 10/20/25 04:00 10/20/25 04:00 Temperature Pulse Rate 90 94 94 Respiratory Rate 18 20 20 Blood Pressure Pulse Oximetry Oxygen Delivery Fraction of Inspired Oxygen 10/20/25 04:00 10/20/25 04:00 10/20/25 04:00 Temperature 98.1 F Pulse Rate 94 94 Respiratory Rate 20 20 Blood Pressure 106/59 L Pulse Oximetry 93 92 Oxygen Delivery Mechanical Ventilation Fraction of Inspired Oxygen 60 10/20/25 04:00 10/20/25 04:45 10/20/25 04:45 Temperature Pulse Rate 90 93 93 Respiratory Rate 20 20 Blood Pressure Pulse Oximetry Oxygen Delivery Fraction of Inspired Oxygen 10/20/25 04:45 10/20/25 05:00 10/20/25 05:31 Temperature 98.1 F Pulse Rate 93 88 88 Respiratory Rate 20 20 19 Blood Pressure 97/59 L Pulse Oximetry 91 Oxygen Delivery Fraction of Inspired Oxygen 10/20/25 05:31 10/20/25 05:40 10/20/25 05:40 Temperature Pulse Rate 88 89 95 Respiratory Rate 19 20 Blood Pressure Pulse Oximetry 90 Oxygen Delivery Mechanical Ventilation Fraction of Inspired Oxygen 60 10/20/25 05:49 10/20/25 05:57 10/20/25 06:00 Temperature Pulse Rate 90 92 Respiratory Rate 19 Blood Pressure Pulse Oximetry Oxygen Delivery Fraction of Inspired Oxygen 70 10/20/25 06:00 10/20/25 06:30 10/20/25 07:00 Temperature 98.2 F 98.5 F Pulse Rate 92 88 88 Respiratory Rate 20 19 20 Blood Pressure 99/61 L 97/60 L Pulse Oximetry 97 96 Oxygen Delivery Fraction of Inspired Oxygen 10/20/25 07:00 10/20/25 07:52 10/20/25 08:03 Temperature Pulse Rate 89 101 H 94 Respiratory Rate 22 H 29 H Blood Pressure Pulse Oximetry 100 Oxygen Delivery Mechanical Ventilation Fraction of Inspired Oxygen 70 10/20/25 08:05 10/20/25 08:30 10/20/25 08:30 Temperature Pulse Rate 100 105 H 105 H Respiratory Rate 26 H 30 H 30 H Blood Pressure Pulse Oximetry Oxygen Delivery Fraction of Inspired Oxygen 10/20/25 08:53 10/20/25 09:32 10/20/25 09:33 Temperature Pulse Rate 105 H 102 H 102 H Respiratory Rate 30 H 30 H 30 H Blood Pressure Pulse Oximetry Oxygen Delivery Fraction of Inspired Oxygen 10/20/25 10:29 10/20/25 10:29 10/20/25 11:10 Temperature Pulse Rate 106 H 106 H 93 Respiratory Rate 22 H 22 H Blood Pressure Pulse Oximetry 94 Oxygen Delivery Mechanical Ventilation Fraction of Inspired Oxygen 70 10/20/25 12:00 10/20/25 12:00 10/20/25 12:00 Temperature Pulse Rate 95 95 95 Respiratory Rate 22 H 22 H 22 H Blood Pressure Pulse Oximetry Oxygen Delivery Fraction of Inspired Oxygen Intake/Output Intake/Output: Intake & Output 10/17/25 10/18/25 10/19/25 10/20/25 23:59 23:59 23:59 23:59 Intake Total 4476.3 1527.3 1706.0 1137.1 Output Total 2680 1050 860 350 Balance 1796.3 477.3 846.0 787.1 Meds/Results Medications: Active Medications Generic Name Dose Route Start Last Admin Trade Name Freq PRN Reason Stop Dose Admin Acetaminophen 650 mg 10/16/25 19:07 Acetaminophen 325 Mg Tablet PO Q4H PRN Mild Pain (1-3) or Fever Hydrocodone Bitart/Acetaminophen 1 tab 10/16/25 19:07 Hydrocodone/Acetaminophen (*Crx) 5-325 Mg Tablet PO Q4H PRN Moderate Pain (4-6) Acetylcysteine 200 mg 10/19/25 14:00 10/20/25 07:51 Acetylcysteine 20% Inhal Soln 800 Mg/4 Ml Vial INHALATION 10/21/25 13:59 200 mg Q6HRT [facility] Administration Albuterol/Ipratropium 3 ml 10/17/25 14:00 10/20/25 07:51 Ipratropium 0.5 Mg/Albuterol Sulfate 2.5 Mg (Base) Ampul.Neb 3 Ml INHALATION 3 ml Q6HRT [facility] Administration Amitriptyline HCl 50 mg 10/16/25 22:35 10/17/25 21:37 Amitriptyline Hcl 25 Mg Tablet PO Not Given On Hold: 10/18/25 10:18 QHS [facility] Anastrozole 1 mg 10/17/25 09:00 10/18/25 10:26 Anastrozole (*Chemo) 1 Mg Tablet PO Not Given On Hold: 10/18/25 10:18 DAILY [facility] Apixaban 10 mg 10/17/25 09:00 Apixaban 5 Mg Tablet PO On Hold: 10/17/25 09:00 Q12HR [facility] Comment: HEPARIN DRIP STARTED Budesonide 0.5 mg 10/17/25 09:50 10/20/25 07:51 Budesonide Respule Neb 0.5 Mg/2 Ml Amp INHALATION 0.5 mg Q12HRT [facility] Administration Carvedilol 40 mg 10/17/25 08:00 10/17/25 10:07 Carvedilol Cr 10 Mg Capsule PO Not Given On Hold: 10/17/25 09:00 DAILY@0800 [facility] Dextrose 12.5 gm 10/19/25 07:37 Dextrose 50% 25 Gm/50 Ml Syringe IV PUSH PRN PRN Hypoglycemia Protocol Docusate Sodium 100 mg 10/17/25 09:00 Docusate Sodium 100 Mg Capsule PO On Hold: 10/17/25 09:00 Q12HR [facility] Duloxetine HCl 60 mg 10/17/25 09:00 Duloxetine Hcl 60 Mg Capsule.Dr BY MOUTH On Hold: 10/17/25 09:00 DAILY [facility] Gabapentin 600 mg 10/16/25 19:35 10/16/25 20:13 Gabapentin 300 Mg Capsule PO 600 mg On Hold: 10/17/25 09:00 QPM [facility] Administration Gabapentin 300 mg 10/17/25 09:00 Gabapentin 300 Mg Capsule PO On Hold: 10/17/25 09:00 QAM [facility] Glucagon 1 mg 10/19/25 07:37 Glucagon For Inj 1 Mg Vial IM PRN PRN Hypoglycemia Protocol Glucose 15 gm 10/19/25 07:37 Glucose Oral Gel 15 Gm Of Glucse In 37.5 Gm Tube PO PRN PRN Hypoglycemia Protocol Guaifenesin 1,200 mg 10/16/25 21:00 10/18/25 11:47 Guaifenesin 12 Hr 600 Mg Tabcr PO Not Given On Hold: 10/18/25 19:28 Q12HR [facility] Resume: 10/25/25 09:00 Guaifenesin/Dextromethorphan 10 ml 10/19/25 10:00 10/20/25 09:14 Guaifenesin/Dextromethorphan 10 Ml Udc PO 10/22/25 09:59 10 ml Q6H [facility] Administration Heparin Sodium (Porcine) 4,000 units 10/17/25 01:19 10/17/25 14:25 Heparin Sodium 5,000 Units/Ml Vial IV PUSH 4,000 units PRN PRN Administration aPTT less than 55 seconds Heparin Sodium (Porcine) 2,500 units 10/17/25 01:19 10/19/25 12:34 Heparin Sodium 5,000 Units/Ml Vial IV PUSH 2,500 units PRN PRN Administration aPTT 55 - 70 seconds Heparin Sodium/Dextrose 25,000 units in 250 mls @ 9 mls/hr 10/17/25 01:19 10/20/25 12:21 Heparin Sodium/D5w 100 Units/Ml IV CONT 900 units/hr .Q24H [facility] 9 mls/hr Protocol Administration 900 UNITS/HR Meropenem 1 gm/ Sodium 100 mls @ 200 mls/hr 10/17/25 18:00 10/20/25 05:25 Chloride IVPB 200 mls/hr Q12H [facility] Administration Doxycycline Hyclate 100 mg/ 100 mls @ 100 mls/hr 10/17/25 21:00 10/20/25 10:31 Sodium Chloride IVPB Infused Q12H [facility] Infusion Fentanyl Citrate 2,500 mcg in 250 mls @ 7.5 mls/hr 10/18/25 09:20 10/20/25 12:00 Fentanyl 2,500 Mcg/Ns 250 Ml IV CONT 75 mcg/hr .[id number] [facility] 7.5 mls/hr Protocol Titration 75 MCG/HR Midazolam HCl 100 mg in 100 mls @ 3 mls/hr 10/18/25 09:20 10/20/25 12:00 Versed 100 Mg/Ns 100 Ml IV CONT 3 mg/hr .[id number] [facility] 3 mls/hr Protocol Titration 3 MG/HR Norepinephrine Bitartrate 8 mg in 250 mls @ 0 mls/hr 10/18/25 19:40 10/19/25 18:00 Levophed 8 Mg/D5w 250 Ml IV CONT 0 mcg/min .Q0M [facility] 0 mls/hr Protocol Titration Vancomycin HCl 1,250 mg in 250 mls @ 166.667 mls/hr 10/19/25 04:00 10/20/25 03:13 Vancomycin 1,250 Mg/Ns 250 Ml IVPB 166 mls/hr Q12H [facility] Administration Dextrose 1,000 mls @ 100 mls/hr 10/19/25 07:37 Dextrose 5% 1,000 Ml IVPB PRN PRN Hypoglycemia Protocol Propofol 100 mls @ 22.65 mls/hr 10/19/25 10:25 10/20/25 12:00 Diprivan IV CONT 50 mcg/kg/min .Q4H25M [facility] 22.65 mls/hr Protocol Titration 50 MCG/KG/MIN Insulin Aspart 3 - 6 units 10/19/25 12:00 10/20/25 12:20 Insulin Aspart (*Bkc) 100 Units/Ml SUB-Q Not Given Q6HR [facility] Protocol Levothyroxine Sodium 50 mcg 10/17/25 06:30 10/20/25 05:30 Levothyroxine Sodium 50 Mcg Tablet PO 50 mcg DAILY@0630 [facility] Administration Methocarbamol 500 mg 10/16/25 18:45 Methocarbamol 500 Mg Tablet PO On Hold: 10/17/25 09:00 QID PRN Spasms Methylprednisolone Sodium Succinate 60 mg 10/19/25 08:00 10/20/25 09:13 Methylprednisolone Sod Succ 125 Mg Vial IV PUSH 60 mg Q6H [facility] Administration Multi-Ingred Cream/Lotion/Oil/Oint 1 applic 10/18/25 21:00 10/20/25 09:14 Mineral Oil/White Petrolatum Ointment EACH EYE 1 applic Q12HR [facility] Administration Home Med (Vibegron [ 75 mg 10/17/25 09:00 10/18/25 10:28 Gemtesa] 75 Mg PO 11/16/25 08:59 Not Given Tablet) DAILY [facility] On Hold: 10/18/25 10:20 Ondansetron HCl 4 mg 10/17/25 07:51 10/18/25 06:55 Ondansetron Inj 4 Mg/2 Ml Vial IV PUSH 4 mg Q6H PRN Administration Nausea And Vomiting Pantoprazole Sodium 40 mg 10/18/25 09:00 10/20/25 09:13 Pantoprazole Sodium Iv 40 Mg Vial IV PUSH 40 mg QAM [facility] Administration Pravastatin Sodium 40 mg 10/16/25 19:05 10/20/25 09:13 Pravastatin Sodium 20 Mg Tablet BY MOUTH 40 mg DAILY [facility] Administration Prochlorperazine Maleate 10 mg 10/16/25 22:25 10/16/25 23:12 Prochlorperazine Maleate 5 Mg Tablet PO 10 mg On Hold: 10/17/25 09:00 Q8H PRN Administration Nausea And Vomiting Sodium Chloride 10 ml 10/18/25 14:00 10/20/25 05:27 Central Line Flush IV PUSH 10 ml Q8HR [facility] Administration Sodium Chloride 10 ml 10/18/25 10:10 Central Line Flush IV PUSH PRN PRN with TPN bag changes Sodium Chloride 20 ml 10/18/25 10:10 10/20/25 05:27 Central Line Flush IV PUSH 20 ml PRN PRN Administration after blood draws Radiology Results: ITS Impressions Chest CTA 10/16/25 16:25 IMPRESSION: 1. Pulmonary emboli in subsegmental pulmonary arteries in the bilateral basilar lower lobes with relatively low clot burden and without evident right heart strain. Dr. French discussed these findings with Dr. Guadalupe at 4:40 PM. 2. Diffuse bilateral lung disease suspicious for atypical pneumonia with appearance similar to COVID pneumonia as manifest during the early stages of the pandemic. 3. Small amount of pneumomediastinum of indeterminate origin. Labs Labs: Laboratory Results - last 24 hr 10/19/25 10/19/25 10/19/25 17:33 17:33 18:43 WBC RBC Hgb Hct MCV MCH MCHC RDW Plt Count MPV Immature Gran % (Auto) Neut % (Auto) Lymph % (Auto) Valley % (Auto) Eos % (Auto) Baso % (Auto) Lymph # (Auto) [place] # (Auto) Eos # (Auto) Baso # (Auto) Abs Immat Gran (auto) Absolute Neuts (auto) Absolute Nucleated RBC Nucleated RBC % % Immature Plt Fraction PT INR APTT 79.8 H Puncture Site ABG pH ABG pCO2 ABG pO2 ABG PO2/FiO2 Ratio ABG HCO3 ABG O2 Saturation ABG O2 Content ABG Base Excess A-a Gradient Oxyhemoglobin Carboxyhemoglobin Methemoglobin Reduced Hemoglobin Total Hemoglobin O2 Delivery Device O2 Liters/Min Minute Volume Vent Rate Vent Mode FiO2 Tidal Volume PEEP Peak Inspir Pressure Pressure Support Sodium Potassium Chloride Carbon Dioxide Anion Gap BUN Creatinine Estim Creat Clear Calc Estimated GFR Glucose POC Capillary Glucose 189 H 189 H Lactic Acid Calcium Phosphorus Magnesium Total Bilirubin Direct Bilirubin AST ALT Alkaline Phosphatase C-Reactive Protein Total Protein Albumin 10/20/25 10/20/25 10/20/25 00:47 00:55 04:26 WBC RBC Hgb Hct MCV MCH MCHC RDW Plt Count MPV Immature Gran % (Auto) Neut % (Auto) Lymph % (Auto) Valley % (Auto) Eos % (Auto) Baso % (Auto) Lymph # (Auto) [place] # (Auto) Eos # (Auto) Baso # (Auto) Abs Immat Gran (auto) Absolute Neuts (auto) Absolute Nucleated RBC Nucleated RBC % % Immature Plt Fraction PT INR APTT 78.3 H Puncture Site Right radial ABG pH 7.389 ABG pCO2 41.3 ABG pO2 51.4 L ABG PO2/FiO2 Ratio 0.86 ABG HCO3 24.4 ABG O2 Saturation ABG O2 Content 13.4 L ABG Base Excess -0.6 A-a Gradient 331.0 Oxyhemoglobin Carboxyhemoglobin 1.4 Methemoglobin 0.0 Reduced Hemoglobin 14.4 H Total Hemoglobin 11.3 L O2 Delivery Device Ventilator O2 Liters/Min Not Reportable Minute Volume Vent Rate Vent Mode FiO2 60 Tidal Volume PEEP Peak Inspir Pressure Pressure Support Sodium Potassium Chloride Carbon Dioxide Anion Gap BUN Creatinine Estim Creat Clear Calc Estimated GFR Glucose POC Capillary Glucose 170 H Lactic Acid Calcium Phosphorus Magnesium Total Bilirubin Direct Bilirubin AST ALT Alkaline Phosphatase C-Reactive Protein Total Protein Albumin 10/20/25 10/20/25 10/20/25 04:38 04:38 04:38 WBC 4.8 RBC 2.17 L Hgb 8.9 L Hct 25.5 L MCV 117.5 H MCH 41.0 H MCHC 34.9 RDW 15.6 H Plt Count 107 L MPV 9.9 Immature Gran % (Auto) 1.0 H Neut % (Auto) 92.4 H Lymph % (Auto) 3.1 L Valley % (Auto) 3.3 Eos % (Auto) 0.0 Baso % (Auto) 0.2 Lymph # (Auto) 0.15 L [place] # (Auto) 0.2 Eos # (Auto) 0.0 Baso # (Auto) 0.0 Abs Immat Gran (auto) 0.05 H Absolute Neuts (auto) 4.4 Absolute Nucleated RBC 0.000 Nucleated RBC % 0.0 % Immature Plt Fraction 2.8 PT Cancelled 15.2 H INR Cancelled 1.2 APTT 93.3 H Puncture Site ABG pH ABG pCO2 ABG pO2 ABG PO2/FiO2 Ratio ABG HCO3 ABG O2 Saturation ABG O2 Content ABG Base Excess A-a Gradient Oxyhemoglobin Carboxyhemoglobin Methemoglobin Reduced Hemoglobin Total Hemoglobin O2 Delivery Device O2 Liters/Min Minute Volume Vent Rate Vent Mode FiO2 Tidal Volume PEEP Peak Inspir Pressure Pressure Support Sodium 133 L Potassium 3.8 Chloride 105 Carbon Dioxide 29 Anion Gap -1 L BUN 14 Creatinine 0.51 L Estim Creat Clear Calc 95 Estimated GFR > 60 Glucose 175 H POC Capillary Glucose Lactic Acid 1.4 Calcium 8.0 L Phosphorus 2.3 L Magnesium 2.6 H Total Bilirubin 0.4 Direct Bilirubin 0.0 AST 37 H ALT 98 H Alkaline Phosphatase 196 H C-Reactive Protein 8.6 H Total Protein 5.5 L Albumin 2.7 L 10/20/25 10/20/25 11:57 12:13 WBC RBC Hgb Hct MCV MCH MCHC RDW Plt Count MPV Immature Gran % (Auto) Neut % (Auto) Lymph % (Auto) [place] % (Auto) Eos % (Auto) Baso % (Auto) Lymph # (Auto) [place] # (Auto) Eos # (Auto) Baso # (Auto) Abs Immat Gran (auto) Absolute Neuts (auto) Absolute Nucleated RBC Nucleated RBC % % Immature Plt Fraction PT INR APTT Puncture Site Left radial ABG pH 7.409 ABG pCO2 43.1 ABG pO2 68.9 L ABG PO2/FiO2 Ratio 0.98 ABG HCO3 26.6 H ABG O2 Saturation 93.9 L ABG O2 Content 12.6 L ABG Base Excess 1.8 A-a Gradient 383.9 Oxyhemoglobin 91.8 Carboxyhemoglobin Methemoglobin Reduced Hemoglobin Total Hemoglobin 9.7 L O2 Delivery Device Ventilator O2 Liters/Min Not Reportable Minute Volume Not Reportable Vent Rate 18 Vent Mode Cmv FiO2 70 Tidal Volume 350 PEEP 10 Peak Inspir Pressure Not Reportable Pressure Support Not Reportable Sodium Potassium Chloride Carbon Dioxide Anion Gap BUN Creatinine Estim Creat Clear Calc Estimated GFR Glucose POC Capillary Glucose 151 H Lactic Acid Calcium Phosphorus Magnesium Total Bilirubin Direct Bilirubin AST ALT Alkaline Phosphatase C-Reactive Protein Total Protein Albumin Quality VTE Prophylaxis VTE prophylaxis: pharmacologic ordered
[2025-10-20] MEDS: VANCOMYCIN 1,500 MG/NS 500 ML 1,500 MG/500 ML BAG 250 MG IVPB (18:23)
[2025-10-20] MEDS: FENTANYL 2,500MCG/NS250ML(*CRX 2,500 MCG/250 ML BAG 7.5 MCG IV CONT (22:17)
[2025-10-21] VITALS (71 sets, daily range): BP systolic 94–112; BP diastolic 56–73; PULSE 89–118; RESP 16–32; TEMP 36.9–37.3; O2SAT 20–100
[2025-10-21] MEDS: PROPOFOL IV EMULSION 100 ML 22.65 MG IV CONT ×6 (02:04→22:26)
[2025-10-21] MEDS: ACETYLCYSTEINE 20% INHAL SOLN 800 MG/4 ML VIAL 200 MG INHALATION ×2 (02:50→07:51)
[2025-10-21] MEDS: IPRATROPIUM 0.5 MG/ALBUTEROL SULFATE 2.5 MG (BASE) AMPUL.NEB 3 ML INHALATION ×4 (02:50→20:33)
[2025-10-21] MEDS: VANCOMYCIN 1,500 MG/NS 500 ML 1,500 MG/500 ML BAG 250 MG IVPB (05:14)
[2025-10-21] MEDS: CENTRAL LINE FLUSH 10 ML IV PUSH ×3 (05:14→20:36)
[2025-10-21] MEDS: LEVOTHYROXINE SODIUM 50 MCG TABLET PO (05:15)
[2025-10-21] MEDS: MEROPENEM 1 GM in SODIUM CHLORIDE 0.9% IV 100 ML 200 ML IVPB ×2 (05:24→17:36)
[2025-10-21 05:33] LABS: Alveolar/Arterial O2 Gradient 359.7 mmHg; Carboxyhemoglobin 1.6 % THb (0-2.0); Fractional Inspired Oxygen 65 %; HCO3 ABG 27.6 mEq/l (22.0-26.0); Methemoglobin ABG 0.3 %THb (0-1.5); Oxygen Content ABG 15.5 %vol (16.0-22.0); Oxygen Saturation ABG 89.1 % (95.0-100.0); PCO2 ABG 44.4 mmHg (35.0-45.0); PO2 ABG 55.5 mmHg (80.0-100.0); PO2 FiO2 Ratio Arterial Blood 0.85 %; Reduced Hemoglobin 11.7 %THb (0-5.0)
[2025-10-21 05:34] LABS: Arterial Blood Gas Tidal Volume 350 ml; Arterial Blood Gas Ventilator rate 18 /MIN; Site Drawn RIGHT BRACHIAL
[2025-10-21 05:54] LABS: Hematocrit 28.7 % (37.0-47.0); Hemoglobin 10.0 g/dL (12.0-15.0); Immature Granulocyte Percent A 1.6 % (0-0.5); Lymphocytes Absolute Auto 0.22 K/mm3 (0.9-3.2); Mean Corpuscular HGB Conc 34.8 g/dl (32-36); Mean Corpuscular Hemoglobin 40.8 pg (26-34); Mean Corpuscular Volume 117.1 fl (80-100); Nucleated Red Blood Cells Absolute Auto 0.020 K/mm3 (0.0-0.012); Nucleated Red Blood Cells Perc 0.3 % (0.0-0.2); Platelet Count Result 121 k/mm3 (150-375); Red Blood Count 2.45 M/mm3 (4.2-5.4); White Blood Count 7.6 K/mm3 (4.5-10.0)
[2025-10-21] MEDS: MIDAZOLAM 100MG/NS 100ML(*CRX) 100 MG/100 ML BAG IV CONT (06:09)
[2025-10-21 06:11] LABS: Partial Thromboplastin Time 56.4 Seconds (22.3-36.8)
[2025-10-21 06:17] LABS: Alanine Aminotransferase 71 U/L (6-35); Albumin Level 2.7 g/dL (3.5-5.1); Alkaline Phosphatase 223 U/L (38-126); Anion Gap -2 mmol/L (4-12); Aspartate Amino Transferase 29 U/L (14-36); Bilirubin,Total 0.4 mg/dL (0.2-1.3); Blood Urea Nitrogen 18 mg/dL (7-17); Calcium 7.8 mg/dL (8.4-10.2); Carbon Dioxide 31 mmol/L (22-30); Chloride 104 mmol/L (98-107); Estimated CRCL calculation 95 ml/min; Estimated Glomerular Filt Rate > 60; Glucose 165 mg/dL (65-110); Magnesium 2.6 mg/dL (1.6-2.3); Potassium 3.8 mmol/L (3.4-5.0); Sodium 133 mmol/L (137-145); Total Protein 5.4 g/dL (6.3-8.2); Triglycerides 127 mg/dL (<150)
[2025-10-21 06:51] LABS: Macrocytosis 1+ (NORMAL); Schistocytes None Seen
[2025-10-21] MEDS: BUDESONIDE RESPULE NEB 0.5 MG/2 ML AMP INHALATION ×2 (07:51→20:33)
[2025-10-21] MEDS: ROCURONIUM BROMIDE 50 MG/5 ML VIAL IV PUSH (09:11)
[2025-10-21] MEDS: PRAVASTATIN SODIUM 20 MG TABLET 40 MG BY MOUTH (09:11)
[2025-10-21] MEDS: PANTOPRAZOLE SODIUM IV 40 MG VIAL IV PUSH (09:11)
[2025-10-21] MEDS: DOXYCYCLINE IV 100 MG in SODIUM CHLORIDE 0.9% IV 100 ML IVPB ×2 (09:11→20:36)
[2025-10-21] MEDS: MINERAL OIL/WHITE PETROLATUM OINTMENT 1 APPLIC EACH EYE ×2 (09:26→20:37)
--- NOTE | 2025-10-21 11:28 | PCFNICU ---
ICU Rounding Note: Pt current nutrition is Vital 1.2 @ goal rate 55 ml/h with flushes 30 ml q 4 hours. Nutrition recommendation: No new recommendations. Continue current nutrition care plan and orders. Agree with orders Last recorded weight is 75.5 kg. Bowel Motility: No BMs yet Labs Reviewed: Hgb 10.0, Hct 28.7, Alb 2.7, Na 133, BUN 18, Cre 0.51, Glu 165 Meds Noted: Fentanyl, versed, solumedrol, protonix, colace, propofol @ 22.65 ml/h to provide 598 kcals. Skin: No skin issues Additional Notes: Tube feeding on hold for bronchoscopy. Propofol is on for additional 598 kcal. Tube feeding Vital 1.2 @ goal rate 55 ml/h providing 1452 kcal, 91 g protein, 981 ml free water. Tube feeding is adequate for needs at this time. May need to titrate down if propofol remains high, pt to be proned today. Following daily in ICU rounds. Monitoring tube feeding rate, tolerance, weights, labs, output, plan of care Follow up Tuesday /Tuesday, daily rounds.
--- NOTE | 2025-10-21 12:06 | P.PCNBED_ITS ---
Procedures Diagnostic Fiberoptic Bronchoscopy Broncoscopy Date: 10/21/25 Broncoscopy Time: 12:06 Consent: obtained Indication: pneumonia Description of Procedure: After informed consent and time out, bronchoscope inserted through exiting ETT. Minimal petechia right bronchus intermedius. BAl medial segment RML with 120 ml in and 45 ml out. Clear fluid without evidence of alveolar hemorrhage. After BAL right lung inspected and all segments patent, no mucous. Left lung inspected and all segments patent, no mucous. Complications: CXR ordered EXAMINATION: XR chest 1V portable COMPARISON: No comparisons available. HISTORY: Post procedure BRONCHOSCOPY FINDINGS: There are bilateral infiltrates. No pneumothorax. Heart is normal size. Mediastinal and hilar contours are within normal limits. Bony thorax no acute abnormality. Miscellaneous:ETT 3 cm above the brown, nasogastric tube in the stomach, left PICC line in the SVC. Large amount of subcutaneous air obscures evaluation for pneumothorax or pneumomediastinum. Impression: Bilateral pneumonia. Large amount of subcutaneous air. Evaluation for pneumothorax or pneumomediastinum is limited. CT suggested to assess as clinically one Subcutaneous air confirmed on physical exam. Peak airway pressure is 22. Oxygenation stable. Discussed with special education teaching assistant. Plan for paralysis and CT scan of the chest without contrast. Discussed with son and daughter.
[2025-10-21 13:13] LABS: Partial Thromboplastin Time 27.1 Seconds (22.3-36.8)
[2025-10-21] MEDS: CISATRACURIUM BESYLATE 20 MG/10 ML VIAL 11.3 MG IV PUSH (13:15)
[2025-10-21] MEDS: CISATRACURIUM BESYLATE 200 MG in SODIUM CHLORIDE 0.9% IV 80 ML 6.8 ML IV CONT (13:19)
[2025-10-21 13:25] LABS: Appearance Bronchial Fluid Cloudy; Eosinophils Bronchial Fluid 0 %; Lymphocytes Bronchial Fluid 48 %; Macrophages Bronchial Fluid 3; Monocytes Bronchial Fluid 2 %; Neutrophils Bronchial Fluid 47 %; Other Cells Bronchial Fluid 0 %; Source Bronchial Fluid Bronchial Lavage
[2025-10-21 13:26] LABS: Color Bronchial Fluid Red
--- NOTE | 2025-10-21 13:56 | PM.CNGS ---
Assessment and Plan Assessment and plan (1) Pneumomediastinum: Code(s): J98.2 - Interstitial emphysema Status: Acute Assessment and Plan: Patient presented to the hospital on 10/16 after she was found to be hypoxic and hypotensive at office visit with PCP for ongoing cough, sore throat, dyspnea, and shortness of breath. She was seen a week prior at an urgent care and prescribed a Zpack and oral steroid, which did not provide much relief. Once admitted to the hospital, patient was still satting low and hypotensive. She was admitted to the ICU and eventually intubated due to worsening respiratory failure. Initial imaging showed only a small amount of pneumomediastinum. However, today's xray showed large amount of subcutaneous air. Upon exam, patient has palpable subcutaneous emphysema. Labs reveal normal WBC count. Family at bedside and nursing staff deny any hemoptysis, trauma to the chest, chest pain, or vomiting. Normal lactic acid level yesterday. A CT of the chest was ordered. We will follow for results and plan treatment according to results. (2) Acute respiratory failure: Code(s): J96.00 - Acute respiratory failure, unspecified whether with hypoxia or hypercapnia Status: Acute Assessment and Plan: See above. On mechanical ventilation. (3) Pneumonia: Code(s): J18.9 - Pneumonia, unspecified organism Status: Acute Assessment and Plan: Bronchial alveo lavage cultures still pending. Continue IV antibiotics. (4) Pulmonary embolism: Code(s): I26.99 - Other pulmonary embolism without acute cor pulmonale Status: Acute Assessment and Plan: Continue heparin drip. (5) Breast cancer: Code(s): C50.919 - Malignant neoplasm of unspecified site of unspecified female breast Status: Acute Assessment and Plan: Patient follows with [facility]. Chemo meds being held. (6) SVT (supraventricular tachycardia): Code(s): I47.1 - Supraventricular tachycardia Status: Acute (7) Hyperlipidemia: Code(s): E78.5 - Hyperlipidemia, unspecified Status: Acute (8) Hypertension: Code(s): I10 - Essential (primary) hypertension Status: Acute Plan Discussed patient's case and plan of care with Dr. Hussein. History of Present Illness Consult details Consult date: 10/21/25 Reason for consult: other (pneumomediastinum) Requesting physician: Derik Montaño MD Narrative: Patient is a 65-year-old female with history of breast cancer (Currently undergoing chemotherapy. Follows with oncology at [facility]), tongue cancer, grade 2 diastolic dysfunction, mitral valve prolapse, hyperlipidemia who we have been asked to see in surgical consultation for pneumomediastinum. Patient presented to urgent care on 10/11/2025 with 1 week history of sore throat, cough and sinus pressure. She was prescribed a Z-Slick and oral steroids. Unfortunately, this did not provide any relief and patient then presented to her primary care provider on 10/16/25. at this point, patient was having trouble breathing and shortness of breath. When patient arrived at this appointment she was noted to have a critically low oxygen saturation at 80 did 83%. She also had significant hypotension. She was strongly advised to immediately present to the emergency department for further evaluation management. Patient tachypneic on exam and unable to speak in full sentences. Required 6 L Via nasal cannula. A CT of the chest demonstrated pulmonary emboli with low clot burden and no right heart strain. Diffuse bilateral lung disease suspicious for atypical pneumonia with apparent similar to COVID pneumonia. Small amount of pneumomediastinum of indeterminate origin. Viral swabs all negative. Patient was started on meropenem and vancomycin. The patient was intubated on 10/18/2025 due to impending respiratory failure, lactic acidosis, elevated LFTs. Articulation Officer spoke with patient's oncologist at [place]. He stated that 1 of her chemotherapy medications could cause pneumonitis. Patient was started on steroids. Chemo medications being held. Today, a bronchoscopy was performed. This demonstrated bilateral infiltrates but no pneumothorax. Large amount of subcutaneous air. Chest x-ray today also demonstrated bilateral pneumonia And a large amount of subcutaneous air. Evaluation for pneumothorax or pneumomediastinum is limited, CT suggested. General surgery team was consulted. Upon my evaluation of the patient today she is still intubated and sedated. History gathered from bedside nurse and son at bedside. No trauma to the chest. No vomiting. No true chest pain. No hemoptysis. Nurse did not get any blood draw back from the NG tube. CT was ordered and patient was on her way to get the scan when I left the room. [facility] Past Medical History Medical History (Updated 10/17/25 @ 09:41 by Derik Montaño MD) Breast cancer COVID-19 Cervicalgia Chronic low back pain Back pain associated with peripheral numbness Screening for colon cancer Screening for breast cancer Postmenopausal SVT (supraventricular tachycardia) 2010 History of tongue cancer Anxiety and depression Attention deficit hyperactivity disorder (ADHD), combined type Grade II diastolic dysfunction Mitral valve prolapse Other and unspecified hyperlipidemia Primary insomnia Surgical History Surgical History History of laparoscopic cholecystectomy 05/09/20 H/O rectal sphincterotomy Endometriosis determined by laparoscopy History of tonsillectomy H/O section S/P bunionectomy History of carpal tunnel release Family History Family History (Updated 10/16/25 @ 20:09 by Bindu Bonilla RN) Mother Alzheimer disease Unknown Colon cancer Social History Social History Smoking status: Never smoker Second hand tobacco smoke exposure: No Alcohol intake: current Alcohol use details: a glass of wine every night with dinner Substance use: never Substance use type: does not use Lack of Transportation: No Lack of Food: Never True Current Housing: I Have Housing Concerned About Future Housing: No Difficulty Paying Gas/Electric Bills: No Difficulty Paying for Meds: No Currently Unemployed: No Education: Master's Degree or Higher Difficulty w/ Childcare or Family Care: No Living arrangements: with family Occupation/Education: occupation Gender identity (if verbalized by the patient): Female Sexual Orientation (if Verbalized by the Patient): Straight or Heterosexual Spiritual care concerns: No Agree to blood products: Yes Meds Home Medications and Allergies Home Medications ?Medication ?Instructions ?Recorded ?Confirmed ?Type anastrozole 1 mg tablet 1 mg PO DAILY #1 tablet 03/01/23 10/16/25 Rx prochlorperazine maleate 10 mg 10 mg PO Q8H PRN nausea and 03/01/23 10/16/25 Rx tablet vomiting #1 tablet gabapentin 300 mg capsule 300 mg PO BID 10/04/23 10/16/25 History vibegron 75 mg tablet (Gemtesa) 75 mg PO DAILY 10/04/23 10/16/25 History dicyclomine 20 mg tablet 20 mg PO QID PRN abdominal pain 04/10/24 10/16/25 History abemaciclib 150 mg tablet 150 mg PO BID 10/15/24 10/16/25 History (Verzenio) carvedilol phosphate 40 mg See Rx Instructions .Route 01/31/25 10/16/25 Rx capsule,[id number] multiphase .COMPLEX #90 caps ondansetron 4 mg disintegrating 4 mg PO Q8H PRN nausea and 04/02/25 10/16/25 Rx tablet vomiting #7 tabs biotin 10,000 mcg capsule 10,000 mcg PO DAILY 04/22/25 10/16/25 History calcium carbonate 600 mg PO BID 04/22/25 10/16/25 History multivitamin (Daily Multi-Vitamin 1 tablet PO DAILY 04/22/25 10/16/25 History tablet) vitamin B complex 1 tablet PO DAILY 04/22/25 10/16/25 History pravastatin 40 mg tablet See Rx Instructions .Route 08/27/25 10/16/25 Rx .COMPLEX #90 tabs omeprazole 20 mg capsule,delayed See Rx Instructions .Route 10/02/25 10/16/25 Rx release .COMPLEX #90 caps dextroamphetamine-amphetamine 15 15 mg PO BID #60 tabs 10/09/25 10/16/25 Rx mg tablet (Adderall) duloxetine 60 mg capsule,delayed See Rx Instructions .Route 10/09/25 10/16/25 Rx release .COMPLEX #90 caps amitriptyline 50 mg tablet 50 mg PO QHS 10/16/25 10/16/25 History levothyroxine 50 mcg tablet 50 mcg PO DAILY 10/16/25 10/16/25 History Allergies Allergy/AdvReac Type Severity Reaction Status Date / Time Penicillins Allergy Intermediate Hives Verified 10/16/25 20:08 adhesive tape AdvReac Mild RASH, Verified 10/16/25 20:08 ITCHING Vital Signs Vital Signs - 24 hr 10/20/25 14:00 10/20/25 14:00 10/20/25 14:00 Temperature 99.0 F Pulse Rate 97 94 94 Respiratory Rate 22 H 20 20 Blood Pressure 101/61 Pulse Oximetry 96 Oxygen Delivery Fraction of Inspired Oxygen 10/20/25 14:00 10/20/25 14:00 10/20/25 14:00 Temperature Pulse Rate 94 94 97 Respiratory Rate 20 24 H Blood Pressure Pulse Oximetry Oxygen Delivery Fraction of Inspired Oxygen 10/20/25 14:00 10/20/25 14:24 10/20/25 14:24 Temperature Pulse Rate 97 99 99 Respiratory Rate 24 H 20 20 Blood Pressure Pulse Oximetry Oxygen Delivery Fraction of Inspired Oxygen 10/20/25 14:52 10/20/25 15:00 10/20/25 15:00 Temperature 98.9 F Pulse Rate 93 93 96 Respiratory Rate 20 22 H 18 Blood Pressure 103/58 L Pulse Oximetry 96 Oxygen Delivery Fraction of Inspired Oxygen 10/20/25 15:01 10/20/25 16:00 10/20/25 16:00 Temperature 98.8 F Pulse Rate 96 107 H Respiratory Rate 16 Blood Pressure 111/64 Pulse Oximetry 97 96 Oxygen Delivery Mechanical Ventilation Fraction of Inspired Oxygen 70 70 10/20/25 16:00 10/20/25 16:00 10/20/25 16:00 Temperature Pulse Rate 100 107 H Respiratory Rate 18 Blood Pressure Pulse Oximetry 95 Oxygen Delivery Mechanical Ventilation Fraction of Inspired Oxygen 70 10/20/25 16:00 10/20/25 16:00 10/20/25 17:00 Temperature 98.8 F Pulse Rate 107 H 107 H 99 Respiratory Rate 18 18 18 Blood Pressure 107/61 Pulse Oximetry 95 Oxygen Delivery Fraction of Inspired Oxygen 10/20/25 17:09 10/20/25 17:51 10/20/25 17:51 Temperature Pulse Rate 94 103 H 103 H Respiratory Rate 20 20 Blood Pressure Pulse Oximetry 97 Oxygen Delivery Mechanical Ventilation Fraction of Inspired Oxygen 60 10/20/25 18:00 10/20/25 18:00 10/20/25 18:00 Temperature 98.9 F Pulse Rate 100 106 H 99 Respiratory Rate 18 18 Blood Pressure 103/62 Pulse Oximetry 92 Oxygen Delivery Fraction of Inspired Oxygen 10/20/25 18:00 10/20/25 18:00 10/20/25 19:00 Temperature 98.8 F Pulse Rate 99 99 103 H Respiratory Rate 18 18 20 Blood Pressure 100/76 Pulse Oximetry 93 Oxygen Delivery Fraction of Inspired Oxygen 10/20/25 19:55 10/20/25 20:00 10/20/25 20:00 Temperature 98.8 F Pulse Rate 103 H 99 Respiratory Rate 20 20 Blood Pressure 94/59 L Pulse Oximetry 93 92 Oxygen Delivery Mechanical Ventilation Fraction of Inspired Oxygen 60 60 10/20/25 20:00 10/20/25 20:00 10/20/25 20:00 Temperature Pulse Rate 98 98 98 Respiratory Rate 18 18 18 Blood Pressure Pulse Oximetry Oxygen Delivery Fraction of Inspired Oxygen 10/20/25 20:00 10/20/25 20:16 10/20/25 20:30 Temperature Pulse Rate 99 96 111 H Respiratory Rate 19 Blood Pressure Pulse Oximetry 90 Oxygen Delivery Mechanical Ventilation Fraction of Inspired Oxygen 60 10/20/25 21:00 10/20/25 22:00 10/20/25 22:00 Temperature 98.7 F 98.9 F Pulse Rate 104 H 96 102 H Respiratory Rate 20 17 Blood Pressure 116/76 103/69 Pulse Oximetry 94 92 Oxygen Delivery Fraction of Inspired Oxygen 10/20/25 22:00 10/20/25 22:00 10/20/25 22:00 Temperature Pulse Rate 99 99 99 Respiratory Rate 18 18 18 Blood Pressure Pulse Oximetry Oxygen Delivery Fraction of Inspired Oxygen 10/20/25 22:13 10/20/25 22:17 10/20/25 22:17 Temperature Pulse Rate 102 H 108 H 107 H Respiratory Rate 19 25 H 22 H Blood Pressure Pulse Oximetry Oxygen Delivery Fraction of Inspired Oxygen 10/20/25 22:27 10/20/25 22:30 10/20/25 22:30 Temperature Pulse Rate 112 H 116 H 116 H Respiratory Rate 26 H 26 H 26 H Blood Pressure Pulse Oximetry Oxygen Delivery Fraction of Inspired Oxygen 10/20/25 23:00 10/20/25 23:11 10/20/25 23:45 Temperature 99.0 F Pulse Rate 104 H 113 H 102 H Respiratory Rate 18 18 Blood Pressure 112/70 Pulse Oximetry 94 93 95 Oxygen Delivery Mechanical Ventilation Mechanical Ventilation Fraction of Inspired Oxygen 65 65 10/20/25 23:50 10/21/25 00:00 10/21/25 00:00 Temperature Pulse Rate 100 100 Respiratory Rate 18 18 Blood Pressure Pulse Oximetry Oxygen Delivery Fraction of Inspired Oxygen 65 10/21/25 00:00 10/21/25 00:00 10/21/25 00:00 Temperature 99 F Pulse Rate 100 102 H 101 H Respiratory Rate 18 20 Blood Pressure 108/63 Pulse Oximetry 94 Oxygen Delivery Fraction of Inspired Oxygen 10/21/25 01:00 10/21/25 02:00 10/21/25 02:00 Temperature 99.1 F Pulse Rate 98 102 H 102 H Respiratory Rate 23 H 18 Blood Pressure 100/61 Pulse Oximetry 94 Oxygen Delivery Fraction of Inspired Oxygen 10/21/25 02:00 10/21/25 02:04 10/21/25 02:04 Temperature 99.1 F Pulse Rate 102 H 107 H 107 H Respiratory Rate 18 19 19 Blood Pressure 103/64 Pulse Oximetry 20 L Oxygen Delivery Fraction of Inspired Oxygen 10/21/25 02:07 10/21/25 02:22 10/21/25 02:50 Temperature Pulse Rate 103 H 107 H 107 H Respiratory Rate 18 19 Blood Pressure Pulse Oximetry 92 Oxygen Delivery Mechanical Ventilation Fraction of Inspired Oxygen 65 10/21/25 02:58 10/21/25 03:00 10/21/25 04:00 Temperature 99.0 F 98.9 F Pulse Rate 109 H 108 H 106 H Respiratory Rate 19 19 18 Blood Pressure 101/61 99/61 L Pulse Oximetry 94 92 Oxygen Delivery Fraction of Inspired Oxygen 10/21/25 04:00 10/21/25 04:00 10/21/25 04:00 Temperature Pulse Rate 106 H 105 H Respiratory Rate 18 18 Blood Pressure Pulse Oximetry 92 Oxygen Delivery Mechanical Ventilation Fraction of Inspired Oxygen 65 65 10/21/25 04:00 10/21/25 04:00 10/21/25 04:00 Temperature Pulse Rate 105 H 105 H 109 H Respiratory Rate 18 18 Blood Pressure Pulse Oximetry Oxygen Delivery Fraction of Inspired Oxygen 10/21/25 05:00 10/21/25 05:00 10/21/25 05:05 Temperature 98.9 F Pulse Rate 108 H 108 H 113 H Respiratory Rate 18 18 Blood Pressure 111/69 Pulse Oximetry 94 93 Oxygen Delivery Mechanical Ventilation Fraction of Inspired Oxygen 65 10/21/25 05:30 10/21/25 06:00 10/21/25 06:00 Temperature 98.9 F Pulse Rate 115 H 108 H 107 H Respiratory Rate 32 H 18 Blood Pressure 109/63 Pulse Oximetry 94 Oxygen Delivery Fraction of Inspired Oxygen 10/21/25 06:00 10/21/25 06:00 10/21/25 06:00 Temperature Pulse Rate 107 H 108 H 108 H Respiratory Rate 18 18 18 Blood Pressure Pulse Oximetry Oxygen Delivery Fraction of Inspired Oxygen 10/21/25 06:09 10/21/25 06:10 10/21/25 06:10 Temperature Pulse Rate 106 H 107 H 108 H Respiratory Rate 18 21 H 21 H Blood Pressure Pulse Oximetry Oxygen Delivery Fraction of Inspired Oxygen 10/21/25 07:00 10/21/25 07:52 10/21/25 07:59 Temperature 99 F Pulse Rate 100 102 H 107 H Respiratory Rate 18 19 Blood Pressure 107/66 Pulse Oximetry 95 96 Oxygen Delivery Mechanical Ventilation Fraction of Inspired Oxygen 65 10/21/25 08:00 10/21/25 08:00 10/21/25 08:08 Temperature Pulse Rate 115 H 115 H 108 H Respiratory Rate 19 Blood Pressure Pulse Oximetry Oxygen Delivery Mechanical Ventilation Fraction of Inspired Oxygen 65 10/21/25 08:55 10/21/25 09:00 10/21/25 10:00 Temperature 99.2 F 99.2 F Pulse Rate 106 H 106 H 114 H Respiratory Rate 16 18 Blood Pressure 100/65 111/65 Pulse Oximetry 100 100 99 Oxygen Delivery Mechanical Ventilation Fraction of Inspired Oxygen 90 10/21/25 10:00 10/21/25 10:00 10/21/25 10:35 Temperature Pulse Rate 104 H 110 H Respiratory Rate 18 Blood Pressure Pulse Oximetry Oxygen Delivery Fraction of Inspired Oxygen 65 10/21/25 10:40 10/21/25 11:00 10/21/25 12:00 Temperature 99.0 F Pulse Rate 110 H 108 H 99 Respiratory Rate 18 19 Blood Pressure 109/64 Pulse Oximetry 98 100 Oxygen Delivery Mechanical Ventilation Fraction of Inspired Oxygen 100 10/21/25 12:00 10/21/25 12:00 10/21/25 13:19 Temperature 98.9 F Pulse Rate 95 99 Respiratory Rate 25 H 22 H Blood Pressure 102/65 103/59 L Pulse Oximetry 100 100 Oxygen Delivery Mechanical Ventilation Fraction of Inspired Oxygen 90 Exam Const: Other: Intubated and sedated Neck: Neck: supple Chest: Other: subcutaneous emphysema Resp: Other: on mechanical ventilation. Cardio: Rate: regular rate Rhythm: regular rhythm Skin: General skin exam: normal color and no rashes or lesions noted Extrem: General: normal to inspection Results Labs 10/21/25 05:09 10/21/25 05:09 Labs: Abnormal lab results 10/20/25 10/21/25 10/21/25 Range/Units 17:36 00:16 05:09 RBC 2.45 L (4.2-5.4) M/mm3 Hgb 10.0 L (12.0-15.0) g/dL Hct 28.7 L (37.0-47.0) % MCV 117.1 H (80-100) fl MCH 40.8 H (26-34) pg RDW 15.6 H (11.5-14.5) % Plt Count 121 L (150-375) k/mm3 Immature Gran % (Auto) 1.6 H (0-0.5) % Neut % (Auto) 90.6 H (45.5-73.1) % Lymph % (Auto) 2.9 L (18.3-44.2) % Lymph # (Auto) 0.22 L (0.9-3.2) K/mm3 Abs Immat Gran (auto) 0.12 H (0.00-0.031) K/mm3 Absolute Neuts (auto) 6.9 H (1.3-6.7) K/mm3 Absolute Nucleated RBC 0.020 H (0.0-0.012) K/mm3 Nucleated RBC % 0.3 H (0.0-0.2) % APTT 56.4 H (22.3-36.8) Seconds ABG pO2 (80.0-100.0) mmHg ABG HCO3 (22.0-26.0) mEq/l ABG O2 Saturation (95.0-100.0) % ABG O2 Content (16.0-22.0) %vol Oxyhemoglobin (90.0-100.0) % THb Reduced Hemoglobin (0-5.0) %THb Sodium 133 L (137-145) mmol/L Carbon Dioxide 31 H (22-30) mmol/L Anion Gap -2 L (4-12) mmol/L BUN 18 H (7-17) mg/dL Creatinine 0.51 L (0.7-1.0) mg/dL Glucose 165 H (65-110) mg/dL POC Capillary Glucose 156 H 157 H (65-105) mg/dl Calcium 7.8 L (8.4-10.2) mg/dL Phosphorus 2.1 L (2.5-4.5) mg/dL Magnesium 2.6 H (1.6-2.3) mg/dL ALT 71 H (6-35) U/L Alkaline Phosphatase 223 H (38-126) U/L Total Protein 5.4 L (6.3-8.2) g/dL Albumin 2.7 L (3.5-5.1) g/dL 10/21/25 10/21/25 Range/Units 05:16 12:05 RBC (4.2-5.4) M/mm3 Hgb (12.0-15.0) g/dL Hct (37.0-47.0) % MCV (80-100) fl MCH (26-34) pg RDW (11.5-14.5) % Plt Count (150-375) k/mm3 Immature Gran % (Auto) (0-0.5) % Neut % (Auto) (45.5-73.1) % Lymph % (Auto) (18.3-44.2) % Lymph # (Auto) (0.9-3.2) K/mm3 Abs Immat Gran (auto) (0.00-0.031) K/mm3 Absolute Neuts (auto) (1.3-6.7) K/mm3 Absolute Nucleated RBC (0.0-0.012) K/mm3 Nucleated RBC % (0.0-0.2) % APTT (22.3-36.8) Seconds ABG pO2 55.5 L (80.0-100.0) mmHg ABG HCO3 27.6 H (22.0-26.0) mEq/l ABG O2 Saturation 89.1 L (95.0-100.0) % ABG O2 Content 15.5 L (16.0-22.0) %vol Oxyhemoglobin 86.4 L* (90.0-100.0) % THb Reduced Hemoglobin 11.7 H (0-5.0) %THb Sodium (137-145) mmol/L Carbon Dioxide (22-30) mmol/L Anion Gap (4-12) mmol/L BUN (7-17) mg/dL Creatinine (0.7-1.0) mg/dL Glucose (65-110) mg/dL POC Capillary Glucose 135 H (65-105) mg/dl Calcium (8.4-10.2) mg/dL Phosphorus (2.5-4.5) mg/dL Magnesium (1.6-2.3) mg/dL ALT (6-35) U/L Alkaline Phosphatase (38-126) U/L Total Protein (6.3-8.2) g/dL Albumin (3.5-5.1) g/dL Diabetes panel 10/21/25 Range/Units 05:09 Sodium 133 L (137-145) mmol/L Potassium 3.8 (3.4-5.0) mmol/L Chloride 104 (98-107) mmol/L Carbon Dioxide 31 H (22-30) mmol/L BUN 18 H (7-17) mg/dL Creatinine 0.51 L (0.7-1.0) mg/dL Glucose 165 H (65-110) mg/dL Calcium 7.8 L (8.4-10.2) mg/dL AST 29 (14-36) U/L ALT 71 H (6-35) U/L Alkaline Phosphatase 223 H (38-126) U/L Total Protein 5.4 L (6.3-8.2) g/dL Albumin 2.7 L (3.5-5.1) g/dL Triglycerides 127 (<150) mg/dL Calcium panel 10/21/25 Range/Units 05:09 Calcium 7.8 L (8.4-10.2) mg/dL Phosphorus 2.1 L (2.5-4.5) mg/dL Albumin 2.7 L (3.5-5.1) g/dL Pituitary panel 10/21/25 Range/Units 05:09 Sodium 133 L (137-145) mmol/L Potassium 3.8 (3.4-5.0) mmol/L Chloride 104 (98-107) mmol/L Carbon Dioxide 31 H (22-30) mmol/L BUN 18 H (7-17) mg/dL Creatinine 0.51 L (0.7-1.0) mg/dL Glucose 165 H (65-110) mg/dL Calcium 7.8 L (8.4-10.2) mg/dL Adrenal panel 10/21/25 Range/Units 05:09 Sodium 133 L (137-145) mmol/L Potassium 3.8 (3.4-5.0) mmol/L Chloride 104 (98-107) mmol/L Carbon Dioxide 31 H (22-30) mmol/L BUN 18 H (7-17) mg/dL Creatinine 0.51 L (0.7-1.0) mg/dL Glucose 165 H (65-110) mg/dL Calcium 7.8 L (8.4-10.2) mg/dL Total Bilirubin 0.4 (0.2-1.3) mg/dL AST 29 (14-36) U/L ALT 71 H (6-35) U/L Alkaline Phosphatase 223 H (38-126) U/L Total Protein 5.4 L (6.3-8.2) g/dL Albumin 2.7 L (3.5-5.1) g/dL All other labs normal.
[2025-10-21 14:54] LABS: Arterial Blood Gas Tidal Volume 350 ml; Arterial Blood Gas Ventilator rate 18 /MIN
--- NOTE | 2025-10-21 15:06 | WPDINTPN2 ---
Assessment and Plan Assessment and Plan (1) Acute respiratory failure: Code(s): J96.00 - Acute respiratory failure, unspecified whether with hypoxia or hypercapnia Status: Acute Assessment and Plan: Acute hypoxic respiratory failure likely related to pneumonia/pneumonitis, pulmonary embolism -recently treated for pneumonia as outpatient. -10/17: chest x-ray this morning showed mild worsening of diffuse severe pneumonitis -continue meropenem and vancomycin (10/16) given patient is immunosuppressed -discussed with patient, son and daughter at bedside, explained to them regarding increased oxygen requirements, impending respiratory failure, lactic acidosis, elevated LFTs could be related to hypoperfusion. Patient and children are agreeable for intubation 10/18: Patient successfully intubated, currently on CMV mode of ventilation, ABGs reviewed post intubation, ventilator adjusted currently on peep of 10 and 60% FiO2 -continue bronchodilators and Pulmicort 10/18: Discussed with Dr. Yasir Gonzalez oncologist at [facility] who was her oncologist and treating of further breast cancer with Verzenio and anastrozole. He stated that Verzenio can cause pneumonitis in the have been case reports. Starting steroids 10/19: Thick secretions, added Mucomyst with DuoNeb. Patient also has bouts of coughing, added guaifenesin per tube. Continue steroids for pneumonitis/ARDS 10/20: Patient on propofol infusion, opens her eyes, is coughing, tachypneic, dyssynchronous. I have asked the bedside RN to start fentanyl and Versed infusion and maintain RASS of -2. Repeat gases improving. CRP improving 10/21: bronchoscopy performed by Dr. Loomis, post bronchoscopy increased subcutaneous emphysema.Surgegry has been consulted Will try to transfer pt to [facility] as her Oncologist is there also discussed with a infectious Disease, new will DC vancomycin.- continue meropenem, doxycycline. Infectious Disease will add trimethoprim/sulfamethoxazole for PJP coverage - given patient's PF ratio is 84, will place patient in prone position, add Nimbex 10/21/2025: CT chest without contrast 1. Severe pneumomediastinum with air tracking cephalad into the neck soft tissues resulting in extensive subcutaneous emphysema in the neck, and lies right-sided chest wall. 2. Multifocal consolidative changes and trace bilateral pleural effusions with overall worse appearance compared to October 16 exam. 3. Other findings as above. 10/16: Chest CTA MPRESSION: 1. Pulmonary emboli in subsegmental pulmonary arteries in the bilateral basilar lower lobes with relatively low clot burden and without evident right heart strain. Dr. French discussed these findings with Dr. Guadalupe at 4:40 PM. 2. Diffuse bilateral lung disease suspicious for atypical pneumonia with appearance similar to COVID pneumonia as manifest during the early stages of the pandemic. 3. Small amount of pneumomediastinum of indeterminate origin (2) Pneumonia: Code(s): J18.9 - Pneumonia, unspecified organism Status: Acute Assessment and Plan: As above (3) Pulmonary embolism: Code(s): I26.99 - Other pulmonary embolism without acute cor pulmonale Status: Acute Assessment and Plan: Continue heparin infusion, CTA PE protocol showed subsegmental pulmonary embolism in the bibasal lower lobes with low clot burden and without evidence of right heart strain. (4) Breast cancer: Code(s): C50.919 - Malignant neoplasm of unspecified site of unspecified female breast Status: Acute Assessment and Plan: Patient with breast cancer takes Verzenio, anastrozole, currently on hold, oncologist also agreed with holding these medications (5) Hx of supraventricular tachycardia: Code(s): Z86.79 - Personal history of other diseases of the circulatory system Status: Acute Assessment and Plan: Patient on Coreg, currently on hold. Heart rates are stable, regular rate and rhythm -continue to monitor (6) Hyperlipidemia: Code(s): E78.5 - Hyperlipidemia, unspecified Status: Acute Assessment and Plan: Continue pravastatin (7) Hypertension: Code(s): I10 - Essential (primary) hypertension Status: Acute Assessment and Plan: 10/19: Patient was hypotensive overnight, likely related to sedation, requiring Levophed for a brief amount of time. Currently off Levophed (8) Pneumomediastinum: Code(s): J98.2 - Interstitial emphysema Status: Acute Assessment and Plan: Likely related to coughing -will continue Robitussin per tube -will continue to monitor VS chest x-ray Plan DVT prophylaxis: Heparin infusion Stress ulcer prophylaxis: Protonix (patient does take omeprazole at home) Nutrition: Tolerating tube feeds 10/18: PICC line inserted Code Status: Full code Critical Care Time Spent: 35 minutes Discuss with daughter Sirisha and son Yasir, and the patient and updated them with patient's condition and plan of care. discussed with daughter, regarding transfer to [facility] for higher level of care. Due to a high probability of clinically significant, life threatening deterioration, the patient required my highest level of preparedness to intervene emergently and I personally spent this critical care time directly and personally managing the patient. This critical care time included obtaining a history; examining the patient; pulse oximetry; ordering and review of studies; arranging urgent treatment with development of a management plan; evaluation of patient's response to treatment; frequent reassessment; and discussions with other providers. It was exclusive of separately billable procedures and treating other patients and teaching time. Please see Assessment and Plan section and the rest of the note for further information on patient assessment and treatment This dictation may have been done utilizing a voice recognition system. Attempts have been made to correct errors. However, there may be uncorrected grammatical, spelling, and recognitions errors present. Subjective Date/time seen: 10/21/25 15:06 Interval history: Reason for consult: Acute respiratory failure, pneumonia/pneumonitis, pulmonary embolism, presented to the ED on 10/16/2025 with complaints of cough, shortness of breath 10/18: Intubated 10/21/2025: Patient seen examined the ICU, remains intubated on CMV mode of ventilation, peep of 10, 65% FiO2, sedated with propofol, fentanyl and Versed infusion. Does not open eyes or follow simple Commands. Urine output has been adequate, patient is afebrile, hemodynamically stable. Tolerating tube feeds 10/20/2025: Patient seen and examined the ICU, remains intubated, peep of 10, 70% FiO2. Sedated with propofol infusion, opens her eyes, dyssynchronous with the ventilator. I asked the bedside RN to start her back on fentanyl and Versed infusion. Urine output has been adequate, patient is afebrile, hemodynamically stable. Lactic acid is normal, LFTs trending down. Tolerating tube feeds Review of Systems Review of Systems: ROS unobtainable: Yes unobtainable due to endotracheal tube and unobtainable due to medical condition Exam Narrative: General: Intubated on sedation, in respiratory distress, coughing HEENT:? Pupils equal and reactive, sclera is clear Neck:? subcutaneous emphysema with crepitation Respiratory:? Coarse breath sounds diffusely, no wheezing, decreased at bases Cardiac:? S1-S2 is normal, regular rate and rhythm Abdomen:? Soft, nontender, nondistended, hypoactive bowel sounds Extremities:? Pitting edema bilateral lower extremities Neuro:? Intubated, sedated, does not opens her eyes or follow simple commands Skin:? No skin lesions noted Psych:? Unable to assess at this time Objective Data Vital Signs Vital Signs: Vital Signs - 24 hr 10/20/25 16:00 10/20/25 16:00 10/20/25 16:00 Temperature 98.8 F Pulse Rate 107 H Respiratory Rate 16 Blood Pressure 111/64 Pulse Oximetry 96 95 Oxygen Delivery Mechanical Ventilation Fraction of Inspired Oxygen 70 70 10/20/25 16:00 10/20/25 16:00 10/20/25 16:00 Temperature Pulse Rate 100 107 H 107 H Respiratory Rate 18 18 Blood Pressure Pulse Oximetry Oxygen Delivery Fraction of Inspired Oxygen 10/20/25 16:00 10/20/25 17:00 10/20/25 17:09 Temperature 98.8 F Pulse Rate 107 H 99 94 Respiratory Rate 18 18 Blood Pressure 107/61 Pulse Oximetry 95 97 Oxygen Delivery Mechanical Ventilation Fraction of Inspired Oxygen 60 10/20/25 17:51 10/20/25 17:51 10/20/25 18:00 Temperature 98.9 F Pulse Rate 103 H 103 H 100 Respiratory Rate 20 20 18 Blood Pressure 103/62 Pulse Oximetry 92 Oxygen Delivery Fraction of Inspired Oxygen 10/20/25 18:00 10/20/25 18:00 10/20/25 18:00 Temperature Pulse Rate 106 H 99 99 Respiratory Rate 18 18 Blood Pressure Pulse Oximetry Oxygen Delivery Fraction of Inspired Oxygen 10/20/25 18:00 10/20/25 19:00 10/20/25 19:55 Temperature 98.8 F Pulse Rate 99 103 H 103 H Respiratory Rate 18 20 20 Blood Pressure 100/76 Pulse Oximetry 93 93 Oxygen Delivery Mechanical Ventilation Fraction of Inspired Oxygen 60 10/20/25 20:00 10/20/25 20:00 10/20/25 20:00 Temperature 98.8 F Pulse Rate 99 98 Respiratory Rate 20 18 Blood Pressure 94/59 L Pulse Oximetry 92 Oxygen Delivery Fraction of Inspired Oxygen 60 10/20/25 20:00 10/20/25 20:00 10/20/25 20:00 Temperature Pulse Rate 98 98 99 Respiratory Rate 18 18 Blood Pressure Pulse Oximetry Oxygen Delivery Fraction of Inspired Oxygen 10/20/25 20:16 10/20/25 20:30 10/20/25 21:00 Temperature 98.7 F Pulse Rate 96 111 H 104 H Respiratory Rate 19 20 Blood Pressure 116/76 Pulse Oximetry 90 94 Oxygen Delivery Mechanical Ventilation Fraction of Inspired Oxygen 60 10/20/25 22:00 10/20/25 22:00 10/20/25 22:00 Temperature 98.9 F Pulse Rate 96 102 H 99 Respiratory Rate 17 18 Blood Pressure 103/69 Pulse Oximetry 92 Oxygen Delivery Fraction of Inspired Oxygen 10/20/25 22:00 10/20/25 22:00 10/20/25 22:13 Temperature Pulse Rate 99 99 102 H Respiratory Rate 18 18 19 Blood Pressure Pulse Oximetry Oxygen Delivery Fraction of Inspired Oxygen 10/20/25 22:17 10/20/25 22:17 10/20/25 22:27 Temperature Pulse Rate 108 H 107 H 112 H Respiratory Rate 25 H 22 H 26 H Blood Pressure Pulse Oximetry Oxygen Delivery Fraction of Inspired Oxygen 10/20/25 22:30 10/20/25 22:30 10/20/25 23:00 Temperature 99.0 F Pulse Rate 116 H 116 H 104 H Respiratory Rate 26 H 26 H 18 Blood Pressure 112/70 Pulse Oximetry 94 Oxygen Delivery Fraction of Inspired Oxygen 10/20/25 23:11 10/20/25 23:45 10/20/25 23:50 Temperature Pulse Rate 113 H 102 H Respiratory Rate 18 Blood Pressure Pulse Oximetry 93 95 Oxygen Delivery Mechanical Ventilation Mechanical Ventilation Fraction of Inspired Oxygen 65 65 65 10/21/25 00:00 10/21/25 00:00 10/21/25 00:00 Temperature Pulse Rate 100 100 100 Respiratory Rate 18 18 18 Blood Pressure Pulse Oximetry Oxygen Delivery Fraction of Inspired Oxygen 10/21/25 00:00 10/21/25 00:00 10/21/25 01:00 Temperature 99 F 99.1 F Pulse Rate 102 H 101 H 98 Respiratory Rate 20 23 H Blood Pressure 108/63 100/61 Pulse Oximetry 94 94 Oxygen Delivery Fraction of Inspired Oxygen 10/21/25 02:00 10/21/25 02:00 10/21/25 02:00 Temperature 99.1 F Pulse Rate 102 H 102 H 102 H Respiratory Rate 18 18 Blood Pressure 103/64 Pulse Oximetry 20 L Oxygen Delivery Fraction of Inspired Oxygen 10/21/25 02:04 10/21/25 02:04 10/21/25 02:07 Temperature Pulse Rate 107 H 107 H 103 H Respiratory Rate 19 19 18 Blood Pressure Pulse Oximetry Oxygen Delivery Fraction of Inspired Oxygen 10/21/25 02:22 10/21/25 02:50 10/21/25 02:58 Temperature Pulse Rate 107 H 107 H 109 H Respiratory Rate 19 19 Blood Pressure Pulse Oximetry 92 Oxygen Delivery Mechanical Ventilation Fraction of Inspired Oxygen 65 10/21/25 03:00 10/21/25 04:00 10/21/25 04:00 Temperature 99.0 F 98.9 F Pulse Rate 108 H 106 H 106 H Respiratory Rate 19 18 18 Blood Pressure 101/61 99/61 L Pulse Oximetry 94 92 92 Oxygen Delivery Mechanical Ventilation Fraction of Inspired Oxygen 65 10/21/25 04:00 10/21/25 04:00 10/21/25 04:00 Temperature Pulse Rate 105 H 105 H Respiratory Rate 18 18 Blood Pressure Pulse Oximetry Oxygen Delivery Fraction of Inspired Oxygen 65 10/21/25 04:00 10/21/25 04:00 10/21/25 05:00 Temperature 98.9 F Pulse Rate 105 H 109 H 108 H Respiratory Rate 18 18 Blood Pressure 111/69 Pulse Oximetry 94 Oxygen Delivery Fraction of Inspired Oxygen 10/21/25 05:00 10/21/25 05:05 10/21/25 05:30 Temperature Pulse Rate 108 H 113 H 115 H Respiratory Rate 18 32 H Blood Pressure Pulse Oximetry 93 Oxygen Delivery Mechanical Ventilation Fraction of Inspired Oxygen 65 10/21/25 06:00 10/21/25 06:00 10/21/25 06:00 Temperature 98.9 F Pulse Rate 108 H 107 H 107 H Respiratory Rate 18 18 Blood Pressure 109/63 Pulse Oximetry 94 Oxygen Delivery Fraction of Inspired Oxygen 10/21/25 06:00 10/21/25 06:00 10/21/25 06:09 Temperature Pulse Rate 108 H 108 H 106 H Respiratory Rate 18 18 18 Blood Pressure Pulse Oximetry Oxygen Delivery Fraction of Inspired Oxygen 10/21/25 06:10 10/21/25 06:10 10/21/25 07:00 Temperature 99 F Pulse Rate 107 H 108 H 100 Respiratory Rate 21 H 21 H 18 Blood Pressure 107/66 Pulse Oximetry 95 Oxygen Delivery Fraction of Inspired Oxygen 10/21/25 07:52 10/21/25 07:59 10/21/25 08:00 Temperature Pulse Rate 102 H 107 H 115 H Respiratory Rate 19 Blood Pressure Pulse Oximetry 96 Oxygen Delivery Mechanical Ventilation Mechanical Ventilation Fraction of Inspired Oxygen 65 65 10/21/25 08:00 10/21/25 08:08 10/21/25 08:55 Temperature Pulse Rate 115 H 108 H 106 H Respiratory Rate 19 Blood Pressure Pulse Oximetry 100 Oxygen Delivery Mechanical Ventilation Fraction of Inspired Oxygen 90 10/21/25 09:00 10/21/25 10:00 10/21/25 10:00 Temperature 99.2 F 99.2 F Pulse Rate 106 H 114 H 104 H Respiratory Rate 16 18 Blood Pressure 100/65 111/65 Pulse Oximetry 100 99 Oxygen Delivery Fraction of Inspired Oxygen 10/21/25 10:00 10/21/25 10:35 10/21/25 10:40 Temperature Pulse Rate 110 H 110 H Respiratory Rate 18 18 Blood Pressure Pulse Oximetry Oxygen Delivery Fraction of Inspired Oxygen 65 10/21/25 11:00 10/21/25 12:00 10/21/25 12:00 Temperature 99.0 F 98.9 F Pulse Rate 108 H 99 95 Respiratory Rate 19 25 H Blood Pressure 109/64 102/65 Pulse Oximetry 98 100 100 Oxygen Delivery Mechanical Ventilation Fraction of Inspired Oxygen 100 10/21/25 12:00 10/21/25 13:19 Temperature Pulse Rate 99 Respiratory Rate 22 H Blood Pressure 103/59 L Pulse Oximetry 100 Oxygen Delivery Mechanical Ventilation Fraction of Inspired Oxygen 90 Intake/Output Intake/Output: Intake & Output 10/18/25 10/19/25 10/20/25 10/21/25 23:59 23:59 23:59 23:59 Intake Total 1527.3 1706.0 2831.9 1502.5 Output Total 1050 860 800 650 Balance 477.3 846.0 2031.9 852.5 Meds/Results Medications: Active Medications Generic Name Dose Route Start Last Admin Trade Name Freq PRN Reason Stop Dose Admin Acetaminophen 650 mg 10/16/25 19:07 Acetaminophen 325 Mg Tablet PO Q4H PRN Mild Pain (1-3) or Fever Hydrocodone Bitart/Acetaminophen 1 tab 10/16/25 19:07 Hydrocodone/Acetaminophen (*Crx) 5-325 Mg Tablet PO Q4H PRN Moderate Pain (4-6) Albuterol/Ipratropium 3 ml 10/17/25 14:00 10/21/25 07:50 Ipratropium 0.5 Mg/Albuterol Sulfate 2.5 Mg (Base) Ampul.Neb 3 Ml INHALATION 3 ml Q6HRT [facility] Administration Amitriptyline HCl 50 mg 10/16/25 22:35 10/17/25 21:37 Amitriptyline Hcl 25 Mg Tablet PO Not Given On Hold: 10/18/25 10:18 QHS [facility] Anastrozole 1 mg 10/17/25 09:00 10/18/25 10:26 Anastrozole (*Chemo) 1 Mg Tablet PO Not Given On Hold: 10/18/25 10:18 DAILY [facility] Apixaban 10 mg 10/17/25 09:00 Apixaban 5 Mg Tablet PO On Hold: 10/17/25 09:00 Q12HR [facility] Comment: HEPARIN DRIP STARTED Budesonide 0.5 mg 10/17/25 09:50 10/21/25 07:51 Budesonide Respule Neb 0.5 Mg/2 Ml Amp INHALATION 0.5 mg Q12HRT [facility] Administration Carvedilol 40 mg 10/17/25 08:00 10/17/25 10:07 Carvedilol Cr 10 Mg Capsule PO Not Given On Hold: 10/17/25 09:00 DAILY@0800 [facility] Dextrose 12.5 gm 10/19/25 07:37 Dextrose 50% 25 Gm/50 Ml Syringe IV PUSH PRN PRN Hypoglycemia Protocol Docusate Sodium 100 mg 10/17/25 09:00 Docusate Sodium 100 Mg Capsule PO On Hold: 10/17/25 09:00 Q12HR [facility] Duloxetine HCl 60 mg 10/17/25 09:00 Duloxetine Hcl 60 Mg Capsule.Dr BY MOUTH On Hold: 10/17/25 09:00 DAILY [facility] Gabapentin 600 mg 10/16/25 19:35 10/16/25 20:13 Gabapentin 300 Mg Capsule PO 600 mg On Hold: 10/17/25 09:00 QPM [facility] Administration Gabapentin 300 mg 10/17/25 09:00 Gabapentin 300 Mg Capsule PO On Hold: 10/17/25 09:00 QAM [facility] Glucagon 1 mg 10/19/25 07:37 Glucagon For Inj 1 Mg Vial IM PRN PRN Hypoglycemia Protocol Glucose 15 gm 10/19/25 07:37 Glucose Oral Gel 15 Gm Of Glucse In 37.5 Gm Tube PO PRN PRN Hypoglycemia Protocol Guaifenesin 1,200 mg 10/16/25 21:00 10/18/25 11:47 Guaifenesin 12 Hr 600 Mg Tabcr PO Not Given On Hold: 10/18/25 19:28 Q12HR [facility] Resume: 10/25/25 09:00 Guaifenesin/Dextromethorphan 10 ml 10/19/25 10:00 10/21/25 09:26 Guaifenesin/Dextromethorphan 10 Ml Udc PO 10/22/25 09:59 10 ml Q6H [facility] Administration Heparin Sodium (Porcine) 4,000 units 10/17/25 01:19 10/21/25 13:49 Heparin Sodium 5,000 Units/Ml Vial IV PUSH 4,000 units PRN PRN Administration aPTT less than 55 seconds Heparin Sodium (Porcine) 2,500 units 10/17/25 01:19 10/21/25 06:15 Heparin Sodium 5,000 Units/Ml Vial IV PUSH 2,500 units PRN PRN Administration aPTT 55 - 70 seconds Heparin Sodium/Dextrose 25,000 units in 250 mls @ 13 mls/hr 10/17/25 01:19 10/21/25 13:51 Heparin Sodium/D5w 100 Units/Ml IV CONT 1,300 units/hr .[id number] [facility] 13 mls/hr Protocol Titration 1,300 UNITS/HR Meropenem 1 gm/ Sodium 100 mls @ 200 mls/hr 10/17/25 18:00 10/21/25 05:54 Chloride IVPB Infused Q12H [facility] Infusion Doxycycline Hyclate 100 mg/ 100 mls @ 100 mls/hr 10/17/25 21:00 10/21/25 09:11 Sodium Chloride IVPB 100 mls/hr Q12H [facility] Administration Fentanyl Citrate 2,500 mcg in 250 mls @ 10 mls/hr 10/18/25 09:20 10/21/25 06:00 Fentanyl 2,500 Mcg/Ns 250 Ml IV CONT 100 mcg/hr .Q25H [facility] 10 mls/hr Protocol Titration 100 MCG/HR Midazolam HCl 100 mg in 100 mls @ 3 mls/hr 10/18/25 09:20 10/21/25 06:09 Versed 100 Mg/Ns 100 Ml IV CONT 3 mg/hr .[id number] [facility] 3 mls/hr Protocol Administration 3 MG/HR Norepinephrine Bitartrate 8 mg in 250 mls @ 0 mls/hr 10/18/25 19:40 10/20/25 07:00 Levophed 8 Mg/D5w 250 Ml IV CONT Infused .Q0M [facility] Titration Protocol Dextrose 1,000 mls @ 100 mls/hr 10/19/25 07:37 Dextrose 5% 1,000 Ml IVPB PRN PRN Hypoglycemia Protocol Propofol 100 mls @ 22.65 mls/hr 10/19/25 10:25 10/21/25 10:40 Diprivan IV CONT 50 mcg/kg/min .Q4H25M [facility] 22.65 mls/hr Protocol Administration 50 MCG/KG/MIN Cisatracurium Besylate 200 mg/ 100 mls @ 6.795 mls/hr 10/21/25 13:00 10/21/25 13:19 Sodium Chloride IV CONT 3 mcg/kg/min .[id number] [facility] 6.8 mls/hr Protocol Administration 3 MCG/KG/MIN Trimethoprim/Sulfamethoxazole 523.6 mls @ 261.8 mls/hr 10/21/25 14:00 23.6 ml/ Dextrose IVPB Q8H [facility] Insulin Aspart 3 - 6 units 10/19/25 12:00 10/21/25 06:23 Insulin Aspart (*Bkc) 100 Units/Ml SUB-Q Not Given Q6HR [facility] Protocol Levothyroxine Sodium 50 mcg 10/17/25 06:30 10/21/25 05:15 Levothyroxine Sodium 50 Mcg Tablet PO 50 mcg DAILY@0630 [facility] Administration Methocarbamol 500 mg 10/16/25 18:45 Methocarbamol 500 Mg Tablet PO On Hold: 10/17/25 09:00 QID PRN Spasms Methylprednisolone Sodium Succinate 60 mg 10/19/25 08:00 10/21/25 13:30 Methylprednisolone Sod Succ 125 Mg Vial IV PUSH 60 mg Q6H [facility] Administration Multi-Ingred Cream/Lotion/Oil/Oint 1 applic 10/18/25 21:00 10/21/25 09:26 Mineral Oil/White Petrolatum Ointment EACH EYE 1 applic Q12HR [facility] Administration Multi-Ingred Cream/Lotion/Oil/Oint 1 applic 10/21/25 21:00 Mineral Oil/White Petrolatum Ointment EACH EYE Q12HR [facility] Home Med (Vibegron [ 75 mg 10/17/25 09:00 10/18/25 10:28 Gemtesa] 75 Mg PO 11/16/25 08:59 Not Given Tablet) DAILY [facility] On Hold: 10/18/25 10:20 Ondansetron HCl 4 mg 10/17/25 07:51 10/18/25 06:55 Ondansetron Inj 4 Mg/2 Ml Vial IV PUSH 4 mg Q6H PRN Administration Nausea And Vomiting Pantoprazole Sodium 40 mg 10/18/25 09:00 10/21/25 09:11 Pantoprazole Sodium Iv 40 Mg Vial IV PUSH 40 mg QAM [facility] Administration Pravastatin Sodium 40 mg 10/16/25 19:05 10/21/25 09:11 Pravastatin Sodium 20 Mg Tablet BY MOUTH 40 mg DAILY [facility] Administration Prochlorperazine Maleate 10 mg 10/16/25 22:25 10/16/25 23:12 Prochlorperazine Maleate 5 Mg Tablet PO 10 mg On Hold: 10/17/25 09:00 Q8H PRN Administration Nausea And Vomiting Sodium Chloride 10 ml 10/18/25 14:00 10/21/25 13:54 Central Line Flush IV PUSH 10 ml Q8HR [facility] Administration Sodium Chloride 10 ml 10/18/25 10:10 Central Line Flush IV PUSH PRN PRN with TPN bag changes Sodium Chloride 20 ml 10/18/25 10:10 10/20/25 05:27 Central Line Flush IV PUSH 20 ml PRN PRN Administration after blood draws Radiology Results: ITS Impressions Chest CTA 10/16/25 16:25 IMPRESSION: 1. Pulmonary emboli in subsegmental pulmonary arteries in the bilateral basilar lower lobes with relatively low clot burden and without evident right heart strain. Dr. French discussed these findings with Dr. Guadalupe at 4:40 PM. 2. Diffuse bilateral lung disease suspicious for atypical pneumonia with appearance similar to COVID pneumonia as manifest during the early stages of the pandemic. 3. Small amount of pneumomediastinum of indeterminate origin. Chest X-Ray 10/21/25 12:36 Impression: Bilateral pneumonia. Large amount of subcutaneous air. Evaluation for pneumothorax or pneumomediastinum is limited. CT suggested to assess as clinically one Chest CT 10/21/25 14:20 IMPRESSION: 1. Severe pneumomediastinum with air tracking cephalad into the neck soft tissues resulting in extensive subcutaneous emphysema in the neck, and lies right-sided chest wall. 2. Multifocal consolidative changes and trace bilateral pleural effusions with overall worse appearance compared to October 16 exam. 3. Other findings as above. Labs Labs: Laboratory Results - last 24 hr 10/20/25 10/20/25 10/20/25 04:26 15:50 17:36 WBC RBC Hgb Hct MCV MCH MCHC RDW Plt Count MPV Immature Gran % (Auto) Neut % (Auto) Lymph % (Auto) [place] % (Auto) Eos % (Auto) Baso % (Auto) Lymph # (Auto) [place] # (Auto) Eos # (Auto) Baso # (Auto) Abs Immat Gran (auto) Absolute Neuts (auto) Absolute Nucleated RBC Band Neutrophils % Nucleated RBC % Platelet Estimate Macrocytosis Schistocytes APTT Puncture Site ABG pH ABG pCO2 ABG pO2 ABG PO2/FiO2 Ratio ABG HCO3 ABG O2 Saturation Not Reportable ABG O2 Content ABG Base Excess A-a Gradient Oxyhemoglobin Not Reportable Carboxyhemoglobin Methemoglobin Reduced Hemoglobin Total Hemoglobin O2 Delivery Device O2 Liters/Min Minute Volume Not Reportable Vent Rate 18 Vent Mode Cmv FiO2 Tidal Volume 350 PEEP 10 Peak Inspir Pressure Not Reportable Pressure Support Not Reportable Sodium Potassium Chloride Carbon Dioxide Anion Gap BUN Creatinine Estim Creat Clear Calc Estimated GFR Glucose POC Capillary Glucose 156 H Calcium Phosphorus Magnesium Total Bilirubin AST ALT Alkaline Phosphatase Total Protein Albumin Triglycerides Bronch Specimen Source Bronchial Fluid Color Bronchial Fluid Appearance Bronchial Neutrophils Bronchial Lymphocytes Bronchial Monocytes Bronchial Eosinophils Bronchial Macrophages Bronchial Other Cells Vancomycin Trough 11.8 C. pneumoniae DNA (PCR) Chlamydia DNA Source HSV I DNA PCR HSV II DNA PCR Pneumocystis carinii Ag Resp Viral Panel Intrp Viral Specimen Source 10/21/25 10/21/25 10/21/25 00:16 05:09 05:16 WBC 7.6 RBC 2.45 L Hgb 10.0 L Hct 28.7 L MCV 117.1 H MCH 40.8 H MCHC 34.8 RDW 15.6 H Plt Count 121 L MPV 10.1 Immature Gran % (Auto) 1.6 H Neut % (Auto) 90.6 H Lymph % (Auto) 2.9 L [place] % (Auto) 4.6 Eos % (Auto) 0.0 Baso % (Auto) 0.3 Lymph # (Auto) 0.22 L [place] # (Auto) 0.4 Eos # (Auto) 0.0 Baso # (Auto) 0.0 Abs Immat Gran (auto) 0.12 H Absolute Neuts (auto) 6.9 H Absolute Nucleated RBC 0.020 H Band Neutrophils % Not Reportable Nucleated RBC % 0.3 H Platelet Estimate Decreased Macrocytosis 1+ Schistocytes None seen APTT 56.4 H Puncture Site Right brachial ABG pH 7.412 ABG pCO2 44.4 ABG pO2 55.5 L ABG PO2/FiO2 Ratio 0.85 ABG HCO3 27.6 H ABG O2 Saturation 89.1 L ABG O2 Content 15.5 L ABG Base Excess 2.6 A-a Gradient 359.7 Oxyhemoglobin 86.4 L* Carboxyhemoglobin 1.6 Methemoglobin 0.3 Reduced Hemoglobin 11.7 H Total Hemoglobin 12.8 O2 Delivery Device Ventilator O2 Liters/Min Not Reportable Minute Volume Not Reportable Vent Rate 18 Vent Mode Cmv FiO2 65 Tidal Volume 350 PEEP 10 Peak Inspir Pressure Not Reportable Pressure Support Not Reportable Sodium 133 L Potassium 3.8 Chloride 104 Carbon Dioxide 31 H Anion Gap -2 L BUN 18 H Creatinine 0.51 L Estim Creat Clear Calc 95 Estimated GFR > 60 Glucose 165 H POC Capillary Glucose 157 H Calcium 7.8 L Phosphorus 2.1 L Magnesium 2.6 H Total Bilirubin 0.4 AST 29 ALT 71 H Alkaline Phosphatase 223 H Total Protein 5.4 L Albumin 2.7 L Triglycerides 127 Bronch Specimen Source Bronchial Fluid Color Bronchial Fluid Appearance Bronchial Neutrophils Bronchial Lymphocytes Bronchial Monocytes Bronchial Eosinophils Bronchial Macrophages Bronchial Other Cells Vancomycin Trough C. pneumoniae DNA (PCR) Chlamydia DNA Source HSV I DNA PCR HSV II DNA PCR Pneumocystis carinii Ag Resp Viral Panel Intrp Viral Specimen Source 10/21/25 10/21/25 12:05 12:25 WBC RBC Hgb Hct MCV MCH MCHC RDW Plt Count MPV Immature Gran % (Auto) Neut % (Auto) Lymph % (Auto) [place] % (Auto) Eos % (Auto) Baso % (Auto) Lymph # (Auto) [place] # (Auto) Eos # (Auto) Baso # (Auto) Abs Immat Gran (auto) Absolute Neuts (auto) Absolute Nucleated RBC Band Neutrophils % Nucleated RBC % Platelet Estimate Macrocytosis Schistocytes APTT 27.1 Puncture Site ABG pH ABG pCO2 ABG pO2 ABG PO2/FiO2 Ratio ABG HCO3 ABG O2 Saturation ABG O2 Content ABG Base Excess A-a Gradient Oxyhemoglobin Carboxyhemoglobin Methemoglobin Reduced Hemoglobin Total Hemoglobin O2 Delivery Device O2 Liters/Min Minute Volume Vent Rate Vent Mode FiO2 Tidal Volume PEEP Peak Inspir Pressure Pressure Support Sodium Potassium Chloride Carbon Dioxide Anion Gap BUN Creatinine Estim Creat Clear Calc Estimated GFR Glucose POC Capillary Glucose 135 H Calcium Phosphorus Magnesium Total Bilirubin AST ALT Alkaline Phosphatase Total Protein Albumin Triglycerides Bronch Specimen Source Bronchial lavage Bronchial Fluid Color Red Bronchial Fluid Appearance Cloudy Bronchial Neutrophils 47 Bronchial Lymphocytes 48 Bronchial Monocytes 2 Bronchial Eosinophils 0 Bronchial Macrophages 3 Bronchial Other Cells 0 Vancomycin Trough C. pneumoniae DNA (PCR) Cancelled Chlamydia DNA Source Cancelled HSV I DNA PCR Cancelled HSV II DNA PCR Cancelled Pneumocystis carinii Ag Cancelled Resp Viral Panel Intrp Cancelled Viral Specimen Source Cancelled Quality VTE Prophylaxis VTE prophylaxis: pharmacologic ordered
--- NOTE | 2025-10-21 16:00 | PC.NURSE ---
Received order from Dr Montaño to hold tube feeding at this time. Titrate FIO2 down, begin to decrease Nimbex. Orders read back and verified.
--- NOTE | 2025-10-21 17:43 | WPDIDCN ---
Assessment and Plan Assessment and plan (1) Bilateral pneumonia: Code(s): J18.9 - Pneumonia, unspecified organism Status: Acute Plan ASSESSMENT: 1. pneumonia/pneumonitis; r/o infectious etiology vs medication related 2. acute respiratory failure; intubated; strep pneumo neg; legionella neg; MRSA nares neg; +pulmonary embolus 3. immunocompromised host 4. breast cancer 5. HTN, HL 6. 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 Chart, data and patient info reviewed. Patient was located at [facility] while I was in my [place] office. Pt gave consent. HPI Data of Consult Date/Time: 10/21/25 17:43 Requesting Physician: Jyoti Cuevas MD Primary Care Provider: Yossi Reaves MD Consult Narrative Reason for consult: pnuemonia/pneumoniitis Narrative: Yamileth Sims is a 65 year old female with pmhx/o breast cancer, HTN, HL, anxiety, depression, recently treated for respiratory illness with z-gregorio, presented with acute respiratory failure, now in ICU on vent. On broad spectrum abx. Work up for possible pneumonia has not yielded a pathogen yet. Had BAL today. Imaging wth pneumonitis. Plan is to paralyze and prone on vent. No pressors on board. [facility] Past Medical History Medical History (Updated 10/17/25 @ 09:41 by Derik Montaño MD) Breast cancer COVID-19 Cervicalgia Chronic low back pain Back pain associated with peripheral numbness Screening for colon cancer Screening for breast cancer Postmenopausal SVT (supraventricular tachycardia) 2010 History of tongue cancer Anxiety and depression Attention deficit hyperactivity disorder (ADHD), combined type Grade II diastolic dysfunction Mitral valve prolapse Other and unspecified hyperlipidemia Primary insomnia Surgical History Surgical History History of laparoscopic cholecystectomy 05/09/20 H/O rectal sphincterotomy Endometriosis determined by laparoscopy History of tonsillectomy H/O section S/P bunionectomy History of carpal tunnel release Family History Family History (Updated 10/16/25 @ 20:09 by Bindu Bonilla RN) Mother Alzheimer disease Unknown Colon cancer Social History Social History Smoking status: Never smoker Second hand tobacco smoke exposure: No Alcohol intake: current Alcohol use details: a glass of wine every night with dinner Substance use: never Substance use type: does not use Lack of Transportation: No Lack of Food: Never True Current Housing: I Have Housing Concerned About Future Housing: No Difficulty Paying Gas/Electric Bills: No Difficulty Paying for Meds: No Currently Unemployed: No Education: Master's Degree or Higher Difficulty w/ Childcare or Family Care: No Living arrangements: with family Occupation/Education: occupation Gender identity (if verbalized by the patient): Female Sexual Orientation (if Verbalized by the Patient): Straight or Heterosexual Spiritual care concerns: No Agree to blood products: Yes Meds Home Medications and Allergies Home Medications ?Medication ?Instructions ?Recorded ?Confirmed ?Type anastrozole 1 mg tablet 1 mg PO DAILY #1 tablet 03/01/23 10/16/25 Rx prochlorperazine maleate 10 mg 10 mg PO Q8H PRN nausea and 03/01/23 10/16/25 Rx tablet vomiting #1 tablet gabapentin 300 mg capsule 300 mg PO BID 10/04/23 10/16/25 History vibegron 75 mg tablet (Gemtesa) 75 mg PO DAILY 10/04/23 10/16/25 History dicyclomine 20 mg tablet 20 mg PO QID PRN abdominal pain 04/10/24 10/16/25 History abemaciclib 150 mg tablet 150 mg PO BID 10/15/24 10/16/25 History (Verzenio) carvedilol phosphate 40 mg See Rx Instructions .Route 01/31/25 10/16/25 Rx capsule,[id number] multiphase .COMPLEX #90 caps ondansetron 4 mg disintegrating 4 mg PO Q8H PRN nausea and 04/02/25 10/16/25 Rx tablet vomiting #7 tabs biotin 10,000 mcg capsule 10,000 mcg PO DAILY 04/22/25 10/16/25 History calcium carbonate 600 mg PO BID 04/22/25 10/16/25 History multivitamin (Daily Multi-Vitamin 1 tablet PO DAILY 04/22/25 10/16/25 History tablet) vitamin B complex 1 tablet PO DAILY 04/22/25 10/16/25 History pravastatin 40 mg tablet See Rx Instructions .Route 08/27/25 10/16/25 Rx .COMPLEX #90 tabs omeprazole 20 mg capsule,delayed See Rx Instructions .Route 10/02/25 10/16/25 Rx release .COMPLEX #90 caps dextroamphetamine-amphetamine 15 15 mg PO BID #60 tabs 10/09/25 10/16/25 Rx mg tablet (Adderall) duloxetine 60 mg capsule,delayed See Rx Instructions .Route 10/09/25 10/16/25 Rx release .COMPLEX #90 caps amitriptyline 50 mg tablet 50 mg PO QHS 10/16/25 10/16/25 History levothyroxine 50 mcg tablet 50 mcg PO DAILY 10/16/25 10/16/25 History Allergies Allergy/AdvReac Type Severity Reaction Status Date / Time Penicillins Allergy Intermediate Hives Verified 10/16/25 20:08 adhesive tape AdvReac Mild RASH, Verified 10/16/25 20:08 ITCHING Vital Signs Vital Signs - 24 hr 10/20/25 17:51 10/20/25 17:51 10/20/25 18:00 Temperature 98.9 F Pulse Rate 103 H 103 H 100 Respiratory Rate 20 20 18 Blood Pressure 103/62 Pulse Oximetry 92 Oxygen Delivery Fraction of Inspired Oxygen 10/20/25 18:00 10/20/25 18:00 10/20/25 18:00 Temperature Pulse Rate 106 H 99 99 Respiratory Rate 18 18 Blood Pressure Pulse Oximetry Oxygen Delivery Fraction of Inspired Oxygen 10/20/25 18:00 10/20/25 19:00 10/20/25 19:55 Temperature 98.8 F Pulse Rate 99 103 H 103 H Respiratory Rate 18 20 20 Blood Pressure 100/76 Pulse Oximetry 93 93 Oxygen Delivery Mechanical Ventilation Fraction of Inspired Oxygen 60 10/20/25 20:00 10/20/25 20:00 10/20/25 20:00 Temperature 98.8 F Pulse Rate 99 98 Respiratory Rate 20 18 Blood Pressure 94/59 L Pulse Oximetry 92 Oxygen Delivery Fraction of Inspired Oxygen 60 10/20/25 20:00 10/20/25 20:00 10/20/25 20:00 Temperature Pulse Rate 98 98 99 Respiratory Rate 18 18 Blood Pressure Pulse Oximetry Oxygen Delivery Fraction of Inspired Oxygen 10/20/25 20:16 10/20/25 20:30 10/20/25 21:00 Temperature 98.7 F Pulse Rate 96 111 H 104 H Respiratory Rate 19 20 Blood Pressure 116/76 Pulse Oximetry 90 94 Oxygen Delivery Mechanical Ventilation Fraction of Inspired Oxygen 60 10/20/25 22:00 10/20/25 22:00 10/20/25 22:00 Temperature 98.9 F Pulse Rate 96 102 H 99 Respiratory Rate 17 18 Blood Pressure 103/69 Pulse Oximetry 92 Oxygen Delivery Fraction of Inspired Oxygen 10/20/25 22:00 10/20/25 22:00 10/20/25 22:13 Temperature Pulse Rate 99 99 102 H Respiratory Rate 18 18 19 Blood Pressure Pulse Oximetry Oxygen Delivery Fraction of Inspired Oxygen 10/20/25 22:17 10/20/25 22:17 10/20/25 22:27 Temperature Pulse Rate 108 H 107 H 112 H Respiratory Rate 25 H 22 H 26 H Blood Pressure Pulse Oximetry Oxygen Delivery Fraction of Inspired Oxygen 10/20/25 22:30 10/20/25 22:30 10/20/25 23:00 Temperature 99.0 F Pulse Rate 116 H 116 H 104 H Respiratory Rate 26 H 26 H 18 Blood Pressure 112/70 Pulse Oximetry 94 Oxygen Delivery Fraction of Inspired Oxygen 10/20/25 23:11 10/20/25 23:45 10/20/25 23:50 Temperature Pulse Rate 113 H 102 H Respiratory Rate 18 Blood Pressure Pulse Oximetry 93 95 Oxygen Delivery Mechanical Ventilation Mechanical Ventilation Fraction of Inspired Oxygen 65 65 65 10/21/25 00:00 10/21/25 00:00 10/21/25 00:00 Temperature Pulse Rate 100 100 100 Respiratory Rate 18 18 18 Blood Pressure Pulse Oximetry Oxygen Delivery Fraction of Inspired Oxygen 10/21/25 00:00 10/21/25 00:00 10/21/25 01:00 Temperature 99 F 99.1 F Pulse Rate 102 H 101 H 98 Respiratory Rate 20 23 H Blood Pressure 108/63 100/61 Pulse Oximetry 94 94 Oxygen Delivery Fraction of Inspired Oxygen 10/21/25 02:00 10/21/25 02:00 10/21/25 02:00 Temperature 99.1 F Pulse Rate 102 H 102 H 102 H Respiratory Rate 18 18 Blood Pressure 103/64 Pulse Oximetry 20 L Oxygen Delivery Fraction of Inspired Oxygen 10/21/25 02:04 10/21/25 02:04 10/21/25 02:07 Temperature Pulse Rate 107 H 107 H 103 H Respiratory Rate 19 19 18 Blood Pressure Pulse Oximetry Oxygen Delivery Fraction of Inspired Oxygen 10/21/25 02:22 10/21/25 02:50 10/21/25 02:58 Temperature Pulse Rate 107 H 107 H 109 H Respiratory Rate 19 19 Blood Pressure Pulse Oximetry 92 Oxygen Delivery Mechanical Ventilation Fraction of Inspired Oxygen 65 10/21/25 03:00 10/21/25 04:00 10/21/25 04:00 Temperature 99.0 F 98.9 F Pulse Rate 108 H 106 H 106 H Respiratory Rate 19 18 18 Blood Pressure 101/61 99/61 L Pulse Oximetry 94 92 92 Oxygen Delivery Mechanical Ventilation Fraction of Inspired Oxygen 65 10/21/25 04:00 10/21/25 04:00 10/21/25 04:00 Temperature Pulse Rate 105 H 105 H Respiratory Rate 18 18 Blood Pressure Pulse Oximetry Oxygen Delivery Fraction of Inspired Oxygen 65 10/21/25 04:00 10/21/25 04:00 10/21/25 05:00 Temperature 98.9 F Pulse Rate 105 H 109 H 108 H Respiratory Rate 18 18 Blood Pressure 111/69 Pulse Oximetry 94 Oxygen Delivery Fraction of Inspired Oxygen 10/21/25 05:00 10/21/25 05:05 10/21/25 05:30 Temperature Pulse Rate 108 H 113 H 115 H Respiratory Rate 18 32 H Blood Pressure Pulse Oximetry 93 Oxygen Delivery Mechanical Ventilation Fraction of Inspired Oxygen 65 10/21/25 06:00 10/21/25 06:00 10/21/25 06:00 Temperature 98.9 F Pulse Rate 108 H 107 H 107 H Respiratory Rate 18 18 Blood Pressure 109/63 Pulse Oximetry 94 Oxygen Delivery Fraction of Inspired Oxygen 10/21/25 06:00 10/21/25 06:00 10/21/25 06:09 Temperature Pulse Rate 108 H 108 H 106 H Respiratory Rate 18 18 18 Blood Pressure Pulse Oximetry Oxygen Delivery Fraction of Inspired Oxygen 10/21/25 06:10 10/21/25 06:10 10/21/25 07:00 Temperature 99 F Pulse Rate 107 H 108 H 100 Respiratory Rate 21 H 21 H 18 Blood Pressure 107/66 Pulse Oximetry 95 Oxygen Delivery Fraction of Inspired Oxygen 10/21/25 07:52 10/21/25 07:59 10/21/25 08:00 Temperature Pulse Rate 102 H 107 H 115 H Respiratory Rate 19 Blood Pressure Pulse Oximetry 96 Oxygen Delivery Mechanical Ventilation Mechanical Ventilation Fraction of Inspired Oxygen 65 65 10/21/25 08:00 10/21/25 08:08 10/21/25 08:55 Temperature Pulse Rate 115 H 108 H 106 H Respiratory Rate 19 Blood Pressure Pulse Oximetry 100 Oxygen Delivery Mechanical Ventilation Fraction of Inspired Oxygen 90 10/21/25 09:00 10/21/25 10:00 10/21/25 10:00 Temperature 99.2 F 99.2 F Pulse Rate 106 H 114 H 104 H Respiratory Rate 16 18 Blood Pressure 100/65 111/65 Pulse Oximetry 100 99 Oxygen Delivery Fraction of Inspired Oxygen 10/21/25 10:00 10/21/25 10:35 10/21/25 10:40 Temperature Pulse Rate 110 H 110 H Respiratory Rate 18 18 Blood Pressure Pulse Oximetry Oxygen Delivery Fraction of Inspired Oxygen 65 10/21/25 11:00 10/21/25 12:00 10/21/25 12:00 Temperature 99.0 F 98.9 F Pulse Rate 108 H 99 95 Respiratory Rate 19 25 H Blood Pressure 109/64 102/65 Pulse Oximetry 98 100 100 Oxygen Delivery Mechanical Ventilation Fraction of Inspired Oxygen 100 10/21/25 12:00 10/21/25 12:00 10/21/25 13:19 Temperature Pulse Rate 99 99 Respiratory Rate 22 H Blood Pressure 103/59 L Pulse Oximetry 100 Oxygen Delivery Mechanical Ventilation Fraction of Inspired Oxygen 90 10/21/25 14:00 10/21/25 15:00 10/21/25 15:00 Temperature 98.8 F Pulse Rate 110 H 106 H 99 Respiratory Rate 19 Blood Pressure 99/70 L Pulse Oximetry 100 100 Oxygen Delivery Mechanical Ventilation Fraction of Inspired Oxygen 100 10/21/25 15:00 10/21/25 15:00 10/21/25 15:05 Temperature Pulse Rate 110 H 111 H 106 H Respiratory Rate 18 17 Blood Pressure Pulse Oximetry Oxygen Delivery Fraction of Inspired Oxygen 100 100 10/21/25 15:06 10/21/25 15:15 10/21/25 15:31 Temperature Pulse Rate 106 H 107 H 109 H Respiratory Rate 17 19 19 Blood Pressure Pulse Oximetry Oxygen Delivery Fraction of Inspired Oxygen 10/21/25 16:00 10/21/25 16:00 10/21/25 16:00 Temperature Pulse Rate 112 H Respiratory Rate Blood Pressure Pulse Oximetry 100 Oxygen Delivery Mechanical Ventilation Fraction of Inspired Oxygen 100 65 10/21/25 16:00 10/21/25 16:00 10/21/25 17:24 Temperature 98.8 F 98.8 F Pulse Rate 110 H 110 H 117 H Respiratory Rate 19 19 19 Blood Pressure 103/71 103/71 110/70 Pulse Oximetry 100 100 Oxygen Delivery Fraction of Inspired Oxygen 10/21/25 17:40 Temperature Pulse Rate 117 H Respiratory Rate 19 Blood Pressure 103/71 Pulse Oximetry Oxygen Delivery Fraction of Inspired Oxygen Exam Narrative: +ETT +OGT not a lot of secretions; on vent RRR BS slightly coarse pale abd soft NT LUE PICC Results Labs 10/21/25 05:09 10/21/25 05:09 Labs: Short CBC 10/21/25 Range/Units 05:09 WBC 7.6 (4.5-10.0) K/mm3 Hgb 10.0 L (12.0-15.0) g/dL Hct 28.7 L (37.0-47.0) % Plt Count 121 L (150-375) k/mm3 BMP 10/21/25 05:09 Sodium 133 L Potassium 3.8 Chloride 104 Carbon Dioxide 31 H BUN 18 H Creatinine 0.51 L Glucose 165 H Calcium 7.8 L Liver Function 10/21/25 Range/Units 05:09 Total Bilirubin 0.4 (0.2-1.3) mg/dL AST 29 (14-36) U/L ALT 71 H (6-35) U/L Alkaline Phosphatase 223 H (38-126) U/L Albumin 2.7 L (3.5-5.1) g/dL
[2025-10-21] MEDS: HEPARIN SOD/D5W 100 UNITS/ML 25,000 UNITS/250 ML BAG 13 UNITS IV CONT (18:01)
[2025-10-21 20:41] LABS: Partial Thromboplastin Time > 200.0 Seconds (22.3-36.8)
[2025-10-21] MEDS: FENTANYL 2,500MCG/NS250ML(*CRX 2,500 MCG/250 ML BAG 20 MCG IV CONT (22:25)
[2025-10-22] VITALS (65 sets, daily range): BP systolic 82–156; BP diastolic 55–91; PULSE 90–117; RESP 18–24; TEMP 36.4–37.6; O2SAT 93–100
[2025-10-22] MEDS: CISATRACURIUM BESYLATE 200 MG in SODIUM CHLORIDE 0.9% IV 80 ML 19.25 ML IV CONT (00:36)
[2025-10-22] MEDS: IPRATROPIUM 0.5 MG/ALBUTEROL SULFATE 2.5 MG (BASE) AMPUL.NEB 3 ML INHALATION ×4 (02:26→20:09)
[2025-10-22] MEDS: PROPOFOL IV EMULSION 100 ML 22.65 MG IV CONT ×2 (02:56→07:11)
[2025-10-22 04:02] LABS: Hematocrit 25.7 % (37.0-47.0); Hemoglobin 9.1 g/dL (12.0-15.0); Immature Granulocyte Percent A 1.8 % (0-0.5); Immature Platelet Fraction Pct 4.0 % (0.9-11.2); Lymphocytes Absolute Auto 0.34 K/mm3 (0.9-3.2); Mean Corpuscular HGB Conc 35.4 g/dl (32-36); Mean Corpuscular Hemoglobin 40.8 pg (26-34); Mean Corpuscular Volume 115.2 fl (80-100); Nucleated Red Blood Cells Absolute Auto 0.050 K/mm3 (0.0-0.012); Nucleated Red Blood Cells Perc 0.8 % (0.0-0.2); Platelet Count Result 113 k/mm3 (150-375); Red Blood Count 2.23 M/mm3 (4.2-5.4); White Blood Count 6.6 K/mm3 (4.5-10.0)
[2025-10-22 04:11] LABS: Alanine Aminotransferase 47 U/L (6-35); Albumin Level 2.4 g/dL (3.5-5.1); Alkaline Phosphatase 179 U/L (38-126); Anion Gap -3 mmol/L (4-12); Aspartate Amino Transferase 27 U/L (14-36); Bilirubin,Total 0.3 mg/dL (0.2-1.3); Blood Urea Nitrogen 14 mg/dL (7-17); Calcium 7.4 mg/dL (8.4-10.2); Carbon Dioxide 34 mmol/L (22-30); Chloride 101 mmol/L (98-107); Estimated CRCL calculation 86 ml/min; Estimated Glomerular Filt Rate > 60; Glucose 121 mg/dL (65-110); Magnesium 2.5 mg/dL (1.6-2.3); Potassium 3.9 mmol/L (3.4-5.0); Sodium 132 mmol/L (137-145); Total Protein 4.8 g/dL (6.3-8.2)
[2025-10-22 04:17] LABS: Partial Thromboplastin Time 126.7 Seconds (22.3-36.8)
[2025-10-22] MEDS: MIDAZOLAM 100MG/NS 100ML(*CRX) 100 MG/100 ML BAG 10 MG IV CONT ×2 (04:26→14:41)
[2025-10-22] MEDS: CENTRAL LINE FLUSH 10 ML IV PUSH ×3 (05:02→20:26)
[2025-10-22] MEDS: MEROPENEM 1 GM in SODIUM CHLORIDE 0.9% IV 100 ML 200 ML IVPB ×2 (05:02→17:30)
[2025-10-22 05:24] LABS: Hypochromasia 1+
[2025-10-22 05:25] LABS: Anisocytosis 1+; Ovalocytes Occasional; Schistocytes None Seen
[2025-10-22] MEDS: CISATRACURIUM BESYLATE 200 MG in SODIUM CHLORIDE 0.9% IV 80 ML 20.39 ML IV CONT (05:33)
[2025-10-22] MEDS: LEVOTHYROXINE SODIUM 50 MCG TABLET PO (05:36)
[2025-10-22 05:48] LABS: Alveolar/Arterial O2 Gradient 337.9 mmHg; Carboxyhemoglobin 0.9 % THb (0-2.0); Fractional Inspired Oxygen 65 %; HCO3 ABG 30.1 mEq/l (22.0-26.0); Methemoglobin ABG 0.3 %THb (0-1.5); Oxygen Content ABG 13.1 %vol (16.0-22.0); Oxygen Saturation ABG 95.0 % (95.0-100.0); PCO2 ABG 47.3 mmHg (35.0-45.0); PO2 ABG 74.1 mmHg (80.0-100.0); PO2 FiO2 Ratio Arterial Blood 1.14 %; Reduced Hemoglobin 5.2 %THb (0-5.0)
[2025-10-22 06:22] LABS: Arterial Blood Gas Ventilator rate 18 /MIN; Site Drawn RIGHT RADIAL
[2025-10-22 06:23] LABS: Arterial Blood Gas Tidal Volume 350 ml
[2025-10-22] MEDS: BUDESONIDE RESPULE NEB 0.5 MG/2 ML AMP INHALATION ×2 (08:34→20:09)
[2025-10-22 08:48] LABS: NT Pro B Type Natriuretic Pept 391 pg/mL (19.9-100)
[2025-10-22] MEDS: DOXYCYCLINE IV 100 MG in SODIUM CHLORIDE 0.9% IV 100 ML IVPB ×2 (08:58→20:26)
[2025-10-22] MEDS: PANTOPRAZOLE SODIUM IV 40 MG VIAL IV PUSH (08:59)
[2025-10-22] MEDS: MINERAL OIL/WHITE PETROLATUM OINTMENT 1 APPLIC EACH EYE ×2 (08:59→20:25)
[2025-10-22] MEDS: PRAVASTATIN SODIUM 20 MG TABLET 40 MG BY MOUTH (08:59)
[2025-10-22] MEDS: NOREPINEPHRINE 8 MG/D5W 250 ML 8 MG/250 ML BAG 9.38 MG IV CONT (09:00)
[2025-10-22] MEDS: FUROSEMIDE INJ 100 MG/10 ML VIAL 80 MG IV PUSH (09:12)
--- NOTE | 2025-10-22 09:46 | WPDINTPN2 ---
Assessment and Plan Assessment and Plan (1) Acute respiratory failure: Code(s): J96.00 - Acute respiratory failure, unspecified whether with hypoxia or hypercapnia Status: Acute Assessment and Plan: Acute hypoxic respiratory failure -multifactorial secondary to ARDS suspected secondary to chemotherapy, pulmonary embolism, patient may have a component of pulmonary edema and infectious pneumonia -recently treated for pneumonia as outpatient. 10/16: Chest CTA MPRESSION: 1. Pulmonary emboli in subsegmental pulmonary arteries in the bilateral basilar lower lobes with relatively low clot burden and without evident right heart strain. Dr. French discussed these findings with Dr. Guadalupe at 4:40 PM. 2. Diffuse bilateral lung disease suspicious for atypical pneumonia with appearance similar to COVID pneumonia as manifest during the early stages of the pandemic. 3. Small amount of pneumomediastinum of indeterminate origin -10/17: chest x-ray this morning showed mild worsening of diffuse severe pneumonitis 10/18: Patient successfully intubated, -continue bronchodilators and Pulmicort 10/18: Discussed with Dr. Yasir Gonzalez oncologist at [place] who was her oncologist and treating of further breast cancer with Verzenio and anastrozole. He stated that Verzenio can cause pneumonitis in the have been case reports. Patient was started on steroids 10/19: Thick secretions, added Mucomyst with DuoNeb. Patient also has bouts of coughing, added guaifenesin per tube. Continue steroids for pneumonitis/ARDS 10/20: Patient on propofol infusion, opens her eyes, is coughing, tachypneic, dyssynchronous. I have asked the bedside RN to start fentanyl and Versed infusion and maintain RASS of -2. Repeat gases improving. CRP improving 10/21: bronchoscopy performed by Dr. Loomis, post bronchoscopy increased subcutaneous emphysema. Surgery was been consulted. Case discussed with thoracic surgery at [facility]. No surgical indication as per general surgeon. Continue supportive care and medical management. Case was discussed with a infectious Disease, vancomycin discontinued.- continue meropenem, doxycycline. Infectious Disease also added trimethoprim/sulfamethoxazole for him. PJP coverage Given patient's PF ratio is 84, patient was placed in prone positionand pt was paralysed Nimbex 10/21/2025: CT chest without contrast 1. Severe pneumomediastinum with air tracking cephalad into the neck soft tissues resulting in extensive subcutaneous emphysema in the neck, and lies right-sided chest wall. 2. Multifocal consolidative changes and trace bilateral pleural effusions with overall worse appearance compared to October 16 exam. 3. Other findings as above. He imaging vent settings reviewed. All cultures infectious disease studies are either negative or pending. PJP smear is pending I will change steroid dose to Solu-Medrol 40 mg IV q.12 hours foreign ARDS dosing this will also cover for PJP until smear is back Continue doxycycline, meropenem and back Start diuretics Place patient in supine position and see how she does (2) Pneumonia: Code(s): J18.9 - Pneumonia, unspecified organism Status: Acute Assessment and Plan: As above (3) Pulmonary embolism: Code(s): I26.99 - Other pulmonary embolism without acute cor pulmonale Status: Acute Assessment and Plan: Continue heparin infusion, CTA PE protocol showed subsegmental pulmonary embolism in the bibasal lower lobes with low clot burden and without evidence of right heart strain. Check lower extremity Dopplers to rule out DVT (4) Breast cancer: Code(s): C50.919 - Malignant neoplasm of unspecified site of unspecified female breast Status: Acute Assessment and Plan: Patient with breast cancer takes Verzenio, anastrozole, currently on hold, oncologist also agreed with holding these medications (5) Hx of supraventricular tachycardia: Code(s): Z86.79 - Personal history of other diseases of the circulatory system Status: Acute Assessment and Plan: Patient on Coreg, currently on hold due to hypotension. Heart rates are stable, regular rate and rhythm -continue to monitor (6) Hyperlipidemia: Code(s): E78.5 - Hyperlipidemia, unspecified Status: Acute Assessment and Plan: Continue pravastatin (7) Pneumomediastinum: Code(s): J98.2 - Interstitial emphysema Status: Acute Assessment and Plan: Likely related to coughing, positive-pressure ventilation, ARDS, bronchoscopy Dr. Montaño spoke to thoracic surgery at [facility] who recommended no surgical intervention at this time. Continue conservative management. Will try to keep peep as low as we can considering the current situation (8) Hypotension: Code(s): I95.9 - Hypotension, unspecified Status: Acute Assessment and Plan: Likely secondary to heavy sedation. Will discuss recent propofol. Start Levophed. Diuretics. Plan DVT prophylaxis: Heparin infusion Stress ulcer prophylaxis: Protonix (patient does take omeprazole at home) Nutrition: Resume tube feeds at a low rate 10/18: PICC line inserted Case discussed with Pulmonary Dr. Loomis Discussed with updated patient's son at bedside and answered all his questions. I explained him that patient was not accepted by [facility] yesterday. I explained him that I am willing to give them a call again for transfer if they want patient to be transferred to [facility]. Patient's son does not want transfer this time and would like to think more about it. Code Status: Full code. Prognosis is guarded with high risk of mortality Critical Care Time Spent: 32 minutes Due to a high probability of clinically significant, life threatening deterioration, the patient required my highest level of preparedness to intervene emergently and I personally spent this critical care time directly and personally managing the patient. This critical care time included obtaining a history; examining the patient; pulse oximetry; ordering and review of studies; arranging urgent treatment with development of a management plan; evaluation of patient's response to treatment; frequent reassessment; and discussions with other providers. It was exclusive of separately billable procedures and treating other patients and teaching time. Please see Assessment and Plan section and the rest of the note for further information on patient assessment and treatment This dictation may have been done utilizing a voice recognition system. Attempts have been made to correct errors. However, there may be uncorrected grammatical, spelling, and recognitions errors present. Subjective Date/time seen: 10/22/25 Overnight events reviewed. Afebrile Continues to be on mechanical ventilation 10 of PEEP and 65% FiO2 Off vasopressor Continues to be sedated with Versed propofol fentanyl and paralyzed with Nimbex infusion Urine output adequate Other Vitals acceptable NPO Patient was placed in prone position overnight Interval history: Reason for consult: Acute respiratory failure, pneumonia/pneumonitis, pulmonary embolism, presented to the ED on 10/16/2025 with complaints of cough, shortness of breath 10/18: Intubated Review of Systems Review of Systems: ROS unobtainable: Yes unobtainable due to endotracheal tube, unobtainable due to medical condition and unobtainable due to mental status Exam Narrative: General: Intubated on sedation, and chemical paralysis HEENT:? Pupils equal and reactive, sclera is clear Neck:? subcutaneous emphysema with crepitation Respiratory:? Coarse breath sounds diffusely, no wheezing, decreased at bases Cardiac:? S1-S2 is normal, regular rate and rhythm Abdomen:? Soft, nontender, nondistended, hypoactive bowel sounds Extremities:? Pitting edema bilateral lower extremities Neuro:? Intubated, sedated and chemically paralyzed, PERRL Skin:? No skin lesions noted Psych:? Unable to assess at this time Objective Data Vital Signs Vital Signs: Vital Signs - 24 hr 10/21/25 10:00 10/21/25 10:00 10/21/25 10:00 Temperature 37.3 C Pulse Rate 114 H 104 H Respiratory Rate 18 Blood Pressure 111/65 Pulse Oximetry 99 Oxygen Delivery Fraction of Inspired Oxygen 65 10/21/25 10:00 10/21/25 10:00 10/21/25 10:00 Temperature Pulse Rate 114 H 114 H 114 H Respiratory Rate 18 18 18 Blood Pressure Pulse Oximetry Oxygen Delivery Fraction of Inspired Oxygen 10/21/25 10:35 10/21/25 10:40 10/21/25 11:00 Temperature 37.2 C Pulse Rate 110 H 110 H 108 H Respiratory Rate 18 18 19 Blood Pressure 109/64 Pulse Oximetry 98 Oxygen Delivery Fraction of Inspired Oxygen 10/21/25 12:00 10/21/25 12:00 10/21/25 12:00 Temperature 37.2 C Pulse Rate 99 95 Respiratory Rate 25 H Blood Pressure 102/65 Pulse Oximetry 100 100 100 Oxygen Delivery Mechanical Ventilation Mechanical Ventilation Fraction of Inspired Oxygen 100 90 10/21/25 12:00 10/21/25 12:00 10/21/25 12:00 Temperature Pulse Rate 99 96 96 Respiratory Rate 25 H 25 H Blood Pressure Pulse Oximetry Oxygen Delivery Fraction of Inspired Oxygen 10/21/25 12:00 10/21/25 13:19 10/21/25 14:00 Temperature Pulse Rate 96 99 110 H Respiratory Rate 25 H 22 H Blood Pressure 103/59 L Pulse Oximetry Oxygen Delivery Fraction of Inspired Oxygen 10/21/25 14:00 10/21/25 14:00 10/21/25 14:00 Temperature Pulse Rate 103 H 103 H 103 H Respiratory Rate 18 18 18 Blood Pressure Pulse Oximetry Oxygen Delivery Fraction of Inspired Oxygen 10/21/25 14:00 10/21/25 15:00 10/21/25 15:00 Temperature 37.1 C Pulse Rate 103 H 106 H 99 Respiratory Rate 18 19 Blood Pressure 101/63 99/70 L Pulse Oximetry 100 100 Oxygen Delivery Mechanical Ventilation Fraction of Inspired Oxygen 100 10/21/25 15:00 10/21/25 15:00 10/21/25 15:05 Temperature Pulse Rate 110 H 111 H 106 H Respiratory Rate 18 17 Blood Pressure Pulse Oximetry Oxygen Delivery Fraction of Inspired Oxygen 100 100 10/21/25 15:06 10/21/25 15:15 10/21/25 15:31 Temperature Pulse Rate 106 H 107 H 109 H Respiratory Rate 17 19 19 Blood Pressure Pulse Oximetry Oxygen Delivery Fraction of Inspired Oxygen 10/21/25 16:00 10/21/25 16:00 10/21/25 16:00 Temperature Pulse Rate 112 H Respiratory Rate Blood Pressure Pulse Oximetry 100 Oxygen Delivery Mechanical Ventilation Fraction of Inspired Oxygen 100 65 10/21/25 16:00 10/21/25 16:00 10/21/25 16:00 Temperature 37.1 C 37.1 C Pulse Rate 110 H 110 H 111 H Respiratory Rate 19 19 19 Blood Pressure 103/71 103/71 Pulse Oximetry 100 100 Oxygen Delivery Fraction of Inspired Oxygen 10/21/25 16:00 10/21/25 16:00 10/21/25 16:00 Temperature Pulse Rate 111 H 111 H 111 H Respiratory Rate 19 19 19 Blood Pressure 103/71 Pulse Oximetry Oxygen Delivery Fraction of Inspired Oxygen 10/21/25 17:00 10/21/25 17:00 10/21/25 17:24 Temperature 37.1 C 37.1 C Pulse Rate 113 H 113 H 117 H Respiratory Rate 20 20 19 Blood Pressure 101/71 101/71 110/70 Pulse Oximetry 100 100 Oxygen Delivery Fraction of Inspired Oxygen 10/21/25 17:30 10/21/25 17:40 10/21/25 18:00 Temperature Pulse Rate 89 117 H 104 H Respiratory Rate 19 Blood Pressure 103/71 Pulse Oximetry 98 Oxygen Delivery Mechanical Ventilation Fraction of Inspired Oxygen 65 96 10/21/25 18:00 10/21/25 18:00 10/21/25 18:00 Temperature 37.1 C Pulse Rate 111 H 115 H 115 H Respiratory Rate 20 20 Blood Pressure 112/73 Pulse Oximetry 95 Oxygen Delivery Fraction of Inspired Oxygen 10/21/25 18:00 10/21/25 18:00 10/21/25 18:00 Temperature 37.1 C Pulse Rate 115 H 115 H 115 H Respiratory Rate 20 20 20 Blood Pressure 112/73 Pulse Oximetry 95 Oxygen Delivery Fraction of Inspired Oxygen 10/21/25 18:00 10/21/25 18:46 10/21/25 18:46 Temperature Pulse Rate 115 H 118 H 118 H Respiratory Rate 20 19 19 Blood Pressure 112/73 Pulse Oximetry Oxygen Delivery Fraction of Inspired Oxygen 10/21/25 19:00 10/21/25 19:00 10/21/25 19:12 Temperature 37.0 C 37.0 C Pulse Rate 110 H 110 H 111 H Respiratory Rate 19 Blood Pressure 103/72 103/72 107/72 Pulse Oximetry 97 97 Oxygen Delivery Fraction of Inspired Oxygen 10/21/25 19:54 10/21/25 19:56 10/21/25 19:56 Temperature Pulse Rate 105 H 104 H 103 H Respiratory Rate 26 H 25 H 26 H Blood Pressure 100/66 Pulse Oximetry Oxygen Delivery Fraction of Inspired Oxygen 10/21/25 20:00 10/21/25 20:00 10/21/25 20:00 Temperature 37.1 C Pulse Rate 102 H 102 H 104 H Respiratory Rate 23 H 25 H 24 H Blood Pressure 103/71 Pulse Oximetry 96 Oxygen Delivery Fraction of Inspired Oxygen 10/21/25 20:00 10/21/25 20:00 10/21/25 20:15 Temperature Pulse Rate 103 H 105 H Respiratory Rate 24 H Blood Pressure Pulse Oximetry Oxygen Delivery Fraction of Inspired Oxygen 96 10/21/25 20:18 10/21/25 20:20 10/21/25 20:25 Temperature Pulse Rate 105 H 98 98 Respiratory Rate 25 H 20 20 Blood Pressure 99/67 L Pulse Oximetry 96 96 Oxygen Delivery Mechanical Ventilation Fraction of Inspired Oxygen 65 65 10/21/25 20:33 10/21/25 20:33 10/21/25 20:33 Temperature Pulse Rate 105 H 101 H 101 H Respiratory Rate 26 H 19 Blood Pressure 98/70 L Pulse Oximetry 100 Oxygen Delivery Mechanical Ventilation Fraction of Inspired Oxygen 65 10/21/25 20:40 10/21/25 21:00 10/21/25 21:00 Temperature 37.0 C Pulse Rate 102 H 104 H 104 H Respiratory Rate 19 21 H 24 H Blood Pressure 96/68 L 98/68 L Pulse Oximetry 98 Oxygen Delivery Fraction of Inspired Oxygen 10/21/25 21:00 10/21/25 21:15 10/21/25 21:30 Temperature Pulse Rate 105 H 106 H 104 H Respiratory Rate 25 H 26 H 26 H Blood Pressure 99/64 L Pulse Oximetry Oxygen Delivery Fraction of Inspired Oxygen 10/21/25 21:32 10/21/25 21:47 10/21/25 22:00 Temperature Pulse Rate 107 H 103 H 100 Respiratory Rate 25 H 24 H Blood Pressure 98/72 L 102/71 Pulse Oximetry 94 Oxygen Delivery Fraction of Inspired Oxygen 65 10/21/25 22:00 10/21/25 22:00 10/21/25 22:00 Temperature 36.9 C Pulse Rate 100 103 H 103 H Respiratory Rate 21 H 21 H Blood Pressure 103/67 Pulse Oximetry 94 Oxygen Delivery Fraction of Inspired Oxygen 10/21/25 22:00 10/21/25 22:00 10/21/25 22:04 Temperature Pulse Rate 103 H 100 103 H Respiratory Rate 21 H 25 H 21 H Blood Pressure 103/67 Pulse Oximetry Oxygen Delivery Fraction of Inspired Oxygen 10/21/25 22:15 10/21/25 22:17 10/21/25 22:25 Temperature Pulse Rate 99 103 H 100 Respiratory Rate 26 H 26 H 23 H Blood Pressure 100/68 Pulse Oximetry Oxygen Delivery Fraction of Inspired Oxygen 10/21/25 22:25 10/21/25 22:26 10/21/25 22:26 Temperature Pulse Rate 100 104 H 104 H Respiratory Rate 23 H 24 H 24 H Blood Pressure Pulse Oximetry Oxygen Delivery Fraction of Inspired Oxygen 10/21/25 22:30 10/21/25 22:45 10/21/25 23:00 Temperature Pulse Rate 105 H 101 H 100 Respiratory Rate 25 H 24 H 25 H Blood Pressure 101/64 100/56 L 97/64 L Pulse Oximetry Oxygen Delivery Fraction of Inspired Oxygen 10/21/25 23:00 10/21/25 23:10 10/21/25 23:15 Temperature 36.9 C Pulse Rate 100 101 H 102 H Respiratory Rate 21 H 21 H Blood Pressure 97/64 L 97/63 L Pulse Oximetry 93 100 Oxygen Delivery Mechanical Ventilation Fraction of Inspired Oxygen 65 10/21/25 23:30 10/21/25 23:45 10/22/25 00:00 Temperature 36.8 C Pulse Rate 103 H 107 H 105 H Respiratory Rate 23 H 21 H 20 Blood Pressure 102/61 94/64 L 93/66 L Pulse Oximetry 95 Oxygen Delivery Fraction of Inspired Oxygen 10/22/25 00:00 10/22/25 00:00 10/22/25 00:00 Temperature Pulse Rate 105 H 105 H 104 H Respiratory Rate 20 20 20 Blood Pressure 93/66 L Pulse Oximetry Oxygen Delivery Fraction of Inspired Oxygen 10/22/25 00:00 10/22/25 00:00 10/22/25 00:00 Temperature Pulse Rate 102 H 100 Respiratory Rate 20 20 Blood Pressure Pulse Oximetry 96 96 Oxygen Delivery Mechanical Ventilation Fraction of Inspired Oxygen 65 65 65 10/22/25 00:00 10/22/25 00:00 10/22/25 00:36 Temperature Pulse Rate 105 H 105 H 103 H Respiratory Rate 22 H 20 Blood Pressure 90/66 L Pulse Oximetry Oxygen Delivery Fraction of Inspired Oxygen 10/22/25 00:36 10/22/25 01:00 10/22/25 02:00 Temperature 36.8 C Pulse Rate 103 H 102 H 95 Respiratory Rate 20 20 22 H Blood Pressure 90/66 L 90/61 L Pulse Oximetry 96 95 Oxygen Delivery Fraction of Inspired Oxygen 65 10/22/25 02:00 10/22/25 02:00 10/22/25 02:00 Temperature 36.7 C Pulse Rate 95 96 95 Respiratory Rate 22 H 22 H Blood Pressure 90/61 L Pulse Oximetry 95 Oxygen Delivery Fraction of Inspired Oxygen 10/22/25 02:00 10/22/25 02:00 10/22/25 02:00 Temperature Pulse Rate 95 95 95 Respiratory Rate 22 H 22 H 22 H Blood Pressure 90/61 L Pulse Oximetry Oxygen Delivery Fraction of Inspired Oxygen 10/22/25 02:26 10/22/25 02:26 10/22/25 02:32 Temperature Pulse Rate 94 94 95 Respiratory Rate 19 18 Blood Pressure Pulse Oximetry 100 Oxygen Delivery Mechanical Ventilation Fraction of Inspired Oxygen 65 10/22/25 02:51 10/22/25 02:56 10/22/25 03:00 Temperature 36.7 C Pulse Rate 99 90 100 Respiratory Rate 18 18 19 Blood Pressure 105/58 L Pulse Oximetry 96 Oxygen Delivery Fraction of Inspired Oxygen 10/22/25 03:45 10/22/25 03:55 10/22/25 04:00 Temperature 36.6 C Pulse Rate 98 97 98 Respiratory Rate 19 19 19 Blood Pressure 92/63 L Pulse Oximetry 95 95 95 Oxygen Delivery Mechanical Ventilation Fraction of Inspired Oxygen 65 65 10/22/25 04:00 10/22/25 04:00 10/22/25 04:00 Temperature Pulse Rate 95 95 Respiratory Rate 18 18 Blood Pressure Pulse Oximetry Oxygen Delivery Fraction of Inspired Oxygen 65 10/22/25 04:00 10/22/25 04:00 10/22/25 04:00 Temperature Pulse Rate 95 98 92 Respiratory Rate 18 18 Blood Pressure 92/63 L Pulse Oximetry Oxygen Delivery Fraction of Inspired Oxygen 10/22/25 04:26 10/22/25 05:00 10/22/25 05:00 Temperature 36.6 C Pulse Rate 96 96 95 Respiratory Rate 18 18 Blood Pressure 96/61 L Pulse Oximetry 95 96 Oxygen Delivery Mechanical Ventilation Fraction of Inspired Oxygen 65 10/22/25 05:33 10/22/25 05:33 10/22/25 06:00 Temperature Pulse Rate 95 95 95 Respiratory Rate 18 18 18 Blood Pressure 92/68 L 92/68 L Pulse Oximetry 97 Oxygen Delivery Fraction of Inspired Oxygen 65 10/22/25 06:00 10/22/25 06:00 10/22/25 06:00 Temperature 36.6 C Pulse Rate 95 95 93 Respiratory Rate 18 18 Blood Pressure 92/65 L Pulse Oximetry 96 Oxygen Delivery Fraction of Inspired Oxygen 10/22/25 06:00 10/22/25 06:00 10/22/25 06:00 Temperature Pulse Rate 95 93 93 Respiratory Rate 18 18 18 Blood Pressure 92/65 L Pulse Oximetry Oxygen Delivery Fraction of Inspired Oxygen 10/22/25 07:00 10/22/25 07:11 10/22/25 07:11 Temperature 36.5 C Pulse Rate 94 95 95 Respiratory Rate 19 18 18 Blood Pressure 94/60 L Pulse Oximetry 96 Oxygen Delivery Fraction of Inspired Oxygen 10/22/25 08:00 10/22/25 08:20 10/22/25 08:20 Temperature 36.5 C Pulse Rate 96 97 97 Respiratory Rate 23 H 19 24 H Blood Pressure 97/59 L 89/61 L Pulse Oximetry 96 Oxygen Delivery Fraction of Inspired Oxygen 10/22/25 08:35 10/22/25 08:44 10/22/25 08:45 Temperature Pulse Rate 95 95 95 Respiratory Rate 19 20 Blood Pressure Pulse Oximetry 96 Oxygen Delivery Mechanical Ventilation Fraction of Inspired Oxygen 65 10/22/25 08:51 10/22/25 08:52 10/22/25 09:00 Temperature Pulse Rate 100 100 93 Respiratory Rate 18 18 Blood Pressure 82/55 L Pulse Oximetry Oxygen Delivery Fraction of Inspired Oxygen 10/22/25 09:00 Temperature 36.5 C Pulse Rate 101 H Respiratory Rate 18 Blood Pressure 156/91 H Pulse Oximetry 99 Oxygen Delivery Fraction of Inspired Oxygen Intake/Output Intake/Output: Intake & Output 10/19/25 10/20/25 10/21/25 10/22/25 23:59 23:59 23:59 23:59 Intake Total 1706.0 2831.9 3455.6 834.6 Output Total 252 712 5662 1175 Balance 846.0 2031.9 2055.6 -340.4 Meds/Results Medications: Active Medications Generic Name Dose Route Start Last Admin Trade Name Freq PRN Reason Stop Dose Admin Acetaminophen 650 mg 10/16/25 19:07 Acetaminophen 325 Mg Tablet PO Q4H PRN Mild Pain (1-3) or Fever Albuterol/Ipratropium 3 ml 10/17/25 14:00 10/22/25 08:34 Ipratropium 0.5 Mg/Albuterol Sulfate 2.5 Mg (Base) Ampul.Neb 3 Ml INHALATION 3 ml Q6HRT [facility]ARK Administration Budesonide 0.5 mg 10/17/25 09:50 10/22/25 08:34 Budesonide Respule Neb 0.5 Mg/2 Ml Amp INHALATION 0.5 mg Q12HRT [facility]ARK Administration Dextrose 12.5 gm 10/19/25 07:37 Dextrose 50% 25 Gm/50 Ml Syringe IV PUSH PRN PRN Hypoglycemia Protocol Docusate Sodium 100 mg 10/17/25 09:00 Docusate Sodium 100 Mg Capsule PO On Hold: 10/17/25 09:00 Q12HR CLARK Glucagon 1 mg 10/19/25 07:37 Glucagon For Inj 1 Mg Vial IM PRN PRN Hypoglycemia Protocol Glucose 15 gm 10/19/25 07:37 Glucose Oral Gel 15 Gm Of Glucse In 37.5 Gm Tube PO PRN PRN Hypoglycemia Protocol Heparin Sodium (Porcine) 4,000 units 10/17/25 01:19 10/21/25 13:49 Heparin Sodium 5,000 Units/Ml Vial IV PUSH 4,000 units PRN PRN Administration aPTT less than 55 seconds Heparin Sodium (Porcine) 2,500 units 10/17/25 01:19 10/21/25 06:15 Heparin Sodium 5,000 Units/Ml Vial IV PUSH 2,500 units PRN PRN Administration aPTT 55 - 70 seconds Heparin Sodium/Dextrose 25,000 units in 250 mls @ 10 mls/hr 10/17/25 01:19 10/22/25 05:15 Heparin Sodium/D5w 100 Units/Ml IV CONT 1,000 units/hr .Q24H [facility] 10 mls/hr Protocol Titration 1,000 UNITS/HR Meropenem 1 gm/ Sodium 100 mls @ 200 mls/hr 10/17/25 18:00 10/22/25 05:36 Chloride IVPB Infused Q12H [facility] Infusion Doxycycline Hyclate 100 mg/ 100 mls @ 100 mls/hr 10/17/25 21:00 10/22/25 08:58 Sodium Chloride IVPB 100 mls/hr Q12H [facility] Administration Fentanyl Citrate 2,500 mcg in 250 mls @ 20 mls/hr 10/18/25 09:20 10/22/25 06:00 Fentanyl 2,500 Mcg/Ns 250 Ml IV CONT 200 mcg/hr .[id number] [facility] 20 mls/hr Protocol Titration 200 MCG/HR Midazolam HCl 100 mg in 100 mls @ 10 mls/hr 10/18/25 09:20 10/22/25 08:52 Versed 100 Mg/Ns 100 Ml IV CONT 10 mg/hr .Q10H [facility] 10 mls/hr Protocol Titration Dextrose 1,000 mls @ 100 mls/hr 10/19/25 07:37 Dextrose 5% 1,000 Ml IVPB PRN PRN Hypoglycemia Protocol Propofol 100 mls @ 11.325 mls/hr 10/19/25 10:25 10/22/25 08:51 Diprivan IV CONT 25 mcg/kg/min .Q8H50M [facility] 11.33 mls/hr Protocol Titration 25 MCG/KG/MIN Cisatracurium Besylate 200 mg/ 100 mls @ 22.65 mls/hr 10/21/25 13:00 10/22/25 08:20 Sodium Chloride IV CONT 10 mcg/kg/min .Q4H25M [facility] 22.65 mls/hr Protocol Titration 10 MCG/KG/MIN Trimethoprim/Sulfamethoxazole 523.6 mls @ 261.8 mls/hr 10/21/25 14:00 10/22/25 06:11 23.6 ml/ Dextrose IVPB 261.8 mls/hr Q8H [facility] Administration Norepinephrine Bitartrate 8 mg in 250 mls @ 9.375 mls/hr 10/22/25 08:50 10/22/25 09:00 Levophed 8 Mg/D5w 250 Ml IV CONT 5 mcg/min .Q24H [facility] 9.38 mls/hr Protocol Administration 5 MCG/MIN Insulin Aspart 3 - 6 units 10/19/25 12:00 10/22/25 05:36 Insulin Aspart (*Bkc) 100 Units/Ml SUB-Q Not Given Q6HR [facility] Protocol Levothyroxine Sodium 50 mcg 10/17/25 06:30 10/22/25 05:36 Levothyroxine Sodium 50 Mcg Tablet PO 50 mcg DAILY@0630 [facility] Administration Methylprednisolone Sodium Succinate 60 mg 10/19/25 08:00 10/22/25 08:59 Methylprednisolone Sod Succ 125 Mg Vial IV PUSH 60 mg Q6H [facility] Administration Midazolam HCl 4 mg 10/22/25 08:21 Midazolam Hcl (*Crx) 2 Mg/2 Ml Vial IV PUSH Q1H PRN Agitation while on ventilator Multi-Ingred Cream/Lotion/Oil/Oint 1 applic 10/18/25 21:00 10/22/25 08:59 Mineral Oil/White Petrolatum Ointment EACH EYE 1 applic Q12HR [facility] Administration Ondansetron HCl 4 mg 10/17/25 07:51 10/18/25 06:55 Ondansetron Inj 4 Mg/2 Ml Vial IV PUSH 4 mg Q6H PRN Administration Nausea And Vomiting Pantoprazole Sodium 40 mg 10/18/25 09:00 10/22/25 08:59 Pantoprazole Sodium Iv 40 Mg Vial IV PUSH 40 mg QAM [facility] Administration Pravastatin Sodium 40 mg 10/16/25 19:05 10/22/25 08:59 Pravastatin Sodium 20 Mg Tablet BY MOUTH 40 mg DAILY [facility] Administration Sodium Chloride 10 ml 10/18/25 14:00 10/22/25 05:02 Central Line Flush IV PUSH 10 ml Q8HR [facility] Administration Sodium Chloride 10 ml 10/18/25 10:10 Central Line Flush IV PUSH PRN PRN with TPN bag changes Sodium Chloride 20 ml 10/18/25 10:10 10/20/25 05:27 Central Line Flush IV PUSH 20 ml PRN PRN Administration after blood draws Radiology Results: ITS Impressions Chest CTA 10/16/25 16:25 IMPRESSION: 1. Pulmonary emboli in subsegmental pulmonary arteries in the bilateral basilar lower lobes with relatively low clot burden and without evident right heart strain. Dr. French discussed these findings with Dr. Guadalupe at 4:40 PM. 2. Diffuse bilateral lung disease suspicious for atypical pneumonia with appearance similar to COVID pneumonia as manifest during the early stages of the pandemic. 3. Small amount of pneumomediastinum of indeterminate origin. Chest X-Ray 10/21/25 12:36 Impression: Bilateral pneumonia. Large amount of subcutaneous air. Evaluation for pneumothorax or pneumomediastinum is limited. CT suggested to assess as clinically one Chest CT 10/21/25 14:20 IMPRESSION: 1. Severe pneumomediastinum with air tracking cephalad into the neck soft tissues resulting in extensive subcutaneous emphysema in the neck, and lies right-sided chest wall. 2. Multifocal consolidative changes and trace bilateral pleural effusions with overall worse appearance compared to October 16 exam. 3. Other findings as above. Labs Labs: Laboratory Results - last 24 hr 10/20/25 10/21/25 10/21/25 04:26 12:05 12:25 WBC RBC Hgb Hct MCV MCH MCHC RDW Plt Count MPV Immature Gran % (Auto) Neut % (Auto) Lymph % (Auto) [place] % (Auto) Eos % (Auto) Baso % (Auto) Lymph # (Auto) [place] # (Auto) Eos # (Auto) Baso # (Auto) Abs Immat Gran (auto) Absolute Neuts (auto) Absolute Nucleated RBC Band Neutrophils % Nucleated RBC % Platelet Estimate % Immature Plt Fraction Hypochromasia Anisocytosis Ovalocytes Schistocytes APTT 27.1 Puncture Site ABG pH ABG pCO2 ABG pO2 ABG PO2/FiO2 Ratio ABG HCO3 ABG O2 Saturation Not Reportable ABG O2 Content ABG Base Excess A-a Gradient Oxyhemoglobin Not Reportable Carboxyhemoglobin Methemoglobin Reduced Hemoglobin Total Hemoglobin O2 Delivery Device O2 Liters/Min Minute Volume Not Reportable Vent Rate 18 Vent Mode Cmv FiO2 Tidal Volume 350 PEEP 10 Peak Inspir Pressure Not Reportable Pressure Support Not Reportable Sodium Potassium Chloride Carbon Dioxide Anion Gap BUN Creatinine Estim Creat Clear Calc Estimated GFR Glucose POC Capillary Glucose 135 H Calcium Phosphorus Magnesium Total Bilirubin AST ALT Alkaline Phosphatase NT-Pro-B Natriuret Pep Total Protein Albumin Bronch Specimen Source Bronchial lavage Bronchial Fluid Color Red Bronchial Fluid Appearance Cloudy Bronchial Neutrophils 47 Bronchial Lymphocytes 48 Bronchial Monocytes 2 Bronchial Eosinophils 0 Bronchial Macrophages 3 Bronchial Other Cells 0 C. pneumoniae DNA (PCR) Cancelled Chlamydia DNA Source Cancelled HSV I DNA PCR Cancelled HSV II DNA PCR Cancelled Pneumocystis carinii Ag Cancelled Resp Viral Panel Intrp Cancelled Viral Specimen Source Cancelled 10/21/25 10/21/25 10/21/25 18:27 19:51 23:37 WBC RBC Hgb Hct MCV MCH MCHC RDW Plt Count MPV Immature Gran % (Auto) Neut % (Auto) Lymph % (Auto) [place] % (Auto) Eos % (Auto) Baso % (Auto) Lymph # (Auto) [place] # (Auto) Eos # (Auto) Baso # (Auto) Abs Immat Gran (auto) Absolute Neuts (auto) Absolute Nucleated RBC Band Neutrophils % Nucleated RBC % Platelet Estimate % Immature Plt Fraction Hypochromasia Anisocytosis Ovalocytes Schistocytes APTT > 200.0 H* Puncture Site ABG pH ABG pCO2 ABG pO2 ABG PO2/FiO2 Ratio ABG HCO3 ABG O2 Saturation ABG O2 Content ABG Base Excess A-a Gradient Oxyhemoglobin Carboxyhemoglobin Methemoglobin Reduced Hemoglobin Total Hemoglobin O2 Delivery Device O2 Liters/Min Minute Volume Vent Rate Vent Mode FiO2 Tidal Volume PEEP Peak Inspir Pressure Pressure Support Sodium Potassium Chloride Carbon Dioxide Anion Gap BUN Creatinine Estim Creat Clear Calc Estimated GFR Glucose POC Capillary Glucose 163 H 142 H Calcium Phosphorus Magnesium Total Bilirubin AST ALT Alkaline Phosphatase NT-Pro-B Natriuret Pep Total Protein Albumin Bronch Specimen Source Bronchial Fluid Color Bronchial Fluid Appearance Bronchial Neutrophils Bronchial Lymphocytes Bronchial Monocytes Bronchial Eosinophils Bronchial Macrophages Bronchial Other Cells C. pneumoniae DNA (PCR) Chlamydia DNA Source HSV I DNA PCR HSV II DNA PCR Pneumocystis carinii Ag Resp Viral Panel Intrp Viral Specimen Source 10/22/25 10/22/25 03:54 04:29 WBC 6.6 RBC 2.23 L Hgb 9.1 L Hct 25.7 L MCV 115.2 H MCH 40.8 H MCHC 35.4 RDW 15.0 H Plt Count 113 L MPV 10.3 Immature Gran % (Auto) 1.8 H Neut % (Auto) 85.0 H Lymph % (Auto) 5.2 L Waller % (Auto) 7.8 Eos % (Auto) 0.0 Baso % (Auto) 0.2 Lymph # (Auto) 0.34 L [place] # (Auto) 0.5 Eos # (Auto) 0.0 Baso # (Auto) 0.0 Abs Immat Gran (auto) 0.12 H Absolute Neuts (auto) 5.6 Absolute Nucleated RBC 0.050 H Band Neutrophils % Not Reportable Nucleated RBC % 0.8 H Platelet Estimate Decreased % Immature Plt Fraction 4.0 Hypochromasia 1+ Anisocytosis 1+ Ovalocytes Occasional Schistocytes None seen APTT 126.7 H Puncture Site Right radial ABG pH 7.422 ABG pCO2 47.3 H ABG pO2 74.1 L ABG PO2/FiO2 Ratio 1.14 ABG HCO3 30.1 H ABG O2 Saturation 95.0 ABG O2 Content 13.1 L ABG Base Excess 5.0 A-a Gradient 337.9 Oxyhemoglobin 93.6 Carboxyhemoglobin 0.9 Methemoglobin 0.3 Reduced Hemoglobin 5.2 H Total Hemoglobin 9.9 L O2 Delivery Device Ventilator O2 Liters/Min Not Reportable Minute Volume Not Reportable Vent Rate 18 Vent Mode Cmv FiO2 65 Tidal Volume 350 PEEP 10 Peak Inspir Pressure Not Reportable Pressure Support Not Reportable Sodium 132 L Potassium 3.9 Chloride 101 Carbon Dioxide 34 H Anion Gap -3 L BUN 14 Creatinine 0.57 L Estim Creat Clear Calc 86 Estimated GFR > 60 Glucose 121 H POC Capillary Glucose Calcium 7.4 L Phosphorus 2.8 Magnesium 2.5 H Total Bilirubin 0.3 AST 27 ALT 47 H Alkaline Phosphatase 179 H NT-Pro-B Natriuret Pep 391 H Total Protein 4.8 L Albumin 2.4 L Bronch Specimen Source Bronchial Fluid Color Bronchial Fluid Appearance Bronchial Neutrophils Bronchial Lymphocytes Bronchial Monocytes Bronchial Eosinophils Bronchial Macrophages Bronchial Other Cells C. pneumoniae DNA (PCR) Chlamydia DNA Source HSV I DNA PCR HSV II DNA PCR Pneumocystis carinii Ag Resp Viral Panel Intrp Viral Specimen Source Quality VTE Prophylaxis VTE prophylaxis: pharmacologic ordered
[2025-10-22 10:10] LABS: NT Pro B Type Natriuretic Pept 324 pg/mL (19.9-100)
[2025-10-22] MEDS: CISATRACURIUM BESYLATE 200 MG in SODIUM CHLORIDE 0.9% IV 80 ML 22.65 ML IV CONT ×3 (10:10→18:46)
--- NOTE | 2025-10-22 10:35 | WPDINFPN2 ---
Progress Note: A&P Assessment and Plan (1) Bilateral pneumonia: Code(s): J18.9 - Pneumonia, unspecified organism Status: Acute Plan ASSESSMENT: 1. pneumonia/pneumonitis; r/o infectious etiology vs medication related 2. acute respiratory failure; intubated; strep pneumo neg; legionella neg; MRSA nares neg; +pulmonary embolus 3. immunocompromised host 4. breast cancer 5. HTN, HL 6. 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 Chart, data and patient info reviewed. Patient was located at [facility] while I was in my [place] office. Subjective Date/time seen: 10/22/25 10:35 Interval history: no fever no leukocytosis remains in ICU on very little amount of pressor on sedation, nimbex and tube feeds Exam Narrative: on vent: FiO2=60 and PEEP=10 +ETT +OGT chest with creptus decreased BS picc LUE +sanabria with clear urine Objective Data Vital Signs Vital Signs: Vital Signs - 24 hr 10/21/25 10:40 10/21/25 11:00 10/21/25 12:00 Temperature 99.0 F Pulse Rate 110 H 108 H 99 Respiratory Rate 18 19 Blood Pressure 109/64 Pulse Oximetry 98 100 Oxygen Delivery Mechanical Ventilation Fraction of Inspired Oxygen 100 10/21/25 12:00 10/21/25 12:00 10/21/25 12:00 Temperature 98.9 F Pulse Rate 95 99 Respiratory Rate 25 H Blood Pressure 102/65 Pulse Oximetry 100 100 Oxygen Delivery Mechanical Ventilation Fraction of Inspired Oxygen 90 10/21/25 12:00 10/21/25 12:00 10/21/25 12:00 Temperature Pulse Rate 96 96 96 Respiratory Rate 25 H 25 H 25 H Blood Pressure Pulse Oximetry Oxygen Delivery Fraction of Inspired Oxygen 10/21/25 13:19 10/21/25 14:00 10/21/25 14:00 Temperature Pulse Rate 99 110 H 103 H Respiratory Rate 22 H 18 Blood Pressure 103/59 L Pulse Oximetry Oxygen Delivery Fraction of Inspired Oxygen 10/21/25 14:00 10/21/25 14:00 10/21/25 14:00 Temperature Pulse Rate 103 H 103 H 103 H Respiratory Rate 18 18 18 Blood Pressure 101/63 Pulse Oximetry Oxygen Delivery Fraction of Inspired Oxygen 10/21/25 15:00 10/21/25 15:00 10/21/25 15:00 Temperature 98.8 F Pulse Rate 106 H 99 110 H Respiratory Rate 19 18 Blood Pressure 99/70 L Pulse Oximetry 100 100 Oxygen Delivery Mechanical Ventilation Fraction of Inspired Oxygen 100 100 10/21/25 15:00 10/21/25 15:05 10/21/25 15:06 Temperature Pulse Rate 111 H 106 H 106 H Respiratory Rate 17 17 Blood Pressure Pulse Oximetry Oxygen Delivery Fraction of Inspired Oxygen 100 10/21/25 15:15 10/21/25 15:31 10/21/25 16:00 Temperature Pulse Rate 107 H 109 H 112 H Respiratory Rate 19 19 Blood Pressure Pulse Oximetry Oxygen Delivery Fraction of Inspired Oxygen 10/21/25 16:00 10/21/25 16:00 10/21/25 16:00 Temperature 98.8 F Pulse Rate 110 H Respiratory Rate 19 Blood Pressure 103/71 Pulse Oximetry 100 100 Oxygen Delivery Mechanical Ventilation Fraction of Inspired Oxygen 100 65 10/21/25 16:00 10/21/25 16:00 10/21/25 16:00 Temperature 98.8 F Pulse Rate 110 H 111 H 111 H Respiratory Rate 19 19 19 Blood Pressure 103/71 Pulse Oximetry 100 Oxygen Delivery Fraction of Inspired Oxygen 10/21/25 16:00 10/21/25 16:00 10/21/25 17:00 Temperature 98.7 F Pulse Rate 111 H 111 H 113 H Respiratory Rate 19 19 20 Blood Pressure 103/71 101/71 Pulse Oximetry 100 Oxygen Delivery Fraction of Inspired Oxygen 10/21/25 17:00 10/21/25 17:24 10/21/25 17:30 Temperature 98.7 F Pulse Rate 113 H 117 H 89 Respiratory Rate 20 19 Blood Pressure 101/71 110/70 Pulse Oximetry 100 98 Oxygen Delivery Mechanical Ventilation Fraction of Inspired Oxygen 65 10/21/25 17:40 10/21/25 18:00 10/21/25 18:00 Temperature Pulse Rate 117 H 104 H 111 H Respiratory Rate 19 Blood Pressure 103/71 Pulse Oximetry Oxygen Delivery Fraction of Inspired Oxygen 96 10/21/25 18:00 10/21/25 18:00 10/21/25 18:00 Temperature 98.7 F 98.7 F Pulse Rate 115 H 115 H 115 H Respiratory Rate 20 20 20 Blood Pressure 112/73 112/73 Pulse Oximetry 95 95 Oxygen Delivery Fraction of Inspired Oxygen 10/21/25 18:00 10/21/25 18:00 10/21/25 18:00 Temperature Pulse Rate 115 H 115 H 115 H Respiratory Rate 20 20 20 Blood Pressure 112/73 Pulse Oximetry Oxygen Delivery Fraction of Inspired Oxygen 10/21/25 18:46 10/21/25 18:46 10/21/25 19:00 Temperature 98.6 F Pulse Rate 118 H 118 H 110 H Respiratory Rate 19 19 Blood Pressure 103/72 Pulse Oximetry 97 Oxygen Delivery Fraction of Inspired Oxygen 10/21/25 19:00 10/21/25 19:12 10/21/25 19:54 Temperature 98.6 F Pulse Rate 110 H 111 H 105 H Respiratory Rate 19 26 H Blood Pressure 103/72 107/72 100/66 Pulse Oximetry 97 Oxygen Delivery Fraction of Inspired Oxygen 10/21/25 19:56 10/21/25 19:56 10/21/25 20:00 Temperature Pulse Rate 104 H 103 H 102 H Respiratory Rate 25 H 26 H 23 H Blood Pressure Pulse Oximetry Oxygen Delivery Fraction of Inspired Oxygen 10/21/25 20:00 10/21/25 20:00 10/21/25 20:00 Temperature 98.7 F Pulse Rate 102 H 104 H Respiratory Rate 25 H 24 H Blood Pressure 103/71 Pulse Oximetry 96 Oxygen Delivery Fraction of Inspired Oxygen 96 10/21/25 20:00 10/21/25 20:15 10/21/25 20:18 Temperature Pulse Rate 103 H 105 H 105 H Respiratory Rate 24 H 25 H Blood Pressure 99/67 L Pulse Oximetry Oxygen Delivery Fraction of Inspired Oxygen 10/21/25 20:20 10/21/25 20:25 10/21/25 20:33 Temperature Pulse Rate 98 98 105 H Respiratory Rate 20 20 26 H Blood Pressure 98/70 L Pulse Oximetry 96 96 Oxygen Delivery Mechanical Ventilation Fraction of Inspired Oxygen 65 65 10/21/25 20:33 10/21/25 20:33 10/21/25 20:40 Temperature Pulse Rate 101 H 101 H 102 H Respiratory Rate 19 19 Blood Pressure Pulse Oximetry 100 Oxygen Delivery Mechanical Ventilation Fraction of Inspired Oxygen 65 10/21/25 21:00 10/21/25 21:00 10/21/25 21:00 Temperature 98.6 F Pulse Rate 104 H 104 H 105 H Respiratory Rate 21 H 24 H 25 H Blood Pressure 96/68 L 98/68 L Pulse Oximetry 98 Oxygen Delivery Fraction of Inspired Oxygen 10/21/25 21:15 10/21/25 21:30 10/21/25 21:32 Temperature Pulse Rate 106 H 104 H 107 H Respiratory Rate 26 H 26 H 25 H Blood Pressure 99/64 L 98/72 L Pulse Oximetry Oxygen Delivery Fraction of Inspired Oxygen 10/21/25 21:47 10/21/25 22:00 10/21/25 22:00 Temperature Pulse Rate 103 H 100 100 Respiratory Rate 24 H Blood Pressure 102/71 Pulse Oximetry 94 Oxygen Delivery Fraction of Inspired Oxygen 65 10/21/25 22:00 10/21/25 22:00 10/21/25 22:00 Temperature 98.5 F Pulse Rate 103 H 103 H 103 H Respiratory Rate 21 H 21 H 21 H Blood Pressure 103/67 Pulse Oximetry 94 Oxygen Delivery Fraction of Inspired Oxygen 10/21/25 22:00 10/21/25 22:04 10/21/25 22:15 Temperature Pulse Rate 100 103 H 99 Respiratory Rate 25 H 21 H 26 H Blood Pressure 103/67 Pulse Oximetry Oxygen Delivery Fraction of Inspired Oxygen 10/21/25 22:17 10/21/25 22:25 10/21/25 22:25 Temperature Pulse Rate 103 H 100 100 Respiratory Rate 26 H 23 H 23 H Blood Pressure 100/68 Pulse Oximetry Oxygen Delivery Fraction of Inspired Oxygen 10/21/25 22:26 10/21/25 22:26 10/21/25 22:30 Temperature Pulse Rate 104 H 104 H 105 H Respiratory Rate 24 H 24 H 25 H Blood Pressure 101/64 Pulse Oximetry Oxygen Delivery Fraction of Inspired Oxygen 10/21/25 22:45 10/21/25 23:00 10/21/25 23:00 Temperature 98.4 F Pulse Rate 101 H 100 100 Respiratory Rate 24 H 25 H 21 H Blood Pressure 100/56 L 97/64 L 97/64 L Pulse Oximetry 93 Oxygen Delivery Fraction of Inspired Oxygen 10/21/25 23:10 10/21/25 23:15 10/21/25 23:30 Temperature Pulse Rate 101 H 102 H 103 H Respiratory Rate 21 H 23 H Blood Pressure 97/63 L 102/61 Pulse Oximetry 100 Oxygen Delivery Mechanical Ventilation Fraction of Inspired Oxygen 65 10/21/25 23:45 10/22/25 00:00 10/22/25 00:00 Temperature 98.2 F Pulse Rate 107 H 105 H 105 H Respiratory Rate 21 H 20 20 Blood Pressure 94/64 L 93/66 L Pulse Oximetry 95 Oxygen Delivery Fraction of Inspired Oxygen 10/22/25 00:00 10/22/25 00:00 10/22/25 00:00 Temperature Pulse Rate 105 H 104 H Respiratory Rate 20 20 Blood Pressure 93/66 L Pulse Oximetry Oxygen Delivery Fraction of Inspired Oxygen 65 10/22/25 00:00 10/22/25 00:00 10/22/25 00:00 Temperature Pulse Rate 102 H 100 105 H Respiratory Rate 20 20 Blood Pressure Pulse Oximetry 96 96 Oxygen Delivery Mechanical Ventilation Fraction of Inspired Oxygen 65 65 10/22/25 00:00 10/22/25 00:36 10/22/25 00:36 Temperature Pulse Rate 105 H 103 H 103 H Respiratory Rate 22 H 20 20 Blood Pressure 90/66 L 90/66 L Pulse Oximetry Oxygen Delivery Fraction of Inspired Oxygen 10/22/25 01:00 10/22/25 02:00 10/22/25 02:00 Temperature 98.2 F Pulse Rate 102 H 95 95 Respiratory Rate 20 22 H Blood Pressure 90/61 L Pulse Oximetry 96 95 Oxygen Delivery Fraction of Inspired Oxygen 65 10/22/25 02:00 10/22/25 02:00 10/22/25 02:00 Temperature 98.1 F Pulse Rate 96 95 95 Respiratory Rate 22 H 22 H 22 H Blood Pressure 90/61 L Pulse Oximetry 95 Oxygen Delivery Fraction of Inspired Oxygen 10/22/25 02:00 10/22/25 02:00 10/22/25 02:26 Temperature Pulse Rate 95 95 94 Respiratory Rate 22 H 22 H Blood Pressure 90/61 L Pulse Oximetry 100 Oxygen Delivery Mechanical Ventilation Fraction of Inspired Oxygen 65 10/22/25 02:26 10/22/25 02:32 10/22/25 02:51 Temperature Pulse Rate 94 95 99 Respiratory Rate 19 18 18 Blood Pressure Pulse Oximetry Oxygen Delivery Fraction of Inspired Oxygen 10/22/25 02:56 10/22/25 03:00 10/22/25 03:45 Temperature 98.0 F Pulse Rate 90 100 98 Respiratory Rate 18 19 19 Blood Pressure 105/58 L Pulse Oximetry 96 95 Oxygen Delivery Mechanical Ventilation Fraction of Inspired Oxygen 65 10/22/25 03:55 10/22/25 04:00 10/22/25 04:00 Temperature 97.9 F Pulse Rate 97 98 Respiratory Rate 19 19 Blood Pressure 92/63 L Pulse Oximetry 95 95 Oxygen Delivery Fraction of Inspired Oxygen 65 65 10/22/25 04:00 10/22/25 04:00 10/22/25 04:00 Temperature Pulse Rate 95 95 95 Respiratory Rate 18 18 18 Blood Pressure 92/63 L Pulse Oximetry Oxygen Delivery Fraction of Inspired Oxygen 10/22/25 04:00 10/22/25 04:00 10/22/25 04:26 Temperature Pulse Rate 98 92 96 Respiratory Rate 18 18 Blood Pressure Pulse Oximetry Oxygen Delivery Fraction of Inspired Oxygen 10/22/25 05:00 10/22/25 05:00 10/22/25 05:33 Temperature 97.8 F Pulse Rate 96 95 95 Respiratory Rate 18 18 Blood Pressure 96/61 L 92/68 L Pulse Oximetry 95 96 Oxygen Delivery Mechanical Ventilation Fraction of Inspired Oxygen 65 10/22/25 05:33 10/22/25 06:00 10/22/25 06:00 Temperature Pulse Rate 95 95 95 Respiratory Rate 18 18 Blood Pressure 92/68 L Pulse Oximetry 97 Oxygen Delivery Fraction of Inspired Oxygen 65 10/22/25 06:00 10/22/25 06:00 10/22/25 06:00 Temperature 97.8 F Pulse Rate 95 93 95 Respiratory Rate 18 18 18 Blood Pressure 92/65 L 92/65 L Pulse Oximetry 96 Oxygen Delivery Fraction of Inspired Oxygen 10/22/25 06:00 10/22/25 06:00 10/22/25 07:00 Temperature 97.7 F Pulse Rate 93 93 94 Respiratory Rate 18 18 19 Blood Pressure 94/60 L Pulse Oximetry 96 Oxygen Delivery Fraction of Inspired Oxygen 10/22/25 07:11 10/22/25 07:11 10/22/25 08:00 Temperature 97.7 F Pulse Rate 95 95 96 Respiratory Rate 18 18 23 H Blood Pressure 97/59 L Pulse Oximetry 96 Oxygen Delivery Fraction of Inspired Oxygen 10/22/25 08:20 10/22/25 08:20 10/22/25 08:35 Temperature Pulse Rate 97 97 95 Respiratory Rate 19 24 H 19 Blood Pressure 89/61 L Pulse Oximetry Oxygen Delivery Fraction of Inspired Oxygen 10/22/25 08:44 10/22/25 08:45 10/22/25 08:51 Temperature Pulse Rate 95 95 100 Respiratory Rate 20 18 Blood Pressure Pulse Oximetry 96 Oxygen Delivery Mechanical Ventilation Fraction of Inspired Oxygen 65 10/22/25 08:52 10/22/25 09:00 10/22/25 09:00 Temperature 97.7 F Pulse Rate 100 93 101 H Respiratory Rate 18 18 Blood Pressure 82/55 L 156/91 H Pulse Oximetry 99 Oxygen Delivery Fraction of Inspired Oxygen 10/22/25 10:00 10/22/25 10:10 10/22/25 10:10 Temperature 97.6 F Pulse Rate 104 H 104 H 104 H Respiratory Rate 18 18 18 Blood Pressure 110/69 110/69 110/69 Pulse Oximetry 98 Oxygen Delivery Fraction of Inspired Oxygen Intake/Output Intake/Output: Intake & Output 10/19/25 10/20/25 10/21/25 10/22/25 23:59 23:59 23:59 23:59 Intake Total 1706.0 2831.9 3455.6 876.1 Output Total 777 622 5106 1175 Balance 846.0 2031.9 2055.6 -298.9 Meds/Results Medications: Active Medications Generic Name Dose Route Start Last Admin Trade Name Freq PRN Reason Stop Dose Admin Acetaminophen 650 mg 10/16/25 19:07 Acetaminophen 325 Mg Tablet PO Q4H PRN Mild Pain (1-3) or Fever Albuterol/Ipratropium 3 ml 10/17/25 14:00 10/22/25 08:34 Ipratropium 0.5 Mg/Albuterol Sulfate 2.5 Mg (Base) Ampul.Neb 3 Ml INHALATION 3 ml Q6HRT CLARK Administration Budesonide 0.5 mg 10/17/25 09:50 10/22/25 08:34 Budesonide Respule Neb 0.5 Mg/2 Ml Amp INHALATION 0.5 mg Q12HRT CLARK Administration Dextrose 12.5 gm 10/19/25 07:37 Dextrose 50% 25 Gm/50 Ml Syringe IV PUSH PRN PRN Hypoglycemia Protocol Docusate Sodium 100 mg 10/17/25 09:00 Docusate Sodium 100 Mg Capsule PO On Hold: 10/17/25 09:00 Q12HR CLARK Glucagon 1 mg 10/19/25 07:37 Glucagon For Inj 1 Mg Vial IM PRN PRN Hypoglycemia Protocol Glucose 15 gm 10/19/25 07:37 Glucose Oral Gel 15 Gm Of Glucse In 37.5 Gm Tube PO PRN PRN Hypoglycemia Protocol Heparin Sodium (Porcine) 4,000 units 10/17/25 01:19 10/21/25 13:49 Heparin Sodium 5,000 Units/Ml Vial IV PUSH 4,000 units PRN PRN Administration aPTT less than 55 seconds Heparin Sodium (Porcine) 2,500 units 10/17/25 01:19 10/21/25 06:15 Heparin Sodium 5,000 Units/Ml Vial IV PUSH 2,500 units PRN PRN Administration aPTT 55 - 70 seconds Heparin Sodium/Dextrose 25,000 units in 250 mls @ 10 mls/hr 10/17/25 01:19 10/22/25 05:15 Heparin Sodium/D5w 100 Units/Ml IV CONT 1,000 units/hr .Q24H CLARK 10 mls/hr Protocol Titration 1,000 UNITS/HR Meropenem 1 gm/ Sodium 100 mls @ 200 mls/hr 10/17/25 18:00 10/22/25 05:36 Chloride IVPB Infused Q12H CLARK Infusion Doxycycline Hyclate 100 mg/ 100 mls @ 100 mls/hr 10/17/25 21:00 10/22/25 08:58 Sodium Chloride IVPB 100 mls/hr Q12H CLARK Administration Fentanyl Citrate 2,500 mcg in 250 mls @ 20 mls/hr 10/18/25 09:20 10/22/25 06:00 Fentanyl 2,500 Mcg/Ns 250 Ml IV CONT 200 mcg/hr .[id number] CLARK 20 mls/hr Protocol Titration 200 MCG/HR Midazolam HCl 100 mg in 100 mls @ 10 mls/hr 10/18/25 09:20 10/22/25 08:52 Versed 100 Mg/Ns 100 Ml IV CONT 10 mg/hr .Q10H CLARK 10 mls/hr Protocol Titration Dextrose 1,000 mls @ 100 mls/hr 10/19/25 07:37 Dextrose 5% 1,000 Ml IVPB PRN PRN Hypoglycemia Protocol Propofol 100 mls @ 11.325 mls/hr 10/19/25 10:25 10/22/25 08:51 Diprivan IV CONT 25 mcg/kg/min .Q8H50M CLARK 11.33 mls/hr Protocol Titration 25 MCG/KG/MIN Cisatracurium Besylate 200 mg/ 100 mls @ 22.65 mls/hr 10/21/25 13:00 10/22/25 10:10 Sodium Chloride IV CONT 10 mcg/kg/min .Q4H25M CLARK 22.65 mls/hr Protocol Administration 10 MCG/KG/MIN Trimethoprim/Sulfamethoxazole 523.6 mls @ 261.8 mls/hr 10/21/25 14:00 10/22/25 06:11 23.6 ml/ Dextrose IVPB 261.8 mls/hr Q8H CLARK Administration Norepinephrine Bitartrate 8 mg in 250 mls @ 9.375 mls/hr 10/22/25 08:50 10/22/25 09:00 Levophed 8 Mg/D5w 250 Ml IV CONT 5 mcg/min .Q24H CLARK 9.38 mls/hr Protocol Administration 5 MCG/MIN Insulin Aspart 3 - 6 units 10/19/25 12:00 10/22/25 05:36 Insulin Aspart (*Bkc) 100 Units/Ml SUB-Q Not Given Q6HR [facility] Protocol Levothyroxine Sodium 50 mcg 10/17/25 06:30 10/22/25 05:36 Levothyroxine Sodium 50 Mcg Tablet PO 50 mcg DAILY@0630 [facility] Administration Methylprednisolone Sodium Succinate 40 mg 10/22/25 21:00 Methylprednisolone Sod Succ 40 Mg Vial IV PUSH Q12H [facility] Midazolam HCl 4 mg 10/22/25 08:21 Midazolam Hcl (*Crx) 2 Mg/2 Ml Vial IV PUSH Q1H PRN Agitation while on ventilator Multi-Ingred Cream/Lotion/Oil/Oint 1 applic 10/18/25 21:00 10/22/25 08:59 Mineral Oil/White Petrolatum Ointment EACH EYE 1 applic Q12HR [facility] Administration Ondansetron HCl 4 mg 10/17/25 07:51 10/18/25 06:55 Ondansetron Inj 4 Mg/2 Ml Vial IV PUSH 4 mg Q6H PRN Administration Nausea And Vomiting Pantoprazole Sodium 40 mg 10/18/25 09:00 10/22/25 08:59 Pantoprazole Sodium Iv 40 Mg Vial IV PUSH 40 mg QAM [facility] Administration Pravastatin Sodium 40 mg 10/16/25 19:05 10/22/25 08:59 Pravastatin Sodium 20 Mg Tablet BY MOUTH 40 mg DAILY CLARK Administration Sodium Chloride 10 ml 10/18/25 14:00 10/22/25 05:02 Central Line Flush IV PUSH 10 ml Q8HR CLARK Administration Sodium Chloride 10 ml 10/18/25 10:10 Central Line Flush IV PUSH PRN PRN with TPN bag changes Sodium Chloride 20 ml 10/18/25 10:10 10/20/25 05:27 Central Line Flush IV PUSH 20 ml PRN PRN Administration after blood draws Radiology Results: ITS Impressions Chest CTA 10/16/25 16:25 IMPRESSION: 1. Pulmonary emboli in subsegmental pulmonary arteries in the bilateral basilar lower lobes with relatively low clot burden and without evident right heart strain. Dr. French discussed these findings with Dr. Guadalupe at 4:40 PM. 2. Diffuse bilateral lung disease suspicious for atypical pneumonia with appearance similar to COVID pneumonia as manifest during the early stages of the pandemic. 3. Small amount of pneumomediastinum of indeterminate origin. Chest X-Ray 10/21/25 12:36 Impression: Bilateral pneumonia. Large amount of subcutaneous air. Evaluation for pneumothorax or pneumomediastinum is limited. CT suggested to assess as clinically one Chest CT 10/21/25 14:20 IMPRESSION: 1. Severe pneumomediastinum with air tracking cephalad into the neck soft tissues resulting in extensive subcutaneous emphysema in the neck, and lies right-sided chest wall. 2. Multifocal consolidative changes and trace bilateral pleural effusions with overall worse appearance compared to October 16 exam. 3. Other findings as above. Labs Labs: Laboratory Results - last 24 hr 10/20/25 10/21/25 10/21/25 04:26 12:05 12:25 WBC RBC Hgb Hct MCV MCH MCHC RDW Plt Count MPV Immature Gran % (Auto) Neut % (Auto) Lymph % (Auto) [place] % (Auto) Eos % (Auto) Baso % (Auto) Lymph # (Auto) [place] # (Auto) Eos # (Auto) Baso # (Auto) Abs Immat Gran (auto) Absolute Neuts (auto) Absolute Nucleated RBC Band Neutrophils % Nucleated RBC % Platelet Estimate % Immature Plt Fraction Hypochromasia Anisocytosis Ovalocytes Schistocytes APTT 27.1 Puncture Site ABG pH ABG pCO2 ABG pO2 ABG PO2/FiO2 Ratio ABG HCO3 ABG O2 Saturation Not Reportable ABG O2 Content ABG Base Excess A-a Gradient Oxyhemoglobin Not Reportable Carboxyhemoglobin Methemoglobin Reduced Hemoglobin Total Hemoglobin O2 Delivery Device O2 Liters/Min Minute Volume Not Reportable Vent Rate 18 Vent Mode Cmv FiO2 Tidal Volume 350 PEEP 10 Peak Inspir Pressure Not Reportable Pressure Support Not Reportable Sodium Potassium Chloride Carbon Dioxide Anion Gap BUN Creatinine Estim Creat Clear Calc Estimated GFR Glucose POC Capillary Glucose 135 H Calcium Phosphorus Magnesium Total Bilirubin AST ALT Alkaline Phosphatase NT-Pro-B Natriuret Pep Total Protein Albumin Bronch Specimen Source Bronchial lavage Bronchial Fluid Color Red Bronchial Fluid Appearance Cloudy Bronchial Neutrophils 47 Bronchial Lymphocytes 48 Bronchial Monocytes 2 Bronchial Eosinophils 0 Bronchial Macrophages 3 Bronchial Other Cells 0 C. pneumoniae DNA (PCR) Cancelled Chlamydia DNA Source Cancelled HSV I DNA PCR Cancelled HSV II DNA PCR Cancelled Pneumocystis carinii Ag Cancelled Resp Viral Panel Intrp Cancelled Viral Specimen Source Cancelled 10/21/25 10/21/25 10/21/25 18:27 19:51 23:37 WBC RBC Hgb Hct MCV MCH MCHC RDW Plt Count MPV Immature Gran % (Auto) Neut % (Auto) Lymph % (Auto) [place] % (Auto) Eos % (Auto) Baso % (Auto) Lymph # (Auto) [place] # (Auto) Eos # (Auto) Baso # (Auto) Abs Immat Gran (auto) Absolute Neuts (auto) Absolute Nucleated RBC Band Neutrophils % Nucleated RBC % Platelet Estimate % Immature Plt Fraction Hypochromasia Anisocytosis Ovalocytes Schistocytes APTT > 200.0 H* Puncture Site ABG pH ABG pCO2 ABG pO2 ABG PO2/FiO2 Ratio ABG HCO3 ABG O2 Saturation ABG O2 Content ABG Base Excess A-a Gradient Oxyhemoglobin Carboxyhemoglobin Methemoglobin Reduced Hemoglobin Total Hemoglobin O2 Delivery Device O2 Liters/Min Minute Volume Vent Rate Vent Mode FiO2 Tidal Volume PEEP Peak Inspir Pressure Pressure Support Sodium Potassium Chloride Carbon Dioxide Anion Gap BUN Creatinine Estim Creat Clear Calc Estimated GFR Glucose POC Capillary Glucose 163 H 142 H Calcium Phosphorus Magnesium Total Bilirubin AST ALT Alkaline Phosphatase NT-Pro-B Natriuret Pep Total Protein Albumin Bronch Specimen Source Bronchial Fluid Color Bronchial Fluid Appearance Bronchial Neutrophils Bronchial Lymphocytes Bronchial Monocytes Bronchial Eosinophils Bronchial Macrophages Bronchial Other Cells C. pneumoniae DNA (PCR) Chlamydia DNA Source HSV I DNA PCR HSV II DNA PCR Pneumocystis carinii Ag Resp Viral Panel Intrp Viral Specimen Source 10/22/25 10/22/25 10/22/25 03:54 04:29 09:23 WBC 6.6 RBC 2.23 L Hgb 9.1 L Hct 25.7 L MCV 115.2 H MCH 40.8 H MCHC 35.4 RDW 15.0 H Plt Count 113 L MPV 10.3 Immature Gran % (Auto) 1.8 H Neut % (Auto) 85.0 H Lymph % (Auto) 5.2 L [place] % (Auto) 7.8 Eos % (Auto) 0.0 Baso % (Auto) 0.2 Lymph # (Auto) 0.34 L [place] # (Auto) 0.5 Eos # (Auto) 0.0 Baso # (Auto) 0.0 Abs Immat Gran (auto) 0.12 H Absolute Neuts (auto) 5.6 Absolute Nucleated RBC 0.050 H Band Neutrophils % Not Reportable Nucleated RBC % 0.8 H Platelet Estimate Decreased % Immature Plt Fraction 4.0 Hypochromasia 1+ Anisocytosis 1+ Ovalocytes Occasional Schistocytes None seen APTT 126.7 H Puncture Site Right radial ABG pH 7.422 ABG pCO2 47.3 H ABG pO2 74.1 L ABG PO2/FiO2 Ratio 1.14 ABG HCO3 30.1 H ABG O2 Saturation 95.0 ABG O2 Content 13.1 L ABG Base Excess 5.0 A-a Gradient 337.9 Oxyhemoglobin 93.6 Carboxyhemoglobin 0.9 Methemoglobin 0.3 Reduced Hemoglobin 5.2 H Total Hemoglobin 9.9 L O2 Delivery Device Ventilator O2 Liters/Min Not Reportable Minute Volume Not Reportable Vent Rate 18 Vent Mode Cmv FiO2 65 Tidal Volume 350 PEEP 10 Peak Inspir Pressure Not Reportable Pressure Support Not Reportable Sodium 132 L Potassium 3.9 Chloride 101 Carbon Dioxide 34 H Anion Gap -3 L BUN 14 Creatinine 0.57 L Estim Creat Clear Calc 86 Estimated GFR > 60 Glucose 121 H POC Capillary Glucose Calcium 7.4 L Phosphorus 2.8 Magnesium 2.5 H Total Bilirubin 0.3 AST 27 ALT 47 H Alkaline Phosphatase 179 H NT-Pro-B Natriuret Pep 391 H 324 H Total Protein 4.8 L Albumin 2.4 L Bronch Specimen Source Bronchial Fluid Color Bronchial Fluid Appearance Bronchial Neutrophils Bronchial Lymphocytes Bronchial Monocytes Bronchial Eosinophils Bronchial Macrophages Bronchial Other Cells C. pneumoniae DNA (PCR) Chlamydia DNA Source HSV I DNA PCR HSV II DNA PCR Pneumocystis carinii Ag Resp Viral Panel Intrp Viral Specimen Source
--- NOTE | 2025-10-22 11:07 | PCNFU ---
Nutrition Follow-Up Complete: Inadequate energy intake related to mechanical ventilation in the setting of ARDS, as evidenced by need for full tube feeding Goal: Meet estimated nutrition needs Patient will continue current goal. Pt current nutrition is Vital AF at 55 ml/hr. Last recorded weight is 79.4 kg, up from 71.5 kg on admit. Bowel Motility: No BM reported. Labs Reviewed: Na 132, Alb 2.4, Hgb 9.1, Hct 25.7 Meds Noted: Nimbex, Fentanyl, Versed, Colace, Propofol 25 ypqg=205 kcal. Skin: WNL Additional Notes: Patient remains on mechanical vent. Tube feedings are being tolerated with Vital AF 1.2 at 55 ml/hr. Total Nutrition with Propofol infusion: 1664 kcal/91 gm protein/981 ml water. Flush 30 ml q 4 hours. Meeting 93% kcal needs at 25 kcal/kg and 91% protein needs at 1.4 kcal/kg. Agree with diet orders at this time. Monitoring tube feeding rate, tolerance, weights, labs, output, plan of care Follow up Tuesday /Tuesday, daily rounds
[2025-10-22] MEDS: FENTANYL 2,500MCG/NS250ML(*CRX 2,500 MCG/250 ML BAG 20 MCG IV CONT (11:41)
[2025-10-22 12:27] LABS: Partial Thromboplastin Time 99.2 Seconds (22.3-36.8)
--- NOTE | 2025-10-22 13:06 | PM.PNGS ---
Progress Note: A&P Assessment and Plan (1) Pneumomediastinum: Code(s): J98.2 - Interstitial emphysema Status: Acute Assessment and Plan: CT yesterday demonstrated severe pneumomediastinum with air tracking cephalad into the neck soft tissues resulting in extensive subcutaneous emphysema in the neck and right-sided chest wall. Multifocal consolidative changes and trace bilateral pleural effusions with overall worse appearance compared to previous exam on October 16. Chest x-ray this morning demonstrated bilateral pneumonia. Mediastinal and hilar contours within normal limits. Due to worsening pneumomediastinum, it was advised that patient be transferred to a tertiary care facility with cardiothoracic surgery for further workup and treatment. However, patient was not accepted at [facility]. Any surgical intervention at this time would need to be performed by cardiothoracic surgery. General surgery team will sign off at this time. Please call with any concerns or questions. Continue to manage per lockstitch waistline joiner recommendations. (2) Acute respiratory failure: Code(s): J96.00 - Acute respiratory failure, unspecified whether with hypoxia or hypercapnia Status: Acute Assessment and Plan: See above. On mechanical ventilation. (3) Pneumonia: Code(s): J18.9 - Pneumonia, unspecified organism Status: Acute Assessment and Plan: Bronchial alveo lavage cultures still pending. Continue IV antibiotics. (4) Pulmonary embolism: Code(s): I26.99 - Other pulmonary embolism without acute cor pulmonale Status: Acute Assessment and Plan: Continue heparin drip. (5) Breast cancer: Code(s): C50.919 - Malignant neoplasm of unspecified site of unspecified female breast Status: Acute Assessment and Plan: Patient follows with [facility]. Chemo meds being held. (6) SVT (supraventricular tachycardia): Code(s): I47.1 - Supraventricular tachycardia Status: Acute (7) Hyperlipidemia: Code(s): E78.5 - Hyperlipidemia, unspecified Status: Acute (8) Hypertension: Code(s): I10 - Essential (primary) hypertension Status: Acute Plan Discussed patient's case and plan of care with Dr. Hussein. Subjective Subjective Date/Time Seen: 10/22/25 13:06 Patient reports: no bowel movement and afebrile Interval history: Patient still intubated and sedated. No acute events overnight. Chest CT yesterday demonstrated severe pneumomediastinum. Exam Chest: Other: subcutaneous emphysema Resp: Other: on mechanical ventilation. Cardio: Rate: regular rate Rhythm: regular rhythm Objective Data Vital Signs Vital Signs: Vital Signs - 24 hr 10/21/25 13:19 10/21/25 14:00 10/21/25 14:00 Temperature Pulse Rate 99 110 H 103 H Respiratory Rate 22 H 18 Blood Pressure 103/59 L Pulse Oximetry Oxygen Delivery Fraction of Inspired Oxygen 10/21/25 14:00 10/21/25 14:00 10/21/25 14:00 Temperature Pulse Rate 103 H 103 H 103 H Respiratory Rate 18 18 18 Blood Pressure 101/63 Pulse Oximetry Oxygen Delivery Fraction of Inspired Oxygen 10/21/25 15:00 10/21/25 15:00 10/21/25 15:00 Temperature 98.8 F Pulse Rate 106 H 99 110 H Respiratory Rate 19 18 Blood Pressure 99/70 L Pulse Oximetry 100 100 Oxygen Delivery Mechanical Ventilation Fraction of Inspired Oxygen 100 100 10/21/25 15:00 10/21/25 15:05 10/21/25 15:06 Temperature Pulse Rate 111 H 106 H 106 H Respiratory Rate 17 17 Blood Pressure Pulse Oximetry Oxygen Delivery Fraction of Inspired Oxygen 100 10/21/25 15:15 10/21/25 15:31 10/21/25 16:00 Temperature Pulse Rate 107 H 109 H 112 H Respiratory Rate 19 19 Blood Pressure Pulse Oximetry Oxygen Delivery Fraction of Inspired Oxygen 10/21/25 16:00 10/21/25 16:00 10/21/25 16:00 Temperature 98.8 F Pulse Rate 110 H Respiratory Rate 19 Blood Pressure 103/71 Pulse Oximetry 100 100 Oxygen Delivery Mechanical Ventilation Fraction of Inspired Oxygen 100 65 10/21/25 16:00 10/21/25 16:00 10/21/25 16:00 Temperature 98.8 F Pulse Rate 110 H 111 H 111 H Respiratory Rate 19 19 19 Blood Pressure 103/71 Pulse Oximetry 100 Oxygen Delivery Fraction of Inspired Oxygen 10/21/25 16:00 10/21/25 16:00 10/21/25 17:00 Temperature 98.7 F Pulse Rate 111 H 111 H 113 H Respiratory Rate 19 19 20 Blood Pressure 103/71 101/71 Pulse Oximetry 100 Oxygen Delivery Fraction of Inspired Oxygen 10/21/25 17:00 10/21/25 17:24 10/21/25 17:30 Temperature 98.7 F Pulse Rate 113 H 117 H 89 Respiratory Rate 20 19 Blood Pressure 101/71 110/70 Pulse Oximetry 100 98 Oxygen Delivery Mechanical Ventilation Fraction of Inspired Oxygen 65 10/21/25 17:40 10/21/25 18:00 10/21/25 18:00 Temperature Pulse Rate 117 H 104 H 111 H Respiratory Rate 19 Blood Pressure 103/71 Pulse Oximetry Oxygen Delivery Fraction of Inspired Oxygen 96 10/21/25 18:00 10/21/25 18:00 10/21/25 18:00 Temperature 98.7 F 98.7 F Pulse Rate 115 H 115 H 115 H Respiratory Rate 20 20 20 Blood Pressure 112/73 112/73 Pulse Oximetry 95 95 Oxygen Delivery Fraction of Inspired Oxygen 10/21/25 18:00 10/21/25 18:00 10/21/25 18:00 Temperature Pulse Rate 115 H 115 H 115 H Respiratory Rate 20 20 20 Blood Pressure 112/73 Pulse Oximetry Oxygen Delivery Fraction of Inspired Oxygen 10/21/25 18:46 10/21/25 18:46 10/21/25 19:00 Temperature 98.6 F Pulse Rate 118 H 118 H 110 H Respiratory Rate 19 19 Blood Pressure 103/72 Pulse Oximetry 97 Oxygen Delivery Fraction of Inspired Oxygen 10/21/25 19:00 10/21/25 19:12 10/21/25 19:54 Temperature 98.6 F Pulse Rate 110 H 111 H 105 H Respiratory Rate 19 26 H Blood Pressure 103/72 107/72 100/66 Pulse Oximetry 97 Oxygen Delivery Fraction of Inspired Oxygen 10/21/25 19:56 10/21/25 19:56 10/21/25 20:00 Temperature Pulse Rate 104 H 103 H 102 H Respiratory Rate 25 H 26 H 23 H Blood Pressure Pulse Oximetry Oxygen Delivery Fraction of Inspired Oxygen 10/21/25 20:00 10/21/25 20:00 10/21/25 20:00 Temperature 98.7 F Pulse Rate 102 H 104 H Respiratory Rate 25 H 24 H Blood Pressure 103/71 Pulse Oximetry 96 Oxygen Delivery Fraction of Inspired Oxygen 96 10/21/25 20:00 10/21/25 20:15 10/21/25 20:18 Temperature Pulse Rate 103 H 105 H 105 H Respiratory Rate 24 H 25 H Blood Pressure 99/67 L Pulse Oximetry Oxygen Delivery Fraction of Inspired Oxygen 10/21/25 20:20 10/21/25 20:25 10/21/25 20:33 Temperature Pulse Rate 98 98 105 H Respiratory Rate 20 20 26 H Blood Pressure 98/70 L Pulse Oximetry 96 96 Oxygen Delivery Mechanical Ventilation Fraction of Inspired Oxygen 65 65 10/21/25 20:33 10/21/25 20:33 10/21/25 20:40 Temperature Pulse Rate 101 H 101 H 102 H Respiratory Rate 19 19 Blood Pressure Pulse Oximetry 100 Oxygen Delivery Mechanical Ventilation Fraction of Inspired Oxygen 65 10/21/25 21:00 10/21/25 21:00 10/21/25 21:00 Temperature 98.6 F Pulse Rate 104 H 104 H 105 H Respiratory Rate 21 H 24 H 25 H Blood Pressure 96/68 L 98/68 L Pulse Oximetry 98 Oxygen Delivery Fraction of Inspired Oxygen 10/21/25 21:15 10/21/25 21:30 10/21/25 21:32 Temperature Pulse Rate 106 H 104 H 107 H Respiratory Rate 26 H 26 H 25 H Blood Pressure 99/64 L 98/72 L Pulse Oximetry Oxygen Delivery Fraction of Inspired Oxygen 10/21/25 21:47 10/21/25 22:00 10/21/25 22:00 Temperature Pulse Rate 103 H 100 100 Respiratory Rate 24 H Blood Pressure 102/71 Pulse Oximetry 94 Oxygen Delivery Fraction of Inspired Oxygen 65 10/21/25 22:00 10/21/25 22:00 10/21/25 22:00 Temperature 98.5 F Pulse Rate 103 H 103 H 103 H Respiratory Rate 21 H 21 H 21 H Blood Pressure 103/67 Pulse Oximetry 94 Oxygen Delivery Fraction of Inspired Oxygen 10/21/25 22:00 10/21/25 22:04 10/21/25 22:15 Temperature Pulse Rate 100 103 H 99 Respiratory Rate 25 H 21 H 26 H Blood Pressure 103/67 Pulse Oximetry Oxygen Delivery Fraction of Inspired Oxygen 10/21/25 22:17 10/21/25 22:25 10/21/25 22:25 Temperature Pulse Rate 103 H 100 100 Respiratory Rate 26 H 23 H 23 H Blood Pressure 100/68 Pulse Oximetry Oxygen Delivery Fraction of Inspired Oxygen 10/21/25 22:26 10/21/25 22:26 10/21/25 22:30 Temperature Pulse Rate 104 H 104 H 105 H Respiratory Rate 24 H 24 H 25 H Blood Pressure 101/64 Pulse Oximetry Oxygen Delivery Fraction of Inspired Oxygen 10/21/25 22:45 10/21/25 23:00 10/21/25 23:00 Temperature 98.4 F Pulse Rate 101 H 100 100 Respiratory Rate 24 H 25 H 21 H Blood Pressure 100/56 L 97/64 L 97/64 L Pulse Oximetry 93 Oxygen Delivery Fraction of Inspired Oxygen 10/21/25 23:10 10/21/25 23:15 10/21/25 23:30 Temperature Pulse Rate 101 H 102 H 103 H Respiratory Rate 21 H 23 H Blood Pressure 97/63 L 102/61 Pulse Oximetry 100 Oxygen Delivery Mechanical Ventilation Fraction of Inspired Oxygen 65 10/21/25 23:45 10/22/25 00:00 10/22/25 00:00 Temperature 98.2 F Pulse Rate 107 H 105 H 105 H Respiratory Rate 21 H 20 20 Blood Pressure 94/64 L 93/66 L Pulse Oximetry 95 Oxygen Delivery Fraction of Inspired Oxygen 10/22/25 00:00 10/22/25 00:00 10/22/25 00:00 Temperature Pulse Rate 105 H 104 H Respiratory Rate 20 20 Blood Pressure 93/66 L Pulse Oximetry Oxygen Delivery Fraction of Inspired Oxygen 65 10/22/25 00:00 10/22/25 00:00 10/22/25 00:00 Temperature Pulse Rate 102 H 100 105 H Respiratory Rate 20 20 Blood Pressure Pulse Oximetry 96 96 Oxygen Delivery Mechanical Ventilation Fraction of Inspired Oxygen 65 65 10/22/25 00:00 10/22/25 00:36 10/22/25 00:36 Temperature Pulse Rate 105 H 103 H 103 H Respiratory Rate 22 H 20 20 Blood Pressure 90/66 L 90/66 L Pulse Oximetry Oxygen Delivery Fraction of Inspired Oxygen 10/22/25 01:00 10/22/25 02:00 10/22/25 02:00 Temperature 98.2 F Pulse Rate 102 H 95 95 Respiratory Rate 20 22 H Blood Pressure 90/61 L Pulse Oximetry 96 95 Oxygen Delivery Fraction of Inspired Oxygen 65 10/22/25 02:00 10/22/25 02:00 10/22/25 02:00 Temperature 98.1 F Pulse Rate 96 95 95 Respiratory Rate 22 H 22 H 22 H Blood Pressure 90/61 L Pulse Oximetry 95 Oxygen Delivery Fraction of Inspired Oxygen 10/22/25 02:00 10/22/25 02:00 10/22/25 02:26 Temperature Pulse Rate 95 95 94 Respiratory Rate 22 H 22 H Blood Pressure 90/61 L Pulse Oximetry 100 Oxygen Delivery Mechanical Ventilation Fraction of Inspired Oxygen 65 10/22/25 02:26 10/22/25 02:32 10/22/25 02:51 Temperature Pulse Rate 94 95 99 Respiratory Rate 19 18 18 Blood Pressure Pulse Oximetry Oxygen Delivery Fraction of Inspired Oxygen 10/22/25 02:56 10/22/25 03:00 10/22/25 03:45 Temperature 98.0 F Pulse Rate 90 100 98 Respiratory Rate 18 19 19 Blood Pressure 105/58 L Pulse Oximetry 96 95 Oxygen Delivery Mechanical Ventilation Fraction of Inspired Oxygen 65 10/22/25 03:55 10/22/25 04:00 10/22/25 04:00 Temperature 97.9 F Pulse Rate 97 98 Respiratory Rate 19 19 Blood Pressure 92/63 L Pulse Oximetry 95 95 Oxygen Delivery Fraction of Inspired Oxygen 65 65 10/22/25 04:00 10/22/25 04:00 10/22/25 04:00 Temperature Pulse Rate 95 95 95 Respiratory Rate 18 18 18 Blood Pressure 92/63 L Pulse Oximetry Oxygen Delivery Fraction of Inspired Oxygen 10/22/25 04:00 10/22/25 04:00 10/22/25 04:26 Temperature Pulse Rate 98 92 96 Respiratory Rate 18 18 Blood Pressure Pulse Oximetry Oxygen Delivery Fraction of Inspired Oxygen 10/22/25 05:00 10/22/25 05:00 10/22/25 05:33 Temperature 97.8 F Pulse Rate 96 95 95 Respiratory Rate 18 18 Blood Pressure 96/61 L 92/68 L Pulse Oximetry 95 96 Oxygen Delivery Mechanical Ventilation Fraction of Inspired Oxygen 65 10/22/25 05:33 10/22/25 06:00 10/22/25 06:00 Temperature Pulse Rate 95 95 95 Respiratory Rate 18 18 Blood Pressure 92/68 L Pulse Oximetry 97 Oxygen Delivery Fraction of Inspired Oxygen 65 10/22/25 06:00 10/22/25 06:00 10/22/25 06:00 Temperature 97.8 F Pulse Rate 95 93 95 Respiratory Rate 18 18 18 Blood Pressure 92/65 L 92/65 L Pulse Oximetry 96 Oxygen Delivery Fraction of Inspired Oxygen 10/22/25 06:00 10/22/25 06:00 10/22/25 07:00 Temperature 97.7 F Pulse Rate 93 93 94 Respiratory Rate 18 18 19 Blood Pressure 94/60 L Pulse Oximetry 96 Oxygen Delivery Fraction of Inspired Oxygen 10/22/25 07:11 10/22/25 07:11 10/22/25 08:00 Temperature 97.7 F Pulse Rate 95 95 96 Respiratory Rate 18 18 23 H Blood Pressure 97/59 L Pulse Oximetry 96 Oxygen Delivery Fraction of Inspired Oxygen 10/22/25 08:20 10/22/25 08:20 10/22/25 08:35 Temperature Pulse Rate 97 97 95 Respiratory Rate 19 24 H 19 Blood Pressure 89/61 L Pulse Oximetry Oxygen Delivery Fraction of Inspired Oxygen 10/22/25 08:44 10/22/25 08:45 10/22/25 08:51 Temperature Pulse Rate 95 95 100 Respiratory Rate 20 18 Blood Pressure Pulse Oximetry 96 Oxygen Delivery Mechanical Ventilation Fraction of Inspired Oxygen 65 10/22/25 08:52 10/22/25 09:00 10/22/25 09:00 Temperature 97.7 F Pulse Rate 100 93 101 H Respiratory Rate 18 18 Blood Pressure 82/55 L 156/91 H Pulse Oximetry 99 Oxygen Delivery Fraction of Inspired Oxygen 10/22/25 09:00 10/22/25 09:00 10/22/25 10:00 Temperature 97.6 F Pulse Rate 96 104 H Respiratory Rate 18 Blood Pressure 110/69 Pulse Oximetry 98 Oxygen Delivery Mechanical Ventilation Fraction of Inspired Oxygen 65 65 10/22/25 10:10 10/22/25 10:10 10/22/25 10:55 Temperature Pulse Rate 104 H 104 H 95 Respiratory Rate 18 18 18 Blood Pressure 110/69 110/69 Pulse Oximetry Oxygen Delivery Fraction of Inspired Oxygen 10/22/25 11:00 10/22/25 11:26 10/22/25 11:41 Temperature 98.0 F Pulse Rate 97 103 H 96 Respiratory Rate 18 18 Blood Pressure 111/70 Pulse Oximetry 99 98 Oxygen Delivery Mechanical Ventilation Fraction of Inspired Oxygen 60 Intake/Output Intake/Output: Intake & Output 10/19/25 10/20/25 10/21/25 10/22/25 23:59 23:59 23:59 23:59 Intake Total 1706.0 2831.9 3455.6 974.4 Output Total 399 815 7790 3675 Balance 846.0 2031.9 2055.6 -2700.6 Meds/Results Medications: Active Medications Generic Name Dose Route Start Last Admin Trade Name Freq PRN Reason Stop Dose Admin Acetaminophen 650 mg 10/16/25 19:07 Acetaminophen 325 Mg Tablet PO Q4H PRN Mild Pain (1-3) or Fever Albuterol/Ipratropium 3 ml 10/17/25 14:00 10/22/25 08:34 Ipratropium 0.5 Mg/Albuterol Sulfate 2.5 Mg (Base) Ampul.Neb 3 Ml INHALATION 3 ml Q6HRT [facility] Administration Budesonide 0.5 mg 10/17/25 09:50 10/22/25 08:34 Budesonide Respule Neb 0.5 Mg/2 Ml Amp INHALATION 0.5 mg Q12HRT [facility] Administration Dextrose 12.5 gm 10/19/25 07:37 Dextrose 50% 25 Gm/50 Ml Syringe IV PUSH PRN PRN Hypoglycemia Protocol Docusate Sodium 100 mg 10/17/25 09:00 Docusate Sodium 100 Mg Capsule PO On Hold: 10/17/25 09:00 Q12HR [facility] Glucagon 1 mg 10/19/25 07:37 Glucagon For Inj 1 Mg Vial IM PRN PRN Hypoglycemia Protocol Glucose 15 gm 10/19/25 07:37 Glucose Oral Gel 15 Gm Of Glucse In 37.5 Gm Tube PO PRN PRN Hypoglycemia Protocol Heparin Sodium (Porcine) 4,000 units 10/17/25 01:19 10/21/25 13:49 Heparin Sodium 5,000 Units/Ml Vial IV PUSH 4,000 units PRN PRN Administration aPTT less than 55 seconds Heparin Sodium (Porcine) 2,500 units 10/17/25 01:19 10/21/25 06:15 Heparin Sodium 5,000 Units/Ml Vial IV PUSH 2,500 units PRN PRN Administration aPTT 55 - 70 seconds Heparin Sodium/Dextrose 25,000 units in 250 mls @ 10 mls/hr 10/17/25 01:19 10/22/25 05:15 Heparin Sodium/D5w 100 Units/Ml IV CONT 1,000 units/hr .Q24H [facility] 10 mls/hr Protocol Titration 1,000 UNITS/HR Meropenem 1 gm/ Sodium 100 mls @ 200 mls/hr 10/17/25 18:00 10/22/25 05:36 Chloride IVPB Infused Q12H [facility] Infusion Doxycycline Hyclate 100 mg/ 100 mls @ 100 mls/hr 10/17/25 21:00 10/22/25 08:58 Sodium Chloride IVPB 100 mls/hr Q12H [facility] Administration Fentanyl Citrate 2,500 mcg in 250 mls @ 20 mls/hr 10/18/25 09:20 10/22/25 11:41 Fentanyl 2,500 Mcg/Ns 250 Ml IV CONT 200 mcg/hr .[id number] [facility] 20 mls/hr Protocol Administration 200 MCG/HR Midazolam HCl 100 mg in 100 mls @ 10 mls/hr 10/18/25 09:20 10/22/25 08:52 Versed 100 Mg/Ns 100 Ml IV CONT 10 mg/hr .Q10H [facility] 10 mls/hr Protocol Titration Dextrose 1,000 mls @ 100 mls/hr 10/19/25 07:37 Dextrose 5% 1,000 Ml IVPB PRN PRN Hypoglycemia Protocol Propofol 100 mls @ 11.325 mls/hr 10/19/25 10:25 10/22/25 08:51 Diprivan IV CONT 25 mcg/kg/min .Q8H50M [facility] 11.33 mls/hr Protocol Titration 25 MCG/KG/MIN Cisatracurium Besylate 200 mg/ 100 mls @ 22.65 mls/hr 10/21/25 13:00 10/22/25 10:10 Sodium Chloride IV CONT 10 mcg/kg/min .Q4H25M [facility] 22.65 mls/hr Protocol Administration 10 MCG/KG/MIN Trimethoprim/Sulfamethoxazole 523.6 mls @ 261.8 mls/hr 10/21/25 14:00 10/22/25 06:11 23.6 ml/ Dextrose IVPB 261.8 mls/hr Q8H [facility] Administration Norepinephrine Bitartrate 8 mg in 250 mls @ 9.375 mls/hr 10/22/25 08:50 10/22/25 09:00 Levophed 8 Mg/D5w 250 Ml IV CONT 5 mcg/min .Q24H [facility] 9.38 mls/hr Protocol Administration 5 MCG/MIN Insulin Aspart 3 - 6 units 10/19/25 12:00 10/22/25 05:36 Insulin Aspart (*Bkc) 100 Units/Ml SUB-Q Not Given Q6HR [facility] Protocol Levothyroxine Sodium 50 mcg 10/17/25 06:30 10/22/25 05:36 Levothyroxine Sodium 50 Mcg Tablet PO 50 mcg DAILY@0630 [facility] Administration Methylprednisolone Sodium Succinate 40 mg 10/22/25 21:00 Methylprednisolone Sod Succ 40 Mg Vial IV PUSH Q12H [facility] Midazolam HCl 4 mg 10/22/25 08:21 Midazolam Hcl (*Crx) 2 Mg/2 Ml Vial IV PUSH Q1H PRN Agitation while on ventilator Multi-Ingred Cream/Lotion/Oil/Oint 1 applic 10/18/25 21:00 10/22/25 08:59 Mineral Oil/White Petrolatum Ointment EACH EYE 1 applic Q12HR [facility] Administration Ondansetron HCl 4 mg 10/17/25 07:51 10/18/25 06:55 Ondansetron Inj 4 Mg/2 Ml Vial IV PUSH 4 mg Q6H PRN Administration Nausea And Vomiting Pantoprazole Sodium 40 mg 10/18/25 09:00 10/22/25 08:59 Pantoprazole Sodium Iv 40 Mg Vial IV PUSH 40 mg QAM [facility] Administration Pravastatin Sodium 40 mg 10/16/25 19:05 10/22/25 08:59 Pravastatin Sodium 20 Mg Tablet BY MOUTH 40 mg DAILY [facility] Administration Sodium Chloride 10 ml 10/18/25 14:00 10/22/25 05:02 Central Line Flush IV PUSH 10 ml Q8HR [facility] Administration Sodium Chloride 10 ml 10/18/25 10:10 Central Line Flush IV PUSH PRN PRN with TPN bag changes Sodium Chloride 20 ml 10/18/25 10:10 10/20/25 05:27 Central Line Flush IV PUSH 20 ml PRN PRN Administration after blood draws Radiology Results: ITS Impressions Chest CTA 10/16/25 16:25 IMPRESSION: 1. Pulmonary emboli in subsegmental pulmonary arteries in the bilateral basilar lower lobes with relatively low clot burden and without evident right heart strain. Dr. French discussed these findings with Dr. Guadalupe at 4:40 PM. 2. Diffuse bilateral lung disease suspicious for atypical pneumonia with appearance similar to COVID pneumonia as manifest during the early stages of the pandemic. 3. Small amount of pneumomediastinum of indeterminate origin. Chest CT 10/21/25 14:20 IMPRESSION: 1. Severe pneumomediastinum with air tracking cephalad into the neck soft tissues resulting in extensive subcutaneous emphysema in the neck, and lies right-sided chest wall. 2. Multifocal consolidative changes and trace bilateral pleural effusions with overall worse appearance compared to October 16 exam. 3. Other findings as above. Chest X-Ray 10/22/25 11:28 Impression: Bilateral pneumonia. The findings appear minimally improved Venous Doppler Study 10/22/25 12:07 IMPRESSION: 1. Somewhat limited examination with no deep venous thrombosis identified. Labs Labs: Laboratory Results - last 24 hr 10/20/25 10/21/25 10/21/25 04:26 12:25 18:27 WBC RBC Hgb Hct MCV MCH MCHC RDW Plt Count MPV Immature Gran % (Auto) Neut % (Auto) Lymph % (Auto) [place] % (Auto) Eos % (Auto) Baso % (Auto) Lymph # (Auto) [place] # (Auto) Eos # (Auto) Baso # (Auto) Abs Immat Gran (auto) Absolute Neuts (auto) Absolute Nucleated RBC Band Neutrophils % Nucleated RBC % Platelet Estimate % Immature Plt Fraction Hypochromasia Anisocytosis Ovalocytes Schistocytes APTT 27.1 Puncture Site ABG pH ABG pCO2 ABG pO2 ABG PO2/FiO2 Ratio ABG HCO3 ABG O2 Saturation Not Reportable ABG O2 Content ABG Base Excess A-a Gradient Oxyhemoglobin Not Reportable Carboxyhemoglobin Methemoglobin Reduced Hemoglobin Total Hemoglobin O2 Delivery Device O2 Liters/Min Minute Volume Not Reportable Vent Rate 18 Vent Mode Cmv FiO2 Tidal Volume 350 PEEP 10 Peak Inspir Pressure Not Reportable Pressure Support Not Reportable Sodium Potassium Chloride Carbon Dioxide Anion Gap BUN Creatinine Estim Creat Clear Calc Estimated GFR Glucose POC Capillary Glucose 163 H Calcium Phosphorus Magnesium Total Bilirubin AST ALT Alkaline Phosphatase NT-Pro-B Natriuret Pep Total Protein Albumin Bronch Specimen Source Bronchial lavage Bronchial Fluid Color Red Bronchial Fluid Appearance Cloudy Bronchial Neutrophils 47 Bronchial Lymphocytes 48 Bronchial Monocytes 2 Bronchial Eosinophils 0 Bronchial Macrophages 3 Bronchial Other Cells 0 10/21/25 10/21/25 10/22/25 19:51 23:37 03:54 WBC 6.6 RBC 2.23 L Hgb 9.1 L Hct 25.7 L MCV 115.2 H MCH 40.8 H MCHC 35.4 RDW 15.0 H Plt Count 113 L MPV 10.3 Immature Gran % (Auto) 1.8 H Neut % (Auto) 85.0 H Lymph % (Auto) 5.2 L [place] % (Auto) 7.8 Eos % (Auto) 0.0 Baso % (Auto) 0.2 Lymph # (Auto) 0.34 L [place] # (Auto) 0.5 Eos # (Auto) 0.0 Baso # (Auto) 0.0 Abs Immat Gran (auto) 0.12 H Absolute Neuts (auto) 5.6 Absolute Nucleated RBC 0.050 H Band Neutrophils % Not Reportable Nucleated RBC % 0.8 H Platelet Estimate Decreased % Immature Plt Fraction 4.0 Hypochromasia 1+ Anisocytosis 1+ Ovalocytes Occasional Schistocytes None seen APTT > 200.0 H* 126.7 H Puncture Site ABG pH ABG pCO2 ABG pO2 ABG PO2/FiO2 Ratio ABG HCO3 ABG O2 Saturation ABG O2 Content ABG Base Excess A-a Gradient Oxyhemoglobin Carboxyhemoglobin Methemoglobin Reduced Hemoglobin Total Hemoglobin O2 Delivery Device O2 Liters/Min Minute Volume Vent Rate Vent Mode FiO2 Tidal Volume PEEP Peak Inspir Pressure Pressure Support Sodium 132 L Potassium 3.9 Chloride 101 Carbon Dioxide 34 H Anion Gap -3 L BUN 14 Creatinine 0.57 L Estim Creat Clear Calc 86 Estimated GFR > 60 Glucose 121 H POC Capillary Glucose 142 H Calcium 7.4 L Phosphorus 2.8 Magnesium 2.5 H Total Bilirubin 0.3 AST 27 ALT 47 H Alkaline Phosphatase 179 H NT-Pro-B Natriuret Pep 391 H Total Protein 4.8 L Albumin 2.4 L Bronch Specimen Source Bronchial Fluid Color Bronchial Fluid Appearance Bronchial Neutrophils Bronchial Lymphocytes Bronchial Monocytes Bronchial Eosinophils Bronchial Macrophages Bronchial Other Cells 10/22/25 10/22/25 10/22/25 04:29 09:23 11:10 WBC RBC Hgb Hct MCV MCH MCHC RDW Plt Count MPV Immature Gran % (Auto) Neut % (Auto) Lymph % (Auto) [place] % (Auto) Eos % (Auto) Baso % (Auto) Lymph # (Auto) [place] # (Auto) Eos # (Auto) Baso # (Auto) Abs Immat Gran (auto) Absolute Neuts (auto) Absolute Nucleated RBC Band Neutrophils % Nucleated RBC % Platelet Estimate % Immature Plt Fraction Hypochromasia Anisocytosis Ovalocytes Schistocytes APTT Puncture Site Right radial ABG pH 7.422 ABG pCO2 47.3 H ABG pO2 74.1 L ABG PO2/FiO2 Ratio 1.14 ABG HCO3 30.1 H ABG O2 Saturation 95.0 ABG O2 Content 13.1 L ABG Base Excess 5.0 A-a Gradient 337.9 Oxyhemoglobin 93.6 Carboxyhemoglobin 0.9 Methemoglobin 0.3 Reduced Hemoglobin 5.2 H Total Hemoglobin 9.9 L O2 Delivery Device Ventilator O2 Liters/Min Not Reportable Minute Volume Not Reportable Vent Rate 18 Vent Mode Cmv FiO2 65 Tidal Volume 350 PEEP 10 Peak Inspir Pressure Not Reportable Pressure Support Not Reportable Sodium Potassium Chloride Carbon Dioxide Anion Gap BUN Creatinine Estim Creat Clear Calc Estimated GFR Glucose POC Capillary Glucose 118 H Calcium Phosphorus Magnesium Total Bilirubin AST ALT Alkaline Phosphatase NT-Pro-B Natriuret Pep 324 H Total Protein Albumin Bronch Specimen Source Bronchial Fluid Color Bronchial Fluid Appearance Bronchial Neutrophils Bronchial Lymphocytes Bronchial Monocytes Bronchial Eosinophils Bronchial Macrophages Bronchial Other Cells 10/22/25 11:50 WBC RBC Hgb Hct MCV MCH MCHC RDW Plt Count MPV Immature Gran % (Auto) Neut % (Auto) Lymph % (Auto) [place] % (Auto) Eos % (Auto) Baso % (Auto) Lymph # (Auto) [place] # (Auto) Eos # (Auto) Baso # (Auto) Abs Immat Gran (auto) Absolute Neuts (auto) Absolute Nucleated RBC Band Neutrophils % Nucleated RBC % Platelet Estimate % Immature Plt Fraction Hypochromasia Anisocytosis Ovalocytes Schistocytes APTT 99.2 H Puncture Site ABG pH ABG pCO2 ABG pO2 ABG PO2/FiO2 Ratio ABG HCO3 ABG O2 Saturation ABG O2 Content ABG Base Excess A-a Gradient Oxyhemoglobin Carboxyhemoglobin Methemoglobin Reduced Hemoglobin Total Hemoglobin O2 Delivery Device O2 Liters/Min Minute Volume Vent Rate Vent Mode FiO2 Tidal Volume PEEP Peak Inspir Pressure Pressure Support Sodium Potassium Chloride Carbon Dioxide Anion Gap BUN Creatinine Estim Creat Clear Calc Estimated GFR Glucose POC Capillary Glucose Calcium Phosphorus Magnesium Total Bilirubin AST ALT Alkaline Phosphatase NT-Pro-B Natriuret Pep Total Protein Albumin Bronch Specimen Source Bronchial Fluid Color Bronchial Fluid Appearance Bronchial Neutrophils Bronchial Lymphocytes Bronchial Monocytes Bronchial Eosinophils Bronchial Macrophages Bronchial Other Cells
[2025-10-22] MEDS: PROPOFOL IV EMULSION 100 ML 11.33 MG IV CONT ×2 (13:48→20:25)
--- NOTE | 2025-10-22 14:53 | PC.NURSE ---
Per Dr Wharton, ok not to prone patient. Keep patient supine at this time
[2025-10-22] MEDS: HEPARIN SOD/D5W 100 UNITS/ML 25,000 UNITS/250 ML BAG 10 UNITS IV CONT (18:44)
[2025-10-22 19:25] LABS: Partial Thromboplastin Time 102.7 Seconds (22.3-36.8)
[2025-10-22] MEDS: CISATRACURIUM BESYLATE 200 MG in SODIUM CHLORIDE 0.9% IV 80 ML 21.52 ML IV CONT (23:30)
[2025-10-23] VITALS (51 sets, daily range): BP systolic 80–118; BP diastolic 50–81; PULSE 99–135; RESP 18; TEMP 37.2–37.8; O2SAT 86–97
[2025-10-23] MEDS: FENTANYL 2,500MCG/NS250ML(*CRX 2,500 MCG/250 ML BAG 20 MCG IV CONT ×2 (00:05→12:12)
[2025-10-23] MEDS: MIDAZOLAM 100MG/NS 100ML(*CRX) 100 MG/100 ML BAG 10 MG IV CONT ×2 (00:07→09:15)
[2025-10-23] MEDS: IPRATROPIUM 0.5 MG/ALBUTEROL SULFATE 2.5 MG (BASE) AMPUL.NEB 3 ML INHALATION ×3 (01:02→13:53)
[2025-10-23] MEDS: CISATRACURIUM BESYLATE 200 MG in SODIUM CHLORIDE 0.9% IV 80 ML 21.52 ML IV CONT ×3 (04:12→13:43)
[2025-10-23] MEDS: PROPOFOL IV EMULSION 100 ML 11.33 MG IV CONT (04:12)
[2025-10-23 04:43] LABS: Hematocrit 30.7 % (37.0-47.0); Hemoglobin 10.6 g/dL (12.0-15.0); Immature Granulocyte Percent A 4.6 % (0-0.5); Lymphocytes Absolute Auto 1.10 K/mm3 (0.9-3.2); Mean Corpuscular HGB Conc 34.5 g/dl (32-36); Mean Corpuscular Hemoglobin 39.8 pg (26-34); Mean Corpuscular Volume 115.4 fl (80-100); Nucleated Red Blood Cells Absolute Auto 0.310 K/mm3 (0.0-0.012); Nucleated Red Blood Cells Perc 2.5 % (0.0-0.2); Platelet Count Result 148 k/mm3 (150-375); Red Blood Count 2.66 M/mm3 (4.2-5.4); White Blood Count 12.4 K/mm3 (4.5-10.0)
[2025-10-23 04:48] LABS: HCO3 ABG 35.0 mEq/l (22.0-26.0); PCO2 ABG 56.9 mmHg (35.0-45.0); PO2 ABG 79.3 mmHg (80.0-100.0)
[2025-10-23 04:49] LABS: Alveolar/Arterial O2 Gradient 14.9 mmHg; Oxygen Saturation ABG 95.5 % (95.0-100.0)
[2025-10-23 04:50] LABS: Carboxyhemoglobin 1.5 % THb (0-2.0); Oxygen Content ABG 35.0 %vol (16.0-22.0)
[2025-10-23 04:51] LABS: Methemoglobin ABG 0.3 %THb (0-1.5); Reduced Hemoglobin 4.7 %THb (0-5.0)
[2025-10-23 04:53] LABS: Fractional Inspired Oxygen 75 %; Modified Allen's Test Pass; Site Drawn LEFT RADIAL
[2025-10-23 04:54] LABS: Arterial Blood Gas Tidal Volume 350 ml; Arterial Blood Gas Ventilator rate 18 /MIN
[2025-10-23 04:56] LABS: Partial Thromboplastin Time 74.7 Seconds (22.3-36.8)
[2025-10-23 04:57] LABS: Alanine Aminotransferase 43 U/L (6-35); Albumin Level 2.5 g/dL (3.5-5.1); Alkaline Phosphatase 200 U/L (38-126); Anion Gap -3 mmol/L (4-12); Aspartate Amino Transferase 37 U/L (14-36); Bilirubin,Total 0.3 mg/dL (0.2-1.3); Blood Urea Nitrogen 25 mg/dL (7-17); Calcium 7.1 mg/dL (8.4-10.2); Carbon Dioxide 37 mmol/L (22-30); Chloride 96 mmol/L (98-107); Estimated CRCL calculation 67 ml/min; Estimated Glomerular Filt Rate > 60; Glucose 92 mg/dL (65-110); Magnesium 2.5 mg/dL (1.6-2.3); Potassium 3.9 mmol/L (3.4-5.0); Sodium 130 mmol/L (137-145); Total Protein 5.2 g/dL (6.3-8.2); Triglycerides 142 mg/dL (<150)
[2025-10-23 05:41] LABS: Anisocytosis 1+; Macrocytosis 1+ (NORMAL); Schistocytes None Seen
[2025-10-23] MEDS: MEROPENEM 1 GM in SODIUM CHLORIDE 0.9% IV 100 ML 200 ML IVPB (05:50)
[2025-10-23] MEDS: LEVOTHYROXINE SODIUM 50 MCG TABLET PO (05:50)
[2025-10-23] MEDS: CENTRAL LINE FLUSH 10 ML IV PUSH ×2 (05:50→13:53)
[2025-10-23] MEDS: BUDESONIDE RESPULE NEB 0.5 MG/2 ML AMP INHALATION (08:40)
[2025-10-23] MEDS: PRAVASTATIN SODIUM 20 MG TABLET 40 MG BY MOUTH (08:55)
[2025-10-23] MEDS: PANTOPRAZOLE SODIUM IV 40 MG VIAL IV PUSH (08:56)
[2025-10-23] MEDS: DOXYCYCLINE IV 100 MG in SODIUM CHLORIDE 0.9% IV 100 ML IVPB (08:58)
[2025-10-23] MEDS: FUROSEMIDE INJ 100 MG/10 ML VIAL 80 MG IV PUSH (08:58)
[2025-10-23] MEDS: MIDAZOLAM HCL (*CRX) 2 MG/2 ML VIAL 4 MG IV PUSH (09:13)
--- NOTE | 2025-10-23 09:41 | P.PNINT_ITS ---
Assessment and Plan Assessment and Plan (1) Acute respiratory failure: Code(s): J96.00 - Acute respiratory failure, unspecified whether with hypoxia or hypercapnia Status: Acute Assessment and Plan: Acute hypoxic respiratory failure -multifactorial secondary to ARDS suspected secondary to chemotherapy, pulmonary embolism, patient may have a component of pulmonary edema and infectious pneumonia -recently treated for pneumonia as outpatient. 10/16: Chest CTA MPRESSION: 1. Pulmonary emboli in subsegmental pulmonary arteries in the bilateral basilar lower lobes with relatively low clot burden and without evident right heart strain. Dr. French discussed these findings with Dr. Guadalupe at 4:40 PM. 2. Diffuse bilateral lung disease suspicious for atypical pneumonia with appearance similar to COVID pneumonia as manifest during the early stages of the pandemic. 3. Small amount of pneumomediastinum of indeterminate origin -10/17: chest x-ray this morning showed mild worsening of diffuse severe pneumonitis 10/18: Patient successfully intubated, -continue bronchodilators and Pulmicort 10/18: Discussed with Dr. Yasir Gonzalez oncologist at [facility] who was her oncolo gist and treating of further breast cancer with Verzenio and anastrozole. He stated that Verzenio can cause pneumonitis in the have been case reports. Patient was started on steroids 10/19: Thick secretions, added Mucomyst with DuoNeb. Patient also has bouts of coughing, added guaifenesin per tube. Continue steroids for pneumonitis/ARDS 10/20: Patient on propofol infusion, opens her eyes, is coughing, tachypneic, dyssynchronous. I have asked the bedside RN to start fentanyl and Versed infusion and maintain RASS of -2. Repeat gases improving. CRP improving 10/21: bronchoscopy performed by Dr. Loomis, post bronchoscopy increased subcutaneous emphysema. Surgery was been consulted. Case discussed with thoracic surgery at [facility]. No surgical indication as per general surgeon. Continue supportive care and medical management. Case was discussed with a infectious Disease, vancomycin discontinued.- continue meropenem, doxycycline. Infectious Disease also added trimethoprim/sulfamethoxazole for him. PJP coverage Given patient's PF ratio is 84, patient was placed in prone positionand pt was paralysed Nimbex 10/21/2025: CT chest without contrast 1. Severe pneumomediastinum with air tracking cephalad into the neck soft tissues resulting in extensive subcutaneous emphysema in the neck, and lies right-sided chest wall. 2. Multifocal consolidative changes and trace bilateral pleural effusions with overall worse appearance compared to October 16 exam. 3. Other findings as above. 10/22 steroid dose change to to Solu-Medrol 40 mg IV q.12 hours for ARDS dosing this will also cover for PJP until smear is back. Lasix started 10/23 overnight increased oxygen requirement. I will increase the PEEP to 12. Continue current sedation and paralysis. Will I will place patient in prone position again today. Continue diuretics. Chest x-ray shows persistent bilateral diffuse infiltrates. ET tube in acceptable position. Will also try to place a arterial catheter for frequent ABGs and blood pressure monitoring All cultures infectious disease studies are either negative or pending. PJP smear is pending Continue doxycycline, meropenem and Bactrim (2) Pneumonia: Code(s): J18.9 - Pneumonia, unspecified organism Status: Acute Assessment and Plan: As above (3) Pulmonary embolism: Code(s): I26.99 - Other pulmonary embolism without acute cor pulmonale Status: Acute Assessment and Plan: Continue heparin infusion, CTA PE protocol showed subsegmental pulmonary embolism in the bibasal lower lobes with low clot burden and without evidence of right heart strain. lower extremity Dopplers were negative for DVT (4) Breast cancer: Code(s): C50.919 - Malignant neoplasm of unspecified site of unspecified female breast Status: Acute Assessment and Plan: Patient with breast cancer takes Verzenio, anastrozole, currently on hold, oncologist also agreed with holding these medications (5) Hx of supraventricular tachycardia: Code(s): Z86.79 - Personal history of other diseases of the circulatory system Status: Acute Assessment and Plan: Patient on Coreg, currently on hold due to hypotension. Heart rates are stable, regular rate and rhythm -continue to monitor (6) Hyperlipidemia: Code(s): E78.5 - Hyperlipidemia, unspecified Status: Acute Assessment and Plan: Continue pravastatin (7) Pneumomediastinum: Code(s): J98.2 - Interstitial emphysema Status: Acute Assessment and Plan: Likely related to coughing, positive-pressure ventilation, ARDS, bronchoscopy Dr. Montaño spoke to thoracic surgery at [facility] who recommended no surgical intervention at this time. Continue conservative management. Will try to keep peep as low as we can considering the current situation (8) Hypotension: Code(s): I95.9 - Hypotension, unspecified Status: Acute Assessment and Plan: Likely secondary to heavy sedation. Will discuss recent propofol. Start Levophed. Diuretics. Plan DVT prophylaxis: Heparin infusion Stress ulcer prophylaxis: Protonix (patient does take omeprazole at home) Nutrition: Continue tube feeds at a low rate 10/18: PICC line inserted Case discussed with Pulmonary Dr. Loomis 10/22 Discussed with updated patient's the son at bedside and answered all his questions. I explained him that patient was not accepted by [facility] yesterday. I explained him that I am willing to give them a call again for transfer if they want patient to be transferred to [facility]. Patient's son does not want transfer this time and would like to think more about it. 10/23 spoke to and updated patient's daughter at bedside. I answered all questions. Code Status: Full code. Prognosis is guarded with high risk of mortality Spoke to Dr. Patel with medical ICU at [facility] Hospital discuss case with her and requested evaluation for [facility] ECMO. Patient's son agreeable for transfer. She reviewed the case and has accepted the patient. Patient will be transferred once bed is available. She is not sure patient is a candidate for [facility] ECMO but they will do further evaluation once patient gets there. Patient's family updated Critical Care Time Spent: 45 minutes Due to a high probability of clinically significant, life threatening deterioration, the patient required my highest level of preparedness to intervene emergently and I personally spent this critical care time directly and personally managing the patient. This critical care time included obtaining a h istory; examining the patient; pulse oximetry; ordering and review of studies; arranging urgent treatment with development of a management plan; evaluation of patient's response to treatment; frequent reassessment; and discussions with other providers. It was exclusive of separately billable procedures and treating other patients and teaching time. Please see Assessment and Plan section and the rest of the note for further information on patient assessment and treatment This dictation may have been done utilizing a voice recognition system. Attempts have been made to correct errors. However, there may be uncorrected grammatical, spelling, and recognitions errors present. Subjective Date/time seen: 10/23/25 Overnight events reviewed. Afebrile Continues to be on mechanical ventilation overnight FiO2 had to be increased to 75% after patient received bath. On peep of 10 Continues to be on Levophed at 3 mics Continues to be sedated with propofol fentanyl and Versed and paralyzed with Nimbex infusion Good urine output in response to Lasix. Other Vitals acceptable Interval history: Reason for consult: Acute respiratory failure, pneumonia/pneumonitis, pulmonary embolism, presented to the ED on 10/16/2025 with complaints of cough, shortness of breath 10/18: Intubated Review of Systems Review of Systems: ROS unobtainable: Yes unobtainable due to endotracheal tube, unobtainable due to medical condition and unobtainable due to mental status Exam Narrative: General: Intubated on sedation, and chemical paralysis HEENT:? Pupils equal and reactive, sclera is clear Neck:? subcutaneous emphysema with crepitation Respiratory:? Coarse breath sounds diffusely, no wheezing, decreased at bases Cardiac:? S1-S2 is normal, regular rate and rhythm Abdomen:? Soft, nontender, nondistended, hypoactive bowel sounds Extremities:? Pitting edema bilateral lower extremities Neuro:? Intubated, sedated and chemically paralyzed, PERRL Skin:? No skin lesions noted Psych:? Unable to assess at this time Objective Data Vital Signs Vital Signs: Vital Signs - 24 hr 10/22/25 10:00 10/22/25 10:00 10/22/25 10:00 Temperature 36.4 C Pulse Rate 104 H 98 103 H Respiratory Rate 18 18 Blood Pressure 110/69 Pulse Oximetry 98 Oxygen Delivery Fraction of Inspired Oxygen 10/22/25 10:00 10/22/25 10:00 10/22/25 10:00 Temperature Pulse Rate 103 H 103 H 103 H Respiratory Rate 18 18 18 Blood Pressure 110/69 Pulse Oximetry Oxygen Delivery Fraction of Inspired Oxygen 10/22/25 10:00 10/22/25 10:10 10/22/25 10:10 Temperature Pulse Rate 103 H 104 H 104 H Respiratory Rate 18 18 Blood Pressure 100/69 110/69 110/69 Pulse Oximetry Oxygen Delivery Fraction of Inspired Oxygen 10/22/25 10:55 10/22/25 11:00 10/22/25 11:26 Temperature 36.7 C Pulse Rate 95 97 103 H Respiratory Rate 18 18 Blood Pressure 111/70 Pulse Oximetry 99 98 Oxygen Delivery Mechanical Ventilation Fraction of Inspired Oxygen 60 10/22/25 11:41 10/22/25 12:00 10/22/25 12:00 Temperature Pulse Rate 96 96 95 Respiratory Rate 18 Blood Pressure Pulse Oximetry Oxygen Delivery Fraction of Inspired Oxygen 60 10/22/25 12:00 10/22/25 12:00 10/22/25 12:00 Temperature 36.8 C Pulse Rate 94 93 Respiratory Rate 18 18 Blood Pressure 115/74 Pulse Oximetry 94 Oxygen Delivery Fraction of Inspired Oxygen 65 10/22/25 12:00 10/22/25 12:00 10/22/25 12:00 Temperature Pulse Rate 93 93 93 Respiratory Rate 18 18 18 Blood Pressure 115/74 Pulse Oximetry Oxygen Delivery Fraction of Inspired Oxygen 10/22/25 12:00 10/22/25 13:47 10/22/25 13:48 Temperature Pulse Rate 93 98 99 Respiratory Rate 18 18 Blood Pressure 115/74 Pulse Oximetry Oxygen Delivery Fraction of Inspired Oxygen 10/22/25 13:48 10/22/25 13:51 10/22/25 13:54 Temperature Pulse Rate 99 98 101 H Respiratory Rate 18 18 Blood Pressure Pulse Oximetry 95 Oxygen Delivery Mechanical Ventilation Fraction of Inspired Oxygen 60 10/22/25 14:00 10/22/25 14:00 10/22/25 14:00 Temperature 37.1 C Pulse Rate 102 H 98 102 H Respiratory Rate 18 18 Blood Pressure 110/71 Pulse Oximetry 95 Oxygen Delivery Fraction of Inspired Oxygen 10/22/25 14:00 10/22/25 14:00 10/22/25 14:00 Temperature Pulse Rate 102 H 102 H 102 H Respiratory Rate 18 18 18 Blood Pressure 110/71 Pulse Oximetry Oxygen Delivery Fraction of Inspired Oxygen 10/22/25 14:00 10/22/25 14:35 10/22/25 14:40 Temperature Pulse Rate 102 H 101 H 101 H Respiratory Rate 18 18 Blood Pressure 110/71 112/74 112/74 Pulse Oximetry Oxygen Delivery Fraction of Inspired Oxygen 10/22/25 14:41 10/22/25 14:41 10/22/25 15:00 Temperature 37.1 C Pulse Rate 98 98 100 Respiratory Rate 18 18 18 Blood Pressure 112/73 Pulse Oximetry 95 Oxygen Delivery Fraction of Inspired Oxygen 10/22/25 16:00 10/22/25 16:00 10/22/25 16:00 Temperature Pulse Rate 103 H 104 H 103 H Respiratory Rate 18 18 Blood Pressure 118/75 Pulse Oximetry Oxygen Delivery Fraction of Inspired Oxygen 10/22/25 16:00 10/22/25 16:00 10/22/25 16:00 Temperature 37.2 C Pulse Rate 106 H 104 H 102 H Respiratory Rate 18 18 18 Blood Pressure 116/64 118/75 Pulse Oximetry 96 Oxygen Delivery Fraction of Inspired Oxygen 10/22/25 16:00 10/22/25 16:00 10/22/25 16:00 Temperature Pulse Rate 105 H Respiratory Rate Blood Pressure Pulse Oximetry 96 Oxygen Delivery Fraction of Inspired Oxygen 65 10/22/25 17:00 10/22/25 17:48 10/22/25 18:00 Temperature 37.3 C Pulse Rate 107 H 107 H 102 H Respiratory Rate 18 Blood Pressure 109/73 Pulse Oximetry 96 96 Oxygen Delivery Mechanical Ventilation Fraction of Inspired Oxygen 60 10/22/25 18:00 10/22/25 18:00 10/22/25 18:00 Temperature Pulse Rate 103 H 106 H 104 H Respiratory Rate 19 18 18 Blood Pressure Pulse Oximetry Oxygen Delivery Fraction of Inspired Oxygen 10/22/25 18:00 10/22/25 18:00 10/22/25 18:00 Temperature Pulse Rate 104 H 104 H 101 H Respiratory Rate 18 18 Blood Pressure 123/83 123/83 114/78 Pulse Oximetry 96 Oxygen Delivery Fraction of Inspired Oxygen 10/22/25 18:46 10/22/25 18:46 10/22/25 19:00 Temperature Pulse Rate 102 H 102 H 98 Respiratory Rate 18 18 18 Blood Pressure 124/77 124/77 115/80 Pulse Oximetry 96 Oxygen Delivery Fraction of Inspired Oxygen 10/22/25 20:00 10/22/25 20:00 10/22/25 20:00 Temperature 37.5 C Pulse Rate 100 102 H 103 H Respiratory Rate 18 18 Blood Pressure 117/74 117/74 117/74 Pulse Oximetry 96 Oxygen Delivery Fraction of Inspired Oxygen 10/22/25 20:00 10/22/25 20:00 10/22/25 20:00 Temperature Pulse Rate 103 H 103 H 101 H Respiratory Rate 18 18 Blood Pressure Pulse Oximetry Oxygen Delivery Fraction of Inspired Oxygen 10/22/25 20:09 10/22/25 20:11 10/22/25 20:23 Temperature Pulse Rate 99 99 106 H Respiratory Rate 20 20 Blood Pressure Pulse Oximetry 96 Oxygen Delivery Mechanical Ventilation Fraction of Inspired Oxygen 60 10/22/25 20:24 10/22/25 20:25 10/22/25 20:25 Temperature Pulse Rate 103 H 103 H Respiratory Rate 18 18 Blood Pressure Pulse Oximetry Oxygen Delivery Fraction of Inspired Oxygen 60 10/22/25 20:25 10/22/25 20:28 10/22/25 20:30 Temperature 37.6 C Pulse Rate 103 H 103 H 103 H Respiratory Rate 18 18 Blood Pressure 123/77 123/77 Pulse Oximetry 96 96 Oxygen Delivery Mechanical Ventilation Fraction of Inspired Oxygen 60 10/22/25 20:31 10/22/25 20:45 10/22/25 21:00 Temperature 37.6 C 37.6 C H 37.2 C Pulse Rate 103 H 115 H 115 H Respiratory Rate 18 18 18 Blood Pressure 116/73 121/74 105/72 Pulse Oximetry 96 96 96 Oxygen Delivery Fraction of Inspired Oxygen 10/22/25 22:00 10/22/25 22:00 10/22/25 22:00 Temperature Pulse Rate 113 H 113 H 113 H Respiratory Rate 18 18 18 Blood Pressure Pulse Oximetry Oxygen Delivery Fraction of Inspired Oxygen 10/22/25 22:00 10/22/25 22:00 10/22/25 22:00 Temperature Pulse Rate 113 H 113 H 113 H Respiratory Rate 18 Blood Pressure 111/70 111/70 Pulse Oximetry Oxygen Delivery Fraction of Inspired Oxygen 10/22/25 22:00 10/22/25 22:20 10/22/25 23:00 Temperature 37.6 C H 37.6 C Pulse Rate 113 H 112 H 115 H Respiratory Rate 18 18 Blood Pressure 111/70 108/70 Pulse Oximetry 95 95 93 Oxygen Delivery Mechanical Ventilation Fraction of Inspired Oxygen 60 10/22/25 23:30 10/22/25 23:30 10/22/25 23:53 Temperature Pulse Rate 113 H 113 H 117 H Respiratory Rate 18 18 18 Blood Pressure 105/70 105/70 Pulse Oximetry 94 Oxygen Delivery Mechanical Ventilation Fraction of Inspired Oxygen 60 10/22/25 23:57 10/23/25 00:00 10/23/25 00:00 Temperature 37.5 C Pulse Rate 116 H 118 H Respiratory Rate 18 18 Blood Pressure 103/70 Pulse Oximetry 94 Oxygen Delivery Fraction of Inspired Oxygen 60 10/23/25 00:00 10/23/25 00:00 10/23/25 00:00 Temperature Pulse Rate 116 H 116 H 116 H Respiratory Rate 18 18 18 Blood Pressure 103/70 Pulse Oximetry Oxygen Delivery Fraction of Inspired Oxygen 10/23/25 00:00 10/23/25 00:00 10/23/25 00:05 Temperature Pulse Rate 116 H 117 H 117 H Respiratory Rate 18 Blood Pressure 103/70 Pulse Oximetry Oxygen Delivery Fraction of Inspired Oxygen 10/23/25 00:05 10/23/25 00:07 10/23/25 00:07 Temperature Pulse Rate 117 H 117 H 117 H Respiratory Rate 18 18 18 Blood Pressure Pulse Oximetry Oxygen Delivery Fraction of Inspired Oxygen 10/23/25 01:00 10/23/25 01:02 10/23/25 01:04 Temperature 37.7 C H Pulse Rate 117 H 117 H 117 H Respiratory Rate 18 18 Blood Pressure 99/69 L Pulse Oximetry 94 94 Oxygen Delivery Mechanical Ventilation Fraction of Inspired Oxygen 60 10/23/25 01:15 10/23/25 02:00 10/23/25 02:00 Temperature 37.7 C H Pulse Rate 114 H 115 H 116 H Respiratory Rate 18 18 Blood Pressure 103/68 Pulse Oximetry 94 Oxygen Delivery Fraction of Inspired Oxygen 10/23/25 02:00 10/23/25 02:00 10/23/25 02:00 Temperature Pulse Rate 115 H 115 H 115 H Respiratory Rate 18 18 18 Blood Pressure 103/68 Pulse Oximetry Oxygen Delivery Fraction of Inspired Oxygen 10/23/25 02:00 10/23/25 02:00 10/23/25 03:00 Temperature 37.7 C H Pulse Rate 115 H 115 H 114 H Respiratory Rate 18 18 Blood Pressure 103/68 97/67 L Pulse Oximetry 94 Oxygen Delivery Fraction of Inspired Oxygen 10/23/25 03:56 10/23/25 03:58 10/23/25 04:00 Temperature 37.6 C H Pulse Rate 114 H 111 H Respiratory Rate 18 18 Blood Pressure 83/51 L Pulse Oximetry 86 L 86 L Oxygen Delivery Mechanical Ventilation Fraction of Inspired Oxygen 60 75 10/23/25 04:00 10/23/25 04:00 10/23/25 04:00 Temperature Pulse Rate 110 H 111 H 111 H Respiratory Rate 18 18 Blood Pressure 81/53 L Pulse Oximetry Oxygen Delivery Fraction of Inspired Oxygen 10/23/25 04:00 10/23/25 04:00 10/23/25 04:00 Temperature Pulse Rate 111 H 111 H 110 H Respiratory Rate 18 18 Blood Pressure 83/51 L Pulse Oximetry Oxygen Delivery Fraction of Inspired Oxygen 10/23/25 04:00 10/23/25 04:12 10/23/25 04:12 Temperature Pulse Rate 102 H 110 H 110 H Respiratory Rate 18 18 18 Blood Pressure Pulse Oximetry Oxygen Delivery Fraction of Inspired Oxygen 10/23/25 04:12 10/23/25 04:12 10/23/25 04:16 Temperature Pulse Rate 110 H 110 H 110 H Respiratory Rate 18 18 Blood Pressure 86/54 L 86/54 L 80/53 L Pulse Oximetry Oxygen Delivery Fraction of Inspired Oxygen 10/23/25 04:16 10/23/25 04:25 10/23/25 04:26 Temperature 37.6 C 37.4 C Pulse Rate 110 H 100 100 Respiratory Rate 18 18 Blood Pressure 80/53 L 118/75 118/75 Pulse Oximetry 94 95 Oxygen Delivery Fraction of Inspired Oxygen 10/23/25 04:30 10/23/25 04:59 10/23/25 05:00 Temperature 37.3 C 37.2 C Pulse Rate 103 H 115 H 101 H Respiratory Rate 18 18 Blood Pressure 109/67 103/68 Pulse Oximetry 94 95 94 Oxygen Delivery Mechanical Ventilation Fraction of Inspired Oxygen 75 10/23/25 06:00 10/23/25 06:00 10/23/25 06:00 Temperature Pulse Rate 102 H 102 H 102 H Respiratory Rate 18 18 18 Blood Pressure 97/66 L Pulse Oximetry Oxygen Delivery Fraction of Inspired Oxygen 10/23/25 06:00 10/23/25 06:00 10/23/25 06:00 Temperature 37.3 C Pulse Rate 102 H 99 102 H Respiratory Rate 18 Blood Pressure 97/66 L 97/66 L Pulse Oximetry 94 Oxygen Delivery Fraction of Inspired Oxygen 10/23/25 07:00 10/23/25 08:00 10/23/25 08:00 Temperature 37.4 C 37.5 C Pulse Rate 110 H 112 H Respiratory Rate 18 18 Blood Pressure 97/67 L 101/66 Pulse Oximetry 94 94 Oxygen Delivery Fraction of Inspired Oxygen 75 10/23/25 08:00 10/23/25 08:00 10/23/25 08:00 Temperature Pulse Rate 112 H 112 H Respiratory Rate 18 18 Blood Pressure Pulse Oximetry 91 Oxygen Delivery Mechanical Ventilation Fraction of Inspired Oxygen 75 10/23/25 08:00 10/23/25 08:30 10/23/25 08:41 Temperature Pulse Rate 112 H 114 H 114 H Respiratory Rate 18 18 18 Blood Pressure 101/66 Pulse Oximetry Oxygen Delivery Fraction of Inspired Oxygen 10/23/25 08:50 10/23/25 09:00 10/23/25 09:03 Temperature 37.7 C H Pulse Rate 121 H 125 H 126 H Respiratory Rate 18 18 Blood Pressure 95/68 L Pulse Oximetry 93 93 Oxygen Delivery Mechanical Ventilation Fraction of Inspired Oxygen 75 10/23/25 09:08 10/23/25 09:15 10/23/25 09:15 Temperature Pulse Rate 123 H 119 H 119 H Respiratory Rate 18 18 18 Blood Pressure Pulse Oximetry Oxygen Delivery Fraction of Inspired Oxygen 10/23/25 09:15 Temperature Pulse Rate Respiratory Rate Blood Pressure Pulse Oximetry Oxygen Delivery Mechanical Ventilation Fraction of Inspired Oxygen Intake/Output Intake/Output: Intake & Output 10/20/25 10/21/25 10/22/25 10/23/25 23:59 23:59 23:59 23:59 Intake Total 2831.9 3455.6 3811.7 1346.5 Output Total 800 1400 4275 950 Balance 2031.9 2055.6 -463.3 396.5 Meds/Results Medications: Active Medications Generic Name Dose Route Start Last Admin Trade Name Freq PRN Reason Stop Dose Admin Acetaminophen 650 mg 10/16/25 19:07 Acetaminophen 325 Mg Tablet PO Q4H PRN Mild Pain (1-3) or Fever Albuterol/Ipratropium 3 ml 10/17/25 14:00 10/23/25 08:40 Ipratropium 0.5 Mg/Albuterol Sulfate 2.5 Mg (Base) Ampul.Neb 3 Ml INHALATION 3 ml Q6HRT [facility] Administration Budesonide 0.5 mg 10/17/25 09:50 10/23/25 08:40 Budesonide Respule Neb 0.5 Mg/2 Ml Amp INHALATION 0.5 mg Q12HRT [facility] Administration Dextrose 12.5 gm 10/19/25 07:37 Dextrose 50% 25 Gm/50 Ml Syringe IV PUSH PRN PRN Hypoglycemia Protocol Docusate Sodium 100 mg 10/17/25 09:00 Docusate Sodium 100 Mg Capsule PO On Hold: 10/17/25 09:00 Q12HR [facility] Furosemide 80 mg 10/23/25 09:00 10/23/25 08:58 Furosemide Inj 100 Mg/10 Ml Vial IV PUSH 10/23/25 17:01 80 mg BID [facility] Administration Glucagon 1 mg 10/19/25 07:37 Glucagon For Inj 1 Mg Vial IM PRN PRN Hypoglycemia Protocol Glucose 15 gm 10/19/25 07:37 Glucose Oral Gel 15 Gm Of Glucse In 37.5 Gm Tube PO PRN PRN Hypoglycemia Protocol Heparin Sodium (Porcine) 4,000 units 10/17/25 01:19 10/21/25 13:49 Heparin Sodium 5,000 Units/Ml Vial IV PUSH 4,000 units PRN PRN Administration aPTT less than 55 seconds Heparin Sodium (Porcine) 2,500 units 10/17/25 01:19 10/21/25 06:15 Heparin Sodium 5,000 Units/Ml Vial IV PUSH 2,500 units PRN PRN Administration aPTT 55 - 70 seconds Heparin Sodium/Dextrose 25,000 units in 250 mls @ 10 mls/hr 10/17/25 01:19 10/23/25 07:25 Heparin Sodium/D5w 100 Units/Ml IV CONT 1,000 units/hr .Q24H [facility] 10 mls/hr Protocol Titration 1,000 UNITS/HR Meropenem 1 gm/ Sodium 100 mls @ 200 mls/hr 10/17/25 18:00 10/23/25 05:50 Chloride IVPB 200 mls/hr Q12H [facility] Administration Doxycycline Hyclate 100 mg/ 100 mls @ 100 mls/hr 10/17/25 21:00 10/23/25 08:58 Sodium Chloride IVPB 100 mls/hr Q12H [facility] Administration Fentanyl Citrate 2,500 mcg in 250 mls @ 20 mls/hr 10/18/25 09:20 10/23/25 06:00 Fentanyl 2,500 Mcg/Ns 250 Ml IV CONT 200 mcg/hr .[id number] [facility] 20 mls/hr Protocol Titration 200 MCG/HR Midazolam HCl 100 mg in 100 mls @ 10 mls/hr 10/18/25 09:20 10/23/25 09:15 Versed 100 Mg/Ns 100 Ml IV CONT 10 mg/hr .Q10H [facility] 10 mls/hr Protocol Administration Dextrose 1,000 mls @ 100 mls/hr 10/19/25 07:37 Dextrose 5% 1,000 Ml IVPB PRN PRN Hypoglycemia Protocol Propofol 100 mls @ 13.59 mls/hr 10/19/25 10:25 10/23/25 09:08 Diprivan IV CONT 30 mcg/kg/min .Q7H22M [facility] 13.59 mls/hr Protocol Titration 30 MCG/KG/MIN Cisatracurium Besylate 200 mg/ 100 mls @ 20.385 mls/hr 10/21/25 13:00 10/23/25 08:00 Sodium Chloride IV CONT 9.5 mcg/kg/min .Q4H55M [facility] 21.52 mls/hr Protocol Titration 9 MCG/KG/MIN Trimethoprim/Sulfamethoxazole 523.6 mls @ 261.8 mls/hr 10/21/25 14:00 10/23/25 05:59 23.6 ml/ Dextrose IVPB 261.8 mls/hr Q8H [facility] Administration Norepinephrine Bitartrate 8 mg in 250 mls @ 5.625 mls/hr 10/22/25 08:50 10/23/25 06:00 Levophed 8 Mg/D5w 250 Ml IV CONT 3 mcg/min .Q24H [facility] 5.63 mls/hr Protocol Titration 3 MCG/MIN Insulin Aspart 3 - 6 units 10/19/25 12:00 10/23/25 06:16 Insulin Aspart (*Bkc) 100 Units/Ml SUB-Q Not Given Q6HR [facility] Protocol Levothyroxine Sodium 50 mcg 10/17/25 06:30 10/23/25 05:50 Levothyroxine Sodium 50 Mcg Tablet PO 50 mcg DAILY@0630 [facility] Administration Methylprednisolone Sodium Succinate 40 mg 10/22/25 21:00 10/23/25 08:55 Methylprednisolone Sod Succ 40 Mg Vial IV PUSH 40 mg Q12H [facility] Administration Midazolam HCl 4 mg 10/22/25 08:21 10/23/25 09:13 Midazolam Hcl (*Crx) 2 Mg/2 Ml Vial IV PUSH 4 mg Q1H PRN Administration Agitation while on ventilator Multi-Ingred Cream/Lotion/Oil/Oint 1 applic 10/18/25 21:00 10/22/25 20:25 Mineral Oil/White Petrolatum Ointment EACH EYE 1 applic Q12HR [facility] Administration Ondansetron HCl 4 mg 10/17/25 07:51 10/18/25 06:55 Ondansetron Inj 4 Mg/2 Ml Vial IV PUSH 4 mg Q6H PRN Administration Nausea And Vomiting Pantoprazole Sodium 40 mg 10/18/25 09:00 10/23/25 08:56 Pantoprazole Sodium Iv 40 Mg Vial IV PUSH 40 mg QAM [facility] Administration Pravastatin Sodium 40 mg 10/16/25 19:05 10/23/25 08:55 Pravastatin Sodium 20 Mg Tablet BY MOUTH 40 mg DAILY [facility] Administration Sodium Chloride 10 ml 10/18/25 14:00 10/23/25 05:50 Central Line Flush IV PUSH 10 ml Q8HR [facility] Administration Sodium Chloride 10 ml 10/18/25 10:10 Central Line Flush IV PUSH PRN PRN with TPN bag changes Sodium Chloride 20 ml 10/18/25 10:10 10/20/25 05:27 Central Line Flush IV PUSH 20 ml PRN PRN Administration after blood draws Radiology Results: ITS Impressions Chest CTA 10/16/25 16:25 IMPRESSION: 1. Pulmonary emboli in subsegmental pulmonary arteries in the bilateral basilar lower lobes with relatively low clot burden and without evident right heart strain. Dr. French discussed these findings with Dr. Guadalupe at 4:40 PM. 2. Diffuse bilateral lung disease suspicious for atypical pneumonia with appearance similar to COVID pneumonia as manifest during the early stages of the pandemic. 3. Small amount of pneumomediastinum of indeterminate origin. Chest CT 10/21/25 14:20 IMPRESSION: 1. Severe pneumomediastinum with air tracking cephalad into the neck soft tissues resulting in extensive subcutaneous emphysema in the neck, and lies right-sided chest wall. 2. Multifocal consolidative changes and trace bilateral pleural effusions with overall worse appearance compared to October 16 exam. 3. Other findings as above. Venous Doppler Study 10/22/25 12:07 IMPRESSION: 1. Somewhat limited examination with no deep venous thrombosis identified. Chest X-Ray 10/23/25 08:26 IMPRESSION: 1. No significant change or worsening. Labs Labs: Laboratory Results - last 24 hr 10/22/25 10/22/25 10/22/25 09:23 11:10 11:50 WBC RBC Hgb Hct MCV MCH MCHC RDW Plt Count MPV Immature Gran % (Auto) Neut % (Auto) Lymph % (Auto) Mchenry % (Auto) Eos % (Auto) Baso % (Auto) Lymph # (Auto) Mchenry # (Auto) Eos # (Auto) Baso # (Auto) Abs Immat Gran (auto) Absolute Neuts (auto) Absolute Nucleated RBC Band Neutrophils % Nucleated RBC % Platelet Estimate Anisocytosis Macrocytosis Schistocytes APTT 99.2 H Puncture Site ABG pH ABG pCO2 ABG pO2 ABG PO2/FiO2 Ratio ABG HCO3 ABG O2 Saturation ABG O2 Content ABG Base Excess A-a Gradient Oxyhemoglobin Carboxyhemoglobin Methemoglobin Reduced Hemoglobin Total Hemoglobin O2 Delivery Device O2 Liters/Min Minute Volume Vent Rate Vent Mode FiO2 Tidal Volume PEEP Peak Inspir Pressure Pressure Support Sodium Potassium Chloride Carbon Dioxide Anion Gap BUN Creatinine Estim Creat Clear Calc Estimated GFR Glucose POC Capillary Glucose 118 H Calcium Phosphorus Magnesium Total Bilirubin AST ALT Alkaline Phosphatase NT-Pro-B Natriuret Pep 324 H Total Protein Albumin Triglycerides 10/22/25 10/22/25 10/22/25 17:32 18:42 23:35 WBC RBC Hgb Hct MCV MCH MCHC RDW Plt Count MPV Immature Gran % (Auto) Neut % (Auto) Lymph % (Auto) Mchenry % (Auto) Eos % (Auto) Baso % (Auto) Lymph # (Auto) Mchenry # (Auto) Eos # (Auto) Baso # (Auto) Abs Immat Gran (auto) Absolute Neuts (auto) Absolute Nucleated RBC Band Neutrophils % Nucleated RBC % Platelet Estimate Anisocytosis Macrocytosis Schistocytes APTT 102.7 H Puncture Site ABG pH ABG pCO2 ABG pO2 ABG PO2/FiO2 Ratio ABG HCO3 ABG O2 Saturation ABG O2 Content ABG Base Excess A-a Gradient Oxyhemoglobin Carboxyhemoglobin Methemoglobin Reduced Hemoglobin Total Hemoglobin O2 Delivery Device O2 Liters/Min Minute Volume Vent Rate Vent Mode FiO2 Tidal Volume PEEP Peak Inspir Pressure Pressure Support Sodium Potassium Chloride Carbon Dioxide Anion Gap BUN Creatinine Estim Creat Clear Calc Estimated GFR Glucose POC Capillary Glucose 108 H 102 Calcium Phosphorus Magnesium Total Bilirubin AST ALT Alkaline Phosphatase NT-Pro-B Natriuret Pep Total Protein Albumin Triglycerides 10/23/25 10/23/25 04:31 04:35 WBC 12.4 H RBC 2.66 L Hgb 10.6 L Hct 30.7 L MCV 115.4 H MCH 39.8 H MCHC 34.5 RDW 14.8 H Plt Count 148 L MPV 10.4 Immature Gran % (Auto) 4.6 H Neut % (Auto) 78.9 H Lymph % (Auto) 8.9 L Mchenry % (Auto) 6.4 Eos % (Auto) 0.8 Baso % (Auto) 0.4 Lymph # (Auto) 1.10 Mchenry # (Auto) 0.8 H Eos # (Auto) 0.1 Baso # (Auto) 0.1 Abs Immat Gran (auto) 0.57 H Absolute Neuts (auto) 9.8 H Absolute Nucleated RBC 0.310 H Band Neutrophils % Not Reportable Nucleated RBC % 2.5 H Platelet Estimate Slightly decreased Anisocytosis 1+ Macrocytosis 1+ Schistocytes None seen APTT 74.7 H Puncture Site Left radial ABG pH 7.407 ABG pCO2 56.9 H ABG pO2 79.3 L ABG PO2/FiO2 Ratio Not Reportable ABG HCO3 35.0 H ABG O2 Saturation 95.5 ABG O2 Content 35.0 H ABG Base Excess 8.7 A-a Gradient 14.9 Oxyhemoglobin 93.5 Carboxyhemoglobin 1.5 Methemoglobin 0.3 Reduced Hemoglobin 4.7 Total Hemoglobin 11.3 L O2 Delivery Device Ventilator O2 Liters/Min Not Reportable Minute Volume Not Reportable Vent Rate 18 Vent Mode Cmv FiO2 75 Tidal Volume 350 PEEP 10 Peak Inspir Pressure Not Reportable Pressure Support Not Reportable Sodium 130 L Potassium 3.9 Chloride 96 L Carbon Dioxide 37 H Anion Gap -3 L BUN 25 H D Creatinine 0.77 Estim Creat Clear Calc 67 Estimated GFR > 60 Glucose 92 POC Capillary Glucose Calcium 7.1 L Phosphorus 3.1 Magnesium 2.5 H Total Bilirubin 0.3 AST 37 H ALT 43 H Alkaline Phosphatase 200 H NT-Pro-B Natriuret Pep Total Protein 5.2 L Albumin 2.5 L Triglycerides 142
[2025-10-23] MEDS: MINERAL OIL/WHITE PETROLATUM OINTMENT 1 APPLIC EACH EYE (10:05)
--- NOTE | 2025-10-23 10:46 | PCFNICU ---
ICU Rounding Note: Pt current nutrition is Vital AF 1.2 at 20ml/hr. Last recorded weight is 81.8 kg. Bowel Motility: No BM reported. Labs Reviewed: BUN 25, Na 130, Alb 2.5, Hct 30.7, Hgb 10.6 Meds Noted: Propofol 30 gcwy=698 kcal, Protonix, Nimbex, Fentanyl, Versed, Levophed, Lasix Skin: WNL Additional Notes: Patient remains on mechanical vent. Tube feedings are being tolerated of Vital AF 1.2 at 20 ml/hr. Total Nutrition at goal rate of 55 ml/hr including Propofol infusion: 1811 kcal/91 g protein/981 ml water. Flush 30 ml q 4 hours. Following daily in ICU rounds. Monitoring tube feeding rate, tolerance, weights, labs, output, plan of care Follow up Tuesday /Tuesday.
[2025-10-23] MEDS: PROPOFOL IV EMULSION 100 ML 13.59 MG IV CONT ×2 (11:14→16:33)
--- NOTE | 2025-10-23 12:54 | WPDPROCEDUR ---
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 Despite multiple attempts I was unable to advance guidewire to a sufficient depth. Guidewire was bent when removed. Small hematoma around artery. On ultrasound. Procedure was aborted
--- NOTE | 2025-10-23 12:55 | P.PCNBED_ITS ---
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 Twice I was able to access artery with pulsatile flow but unable to advance guidewire to sufficient depth. Guidewire was bent when removed. Procedure aborted. Small hematoma around artery on ultrasound. Pressure was held
[2025-10-23] MEDS: NOREPINEPHRINE 8 MG/D5W 250 ML 8 MG/250 ML BAG 13.13 MG IV CONT (16:32)
--- NOTE | 2025-10-23 17:10 | PC.NURSE ---
Air evac team arrived. Report given, all questions answered. Air evac team left unit with patient at 1710.
--- NOTE | 2025-10-23 17:19 | P.PNINF_ITS ---
Progress Note: A&P Assessment and Plan (1) Bilateral pneumonia: Code(s): J18.9 - Pneumonia, unspecified organism Status: Acute Plan ASSESSMENT: 1. pneumonia/pneumonitis; r/o infectious etiology vs medication related 2. acute respiratory failure; intubated; strep pneumo neg; legionella neg; MRSA nares neg; +pulmonary embolus 3. immunocompromised host 4. breast cancer 5. HTN, HL 6. anxiety, depression RECOMMENDAITONS: -high dose bactrim, meropenem, doxycycline -steroids per pulm -f/u BAL studies--in process -blood cxs NGTD -fungitell -supportive care--possible transfer to [facility] for ECMO d/w pharmacy staff Pt was seen via video telehealth consultation with the assistance of staff. Chart, data and patient info reviewed. Patient was located at [facility] while I was in my [place] office. Subjective Date/time seen: 10/23/25 17:19 Interval history: low grade temps mild leukocytosis possible transfer to [facility] for ECMO On a pressor diruesing Exam Narrative: in ICU, proned, paralyzed, sedated Cor: tachy, reg minimal blood tinged secretions; FiO2=75 and PEEP=12 LUE PICC mottling of skin Objective Data Vital Signs Vital Signs: Vital Signs - 24 hr 10/22/25 17:48 10/22/25 18:00 10/22/25 18:00 Temperature Pulse Rate 107 H 102 H 103 H Respiratory Rate 19 Blood Pressure Pulse Oximetry 96 Oxygen Delivery Mechanical Ventilation Fraction of Inspired Oxygen 60 10/22/25 18:00 10/22/25 18:00 10/22/25 18:00 Temperature Pulse Rate 106 H 104 H 104 H Respiratory Rate 18 18 18 Blood Pressure 123/83 Pulse Oximetry Oxygen Delivery Fraction of Inspired Oxygen 10/22/25 18:00 10/22/25 18:00 10/22/25 18:46 Temperature Pulse Rate 104 H 101 H 102 H Respiratory Rate 18 18 Blood Pressure 123/83 114/78 124/77 Pulse Oximetry 96 Oxygen Delivery Fraction of Inspired Oxygen 10/22/25 18:46 10/22/25 19:00 10/22/25 20:00 Temperature 99.5 F Pulse Rate 102 H 98 100 Respiratory Rate 18 18 18 Blood Pressure 124/77 115/80 117/74 Pulse Oximetry 96 96 Oxygen Delivery Fraction of Inspired Oxygen 10/22/25 20:00 10/22/25 20:00 10/22/25 20:00 Temperature Pulse Rate 102 H 103 H 103 H Respiratory Rate 18 18 Blood Pressure 117/74 117/74 Pulse Oximetry Oxygen Delivery Fraction of Inspired Oxygen 10/22/25 20:00 10/22/25 20:00 10/22/25 20:09 Temperature Pulse Rate 103 H 101 H 99 Respiratory Rate 18 20 Blood Pressure Pulse Oximetry Oxygen Delivery Fraction of Inspired Oxygen 10/22/25 20:11 10/22/25 20:23 10/22/25 20:24 Temperature Pulse Rate 99 106 H Respiratory Rate 20 Blood Pressure Pulse Oximetry 96 Oxygen Delivery Mechanical Ventilation Fraction of Inspired Oxygen 60 60 10/22/25 20:25 10/22/25 20:25 10/22/25 20:25 Temperature 99.6 F Pulse Rate 103 H 103 H 103 H Respiratory Rate 18 18 18 Blood Pressure 123/77 Pulse Oximetry 96 Oxygen Delivery Fraction of Inspired Oxygen 10/22/25 20:28 10/22/25 20:30 10/22/25 20:31 Temperature 99.6 F Pulse Rate 103 H 103 H 103 H Respiratory Rate 18 18 Blood Pressure 123/77 116/73 Pulse Oximetry 96 96 Oxygen Delivery Mechanical Ventilation Fraction of Inspired Oxygen 60 10/22/25 20:45 10/22/25 21:00 10/22/25 22:00 Temperature 99.7 F H 99 F Pulse Rate 115 H 115 H 113 H Respiratory Rate 18 18 18 Blood Pressure 121/74 105/72 Pulse Oximetry 96 96 Oxygen Delivery Fraction of Inspired Oxygen 10/22/25 22:00 10/22/25 22:00 10/22/25 22:00 Temperature Pulse Rate 113 H 113 H 113 H Respiratory Rate 18 18 18 Blood Pressure 111/70 Pulse Oximetry Oxygen Delivery Fraction of Inspired Oxygen 10/22/25 22:00 10/22/25 22:00 10/22/25 22:00 Temperature 99.7 F H Pulse Rate 113 H 113 H 113 H Respiratory Rate 18 Blood Pressure 111/70 111/70 Pulse Oximetry 95 Oxygen Delivery Fraction of Inspired Oxygen 10/22/25 22:20 10/22/25 23:00 10/22/25 23:30 Temperature 99.6 F Pulse Rate 112 H 115 H 113 H Respiratory Rate 18 18 Blood Pressure 108/70 105/70 Pulse Oximetry 95 93 Oxygen Delivery Mechanical Ventilation Fraction of Inspired Oxygen 60 10/22/25 23:30 10/22/25 23:53 10/22/25 23:57 Temperature Pulse Rate 113 H 117 H Respiratory Rate 18 18 Blood Pressure 105/70 Pulse Oximetry 94 Oxygen Delivery Mechanical Ventilation Fraction of Inspired Oxygen 60 60 10/23/25 00:00 10/23/25 00:00 10/23/25 00:00 Temperature 99.5 F Pulse Rate 116 H 118 H 116 H Respiratory Rate 18 18 18 Blood Pressure 103/70 103/70 Pulse Oximetry 94 Oxygen Delivery Fraction of Inspired Oxygen 10/23/25 00:00 10/23/25 00:00 10/23/25 00:00 Temperature Pulse Rate 116 H 116 H 116 H Respiratory Rate 18 18 Blood Pressure 103/70 Pulse Oximetry Oxygen Delivery Fraction of Inspired Oxygen 10/23/25 00:00 10/23/25 00:05 10/23/25 00:05 Temperature Pulse Rate 117 H 117 H 117 H Respiratory Rate 18 18 Blood Pressure Pulse Oximetry Oxygen Delivery Fraction of Inspired Oxygen 10/23/25 00:07 10/23/25 00:07 10/23/25 01:00 Temperature 99.8 F H Pulse Rate 117 H 117 H 117 H Respiratory Rate 18 18 18 Blood Pressure 99/69 L Pulse Oximetry 94 Oxygen Delivery Fraction of Inspired Oxygen 10/23/25 01:02 10/23/25 01:04 10/23/25 01:15 Temperature Pulse Rate 117 H 117 H 114 H Respiratory Rate 18 18 Blood Pressure Pulse Oximetry 94 Oxygen Delivery Mechanical Ventilation Fraction of Inspired Oxygen 60 10/23/25 02:00 10/23/25 02:00 10/23/25 02:00 Temperature 99.8 F H Pulse Rate 115 H 116 H 115 H Respiratory Rate 18 18 Blood Pressure 103/68 Pulse Oximetry 94 Oxygen Delivery Fraction of Inspired Oxygen 10/23/25 02:00 10/23/25 02:00 10/23/25 02:00 Temperature Pulse Rate 115 H 115 H 115 H Respiratory Rate 18 18 18 Blood Pressure 103/68 Pulse Oximetry Oxygen Delivery Fraction of Inspired Oxygen 10/23/25 02:00 10/23/25 03:00 10/23/25 03:56 Temperature 99.9 F H Pulse Rate 115 H 114 H Respiratory Rate 18 Blood Pressure 103/68 97/67 L Pulse Oximetry 94 Oxygen Delivery Fraction of Inspired Oxygen 60 10/23/25 03:58 10/23/25 04:00 10/23/25 04:00 Temperature 99.7 F H Pulse Rate 114 H 111 H 110 H Respiratory Rate 18 18 Blood Pressure 83/51 L 81/53 L Pulse Oximetry 86 L 86 L Oxygen Delivery Mechanical Ventilation Fraction of Inspired Oxygen 75 10/23/25 04:00 10/23/25 04:00 10/23/25 04:00 Temperature Pulse Rate 111 H 111 H 111 H Respiratory Rate 18 18 18 Blood Pressure 83/51 L Pulse Oximetry Oxygen Delivery Fraction of Inspired Oxygen 10/23/25 04:00 10/23/25 04:00 10/23/25 04:00 Temperature Pulse Rate 111 H 110 H 102 H Respiratory Rate 18 18 Blood Pressure Pulse Oximetry Oxygen Delivery Fraction of Inspired Oxygen 10/23/25 04:12 10/23/25 04:12 10/23/25 04:12 Temperature Pulse Rate 110 H 110 H 110 H Respiratory Rate 18 18 18 Blood Pressure 86/54 L Pulse Oximetry Oxygen Delivery Fraction of Inspired Oxygen 10/23/25 04:12 10/23/25 04:16 10/23/25 04:16 Temperature 99.6 F Pulse Rate 110 H 110 H 110 H Respiratory Rate 18 18 Blood Pressure 86/54 L 80/53 L 80/53 L Pulse Oximetry 94 Oxygen Delivery Fraction of Inspired Oxygen 10/23/25 04:25 10/23/25 04:26 10/23/25 04:30 Temperature 99.3 F 99.1 F Pulse Rate 100 100 103 H Respiratory Rate 18 18 Blood Pressure 118/75 118/75 109/67 Pulse Oximetry 95 94 Oxygen Delivery Fraction of Inspired Oxygen 10/23/25 04:59 10/23/25 05:00 10/23/25 06:00 Temperature 99 F Pulse Rate 115 H 101 H 102 H Respiratory Rate 18 18 Blood Pressure 103/68 Pulse Oximetry 95 94 Oxygen Delivery Mechanical Ventilation Fraction of Inspired Oxygen 75 10/23/25 06:00 10/23/25 06:00 10/23/25 06:00 Temperature Pulse Rate 102 H 102 H 102 H Respiratory Rate 18 18 Blood Pressure 97/66 L 97/66 L Pulse Oximetry Oxygen Delivery Fraction of Inspired Oxygen 10/23/25 06:00 10/23/25 06:00 10/23/25 07:00 Temperature 99.2 F 99.4 F Pulse Rate 99 102 H 110 H Respiratory Rate 18 18 Blood Pressure 97/66 L 97/67 L Pulse Oximetry 94 94 Oxygen Delivery Fraction of Inspired Oxygen 10/23/25 08:00 10/23/25 08:00 10/23/25 08:00 Temperature 99.5 F Pulse Rate 112 H 112 H Respiratory Rate 18 18 Blood Pressure 101/66 Pulse Oximetry 94 Oxygen Delivery Fraction of Inspired Oxygen 75 10/23/25 08:00 10/23/25 08:00 10/23/25 08:00 Temperature Pulse Rate 112 H 112 H Respiratory Rate 18 18 Blood Pressure 101/66 Pulse Oximetry 91 Oxygen Delivery Mechanical Ventilation Fraction of Inspired Oxygen 75 10/23/25 08:00 10/23/25 08:00 10/23/25 08:00 Temperature Pulse Rate 113 H 112 H 112 H Respiratory Rate 18 Blood Pressure 101/66 Pulse Oximetry Oxygen Delivery Fraction of Inspired Oxygen 10/23/25 08:30 10/23/25 08:41 10/23/25 08:50 Temperature Pulse Rate 114 H 114 H 121 H Respiratory Rate 18 18 Blood Pressure Pulse Oximetry 93 Oxygen Delivery Mechanical Ventilation Fraction of Inspired Oxygen 75 10/23/25 09:00 10/23/25 09:03 10/23/25 09:08 Temperature 99.8 F H Pulse Rate 125 H 126 H 123 H Respiratory Rate 18 18 18 Blood Pressure 95/68 L Pulse Oximetry 93 Oxygen Delivery Fraction of Inspired Oxygen 10/23/25 09:15 10/23/25 09:15 10/23/25 09:15 Temperature Pulse Rate 119 H 119 H Respiratory Rate 18 18 Blood Pressure Pulse Oximetry Oxygen Delivery Mechanical Ventilation Fraction of Inspired Oxygen 10/23/25 09:40 10/23/25 09:40 10/23/25 10:00 Temperature Pulse Rate 122 H 122 H 122 H Respiratory Rate 18 18 Blood Pressure 100/71 100/71 Pulse Oximetry Oxygen Delivery Fraction of Inspired Oxygen 10/23/25 10:00 10/23/25 10:00 10/23/25 10:00 Temperature 99.7 F H Pulse Rate 121 H 122 H 122 H Respiratory Rate 18 18 18 Blood Pressure 98/70 L 99/60 L Pulse Oximetry 88 L Oxygen Delivery Fraction of Inspired Oxygen 10/23/25 10:00 10/23/25 10:00 10/23/25 10:00 Temperature Pulse Rate 123 H 123 H 123 H Respiratory Rate 18 18 Blood Pressure 99/60 L Pulse Oximetry Oxygen Delivery Fraction of Inspired Oxygen 10/23/25 11:00 10/23/25 11:14 10/23/25 11:14 Temperature 99.9 F H Pulse Rate 121 H 121 H 121 H Respiratory Rate 18 18 18 Blood Pressure 95/69 L Pulse Oximetry 87 L Oxygen Delivery Fraction of Inspired Oxygen 10/23/25 12:00 10/23/25 12:00 10/23/25 12:00 Temperature 100.1 F H Pulse Rate 121 H 122 H 116 H Respiratory Rate 18 18 18 Blood Pressure 96/73 L 100/81 Pulse Oximetry 89 L Oxygen Delivery Fraction of Inspired Oxygen 10/23/25 12:00 10/23/25 12:00 10/23/25 12:00 Temperature Pulse Rate 123 H Respiratory Rate Blood Pressure 107/73 Pulse Oximetry 92 Oxygen Delivery Mechanical Ventilation Fraction of Inspired Oxygen 75 75 10/23/25 12:00 10/23/25 12:00 10/23/25 12:00 Temperature Pulse Rate 135 H 123 H 123 H Respiratory Rate 18 18 Blood Pressure Pulse Oximetry Oxygen Delivery Fraction of Inspired Oxygen 10/23/25 12:12 10/23/25 12:12 10/23/25 12:54 Temperature Pulse Rate 122 H 122 H 120 H Respiratory Rate 18 18 Blood Pressure Pulse Oximetry 91 Oxygen Delivery Mechanical Ventilation Fraction of Inspired Oxygen 75 10/23/25 13:00 10/23/25 13:35 10/23/25 13:43 Temperature Pulse Rate 118 H 116 H 115 H Respiratory Rate 18 18 Blood Pressure 93/70 L 85/59 L Pulse Oximetry 90 92 Oxygen Delivery Mechanical Ventilation Fraction of Inspired Oxygen 75 10/23/25 13:53 10/23/25 13:59 10/23/25 14:00 Temperature 100.0 F H Pulse Rate 116 H 117 H 116 H Respiratory Rate 18 Blood Pressure 88/56 L 88/56 L Pulse Oximetry 92 Oxygen Delivery Fraction of Inspired Oxygen 10/23/25 14:00 10/23/25 14:00 10/23/25 14:00 Temperature Pulse Rate 116 H 116 H 118 H Respiratory Rate 18 18 Blood Pressure 93/55 L Pulse Oximetry Oxygen Delivery Fraction of Inspired Oxygen 10/23/25 14:00 10/23/25 14:00 10/23/25 14:08 Temperature Pulse Rate 116 H 116 H 117 H Respiratory Rate 18 18 18 Blood Pressure Pulse Oximetry Oxygen Delivery Fraction of Inspired Oxygen 10/23/25 14:16 10/23/25 14:48 10/23/25 15:00 Temperature 99.6 F Pulse Rate 116 H 119 H 121 H Respiratory Rate Blood Pressure 81/50 L 88/56 L 101/62 Pulse Oximetry 92 Oxygen Delivery Fraction of Inspired Oxygen 10/23/25 16:00 10/23/25 16:00 10/23/25 16:00 Temperature Pulse Rate 128 H 128 H Respiratory Rate 18 18 Blood Pressure 100/62 Pulse Oximetry Oxygen Delivery Fraction of Inspired Oxygen 80 10/23/25 16:00 10/23/25 16:00 10/23/25 16:00 Temperature Pulse Rate 128 H 128 H 128 H Respiratory Rate 18 18 Blood Pressure 100/62 Pulse Oximetry Oxygen Delivery Fraction of Inspired Oxygen 10/23/25 16:20 10/23/25 16:22 10/23/25 16:32 Temperature 99.7 F H Pulse Rate 116 H 129 H 130 H Respiratory Rate 18 Blood Pressure 100/62 100/61 Pulse Oximetry 94 93 Oxygen Delivery Mechanical Ventilation Fraction of Inspired Oxygen 80 10/23/25 16:32 10/23/25 16:33 10/23/25 16:33 Temperature Pulse Rate 130 H 130 H 130 H Respiratory Rate 18 18 Blood Pressure 100/61 Pulse Oximetry Oxygen Delivery Fraction of Inspired Oxygen 10/23/25 17:00 Temperature Pulse Rate 127 H Respiratory Rate 18 Blood Pressure 108/60 Pulse Oximetry 97 Oxygen Delivery Fraction of Inspired Oxygen Intake/Output Intake/Output: Intake & Output 10/20/25 10/21/25 10/22/25 10/23/25 23:59 23:59 23:59 23:59 Intake Total 2831.9 3455.6 3811.7 2432.1 Output Total 800 1400 4275 3625 Balance 2031.9 2055.6 -463.3 -1192.9 Meds/Results Medications: Active Medications Generic Name Dose Route Start Last Admin Trade Name Freq PRN Reason Stop Dose Admin Acetaminophen 650 mg 10/16/25 19:07 Acetaminophen 325 Mg Tablet PO Q4H PRN Mild Pain (1-3) or Fever Albuterol/Ipratropium 3 ml 10/17/25 14:00 10/23/25 13:53 Ipratropium 0.5 Mg/Albuterol Sulfate 2.5 Mg (Base) Ampul.Neb 3 Ml INHALATION 3 ml Q6HRT CLARK Administration Budesonide 0.5 mg 10/17/25 09:50 10/23/25 08:40 Budesonide Respule Neb 0.5 Mg/2 Ml Amp INHALATION 0.5 mg Q12HRT CLARK Administration Dextrose 12.5 gm 10/19/25 07:37 Dextrose 50% 25 Gm/50 Ml Syringe IV PUSH PRN PRN Hypoglycemia Protocol Docusate Sodium 100 mg 10/17/25 09:00 Docusate Sodium 100 Mg Capsule PO On Hold: 10/17/25 09:00 Q12HR CLARK Glucagon 1 mg 10/19/25 07:37 Glucagon For Inj 1 Mg Vial IM PRN PRN Hypoglycemia Protocol Glucose 15 gm 10/19/25 07:37 Glucose Oral Gel 15 Gm Of Glucse In 37.5 Gm Tube PO PRN PRN Hypoglycemia Protocol Heparin Sodium (Porcine) 4,000 units 10/17/25 01:19 10/21/25 13:49 Heparin Sodium 5,000 Units/Ml Vial IV PUSH 4,000 units PRN PRN Administration aPTT less than 55 seconds Heparin Sodium (Porcine) 2,500 units 10/17/25 01:19 10/21/25 06:15 Heparin Sodium 5,000 Units/Ml Vial IV PUSH 2,500 units PRN PRN Administration aPTT 55 - 70 seconds Heparin Sodium/Dextrose 25,000 units in 250 mls @ 10 mls/hr 10/17/25 01:19 10/23/25 07:25 Heparin Sodium/D5w 100 Units/Ml IV CONT 1,000 units/hr .Q24H [facility] 10 mls/hr Protocol Titration 1,000 UNITS/HR Meropenem 1 gm/ Sodium 100 mls @ 200 mls/hr 10/17/25 18:00 10/23/25 05:50 Chloride IVPB 200 mls/hr Q12H [facility] Administration Doxycycline Hyclate 100 mg/ 100 mls @ 100 mls/hr 10/17/25 21:00 10/23/25 08:58 Sodium Chloride IVPB 100 mls/hr Q12H [facility] Administration Fentanyl Citrate 2,500 mcg in 250 mls @ 20 mls/hr 10/18/25 09:20 10/23/25 16:00 Fentanyl 2,500 Mcg/Ns 250 Ml IV CONT 200 mcg/hr .[id number] [facility] 20 mls/hr Protocol Titration 200 MCG/HR Midazolam HCl 100 mg in 100 mls @ 10 mls/hr 10/18/25 09:20 10/23/25 16:00 Versed 100 Mg/Ns 100 Ml IV CONT 10 mg/hr .Q10H [facility] 10 mls/hr Protocol Titration Dextrose 1,000 mls @ 100 mls/hr 10/19/25 07:37 Dextrose 5% 1,000 Ml IVPB PRN PRN Hypoglycemia Protocol Propofol 100 mls @ 13.59 mls/hr 10/19/25 10:25 10/23/25 16:33 Diprivan IV CONT 30 mcg/kg/min .Q7H22M [facility] 13.59 mls/hr Protocol Administration 30 MCG/KG/MIN Cisatracurium Besylate 200 mg/ 100 mls @ 20.385 mls/hr 10/21/25 13:00 10/23/25 16:00 Sodium Chloride IV CONT 9.5 mcg/kg/min .Q4H55M [facility] 21.52 mls/hr Protocol Titration 9 MCG/KG/MIN Trimethoprim/Sulfamethoxazole 523.6 mls @ 261.8 mls/hr 10/21/25 14:00 10/23/25 13:45 23.6 ml/ Dextrose IVPB 261.8 mls/hr Q8H [facility] Administration Norepinephrine Bitartrate 8 mg in 250 mls @ 13.125 mls/hr 10/22/25 08:50 10/23/25 16:32 Levophed 8 Mg/D5w 250 Ml IV CONT 7 mcg/min .Q19H3M [facility] 13.13 mls/hr Protocol Administration 7 MCG/MIN Insulin Aspart 3 - 6 units 10/19/25 12:00 10/23/25 14:02 Insulin Aspart (*Bkc) 100 Units/Ml SUB-Q Not Given Q6HR [facility] Protocol Levothyroxine Sodium 50 mcg 10/17/25 06:30 10/23/25 05:50 Levothyroxine Sodium 50 Mcg Tablet PO 50 mcg DAILY@0630 [facility] Administration Methylprednisolone Sodium Succinate 40 mg 10/22/25 21:00 10/23/25 08:55 Methylprednisolone Sod Succ 40 Mg Vial IV PUSH 40 mg Q12H [facility] Administration Midazolam HCl 4 mg 10/22/25 08:21 10/23/25 09:13 Midazolam Hcl (*Crx) 2 Mg/2 Ml Vial IV PUSH 4 mg Q1H PRN Administration Agitation while on ventilator Multi-Ingred Cream/Lotion/Oil/Oint 1 applic 10/18/25 21:00 10/23/25 10:05 Mineral Oil/White Petrolatum Ointment EACH EYE 1 applic Q12HR [facility] Administration Ondansetron HCl 4 mg 10/17/25 07:51 10/18/25 06:55 Ondansetron Inj 4 Mg/2 Ml Vial IV PUSH 4 mg Q6H PRN Administration Nausea And Vomiting Pantoprazole Sodium 40 mg 10/18/25 09:00 10/23/25 08:56 Pantoprazole Sodium Iv 40 Mg Vial IV PUSH 40 mg QAM [facility] Administration Pravastatin Sodium 40 mg 10/16/25 19:05 10/23/25 08:55 Pravastatin Sodium 20 Mg Tablet BY MOUTH 40 mg DAILY [facility] Administration Sodium Chloride 10 ml 10/18/25 14:00 10/23/25 13:53 Central Line Flush IV PUSH 10 ml Q8HR [facility] Administration Sodium Chloride 10 ml 10/18/25 10:10 Central Line Flush IV PUSH PRN PRN with TPN bag changes Sodium Chloride 20 ml 10/18/25 10:10 10/20/25 05:27 Central Line Flush IV PUSH 20 ml PRN PRN Administration after blood draws Radiology Results: ITS Impressions Chest CTA 10/16/25 16:25 IMPRESSION: 1. Pulmonary emboli in subsegmental pulmonary arteries in the bilateral basilar lower lobes with relatively low clot burden and without evident right heart strain. Dr. French discussed these findings with Dr. Guadalupe at 4:40 PM. 2. Diffuse bilateral lung disease suspicious for atypical pneumonia with appearance similar to COVID pneumonia as manifest during the early stages of the pandemic. 3. Small amount of pneumomediastinum of indeterminate origin. Chest CT 10/21/25 14:20 IMPRESSION: 1. Severe pneumomediastinum with air tracking cephalad into the neck soft tissues resulting in extensive subcutaneous emphysema in the neck, and lies right-sided chest wall. 2. Multifocal consolidative changes and trace bilateral pleural effusions with overall worse appearance compared to October 16 exam. 3. Other findings as above. Venous Doppler Study 10/22/25 12:07 IMPRESSION: 1. Somewhat limited examination with no deep venous thrombosis identified. Chest X-Ray 10/23/25 09:45 Impression: Bilateral pneumonia superimposed on chronic lung disease. The findings appear slightly progressed compared to the previous study. Labs Labs: Laboratory Results - last 24 hr 10/21/25 10/22/25 10/22/25 12:22 17:32 18:42 WBC RBC Hgb Hct MCV MCH MCHC RDW Plt Count MPV Immature Gran % (Auto) Neut % (Auto) Lymph % (Auto) [place] % (Auto) Eos % (Auto) Baso % (Auto) Lymph # (Auto) [place] # (Auto) Eos # (Auto) Baso # (Auto) Abs Immat Gran (auto) Absolute Neuts (auto) Absolute Nucleated RBC Band Neutrophils % Nucleated RBC % Platelet Estimate Anisocytosis Macrocytosis Schistocytes APTT 102.7 H Puncture Site ABG pH ABG pCO2 ABG pO2 ABG PO2/FiO2 Ratio ABG HCO3 ABG O2 Saturation ABG O2 Content ABG Base Excess A-a Gradient Oxyhemoglobin Carboxyhemoglobin Methemoglobin Reduced Hemoglobin Total Hemoglobin O2 Delivery Device O2 Liters/Min Minute Volume Vent Rate Vent Mode FiO2 Tidal Volume PEEP Peak Inspir Pressure Pressure Support Sodium Potassium Chloride Carbon Dioxide Anion Gap BUN Creatinine Estim Creat Clear Calc Estimated GFR Glucose POC Capillary Glucose 108 H Calcium Phosphorus Magnesium Total Bilirubin AST ALT Alkaline Phosphatase Total Protein Albumin Triglycerides Miscellaneous Test Comment 10/22/25 10/23/25 10/23/25 23:35 04:31 04:35 WBC 12.4 H RBC 2.66 L Hgb 10.6 L Hct 30.7 L MCV 115.4 H MCH 39.8 H MCHC 34.5 RDW 14.8 H Plt Count 148 L MPV 10.4 Immature Gran % (Auto) 4.6 H Neut % (Auto) 78.9 H Lymph % (Auto) 8.9 L [place] % (Auto) 6.4 Eos % (Auto) 0.8 Baso % (Auto) 0.4 Lymph # (Auto) 1.10 [place] # (Auto) 0.8 H Eos # (Auto) 0.1 Baso # (Auto) 0.1 Abs Immat Gran (auto) 0.57 H Absolute Neuts (auto) 9.8 H Absolute Nucleated RBC 0.310 H Band Neutrophils % Not Reportable Nucleated RBC % 2.5 H Platelet Estimate Slightly decreased Anisocytosis 1+ Macrocytosis 1+ Schistocytes None seen APTT 74.7 H Puncture Site Left radial ABG pH 7.407 ABG pCO2 56.9 H ABG pO2 79.3 L ABG PO2/FiO2 Ratio Not Reportable ABG HCO3 35.0 H ABG O2 Saturation 95.5 ABG O2 Content 35.0 H ABG Base Excess 8.7 A-a Gradient 14.9 Oxyhemoglobin 93.5 Carboxyhemoglobin 1.5 Methemoglobin 0.3 Reduced Hemoglobin 4.7 Total Hemoglobin 11.3 L O2 Delivery Device Ventilator O2 Liters/Min Not Reportable Minute Volume Not Reportable Vent Rate 18 Vent Mode Cmv FiO2 75 Tidal Volume 350 PEEP 10 Peak Inspir Pressure Not Reportable Pressure Support Not Reportable Sodium 130 L Potassium 3.9 Chloride 96 L Carbon Dioxide 37 H Anion Gap -3 L BUN 25 H D Creatinine 0.77 Estim Creat Clear Calc 67 Estimated GFR > 60 Glucose 92 POC Capillary Glucose 102 Calcium 7.1 L Phosphorus 3.1 Magnesium 2.5 H Total Bilirubin 0.3 AST 37 H ALT 43 H Alkaline Phosphatase 200 H Total Protein 5.2 L Albumin 2.5 L Triglycerides 142 Miscellaneous Test 10/23/25 13:58 WBC RBC Hgb Hct MCV MCH MCHC RDW Plt Count MPV Immature Gran % (Auto) Neut % (Auto) Lymph % (Auto) [place] % (Auto) Eos % (Auto) Baso % (Auto) Lymph # (Auto) [place] # (Auto) Eos # (Auto) Baso # (Auto) Abs Immat Gran (auto) Absolute Neuts (auto) Absolute Nucleated RBC Band Neutrophils % Nucleated RBC % Platelet Estimate Anisocytosis Macrocytosis Schistocytes APTT Puncture Site ABG pH ABG pCO2 ABG pO2 ABG PO2/FiO2 Ratio ABG HCO3 ABG O2 Saturation ABG O2 Content ABG Base Excess A-a Gradient Oxyhemoglobin Carboxyhemoglobin Methemoglobin Reduced Hemoglobin Total Hemoglobin O2 Delivery Device O2 Liters/Min Minute Volume Vent Rate Vent Mode FiO2 Tidal Volume PEEP Peak Inspir Pressure Pressure Support Sodium Potassium Chloride Carbon Dioxide Anion Gap BUN Creatinine Estim Creat Clear Calc Estimated GFR Glucose POC Capillary Glucose 103 Calcium Phosphorus Magnesium Total Bilirubin AST ALT Alkaline Phosphatase Total Protein Albumin Triglycerides Miscellaneous Test
--- NOTE | 2025-10-24 11:45 | PM.TDS ---
Transfer Discharge Sum: Prov Provider Date of admission: 10/16/25 18:12 Primary care physician: Yossi Reaves MD Admitting clinician: Jyoti Cuevas MD Consults: 10/21/25 07:39 Consult to Physician Routine Comment: spoke with Dr. Loomis @[id number](,) Consulting Provider: Hemant Loomis photoengraving retoucher/MD group to consult: Pulmonology Reason for consultation: Pneumonitis, bronchoscopy Has provider been notified: Yes 10/21/25 07:45 Consult to Physician Routine Comment: Consulting Provider: Ashtyn Laughlin photoengraving retoucher/MD group to consult: Infectious disease Reason for consultation: Severe pneumonia, immunocompromised Has provider been notified: Yes 10/21/25 07:52 Consult Infectious Disease Pharmacist Routine Comment: Initiate coordination of ID Physician consult. 10/21/25 12:53 Consult to Physician Routine Comment: spoke with Zoran in the office @[id number](,[phone]) Consulting Provider: Maria De Jesus Hussein photoengraving retoucher/MD group to consult: SURGERY Reason for consultation: PNEUMOMEDIASTINUM Has provider been notified: Yes Attending physician on discharge: Jose Rafael Wharton Discharging clinician: Jose Rafael Wharton Anticipated date of transfer: 10/23/25 Receiving physician/facility: [facility], Dr. Patel, medical ICU DS: Admitting Diagnosis Discharge Date 10/23/25 Admitting Diagnosis Acute respiratory failure DS: Discharge Diagnosis Discharge Diagnosis (1) Acute respiratory failure: Code(s): J96.00 - Acute respiratory failure, unspecified whether with hypoxia or hypercapnia Status: Acute (2) Pneumonia: Code(s): J18.9 - Pneumonia, unspecified organism Status: Acute (3) Pulmonary embolism: Code(s): I26.99 - Other pulmonary embolism without acute cor pulmonale Status: Acute (4) Breast cancer: Code(s): C50.919 - Malignant neoplasm of unspecified site of unspecified female breast Status: Acute (5) Hx of supraventricular tachycardia: Code(s): Z86.79 - Personal history of other diseases of the circulatory system Status: Acute (6) Hyperlipidemia: Code(s): E78.5 - Hyperlipidemia, unspecified Status: Acute (7) Pneumomediastinum: Code(s): J98.2 - Interstitial emphysema Status: Acute (8) Hypotension: Code(s): I95.9 - Hypotension, unspecified Status: Acute Transfer Discharge Sum: Med Medications Active and Home Medications: Home Medications anastrozole 1 mg tablet 1 mg PO DAILY #1 tablet 03/01/23 [Rx Confirmed 10/16/25] prochlorperazine maleate 10 mg tablet 10 mg PO Q8H PRN nausea and vomiting #1 tablet 03/01/23 [Rx Confirmed 10/16/25] gabapentin 300 mg capsule 300 mg PO BID 10/04/23 [History Confirmed 10/16/25] vibegron 75 mg tablet (Gemtesa) 75 mg PO DAILY 10/04/23 [History Confirmed 10/16/25] dicyclomine 20 mg tablet 20 mg PO QID PRN abdominal pain 04/10/24 [History Confirmed 10/16/25] abemaciclib 150 mg tablet (Verzenio) 150 mg PO BID 10/15/24 [History Confirmed 10/16/25] carvedilol phosphate 40 mg capsule,[id number] multiphase See Rx Instructions .Route .COMPLEX #90 caps 01/31/25 [Rx Confirmed 10/16/25] ondansetron 4 mg disintegrating tablet 4 mg PO Q8H PRN nausea and vomiting #7 tabs 04/02/25 [Rx Confirmed 10/16/25] biotin 10,000 mcg capsule 10,000 mcg PO DAILY 04/22/25 [History Confirmed 10/16/25] calcium carbonate 600 mg PO BID 04/22/25 [History Confirmed 10/16/25] multivitamin (Daily Multi-Vitamin tablet) 1 tablet PO DAILY 04/22/25 [History Confirmed 10/16/25] vitamin B complex 1 tablet PO DAILY 04/22/25 [History Confirmed 10/16/25] pravastatin 40 mg tablet See Rx Instructions .Route .COMPLEX #90 tabs 08/27/25 [Rx Confirmed 10/16/25] omeprazole 20 mg capsule,delayed release See Rx Instructions .Route .COMPLEX #90 caps 10/02/25 [Rx Confirmed 10/16/25] dextroamphetamine-amphetamine 15 mg tablet (Adderall) 15 mg PO BID #60 tabs 10/09/25 [Rx Confirmed 10/16/25] duloxetine 60 mg capsule,delayed release See Rx Instructions .Route .COMPLEX #90 caps 10/09/25 [Rx Confirmed 10/16/25] amitriptyline 50 mg tablet 50 mg PO QHS 10/16/25 [History Confirmed 10/16/25] levothyroxine 50 mcg tablet 50 mcg PO DAILY 10/16/25 [History Confirmed 10/16/25] Transfer Discharge Sum: Hosp Hospital Course Hospital course: Yamileth Sims is a 65 year old female with past medical history of breast cancer on chemotherapy verzenio, history of tongue cancer, ADHD, diastolic dysfunction, mitral valve prolapse presented to [place] [facility] with shortness of breath that is been going on from 1-2 weeks. Patient went to PCP and was found to be hypoxic and directed to ER she was recently started on azithromycin and steroids as an outpatient. She had been having dry cough and she was tachypneic when presented to the hospital in ER the CT of the chest showed a small pulmonary embolism with low clot burden and no right heart strain and diffuse lung disease suggestive of atypical pneumonia similar to COVID pneumonia and small amount of pneumomediastinum. Patient was also given Lasix in the ER. Patient was admitted initially to step-down unit and started on heparin infusion for PE. Patient's hypoxia and respiratory status worsened patient was transferred to ICU and intubated. She was started on broad-spectrum antibiotics in the follow vancomycin and meropenem Echocardiogram done on 10/19 showed diastolic dysfunction and EF of 60-65% Patient's hypoxia and diffuse bilateral infiltrate continue to get worse. Dr. Montaño spoke to patient's oncologist at [facility] and he mentioned the possibility of acute lung injury secondary to the chemotherapy medication the patient was on. Patient was started on steroids. Infectious Disease was also consulted.. Patient was empirically started on Bactrim to cover for Pneumocystis patient was heavily sedated and had to be chemically paralyzed with Nimbex infusion. Patient was placed in prone position. Patient had a bronchoscopy done with BAL collection. Repeat CT scan of the chest on 10/21 showed worsening of pneumomediastinum. We called [facility] transfer line for possible transfer. Dr. Montaño spoke to with thoracic surgeon who did not feel patient needs any surgical intervention hence patient was not accepted by [facility] at that time. We continued management at [facility]. Patient was given diuretics patient was overall positive on her balance to see that would help with improvement in hypoxia and infiltrates. Steroid dose was adjusted despite this intervention patient continued to get worse an on 10/23 patient was requiring 75% FiO2 and 12 peep. She also had increase in airway pressures on the ventilator. And she was also on low-dose Levophed for blood pressure support. I spoke to [facility] transfer center again regarding evaluating patient for VV ECMO. Patient was accepted by Dr. Patel for transferred to medical ICU to [facility] where they will evaluate patient for further management options. During hospital course patient's family including son and daughter were continuously updated with patient's status including how critical she was with high risk of mortality. Family was agreeable for transfer and understood the risks that involved with transfer process. Patient was transferred in stable but critical condition by air evac on10/23 Patient Condition: Critical Time Spent with Patient Time attestation: Total time spent providing and/or coordinating transfer services: Total time spent: Greater than 30 minutes Exam Narrative: General: Intubated on sedation, and chemical paralysis HEENT:? Pupils equal and reactive, sclera is clear Neck:? subcutaneous emphysema with crepitation Respiratory:? Coarse breath sounds diffusely, no wheezing, decreased at bases Cardiac:? S1-S2 is normal, regular rate and rhythm Abdomen:? Soft, nontender, nondistended, hypoactive bowel sounds Extremities:? Pitting edema bilateral lower extremities Neuro:? Intubated, sedated and chemically paralyzed, PERRL Skin:? No skin lesions noted Psych:? Unable to assess at this time DS: Data Data Completed and Pending Labs on day of discharge: Labs from last 24 hours 10/23/25 10/21/25 10/21/25 13:58 12:22 12:22 POC Capillary Glucose 103 Miscellaneous Test Comment Comment Preliminary micro results at discharge 10/21/25 12:25 Adenovirus Culture - Preliminary Bronchial Alveo Lavage Right Middle Lobe Influenza Type A Virus Culture - Preliminary Influenza Type B Virus Culture - Preliminary Parainfluenza Type 1 Virus Culture - Preliminary Parainfluenza Type 2 Virus Culture - Preliminary Parainfluenza Type 3 Virus Culture - Preliminary Respiratory Syncytial Virus Culture - Preliminary 10/21/25 12:26 Acid Fast Bacilli Culture - Preliminary Bronchial Alveo Lavage Right Middle Lobe
[2025-10-25 10:08] LABS: Clinical Relevance Notes (.); Fungitell Value <31.25 pg/mL (.); Interpretation Notes (.)
[2025-10-30 08:08] LABS: Chlamydia pneumoniae, PCR Negative (Negative)
== END 2025-10-23 17:08 | disposition short-term general hospital (02) | DRG 207 ==
LOC: ANHED 15:38 → ANH2MED 17:43 → ANHIMU 18:03 → ANHICU 10-17 01:06
PROVIDERS: General Practice; Internal Medicine; Internal Medicine Infectious Disease; Internal Medicine Pulmonary Disease; Nurse Practitioner Gerontology; Admitting Provider Family Medicine; Emergency Provider Emergency Medicine; PCP Family Medicine; Visit Provider Internal Medicine
DX: J18.9 Pneumonia, unspecified organism (principal); J96.00 Acute respiratory failure, unspecified whether with hypoxia or hypercapnia; I26.94 Multiple subsegmental thrombotic pulmonary emboli without acute cor pulmonale; J98.2 Interstitial emphysema; T45.1X5A Adverse effect of antineoplastic and immunosuppressive drugs, initial encounter; I34.1 Nonrheumatic mitral (valve) prolapse; E78.5 Hyperlipidemia, unspecified; M54.2 Cervicalgia; M21.379 Foot drop, unspecified foot; M54.50 Low back pain, unspecified; G89.29 Other chronic pain; G62.9 Polyneuropathy, unspecified; F41.9 Anxiety disorder, unspecified; F32.A Depression, unspecified; F90.9 Attention-deficit hyperactivity disorder, unspecified type; Z20.822 Contact with and (suspected) exposure to COVID-19; Z85.3 Personal history of malignant neoplasm of breast; Z85.810 Personal history of malignant neoplasm of tongue
CPT/HCPCS: 0202U; 31500; 36415; 36569; 36600; 71045; 71250; 71275; 80048; 80053; 80202; 81001; 82248; 82375; 82805; 82948; 83050; 83605; 83735; 83880; 84100; 84478; 84484; 85018; 85025; 85055; 85380; 85610; 85730; 85999; 86140; 86738; 87040; 87070; 87086; 87101; 87206; 87252; 87254; 87281; 87449; 87486; 87529; 87637; 87641; 87651; 87899; 92610; 93005; 93970; 94002; 94003; 94640; 96365; 96375; 99291; A9270; C1751; C8929; G0378; J0692; J0696; J1100; J1644; J1720; J1938; J2185; J2250; J2270; J2405; J2470; J2704; J2919; J3010; J3373; J3475; J3480; J7030; J7040; J7060; Q9957; Q9967